=== PATIENT | female | born 1940 | race Caucasian/White ===

== ENCOUNTER 2020-02-16 08:57 | Inpatient (IN) | payer MEDICARE, SELFPAY ==
--- NOTE | ~2020-02-16 | US_ITS ---
EXAMINATION: US venous doppler LE RT EXAM DATE: 02/16/2020 10:27 INDICATION: Right leg pain and swelling. TECHNIQUE: Multiple grayscale, color flow and Doppler images of the right lower extremity deep venous system were obtained and reviewed. There is no prior study for comparison. FINDINGS: The right common femoral, femoral, profunda and popliteal veins demonstrate normal color fl ow, respiratory variation, augmentation and compressibility. Peroneal and posterior tibial veins we re poorly visualized but didn't demonstrate color flow. IMPRESSION: Limited calf evaluation. No evidence of right lower extremity deep venous thrombosis. Reviewed, dictated and finalized at location B.
--- NOTE | ~2020-02-16 | XR_ITS ---
EXAMINATION: XR chest 1V portable EXAM DATE: 02/16/2020 09:50 INDICATION: Shortness of breath. TECHNIQUE: Portable AP frontal chest x-ray was obtained. Comparison is made to prior examination from 11/12/2018. FINDINGS: Some patchy bilateral lower lobe atelectasis or ammonia. Please clinically correlate. Mild cardiomegaly. There is no pneumothorax suspected. There are no pleural effusions. There is aortic art eriosclerosis. There are bony degenerative changes. IMPRESSION: 1. Patchy basilar infiltrate, could be atelectasis or pneumonia. Reviewed, dictated and finalized at location B.
[2020-02-16 09:04] VITALS: BP 146/97; PULSE 64; RESP 20; TEMP 37; O2SAT 99
--- NOTE | 2020-02-16 11:07 | ED.LOWEXIN ---
HPI - Extremity Injury (Lower) General Chief Complaint: Extremity Injury, Lower <KASANDRA Rios Last Filed: 02/16/20 13:31> Stated Complaint: R LOWER LEG PAIN/SWELLING <KASANDRA Rios Last Filed: 02/16/20 13:31> Time Seen by Provider: 02/16/20 09:04 <KASANDRA Rios Last Filed: 02/16/20 13:31> Source: patient and family <KASANDRA Rios Last Filed: 02/16/20 13:31> Mode of arrival: EMS <KASANDRA Rios Last Filed: 02/16/20 13:31> Limitations: no limitations <KASANDRA Rios Last Filed: 02/16/20 13:31> History of Present Illness HPI Narrative: Patient is a 79-year-old female who presents per EMS from home where she lives with her for evaluation of worsening pain redness swelling of the right lower extremity patient notes concern for DVT patient denies injury trauma similar occurrence patient does no history of chronic swelling in this extremity secondary to a fracture. Patient denies any URI symptoms or urinary bowel issues or other sources for infection patient denies antibiotic use in the recent past or currently. Patient on arrival is chronically ill-appearing weak appearing. Patient is currently on Xarelto for chronic atrial fibrillation <KASANDRA Rios Last Filed: 02/16/20 13:31> Related Data Home Medications: Home Medications Medication Instructions Recorded Confirmed amiodarone 400 mg PO DAILY 02/16/20 atorvastatin 40 mg PO DAILY 02/16/20 biotin 10,000 mcg PO DAILY 02/16/20 bupropion HCl 150 mg PO BID 02/16/20 calcium carbonate-vitamin D3 cap PO 02/16/20 [Calcium 600 with Vitamin D3] cholecalciferol (vitamin D3) 50 mcg PO DAILY 02/16/20 [Vitamin D3] clonazepam 1 mg PO DAILY 02/16/20 doxycycline hyclate 100 mg PO BID 02/16/20 duloxetine 30 mg PO HS 02/16/20 esomeprazole magnesium 40 mg PO DAILY 02/16/20 ferrous gluconate 236 mg PO DAILY 02/16/20 furosemide 80 mg PO DAILY 02/16/20 gabapentin 100 mg PO BID 02/16/20 levothyroxine 175 mcg PO ONCE 02/16/20 metoprolol tartrate 25 mg PO BID 02/16/20 mirabegron [Myrbetriq] 50 mg PO DAILY 02/16/20 mirtazapine 15 mg PO HS 02/16/20 oxycodone-acetaminophen 1 tablet PO Q6H PRN 02/16/20 potassium chloride 40 meq PO DAILY 02/16/20 pramipexole 0.25 mg PO HS 02/16/20 rivaroxaban [Xarelto] 40 mg PO DAILY 02/16/20 ropinirole 0.25 mg PO HS 02/16/20 trazodone 200 mg PO HS 02/16/20 trospium 20 mg PO DAILY 02/16/20 valsartan 320 mg PO DAILY 02/16/20 vit C,H-Dd-dshgi-lutein-zeaxan 1 tablet PO BID 02/16/20 [PreserVision AREDS-2] <Cali Emanuel PA-C - Last Filed: 02/16/20 13:31> Allergies/Adverse Reactions: Allergies Allergy/AdvReac Type Severity Reaction Status Date / Time Sulfa (Sulfonamide Allergy Unknown Verified 01/04/17 15:09 Antibiotics) <Cali Emanuel PA-C - Last Filed: 02/16/20 13:31> Review of Systems Review of Systems: All systems reviewed & are unremarkable except as noted in HPI and below <Cali Emanuel PA-C - Last Filed: 02/16/20 13:31> [facility] Past Medical History Medical History: Medical History (Updated 02/16/20 @ 13:31 by Cali Emanuel PA-C) Atrial fibrillation Morbid obesity Warfarin anticoagulation <Cali Emanuel PA-C - Last Filed: 02/16/20 13:31> Surgical History Surgical History: Surgical History History of orthopedic surgery <Cali Emanuel PA-C - Last Filed: 02/16/20 13:31> Family History Family History: Family History (Updated 01/07/17 @ 15:48 by DOCTOR UNKNOWN) Other Family history of arthritis Family history of cardiovascular disease Hypertension <Cali Emanuel PA-C - Last Filed: 02/16/20 13:31> Social History Social History: Social History Smoking status: Never smoker Alcohol intake: current <Cali
[2020-02-16 11:17] LABS: Basophils Percent Auto 0.3 % (0.2-1.2); Eosinophils Percent Auto 0.2 % (0-4.4); Hemoglobin 12.6 g/dL (12.0-15.0); Immature Granulocyte Absolute 0.06 K/mm3 (0.00-0.031); Immature Granulocyte Percent A 0.5 % (0-0.5); Lymphocytes Absolute Auto 0.52 K/mm3 (0.9-3.2); Mean Corpuscular HGB Conc 32.3 g/dl (32-36); Mean Corpuscular Hemoglobin 34.3 pg (26-34); Mean Corpuscular Volume 106.3 fl (80-100); Mean Platelet Volume 10.3 fl (7.4-10.4); Monocytes Percent Auto 7.6 % (2.6-8.5); Neutrophils Absolute Auto 11.4 K/mm3 (1.3-6.7); Neutrophils Percent Auto 87.4 % (45.5-73.1); Platelet Count Result 173 k/mm3 (150-375); Red Blood Count 3.67 M/mm3 (4.2-5.4); Red Cell Distribution Width 14.4 % (11.5-14.5)
[2020-02-16 11:27] LABS: INR 1.4
[2020-02-16 11:28] LABS: Partial Thromboplastin Time 33.7 SECONDS (22.3-36.8)
[2020-02-16 11:33] LABS: Alanine Aminotransferase 21 U/L (4-35); Albumin Level 3.9 g/dL (3.5-5.1); Alkaline Phosphatase 120 U/L (38-126); Anion Gap 5 mmol/L (8-16); Aspartate Amino Transferase 28 U/L (14-36); Bilirubin,Total 0.7 mg/dL (0.2-1.3); Blood Urea Nitrogen 24 mg/dL (7-17); Calcium 8.9 mg/dL (8.4-10.2); Carbon Dioxide 38 mmol/L (22-30); Chloride 97 mmol/L (98-107); Estimated CRCL calculation 60 ml/min; Estimated Glomerular Filt Rate > 60; Glucose 124 mg/dL (65-105); Sodium 140 mmol/L (137-145)
[2020-02-16 11:40] LABS: CRP 3.4 mg/dL (<1.0)
[2020-02-16 11:43] LABS: Add Urine Microscopic? YES; Appearance Urine Cloudy (Clear); Bacteria Urine Trace /hpf; Bilirubin Urine Negative (Negative); Color Urine Yellow (Yellow); Glucose Urine UA Negative (Negative); Ketones Urine Negative (Negative); Leukocyte Esterase Ur Trace LEU/UL (Negative); Mucus Urine Rare /lpf; Nitrate Urine Positive (Negative); Protein Urine Negative (Negative); RBC Urine 0-2 /hpf (0-2); Specific Grav Ur 1.017 (1.001-1.035); Urobilinogen Urine Negative mg/dL (<2.0)
[2020-02-16 11:45] LABS: Blood Urine Negative (Negative)
[2020-02-16] MEDS: HYDROcodone/acetaminophen (*CRX) 5-325 MG TABLET 1 TAB PO (12:53)
[2020-02-16 13:29] VITALS: BP 128/94; PULSE 56; RESP 16; O2SAT 100
[2020-02-16 14:53] VITALS: BP 127/79; PULSE 60; RESP 18; O2SAT 99
[2020-02-16 15:00] VITALS: BP 136/61; PULSE 58; RESP 16; TEMP 36.4; O2SAT 93
--- NOTE | 2020-02-16 15:09 | ADMGEN ---
This patient, Michelle Rogel, was admitted to Medical Room 261-01. Patient/family oriented to hospital policies and general routines including ID bracelet, bed and alarms, visiting hours, pain management, procedures, bathroom and other care routines, personal items, smoking policy, room service/diet, and visiting hours. Valuables list has been completed. Information on how to activate the Rapid Response Team has been discussed. Patient/Family are encouraged to report perceived risks to care and to ask questions if they do not understand what they are told or what they should do.
[2020-02-16 15:52] VITALS: BMI 51.9
[2020-02-16] MEDS: LACTATED RINGERS 1,000 ML 75 ML IV CONT (15:52)
--- NOTE | 2020-02-16 20:00 | PM.IMHP ---
H&P: HPI History of Present Illness Date/Time: 02/16/20 20:00 Chief complaint: Cellulitis right leg/urinary tract infection Narrative: Michelle Rogel is a 79-year-old female with multiple medical problems including paroxysmal atrial fibrillation on long-term anticoagulation, hypertension, hyperlipidemia, obstructive sleep apnea, hypothyroidism, diastolic congestive heart failure, morbid obesity, and several other comorbidities who presented to the emergency department earlier today via EMS from home for evaluation of right leg pain and swelling. She has had faint erythema on her right leg for the past week or so, with worsening erythema and edema over the past 2 days. She also reports pretty significant pain in the right leg, worse with weight-bearing, that she describes as tight and burning in nature. She is also had a generalized sense of malaise. She denies fever, chills, sweats, chest pain, shortness of breath, nausea, and vomiting. She has a chronic cough which is unchanged. No cold or flu symptoms. No dysuria, urinary hesitancy, or frequency. She denies recent travel and sick contacts. No history of venous thromboembolism. Review of Systems Review of Systems: Narrative: Twelve systems were reviewed with pertinent positives and negatives as per HPI. No exposure to those positive for COVID-19. She denies sinus congestion, rhinorrhea, otalgia, and odynophagia. No anosmia or dysgeusia. She denies chest pain shortness of breath. She is compliant with her CPAP at nighttime. She has home oxygen p.r.n. as needed. She takes doxycycline twice a day for chronic open abdominal wound post hysterectomy. She denies symptoms of urinary tract infection. Except as documented, all other systems were reviewed and are negative. [facility] Past Medical History Medical History (Updated 02/16/20 @ 22:52 by Windy Levin PA-C) Anemia Anxiety Chronic diastolic congestive heart failure Echocardiogram in October 2018 demonstrated hyperdynamic left ventricular function with an ejection fraction of 71%, moderate left atrial enlargement, and grade 2 diastolic dysfunction. Chronic pain syndrome Chronic wound infection of abdomen On long-term doxycycline b.i.d. Current use of tubing oiler anticoagulation On Xarelto for stroke prophylaxis given paroxysmal atrial fibrillation. Depression Essential hypertension Gastroesophageal reflux disease Hyperlipidemia Macular degeneration Morbid obesity Obstructive sleep apnea on CPAP Overactive bladder Paroxysmal atrial fibrillation On Xarelto for stroke prophylaxis. Postsurgical hypothyroidism Restless leg syndrome Shingles Thyroid cancer Status post thyroidectomy. Surgical History Surgical History (Updated 02/16/20 @ 22:52 by Windy Levin PA-C) H/O bilateral cataract extraction History of appendectomy (~2003) Complicated postoperative course with chronic midline abdominal wound. History of hernia repair History of orthopedic surgery ORIF right lower extremity fracture. History of ovarian cystectomy History of spinal surgery History of thyroidectomy History of total abdominal hysterectomy History of total bilateral knee replacement Family History Family History Mother Alzheimer's dementia Hypertension Father Acute myocardial infarction Sibling Hypertension Other Family history of arthritis Family history of cardiovascular disease Social History Social History Social History: Surrogate decision maker: Prince Rogel, . Code status: Full code. Smoking status: Never smoker Alcohol intake: current Substance use: never Additional living arrangements comments: Lives in [place] with her . They have 3 children. Ambulates with a walker. Occupation/Education: retired Spiritual care concerns: No Meds Home Medications and Allergies H
[2020-02-16] MEDS: ACETAMINOPHEN 325 MG TABLET 650 MG PO (20:57)
[2020-02-16 21:27] VITALS: PULSE 60; RESP 17; O2SAT 91
[2020-02-16 22:00] VITALS: BP 144/53; PULSE 62; RESP 20; TEMP 36.8; O2SAT 92
[2020-02-16] MEDS: TOLNAFTATE 1% POWDER 45 GM BTL 1 APPLIC TOPICAL (23:15)
[2020-02-16] MEDS: oxyCODONE/ACETAMINOPHEN (*CRX) 5-325 MG TABLET 1 TABLET PO (23:39)
[2020-02-17] VITALS (10 sets, daily range): BP systolic 135–146; BP diastolic 50–65; PULSE 55–64; RESP 16–22; TEMP 36.4; O2SAT 90–100
[2020-02-17] MEDS: rOPINIRole HCL 0.25 MG TABLET PO ×2 (00:03→21:13)
[2020-02-17] MEDS: METOPROLOL TARTRATE 25 MG TABLET PO ×3 (00:04→21:14)
[2020-02-17] MEDS: DULoxetine HCL 30 MG CAPSULE.DR PO ×2 (00:05→21:13)
[2020-02-17] MEDS: PRAMIPEXOLE 0.25 MG TABLET PO ×2 (00:05→21:24)
[2020-02-17] MEDS: traZODone HCL 50 MG TABLET 200 MG PO ×2 (00:15→21:13)
[2020-02-17] MEDS: MIRTAZAPINE SOLTAB 15 MG TAB.DISPER PO ×2 (00:19→21:18)
[2020-02-17 06:32] LABS: Basophils Percent Auto 0.2 % (0.2-1.2); Eosinophils Absolute Auto 0.1 K/mm3 (0-0.3); Eosinophils Percent Auto 0.7 % (0-4.4); Hematocrit 34.3 % (37.0-47.0); Immature Granulocyte Absolute 0.06 K/mm3 (0.00-0.031); Immature Granulocyte Percent A 0.7 % (0-0.5); Lymphocytes Percent Auto 8.1 % (18.3-44.2); Mean Corpuscular HGB Conc 32.1 g/dl (32-36); Mean Corpuscular Hemoglobin 33.4 pg (26-34); Mean Corpuscular Volume 104.3 fl (80-100); Mean Platelet Volume 9.8 fl (7.4-10.4); Monocytes Absolute Auto 0.8 K/mm3 (0.1-0.6); Monocytes Percent Auto 9.3 % (2.6-8.5); Platelet Count Result 149 k/mm3 (150-375); Red Blood Count 3.29 M/mm3 (4.2-5.4); Red Cell Distribution Width 14.5 % (11.5-14.5); White Blood Count 8.6 K/mm3 (4.5-10.0)
[2020-02-17 06:44] LABS: Alanine Aminotransferase 15 U/L (4-35); Albumin Level 3.2 g/dL (3.5-5.1); Alkaline Phosphatase 93 U/L (38-126); Aspartate Amino Transferase 23 U/L (14-36); Bilirubin,Total 0.8 mg/dL (0.2-1.3)
[2020-02-17 07:16] LABS: Anion Gap 4 mmol/L (8-16); Blood Urea Nitrogen 20 mg/dL (7-17); Calcium 8.2 mg/dL (8.4-10.2); Carbon Dioxide 35 mmol/L (22-30); Chloride 98 mmol/L (98-107); Estimated CRCL calculation 59 ml/min; Estimated Glomerular Filt Rate > 60; Glucose 97 mg/dL (65-105); Hemoglobin A1C 4.8 % (<5.7); Potassium 3.8 mmol/L (3.4-5.0); Sodium 137 mmol/L (137-145)
[2020-02-17] MEDS: oxyCODONE/ACETAMINOPHEN (*CRX) 5-325 MG TABLET 1 TABLET PO ×3 (07:47→23:52)
[2020-02-17 08:09] LABS: Magnesium 2.2 mg/dL (1.6-2.3)
[2020-02-17] MEDS: LEVOTHYROXINE SODIUM 100 MCG TABLET PO (09:28)
[2020-02-17] MEDS: LEVOTHYROXINE SODIUM 75 MCG TABLET PO (09:28)
[2020-02-17] MEDS: AMIODARONE HCL 200 MG TABLET 400 MG PO (11:10)
[2020-02-17] MEDS: POTASSIUM CHLORIDE 20 MEQ TABLET.ER 40 MEQ PO (11:10)
[2020-02-17] MEDS: CHOLECALCIFEROL 1,000 UNITS TABLET 2000 UNITS PO (11:11)
[2020-02-17] MEDS: ATORVASTATIN 40 MG TABLET PO (11:11)
[2020-02-17] MEDS: GABAPENTIN 100 MG CAPSULE PO ×2 (11:12→16:45)
[2020-02-17] MEDS: MIRABEGRON 50 MG ER TABLET PO (11:12)
[2020-02-17] MEDS: DOXYCYCLINE HYCLATE 100 MG TABLET PO ×2 (11:12→16:45)
[2020-02-17] MEDS: PANTOPRAZOLE 40 MG TABLET PO (11:13)
[2020-02-17] MEDS: TOLNAFTATE 1% POWDER 45 GM BTL 1 APPLIC TOPICAL ×2 (11:13→21:23)
[2020-02-17] MEDS: VALSARTAN 160 MG TABLET 320 MG PO (11:13)
[2020-02-17 11:50] LABS: Free T4 Free Thyroxine Reflex 1.04 ng/dL (0.78-2.19)
[2020-02-17 12:32] LABS: Total Triiodothyronine (T3) 0.48 NG/ML (0.97-1.69)
[2020-02-17] MEDS: FERROUS GLUCONATE 324 MG TABLET PO (13:57)
--- NOTE | 2020-02-17 14:49 | PCOTNOTE ---
Attempted OT evaluation, patient declined stating that she has just been up with physical therapy and she does not want to do it again. Patient educated in importance of OT participation but patient continues to decline. Will continue to attempt.
--- NOTE | 2020-02-17 14:49 | PM.IMPN ---
Progress Note: A&P Assessment and Plan (1) Cellulitis of right leg: Code(s): L03.115 - Cellulitis of right lower limb Status: Acute Assessment and Plan: Continue IV ceftriaxone (day 2) and monitor for clinical improvement. Monitor blood cultures. (2) Abnormal urinalysis: Code(s): R82.90 - Unspecified abnormal findings in urine Status: Acute Assessment and Plan: Asymptomatic bacteriuria. Continue IV ceftriaxone while awaiting urine cultures. (3) Chronic wound infection of abdomen: Code(s): S31.109A - Unspecified open wound of abdominal wall, unspecified quadrant without penetration into peritoneal cavity, initial encounter; L08.9 - Local infection of the skin and subcutaneous tissue, unspecified Status: Acute Assessment and Plan: Patient has had this wound for several years after an abdominal surgery. Seen by wound RN. Continue wound care. No evidence of acute infection. (4) Essential hypertension: Code(s): I10 - Essential (primary) hypertension Status: Chronic Assessment and Plan: Blood pressures stable. Continue valsartan and metoprolol. Monitor BP and adjust treatment as needed. (5) Hyperlipidemia: Code(s): E78.5 - Hyperlipidemia, unspecified Status: Chronic Assessment and Plan: Continue home statin therapy. (6) Obstructive sleep apnea on CPAP: Code(s): G47.33 - Obstructive sleep apnea (adult) (pediatric); Z99.89 - Dependence on other enabling machines and devices Status: Chronic Assessment and Plan: CPAP. (7) Postsurgical hypothyroidism: Code(s): E89.0 - Postprocedural hypothyroidism Status: Chronic Assessment and Plan: Continue home levothyroxine. (8) Paroxysmal atrial fibrillation: Code(s): I48.0 - Paroxysmal atrial fibrillation Status: Chronic Assessment and Plan: Rate controlled on home amiodarone. On long-term anticoagulation with Xarelto. (9) Current use of continuous churn buttermaker anticoagulation: Code(s): Z79.01 - manager intermediate (current) use of anticoagulants Status: Chronic Assessment and Plan: Continue Xarelto. Subjective Date/time seen: 02/17/20 1330 Interval history: Ms. Rogel is a 79yo F admitted for right lower extremity cellulitis. She describes her right lower extremity pain is a bit improved today. She denies any chest pain, shortness of breath. She is tolerating oral intake without nausea, vomiting, or abdominal pain. No acute events overnight, offers no complaints. Discussed at length the importance of her taking her home Lasix which unfortunately she adamantly declines despite education. Review of Systems Review of Systems: Narrative: Twelve systems were reviewed with pertinent positives and negatives as per HPI. Exam Narrative: Exam Narrative: General: Morbidly obese female resting comfortably sitting up in bedside chair in no acute distress. HEENT: Normocephalic, EOMI, oral mucosa moist. Cardiovascular: Rate and rhythm are regular. Respiratory: Lungs clear to auscultation in all guzman. Non-labored breathing. Abdomen: Soft, non-tender, non-distended, bowel sounds present. Chronic abdominal wound is covered with a Mepilex. Extremities: [place] edema to ANTONY lower extremities below the knee with chronic skin venous stasis skin changes. Right lower extremity erythematous and indurated, edematous and warm to touch nearly circumferential at mid-adan. Neuro: No focal neurological deficits. Speech is clear. Objective Data Vital Signs Vital Signs:
[2020-02-17] MEDS: RIVAROXABAN 20 MG TABLET PO (16:45)
[2020-02-18] VITALS (8 sets, daily range): BP systolic 140–152; BP diastolic 65–86; PULSE 50–82; RESP 12–20; TEMP 36.1–37.1; O2SAT 91–98
[2020-02-18] MEDS: LEVOTHYROXINE SODIUM 100 MCG TABLET PO (05:48)
[2020-02-18] MEDS: LEVOTHYROXINE SODIUM 75 MCG TABLET PO (05:48)
[2020-02-18] MEDS: METOPROLOL TARTRATE 25 MG TABLET PO ×2 (09:11→20:23)
[2020-02-18] MEDS: MIRABEGRON 50 MG ER TABLET PO (09:11)
[2020-02-18] MEDS: GABAPENTIN 100 MG CAPSULE PO ×2 (09:11→17:31)
[2020-02-18] MEDS: AMIODARONE HCL 200 MG TABLET 400 MG PO (09:12)
[2020-02-18] MEDS: POTASSIUM CHLORIDE 20 MEQ TABLET.ER 40 MEQ PO (09:12)
[2020-02-18] MEDS: CHOLECALCIFEROL 1,000 UNITS TABLET 2000 UNITS PO (09:12)
[2020-02-18] MEDS: VALSARTAN 160 MG TABLET 320 MG PO (09:12)
[2020-02-18] MEDS: PANTOPRAZOLE 40 MG TABLET PO (09:12)
[2020-02-18] MEDS: ATORVASTATIN 40 MG TABLET PO (09:13)
[2020-02-18] MEDS: DOXYCYCLINE HYCLATE 100 MG TABLET PO ×2 (09:13→17:31)
[2020-02-18] MEDS: TOLNAFTATE 1% POWDER 45 GM BTL 1 APPLIC TOPICAL ×2 (09:13→20:27)
--- NOTE | 2020-02-18 09:36 | PM.IMPN ---
Progress Note: A&P Assessment and Plan (1) Cellulitis of right leg: Code(s): L03.115 - Cellulitis of right lower limb Status: Acute Assessment and Plan: Continue IV ceftriaxone (day 3) and monitor for clinical improvement. Monitor blood cultures. Blood cultures 1 of 2 positive with gram positive bacilli. It is possible this could be contaminant. Start Vancomycin until this pathogen is identified, repeat blood cultures. (2) Urinary tract infection: Qualifiers: Urinary tract infection type: acute cystitis Hematuria presence: without hematuria Qualified Code(s): N30.00 - Acute cystitis without hematuria Code(s): N39.0 - Urinary tract infection, site not specified Status: Acute Assessment and Plan: Urine culture grew > 100,000 Proteus mirabilis. Continue IV rocephin as noted above. (3) Chronic wound infection of abdomen: Qualifiers: Encounter type: subsequent encounter Qualified Code(s): S31.109D - Unspecified open wound of abdominal wall, unspecified quadrant without penetration into peritoneal cavity, subsequent encounter; L08.9 - Local infection of the skin and subcutaneous tissue, unspecified Code(s): S31.109A - Unspecified open wound of abdominal wall, unspecified quadrant without penetration into peritoneal cavity, initial encounter; L08.9 - Local infection of the skin and subcutaneous tissue, unspecified Status: Acute Assessment and Plan: Patient has had this wound for several years after an abdominal surgery. Seen by wound RN. Continue wound care. No evidence of acute infection. (4) Essential hypertension: Code(s): I10 - Essential (primary) hypertension Status: Chronic Assessment and Plan: Blood pressures stable. Continue valsartan and metoprolol. Monitor BP and adjust treatment as needed. (5) Hyperlipidemia: Qualifiers: Hyperlipidemia type: unspecified Qualified Code(s): E78.5 - Hyperlipidemia, unspecified Code(s): E78.5 - Hyperlipidemia, unspecified Status: Chronic Assessment and Plan: Continue home statin therapy. (6) Obstructive sleep apnea on CPAP: Code(s): G47.33 - Obstructive sleep apnea (adult) (pediatric); Z99.89 - Dependence on other enabling machines and devices Status: Chronic Assessment and Plan: CPAP. (7) Postsurgical hypothyroidism: Code(s): E89.0 - Postprocedural hypothyroidism Status: Chronic Assessment and Plan: Continue home levothyroxine. (8) Paroxysmal atrial fibrillation: Code(s): I48.0 - Paroxysmal atrial fibrillation Status: Chronic Assessment and Plan: Rate controlled on home amiodarone. On long-term anticoagulation with Xarelto. (9) Current use of group home anticoagulation: Code(s): Z79.01 - terminologist (current) use of anticoagulants Status: Chronic Assessment and Plan: Continue Xarelto. Subjective Date/time seen: 02/18/20 0845 Interval history: Ms. Rogel is a 79yo F admitted for right lower extremity cellulitis. Her right leg pain is improved today. She tolerated some breakfast without nausea, vomiting or abdominal pain. She denies chest pain, shortness of breath or cough. Discussed the importance of her taking her home Lasix which unfortunately she adamantly declines despite education. Review of Systems Review of Systems: Narrative: Twelve systems were reviewed with pertinent positives and negatives as per HPI. Exam Narrative: Exam Narrative: General: Morbidly obese female resting
[2020-02-18] MEDS: FERROUS GLUCONATE 324 MG TABLET PO (11:33)
[2020-02-18] MEDS: oxyCODONE/ACETAMINOPHEN (*CRX) 5-325 MG TABLET 1 TABLET PO ×2 (11:33→17:32)
--- NOTE | 2020-02-18 12:02 | PCOTNOTE ---
On 02/18/20, the student, Gela Ramirez, provided care and completed [facility] documentation on this patient. I have reviewed the student's documentation and agree with the findings.
[2020-02-18 12:13] LABS: Basophils Percent Auto 0.3 % (0.2-1.2); Eosinophils Absolute Auto 0.1 K/mm3 (0-0.3); Eosinophils Percent Auto 0.8 % (0-4.4); Hematocrit 38.2 % (37.0-47.0); Hemoglobin 12.3 g/dL (12.0-15.0); Immature Granulocyte Absolute 0.06 K/mm3 (0.00-0.031); Immature Granulocyte Percent A 0.7 % (0-0.5); Lymphocytes Absolute Auto 0.54 K/mm3 (0.9-3.2); Lymphocytes Percent Auto 5.9 % (18.3-44.2); Mean Corpuscular HGB Conc 32.2 g/dl (32-36); Mean Corpuscular Volume 105.5 fl (80-100); Mean Platelet Volume 10.3 fl (7.4-10.4); Monocytes Absolute Auto 0.7 K/mm3 (0.1-0.6); Monocytes Percent Auto 7.6 % (2.6-8.5); Neutrophils Absolute Auto 7.7 K/mm3 (1.3-6.7); Neutrophils Percent Auto 84.7 % (45.5-73.1); Platelet Count Result 174 k/mm3 (150-375); Red Blood Count 3.62 M/mm3 (4.2-5.4); Red Cell Distribution Width 14.2 % (11.5-14.5); White Blood Count 9.1 K/mm3 (4.5-10.0)
[2020-02-18 12:29] LABS: Anion Gap 3 mmol/L (8-16); Blood Urea Nitrogen 16 mg/dL (7-17); Calcium 8.8 mg/dL (8.4-10.2); Carbon Dioxide 37 mmol/L (22-30); Chloride 97 mmol/L (98-107); Estimated CRCL calculation 61 ml/min; Estimated Glomerular Filt Rate > 60; Glucose 112 mg/dL (65-105); Magnesium 2.3 mg/dL (1.6-2.3); Potassium 4.3 mmol/L (3.4-5.0); Sodium 137 mmol/L (137-145)
[2020-02-18] MEDS: RIVAROXABAN 20 MG TABLET PO (17:32)
[2020-02-18] MEDS: traZODone HCL 50 MG TABLET 200 MG PO (20:23)
[2020-02-18] MEDS: PRAMIPEXOLE 0.25 MG TABLET PO (20:24)
[2020-02-18] MEDS: MIRTAZAPINE SOLTAB 15 MG TAB.DISPER PO (20:24)
[2020-02-18] MEDS: DULoxetine HCL 30 MG CAPSULE.DR PO (20:24)
[2020-02-18] MEDS: rOPINIRole HCL 0.25 MG TABLET PO (20:24)
[2020-02-18] MEDS: ACETAMINOPHEN 325 MG TABLET 650 MG PO (20:30)
[2020-02-19] VITALS (7 sets, daily range): BP systolic 144–162; BP diastolic 59–92; PULSE 50–78; RESP 16–22; TEMP 36.1–36.9; O2SAT 94–99
[2020-02-19] MEDS: LEVOTHYROXINE SODIUM 75 MCG TABLET PO (06:16)
[2020-02-19] MEDS: LEVOTHYROXINE SODIUM 100 MCG TABLET PO (06:16)
[2020-02-19 07:40] LABS: Basophils Percent Auto 0.3 % (0.2-1.2); Eosinophils Absolute Auto 0.2 K/mm3 (0-0.3); Eosinophils Percent Auto 1.8 % (0-4.4); Hematocrit 37.5 % (37.0-47.0); Hemoglobin 12.1 g/dL (12.0-15.0); Immature Granulocyte Absolute 0.08 K/mm3 (0.00-0.031); Immature Granulocyte Percent A 0.9 % (0-0.5); Lymphocytes Absolute Auto 0.62 K/mm3 (0.9-3.2); Lymphocytes Percent Auto 7.1 % (18.3-44.2); Mean Corpuscular HGB Conc 32.3 g/dl (32-36); Mean Corpuscular Hemoglobin 33.4 pg (26-34); Mean Corpuscular Volume 103.6 fl (80-100); Mean Platelet Volume 9.7 fl (7.4-10.4); Monocytes Absolute Auto 0.7 K/mm3 (0.1-0.6); Monocytes Percent Auto 8.3 % (2.6-8.5); Neutrophils Absolute Auto 7.1 K/mm3 (1.3-6.7); Neutrophils Percent Auto 81.6 % (45.5-73.1); Platelet Count Result 195 k/mm3 (150-375); Red Blood Count 3.62 M/mm3 (4.2-5.4); Red Cell Distribution Width 13.9 % (11.5-14.5); White Blood Count 8.7 K/mm3 (4.5-10.0)
[2020-02-19 07:55] LABS: Anion Gap 5 mmol/L (8-16); Blood Urea Nitrogen 16 mg/dL (7-17); Calcium 8.8 mg/dL (8.4-10.2); Carbon Dioxide 35 mmol/L (22-30); Chloride 98 mmol/L (98-107); Estimated CRCL calculation 61 ml/min; Estimated Glomerular Filt Rate > 60; Glucose 103 mg/dL (65-105); Magnesium 2.2 mg/dL (1.6-2.3); Potassium 4.2 mmol/L (3.4-5.0); Sodium 138 mmol/L (137-145)
[2020-02-19] MEDS: ATORVASTATIN 40 MG TABLET PO (09:02)
[2020-02-19] MEDS: AMIODARONE HCL 200 MG TABLET 400 MG PO (09:02)
[2020-02-19] MEDS: DOXYCYCLINE HYCLATE 100 MG TABLET PO ×2 (09:02→17:28)
[2020-02-19] MEDS: GABAPENTIN 100 MG CAPSULE PO ×2 (09:02→17:28)
[2020-02-19] MEDS: CHOLECALCIFEROL 1,000 UNITS TABLET 2000 UNITS PO (09:02)
[2020-02-19] MEDS: POTASSIUM CHLORIDE 20 MEQ TABLET.ER 40 MEQ PO (09:03)
[2020-02-19] MEDS: METOPROLOL TARTRATE 25 MG TABLET PO ×2 (09:03→20:29)
[2020-02-19] MEDS: MIRABEGRON 50 MG ER TABLET PO (09:03)
[2020-02-19] MEDS: PANTOPRAZOLE 40 MG TABLET PO (09:03)
[2020-02-19] MEDS: VALSARTAN 160 MG TABLET 320 MG PO (09:03)
[2020-02-19] MEDS: TOLNAFTATE 1% POWDER 45 GM BTL 1 APPLIC TOPICAL ×2 (09:07→20:35)
[2020-02-19] MEDS: FERROUS GLUCONATE 324 MG TABLET PO (11:55)
[2020-02-19] MEDS: oxyCODONE/ACETAMINOPHEN (*CRX) 5-325 MG TABLET 1 TABLET PO ×2 (12:49→23:03)
--- NOTE | 2020-02-19 14:09 | P.PNIM_ITS ---
Progress Note: A&P Assessment and Plan (1) Cellulitis of right leg: Code(s): L03.115 - Cellulitis of right lower limb Status: Acute Assessment and Plan: * Continue IV ceftriaxone (day 4), clinically improving. Monitor blood cultures. * Vancomycin started 02/17 for empiric coverage of blood cultures 02/15; 1 of 2 bcx positive growing Bacillus species. It is possible this could be contaminant vs. true/transient bacteremia. Repeat blood cultures from 02/17 are no growth to date. * Appreciate Dr Cerda's recommendations regarding the blood cultures. (2) Urinary tract infection: Qualifiers: Hematuria presence: without hematuria Urinary tract infection type: acute cystitis Qualified Code(s): N30.00 - Acute cystitis without hematuria Code(s): N39.0 - Urinary tract infection, site not specified Status: Acute Assessment and Plan: * Urine culture grew > 100,000 Proteus mirabilis. Continue IV rocephin as noted above. (3) Chronic wound infection of abdomen: Qualifiers: Encounter type: subsequent encounter Qualified Code(s): S31.109D - Unspecified open wound of abdominal wall, unspecified quadrant without penetration into peritoneal cavity, subsequent encounter; L08.9 - Local infec tion of the skin and subcutaneous tissue, unspecified Code(s): S31.109A - Unspecified open wound of abdominal wall, unspecified quadrant without penetration into peritoneal cavity, initial encounter; L08.9 - Local infection of the skin and subcutaneous tissue, unspecified Status: Acute Assessment and Plan: * Patient has had this wound for several years after an abdominal surgery. Seen by wound RN. Continue wound care. No evidence of acute infection. Not p ainful. (4) Essential hypertension: Code(s): I10 - Essential (primary) hypertension Status: Chronic Assessment and Plan: * Blood pressures stable/high end of normal may be secondary to pain. Continue valsartan and metoprolol. Monitor BP and adjust treatment as needed. (5) Hyperlipidemia: Qualifiers: Hyperlipidemia type: unspecified Qualified Code(s): E78.5 - Hyperlipidemia, unspecified Code(s): E78.5 - Hyperlipidemia, unspecified Status: Chronic Assessment and Plan: * Continue home statin therapy. (6) Obstructive sleep apnea on CPAP: Code(s): G47.33 - Obstructive sleep apnea (adult) (pediatric); Z99.89 - Dependence on other enabling machines and devices Status: Chronic Assessment and Plan: * CPAP. (7) Postsurgical hypothyroidism: Code(s): E89.0 - Postprocedural hypothyroidism Status: Chronic Assessment and Plan: * Continue home levothyroxine. (8) Paroxysmal atrial fibrillation: Code(s): I48.0 - Paroxysmal atrial fibrillation Status: Chronic Assessment and Plan: * Rate controlled on home amiodarone. On long-term anticoagulation with Xarelt o. (9) Current use of termination clerk anticoagulation: Code(s): Z79.01 - shelter (current) use of anticoagulants Status: Chronic Assessment and Plan: * Continue Xarelto. Subjective Date/time seen: 02/19/20914 I
--- NOTE | 2020-02-19 14:09 | PM.IMPN ---
Progress Note: A&P Assessment and Plan (1) Cellulitis of right leg: Code(s): L03.115 - Cellulitis of right lower limb Status: Acute Assessment and Plan: Continue IV ceftriaxone (day 4), clinically improving. Monitor blood cultures. Vancomycin started 02/17 for empiric coverage of blood cultures 02/15; 1 of 2 bcx positive growing Bacillus species. It is possible this could be contaminant vs. true/transient bacteremia. Repeat blood cultures from 02/17 are no growth to date. Appreciate Dr Cerda's recommendations regarding the blood cultures. (2) Urinary tract infection: Qualifiers: Hematuria presence: without hematuria Urinary tract infection type: acute cystitis Qualified Code(s): N30.00 - Acute cystitis without hematuria Code(s): N39.0 - Urinary tract infection, site not specified Status: Acute Assessment and Plan: Urine culture grew > 100,000 Proteus mirabilis. Continue IV rocephin as noted above. (3) Chronic wound infection of abdomen: Qualifiers: Encounter type: subsequent encounter Qualified Code(s): S31.109D - Unspecified open wound of abdominal wall, unspecified quadrant without penetration into peritoneal cavity, subsequent encounter; L08.9 - Local infection of the skin and subcutaneous tissue, unspecified Code(s): S31.109A - Unspecified open wound of abdominal wall, unspecified quadrant without penetration into peritoneal cavity, initial encounter; L08.9 - Local infection of the skin and subcutaneous tissue, unspecified Status: Acute Assessment and Plan: Patient has had this wound for several years after an abdominal surgery. Seen by wound RN. Continue wound care. No evidence of acute infection. Not painful. (4) Essential hypertension: Code(s): I10 - Essential (primary) hypertension Status: Chronic Assessment and Plan: Blood pressures stable/high end of normal may be secondary to pain. Continue valsartan and metoprolol. Monitor BP and adjust treatment as needed. (5) Hyperlipidemia: Qualifiers: Hyperlipidemia type: unspecified Qualified Code(s): E78.5 - Hyperlipidemia, unspecified Code(s): E78.5 - Hyperlipidemia, unspecified Status: Chronic Assessment and Plan: Continue home statin therapy. (6) Obstructive sleep apnea on CPAP: Code(s): G47.33 - Obstructive sleep apnea (adult) (pediatric); Z99.89 - Dependence on other enabling machines and devices Status: Chronic Assessment and Plan: CPAP. (7) Postsurgical hypothyroidism: Code(s): E89.0 - Postprocedural hypothyroidism Status: Chronic Assessment and Plan: Continue home levothyroxine. (8) Paroxysmal atrial fibrillation: Code(s): I48.0 - Paroxysmal atrial fibrillation Status: Chronic Assessment and Plan: Rate controlled on home amiodarone. On long-term anticoagulation with Xarelto. (9) Current use of snf anticoagulation: Code(s): Z79.01 - oil heaterman (current) use of anticoagulants Status: Chronic Assessment and Plan: Continue Xarelto. Subjective Date/time seen: 02/19/20914 Interval history: Ms. Rogel is a 79yo F admitted for right lower extremity cellulitis. Her right leg pain is improved and she is feeling well. Difficulty with IV access last night but after that she slept well with her CPAP on. Tolerated some breakfast without nausea or vomiting. She denies chest pain, shortness of breath or cough. Again discussed the importance of her taking her home Lasix which
--- NOTE | 2020-02-19 16:10 | WPDINFPN2 ---
Progress Note: A&P Assessment and Plan (1) Bacteremia: Code(s): R78.81 - Bacteremia Status: Acute Assessment and Plan: 1. Bacillus bacteremia, skin contaminant 2. RLE cellulitis 3. Chronic mesh infection REC No further Rx/eval for the + BC. Can change to oral antibiotic such as cefdinir once cellulitis substantially improved. Once that is done, then resume chronic doxycycline. Subjective Date/time seen: 02/19/20 16:10 Objective Data Vital Signs Vital Signs: Vital Signs - 24 hr 02/18/20 20:23 02/18/20 22:00 02/18/20 22:50 Temperature 36.8 C Pulse Rate 82 58 L 60 Respiratory Rate 20 17 Blood Pressure 151/86 H Pulse Oximetry 94 94 02/19/20 04:55 02/19/20 09:02 02/19/20 09:03 Temperature 36.1 C L Pulse Rate 50 L 57 L 57 L Respiratory Rate 22 H Blood Pressure 144/65 H Pulse Oximetry 99 02/19/20 14:00 Temperature 36.9 C Pulse Rate 56 L Respiratory Rate 16 Blood Pressure 147/59 H Pulse Oximetry 94 Intake/Output Intake/Output: Intake & Output 02/16/20 02/17/20 02/18/20 02/19/20 23:59 23:59 23:59 23:59 Intake Total 270 3230 1640 1150 Output Total 500 200 Balance 270 2730 1640 950 Meds/Results Medications: Active Medications Generic Name Dose Route Start Last Admin Trade Name Freq PRN Reason Stop Dose Admin Acetaminophen 650 mg 02/16/20 20:49 02/18/20 20:30 Acetaminophen 325 Mg Tablet PO 650 mg Q6H PRN Administration Mild Pain (1-3) or Fever Amiodarone HCl 400 mg 02/17/20 09:00 02/19/20 09:02 Pacerone PO 03/18/20 09:01 400 mg DAILY DARWIN Administration Atorvastatin Calcium 40 mg 02/17/20 09:00 02/19/20 09:02 Lipitor PO 40 mg DAILY DARWIN Administration Bupropion HCl 150 mg 02/16/20 23:30 02/19/20 09:03 Wellbutrin-Sr (12 Hr) PO 150 mg Q12HR DARWIN Administration Calcium Carbonate 500 mg 02/17/20 09:00 02/19/20 09:03 Os-Messi 500 +D Tablet PO 03/18/20 09:01 500 mg DAILY DARWIN Administration Clonazepam 1 mg 02/16/20 22:55 Klonopin Tablet PO DAILY PRN Anxiety Doxycycline Hyclate 100 mg 02/17/20 09:00 02/19/20 09:02 Vibramycin Tab PO 100 mg BID DARWIN Administration Duloxetine HCl 30 mg 02/16/20 23:35 02/18/20 20:24 Cymbalta PO 30 mg HS DARWIN Administration Ferrous Gluconate 324 mg 02/17/20 12:00 02/19/20 11:55 Ferrous Gluconate PO 324 mg DAILY@1200 DARWIN Administration Gabapentin 100 mg 02/17/20 09:00 02/19/20 09:02 Neurontin PO 100 mg BID DARWIN Administration Ceftriaxone Sodium/Dextrose 1 gm in 50 mls @ 100 mls/hr 02/19/20 09:00 02/19/20 09:28 Rocephin 1 Gm/D5w 50 Ml IVPB Infused Q24H DARWIN Infusion Vancomycin HCl 1,750 mg in 500 mls @ 250 mls/hr 02/19/20 10:00 02/19/20 12:30 Vancomycin 1,750 Mg/D5w 500 Ml IVPB Infused Q18H DARWIN Infusion Levothyroxine Sodium 100 mcg 02/17/20 07:45 02/19/20 06:16 Synthroid PO 100 mcg DAILY@0630 DARWIN Administration Levothyroxine Sodium 75 mcg 02/17/20 07:50 02/19/20 06:16 Synthroid PO 75 mcg DAILY@0630 DARWIN Administration Metoprolol Tartrate 25 mg 02/16/20 23:35 02/19/20 09:03 Lopressor PO 25 mg Q12HR DARWIN Administration Mirabegron 50 mg 02/17/20 09:00 02/19/20 09:03 Myrbetriq PO 50 mg DAILY DARWIN Administration Mirtazapine 15 mg 02/16/20 23:40 02/18/20 20:24 Remeron Soltab PO 15 mg HS DARWIN Administration Trospium- 20 each 02/17/20 09:00 02/18/20 17:32 Nonformulary. XX 03/18/20 09:01 Not Given DAILY DARWIN Ondansetron HCl 4 mg 02/16/20 13:32 Zofran Inj IV PUSH Q4H PRN Nausea Oxycodone/Acetaminophen 1 tablet 02/16/20 22:55 02/19/20 12:49 Oxycodone/Acetaminophen (*Crx) 5-325 Mg Tablet PO 1 tablet Q6H PRN Administration Pain, Moderate Pantoprazole Sodium 40 mg 02/17/20 09:00 02/19/20 09:03 Protonix PO 03/18/20 09:01 40 mg DAILY DARWIN Administration Potassium Chloride 40 meq 02/17/20 08:00
[2020-02-19] MEDS: RIVAROXABAN 20 MG TABLET PO (17:28)
--- NOTE | 2020-02-19 20:27 | CONS_ITS ---
DATE OF CONSULTATION: 02/19/2020 REASON FOR CONSULTATION: Bacteremia. HISTORY OF PRESENT ILLNESS: A 79-year-old female, who has had previous abdominal surgery to repair the ventral hernias. 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 I did not follow her in the office, but other physicians have given her chronic doxycycline. She has been told that removal of the mesh is not feasible. She also had previous total knee arthroplasties bilaterally and previous fracture of the right distal leg requiring a plate. In addition, she has morbid obesity. As a result, she has chronic leg edema and presented to the hospital on February 17 with leg pain, circumferential in the mid to lower adan. She has been given ceftriaxone. Blood cultures collected and are now positive and consultation requested. She has been given a single dose of vancomycin. The doxycycline has not caused any side effects for her in particular, is presently on hold. The patient had no fever, chills, sweats, other than the orthopedic plate in the knee arthroplasties, no other prosthetic material in place. She has never had bloodstream infection to her knowledge. ALLERGIES: SULFA. HABITS: No tobacco. No alcohol. PRESENT MEDICATIONS: No immunosuppressants. PAST MEDICAL HISTORY: In addition to the above, IDANIA, thyroidectomy, spinal surgery, cyst removal from ovary, appendectomy in 2003, cataract with extraction, thyroid cancer, herpes zoster, PAF, OAB, CHARLES, macular degeneration, hyperlipidemia, GERD, hypertension, depression, diastolic heart failure, anemia, anxiety. REVIEW OF SYSTEMS: No open wounds over her right lower extremity. No previous DVT. A 14-point review otherwise negative. FAMILY HISTORY: Not pertinent to her present illness. SOCIAL HISTORY: She is . Three children. Lives locally. Retired. Customarily, needs a walker for ambulation. PHYSICAL EXAMINATION: GENERAL: This is an early female, appears her actual age, in no acute distress. VITAL SIGNS: Afebrile since arrival, 147/59, 56, 16, 94% on room air. SKIN: Warm and dry. No generalized rashes. EENT: The conjunctivae are normal. Pupils equal, round, and reactive to light. No icterus. The oropharynx, oral mucosa normal. NECK: No masses, adenopathy, meningismus. LUNGS: Clear to auscultation. CHEST: No indwelling vascular devices. CARDIAC: Soft S1, S2. Bradycardic, regular. No murmurs or gallops. Unable to palpate dorsalis pedis due to edema. Radial pulses 1+. She has no abdominal bruits. ABDOMEN: Massively obese. No tenderness or organomegaly. EXTREMITIES: She has hyperpigmentation in both lower legs along with stasis dermatitis. She has mild erythema with mild warmth over the distal right leg extending to the mid adan. No venous varicosities. No calf tenderness. NEUROLOGIC: Awake and appropriate. LABORATORY DATA: Blood cultures 1 of 2 sets, bacillus species, not anthrax. These were repeated yesterday. No growth so far. A superficial swab of the leg showed Peptostreptococcus. A urine culture with Proteus. White count consistently normal. Hemoglobin 12.1, platelets are 195. Differential shows minimal left shift. Chemistries with CO2 of 35, otherwise normal. Albumin 3.2. TSH high. Urinalysis, multiple abnormalities which are reviewed. RADIOLOGY: Venous Doppler was limited in diagnostic utility, but no DVT seen. Chest x-ray, atelectasis. ASSESSMENT: 1. Bacillus bacteremia, skin contaminant, not in need of further evaluation or treatment. 2. Peptostreptococcus on superficial swab, potential for contaminant, but this is also normal skin zuleima. In the absence of orthopedic infection, I do not think that the Peptostreptococcus is pathogenic here. 3. Asymptomatic b
[2020-02-19] MEDS: clonazePAM (*CRX) 0.5 MG TABLET 1 MG PO (20:28)
[2020-02-19] MEDS: MIRTAZAPINE SOLTAB 15 MG TAB.DISPER PO (20:28)
[2020-02-19] MEDS: traZODone HCL 50 MG TABLET 200 MG PO (20:29)
[2020-02-19] MEDS: rOPINIRole HCL 0.25 MG TABLET PO (20:29)
[2020-02-19] MEDS: DULoxetine HCL 30 MG CAPSULE.DR PO (20:29)
[2020-02-19] MEDS: PRAMIPEXOLE 0.25 MG TABLET PO (20:29)
[2020-02-20 01:40] VITALS: RESP 12
[2020-02-20] MEDS: LEVOTHYROXINE SODIUM 75 MCG TABLET PO (05:39)
[2020-02-20] MEDS: LEVOTHYROXINE SODIUM 100 MCG TABLET PO (05:39)
[2020-02-20 06:00] VITALS: BP 153/75; PULSE 61; RESP 20; TEMP 36.1; O2SAT 94
[2020-02-20] MEDS: POTASSIUM CHLORIDE 20 MEQ TABLET.ER 40 MEQ PO (09:25)
[2020-02-20] MEDS: PANTOPRAZOLE 40 MG TABLET PO (09:26)
[2020-02-20] MEDS: GABAPENTIN 100 MG CAPSULE PO (09:26)
[2020-02-20] MEDS: CHOLECALCIFEROL 1,000 UNITS TABLET 2000 UNITS PO (09:26)
[2020-02-20] MEDS: ATORVASTATIN 40 MG TABLET PO (09:26)
[2020-02-20] MEDS: DOXYCYCLINE HYCLATE 100 MG TABLET PO (09:26)
[2020-02-20] MEDS: VALSARTAN 160 MG TABLET 320 MG PO (09:26)
[2020-02-20] MEDS: MIRABEGRON 50 MG ER TABLET PO (09:26)
[2020-02-20 09:27] VITALS: PULSE 56
[2020-02-20] MEDS: METOPROLOL TARTRATE 25 MG TABLET PO (09:27)
[2020-02-20 09:29] VITALS: PULSE 56
[2020-02-20] MEDS: AMIODARONE HCL 200 MG TABLET 400 MG PO (09:29)
[2020-02-20] MEDS: TOLNAFTATE 1% POWDER 45 GM BTL 1 APPLIC TOPICAL (09:30)
--- NOTE | 2020-02-20 09:49 | PM.DS ---
DS: Admitting Diagnosis Admitting Diagnosis Admitting Diagnosis: Cellulitis right leg/urinary tract infection DS: Discharge Diagnosis Discharge Diagnosis (1) Cellulitis of right leg: Code(s): L03.115 - Cellulitis of right lower limb Status: Acute Assessment and Plan: Date of Admission: 02/16/20 Date of Discharge/DOS: 02/20/20 Ms. Rogel is a 79yo F With history of hypertension, hyperlipidemia, CHARLES on CPAP, hypothyroidism paroxysmal atrial fibrillation on long-term anticoagulation with Xarelto, and chronic abdominal wound following a surgery several years ago who presented to the ED for evaluation of right lower extremity redness, swelling, and pain. She was treated for right lower extremity cellulitis with 5 days of IV Rocephin and showed clinical improvement. One set of blood cultures was positive for bacillus species prompting Infectious Disease consultation. It was recommended this could have represented contamination and no further evaluation was recommended at this time. Repeat blood cultures show no growth to date. She was also noted to have asymptomatic bacteriuria with urine culture growing Proteus mirabilis. Patient declined taking her oral Lasix while in hospital despite multiple discussions and education. Overall, she is clinically improved and is hemodynamically stable for discharge on 02/20/2020 with instructions to follow-up with primary care provider in 1 week. Treated with 5 days IV Rocephin, discharged with oral cefdinir to complete the course per ID recommendations. Vancomycin started 02/17 for empiric coverage of blood cultures 02/15; 1 of 2 bcx positive growing Bacillus species. It is possible this could be contaminant. Repeat blood cultures from 02/17 are no growth to date. Evaluated by Infectious Disease, Dr. Cerda. (2) Urinary tract infection: Qualifiers: Hematuria presence: without hematuria Urinary tract infection type: acute cystitis Qualified Code(s): N30.00 - Acute cystitis without hematuria Code(s): N39.0 - Urinary tract infection, site not specified Status: Acute Assessment and Plan: Urine culture grew > 100,000 Proteus mirabilis. Patient was asymptomatic. Antibiotic coverage as above. (3) Chronic wound infection of abdomen: Qualifiers: Encounter type: subsequent encounter Qualified Code(s): S31.109D - Unspecified open wound of abdominal wall, unspecified quadrant without penetration into peritoneal cavity, subsequent encounter; L08.9 - Local infection of the skin and subcutaneous tissue, unspecified Code(s): S31.109A - Unspecified open wound of abdominal wall, unspecified quadrant without penetration into peritoneal cavity, initial encounter; L08.9 - Local infection of the skin and subcutaneous tissue, unspecified Status: Acute Assessment and Plan: Patient has had this wound for several years after an abdominal surgery. Seen by wound RN. Continue wound care. No evidence of acute infection. Not painful. (4) Essential hypertension: Code(s): I10 - Essential (primary) hypertension Status: Chronic Assessment and Plan: Blood pressures stable/high end of normal may be secondary to pain. Maintained on her home valsartan and metoprolol. (5) Hyperlipidemia: Qualifiers: Hyperlipidemia type: unspecified Qualified Code(s): E78.5 - Hyperlipidemia, unspecified Code(s): E78.5 - Hyperlipidemia, unspecified Status: Chronic Assessment and Plan: Continue home statin therapy. (6) Obstructive sleep apnea on CPAP: Code(s): G47.33 - Obstructive sleep apnea (adult) (pediatric); Z99.89 - Dependence on other enabling machines
[2020-02-20] MEDS: FERROUS GLUCONATE 324 MG TABLET PO (11:35)
[2020-02-20] MEDS: oxyCODONE/ACETAMINOPHEN (*CRX) 5-325 MG TABLET 1 TABLET PO (11:35)
== END 2020-02-20 12:41 | disposition home or self-care (01) | DRG 603 ==
LOC: ANHED 13:31 → ANH2MED 14:05
PROVIDERS: Emergency Medicine Emergency Medical Services; Physician Assistant; Admitting Provider Internal Medicine; Emergency Provider Emergency Medicine; Visit Provider Family Medicine
DX: L03.115 Cellulitis of right lower limb (principal); N39.0 Urinary tract infection, site not specified; I50.32 Chronic diastolic (congestive) heart failure; Z68.43 Body mass index [BMI] 50.0-59.9, adult; B96.4 Proteus (mirabilis) (morganii) as the cause of diseases classified elsewhere; I11.0 Hypertensive heart disease with heart failure; Z23 Encounter for immunization; E78.5 Hyperlipidemia, unspecified; G47.33 Obstructive sleep apnea (adult) (pediatric); I48.0 Paroxysmal atrial fibrillation; K21.9 Gastro-esophageal reflux disease without esophagitis; B96.89 Other specified bacterial agents as the cause of diseases classified elsewhere; H35.30 Unspecified macular degeneration; E66.01 Morbid (severe) obesity due to excess calories; G89.4 Chronic pain syndrome; D64.9 Anemia, unspecified; G25.81 Restless legs syndrome; N32.81 Overactive bladder; E89.0 Postprocedural hypothyroidism; F41.8 Other specified anxiety disorders; I87.8 Other specified disorders of veins; Z96.653 Presence of artificial knee joint, bilateral; S31.109D Unspecified open wound of abdominal wall, unspecified quadrant without penetration into peritoneal cavity, subsequent encounter; Z90.710 Acquired absence of both cervix and uterus; Z79.01 Long term (current) use of anticoagulants; Z85.850 Personal history of malignant neoplasm of thyroid
CPT/HCPCS: 36415; 71045; 80048; 80053; 80076; 81001; 83036; 83605; 83735; 84439; 84443; 84480; 85025; 85610; 85730; 86140; 87040; 87070; 87075; 87076; 87077; 87086; 87088; 87185; 87186; 87205; 90471; 90653; 93971; 96361; 96365; 96367; 97110; 97161; 97165; 97535; 99285; A9270; G0008; G0378; J0690; J0696; J3370; J7120

== ENCOUNTER 2020-04-10 19:59 | Inpatient (IN) | payer MEDICARE, SELFPAY ==
[2020-04-10] VITALS (10 sets, daily range): BP systolic 104–142; BP diastolic 56–69; PULSE 52–59; RESP 12–20; TEMP 36.7–37.2; O2SAT 94–96; BMI 48.5
--- NOTE | ~2020-04-10 | XR_ITS ---
EXAMINATION: XR chest 1V portable DATE: 04/10/2020 20:59 INDICATION: Shortness of breath. Chills. TECHNIQUE: A single frontal view of the chest was obtained. COMPARISON: Chest single view 02/16/2020, chest CT 12/05/2016 FINDINGS: There is chronic elevation of right hemidiaphragm. There are airspace opacities in the mid and lower lung zones. No pleural effusion or pneumothorax. Cardiomegaly is noted. There are surgical clips from thyroidectomy. IMPRESSION: 1. Airspace opacities in the mid and lower lung zones, consistent with pneumonia. 2. Cardiomegaly. Reviewed, dictated and finalized at location A. ISES TECHNICIAN IMPRESSION: 1. Airspace opacities in the mid and lower lung zones, consistent with pneumoni a. 2. Cardiomegaly.
--- NOTE | ~2020-04-10 | XR_ITS ---
EXAMINATION: XR abdomen obstructive series DATE: 04/13/2020 12:22 INDICATION: Diarrhea TECHNIQUE: Supine and upright views of the abdomen. FINDINGS: 01/01/2015 The visualized lung parenchyma is normal.. There is a nonobstructive bowel gas pattern. Gas and stool are seen throughout the colon to the level of the rectum. There is no free air. There is focal airs pace consolidation right midlung zone. There are surgical changes overlying the abdomen. There are pe dicle screws overlying the lumbosacral junction. IMPRESSION: 1. No acute abdominal abnormality. 2: Focal consolidation right midlung zone, atelectasis versus pneumonia. Reviewed, dictated and finalized at location B. WORKER APPRENTICE SHOP
--- NOTE | ~2020-04-10 | XR_ITS ---
EXAMINATION: XR chest 1V portable EXAM DATE: 04/12/2020 06:18 INDICATION: Bilateral pneumonia, COVID patient under investigation. TECHNIQUE: Portable AP frontal chest x-ray was obtained. Comparison is made to prior examination from 04/10/2020. FINDINGS: Moderate amount of scattered bilateral acute airspace disease most consistent with infectio n. Small amount of atelectasis. Edema also possible. No pneumothorax or pleural effusion. Mild cardio megaly. There is aortic arteriosclerosis. There are bony degenerative changes. IMPRESSION: 1. Moderate amount of bilateral acute airspace disease most consistent with infection. Reviewed, dictated and finalized at location A. ER BULLET SECTION SUPERVISOR IMPRESSION: 1. Moderate amount of bilateral acute airspace disease most consistent with in fection.
--- NOTE | 2020-04-10 20:27 | ECG_ITS ---
Measurements Intervals Embarrass Rate: 56 P: 87 DC: 179 QRS: 146 QRSD: 93 T: 150 QT: 451 QTc: 438 Interpretive Statements SINUS BRADYCARDIA LIMB LEAD REVERSAL EARLY PRECORDIAL R/S TRANSITION BASELINE ARTIFACT- III, V4-V6 BORDERLINE ECG Electronically Signed On 04-11-2020 7:18:01 GANG DRILL PRESS OPERATOR by Saji Lyons D.O.
--- NOTE | 2020-04-10 20:31 | ED.GENADULT ---
HPI - General Adult General Chief complaint: Shortness of Breath/Dyspnea Stated complaint: weakness/ cough Time Seen by Provider: 04/10/20 20:19 History of Present Illness HPI narrative: Patient is a 79-year-old female who presents the emergency department with chief complaint of weakness and shortness of breath. The patient reports that she has history of congestive heart failure reports that she has had some dyspnea on exertion and reports that she has had a cough. Patient reports that she has some rhonchi whenever she breathes she denies fever denies chills denies increased peripheral edema. Related Data Home Medications Medication Instructions Recorded Confirmed Myrbetriq 50 mg PO DAILY 02/16/20 02/16/20 PreserVision AREDS-2 1 tablet PO BID 02/16/20 02/16/20 Xarelto 20 mg PO DAILY 02/16/20 02/17/20 amiodarone 400 mg PO DAILY 02/16/20 02/16/20 atorvastatin 40 mg PO DAILY 02/16/20 02/16/20 biotin 10,000 mcg PO DAILY 02/16/20 02/16/20 bupropion HCl 150 mg PO BID 02/16/20 02/16/20 calcium carbonate-vitamin D3 1 cap PO DAILY 02/16/20 02/16/20 [Calcium 600 with Vitamin D3] cholecalciferol (vitamin D3) 50 mcg PO DAILY 02/16/20 02/16/20 [Vitamin D3] clonazepam 1 mg PO DAILY PRN 02/16/20 02/16/20 doxycycline hyclate 100 mg PO BID 02/16/20 02/16/20 duloxetine 30 mg PO HS 02/16/20 02/16/20 esomeprazole magnesium 40 mg PO DAILY 02/16/20 02/16/20 ferrous gluconate 236 mg PO DAILY 02/16/20 02/16/20 furosemide 80 mg PO DAILY 02/16/20 02/16/20 gabapentin 100 mg PO BID 02/16/20 02/16/20 metoprolol tartrate 25 mg PO BID 02/16/20 02/16/20 mirtazapine 15 mg PO HS 02/16/20 02/16/20 oxycodone-acetaminophen 1 tablet PO Q6H PRN 02/16/20 02/16/20 potassium chloride 40 meq PO DAILY 02/16/20 02/16/20 pramipexole 0.25 mg PO HS 02/16/20 02/16/20 ropinirole 0.25 mg PO HS 02/16/20 02/16/20 trazodone 200 mg PO HS 02/16/20 02/16/20 trospium 20 mg PO DAILY 02/16/20 02/16/20 valsartan 320 mg PO DAILY 02/16/20 02/16/20 levothyroxine 175 mcg PO DAILY 02/17/20 02/17/20 Allergies Allergy/AdvReac Type Severity Reaction Status Date / Time Sulfa (Sulfonamide Allergy Unknown Verified 01/04/17 15:09 Antibiotics) Review of Systems Review of Systems: Narrative: CONSTITUTIONAL: Denies fever, chills, or sweats. EYES: Denies visual changes, redness, or discharge. ENT: Denies rhinorrhea, congestion, sore throat, or otalgia. CARDIOVASCULAR: Denies chest pain, palpitations, or edema. RESPIRATORY: Denies cough or dyspnea. GASTROINTESTINAL: Denies abdominal pain, nausea, vomiting, or diarrhea. GENITOURINARY: Denies dysuria or hematuria. SKIN: Denies rash or itching. MUSCULOSKELETAL: Denies back pain, joint pain, or myalgia. NEUROLOGIC: Denies headache, numbness, or weakness. PSYCHIATRIC: Denies anxiety or depression. A 10 system review of systems was completed on the patient and is negative except for what is stated in the HPI. Nursing and ancillary documentation was reviewed. [facility] Past Medical History Medical History Anemia Anxiety Chronic diastolic congestive heart failure Echocardiogram in October 2018 demonstrated hyperdynamic left ventricular function with an ejection fraction of 71%, moderate left atrial enlargement, and grade 2 diastolic dysfunction. Chronic pain syndrome Chronic wound infection of abdomen On long-term doxycycline b.i.d. 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 Depression Essential hypertension Gastroesophageal reflux disease Hyperlipidemia Macular degeneration Morbid obesity Obstructive sleep apnea on CPAP Overactive bladder Paroxysmal atrial fibrillation On Xarelto for stroke prophylaxis. Postsurgical hypothyroidism Restless leg syndrome Shingles Thyroid cancer Status post thyroidectomy. Surgical History Surgical History H/
[2020-04-10 21:03] LABS: Basophils Percent Auto 0.5 % (0.2-1.2); Eosinophils Percent Auto 0.2 % (0-4.4); Hematocrit 34.2 % (37.0-47.0); Hemoglobin 11.4 g/dL (12.0-15.0); Immature Granulocyte Absolute 0.04 K/mm3 (0.00-0.031); Immature Granulocyte Percent A 0.9 % (0-0.5); Immature Platelet Fraction Pct 2.3 % (0.9-11.2); Lymphocytes Absolute Auto 0.43 K/mm3 (0.9-3.2); Lymphocytes Percent Auto 9.9 % (18.3-44.2); Mean Corpuscular HGB Conc 33.3 g/dl (32-36); Mean Corpuscular Hemoglobin 33.7 pg (26-34); Mean Corpuscular Volume 101.2 fl (80-100); Mean Platelet Volume 9.8 fl (7.4-10.4); Monocytes Absolute Auto 0.4 K/mm3 (0.1-0.6); Neutrophils Absolute Auto 3.5 K/mm3 (1.3-6.7); Neutrophils Percent Auto 79.5 % (45.5-73.1); Platelet Count Result 160 k/mm3 (150-375); Red Blood Count 3.38 M/mm3 (4.2-5.4); Red Cell Distribution Width 13.9 % (11.5-14.5); White Blood Count 4.3 K/mm3 (4.5-10.0)
[2020-04-10 21:06] LABS: Add Urine Microscopic? YES; Appearance Urine Clear (Clear); Bilirubin Urine Negative (Negative); Blood Urine Negative (Negative); Color Urine Yellow (Yellow); Glucose Urine UA Negative (Negative); Ketones Urine Negative (Negative); Leukocyte Esterase Ur Negative LEU/UL (Negative); Mucus Urine Rare /lpf; Nitrate Urine Negative (Negative); Protein Urine 1+ mg/dL (Negative); RBC Urine 0-2 /hpf (0-2); Specific Grav Ur 1.025 (1.001-1.035); Squamous Epithelial Cell Urine Rare /hpf (Few); Urobilinogen Urine Negative mg/dL (<2.0); WBC Urine 0-3 /hpf
[2020-04-10 21:12] LABS: INR 1.3
[2020-04-10 21:13] LABS: Partial Thromboplastin Time 46.6 SECONDS (22.3-36.8)
[2020-04-10 21:14] LABS: Alanine Aminotransferase 27 U/L (4-35); Albumin Level 3.2 g/dL (3.5-5.1); Alkaline Phosphatase 115 U/L (38-126); Anion Gap 4 mmol/L (8-16); Aspartate Amino Transferase 48 U/L (14-36); Bilirubin,Total 0.3 mg/dL (0.2-1.3); Blood Urea Nitrogen 20 mg/dL (7-17); Calcium 8.5 mg/dL (8.4-10.2); Carbon Dioxide 34 mmol/L (22-30); Chloride 95 mmol/L (98-107); Estimated CRCL calculation 47 ml/min; Estimated Glomerular Filt Rate 54; Glucose 114 mg/dL (65-105); Magnesium 1.9 mg/dL (1.6-2.3); Potassium 4.3 mmol/L (3.4-5.0); Sodium 133 mmol/L (137-145)
[2020-04-10 21:25] LABS: NT Pro B Type Natriuretic Pept 123 PG/ML (5-100); Troponin I < 0.012 ng/mL (0.000-0.034)
--- NOTE | 2020-04-10 22:10 | PM.IMHP ---
H&P: HPI History of Present Illness Date/Time: 04/10/20 22:10 Chief complaint: Pneumonia Narrative: Michelle Rogel is a 79 year old female with PMHx significant for CHF, A.fib on anticoagulation, Restless leg syndrome, Chronic non healing abdominal wound, presented to ED due to sob, productive cough of scanty sputum, , fevers, chills,for the last ten days or so but worse in the last two days, she has chronic B/L LE swelling, no n/v/abdominal pain, had similar symptoms but is doing better. Upon presentation to ED she was found to have low saturation into the 80's. Preliminary work up is significant for R lung base infiltrate. Review of Systems Review of Systems: Narrative: Worsening sob, productive cough. Constitutional: Comments: fevers, chills. Eyes: Comments: no vision changes. ENT: Comments: no ear ache, no throat pain, no nasal congestion. Cardiovascular: Comments: no pnd, no orthopnea. Respiratory: Comments: productive cough Gastrointestinal: Comments: no n/v/abdominal pain Musculoskeletal: Comments: B/L LE chronic skin changes and discoloration. Integumentary/Breasts: Comments: Abdominal wound. Neurologic: Comments: no sensory motor deficit. Hematologic/Lymphatic: Comments: no LAP PMFSH Past Medical History Medical History Anemia Anxiety Chronic diastolic congestive heart failure Echocardiogram in October 2018 demonstrated hyperdynamic left ventricular function with an ejection fraction of 71%, moderate left atrial enlargement, and grade 2 diastolic dysfunction. Chronic pain syndrome Chronic wound infection of abdomen On long-term doxycycline b.i.d. Current use of shelter anticoagulation On Xarelto for stroke prophylaxis given paroxysmal atrial fibrillation. Depression Essential hypertension Gastroesophageal reflux disease Hyperlipidemia Macular degeneration Morbid obesity Obstructive sleep apnea on CPAP Overactive bladder Paroxysmal atrial fibrillation On Xarelto for stroke prophylaxis. Postsurgical hypothyroidism Restless leg syndrome Shingles Thyroid cancer Status post thyroidectomy. Surgical History Surgical History H/O bilateral cataract extraction History of appendectomy (~2003) Complicated postoperative course with chronic midline abdominal wound. History of hernia repair History of orthopedic surgery ORIF right lower extremity fracture. History of ovarian cystectomy History of spinal surgery History of thyroidectomy History of total abdominal hysterectomy History of total bilateral knee replacement Family History Family History Mother Alzheimer's dementia Hypertension Father Acute myocardial infarction Sibling Hypertension Other Family history of arthritis Family history of cardiovascular disease Social History Social History Social History: Surrogate decision maker: Prince Rogel, . Code status: Full code. Smoking status: Never smoker Alcohol intake: current Substance use: never Additional living arrangements comments: Lives in [place] with her . They have 3 children. Ambulates with a walker. Spiritual care concerns: No Meds Home Medications and Allergies Home Medications Medication Instructions Recorded Confirmed Type Myrbetriq 50 mg PO DAILY 02/16/20 02/16/20 History PreserVision AREDS-2 1 tablet PO BID 02/16/20 02/16/20 History Xarelto 20 mg PO DAILY 02/16/20 02/17/20 History amiodarone 400 mg PO DAILY 02/16/20 02/16/20 History atorvastatin 40 mg PO DAILY 02/16/20 02/16/20 History biotin 10,000 mcg PO DAILY 02/16/20 02/16/20 History bupropion HCl 150 mg PO BID 02/16/20 02/16/20 History calcium carbonate-vitamin D3 1 cap PO DAILY 02/16/20 02/16/20 History [Calcium 60
--- NOTE | 2020-04-10 23:10 | ADMGEN ---
This patient, Michelle Rogel, was admitted to [facility] Surg Room 327-01. Patient/family oriented to hospital policies and general routines including ID bracelet, bed and alarms, visiting hours, pain management, procedures, bathroom and other care routines, personal items, smoking policy, room service/diet, and visiting hours. Information on how to activate the Rapid Response Team has been discussed. Patient/Family are encouraged to report perceived risks to care and to ask questions if they do not understand what they are told or what they should do.
[2020-04-11] VITALS (13 sets, daily range): BP systolic 138–187; BP diastolic 64–110; PULSE 54–74; RESP 16–22; TEMP 36.6–38.6; O2SAT 90–96
--- NOTE | 2020-04-11 00:35 | PC.NURSE ---
Relocated to room 311 per hospital bed. Belongings sent.
--- NOTE | 2020-04-11 01:15 | PC.NURSE ---
Attempted to reach Prince Rogel, spouse, to verify home CPAP settings by telephone without success.
--- NOTE | 2020-04-11 01:24 | PC.NURSE ---
Return call received from Prince Rogel, spouse. Home medications reviewed and CPAP settings received.
--- NOTE | 2020-04-11 06:55 | PC.NURSE ---
Call made to Prince Rogel, spouse, regarding home Bipap unit. Spouse stated he will bring Bipap today.
[2020-04-11] MEDS: ENOXAPARIN 40 MG/0.4 ML SYRINGE SUB-Q (09:53)
--- NOTE | 2020-04-11 15:46 | PM.IMPN ---
Progress Note: A&P Assessment and Plan (1) Community acquired pneumonia: Qualifiers: Laterality: unspecified laterality Qualified Code(s): J18.9 - Pneumonia, unspecified organism Code(s): J18.9 - Pneumonia, unspecified organism Status: Acute Assessment and Plan: Admit to med surg on baseline O2 NC home use level Vitals as per unit protocol Rocephin and Zithromax started on Duoneb/albuterol neb treatments ordered incentive spirometer PT/OT sputum culture rule out COVID, test results pending CXR continue home BiPap use (2) Chronic wound infection of abdomen: Qualifiers: Encounter type: subsequent encounter Qualified Code(s): S31.109D - Unspecified open wound of abdominal wall, unspecified quadrant without penetration into peritoneal cavity, subsequent encounter; L08.9 - Local infection of the skin and subcutaneous tissue, unspecified Code(s): S31.109A - Unspecified open wound of abdominal wall, unspecified quadrant without penetration into peritoneal cavity, initial encounter; L08.9 - Local infection of the skin and subcutaneous tissue, unspecified Status: Acute Assessment and Plan: Wound care ordered patient on IV Azithro at this time, holding her Home Doxycycline 100mg BID doses - 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 collect wound culture as needed for drainage Wound RN consultation placed. blood cultures pending WBC 4.3 , no fevers /chills noted. (3) Obstructive sleep apnea on CPAP: Code(s): G47.33 - Obstructive sleep apnea (adult) (pediatric); Z99.89 - Dependence on other enabling machines and devices Status: Chronic Assessment and Plan: Continue CPAP on home O2 as well with respiratory risk higher at this time, reduced Trazodone dose from 200mg to 100mg. (4) Essential hypertension: Code(s): I10 - Essential (primary) hypertension Status: Chronic Assessment and Plan: Stable Continue home meds: patient states that she only take 40 lasix and 40 KCL daily. Restarted. BP 141/64 continued Valsartan. Continue cardiac telemetry monitoring. ordered orthostatic BPs. (5) Paroxysmal atrial fibrillation: Code(s): I48.0 - Paroxysmal atrial fibrillation Status: Chronic Assessment and Plan: Stable Rate controlled at this time HR 50s. restart Amiodarone when appropriate, may need lower dosage now. started Metoprolol with HR parameters. Anticoagulated with oral Xarelto - continued home dose, stopped the Loxenox . Subjective Date/time seen: 04/11/20 15:47 SARS-CoV-2 test taken last night around 10:00 p.m. remains pending at this time. While the patient states that she is feeling better, she states that she is feeling anxious. She does not appear to be agitated or concerns at this time. But she has been without her home medications which include anti anxiety and anti depression medicines, so they are restarted at this time. She continues to have shortness of breath, despite being on 2 L of oxygen. She was on 2 L of oxygen at home per nasal cannula prior to her admission. Will titrate her oxygen is needed. Review of Systems Review of Systems: All systems reviewed & are unremarkable except as noted in HPI and below Constitutional: Constitutional: Reports as per HPI, Denies excessive sweating, Denies headache(s), Denies increased appetite, Denies snoring and Denies weight gain Eyes: Eyes: Reports as per HPI, Denies exophthalmos, Denies diplopia, Denies floaters and Denies loss of peripheral vision ENT: Reports as per HPI, Denies facial pain, Denies headache(s), Denies odynophagia and Denies tinnitus Cardiovascular: Cardiovascular: Reports as per HPI, Denies chest pain, Denies chest pain at rest, Denies chest pain with activity and Reports leg edema (venous insufficiency discoloration noted) Respiratory: Respiratory: Reports as per HPI, Reports chest congestion, Reports cough, Reports dyspnea, Reports dyspnea o
[2020-04-11] MEDS: clonazePAM (*CRX) 0.5 MG TABLET 1 MG PO (16:08)
[2020-04-11] MEDS: GABAPENTIN 100 MG CAPSULE PO (16:08)
[2020-04-11] MEDS: DOXYCYCLINE HYCLATE 100 MG TABLET PO (16:09)
[2020-04-11] MEDS: ALBUTEROL SULFATE NEB 2.5 MG/0.5 ML INH INHALATION (18:00)
[2020-04-11] MEDS: IPRATROPIUM BR 0.02% INH SOLN 0.5 MG/2.5 ML VIAL INHALATION (18:00)
[2020-04-11 20:45] LABS: SARS-CoV-2 RNA PCR Positive
[2020-04-11] MEDS: DULoxetine HCL 30 MG CAPSULE.DR PO (20:46)
[2020-04-11] MEDS: OPTI-GEN TAB 1 TABLET PO (20:46)
[2020-04-11] MEDS: MIRTAZAPINE SOLTAB 15 MG TAB.DISPER PO (20:46)
[2020-04-11] MEDS: rOPINIRole HCL 0.25 MG TABLET PO (20:46)
[2020-04-11] MEDS: guaiFENesin 12 HR 600 MG TABCR 1200 MG PO (20:47)
[2020-04-11] MEDS: METOPROLOL TARTRATE 25 MG TABLET PO (20:48)
[2020-04-11] MEDS: PRAMIPEXOLE 0.25 MG TABLET PO (20:48)
[2020-04-11] MEDS: TOLNAFTATE 1% POWDER 45 GM BTL 1 APPLIC TOPICAL (20:52)
[2020-04-11] MEDS: ACETAMINOPHEN 325 MG TABLET 650 MG PO (20:52)
[2020-04-12] VITALS (17 sets, daily range): BP systolic 126–157; BP diastolic 46–71; PULSE 54–66; RESP 16–24; TEMP 36.2–38.2; O2SAT 90–92
[2020-04-12] MEDS: ACETAMINOPHEN 325 MG TABLET 650 MG PO (01:21)
[2020-04-12] MEDS: ALBUTEROL SULFATE NEB 2.5 MG/0.5 ML INH INHALATION ×3 (03:05→20:56)
[2020-04-12] MEDS: IPRATROPIUM BR 0.02% INH SOLN 0.5 MG/2.5 ML VIAL INHALATION ×3 (03:05→20:56)
[2020-04-12] MEDS: LEVOTHYROXINE SODIUM 75 MCG TABLET PO (06:35)
[2020-04-12] MEDS: LEVOTHYROXINE SODIUM 100 MCG TABLET PO (06:35)
[2020-04-12 06:38] LABS: Hematocrit 33.7 % (37.0-47.0); Hemoglobin 11.1 g/dL (12.0-15.0); Immature Platelet Fraction Pct 2.7 % (0.9-11.2); Mean Corpuscular HGB Conc 32.9 g/dl (32-36); Mean Corpuscular Hemoglobin 33.4 pg (26-34); Mean Corpuscular Volume 101.5 fl (80-100); Mean Platelet Volume 9.9 fl (7.4-10.4); Platelet Count Result 152 k/mm3 (150-375); Red Blood Count 3.32 M/mm3 (4.2-5.4); Red Cell Distribution Width 13.8 % (11.5-14.5); White Blood Count 4.2 K/mm3 (4.5-10.0)
[2020-04-12 07:54] LABS: Alanine Aminotransferase 27 U/L (4-35); Albumin Level 3.1 g/dL (3.5-5.1); Alkaline Phosphatase 94 U/L (38-126); Anion Gap 3 mmol/L (8-16); Aspartate Amino Transferase 52 U/L (14-36); Bilirubin,Total 0.4 mg/dL (0.2-1.3); Blood Urea Nitrogen 14 mg/dL (7-17); CRP > 9.0 mg/dL (<1.0); Calcium 7.9 mg/dL (8.4-10.2); Carbon Dioxide 34 mmol/L (22-30); Chloride 95 mmol/L (98-107); Estimated CRCL calculation 66 ml/min; Estimated Glomerular Filt Rate > 60; Glucose 100 mg/dL (65-105); Lactate Dehydrogenase 593 U/L (313-618); Potassium 3.4 mmol/L (3.4-5.0); Sodium 132 mmol/L (137-145)
[2020-04-12] MEDS: ALBUTEROL SULFATE (*SP) AEROSOL 1 PUFF 2 PUFF INHALATION (08:49)
[2020-04-12] MEDS: PANTOPRAZOLE 40 MG TABLET PO (09:13)
[2020-04-12] MEDS: DOXYCYCLINE HYCLATE 100 MG TABLET PO ×2 (09:13→18:12)
[2020-04-12] MEDS: MIRABEGRON 50 MG ER TABLET PO (09:13)
[2020-04-12] MEDS: traZODone HCL 50 MG TABLET 100 MG PO ×2 (09:13→22:52)
[2020-04-12] MEDS: ATORVASTATIN 40 MG TABLET PO (09:14)
[2020-04-12] MEDS: GABAPENTIN 100 MG CAPSULE PO ×2 (09:14→18:12)
[2020-04-12] MEDS: METOPROLOL TARTRATE 25 MG TABLET PO ×2 (09:14→21:20)
[2020-04-12] MEDS: FUROSEMIDE 40 MG TABLET PO (09:14)
[2020-04-12] MEDS: POTASSIUM CHLORIDE 20 MEQ TABLET.ER 40 MEQ PO (09:14)
[2020-04-12] MEDS: guaiFENesin 12 HR 600 MG TABCR 1200 MG PO ×2 (09:14→21:23)
[2020-04-12] MEDS: CHOLECALCIFEROL 1,000 UNITS TABLET 2000 UNITS PO (09:15)
[2020-04-12] MEDS: VALSARTAN 160 MG TABLET 320 MG PO (09:15)
[2020-04-12] MEDS: DEXAMETHASONE 2 MG TABLET 6 MG PO (09:16)
[2020-04-12] MEDS: AMIODARONE HCL 200 MG TABLET 400 MG BY MOUTH (09:22)
[2020-04-12] MEDS: REMDESIVIR 200 MG/NS 250 ML 200 MG/250 ML BAG 250 MG IVPB (12:35)
[2020-04-12] MEDS: OPTI-GEN TAB 1 TABLET PO ×2 (12:36→21:19)
[2020-04-12] MEDS: TOLNAFTATE 1% POWDER 45 GM BTL 1 APPLIC TOPICAL (12:37)
--- NOTE | 2020-04-12 13:03 | PM.IMPN ---
Progress Note: A&P Assessment and Plan (1) Pneumonia due to COVID-19 virus: Code(s): U07.1 - COVID-19; J12.89 - Other viral pneumonia <Gautam Knight PA-C - Last Filed: 04/12/20 13:24> Status: Acute <KASANDRA Elmore Last Filed: 04/12/20 13:24> Assessment and Plan: COVID testing positive. Originally placed on IV rocephin and azithromycin upon admission. Continues on remdesivir and decadron therapy. Patient reports feeling better today. On 2L O2 NC Continue Remdesivir (2/5) Continue Decadron (day 2) Will discontinue Rocephin and azithromycin as bacterial coinfection less likely Continue supportive care with IS, Tylenol for fevers, Mucinex, albuterol PRN, sched neb treatments if available on med/surg floor Monitor Labs Wean O2 as tolerated; see below <Gautam Knight PA-C - Last Filed: 04/12/20 13:24> (2) Acute respiratory failure due to COVID-19: Code(s): U07.1 - COVID-19; J96.00 - Acute respiratory failure, unspecified whether with hypoxia or hypercapnia <Gautam Knight PA-C - Last Filed: 04/12/20 13:24> Status: Acute <KASANDRA Elmore Last Filed: 04/12/20 13:24> Assessment and Plan: Patient states she placed herself on oxygen about 6 months ago but cannot give me a definitive diagnosis as to why she uses this. She has history of diastolic CHF. Last hospital stay in February she was weaned to RA upon discharge. At this point, will assume patient does not have baseline O2 needs and this is likely due to COVID pneumonia. Supplemental O2; wean as tolerated Will likely do home O2 eval prior to discharge Will need f/u with PCP <KASANDRA Elmore Last Filed: 04/12/20 13:24> (3) Chronic wound infection of abdomen: Qualifiers: Encounter type: subsequent encounter Qualified Code(s): S31.109D - Unspecified open wound of abdominal wall, unspecified quadrant without penetration into peritoneal cavity, subsequent encounter; L08.9 - Local infection of the skin and subcutaneous tissue, unspecified <Gautam Knight PA-C - Last Filed: 04/12/20 13:24> Code(s): S31.109A - Unspecified open wound of abdominal wall, unspecified quadrant without penetration into peritoneal cavity, initial encounter; L08.9 - Local infection of the skin and subcutaneous tissue, unspecified <Gautam Knight PA-C - Last Filed: 04/12/20 13:24> Status: Acute <Gautam Knight PA-C - Last Filed: 04/12/20 13:24> Assessment and Plan: Appears to have no acute issues. Wound care ordered although does not appear to have open wound on abdomen or signs of surrounding skin infection Will resume home chronic doxycycline BCx NGTD x 2 <Gautam Knight PA-C - Last Filed: 04/12/20 13:24> (4) Obstructive sleep apnea on CPAP: Code(s): G47.33 - Obstructive sleep apnea (adult) (pediatric); Z99.89 - Dependence on other enabling machines and devices <Gautam Knight PA-C - Last Filed: 04/12/20 13:24> Status: Chronic <KASANDRA Elmore Last Filed: 04/12/20 13:24> Assessment and Plan: I am reluctant to do BiPAP given COVID pneumonia and aerosolizing properties. Will place on hold. Trazodone weaned to 100 mg as needed QHS <KASANDRA Elmore Last Filed: 04/12/20 13:24> (5) Essential hypertension: Code(s): I10 - Essential (primary) hypertension <Gautam Knight PA-C - Last Filed: 04/12/20 13:24> Status: Chronic <Gautam Knight PA-C - Last Filed: 04/12/20 13:24> Assessment and Plan: BP 150s sys Continue home antihypertensives - states she only takes 40 lasix which has been corrected Monitor <Gautam Knight PA-C - Last Filed: 04/12/20 13:24> (6) Paroxysmal atrial fibrillation:
[2020-04-12] MEDS: RIVAROXABAN 20 MG TABLET PO (14:30)
[2020-04-12] MEDS: SACCHAROMYCES BOULARDII 250 MG CAPSULE PO ×2 (14:30→18:12)
[2020-04-12] MEDS: rOPINIRole HCL 0.25 MG TABLET PO (21:19)
[2020-04-12] MEDS: DULoxetine HCL 30 MG CAPSULE.DR PO (21:19)
[2020-04-12] MEDS: MIRTAZAPINE SOLTAB 15 MG TAB.DISPER PO (21:20)
[2020-04-12] MEDS: PRAMIPEXOLE 0.25 MG TABLET PO (21:24)
[2020-04-13] VITALS (17 sets, daily range): BP systolic 133–158; BP diastolic 59–94; PULSE 54–70; RESP 18–20; TEMP 36.1–36.8; O2SAT 90–94
[2020-04-13] MEDS: MELATONIN 5 MG TABLET PO ×2 (00:49→22:03)
[2020-04-13] MEDS: ONDANSETRON INJ 4 MG/2 ML VIAL IV PUSH (01:07)
[2020-04-13] MEDS: ALBUTEROL SULFATE NEB 2.5 MG/0.5 ML INH INHALATION ×4 (01:56→20:15)
[2020-04-13] MEDS: IPRATROPIUM BR 0.02% INH SOLN 0.5 MG/2.5 ML VIAL INHALATION ×4 (01:56→20:15)
[2020-04-13] MEDS: LEVOTHYROXINE SODIUM 75 MCG TABLET PO (08:31)
[2020-04-13] MEDS: CHOLECALCIFEROL 1,000 UNITS TABLET 2000 UNITS PO (08:32)
[2020-04-13] MEDS: POTASSIUM CHLORIDE 20 MEQ TABLET.ER 40 MEQ PO (08:32)
[2020-04-13] MEDS: guaiFENesin 12 HR 600 MG TABCR 1200 MG PO ×2 (08:32→22:03)
[2020-04-13] MEDS: LEVOTHYROXINE SODIUM 100 MCG TABLET PO (08:32)
[2020-04-13] MEDS: METOPROLOL TARTRATE 25 MG TABLET PO ×2 (08:32→22:03)
[2020-04-13] MEDS: AMIODARONE HCL 200 MG TABLET 400 MG BY MOUTH (08:32)
[2020-04-13] MEDS: VALSARTAN 160 MG TABLET 320 MG PO (08:32)
[2020-04-13] MEDS: DOXYCYCLINE HYCLATE 100 MG TABLET PO ×2 (08:33→16:20)
[2020-04-13] MEDS: MIRABEGRON 50 MG ER TABLET PO (08:33)
[2020-04-13] MEDS: PANTOPRAZOLE 40 MG TABLET PO (08:33)
[2020-04-13] MEDS: GABAPENTIN 100 MG CAPSULE PO ×2 (08:33→16:20)
[2020-04-13] MEDS: FUROSEMIDE 40 MG TABLET PO (08:33)
[2020-04-13] MEDS: ATORVASTATIN 40 MG TABLET PO (08:33)
[2020-04-13] MEDS: DEXAMETHASONE 2 MG TABLET 6 MG PO (08:34)
[2020-04-13] MEDS: RIVAROXABAN 20 MG TABLET PO (08:34)
[2020-04-13 09:57] LABS: Hematocrit 38.7 % (37.0-47.0); Hemoglobin 12.7 g/dL (12.0-15.0); Immature Granulocyte Absolute 0.06 K/mm3 (0.00-0.031); Immature Granulocyte Percent A 0.9 % (0-0.5); Lymphocytes Absolute Auto 0.44 K/mm3 (0.9-3.2); Lymphocytes Percent Auto 6.6 % (18.3-44.2); Mean Corpuscular HGB Conc 32.8 g/dl (32-36); Mean Corpuscular Hemoglobin 32.8 pg (26-34); Mean Platelet Volume 9.6 fl (7.4-10.4); Monocytes Absolute Auto 0.6 K/mm3 (0.1-0.6); Monocytes Percent Auto 8.7 % (2.6-8.5); Neutrophils Absolute Auto 5.6 K/mm3 (1.3-6.7); Neutrophils Percent Auto 83.8 % (45.5-73.1); Platelet Count Result 175 k/mm3 (150-375); Red Blood Count 3.87 M/mm3 (4.2-5.4); Red Cell Distribution Width 13.5 % (11.5-14.5); White Blood Count 6.7 K/mm3 (4.5-10.0)
[2020-04-13 10:11] LABS: Alanine Aminotransferase 35 U/L (4-35); Albumin Level 3.6 g/dL (3.5-5.1); Alkaline Phosphatase 111 U/L (38-126); Anion Gap 4 mmol/L (8-16); Aspartate Amino Transferase 69 U/L (14-36); Bilirubin,Total 0.4 mg/dL (0.2-1.3); Blood Urea Nitrogen 16 mg/dL (7-17); Calcium 8.3 mg/dL (8.4-10.2); Carbon Dioxide 38 mmol/L (22-30); Chloride 91 mmol/L (98-107); Estimated CRCL calculation 59 ml/min; Estimated Glomerular Filt Rate > 60; Glucose 104 mg/dL (65-105); Magnesium 1.9 mg/dL (1.6-2.3); Potassium 3.3 mmol/L (3.4-5.0); Sodium 133 mmol/L (137-145)
[2020-04-13 10:12] LABS: Alanine Aminotransferase 34 U/L (4-35); Estimated CRCL calculation 66 ml/min; Estimated Glomerular Filt Rate > 60
[2020-04-13] MEDS: SACCHAROMYCES BOULARDII 250 MG CAPSULE PO ×3 (11:41→16:20)
[2020-04-13] MEDS: REMDESIVIR 100 MG/NS 250 ML 100 MG/250 ML BAG 250 MG IVPB (11:42)
[2020-04-13] MEDS: OPTI-GEN TAB 1 TABLET PO ×2 (13:45→22:04)
[2020-04-13] MEDS: LOPERAMIDE HCL 2 MG CAPSULE PO ×2 (16:20→22:04)
--- NOTE | 2020-04-13 17:09 | PM.IMPN ---
Progress Note: A&P Assessment and Plan (1) Pneumonia due to COVID-19 virus: Code(s): U07.1 - COVID-19; J12.89 - Other viral pneumonia Status: Acute Assessment and Plan: COVID testing positive. Originally placed on IV rocephin and azithromycin upon admission; this has been discontinued. Continues on remdesivir and decadron therapy. Patient reports feeling better today. On 2L O2 NC Continue Remdesivir (3/5) Continue Decadron (day 3) Continue supportive care with IS, Tylenol for fevers, Mucinex, albuterol PRN, sched neb treatments if available on med/surg floor Monitor Labs Wean O2 as tolerated; see below (2) Acute respiratory failure due to COVID-19: Code(s): U07.1 - COVID-19; J96.00 - Acute respiratory failure, unspecified whether with hypoxia or hypercapnia Status: Acute Assessment and Plan: Patient states she was placed on oxygen about 6 months ago by her Tower Attendant; unable to tell me why but notes because she was short of breath. Intermittently uses this the past 6 months. She has history of diastolic CHF. Last hospital stay in February she was weaned to RA upon discharge. At this point, will assume patient does not have baseline O2 needs and this is likely due to COVID pneumonia. Supplemental O2; wean as tolerated Will likely do home O2 eval prior to discharge Will need f/u with PCP (3) Chronic wound infection of abdomen: Qualifiers: Encounter type: subsequent encounter Qualified Code(s): S31.109D - Unspecified open wound of abdominal wall, unspecified quadrant without penetration into peritoneal cavity, subsequent encounter; L08.9 - Local infection of the skin and subcutaneous tissue, unspecified Code(s): S31.109A - Unspecified open wound of abdominal wall, unspecified quadrant without penetration into peritoneal cavity, initial encounter; L08.9 - Local infection of the skin and subcutaneous tissue, unspecified Status: Acute Assessment and Plan: Appears to have no acute issues. Wound care following Will continue home chronic doxycycline BCx NGTD x 2 (4) Obstructive sleep apnea on CPAP: Code(s): G47.33 - Obstructive sleep apnea (adult) (pediatric); Z99.89 - Dependence on other enabling machines and devices Status: Chronic Assessment and Plan: I am reluctant to do BiPAP given COVID pneumonia and aerosolizing properties. Will place on hold. Trazodone weaned to 100 mg as needed QHS (5) Essential hypertension: Code(s): I10 - Essential (primary) hypertension Status: Chronic Assessment and Plan: BP 140s sys Continue home antihypertensives - states she only takes 40 lasix which has been corrected Monitor (6) Paroxysmal atrial fibrillation: Code(s): I48.0 - Paroxysmal atrial fibrillation Status: Chronic Assessment and Plan: Stable Rate controlled at this time HR 50s-60s which was similar to previous hospital stay Continue on home amiodarone and metoprolol with parameters Continue home Xarelto Subjective Date/time seen: 04/13/20 17:09 Interval history: Patient is a 79 yo F with history of diastolic CHF, chronic wound infection of abdomen (mesh; on chronic doxycycline), paroxysmal a. fib (on amiodarone and metoprolol, on chronic xarelto), HTN, CHARLES, among several other comorbid conditions who is seen in follow up for COVID PNA and acute respiratory failure with hypoxia likely due to same. Patient states she overall feels better again today. SOB has improved. No reports of cough. Notes diarrhea that is non-bloody, non-melenic. No other complaints. Denies f/c/s, dizziness, lightheadedness, cp/palpitations, n/v, abd pain, dysuria, hematuria, cloudy urine, calf pain/swelling.
[2020-04-13] MEDS: POTASSIUM CHLORIDE 20 MEQ PACKET (FOR LIQUID) 40 MEQ PO (19:23)
[2020-04-13] MEDS: ACETAMINOPHEN 325 MG TABLET 650 MG PO (22:00)
[2020-04-13] MEDS: TOLNAFTATE 1% POWDER 45 GM BTL 1 APPLIC TOPICAL (22:00)
[2020-04-13] MEDS: clonazePAM (*CRX) 0.5 MG TABLET 1 MG PO (22:01)
[2020-04-13] MEDS: DULoxetine HCL 30 MG CAPSULE.DR PO (22:03)
[2020-04-13] MEDS: traZODone HCL 50 MG TABLET 100 MG PO (22:04)
[2020-04-13] MEDS: rOPINIRole HCL 0.25 MG TABLET PO (22:04)
[2020-04-14] VITALS (18 sets, daily range): BP systolic 126–145; BP diastolic 53–76; PULSE 50–66; RESP 16–20; TEMP 36.3–36.8; O2SAT 90–97
--- NOTE | 2020-04-14 04:04 | PCRCNOTE ---
Window of time for administration has passed. See next scheduled administration.
[2020-04-14] MEDS: IPRATROPIUM BR 0.02% INH SOLN 0.5 MG/2.5 ML VIAL INHALATION ×3 (07:59→20:27)
[2020-04-14] MEDS: ALBUTEROL SULFATE NEB 2.5 MG/0.5 ML INH INHALATION ×3 (07:59→20:27)
[2020-04-14] MEDS: VALSARTAN 160 MG TABLET 320 MG PO (09:06)
[2020-04-14] MEDS: POTASSIUM CHLORIDE 20 MEQ TABLET.ER 40 MEQ PO (09:06)
[2020-04-14] MEDS: RIVAROXABAN 20 MG TABLET PO (09:06)
[2020-04-14] MEDS: LEVOTHYROXINE SODIUM 100 MCG TABLET PO (09:07)
[2020-04-14] MEDS: MIRABEGRON 50 MG ER TABLET PO (09:07)
[2020-04-14] MEDS: LEVOTHYROXINE SODIUM 75 MCG TABLET PO (09:07)
[2020-04-14] MEDS: DEXAMETHASONE 2 MG TABLET 6 MG PO (09:07)
[2020-04-14] MEDS: GABAPENTIN 100 MG CAPSULE PO ×2 (09:07→16:06)
[2020-04-14] MEDS: PANTOPRAZOLE 40 MG TABLET PO (09:07)
[2020-04-14] MEDS: CHOLECALCIFEROL 1,000 UNITS TABLET 2000 UNITS PO (09:08)
[2020-04-14] MEDS: FUROSEMIDE 40 MG TABLET PO (09:08)
[2020-04-14] MEDS: SACCHAROMYCES BOULARDII 250 MG CAPSULE PO ×3 (09:08→16:07)
[2020-04-14] MEDS: AMIODARONE HCL 200 MG TABLET 400 MG BY MOUTH (09:09)
[2020-04-14] MEDS: DOXYCYCLINE HYCLATE 100 MG TABLET PO ×2 (09:09→16:06)
[2020-04-14] MEDS: ATORVASTATIN 40 MG TABLET PO (09:10)
[2020-04-14] MEDS: guaiFENesin 12 HR 600 MG TABCR 1200 MG PO ×2 (09:10→21:23)
[2020-04-14] MEDS: REMDESIVIR 100 MG/NS 250 ML 100 MG/250 ML BAG 250 MG IVPB (09:21)
[2020-04-14 10:56] LABS: Basophils Percent Auto 0.2 % (0.2-1.2); Hematocrit 37.6 % (37.0-47.0); Hemoglobin 12.2 g/dL (12.0-15.0); Immature Granulocyte Absolute 0.07 K/mm3 (0.00-0.031); Immature Granulocyte Percent A 1.1 % (0-0.5); Lymphocytes Absolute Auto 0.46 K/mm3 (0.9-3.2); Mean Corpuscular HGB Conc 32.4 g/dl (32-36); Mean Corpuscular Hemoglobin 32.9 pg (26-34); Mean Corpuscular Volume 101.3 fl (80-100); Mean Platelet Volume 9.1 fl (7.4-10.4); Monocytes Absolute Auto 0.4 K/mm3 (0.1-0.6); Monocytes Percent Auto 5.5 % (2.6-8.5); Neutrophils Absolute Auto 5.6 K/mm3 (1.3-6.7); Neutrophils Percent Auto 86.2 % (45.5-73.1); Platelet Count Result 189 k/mm3 (150-375); Red Blood Count 3.71 M/mm3 (4.2-5.4); Red Cell Distribution Width 13.5 % (11.5-14.5); White Blood Count 6.5 K/mm3 (4.5-10.0)
[2020-04-14 11:10] LABS: Alanine Aminotransferase 36 U/L (4-35); Albumin Level 3.5 g/dL (3.5-5.1); Alkaline Phosphatase 96 U/L (38-126); Anion Gap 9 mmol/L (8-16); Aspartate Amino Transferase 72 U/L (14-36); Bilirubin,Total 0.5 mg/dL (0.2-1.3); Blood Urea Nitrogen 21 mg/dL (7-17); CRP 8.7 mg/dL (<1.0); Calcium 8.2 mg/dL (8.4-10.2); Carbon Dioxide 34 mmol/L (22-30); Chloride 92 mmol/L (98-107); Estimated CRCL calculation 59 ml/min; Estimated Glomerular Filt Rate > 60; Glucose 142 mg/dL (65-105); Lactate Dehydrogenase 805 U/L (313-618); Magnesium 1.7 mg/dL (1.6-2.3); Potassium 3.2 mmol/L (3.4-5.0); Sodium 135 mmol/L (137-145)
--- NOTE | 2020-04-14 11:11 | PHAR ---
Home med verified: Trospium 20mg TAKE 1 TABLET PO TWICE DAILY
[2020-04-14] MEDS: LOPERAMIDE HCL 2 MG CAPSULE PO (12:25)
[2020-04-14] MEDS: FERROUS GLUCONATE 324 MG TABLET PO (12:25)
[2020-04-14] MEDS: OPTI-GEN TAB 1 TABLET PO ×2 (12:26→21:23)
--- NOTE | 2020-04-14 14:24 | PM.IMPN ---
Progress Note: A&P Assessment and Plan (1) Pneumonia due to COVID-19 virus: Code(s): U07.1 - COVID-19; J12.89 - Other viral pneumonia Status: Acute Assessment and Plan: COVID testing positive. Originally placed on IV rocephin and azithromycin upon admission; this has been discontinued. Continues on remdesivir and decadron therapy. Patient reports feeling better today. On 2L O2 NC Continue Remdesivir (3/5) Continue Decadron (day 3) Continue supportive care with IS, Tylenol for fevers, Mucinex, albuterol PRN, sched neb treatments if available on med/surg floor Monitor Labs Wean O2 as tolerated; see below (2) Acute respiratory failure due to COVID-19: Code(s): U07.1 - COVID-19; J96.00 - Acute respiratory failure, unspecified whether with hypoxia or hypercapnia Status: Acute Assessment and Plan: Patient states she was placed on oxygen about 6 months ago by her Maintenance And Engineering Manager; unable to tell me why but notes it was because she was short of breath. Intermittently uses this the past 6 months. She has history of diastolic CHF. Last hospital stay in February she was weaned to RA upon discharge. At this point, will assume patient does not have baseline O2 needs and this is likely due to COVID pneumonia. Supplemental O2; wean as tolerated Will likely do home O2 eval prior to discharge Will need f/u with PCP (3) Chronic wound infection of abdomen: Qualifiers: Encounter type: subsequent encounter Qualified Code(s): S31.109D - Unspecified open wound of abdominal wall, unspecified quadrant without penetration into peritoneal cavity, subsequent encounter; L08.9 - Local infection of the skin and subcutaneous tissue, unspecified Code(s): S31.109A - Unspecified open wound of abdominal wall, unspecified quadrant without penetration into peritoneal cavity, initial encounter; L08.9 - Local infection of the skin and subcutaneous tissue, unspecified Status: Acute Assessment and Plan: Appears to have no acute issues. Continue Wound Care instructions Will continue home chronic doxycycline BCx NGTD x 2 (4) Obstructive sleep apnea on CPAP: Code(s): G47.33 - Obstructive sleep apnea (adult) (pediatric); Z99.89 - Dependence on other enabling machines and devices Status: Chronic Assessment and Plan: I am reluctant to do BiPAP given COVID pneumonia and aerosolizing properties. Will place on hold. Trazodone weaned to 100 mg as needed QHS (5) Essential hypertension: Code(s): I10 - Essential (primary) hypertension Status: Chronic Assessment and Plan: BP 130s sys most recently Continue home antihypertensives - states she only takes 40 lasix which has been corrected Monitor (6) Paroxysmal atrial fibrillation: Code(s): I48.0 - Paroxysmal atrial fibrillation Status: Chronic Assessment and Plan: Stable Rate controlled at this time HR 50s-60s which was similar to previous hospital stay Continue on home amiodarone and metoprolol with parameters Continue home Xarelto (7) Diarrhea: Code(s): R19.7 - Diarrhea, unspecified Status: Acute Assessment and Plan: Patient has had diarrhea since arrival. Improvement overnight. [place] to be related to active COVID infection, although patient also on chronic antibiotics for wound; c. diff on differential, although felt to be less likely given description by nursing. WBC smear sent and is pending. abd xr yesterday unremarkable. Continue loperamide prn Continue banatrol and Florastor Monitor Consider further cultures pending WBC smear Subjective Date/time seen: 04/14/20 14:24 Interval history: Patient is a 9
[2020-04-14] MEDS: POTASSIUM CHLORIDE 20 MEQ PACKET (FOR LIQUID) 60 MEQ PO (16:02)
[2020-04-14] MEDS: TOLNAFTATE 1% POWDER 45 GM BTL 1 APPLIC TOPICAL ×2 (16:05→21:27)
[2020-04-14] MEDS: clonazePAM (*CRX) 0.5 MG TABLET 1 MG PO (21:22)
[2020-04-14] MEDS: DULoxetine HCL 30 MG CAPSULE.DR PO (21:22)
[2020-04-14] MEDS: traZODone HCL 50 MG TABLET 100 MG PO (21:22)
[2020-04-14] MEDS: MIRTAZAPINE SOLTAB 15 MG TAB.DISPER PO (21:22)
[2020-04-14] MEDS: rOPINIRole HCL 0.25 MG TABLET PO (21:22)
[2020-04-14] MEDS: MELATONIN 5 MG TABLET PO (21:23)
[2020-04-14] MEDS: ACETAMINOPHEN 325 MG TABLET 650 MG PO (21:24)
[2020-04-14] MEDS: PRAMIPEXOLE 0.25 MG TABLET PO (21:25)
[2020-04-14] MEDS: METOPROLOL TARTRATE 25 MG TABLET PO (21:25)
[2020-04-15] VITALS (25 sets, daily range): BP systolic 122–170; BP diastolic 57–81; PULSE 48–109; RESP 16–20; TEMP 36–36.9; O2SAT 86–96
[2020-04-15] MEDS: IPRATROPIUM BR 0.02% INH SOLN 0.5 MG/2.5 ML VIAL INHALATION ×4 (01:13→21:05)
[2020-04-15] MEDS: ALBUTEROL SULFATE NEB 2.5 MG/0.5 ML INH INHALATION ×4 (01:13→21:05)
[2020-04-15] MEDS: LEVOTHYROXINE SODIUM 75 MCG TABLET PO (05:24)
[2020-04-15] MEDS: LEVOTHYROXINE SODIUM 100 MCG TABLET PO (05:24)
[2020-04-15 06:32] LABS: Basophils Percent Auto 0.2 % (0.2-1.2); Hematocrit 37.3 % (37.0-47.0); Immature Granulocyte Absolute 0.06 K/mm3 (0.00-0.031); Immature Granulocyte Percent A 1.3 % (0-0.5); Lymphocytes Absolute Auto 0.63 K/mm3 (0.9-3.2); Lymphocytes Percent Auto 14.1 % (18.3-44.2); Mean Corpuscular HGB Conc 32.2 g/dl (32-36); Mean Corpuscular Hemoglobin 32.3 pg (26-34); Mean Corpuscular Volume 100.5 fl (80-100); Mean Platelet Volume 9.4 fl (7.4-10.4); Monocytes Absolute Auto 0.4 K/mm3 (0.1-0.6); Monocytes Percent Auto 9.2 % (2.6-8.5); Neutrophils Absolute Auto 3.4 K/mm3 (1.3-6.7); Neutrophils Percent Auto 75.2 % (45.5-73.1); Platelet Count Result 204 k/mm3 (150-375); Red Blood Count 3.71 M/mm3 (4.2-5.4); Red Cell Distribution Width 13.4 % (11.5-14.5); White Blood Count 4.5 K/mm3 (4.5-10.0)
[2020-04-15 06:53] LABS: Albumin Level 3.3 g/dL (3.5-5.1); Aspartate Amino Transferase 70 U/L (14-36); Bilirubin,Total 0.4 mg/dL (0.2-1.3); Blood Urea Nitrogen 23 mg/dL (7-17); Carbon Dioxide 38 mmol/L (22-30); Estimated CRCL calculation 59 ml/min; Estimated Glomerular Filt Rate > 60
[2020-04-15 07:22] LABS: Alanine Aminotransferase 41 U/L (4-35); Alkaline Phosphatase 100 U/L (38-126); Anion Gap 3 mmol/L (8-16); Calcium 8.3 mg/dL (8.4-10.2); Chloride 92 mmol/L (98-107); Glucose 81 mg/dL (65-105); Magnesium 1.9 mg/dL (1.6-2.3); Potassium 3.8 mmol/L (3.4-5.0); Sodium 133 mmol/L (137-145)
[2020-04-15] MEDS: guaiFENesin 12 HR 600 MG TABCR 1200 MG PO ×2 (10:11→21:44)
[2020-04-15] MEDS: SACCHAROMYCES BOULARDII 250 MG CAPSULE PO ×3 (10:11→17:34)
[2020-04-15] MEDS: DEXAMETHASONE 2 MG TABLET 6 MG PO (10:11)
[2020-04-15] MEDS: CHOLECALCIFEROL 1,000 UNITS TABLET 2000 UNITS PO (10:11)
[2020-04-15] MEDS: VALSARTAN 160 MG TABLET 320 MG PO (10:12)
[2020-04-15] MEDS: ATORVASTATIN 40 MG TABLET PO (10:12)
[2020-04-15] MEDS: RIVAROXABAN 20 MG TABLET PO (10:12)
[2020-04-15] MEDS: FUROSEMIDE 40 MG TABLET PO (10:13)
[2020-04-15] MEDS: POTASSIUM CHLORIDE 20 MEQ TABLET.ER 40 MEQ PO (10:13)
[2020-04-15] MEDS: PANTOPRAZOLE 40 MG TABLET PO (10:13)
[2020-04-15] MEDS: MIRABEGRON 50 MG ER TABLET PO (10:13)
[2020-04-15] MEDS: FERROUS GLUCONATE 324 MG TABLET PO (10:14)
[2020-04-15] MEDS: GABAPENTIN 100 MG CAPSULE PO ×2 (10:14→17:34)
[2020-04-15] MEDS: AMIODARONE HCL 200 MG TABLET 400 MG BY MOUTH (10:14)
[2020-04-15] MEDS: DOXYCYCLINE HYCLATE 100 MG TABLET PO ×2 (10:16→17:34)
[2020-04-15] MEDS: METOPROLOL TARTRATE 25 MG TABLET PO ×2 (10:17→21:43)
[2020-04-15] MEDS: TOLNAFTATE 1% POWDER 45 GM BTL 1 APPLIC TOPICAL ×2 (10:18→22:04)
[2020-04-15] MEDS: REMDESIVIR 100 MG/NS 250 ML 100 MG/250 ML BAG 250 MG IVPB (11:47)
--- NOTE | 2020-04-15 13:02 | PM.IMPN ---
Progress Note: A&P Assessment and Plan (1) Pneumonia due to COVID-19 virus: Code(s): U07.1 - COVID-19; J12.89 - Other viral pneumonia Status: Acute Assessment and Plan: COVID testing positive. Originally placed on IV rocephin and azithromycin upon admission; this has been discontinued. Continues on remdesivir and decadron therapy. Patient reports feeling better today. On 2L O2 NC Continue Remdesivir (/5) Continue Decadron (day 4) Continue supportive care with IS, Tylenol for fevers, Mucinex, albuterol PRN, sched neb treatments if available on med/surg floor Monitor Labs Wean O2 as tolerated; see below (2) Acute respiratory failure due to COVID-19: Code(s): U07.1 - COVID-19; J96.00 - Acute respiratory failure, unspecified whether with hypoxia or hypercapnia Status: Acute Assessment and Plan: Patient states she was placed on oxygen about 6 months ago by her Ship'S Electronic Warfare Officer; unable to tell me why but notes it was because she was short of breath. Intermittently uses this the past 6 months. She has history of diastolic CHF. Last hospital stay in February she was weaned to RA upon discharge. At this point, will assume patient does not have baseline O2 needs and this is likely due to COVID pneumonia. Supplemental O2; wean as tolerated Will do home O2 eval today Will need f/u with PCP (3) Chronic wound infection of abdomen: Qualifiers: Encounter type: subsequent encounter Qualified Code(s): S31.109D - Unspecified open wound of abdominal wall, unspecified quadrant without penetration into peritoneal cavity, subsequent encounter; L08.9 - Local infection of the skin and subcutaneous tissue, unspecified Code(s): S31.109A - Unspecified open wound of abdominal wall, unspecified quadrant without penetration into peritoneal cavity, initial encounter; L08.9 - Local infection of the skin and subcutaneous tissue, unspecified Status: Acute Assessment and Plan: Appears to have no acute issues. Continue Wound Care instructions Will continue home chronic doxycycline BCx NGTD x 2 (4) Obstructive sleep apnea on CPAP: Code(s): G47.33 - Obstructive sleep apnea (adult) (pediatric); Z99.89 - Dependence on other enabling machines and devices Status: Chronic Assessment and Plan: BIPAP/CPAP resumed overnight Will continue as she is in a negative pressure room Trazodone weaned to 100 mg as needed QHS (5) Essential hypertension: Code(s): I10 - Essential (primary) hypertension Status: Chronic Assessment and Plan: BP 120s sys most recently Continue home antihypertensives - states she only takes 40 lasix which has been corrected Monitor (6) Paroxysmal atrial fibrillation: Code(s): I48.0 - Paroxysmal atrial fibrillation Status: Chronic Assessment and Plan: Stable Rate controlled at this time HR 50s-60s which was similar to previous hospital stay Continue on home amiodarone and metoprolol with parameters Continue home Xarelto (7) Diarrhea: Code(s): R19.7 - Diarrhea, unspecified Status: Resolved Assessment and Plan: Diarrhea appears to have resolved. [place] to be related to active COVID infection, although patient also on chronic antibiotics for wound; c. diff on differential, although felt to be less likely given description by nursing and resolution. WBC smear from stool was sent, but was cancelled for unclear reasons. Patient has not had BM since. abd xr 04/13 unremarkable. Continue loperamide prn Continue banatrol and Florastor Monitor Subjective Date/time seen: 04/15/20 13:02 Interval history: Patient is a 79 yo F with history of diastolic
--- NOTE | 2020-04-15 13:21 | PCRCNOTE ---
HOME O2 EVAL COMPLETE, 2 LITERS AT REST AND WITH ACTIVITY. THESE ARE PT'S CURRENT HOME SETTINGS. PT'S FAMILY TO BRING IN TANK FOR DISCHARGE.
[2020-04-15] MEDS: OPTI-GEN TAB 1 TABLET PO ×2 (14:13→21:44)
[2020-04-15] MEDS: ACETAMINOPHEN 325 MG TABLET 650 MG PO (21:42)
[2020-04-15] MEDS: MELATONIN 5 MG TABLET PO (21:44)
[2020-04-15] MEDS: DULoxetine HCL 30 MG CAPSULE.DR PO (21:44)
[2020-04-15] MEDS: MIRTAZAPINE SOLTAB 15 MG TAB.DISPER PO (21:48)
[2020-04-15] MEDS: traZODone HCL 50 MG TABLET 100 MG PO (22:02)
[2020-04-15] MEDS: clonazePAM (*CRX) 0.5 MG TABLET 1 MG PO (22:03)
[2020-04-15] MEDS: rOPINIRole HCL 0.25 MG TABLET PO (22:06)
[2020-04-15] MEDS: PRAMIPEXOLE 0.25 MG TABLET PO (22:07)
[2020-04-16] VITALS (9 sets, daily range): BP systolic 140–152; BP diastolic 71–75; PULSE 50–88; RESP 18–20; TEMP 36.3–37.2; O2SAT 91–96
[2020-04-16] MEDS: IPRATROPIUM BR 0.02% INH SOLN 0.5 MG/2.5 ML VIAL INHALATION ×3 (03:11→14:36)
[2020-04-16 06:47] LABS: Basophils Percent Auto 0.4 % (0.2-1.2); Eosinophils Percent Auto 0.4 % (0-4.4); Hematocrit 34.6 % (37.0-47.0); Hemoglobin 11.4 g/dL (12.0-15.0); Immature Granulocyte Absolute 0.12 K/mm3 (0.00-0.031); Immature Granulocyte Percent A 2.6 % (0-0.5); Lymphocytes Absolute Auto 0.63 K/mm3 (0.9-3.2); Lymphocytes Percent Auto 13.5 % (18.3-44.2); Mean Corpuscular HGB Conc 32.9 g/dl (32-36); Mean Corpuscular Volume 100.3 fl (80-100); Mean Platelet Volume 9.7 fl (7.4-10.4); Monocytes Absolute Auto 0.5 K/mm3 (0.1-0.6); Monocytes Percent Auto 10.1 % (2.6-8.5); Neutrophils Absolute Auto 3.4 K/mm3 (1.3-6.7); Platelet Count Result 216 k/mm3 (150-375); Red Blood Count 3.45 M/mm3 (4.2-5.4); Red Cell Distribution Width 13.5 % (11.5-14.5); White Blood Count 4.7 K/mm3 (4.5-10.0)
[2020-04-16 07:13] LABS: Alanine Aminotransferase 41 U/L (4-35); Albumin Level 3.1 g/dL (3.5-5.1); Alkaline Phosphatase 94 U/L (38-126); Anion Gap 4 mmol/L (8-16); Aspartate Amino Transferase 61 U/L (14-36); Bilirubin,Total 0.6 mg/dL (0.2-1.3); Blood Urea Nitrogen 26 mg/dL (7-17); CRP 7.4 mg/dL (<1.0); Calcium 8.2 mg/dL (8.4-10.2); Carbon Dioxide 36 mmol/L (22-30); Chloride 91 mmol/L (98-107); Estimated CRCL calculation 66 ml/min; Estimated Glomerular Filt Rate > 60; Glucose 86 mg/dL (65-105); Lactate Dehydrogenase 822 U/L (313-618); Magnesium 1.9 mg/dL (1.6-2.3); Potassium 4.1 mmol/L (3.4-5.0); Sodium 131 mmol/L (137-145)
[2020-04-16] MEDS: LEVOTHYROXINE SODIUM 100 MCG TABLET PO (07:25)
[2020-04-16] MEDS: LEVOTHYROXINE SODIUM 75 MCG TABLET PO (07:25)
--- NOTE | 2020-04-16 07:31 | PCRCNOTE ---
Window of time for administration has passed. See next scheduled administration.
[2020-04-16] MEDS: ALBUTEROL SULFATE NEB 2.5 MG/0.5 ML INH INHALATION ×2 (09:23→14:36)
[2020-04-16] MEDS: DEXAMETHASONE 2 MG TABLET 6 MG PO (09:24)
[2020-04-16] MEDS: AMIODARONE HCL 200 MG TABLET 400 MG BY MOUTH (09:24)
[2020-04-16] MEDS: ATORVASTATIN 40 MG TABLET PO (09:25)
[2020-04-16] MEDS: CHOLECALCIFEROL 1,000 UNITS TABLET 2000 UNITS PO (09:25)
[2020-04-16] MEDS: FUROSEMIDE 40 MG TABLET PO (09:25)
[2020-04-16] MEDS: PANTOPRAZOLE 40 MG TABLET PO (09:26)
[2020-04-16] MEDS: GABAPENTIN 100 MG CAPSULE PO (09:26)
[2020-04-16] MEDS: guaiFENesin 12 HR 600 MG TABCR 1200 MG PO (09:26)
[2020-04-16] MEDS: MIRABEGRON 50 MG ER TABLET PO (09:26)
[2020-04-16] MEDS: METOPROLOL TARTRATE 25 MG TABLET PO (09:26)
[2020-04-16] MEDS: REMDESIVIR 100 MG/NS 250 ML 100 MG/250 ML BAG 250 MG IVPB (09:27)
[2020-04-16] MEDS: POTASSIUM CHLORIDE 20 MEQ TABLET.ER 40 MEQ PO (09:27)
[2020-04-16] MEDS: TOLNAFTATE 1% POWDER 45 GM BTL 1 APPLIC TOPICAL (09:28)
[2020-04-16] MEDS: VALSARTAN 160 MG TABLET 320 MG PO (09:28)
[2020-04-16] MEDS: RIVAROXABAN 20 MG TABLET PO (09:28)
[2020-04-16] MEDS: DOXYCYCLINE HYCLATE 100 MG TABLET PO (09:28)
[2020-04-16] MEDS: SACCHAROMYCES BOULARDII 250 MG CAPSULE PO ×2 (09:28→13:01)
[2020-04-16] MEDS: FERROUS GLUCONATE 324 MG TABLET PO (09:29)
[2020-04-16] MEDS: OPTI-GEN TAB 1 TABLET PO (13:01)
--- NOTE | 2020-04-16 14:40 | PM.DS ---
DS: Admitting Diagnosis Admitting Diagnosis Admitting Diagnosis: Pneumonia DS: Discharge Diagnosis Discharge Diagnosis (1) Pneumonia due to COVID-19 virus: Code(s): U07.1 - COVID-19; J12.89 - Other viral pneumonia Status: Acute Assessment and Plan: COVID testing positive. Originally placed on IV rocephin and azithromycin upon admission; this has been discontinued. Patient reports feeling better again today; eager to be discharged. On 2L O2 NC. Home O2 eval yesterday recommends 2L at rest and with activity Received Remdesivir x 5 days Received Decadron x 5 days Continue supportive care with IS, Tylenol for fevers, Mucinex, albuterol PRN F/u with PCP Home Oxygen as above (2) Acute respiratory failure due to COVID-19: Code(s): U07.1 - COVID-19; J96.00 - Acute respiratory failure, unspecified whether with hypoxia or hypercapnia Status: Acute Assessment and Plan: Patient states she was placed on oxygen about 6 months ago by her [employer]; unable to tell me why but notes it was because she was short of breath. Intermittently uses this the past 6 months. She has history of diastolic CHF. Last hospital stay in February she was weaned to RA upon discharge. Home O2 eval 04/15 rec 2L at rest and with activity 2L at rest and with activity Will need f/u with PCP (3) Chronic wound infection of abdomen: Qualifiers: Encounter type: subsequent encounter Qualified Code(s): S31.109D - Unspecified open wound of abdominal wall, unspecified quadrant without penetration into peritoneal cavity, subsequent encounter; L08.9 - Local infection of the skin and subcutaneous tissue, unspecified Code(s): S31.109A - Unspecified open wound of abdominal wall, unspecified quadrant without penetration into peritoneal cavity, initial encounter; L08.9 - Local infection of the skin and subcutaneous tissue, unspecified Status: Acute Assessment and Plan: Appears to have no acute issues. Follows with [facility] at [facility] Continue Wound Care instructions Will continue home chronic doxycycline BCx negative after 5 days (4) Obstructive sleep apnea on CPAP: Code(s): G47.33 - Obstructive sleep apnea (adult) (pediatric); Z99.89 - Dependence on other enabling machines and devices Status: Chronic Assessment and Plan: BIPAP at home Continue after discharge (5) Essential hypertension: Code(s): I10 - Essential (primary) hypertension Status: Chronic Assessment and Plan: BP 140s sys most recently Continue home antihypertensives - states she only takes 40 lasix which has been corrected Monitor (6) Paroxysmal atrial fibrillation: Code(s): I48.0 - Paroxysmal atrial fibrillation Status: Chronic Assessment and Plan: Stable Rate controlled at this time Continue on home amiodarone and metoprolol with parameters Continue home Xarelto (7) Diarrhea: Code(s): R19.7 - Diarrhea, unspecified Status: Resolved Assessment and Plan: Diarrhea appears to have resolved. [place] to be related to active COVID infection, although patient also on chronic antibiotics for wound; c. diff on differential, although felt to be less likely given description by nursing and resolution of symptoms. WBC smear from stool was sent, but was cancelled for unclear reasons. abd xr 04/13 unremarkable. Continue home meds F/u with PCP after discharge DS: Summary Hospital Course Reason for hospitalization: COVID PNA and acute respiratory failure with hypoxia likely due to same Hospital Course: Date of arrival: 04/10/20 Date of discharge: 04/16/20 Patient is a 79 yo F with history of diastolic CHF, chronic wou
== END 2020-04-16 16:08 | disposition home or self-care (01) | DRG 177 ==
LOC: ANHED 22:15 → ANH3MEDSUR 04-11 02:16
PROVIDERS: Nurse Practitioner; Admitting Provider Internal Medicine; Emergency Provider Emergency Medicine; Visit Provider Physician Assistant
DX: U07.1 COVID-19 (principal); J12.89 Other viral pneumonia; J96.01 Acute respiratory failure with hypoxia; I50.32 Chronic diastolic (congestive) heart failure; Z68.42 Body mass index [BMI] 45.0-49.9, adult; E66.01 Morbid (severe) obesity due to excess calories; R19.7 Diarrhea, unspecified; I11.0 Hypertensive heart disease with heart failure; Z99.81 Dependence on supplemental oxygen; I48.0 Paroxysmal atrial fibrillation; G47.33 Obstructive sleep apnea (adult) (pediatric); S31.109D Unspecified open wound of abdominal wall, unspecified quadrant without penetration into peritoneal cavity, subsequent encounter; L08.9 Local infection of the skin and subcutaneous tissue, unspecified; E89.0 Postprocedural hypothyroidism; G89.4 Chronic pain syndrome; G25.81 Restless legs syndrome; K21.9 Gastro-esophageal reflux disease without esophagitis; F32.9 Major depressive disorder, single episode, unspecified; F41.9 Anxiety disorder, unspecified; H35.30 Unspecified macular degeneration; Z79.01 Long term (current) use of anticoagulants; Z79.2 Long term (current) use of antibiotics; Z85.850 Personal history of malignant neoplasm of thyroid; Z88.2 Allergy status to sulfonamides; Z98.42 Cataract extraction status, left eye; Z98.41 Cataract extraction status, right eye; Z99.89 Dependence on other enabling machines and devices
CPT/HCPCS: 36415; 71045; 74019; 80053; 81001; 82565; 82728; 83615; 83735; 83880; 84460; 84484; 85025; 85027; 85055; 85610; 85730; 86140; 87040; 87086; 87635; 93005; 94640; 97110; 97116; 97161; 97165; 97530; 99285; A9270; C9803; J0456; J0696; J1650; J2405; J8540; U0003

== ENCOUNTER 2020-08-04 13:47 | Inpatient (IN) | payer MEDICARE, SELFPAY ==
[2020-08-04] VITALS (8 sets, daily range): BP systolic 113–165; BP diastolic 50–83; PULSE 56–79; RESP 17–24; TEMP 36.1–36.7; O2SAT 96–100; BMI 41.8; BMI 52.2
--- NOTE | ~2020-08-04 | US_ITS ---
EXAMINATION:US venous doppler LE LT INDICATION:Leg erythema TECHNIQUE: Multiple grayscale, color flow and Doppler images of the left lower extremity deep venous systems were obtained and reviewed. COMPARISON:No prior studies for comparison. FINDINGS: The common femoral, superficial femoral and popliteal veins demonstrate normal respiratory variation, augmentation and compressibility. Color flow is also seen within the posterior tibial, pe roneal, greater saphenous and profunda veins. IMPRESSION: 1: No lower extremity deep venous thrombosis. Reviewed, dictated and finalized at location B.
--- NOTE | ~2020-08-04 | XR_ITS ---
XR knee LT 3V DATE: 08/04/2020 15:33 INDICATION: Left knee pain and swelling, redness after fall TECHNIQUE: 3 views including crosstable lateral COMPARISON: None FINDINGS: Status post left knee joint arthroplasty. No fracture or dislocation is evident. No periost eal reaction or bone destruction. There is diffuse osteopenia. IMPRESSION: Status post left knee arthroplasty Osteopenia There is no fracture or dislocation is detected Reviewed, dictated and finalized at location B.
--- NOTE | ~2020-08-04 | XR_ITS ---
XR chest 1V portable DATE: 08/05/2020 00:48 INDICATION: Shortness of breath TECHNIQUE: Portable AP chest on 08/05/2020 at 0049 hours COMPARISON: 04/12/2020 portable AP chest FINDINGS: Cardiomegaly. Aortic arch calcification. There are extensive bilateral pulmonary infiltrates, involving the right lung diffusely and the left mid and lower lung. The infiltrates are more prominent in the right upper and lower lung zones. There is moderate elevation right leaf of the diaphragm. Small pleural effusions are suggested. Diffuse osteopenia. Dextroscoliosis of the thoracic spine. IMPRESSION: Cardiomegaly, extensive bilateral pulmonary infiltrates, right greater than left. Bilater al infiltrates are increased compared to 04/12/2020. Differential diagnosis includes pulmonary edema a nd pneumonia Reviewed, dictated and finalized at location A. IMPRESSION: Cardiomegaly, extensive bilateral pulmonary infiltrates, right grea ter than left. Bilateral infiltrates are increased compared to 04/12/2020. Diffe rential diagnosis includes pulmonary edema and pneumonia
--- NOTE | ~2020-08-04 | XR_ITS ---
XR ankle LT 2V DATE: 08/04/2020 15:32 INDICATION: Left ankle pain following fall TECHNIQUE: AP and crosstable lateral views COMPARISON: None FINDINGS: There is soft tissue swelling of the ankle and foot. There is diffuse osteopenia. No fracture or dislocation of the ankle or disruption of the ankle mortise is detected. IMPRESSION: Osteopenia Soft tissue swelling No fracture or dislocation Reviewed, dictated and finalized at location B.
--- NOTE | 2020-08-04 14:07 | PC.NURSE ---
Pt states she wears 3L of O2 at home some of the time. I informed pt that currently she was not on any O2. Put states I am ok and denies needing O2 at this time. Pt was stating at 96% on room air. Pt was told to tell this RN if she feels she need O2. Pt states stated she understood
[2020-08-04] MEDS: MORPHINE SULFATE (*CRX) 4 MG/ML INJ IM (15:29)
--- NOTE | 2020-08-04 15:50 | ED.GENADULT ---
HPI - General Adult General Chief complaint: Extremity Injury, Lower Stated complaint: fall 1 week ago left leg pain Time Seen by Provider: 08/04/20 14:21 History of Present Illness HPI narrative: Patient is a 79-year-old female who comes to the ED today complaining of pain and swelling from his left knee down after a fall last week. Patient reports that last week she was trying to get into her bed when she lost balance and she fell. She does not know if she hit her head or not, no loss of consciousness, her only known injury is in her left leg. She uses walker to help ambulate although she was not using this during the fall because she was transitioning. She is still able to ambulate but it is difficult. Denies any numbness or tingling. Does not member feeling a pop or snap during the fall. She takes Percocet for her chronic back pain. She is on Xarelto Related Data Home Medications Medication Instructions Recorded Confirmed PreserVision AREDS-2 1 tablet PO BID 02/16/20 04/11/20 Xarelto 20 mg PO DAILY 02/16/20 04/11/20 amiodarone 400 mg PO DAILY 02/16/20 04/11/20 atorvastatin 40 mg PO DAILY 02/16/20 04/11/20 biotin 10,000 mcg PO DAILY 02/16/20 04/11/20 bupropion HCl 150 mg PO BID 02/16/20 04/11/20 calcium carbonate-vitamin D3 1 cap PO DAILY 02/16/20 04/11/20 [Calcium 600 with Vitamin D3] cholecalciferol (vitamin D3) 50 mcg PO DAILY 02/16/20 04/11/20 [Vitamin D3] clonazepam 1 mg PO DAILY PRN 02/16/20 04/11/20 doxycycline hyclate 100 mg PO BID 02/16/20 04/11/20 duloxetine 30 mg PO HS 02/16/20 04/11/20 esomeprazole magnesium 40 mg PO DAILY 02/16/20 04/11/20 ferrous gluconate 236 mg PO DAILY 02/16/20 04/11/20 furosemide 80 mg PO DAILY 02/16/20 04/11/20 gabapentin 100 mg PO BID 02/16/20 04/11/20 metoprolol tartrate 25 mg PO BID 02/16/20 04/11/20 mirtazapine 15 mg PO HS 02/16/20 04/11/20 oxycodone-acetaminophen 1 tablet PO Q6H PRN 02/16/20 04/11/20 potassium chloride 40 meq PO DAILY 02/16/20 04/11/20 pramipexole 0.25 mg PO HS 02/16/20 04/11/20 ropinirole 0.25 mg PO HS 02/16/20 04/11/20 trazodone 200 mg PO HS 02/16/20 04/11/20 trospium 20 mg PO BID 02/16/20 04/14/20 valsartan 320 mg PO DAILY 02/16/20 04/11/20 levothyroxine 175 mcg PO DAILY 02/17/20 04/11/20 Allergies Allergy/AdvReac Type Severity Reaction Status Date / Time Sulfa (Sulfonamide Allergy Unknown unknown Verified 08/04/20 15:09 Antibiotics) Review of Systems Constitutional: Constitutional: Reports as per HPI, Denies fever(s), Denies night sweats and Denies weakness Cardiovascular: Cardiovascular: Denies chest pain, Denies edema, Denies leg edema, Denies dyspnea and Denies orthopnea Respiratory: Respiratory: Denies cough and Denies dyspnea Gastrointestinal: Gastrointestinal: Denies abdominal pain, Denies constipation, Denies diarrhea, Denies nausea and Denies vomiting Musculoskeletal: Musculoskeletal: Denies abnormal gait, Denies back pain, Denies numbness and Denies tingling Neurologic: Denies Abnormal speech present, Denies abnormal gait, Denies numbness, Denies tingling and Denies weakness Psychiatric: Psychiatric: Denies homicidal ideation and Denies suicidal ideation [facility] Past Medical History Medical History Anemia Anxiety Chronic diastolic congestive heart failure Echocardiogram in October 2018 demonstrated hyperdynamic left ventricular function with an ejection fraction of 71%, moderate left atrial enlargement, and grade 2 diastolic dysfunction. Chronic pain syndrome Chronic wound infection of abdomen On long-term doxycycline b.i.d. Current use of custodial anticoagulation On Xarelto for stroke prophylaxis given paroxysmal atrial fibrillation. Depression Essential hypertension Gastroesophageal reflux disease Hyperlipidemia Macular degeneration Morbid obesity Obstructive sleep apnea on CPAP Overactive bladder Paroxysmal atrial fibrillation On Xarelto for stroke prophylaxis. Pos
[2020-08-04 17:01] LABS: Basophils Percent Auto 0.3 % (0.2-1.2); Eosinophils Absolute Auto 0.1 K/mm3 (0-0.3); Eosinophils Percent Auto 1.3 % (0-4.4); Hematocrit 33.7 % (37.0-47.0); Hemoglobin 10.7 g/dL (12.0-15.0); Immature Granulocyte Absolute 0.07 K/mm3 (0.00-0.031); Immature Granulocyte Percent A 1.1 % (0-0.5); Lymphocytes Absolute Auto 0.73 K/mm3 (0.9-3.2); Lymphocytes Percent Auto 11.6 % (18.3-44.2); Mean Corpuscular HGB Conc 31.8 g/dl (32-36); Mean Corpuscular Hemoglobin 33.5 pg (26-34); Mean Corpuscular Volume 105.6 fl (80-100); Mean Platelet Volume 10.3 fl (7.4-10.4); Monocytes Absolute Auto 0.3 K/mm3 (0.1-0.6); Monocytes Percent Auto 4.3 % (2.6-8.5); Neutrophils Absolute Auto 5.1 K/mm3 (1.3-6.7); Neutrophils Percent Auto 81.4 % (45.5-73.1); Platelet Count Result 147 k/mm3 (150-375); Red Blood Count 3.19 M/mm3 (4.2-5.4); Red Cell Distribution Width 14.4 % (11.5-14.5); White Blood Count 6.3 K/mm3 (4.5-10.0)
--- NOTE | 2020-08-04 17:50 | PC.NURSE ---
Paper Latcher at bedside with ultra sound to place IV at this time. Paper Latcher getting redraw of Green [place] due to multiple unsuccessful attempts.
--- NOTE | 2020-08-04 18:40 | PC.NURSE ---
Patients blood hemolyzed for second time, attempted multiple times. Phlebotomy called for labs. EDP requests that antibiotics be held until blood cultures and other blood work is resulted.
--- NOTE | 2020-08-04 20:20 | PC.NURSE ---
Pt's current IV to Rt forearm has infiltrated. No pain or redness. Delay in admission to start another IV.
--- NOTE | 2020-08-04 21:05 | ADMGEN ---
This patient, Michelle Rogel, was admitted to Medical Room 243-01. Patient/family oriented to hospital policies and general routines including ID bracelet, bed and alarms, visiting hours, pain management, procedures, bathroom and other care routines, personal items, smoking policy, room service/diet, and visiting hours. Information on how to activate the Rapid Response Team has been discussed. Patient/Family are encouraged to report perceived risks to care and to ask questions if they do not understand what they are told or what they should do.
[2020-08-04] MEDS: ALBUTEROL SULFATE NEB 2.5 MG/3 ML INH 1.25 MG INHALATION (22:16)
[2020-08-04 22:32] LABS: Alveolar/Arterial O2 Gradient 420.1 mmHg; Base Excess ABG 3.8 mEq/l (+/-2.0); Fractional Inspired Oxygen 80 %; HCO3 ABG 29.8 mEq/l (22.0-26.0); Oxygen Content ABG 15.5 %vol (16.0-22.0); Oxygen Saturation ABG 97.1 % (95.0-100.0); Oxyhemoglobin 95.2 % THb (90.0-100.0); PCO2 ABG 51.3 mmHg (35.0-45.0); PO2 ABG 96.4 mmHg (80.0-100.0); PO2 FiO2 Ratio Arterial Blood 1.21 %; Total Hemoglobin 11.5 g/dL (12.0-18.0); pH ABG 7.382 (7.350-7.450)
[2020-08-04 22:33] LABS: Device NON-REBREATHER MASK; Site Drawn RIGHT BRACHIAL
--- NOTE | 2020-08-04 23:11 | PM.IMHP ---
H&P: HPI History of Present Illness Date/Time: 08/04/20 23:11 Chief Complaint: Left leg pain Narrative: 79-year-old female with past medical history of morbid obesity, diastolic congestive heart failure, paroxysmal atrial fibrillation, dermatitis and prior episodes of cellulitis who presented to the ER with worsening left leg pain for 1 week. Review of Systems Review of Systems: Narrative: 12 systems were reviewed with pertinent positives and negatives per HPI. Except as documented in the HPI, all other systems were reviewed and are negative. [facility] Past Medical History Medical History Anemia Anxiety Chronic diastolic congestive heart failure Echocardiogram in October 2018 demonstrated hyperdynamic left ventricular function with an ejection fraction of 71%, moderate left atrial enlargement, and grade 2 diastolic dysfunction. Chronic pain syndrome Chronic wound infection of abdomen On long-term doxycycline b.i.d. Current use of longterm anticoagulation On Xarelto for stroke prophylaxis given paroxysmal atrial fibrillation. Depression Essential hypertension Gastroesophageal reflux disease Hyperlipidemia Macular degeneration Morbid obesity Obstructive sleep apnea on CPAP Overactive bladder Paroxysmal atrial fibrillation On Xarelto for stroke prophylaxis. Postsurgical hypothyroidism Restless leg syndrome Shingles Thyroid cancer Status post thyroidectomy. Surgical History Surgical History H/O bilateral cataract extraction History of appendectomy (~2003) Complicated postoperative course with chronic midline abdominal wound. History of hernia repair History of orthopedic surgery ORIF right lower extremity fracture. History of ovarian cystectomy History of spinal surgery History of thyroidectomy History of total abdominal hysterectomy History of total bilateral knee replacement Family History Family History (Updated 08/04/20 @ 23:38 by Liza Natarajan DO) Mother Alzheimer's dementia Hypertension Father Acute myocardial infarction Sibling Hypertension Son Heart attack Social History Social History (Updated 08/04/20 @ 23:38 by Liza Natarajan DO) Social History: Surrogate decision maker: Prince Rogel, . Code status: Full code. Smoking status: Never smoker Alcohol intake: never Substance use: never Additional living arrangements comments: Lives in [place] with her . They have 3 children. Ambulates with a walker. Gender identity (if verbalized by the patient): Female Spiritual care concerns: No Meds Home Medications and Allergies Home Medications Medication Instructions Recorded Confirmed Type PreserVision AREDS-2 1 tablet PO BID 02/16/20 08/04/20 History Xarelto 20 mg PO DAILY 02/16/20 08/04/20 History amiodarone 400 mg PO DAILY 02/16/20 08/04/20 History atorvastatin 40 mg PO DAILY 02/16/20 08/04/20 History biotin 10,000 mcg PO DAILY 02/16/20 08/04/20 History bupropion HCl 150 mg PO BID 02/16/20 08/04/20 History calcium carbonate-vitamin D3 1 cap PO DAILY 02/16/20 08/04/20 History [Calcium 600 with Vitamin D3] cholecalciferol (vitamin D3) 50 mcg PO DAILY 02/16/20 08/04/20 History [Vitamin D3] clonazepam 1 mg PO DAILY PRN 02/16/20 08/04/20 History doxycycline hyclate 100 mg PO BID 02/16/20 08/04/20 History duloxetine 30 mg PO HS 02/16/20 08/04/20 History esomeprazole magnesium 40 mg PO DAILY 02/16/20 08/04/20 History ferrous gluconate 236 mg PO DAILY 02/16/20 08/04/20 History furosemide 80 mg PO DAILY 02/16/20 08/04/20 History gabapentin 100 mg PO BID 02/16/20 08/04/20 History metoprolol tartrate 25 mg PO BID 02/16/20 08/04/20 History mirtazapine 15 mg PO HS 02/16/20 08/04/20 History oxycodone-acetaminophen 1 tablet PO Q6H PRN 02/16/20 08/04/20 History potassium chloride 40 meq PO DAILY 02/16/20 08/04/20 History ropinirole 0
--- NOTE | 2020-08-04 23:20 | P.PCNBED_ITS ---
Procedures Central Line Placement Right Femoral: Central Line Date: 08/04/20 Central Line Time: 22:48 Discussed w/ the patient/family/POA,the placement of a central venous catheter, including its clinical necessity/indication & associated potential risks, benifits and alternatives.: Yes The patient/family/POA understand(s) and acknowledge(s) the need to proceed with central venous catheter insertion as an important element of the patient's clinical management.: Yes Time Out Performed: Yes Patient Position: trendelenburg Patient placed on monitor/pulse ox: Yes Provider Prep: mask, sterile gown, sterile gloves, Max. sterile barrier precautions, cap and hand hygiene with conventional soap/water or alcohol based hand rub Central line prep: 2% Chlorhexidine scrub and sterile full body sheet applied Local anesthesia used: lidocaine 1% Amount of anesthesia used (ml): 5 Sterile US Technique with sterile gel/sterile probe covers: Yes Central line lumen inserted: triple [place]: 7 Length (cm): 16 Depth of Insertion (cm): 14 Post Procedure: sutured in place, good blood return, all ports aspirated, flushed, capped, transparent dressing, hemostatic product, antimicrobial product, securement product and aseptic technique maintained throughout procedure Patient tolerated procedure: well and no complications
[2020-08-04 23:24] LABS: Alanine Aminotransferase 31 U/L (4-35); Albumin Level 3.5 g/dL (3.5-5.1); Alkaline Phosphatase 115 U/L (38-126); Anion Gap 2 mmol/L (8-16); Aspartate Amino Transferase 37 U/L (14-36); Bilirubin,Total 0.9 mg/dL (0.2-1.3); Blood Urea Nitrogen 19 mg/dL (7-17); Calcium 8.7 mg/dL (8.4-10.2); Carbon Dioxide 35 mmol/L (22-30); Chloride 99 mmol/L (98-107); Estimated CRCL calculation 69 ml/min; Estimated Glomerular Filt Rate > 60; Glucose 112 mg/dL (65-105); Magnesium 1.8 mg/dL (1.6-2.3); Sodium 136 mmol/L (137-145)
[2020-08-04 23:25] LABS: Lactic Acid Reflex 0.8 mmol/L (0.7-2.1)
[2020-08-05] VITALS (17 sets, daily range): BP systolic 121–133; BP diastolic 54–61; PULSE 49–78; RESP 14–22; TEMP 36.1–36.4; O2SAT 95–99
--- NOTE | 2020-08-05 | ECG_ITS ---
Measurements Intervals [place] Rate: 58 P: 99 AL: 170 QRS: 66 QRSD: 90 T: 51 QT: 458 QTc: 452 Interpretive Statements SINUS BRADYCARDIA BASELINE ARTIFACT- V3-V4 BORDERLINE ECG Electronically Signed On 08-05-2020 6:41:42 CDT by Saji Loyns D.O.
--- NOTE | 2020-08-05 00:05 | PC.NURSE ---
When getting patient off bedpan her oxygen dropped to 86%. I called Cesia Garcia and respiratory. Rosa Isela Berger, and respiratory at bedside. Bipap placed on patient oxygen saturation increased to 89%. No iv access at this time. Further orders given. Oxygen stable at 100%. Dr Natarajan placed central line in right groin.
[2020-08-05 00:07] LABS: NT Pro B Type Natriuretic Pept 1640 PG/ML (5-100)
[2020-08-05] MEDS: traZODone HCL 50 MG TABLET 200 MG PO ×2 (00:08→20:15)
[2020-08-05] MEDS: GABAPENTIN 100 MG CAPSULE PO ×3 (00:08→20:15)
[2020-08-05] MEDS: rOPINIRole HCL 0.25 MG TABLET PO ×2 (00:09→20:16)
[2020-08-05] MEDS: RIVAROXABAN 20 MG TABLET PO ×2 (00:09→17:26)
[2020-08-05] MEDS: DULoxetine HCL 30 MG CAPSULE.DR PO ×2 (00:10→20:15)
[2020-08-05] MEDS: METOPROLOL TARTRATE 25 MG TABLET PO ×3 (00:11→20:15)
[2020-08-05] MEDS: PRAMIPEXOLE 1 MG TABLET PO ×2 (00:11→20:15)
[2020-08-05] MEDS: MIRTAZAPINE SOLTAB 15 MG TAB.DISPER PO ×2 (00:30→20:15)
[2020-08-05] MEDS: DOXYCYCLINE HYCLATE 100 MG TABLET PO ×2 (00:31→05:52)
[2020-08-05 00:46] LABS: INR 1.3; Prothrombin Time 16.7 Seconds (11.1-14.7)
[2020-08-05 00:47] LABS: Partial Thromboplastin Time 44.2 SECONDS (22.3-36.8)
[2020-08-05] MEDS: OPTI-GEN TAB 1 TABLET PO ×3 (02:15→17:26)
[2020-08-05] MEDS: oxyCODONE/ACETAMINOPHEN (*CRX) 5-325 MG TABLET 1 TABLET PO ×3 (03:51→18:14)
[2020-08-05 04:00] LABS: Free T4 Free Thyroxine Reflex 0.93 ng/dL (0.78-2.19)
[2020-08-05 05:41] LABS: Total Triiodothyronine (T3) 0.48 NG/ML (0.97-1.69)
[2020-08-05] MEDS: LEVOTHYROXINE SODIUM 75 MCG TABLET PO (05:52)
[2020-08-05] MEDS: LEVOTHYROXINE SODIUM 100 MCG TABLET PO (05:53)
[2020-08-05 06:32] LABS: Hematocrit 27.2 % (37.0-47.0); Hemoglobin 8.8 g/dL (12.0-15.0); Mean Corpuscular HGB Conc 32.4 g/dl (32-36); Mean Corpuscular Hemoglobin 33.8 pg (26-34); Mean Corpuscular Volume 104.6 fl (80-100); Platelet Count Result 137 k/mm3 (150-375); Red Cell Distribution Width 14.4 % (11.5-14.5); White Blood Count 6.9 K/mm3 (4.5-10.0)
[2020-08-05 06:45] LABS: Anion Gap 1 mmol/L (8-16); Blood Urea Nitrogen 19 mg/dL (7-17); Calcium 8.2 mg/dL (8.4-10.2); Carbon Dioxide 35 mmol/L (22-30); Chloride 99 mmol/L (98-107); Estimated CRCL calculation 61 ml/min; Estimated Glomerular Filt Rate > 60; Glucose 128 mg/dL (65-105); Potassium 4.3 mmol/L (3.4-5.0); Sodium 135 mmol/L (137-145)
--- NOTE | 2020-08-05 08:40 | PM.IMPN ---
Progress Note: A&P Assessment and Plan (1) Acute respiratory failure with hypoxia: Code(s): J96.01 - Acute respiratory failure with hypoxia Status: Acute Assessment and Plan: BiPAP PRN cont to monitor closely (2) Acute exacerbation of CHF (congestive heart failure): Code(s): I50.9 - Heart failure, unspecified Status: Acute Assessment and Plan: Continue IV Lasix 80 b.i.d. Continue BiPAP p.r.n. Daily weights Strict eyes and nose Salt restriction Fluid restriction 1200 cc per day (3) Paroxysmal atrial fibrillation: Code(s): I48.0 - Paroxysmal atrial fibrillation Status: Chronic Assessment and Plan: Patient on Xarelto and metoprolol (4) Community acquired pneumonia: Qualifiers: Laterality: unspecified laterality Qualified Code(s): J18.9 - Pneumonia, unspecified organism Code(s): J18.9 - Pneumonia, unspecified organism Status: Acute Assessment and Plan: azithro/ ceftriaxone (5) Obstructive sleep apnea on CPAP: Code(s): G47.33 - Obstructive sleep apnea (adult) (pediatric); Z99.89 - Dependence on other enabling machines and devices Status: Chronic Assessment and Plan: sleep study outpt (6) Cellulitis: Qualifiers: Laterality: left Site of cellulitis: extremity Site of cellulitis of extremity: lower extremity Qualified Code(s): L03.116 - Cellulitis of left lower limb Code(s): L03.90 - Cellulitis, unspecified Status: Acute Assessment and Plan: vanco/ceftriaxone Time Spent With Patient Time: > 30 min Subjective Date/time seen: 08/05/20 10:40 Patient doing okay she is refusing to have any more Lasix unless she has a Beauch[place] catheter. Her breathing is somewhat improved although she is noted to be discharged today with speaking she remains at 92% oxygen. BiPAP is at bedside. Patient is advised to notified nurses she starts to feel short of breath again. Left lower extremity swelling in area of chronic venous stasis Doppler still pending on IV antibiotics. Review of Systems Review of Systems: All systems reviewed & are unremarkable except as noted in HPI and below Exam Narrative: Exam Narrative: GEN: NAD, AAOx3, somewhat cooperative, morbidly obese HEENT: NCAT, MMM, EOMI Heart: S1S2 RRR Lungs: Right-sided diffuse crackles, pursed lip breathing Abd: soft, NT, ND, bowel sounds normoactive Ext: moves all, no cyanosis, no clubbing, + edema Neuro: slumber room attendant intact, moves all extremities equally, denies sensory changes Psych: mood and affect congruent Objective Data Vital Signs Vital Signs: Vital Signs - 24 hr 08/04/20 13:49 08/04/20 14:26 08/04/20 17:19 Temperature 97.0 F L 98.0 F Pulse Rate 59 L 60 56 L Respiratory Rate 17 17 18 Blood Pressure 141/60 H 113/50 L 152/80 H Pulse Oximetry 96 97 100 08/04/20 20:26 08/04/20 21:27 08/04/20 21:39 Temperature 97.1 F L Pulse Rate 60 61 Respiratory Rate 18 22 H Blood Pressure 148/72 H 165/83 H Pulse Oximetry 96 100 100 08/04/20 22:15 08/04/20 22:28 08/05/20 00:11 Temperature Pulse Rate 79 74 62 Respiratory Rate 24 H 23 H Blood Pressure Pulse Oximetry 100 08/05/20 03:15 08/05/20 04:00 08/05/20 05:02 Temperature 97 F L Pulse Rate 53 L 57 L 54 L Respiratory Rate 16 20 Blood Pressure 123/55 L Pulse Oximetry 97 97 08/05/20 07:40 08/05/20 07:45 08/05/20 08:00 Temperature Pulse Rate 51 L 59 L 52 L Respiratory Rate 14 16 Blood Pressure Pulse Oximetry 97 95 08/05/20 09:00 08/05/20 09:25 Temperature 97.1 F L Pulse Rate 56 L 56 L Respiratory Rate 16 Blood Pressure 133/54 L Pulse Oximetry 97 Intake/Output Intake/Output: Intake & Output 08/02/20 08/03/20 08/04/20 08/05/20 23:59 23:59 23:59 23:59 Intake Total 500 920 Output Total 400 Balance 500 520 Meds/Results Medications: Active Medications Generic Name Dose Route Start Last Admin Trade N
[2020-08-05] MEDS: VALSARTAN 160 MG TABLET 320 MG PO (09:21)
[2020-08-05] MEDS: POTASSIUM CHLORIDE 20 MEQ TABLET.ER 40 MEQ PO (09:22)
[2020-08-05] MEDS: AMIODARONE HCL 200 MG TABLET 400 MG PO (09:25)
[2020-08-05] MEDS: FERROUS GLUCONATE 324 MG TABLET PO (09:26)
[2020-08-05] MEDS: ATORVASTATIN 40 MG TABLET PO (09:26)
[2020-08-05] MEDS: PANTOPRAZOLE 40 MG TABLET PO (09:26)
[2020-08-05] MEDS: CHOLECALCIFEROL 1,000 UNITS TABLET 2000 UNITS PO (09:27)
[2020-08-05] MEDS: FUROSEMIDE INJ 100 MG/10 ML VIAL 80 MG IV PUSH ×2 (11:33→17:26)
[2020-08-05] MEDS: CENTRAL LINE FLUSH 10 ML IV PUSH ×3 (14:20→20:17)
[2020-08-06] VITALS (19 sets, daily range): BP systolic 100–138; BP diastolic 44–70; PULSE 48–66; RESP 14–20; TEMP 36.1–37.4; O2SAT 93–97
[2020-08-06] MEDS: LEVOTHYROXINE SODIUM 75 MCG TABLET PO (06:18)
[2020-08-06] MEDS: LEVOTHYROXINE SODIUM 100 MCG TABLET PO (06:18)
[2020-08-06] MEDS: oxyCODONE/ACETAMINOPHEN (*CRX) 5-325 MG TABLET 1 TABLET PO ×3 (06:23→20:05)
[2020-08-06 08:30] LABS: Hematocrit 27.6 % (37.0-47.0); Hemoglobin 8.9 g/dL (12.0-15.0); Mean Corpuscular HGB Conc 32.2 g/dl (32-36); Mean Corpuscular Hemoglobin 33.6 pg (26-34); Mean Corpuscular Volume 104.2 fl (80-100); Mean Platelet Volume 9.6 fl (7.4-10.4); Platelet Count Result 135 k/mm3 (150-375); Red Blood Count 2.65 M/mm3 (4.2-5.4); Red Cell Distribution Width 14.4 % (11.5-14.5); White Blood Count 5.6 K/mm3 (4.5-10.0)
[2020-08-06 08:44] LABS: Anion Gap 1 mmol/L (8-16); Blood Urea Nitrogen 18 mg/dL (7-17); Calcium 8.1 mg/dL (8.4-10.2); Carbon Dioxide 39 mmol/L (22-30); Chloride 96 mmol/L (98-107); Estimated CRCL calculation 62 ml/min; Estimated Glomerular Filt Rate > 60; Glucose 99 mg/dL (65-105); Potassium 4.1 mmol/L (3.4-5.0); Sodium 136 mmol/L (137-145)
[2020-08-06] MEDS: VALSARTAN 160 MG TABLET 320 MG PO (09:52)
[2020-08-06] MEDS: OPTI-GEN TAB 1 TABLET PO ×2 (09:52→17:12)
[2020-08-06] MEDS: ATORVASTATIN 40 MG TABLET PO (09:52)
[2020-08-06] MEDS: CHOLECALCIFEROL 1,000 UNITS TABLET 2000 UNITS PO (09:52)
[2020-08-06] MEDS: GABAPENTIN 100 MG CAPSULE PO ×2 (09:52→20:07)
[2020-08-06] MEDS: FERROUS GLUCONATE 324 MG TABLET PO (09:52)
[2020-08-06] MEDS: POTASSIUM CHLORIDE 20 MEQ TABLET.ER 40 MEQ PO (09:53)
[2020-08-06] MEDS: PANTOPRAZOLE 40 MG TABLET PO (09:53)
[2020-08-06] MEDS: AMIODARONE HCL 200 MG TABLET 400 MG PO (09:53)
[2020-08-06] MEDS: METOPROLOL TARTRATE 25 MG TABLET PO ×2 (09:54→20:07)
[2020-08-06] MEDS: FUROSEMIDE INJ 100 MG/10 ML VIAL 80 MG IV PUSH ×2 (10:00→17:12)
--- NOTE | 2020-08-06 10:03 | PM.IMPN ---
Progress Note: A&P Assessment and Plan (1) Acute exacerbation of CHF (congestive heart failure): Qualifiers: Heart failure type: unspecified Qualified Code(s): I50.9 - Heart failure, unspecified Code(s): I50.9 - Heart failure, unspecified Status: Acute Assessment and Plan: Continue IV Lasix 80 b.i.d. Continue BiPAP p.r.n. Salt restriction Fluid restriction 1200 cc per day (2) Cellulitis: Qualifiers: Laterality: left Site of cellulitis: extremity Site of cellulitis of extremity: lower extremity Qualified Code(s): L03.116 - Cellulitis of left lower limb Code(s): L03.90 - Cellulitis, unspecified Status: Acute Assessment and Plan: LLE vanco/ceftriaxone imrpoving slowly (3) Acute respiratory failure with hypoxia: Code(s): J96.01 - Acute respiratory failure with hypoxia Status: Acute Assessment and Plan: BiPAP PRN cont to monitor closely (4) Community acquired pneumonia: Qualifiers: Laterality: unspecified laterality Qualified Code(s): J18.9 - Pneumonia, unspecified organism Code(s): J18.9 - Pneumonia, unspecified organism Status: Acute Assessment and Plan: possible, but more likely CHF azithro/ ceftriaxone (5) Paroxysmal atrial fibrillation: Code(s): I48.0 - Paroxysmal atrial fibrillation Status: Chronic Assessment and Plan: continue Xarelto and metoprolol (6) Obstructive sleep apnea on CPAP: Code(s): G47.33 - Obstructive sleep apnea (adult) (pediatric); Z99.89 - Dependence on other enabling machines and devices Status: Chronic Assessment and Plan: sleep study outpt (7) Hypothyroidism (acquired): Code(s): E03.9 - Hypothyroidism, unspecified Status: Acute Assessment and Plan: Continue levothyroxine 175mc po daily TSH and free T4 and TT3 suggest possible noncompliance vs sick euthyroid (8) Thrombocytopenia: Code(s): D69.6 - Thrombocytopenia, unspecified Status: Acute Assessment and Plan: Possibly related to acute infection Monitor (9) Anemia: Qualifiers: Anemia type: unspecified type Qualified Code(s): D64.9 - Anemia, unspecified Code(s): D64.9 - Anemia, unspecified Status: Acute Assessment and Plan: Relatively stable since admission but worse than prior labs Check stool occult blood, iron, b12, retic Subjective Date/time seen: 08/06/20 10:03 Interval history: 08/06. Less short of breath. Tolerated physical therapy but walked only short distance. Very sedentary at home. Left leg feels better. Review of Systems Review of Systems: All systems reviewed & are unremarkable except as noted in HPI and below Exam Narrative: Exam Narrative: HEENT: EOMI, PERRL, sclerae nonicteric, pharyngeal mucosa pink and intact NECK: No JVD, adenopathy, or thyromegaly CHEST: Mildly tachypneic with diminished breath sounds and few crackles at bases HEART: NL S1/S2, regular, no murmur ABDOMEN: BS+, soft, nontender, no mass, no bruits EXTREMITIES: Chronic venous stasis changes with some skin thickening. 1+ edema of feet and trace pretibial pitting edema. Mild erythema of right leg and moderate erythema of left leg and dorsal foot with with increased warmth and tenderness. NEUROLOGIC: CN intact and symmetric to inspection. MUSCULOSKELETAL: Tone and strength symmetric. PSYCH: Alert. Oriented to person, place, and time. Objective Data Vital Signs Vital Signs: Vital Signs - 24 hr 08/05/20 12:00 08/05/20 14:00 08/05/20 16:00 Temperature 97.6 F Pulse Rate 56 L 56 L 49 L Respiratory Rate 16 Blood Pressure 122/61 Pulse Oximetry 96 08/05/20 20:00 08/05/20 20:15 08/05/20 20:37 Temperature 96.9 F L Pulse Rate 61 78 59 L Respiratory Rate 22 H 22 H Blood Pressure 121/60 Pulse Oximetry 99 99 08/05/20 21:07 08/05/20 22:45 08/06/20 00:00 Temperature Pulse Rate 61 56 L 48
[2020-08-06 10:07] LABS: IFOB Positive Control Positive; Immunochemical Fecal Occult Bl Negative (N)
[2020-08-06 16:47] LABS: Immature Reticulocyte Fraction 16.5 % (3.0-15.9); Reticulocyte Hemoglobin Conten 37.8 pg (28.2-35.7); Reticulocyte Percent 1.31 % (0.7-4.3); Reticulocytes Absolute 0.04 B/L (32.2-175.7)
[2020-08-06 17:11] LABS: Iron 44 ug/dL (37-170)
[2020-08-06] MEDS: RIVAROXABAN 20 MG TABLET PO (17:12)
[2020-08-06 17:18] LABS: Percent Iron Saturation 20 % (20-50)
[2020-08-06 19:55] LABS: Folic Acid 7.1 ng/mL (2.76->20)
[2020-08-06] MEDS: DULoxetine HCL 30 MG CAPSULE.DR PO (20:07)
[2020-08-06] MEDS: rOPINIRole HCL 0.25 MG TABLET PO (20:08)
[2020-08-06] MEDS: traZODone HCL 50 MG TABLET 200 MG PO (20:08)
[2020-08-06] MEDS: PRAMIPEXOLE 1 MG TABLET PO (20:08)
[2020-08-06] MEDS: MIRTAZAPINE SOLTAB 15 MG TAB.DISPER PO (20:12)
[2020-08-07] VITALS (16 sets, daily range): BP systolic 102–130; BP diastolic 48–60; PULSE 51–74; RESP 17–20; TEMP 36.1–36.7; O2SAT 92–99
[2020-08-07 02:34] LABS: Vancomycin Trough 14.8 ug/mL (10.0-20.0)
[2020-08-07 05:19] LABS: Basophils Percent Auto 0.2 % (0.2-1.2); Eosinophils Absolute Auto 0.1 K/mm3 (0-0.3); Eosinophils Percent Auto 2.1 % (0-4.4); Hematocrit 26.5 % (37.0-47.0); Hemoglobin 8.6 g/dL (12.0-15.0); Immature Granulocyte Absolute 0.09 K/mm3 (0.00-0.031); Immature Granulocyte Percent A 1.4 % (0-0.5); Lymphocytes Absolute Auto 0.61 K/mm3 (0.9-3.2); Lymphocytes Percent Auto 9.8 % (18.3-44.2); Mean Corpuscular HGB Conc 32.5 g/dl (32-36); Mean Corpuscular Volume 101.5 fl (80-100); Mean Platelet Volume 9.8 fl (7.4-10.4); Monocytes Absolute Auto 0.6 K/mm3 (0.1-0.6); Neutrophils Absolute Auto 4.8 K/mm3 (1.3-6.7); Neutrophils Percent Auto 76.5 % (45.5-73.1); Platelet Count Result 142 k/mm3 (150-375); Red Blood Count 2.61 M/mm3 (4.2-5.4); Red Cell Distribution Width 14.5 % (11.5-14.5); White Blood Count 6.2 K/mm3 (4.5-10.0)
[2020-08-07] MEDS: LEVOTHYROXINE SODIUM 75 MCG TABLET PO (05:37)
[2020-08-07] MEDS: LEVOTHYROXINE SODIUM 100 MCG TABLET PO (05:37)
[2020-08-07 05:56] LABS: Blood Urea Nitrogen 19 mg/dL (7-17); CRP 13.9 mg/dL (<1.0); Carbon Dioxide > 40 mmol/L (22-30); Chloride 93 mmol/L (98-107); Estimated CRCL calculation 61 ml/min; Estimated Glomerular Filt Rate > 60; Glucose 118 mg/dL (65-105); Magnesium 1.7 mg/dL (1.6-2.3); Potassium 3.6 mmol/L (3.4-5.0); Sodium 134 mmol/L (137-145)
[2020-08-07] MEDS: CHOLECALCIFEROL 1,000 UNITS TABLET 2000 UNITS PO (08:11)
[2020-08-07] MEDS: GABAPENTIN 100 MG CAPSULE PO ×2 (08:11→21:12)
[2020-08-07] MEDS: VALSARTAN 160 MG TABLET 320 MG PO (08:11)
[2020-08-07] MEDS: FERROUS GLUCONATE 324 MG TABLET PO (08:11)
[2020-08-07] MEDS: OPTI-GEN TAB 1 TABLET PO ×2 (08:11→17:01)
[2020-08-07] MEDS: POTASSIUM CHLORIDE 20 MEQ TABLET.ER 40 MEQ PO ×2 (08:11→17:01)
[2020-08-07] MEDS: ATORVASTATIN 40 MG TABLET PO (08:11)
[2020-08-07] MEDS: PANTOPRAZOLE 40 MG TABLET PO (08:11)
[2020-08-07] MEDS: AMIODARONE HCL 200 MG TABLET 400 MG PO (08:12)
[2020-08-07] MEDS: METOPROLOL TARTRATE 25 MG TABLET PO ×2 (08:13→21:12)
[2020-08-07] MEDS: FUROSEMIDE INJ 100 MG/10 ML VIAL 80 MG IV PUSH (08:13)
--- NOTE | 2020-08-07 10:16 | PM.IMPN ---
Progress Note: A&P Assessment and Plan (1) Acute exacerbation of CHF (congestive heart failure): Qualifiers: Heart failure type: unspecified Qualified Code(s): I50.9 - Heart failure, unspecified Code(s): I50.9 - Heart failure, unspecified Status: Acute Assessment and Plan: 08/07 Seems close to baseline 08/07 Reduce furosemide from 80mg bid to 20mg bid IV (home dose is 40mg PO BID) Salt restriction Fluid restriction 1200 cc per day (2) Cellulitis: Qualifiers: Laterality: left Site of cellulitis: extremity Site of cellulitis of extremity: lower extremity Qualified Code(s): L03.116 - Cellulitis of left lower limb Code(s): L03.90 - Cellulitis, unspecified Status: Acute Assessment and Plan: LLE vanco/ceftriaxone 08/07 CRP 13.9 imrpoving slowly (3) Acute respiratory failure with hypoxia: Code(s): J96.01 - Acute respiratory failure with hypoxia Status: Acute Assessment and Plan: Current 2 LPM NC is her baseline oxygen use at home cont to monitor closely (4) Community acquired pneumonia: Qualifiers: Laterality: unspecified laterality Qualified Code(s): J18.9 - Pneumonia, unspecified organism Code(s): J18.9 - Pneumonia, unspecified organism Status: Acute Assessment and Plan: possible, but more likely CHF ceftriaxone (5) Paroxysmal atrial fibrillation: Code(s): I48.0 - Paroxysmal atrial fibrillation Status: Chronic Assessment and Plan: continue Xarelto and metoprolol (6) Obstructive sleep apnea on CPAP: Code(s): G47.33 - Obstructive sleep apnea (adult) (pediatric); Z99.89 - Dependence on other enabling machines and devices Status: Chronic Assessment and Plan: F/u as outpatient (7) Hypothyroidism (acquired): Code(s): E03.9 - Hypothyroidism, unspecified Status: Acute Assessment and Plan: Continue levothyroxine 175mc po daily TSH and free T4 and TT3 suggest possible noncompliance (8) Thrombocytopenia: Code(s): D69.6 - Thrombocytopenia, unspecified Status: Acute Assessment and Plan: Possibly related to acute infection B12 low NL range, check MMA Monitor (9) Anemia: Qualifiers: Anemia type: unspecified type Qualified Code(s): D64.9 - Anemia, unspecified Code(s): D64.9 - Anemia, unspecified Status: Acute Assessment and Plan: B12 low NL range, check MMA Occult blood negative Iron studies unremarkable Retic [place] Subjective Date/time seen: 08/07/20 10:16 Interval history: 08/07. Left leg improved with less redness and pain. Less sob. Less leg swelling. Mild nausea. No emesis. Review of Systems Review of Systems: All systems reviewed & are unremarkable except as noted in HPI and below Exam Narrative: Exam Narrative: HEENT: EOMI, PERRL, sclerae nonicteric, pharyngeal mucosa pink and intact NECK: No JVD, adenopathy, or thyromegaly CHEST: Mildly tachypneic with diminished breath sounds and few crackles at bases HEART: NL S1/S2, regular, no murmur ABDOMEN: BS+, soft, nontender, no mass, no bruits EXTREMITIES: Chronic venous stasis changes with some skin thickening. trace edema of feet and trace pretibial pitting edema. No erythema of right leg and mild erythema of left leg and dorsal foot with with increased warmth and tenderness. NEUROLOGIC: CN intact and symmetric to inspection. MUSCULOSKELETAL: Tone and strength symmetric. PSYCH: Alert. Oriented to person, place, and time. Objective Data Vital Signs Vital Signs: Vital Signs - 24 hr 08/06/20 12:13 08/06/20 14:00 08/06/20 16:00 Temperature 99.3 F Pulse Rate 57 L 60 57 L Respiratory Rate 16 Blood Pressure 138/55 L Pulse Oximetry 93 08/06/20 16:48 08/06/20 19:58 08/06/20 20:00 Temperature 98.8 F Pulse Rate 56 L Respiratory Rate Blood Pressure Pulse Oximetry 95 08/06/20 20:07 08/06/20 21:31 08/06
[2020-08-07] MEDS: PROMETHAZINE HCL 25 MG/ML AMPUL 12.5 MG IV PUSH (10:28)
[2020-08-07] MEDS: oxyCODONE/ACETAMINOPHEN (*CRX) 5-325 MG TABLET 1 TABLET PO ×2 (11:54→19:45)
[2020-08-07] MEDS: RIVAROXABAN 20 MG TABLET PO (17:02)
[2020-08-07] MEDS: FUROSEMIDE INJ 40 MG/4 ML VIAL 20 MG IV PUSH (17:02)
[2020-08-07] MEDS: LOPERAMIDE HCL 2 MG CAPSULE PO (17:46)
[2020-08-07] MEDS: PRAMIPEXOLE 1 MG TABLET PO (21:11)
[2020-08-07] MEDS: traZODone HCL 50 MG TABLET 200 MG PO (21:11)
[2020-08-07] MEDS: DULoxetine HCL 30 MG CAPSULE.DR PO (21:11)
[2020-08-07] MEDS: rOPINIRole HCL 0.25 MG TABLET PO (21:12)
[2020-08-07] MEDS: MIRTAZAPINE SOLTAB 15 MG TAB.DISPER PO (21:28)
[2020-08-07] MEDS: clonazePAM (*CRX) 0.5 MG TABLET 1 MG PO (22:00)
[2020-08-08] VITALS (15 sets, daily range): BP systolic 104–116; BP diastolic 44–72; PULSE 47–60; RESP 13–23; TEMP 36–36.4; O2SAT 91–98
[2020-08-08] MEDS: LEVOTHYROXINE SODIUM 100 MCG TABLET PO (05:32)
[2020-08-08] MEDS: LEVOTHYROXINE SODIUM 75 MCG TABLET PO (05:32)
[2020-08-08 05:39] LABS: Basophils Percent Auto 0.3 % (0.2-1.2); Eosinophils Absolute Auto 0.2 K/mm3 (0-0.3); Eosinophils Percent Auto 3.1 % (0-4.4); Hemoglobin 9.3 g/dL (12.0-15.0); Immature Granulocyte Absolute 0.14 K/mm3 (0.00-0.031); Immature Granulocyte Percent A 2.1 % (0-0.5); Lymphocytes Absolute Auto 0.76 K/mm3 (0.9-3.2); Lymphocytes Percent Auto 11.3 % (18.3-44.2); Mean Corpuscular HGB Conc 32.1 g/dl (32-36); Mean Corpuscular Hemoglobin 32.9 pg (26-34); Mean Corpuscular Volume 102.5 fl (80-100); Mean Platelet Volume 9.4 fl (7.4-10.4); Monocytes Absolute Auto 0.6 K/mm3 (0.1-0.6); Monocytes Percent Auto 9.2 % (2.6-8.5); Platelet Count Result 130 k/mm3 (150-375); Red Blood Count 2.83 M/mm3 (4.2-5.4); Red Cell Distribution Width 14.6 % (11.5-14.5); White Blood Count 6.7 K/mm3 (4.5-10.0)
[2020-08-08 05:58] LABS: Blood Urea Nitrogen 19 mg/dL (7-17); CRP 7.7 mg/dL (<1.0); Carbon Dioxide > 40 mmol/L (22-30); Chloride 93 mmol/L (98-107); Estimated CRCL calculation 49 ml/min; Estimated Glomerular Filt Rate 54; Glucose 88 mg/dL (65-105); Potassium 3.9 mmol/L (3.4-5.0); Sodium 134 mmol/L (137-145)
[2020-08-08] MEDS: VALSARTAN 160 MG TABLET 320 MG PO (08:44)
[2020-08-08] MEDS: CHOLECALCIFEROL 1,000 UNITS TABLET 2000 UNITS PO (08:45)
[2020-08-08] MEDS: ATORVASTATIN 40 MG TABLET PO (08:45)
[2020-08-08] MEDS: OPTI-GEN TAB 1 TABLET PO ×2 (08:46→17:08)
[2020-08-08] MEDS: POTASSIUM CHLORIDE 20 MEQ TABLET.ER 40 MEQ PO ×2 (08:46→17:06)
[2020-08-08] MEDS: GABAPENTIN 100 MG CAPSULE PO ×2 (08:46→21:10)
[2020-08-08] MEDS: FERROUS GLUCONATE 324 MG TABLET PO (08:46)
[2020-08-08] MEDS: METOPROLOL TARTRATE 25 MG TABLET PO (08:46)
[2020-08-08] MEDS: AMIODARONE HCL 200 MG TABLET 400 MG PO (08:46)
[2020-08-08] MEDS: PANTOPRAZOLE 40 MG TABLET PO (08:46)
[2020-08-08] MEDS: FUROSEMIDE INJ 40 MG/4 ML VIAL 20 MG IV PUSH ×2 (08:47→17:07)
[2020-08-08] MEDS: acetaZOLAMIDE TAB 250 MG TABLET PO (10:17)
[2020-08-08] MEDS: oxyCODONE/ACETAMINOPHEN (*CRX) 5-325 MG TABLET 1 TABLET PO ×2 (10:17→17:07)
[2020-08-08] MEDS: PROMETHAZINE HCL 25 MG/ML AMPUL 12.5 MG IV PUSH (12:54)
--- NOTE | 2020-08-08 13:28 | PM.IMPN ---
Progress Note: A&P Assessment and Plan (1) Acute exacerbation of CHF (congestive heart failure): Qualifiers: Heart failure type: unspecified Qualified Code(s): I50.9 - Heart failure, unspecified Code(s): I50.9 - Heart failure, unspecified Status: Acute Assessment and Plan: 08/07 Seems close to baseline 08/07 Reduce furosemide from 80mg bid to 20mg bid IV (home dose is 40mg PO BID) Salt restriction Fluid restriction 1200 cc per day Patient with bilateral lower extremity cellulitis being treated ceftriaxone and vancomycin patient states the pain and swelling and redness has improving, patient admitted with lower extremity edema most diuresed with IV Lasix 80 mg b.i.d., on 08/07 it was reduced to 20 mg IV b.i.d. states the swelling has improved, CRP decreased from 13.9 on 08/07 to 7.7 today, her kidney function stable, today patient working with physical therapy still requiring assistance with ADLs will continue present managed reassess tomorrow and further recommendation to follow (2) Cellulitis: Qualifiers: Laterality: left Site of cellulitis: extremity Site of cellulitis of extremity: lower extremity Qualified Code(s): L03.116 - Cellulitis of left lower limb Code(s): L03.90 - Cellulitis, unspecified Status: Acute Assessment and Plan: LLE vanco/ceftriaxone 08/07 CRP 13.9 imrpoving slowly (3) Acute respiratory failure with hypoxia: Code(s): J96.01 - Acute respiratory failure with hypoxia Status: Acute Assessment and Plan: Current 2 LPM NC is her baseline oxygen use at home cont to monitor closely (4) Community acquired pneumonia: Qualifiers: Laterality: unspecified laterality Qualified Code(s): J18.9 - Pneumonia, unspecified organism Code(s): J18.9 - Pneumonia, unspecified organism Status: Acute Assessment and Plan: possible, but more likely CHF ceftriaxone (5) Paroxysmal atrial fibrillation: Code(s): I48.0 - Paroxysmal atrial fibrillation Status: Chronic Assessment and Plan: continue Xarelto and metoprolol (6) Obstructive sleep apnea on CPAP: Code(s): G47.33 - Obstructive sleep apnea (adult) (pediatric); Z99.89 - Dependence on other enabling machines and devices Status: Chronic Assessment and Plan: F/u as outpatient (7) Hypothyroidism (acquired): Code(s): E03.9 - Hypothyroidism, unspecified Status: Acute Assessment and Plan: Continue levothyroxine 175mc po daily TSH and free T4 and TT3 suggest possible noncompliance (8) Thrombocytopenia: Code(s): D69.6 - Thrombocytopenia, unspecified Status: Acute Assessment and Plan: Possibly related to acute infection B12 low NL range, check MMA Monitor (9) Anemia: Qualifiers: Anemia type: unspecified type Qualified Code(s): D64.9 - Anemia, unspecified Code(s): D64.9 - Anemia, unspecified Status: Acute Assessment and Plan: B12 low NL range, check MMA Occult blood negative Iron studies unremarkable Retic OK Additional Plan Patient was initially admitted for left lower extremity cellulitis. Her leg is markedly erythematous but have any leukocytosis or fever. She is on empiric antibiotic therapy with vancomycin. Blood cultures are pending. The patient has chronic hypoxic respiratory failure and is on 2 L nasal cannula at home and wears a CPAP at night. She now has acute on chronic hypoxic hypercapnic respiratory failure. Nursing staff was getting the patient off of the bedpan when she suddenly developed shortness of breath and marked hypoxia. Her oxygen saturations were 85% under 2 L nasal cannula. The patient's oxygen saturations did not improve despite being placed on 5 L nasal cannula. A stat neb treatment was ordered and the patient was placed on BiPAP with improvement in her symptoms. Her ABG demonstrated normal PO2 on mild hypercapnia. Patient's
[2020-08-08] MEDS: RIVAROXABAN 20 MG TABLET PO (17:06)
[2020-08-08] MEDS: traZODone HCL 50 MG TABLET 200 MG PO (21:10)
[2020-08-08] MEDS: PRAMIPEXOLE 1 MG TABLET PO (21:10)
[2020-08-08] MEDS: DULoxetine HCL 30 MG CAPSULE.DR PO (21:10)
[2020-08-08] MEDS: rOPINIRole HCL 0.25 MG TABLET PO (21:10)
[2020-08-08] MEDS: MIRTAZAPINE SOLTAB 15 MG TAB.DISPER PO (21:10)
[2020-08-08] MEDS: METOPROLOL TARTRATE 12.5 MG TABLET PO (21:11)
[2020-08-08] MEDS: clonazePAM (*CRX) 0.5 MG TABLET 1 MG PO (21:57)
[2020-08-09] VITALS (17 sets, daily range): BP systolic 131–143; BP diastolic 44–76; PULSE 47–54; RESP 13–20; TEMP 36–36.4; O2SAT 92–99
[2020-08-09] MEDS: LEVOTHYROXINE SODIUM 100 MCG TABLET PO (05:52)
[2020-08-09] MEDS: LEVOTHYROXINE SODIUM 75 MCG TABLET PO (05:52)
[2020-08-09 06:15] LABS: Potassium 4.1 mmol/L (3.4-5.0)
[2020-08-09] MEDS: FUROSEMIDE INJ 40 MG/4 ML VIAL 20 MG IV PUSH ×2 (09:18→17:48)
[2020-08-09] MEDS: oxyCODONE/ACETAMINOPHEN (*CRX) 5-325 MG TABLET 1 TABLET PO ×2 (09:18→16:00)
[2020-08-09] MEDS: PANTOPRAZOLE 40 MG TABLET PO (09:19)
[2020-08-09] MEDS: GABAPENTIN 100 MG CAPSULE PO ×2 (09:19→20:59)
[2020-08-09] MEDS: POTASSIUM CHLORIDE 20 MEQ TABLET.ER 40 MEQ PO ×2 (09:19→17:48)
[2020-08-09] MEDS: FERROUS GLUCONATE 324 MG TABLET PO (09:19)
[2020-08-09] MEDS: VALSARTAN 160 MG TABLET 320 MG PO (09:19)
[2020-08-09] MEDS: OPTI-GEN TAB 1 TABLET PO ×2 (09:19→17:48)
[2020-08-09] MEDS: ATORVASTATIN 40 MG TABLET PO (09:20)
[2020-08-09] MEDS: AMIODARONE HCL 200 MG TABLET 400 MG PO (09:21)
[2020-08-09] MEDS: LOPERAMIDE HCL 2 MG CAPSULE PO (09:27)
[2020-08-09] MEDS: PROMETHAZINE HCL 25 MG/ML AMPUL 12.5 MG IV PUSH (09:27)
[2020-08-09 10:04] LABS: Hematocrit 31.4 % (37.0-47.0); Mean Corpuscular HGB Conc 31.8 g/dl (32-36); Mean Corpuscular Hemoglobin 32.8 pg (26-34); Mean Platelet Volume 9.8 fl (7.4-10.4); Platelet Count Result 174 k/mm3 (150-375); Red Blood Count 3.05 M/mm3 (4.2-5.4); Red Cell Distribution Width 14.7 % (11.5-14.5); White Blood Count 9.6 K/mm3 (4.5-10.0)
[2020-08-09 10:16] LABS: Anion Gap 3 mmol/L (8-16); Blood Urea Nitrogen 20 mg/dL (7-17); Calcium 9.1 mg/dL (8.4-10.2); Carbon Dioxide 37 mmol/L (22-30); Chloride 96 mmol/L (98-107); Estimated CRCL calculation 45 ml/min; Estimated Glomerular Filt Rate 48; Glucose 113 mg/dL (65-105); Potassium 4.1 mmol/L (3.4-5.0); Sodium 136 mmol/L (137-145)
--- NOTE | 2020-08-09 11:12 | PM.CNCAR ---
Assessment and Plan Assessment and plan (1) Paroxysmal atrial fibrillation: Code(s): I48.0 - Paroxysmal atrial fibrillation Status: Chronic Assessment and Plan: 79-year-old female with paroxysmal atrial fibrillation on chronic anticoagulation with rivaroxaban, CHF with preserved ejection fraction, hypertension, chronic respiratory failure, CHARLES on CPAP/BiPAP, depression. Patient currently in sinus bradycardia with heart rates in 40s. Patient has underlying chronic respiratory failure. She has been on amiodarone. Due to underlying respiratory failure, would recommend discontinuation of amiodarone. Continue low-dose metoprolol with close monitoring of heart rate. Continue anticoagulation with rivaroxaban. Patient advised to follow-up with her primary animal damage control agent after hospital discharge. (2) Sinus bradycardia: Code(s): R00.1 - Bradycardia, unspecified Status: Acute Assessment and Plan: Due to bradycardia and chronic respiratory failure, discontinue amiodarone. Continue low-dose metoprolol. (3) Acute exacerbation of CHF (congestive heart failure): Qualifiers: Heart failure type: unspecified Qualified Code(s): I50.9 - Heart failure, unspecified Code(s): I50.9 - Heart failure, unspecified Status: Acute Assessment and Plan: Patient has acute on chronic CHF with preserved ejection fraction. Continue IV diuresis, may switch to p.o. in 1-2 days. Patient will need maintenance diuresis at discharge. (4) Cellulitis: Qualifiers: Laterality: left Site of cellulitis: extremity Site of cellulitis of extremity: lower extremity Qualified Code(s): L03.116 - Cellulitis of left lower limb Code(s): L03.90 - Cellulitis, unspecified Status: Acute Assessment and Plan: Management as per primary team with appropriate antibiotics. History of Present Illness History of Present Illness Consult date/time: 08/09/20 11:12 Date of consult 08/09/2020 Reason for consult: History of AFib, now bradycardia Requesting physician:Dr Higuera Chief complaint: Left knee pain HPI: 79-year-old female with paroxysmal atrial fibrillation on chronic anticoagulation with rivaroxaban, CHF with preserved ejection fraction, hypertension, chronic respiratory failure, CHARLES on CPAP/BiPAP, depression.. Patient presented to [facility] on 08/04/2020 with left leg swelling and redness. Patient states that her symptoms started about 2 months ago. She has been receiving treatment for cellulitis with antibiotics. Patient reports improvement in left leg swelling and redness. He denies any fever or chills. EKG from 08/05/2020 on presentation on my personal evaluation shows sinus bradycardia, heart rate 58 beats per minute, no significant ST-T abnormality. NT proBNP is elevated at 1640. Chest x-ray showed Cardiomegaly, extensive bilateral pulmonary infiltrates, right greater than left. Bilateral infiltrates increased compared to 04/12/2020 with differential diagnosis of pulmonary edema and pneumonia. Left lower extremity venous duplex negative for DVT. Patient was found to have bradycardia during hospitalization with heart rates in 40s, and Cardiology was consulted. During her previous hospitalization in October 2018, patient also had episodes of sinus bradycardia with heart rates in 40s and 50s. On telemetry at present, patient is in sinus bradycardia with heart rate 49. She denies any cardiovascular symptoms. At baseline, she uses walker for ambulation. She denies chest pain. Patient follows up with a animal damage control agent at [facility]. Echocardiogram from 11/06/2018 showed preserved ejection fraction, grade 2 diastolic dysfunction,Moderate LAE, mild MR grade Reason For Visit: Cellulitis Review of Systems Review of Systems: Narrative: General: Generalized fatigue Psychological: Negative for anxiety, depression Ophthalmic: negative for loss of vision ENT: Negative for epistaxis,
--- NOTE | 2020-08-09 12:29 | PM.IMPN ---
Progress Note: A&P Assessment and Plan (1) Acute exacerbation of CHF (congestive heart failure): Qualifiers: Heart failure type: unspecified Qualified Code(s): I50.9 - Heart failure, unspecified Code(s): I50.9 - Heart failure, unspecified Status: Acute Assessment and Plan: 08/07 Seems close to baseline 08/07 Reduce furosemide from 80mg bid to 20mg bid IV (home dose is 40mg PO BID) Salt restriction Fluid restriction 1200 cc per day 08/09/20 12:29 Patient with bilateral lower extremity cellulitis being treated ceftriaxone and vancomycin patient states the pain and swelling and redness has improving, patient admitted with lower extremity edema most diuresed with IV Lasix 80 mg b.i.d., on 08/07 it was reduced to 20 mg IV b.i.d. states the swelling has improved, CRP decreased from 13.9 on 08/07 to 7.7 today, her kidney function stable, today patient working with physical therapy still requiring assistance with ADLs will continue present managed reassess tomorrow and further recommendation to follow. Today patient states feeling better denies any complaint chest pain shortness of palpitation and states lower extremity swelling and erythema is better, however patient continued to have bradycardia we are holding metoprolol will continue amiodarone and lisinopril, patient is clinically stable will consult storage garage manager further recommendation, patient had been diuresed with Lasix 80 mg b.i.d. and was reduced to 20 mg b.i.d., for cellulitis patient is being treated vancomycin and ceftriaxone clinical symptoms are improving and CRP is trending down. will continue and monitor patient. Patient is participating in PT OT. (2) Cellulitis: Qualifiers: Laterality: left Site of cellulitis: extremity Site of cellulitis of extremity: lower extremity Qualified Code(s): L03.116 - Cellulitis of left lower limb Code(s): L03.90 - Cellulitis, unspecified Status: Acute Assessment and Plan: LLE vanco/ceftriaxone 08/07 CRP 13.9 imrpoving slowly (3) Acute respiratory failure with hypoxia: Code(s): J96.01 - Acute respiratory failure with hypoxia Status: Acute Assessment and Plan: Current 2 LPM NC is her baseline oxygen use at home cont to monitor closely (4) Community acquired pneumonia: Qualifiers: Laterality: unspecified laterality Qualified Code(s): J18.9 - Pneumonia, unspecified organism Code(s): J18.9 - Pneumonia, unspecified organism Status: Acute Assessment and Plan: possible, but more likely CHF ceftriaxone (5) Paroxysmal atrial fibrillation: Code(s): I48.0 - Paroxysmal atrial fibrillation Status: Chronic Assessment and Plan: continue Xarelto and metoprolol (6) Obstructive sleep apnea on CPAP: Code(s): G47.33 - Obstructive sleep apnea (adult) (pediatric); Z99.89 - Dependence on other enabling machines and devices Status: Chronic Assessment and Plan: F/u as outpatient (7) Hypothyroidism (acquired): Code(s): E03.9 - Hypothyroidism, unspecified Status: Acute Assessment and Plan: Continue levothyroxine 175mc po daily TSH and free T4 and TT3 suggest possible noncompliance (8) Thrombocytopenia: Code(s): D69.6 - Thrombocytopenia, unspecified Status: Acute Assessment and Plan: Possibly related to acute infection B12 low NL range, check MMA Monitor (9) Anemia: Qualifiers: Anemia type: unspecified type Qualified Code(s): D64.9 - Anemia, unspecified Code(s): D64.9 - Anemia, unspecified Status: Acute Assessment and Plan: B12 low NL range, check MMA Occult blood negative Iron studies unremarkable Retic [place] Subjective Date/time seen: 08/09/20 12:29 Patient with bilateral lower extremity cellulitis being treated ceftriaxone and vancomycin patient states the pain and swelling and redness has improving, patient admitted with
[2020-08-09] MEDS: CHOLECALCIFEROL 1,000 UNITS TABLET 2000 UNITS PO (12:38)
[2020-08-09] MEDS: RIVAROXABAN 20 MG TABLET PO (17:48)
[2020-08-09] MEDS: traZODone HCL 50 MG TABLET 200 MG PO (20:58)
[2020-08-09] MEDS: rOPINIRole HCL 0.25 MG TABLET PO (20:59)
[2020-08-09] MEDS: PRAMIPEXOLE 1 MG TABLET PO (20:59)
[2020-08-09] MEDS: METOPROLOL TARTRATE 12.5 MG TABLET PO (20:59)
[2020-08-09] MEDS: DULoxetine HCL 30 MG CAPSULE.DR PO (21:01)
[2020-08-09] MEDS: MIRTAZAPINE SOLTAB 15 MG TAB.DISPER PO (21:01)
[2020-08-09] MEDS: clonazePAM (*CRX) 0.5 MG TABLET 1 MG PO (21:04)
[2020-08-10] VITALS (16 sets, daily range): BP systolic 103–133; BP diastolic 43–67; PULSE 46–60; RESP 15–18; TEMP 36.2–36.8; O2SAT 94–100
--- NOTE | 2020-08-10 | ECHO_ITS ---
Patient Info Name: Michelle Rogel Age: 79 years : 1940 Gender: Female Ht: 60 in Wt: 263 lbs BSA: 2.33 m2 HR: 54 bpm BP: 124 / 67 mmHg Heart Rhythm: Sinus Rhythm Technical Quality: Good Exam Date: 08/10/2020 1:29 PM Exam Location: [facility] Patient Status: Inpatient Admit Date: 08/04/2020 Staff Ordering Physician: Randall Daly MD Lead Customer Service Representative: Mike Chin, NGUYEN, RT Attending Provider: Alexander Gill MD Referring Physician: Malika BELTRÁN; Exam Type: CA echo doppler color flow Study Info Indications I50.9 - Heart failure, unspecified I48.1 - Persistent atrial fibrillation Complete two-dimensional, color flow and Doppler transthoracic echocardiogram is performed. Strain analysis performed. Summary 1. Complete two-dimensional, color flow and Doppler transthoracic echocardiogram is performed. 2. Strain analysis performed. 3. Left ventricular chamber dimension is normal. 4. Left ventricular systolic function is normal, estimated at 65-70%. 5. There is mildly increased left ventricular wall thickness. 6. The left ventricular diastolic function is normal. 7. Global longitudinal strain is normal at -18 %. 8. Left atrial chamber dimension is severely enlarged. 9. There is mild to moderate mitral valve regurgitation. 10. There is mild tricuspid valve regurgitation. 11. Mild pulmonary hypertension, estimated pulmonary arterial systolic pressure is 45 mmHg. Left Ventricle Left ventricular chamber dimension is normal. Left ventricular systolic function is normal, estimated at 65-70%. There is mildly increased left ventricular wall thickness. The left ventricular diastolic function is normal. Global longitudinal strain is normal at -18 %. Right Ventricle Right ventricular chamber dimension is normal. Right ventricular systolic function is normal. Left Atria Left atrial chamber dimension is severely enlarged. Right Atria Right atrial chamber dimension is normal. Atrial Septum Intact interatrial septum visualized by color flow imaging. Aortic Valve The aortic valve is trileaflet. There is mild aortic valve sclerosis. There is no aortic valve stenosis. There is trace aortic valve regurgitation. Pulmonic Valve The pulmonic valve is normal. There is no pulmonic valve stenosis. There is trace pulmonic regurgitation. Mitral Valve The mitral valve has normal leaflets. There is no mitral valve stenosis. There is mild to moderate mitral valve regurgitation. Tricuspid Valve The tricuspid valve leaflets are normal. There is no significant tricuspid valve stenosis. There is mild tricuspid valve regurgitation. Mild pulmonary hypertension, estimated pulmonary arterial systolic pressure is 45 mmHg. Pericardium/Pleural The pericardium appears normal. There is no pericardial effusion. Inferior Vena Cava Dilated inferior vena cava with >50% collapse upon inspiration consistent with elevated right atrial pressure, 10 mmHg. Aorta The aortic root size at the sinus of Valsalva is normal. The prox ascending aorta size is normal. Left Ventricular Outflow Tract Name Value Normal LVOT 2D LVOT Diameter 2.0 cm LVOT Doppler
[2020-08-10] MEDS: LEVOTHYROXINE SODIUM 75 MCG TABLET PO (05:48)
[2020-08-10] MEDS: LEVOTHYROXINE SODIUM 100 MCG TABLET PO (05:48)
[2020-08-10 05:54] LABS: Hematocrit 30.2 % (37.0-47.0); Hemoglobin 9.5 g/dL (12.0-15.0); Mean Corpuscular HGB Conc 31.5 g/dl (32-36); Mean Corpuscular Hemoglobin 32.3 pg (26-34); Mean Corpuscular Volume 102.7 fl (80-100); Mean Platelet Volume 9.4 fl (7.4-10.4); Platelet Count Result 193 k/mm3 (150-375); Red Blood Count 2.94 M/mm3 (4.2-5.4); Red Cell Distribution Width 14.8 % (11.5-14.5); White Blood Count 8.1 K/mm3 (4.5-10.0)
[2020-08-10 06:12] LABS: Anion Gap 1 mmol/L (8-16); Blood Urea Nitrogen 19 mg/dL (7-17); Calcium 8.7 mg/dL (8.4-10.2); Carbon Dioxide 37 mmol/L (22-30); Chloride 99 mmol/L (98-107); Estimated CRCL calculation 45 ml/min; Estimated Glomerular Filt Rate 48; Glucose 96 mg/dL (65-105); Potassium 4.5 mmol/L (3.4-5.0); Sodium 137 mmol/L (137-145)
[2020-08-10] MEDS: oxyCODONE/ACETAMINOPHEN (*CRX) 5-325 MG TABLET 1 TABLET PO ×2 (08:16→16:23)
[2020-08-10] MEDS: POTASSIUM CHLORIDE 20 MEQ TABLET.ER 40 MEQ PO ×2 (08:16→16:23)
[2020-08-10] MEDS: GABAPENTIN 100 MG CAPSULE PO ×2 (08:17→21:06)
[2020-08-10] MEDS: VALSARTAN 160 MG TABLET 320 MG PO (08:17)
[2020-08-10] MEDS: PANTOPRAZOLE 40 MG TABLET PO (08:18)
[2020-08-10] MEDS: OPTI-GEN TAB 1 TABLET PO ×2 (08:19→16:23)
[2020-08-10] MEDS: METOPROLOL TARTRATE 12.5 MG TABLET PO ×2 (08:19→21:06)
[2020-08-10] MEDS: ATORVASTATIN 40 MG TABLET PO (08:20)
[2020-08-10] MEDS: FERROUS GLUCONATE 324 MG TABLET PO (08:20)
[2020-08-10] MEDS: FUROSEMIDE INJ 40 MG/4 ML VIAL 20 MG IV PUSH ×2 (08:20→16:23)
--- NOTE | 2020-08-10 10:07 | PM.PNCARD ---
Progress Note: A&P Assessment and Plan (1) Paroxysmal atrial fibrillation: Code(s): I48.0 - Paroxysmal atrial fibrillation Status: Chronic Assessment and Plan: 79-year-old female with paroxysmal atrial fibrillation on chronic anticoagulation with rivaroxaban, CHF with preserved ejection fraction, hypertension, chronic respiratory failure, CHARLES on CPAP/BiPAP, depression. Patient currently in sinus bradycardia with heart rates in 40s. Patient has underlying chronic respiratory failure. She has been on amiodarone. Due to underlying respiratory failure, would recommend discontinuation of amiodarone. Continue low-dose metoprolol with close monitoring of heart rate. Continue anticoagulation with rivaroxaban. Patient advised to follow-up with her primary gas main fitter helper after hospital discharge. (2) Sinus bradycardia: Code(s): R00.1 - Bradycardia, unspecified Status: Acute Assessment and Plan: Due to bradycardia and chronic respiratory failure, discontinue amiodarone. Continue low-dose metoprolol. (3) Acute exacerbation of CHF (congestive heart failure): Qualifiers: Heart failure type: unspecified Qualified Code(s): I50.9 - Heart failure, unspecified Code(s): I50.9 - Heart failure, unspecified Status: Acute Assessment and Plan: Patient has acute on chronic CHF with preserved ejection fraction. Will give an extra dose of furosemide 40 mg IV x1. Continue IV diuresis, may switch to p.o. in 1-2 days. Patient will need maintenance diuresis at discharge. I will order a 2D echocardiogram Doppler also (4) Cellulitis: Qualifiers: Laterality: left Site of cellulitis: extremity Site of cellulitis of extremity: lower extremity Qualified Code(s): L03.116 - Cellulitis of left lower limb Code(s): L03.90 - Cellulitis, unspecified Status: Acute Assessment and Plan: Management as per primary team with appropriate antibiotics. Subjective Date/time seen: 08/10/20 10:07 Interval history: Patient with bilateral lower extremity cellulitis being treated ceftriaxone and vancomycin patient states the pain and swelling and redness has improving, patient admitted with lower extremity edema most diuresed with IV Lasix 80 mg b.i.d., on 08/07 it was reduced to 20 mg IV b.i.d. states the swelling has improved, CRP decreased from 13.9 on 08/07 to 7.7 today, her kidney function stable, today patient working with physical therapy still requiring assistance with ADLs will continue present managed reassess tomorrow and further recommendation to follow Date of service 08/10/2020: She feels more short of breath. Still has some swelling. No syncope. No chest pain Review of Systems Review of Systems: All systems reviewed & are unremarkable except as noted in HPI and below Constitutional: Constitutional: Denies weakness Eyes: Eyes: Denies blurry vision ENT: Reports Normal hearing present Cardiovascular: Cardiovascular: Denies chest pain and Reports leg edema Respiratory: Respiratory: Reports dyspnea Gastrointestinal: Gastrointestinal: Denies abdominal pain Genitourinary: Genitourinary: Denies hematuria Musculoskeletal: Musculoskeletal: Denies arthralgias Integumentary/Breasts: Skin/Breast: Denies dry skin and Reports erythema Neurologic: Denies headache(s) Psychiatric: Psychiatric: Denies anxiety Endocrine: Endocrine: Denies change in body appearance Hematologic/Lymphatic: Hematologic/Lymphatic: Denies easy bruising Allergic/Immunologic: Allergic/Immunologic: Denies GI upset with certain foods Exam Narrative: Exam Narrative: PHYSICAL EXAMINATION: GENERAL: Obese, sitting up in the chair, Alert, oriented, no acute distress MENTAL STATUS: affect appropriate to mood EYES: Extraocular movements intact, no pallor EARS: External ears appear normal, hearing grossly normal NOSE: Normal and patent, no discharge MOUTH: Mucous membranes moist, tongue norm
[2020-08-10] MEDS: CHOLECALCIFEROL 1,000 UNITS TABLET 2000 UNITS PO (10:20)
[2020-08-10] MEDS: FUROSEMIDE INJ 40 MG/4 ML VIAL IV PUSH (10:20)
[2020-08-10] MEDS: PROMETHAZINE HCL 25 MG/ML AMPUL 12.5 MG IV PUSH (10:20)
--- NOTE | 2020-08-10 12:12 | PM.IMPN ---
Progress Note: A&P Assessment and Plan (1) Acute exacerbation of CHF (congestive heart failure): Qualifiers: Heart failure type: unspecified Qualified Code(s): I50.9 - Heart failure, unspecified Code(s): I50.9 - Heart failure, unspecified Status: Acute Assessment and Plan: 08/07 Seems close to baseline 08/07 Reduce furosemide from 80mg bid to 20mg bid IV (home dose is 40mg PO BID) Salt restriction Fluid restriction 1200 cc per day 08/10/20 12:12 Patient with bilateral lower extremity cellulitis being treated ceftriaxone and vancomycin patient states the pain and swelling and redness has improving, patient admitted with lower extremity edema most diuresed with IV Lasix 80 mg b.i.d., on 08/07 it was reduced to 20 mg IV b.i.d. states the swelling has improved, CRP decreased from 13.9 on 08/07 to 7.7 today, her kidney function stable, today patient working with physical therapy still requiring assistance with ADLs will continue present managed reassess tomorrow and further recommendation to follow. 08/09 patient states feeling better denies any complaint chest pain shortness of palpitation and states lower extremity swelling and erythema is better, however patient continued to have bradycardia we are holding metoprolol will continue amiodarone and lisinopril, patient is clinically stable will consult feed inspection supervisor further recommendation, patient had been diuresed with Lasix 80 mg b.i.d. and was reduced to 20 mg b.i.d., for cellulitis patient is being treated vancomycin and ceftriaxone clinical symptoms are improving and CRP is trending down. will continue and monitor patient. Patient is participating in PT OT. Today patient was seen by feed inspection supervisor as patient has A. Fib with bradycardia, recommended to stop amiodarone and continue low dose metoprolol, ordered extra dose of IV lasix 40mg 1x, with IV lasix 20mg BID, also ordered cardiac echo to further evaluate cardiac functions, patient stats she is feeling better has no c/o of CP, SOB,or palpitation, her lower extremities cellulitis is improving. will continue to monitor and continue PT/OT and further recommendations to follow. (2) Cellulitis: Qualifiers: Laterality: left Site of cellulitis: extremity Site of cellulitis of extremity: lower extremity Qualified Code(s): L03.116 - Cellulitis of left lower limb Code(s): L03.90 - Cellulitis, unspecified Status: Acute Assessment and Plan: LLE vanco/ceftriaxone 08/07 CRP 13.9 imrpoving slowly (3) Acute respiratory failure with hypoxia: Code(s): J96.01 - Acute respiratory failure with hypoxia Status: Acute Assessment and Plan: Current 2 LPM [place] is her baseline oxygen use at home cont to monitor closely (4) Community acquired pneumonia: Qualifiers: Laterality: unspecified laterality Qualified Code(s): J18.9 - Pneumonia, unspecified organism Code(s): J18.9 - Pneumonia, unspecified organism Status: Acute Assessment and Plan: possible, but more likely CHF ceftriaxone (5) Paroxysmal atrial fibrillation: Code(s): I48.0 - Paroxysmal atrial fibrillation Status: Chronic Assessment and Plan: continue Xarelto and metoprolol (6) Obstructive sleep apnea on CPAP: Code(s): G47.33 - Obstructive sleep apnea (adult) (pediatric); Z99.89 - Dependence on other enabling machines and devices Status: Chronic Assessment and Plan: F/u as outpatient (7) Hypothyroidism (acquired): Code(s): E03.9 - Hypothyroidism, unspecified Status: Acute Assessment and Plan: Continue levothyroxine 175mc po daily TSH and free T4 and TT3 suggest possible noncompliance (8) Thrombocytopenia: Code(s): D69.6 - Thrombocytopenia, unspecified Status: Acute Assessment and Plan: Possibly related to acute infection B12 low NL range, check MMA Monitor (9) Anemia: Qualifiers: Anemia
--- NOTE | 2020-08-10 15:03 | PC.NURSE ---
On 08/10/20, the student, [Marcia Christianson ], provided care and completed [facility] documentation on this patient. I have reviewed the student's documentation and agree with the findings.
[2020-08-10] MEDS: RIVAROXABAN 20 MG TABLET PO (18:18)
[2020-08-10 19:46] LABS: Vancomycin Trough 16.1 ug/mL (10.0-20.0)
[2020-08-10] MEDS: rOPINIRole HCL 0.25 MG TABLET PO (21:06)
[2020-08-10] MEDS: PRAMIPEXOLE 1 MG TABLET PO (21:06)
[2020-08-10] MEDS: traZODone HCL 50 MG TABLET 200 MG PO (21:06)
[2020-08-10] MEDS: MIRTAZAPINE SOLTAB 15 MG TAB.DISPER PO (21:06)
[2020-08-10] MEDS: DULoxetine HCL 30 MG CAPSULE.DR PO (21:06)
[2020-08-10] MEDS: clonazePAM (*CRX) 0.5 MG TABLET 1 MG PO (21:55)
[2020-08-11] VITALS (13 sets, daily range): BP systolic 116–118; BP diastolic 42–48; PULSE 48–90; RESP 15–20; TEMP 36.2–36.8; O2SAT 95–98
[2020-08-11 06:05] LABS: Hematocrit 29.2 % (37.0-47.0); Hemoglobin 9.4 g/dL (12.0-15.0); Mean Corpuscular HGB Conc 32.2 g/dl (32-36); Mean Corpuscular Hemoglobin 33.1 pg (26-34); Mean Corpuscular Volume 102.8 fl (80-100); Mean Platelet Volume 9.4 fl (7.4-10.4); Platelet Count Result 250 k/mm3 (150-375); Red Blood Count 2.84 M/mm3 (4.2-5.4); Red Cell Distribution Width 14.9 % (11.5-14.5)
[2020-08-11] MEDS: LEVOTHYROXINE SODIUM 75 MCG TABLET PO (06:19)
[2020-08-11] MEDS: LEVOTHYROXINE SODIUM 100 MCG TABLET PO (06:19)
[2020-08-11 06:22] LABS: Anion Gap 1 mmol/L (8-16); Blood Urea Nitrogen 23 mg/dL (7-17); Calcium 8.9 mg/dL (8.4-10.2); Carbon Dioxide 39 mmol/L (22-30); Chloride 97 mmol/L (98-107); Estimated CRCL calculation 45 ml/min; Estimated Glomerular Filt Rate 48; Glucose 91 mg/dL (65-105); Potassium 4.3 mmol/L (3.4-5.0); Sodium 137 mmol/L (137-145)
[2020-08-11] MEDS: CHOLECALCIFEROL 1,000 UNITS TABLET 2000 UNITS PO (08:50)
[2020-08-11] MEDS: VALSARTAN 160 MG TABLET 320 MG PO (08:50)
[2020-08-11] MEDS: METOPROLOL TARTRATE 12.5 MG TABLET PO ×2 (08:51→21:11)
[2020-08-11] MEDS: PANTOPRAZOLE 40 MG TABLET PO (08:51)
[2020-08-11] MEDS: POTASSIUM CHLORIDE 20 MEQ TABLET.ER 40 MEQ PO ×2 (08:51→17:11)
[2020-08-11] MEDS: ATORVASTATIN 40 MG TABLET PO (08:52)
[2020-08-11] MEDS: GABAPENTIN 100 MG CAPSULE PO ×2 (08:52→21:11)
[2020-08-11] MEDS: FUROSEMIDE INJ 40 MG/4 ML VIAL 20 MG IV PUSH ×3 (08:52→17:10)
[2020-08-11] MEDS: FERROUS GLUCONATE 324 MG TABLET PO (08:52)
[2020-08-11] MEDS: OPTI-GEN TAB 1 TABLET PO ×2 (08:52→17:11)
--- NOTE | 2020-08-11 09:07 | PM.PNCARD ---
Progress Note: A&P Assessment and Plan (1) Paroxysmal atrial fibrillation: Code(s): I48.0 - Paroxysmal atrial fibrillation Status: Chronic Assessment and Plan: 79-year-old female with paroxysmal atrial fibrillation on chronic anticoagulation with rivaroxaban, CHF with preserved ejection fraction, hypertension, chronic respiratory failure, CHARLES on CPAP/BiPAP, depression. Patient currently in sinus bradycardia with heart rates in 40s. Patient has underlying chronic respiratory failure. She has been on amiodarone. Due to underlying respiratory failure, would recommend discontinuation of amiodarone. Continue low-dose metoprolol with close monitoring of heart rate. Continue anticoagulation with rivaroxaban. Patient advised to follow-up with her primary confidential secretary after hospital discharge. (2) Sinus bradycardia: Code(s): R00.1 - Bradycardia, unspecified Status: Acute Assessment and Plan: Due to bradycardia and chronic respiratory failure, discontinue amiodarone. Continue low-dose metoprolol. (3) Acute exacerbation of CHF (congestive heart failure): Qualifiers: Heart failure type: unspecified Qualified Code(s): I50.9 - Heart failure, unspecified Code(s): I50.9 - Heart failure, unspecified Status: Acute Assessment and Plan: She diuresed well with the extra dose of furosemide yesterday. Will give her an extra 20 mg IV Lasix today. Recommend transition to her home dose of furosemide tomorrow and then she is okay for discharge from my perspective (4) Cellulitis: Qualifiers: Laterality: left Site of cellulitis: extremity Site of cellulitis of extremity: lower extremity Qualified Code(s): L03.116 - Cellulitis of left lower limb Code(s): L03.90 - Cellulitis, unspecified Status: Acute Assessment and Plan: Management as per primary team with appropriate antibiotics. Subjective Date/time seen: 08/11/20 09:07 Interval history: Patient with bilateral lower extremity cellulitis being treated ceftriaxone and vancomycin patient states the pain and swelling and redness has improving, patient admitted with lower extremity edema most diuresed with IV Lasix 80 mg b.i.d., on 08/07 it was reduced to 20 mg IV b.i.d. states the swelling has improved, CRP decreased from 13.9 on 08/07 to 7.7 today, her kidney function stable, today patient working with physical therapy still requiring assistance with ADLs will continue present managed reassess tomorrow and further recommendation to follow Date of service 08/11/2020: She feels better today. Less short of breath. Legs are less swollen. No syncope. No chest pain Review of Systems Review of Systems: All systems reviewed & are unremarkable except as noted in HPI and below Constitutional: Constitutional: Denies headache(s) and Denies weakness Eyes: Eyes: Denies blurry vision ENT: Reports Normal hearing present and Denies headache(s) Cardiovascular: Cardiovascular: Denies chest pain, Reports leg edema and Reports dyspnea Respiratory: Respiratory: Reports dyspnea Gastrointestinal: Gastrointestinal: Denies abdominal pain Genitourinary: Genitourinary: Denies hematuria Musculoskeletal: Musculoskeletal: Denies arthralgias Integumentary/Breasts: Skin/Breast: Denies dry skin and Reports erythema Neurologic: Reports Normal hearing present, Denies headache(s) and Denies weakness Psychiatric: Psychiatric: Denies anxiety Endocrine: Endocrine: Denies change in body appearance Hematologic/Lymphatic: Hematologic/Lymphatic: Denies easy bruising Allergic/Immunologic: Allergic/Immunologic: Denies GI upset with certain foods Exam Narrative: Exam Narrative: PHYSICAL EXAMINATION: GENERAL: Obese, sitting up in the chair, Alert, oriented, no acute distress MENTAL STATUS: affect appropriate to mood EYES: Extraocular movements intact, no pallor EARS: External ears appear normal, hearing grossly normal NOSE: N
[2020-08-11] MEDS: LOPERAMIDE HCL 2 MG CAPSULE PO (09:09)
[2020-08-11 09:39] LABS: Methylmalonic Acid 249 nmol/L (87-318)
[2020-08-11] MEDS: oxyCODONE/ACETAMINOPHEN (*CRX) 5-325 MG TABLET 1 TABLET PO ×2 (10:36→19:36)
--- NOTE | 2020-08-11 10:54 | PM.IMPN ---
Progress Note: A&P Assessment and Plan (1) Acute exacerbation of CHF (congestive heart failure): Qualifiers: Heart failure type: unspecified Qualified Code(s): I50.9 - Heart failure, unspecified Code(s): I50.9 - Heart failure, unspecified Status: Acute Assessment and Plan: 08/07 Seems close to baseline 08/07 Reduce furosemide from 80mg bid to 20mg bid IV (home dose is 40mg PO BID) Salt restriction Fluid restriction 1200 cc per day 08/11/20 10:54 Patient with bilateral lower extremity cellulitis being treated ceftriaxone and vancomycin patient states the pain and swelling and redness has improving, patient admitted with lower extremity edema most diuresed with IV Lasix 80 mg b.i.d., on 08/07 it was reduced to 20 mg IV b.i.d. states the swelling has improved, CRP decreased from 13.9 on 08/07 to 7.7 today, her kidney function stable, today patient working with physical therapy still requiring assistance with ADLs will continue present managed reassess tomorrow and further recommendation to follow. 08/09 patient states feeling better denies any complaint chest pain shortness of palpitation and states lower extremity swelling and erythema is better, however patient continued to have bradycardia we are holding metoprolol will continue amiodarone and lisinopril, patient is clinically stable will consult gas engine mechanic further recommendation, patient had been diuresed with Lasix 80 mg b.i.d. and was reduced to 20 mg b.i.d., for cellulitis patient is being treated vancomycin and ceftriaxone clinical symptoms are improving and CRP is trending down. will continue and monitor patient. Patient is participating in PT OT. 08/10 patient was seen by gas engine mechanic as patient has A. Fib with bradycardia, recommended to stop amiodarone and continue low dose metoprolol, ordered extra dose of IV lasix 40mg 1x, with IV lasix 20mg BID, also ordered cardiac echo to further evaluate cardiac functions, patient stats she is feeling better has no c/o of CP, SOB,or palpitation, her lower extremities cellulitis is improving. will continue to monitor and continue PT/OT and further recommendations to follow. 08/11 patient was seen by her gas engine mechanic recommended to stop amiodorane, and continue low dose metoprolol, had cardiac echo, patient has preserved LV function with EF of 65% and normal diastolic function, gas engine mechanic added IV lasix 20mg on current regiment of 20mg BID, patient diuresing well, continue to monitor and possibly discharge her tomorrow. (2) Cellulitis: Qualifiers: Laterality: left Site of cellulitis: extremity Site of cellulitis of extremity: lower extremity Qualified Code(s): L03.116 - Cellulitis of left lower limb Code(s): L03.90 - Cellulitis, unspecified Status: Acute Assessment and Plan: LLE vanco/ceftriaxone 08/07 CRP 13.9 imrpoving slowly (3) Acute respiratory failure with hypoxia: Code(s): J96.01 - Acute respiratory failure with hypoxia Status: Acute Assessment and Plan: Current 2 LPM [place] is her baseline oxygen use at home cont to monitor closely (4) Community acquired pneumonia: Qualifiers: Laterality: unspecified laterality Qualified Code(s): J18.9 - Pneumonia, unspecified organism Code(s): J18.9 - Pneumonia, unspecified organism Status: Acute Assessment and Plan: possible, but more likely CHF ceftriaxone (5) Paroxysmal atrial fibrillation: Code(s): I48.0 - Paroxysmal atrial fibrillation Status: Chronic Assessment and Plan: continue Xarelto and metoprolol (6) Obstructive sleep apnea on CPAP: Code(s): G47.33 - Obstructive sleep apnea (adult) (pediatric); Z99.89 - Dependence on other enabling machines and devices Status: Chronic Assessment and Plan: F/u as outpatient (7) Hypothyroidism (acquired): Code(s): E03.9 - Hypothyroidism, unspecified Status: Acute Assessment
--- NOTE | 2020-08-11 11:15 | PCNWS ---
Weekly nutritional screen. Patient is tolerating current diet with adequate intake. No weight loss reported. No nutritional needs at this time.
[2020-08-11] MEDS: PROMETHAZINE HCL 25 MG/ML AMPUL 12.5 MG IV PUSH (15:32)
[2020-08-11] MEDS: RIVAROXABAN 20 MG TABLET PO (17:12)
[2020-08-11] MEDS: clonazePAM (*CRX) 0.5 MG TABLET 1 MG PO (21:10)
[2020-08-11] MEDS: MIRTAZAPINE SOLTAB 15 MG TAB.DISPER PO (21:10)
[2020-08-11] MEDS: traZODone HCL 50 MG TABLET 200 MG PO (21:10)
[2020-08-11] MEDS: PRAMIPEXOLE 1 MG TABLET PO (21:11)
[2020-08-11] MEDS: rOPINIRole HCL 0.25 MG TABLET PO (21:11)
[2020-08-11] MEDS: DULoxetine HCL 30 MG CAPSULE.DR PO (21:11)
[2020-08-12] VITALS (17 sets, daily range): BP systolic 107–130; BP diastolic 46–67; PULSE 47–74; RESP 15–18; TEMP 36.6–36.9; O2SAT 92–96
[2020-08-12 05:08] LABS: Hematocrit 29.6 % (37.0-47.0); Hemoglobin 9.5 g/dL (12.0-15.0); Mean Corpuscular HGB Conc 32.1 g/dl (32-36); Mean Corpuscular Hemoglobin 32.6 pg (26-34); Mean Corpuscular Volume 101.7 fl (80-100); Mean Platelet Volume 9.1 fl (7.4-10.4); Platelet Count Result 297 k/mm3 (150-375); Red Blood Count 2.91 M/mm3 (4.2-5.4); Red Cell Distribution Width 15.3 % (11.5-14.5); White Blood Count 7.9 K/mm3 (4.5-10.0)
[2020-08-12 05:26] LABS: Anion Gap 2 mmol/L (8-16); Blood Urea Nitrogen 27 mg/dL (7-17); Calcium 8.9 mg/dL (8.4-10.2); Carbon Dioxide 36 mmol/L (22-30); Chloride 98 mmol/L (98-107); Estimated CRCL calculation 48 ml/min; Estimated Glomerular Filt Rate 54; Glucose 99 mg/dL (65-105); Potassium 4.8 mmol/L (3.4-5.0); Sodium 136 mmol/L (137-145)
[2020-08-12] MEDS: LEVOTHYROXINE SODIUM 100 MCG TABLET PO (06:30)
[2020-08-12] MEDS: LEVOTHYROXINE SODIUM 75 MCG TABLET PO (06:30)
[2020-08-12] MEDS: FUROSEMIDE INJ 40 MG/4 ML VIAL 20 MG IV PUSH (08:18)
[2020-08-12] MEDS: oxyCODONE/ACETAMINOPHEN (*CRX) 5-325 MG TABLET 1 TABLET PO ×2 (08:19→17:23)
[2020-08-12] MEDS: METOPROLOL TARTRATE 12.5 MG TABLET PO ×2 (08:19→20:11)
[2020-08-12] MEDS: OPTI-GEN TAB 1 TABLET PO ×2 (08:20→17:04)
[2020-08-12] MEDS: PANTOPRAZOLE 40 MG TABLET PO (08:20)
[2020-08-12] MEDS: FERROUS GLUCONATE 324 MG TABLET PO (08:20)
[2020-08-12] MEDS: GABAPENTIN 100 MG CAPSULE PO ×2 (08:20→20:12)
[2020-08-12] MEDS: ATORVASTATIN 40 MG TABLET PO (08:20)
[2020-08-12] MEDS: POTASSIUM CHLORIDE 20 MEQ TABLET.ER 40 MEQ PO ×2 (08:21→17:03)
[2020-08-12] MEDS: CHOLECALCIFEROL 1,000 UNITS TABLET 2000 UNITS PO (08:21)
[2020-08-12] MEDS: VALSARTAN 160 MG TABLET 320 MG PO (08:21)
[2020-08-12] MEDS: clonazePAM (*CRX) 0.5 MG TABLET 1 MG PO (10:50)
--- NOTE | 2020-08-12 11:33 | PM.IMPN ---
Progress Note: A&P Assessment and Plan (1) Acute exacerbation of CHF (congestive heart failure): Qualifiers: Heart failure type: unspecified Qualified Code(s): I50.9 - Heart failure, unspecified Code(s): I50.9 - Heart failure, unspecified Status: Acute Assessment and Plan: 08/07 Seems close to baseline 08/07 Reduce furosemide from 80mg bid to 20mg bid IV (home dose is 40mg PO BID) Salt restriction Fluid restriction 1200 cc per day 08/12/20 11:33 Patient with bilateral lower extremity cellulitis being treated ceftriaxone and vancomycin patient states the pain and swelling and redness has improving, patient admitted with lower extremity edema most diuresed with IV Lasix 80 mg b.i.d., on 08/07 it was reduced to 20 mg IV b.i.d. states the swelling has improved, CRP decreased from 13.9 on 08/07 to 7.7 today, her kidney function stable, today patient working with physical therapy still requiring assistance with ADLs will continue present managed reassess tomorrow and further recommendation to follow. 08/09 patient states feeling better denies any complaint chest pain shortness of palpitation and states lower extremity swelling and erythema is better, however patient continued to have bradycardia we are holding metoprolol will continue amiodarone and lisinopril, patient is clinically stable will consult electric solderer further recommendation, patient had been diuresed with Lasix 80 mg b.i.d. and was reduced to 20 mg b.i.d., for cellulitis patient is being treated vancomycin and ceftriaxone clinical symptoms are improving and CRP is trending down. will continue and monitor patient. Patient is participating in PT OT. 08/10 patient was seen by electric solderer as patient has A. Fib with bradycardia, recommended to stop amiodarone and continue low dose metoprolol, ordered extra dose of IV lasix 40mg 1x, with IV lasix 20mg BID, also ordered cardiac echo to further evaluate cardiac functions, patient stats she is feeling better has no c/o of CP, SOB,or palpitation, her lower extremities cellulitis is improving. will continue to monitor and continue PT/OT and further recommendations to follow. 08/11 patient was seen by her electric solderer recommended to stop amiodorane, and continue low dose metoprolol, had cardiac echo, patient has preserved LV function with EF of 65% and normal diastolic function, electric solderer added IV lasix 20mg on current regiment of 20mg BID, patient diuresing well, continue to monitor and possibly discharge her tomorrow. 08/12 Patient is off patient is off amiodarone for 4 days now and on low-dose metoprolol 12.5 mg b.i.d. patient still bradycardia, today patient complains or shortness of breath and feeling tired, seen by Cardiology recommending monitor patient 1 more and further recommendation to follow, patient be seen PT OT. hopefully will discharge the patient tomorrow. (2) Cellulitis: Qualifiers: Laterality: left Site of cellulitis: extremity Site of cellulitis of extremity: lower extremity Qualified Code(s): L03.116 - Cellulitis of left lower limb Code(s): L03.90 - Cellulitis, unspecified Status: Acute Assessment and Plan: LLE vanco/ceftriaxone 08/07 CRP 13.9 imrpoving slowly (3) Acute respiratory failure with hypoxia: Code(s): J96.01 - Acute respiratory failure with hypoxia Status: Acute Assessment and Plan: Current 2 LPM [place] is her baseline oxygen use at home cont to monitor closely (4) Community acquired pneumonia: Qualifiers: Laterality: unspecified laterality Qualified Code(s): J18.9 - Pneumonia, unspecified organism Code(s): J18.9 - Pneumonia, unspecified organism Status: Acute Assessment and Plan: possible, but more likely CHF ceftriaxone (5) Paroxysmal atrial fibrillation: Code(s): I48.0 - Paroxysmal atrial fibrillation Status: Chronic Assessment and Plan: continue Xarelto and metoprolo
--- NOTE | 2020-08-12 13:44 | PM.PNCARD ---
Progress Note: A&P Assessment and Plan (1) Paroxysmal atrial fibrillation: Code(s): I48.0 - Paroxysmal atrial fibrillation Status: Chronic Assessment and Plan: 79-year-old female with paroxysmal atrial fibrillation on chronic anticoagulation with rivaroxaban, CHF with preserved ejection fraction, hypertension, chronic respiratory failure, CHARLES on CPAP/BiPAP, depression. Patient currently in sinus bradycardia with heart rates in 40s. Patient has underlying chronic respiratory failure. She has been on amiodarone. Due to underlying respiratory failure, would recommend discontinuation of amiodarone. Continue low-dose metoprolol with close monitoring of heart rate. Continue anticoagulation with rivaroxaban. Patient advised to follow-up with her primary fish roe technician after hospital discharge. (2) Sinus bradycardia: Code(s): R00.1 - Bradycardia, unspecified Status: Acute Assessment and Plan: Due to bradycardia and chronic respiratory failure, discontinue amiodarone. Continue low-dose metoprolol. (3) Acute exacerbation of CHF (congestive heart failure): Qualifiers: Heart failure type: unspecified Qualified Code(s): I50.9 - Heart failure, unspecified Code(s): I50.9 - Heart failure, unspecified Status: Acute Assessment and Plan: She diuresed well with the extra dose of furosemide yesterday. DC IV Lasix. Resume her home dose of furosemide 80 mg daily (4) Cellulitis: Qualifiers: Laterality: left Site of cellulitis: extremity Site of cellulitis of extremity: lower extremity Qualified Code(s): L03.116 - Cellulitis of left lower limb Code(s): L03.90 - Cellulitis, unspecified Status: Acute Assessment and Plan: Management as per primary team with appropriate antibiotics. Subjective Date/time seen: 08/12/20 13:44 Interval history: Patient with bilateral lower extremity cellulitis being treated ceftriaxone and vancomycin patient states the pain and swelling and redness has improving, patient admitted with lower extremity edema most diuresed with IV Lasix 80 mg b.i.d., on 08/07 it was reduced to 20 mg IV b.i.d. states the swelling has improved, CRP decreased from 13.9 on 08/07 to 7.7 today, her kidney function stable, today patient working with physical therapy still requiring assistance with ADLs will continue present managed reassess tomorrow and further recommendation to follow Date of service 08/11/2020: She feels better today. Less short of breath. Legs are less swollen. No syncope. No chest pain Date of service 08/12/2020: She is less swollen but she does not want to go home today. She feels a little short of breath. No chest pain Review of Systems Review of Systems: All systems reviewed & are unremarkable except as noted in HPI and below Constitutional: Constitutional: Denies headache(s) and Denies weakness Eyes: Eyes: Denies blurry vision ENT: Reports Normal hearing present and Denies headache(s) Cardiovascular: Cardiovascular: Denies chest pain, Reports leg edema and Reports dyspnea Respiratory: Respiratory: Reports dyspnea Gastrointestinal: Gastrointestinal: Denies abdominal pain Genitourinary: Genitourinary: Denies hematuria Musculoskeletal: Musculoskeletal: Denies arthralgias Integumentary/Breasts: Skin/Breast: Denies dry skin and Reports erythema Neurologic: Reports Normal hearing present, Denies headache(s) and Denies weakness Psychiatric: Psychiatric: Denies anxiety Endocrine: Endocrine: Denies change in body appearance Hematologic/Lymphatic: Hematologic/Lymphatic: Denies easy bruising Allergic/Immunologic: Allergic/Immunologic: Denies GI upset with certain foods Exam Narrative: Exam Narrative: PHYSICAL EXAMINATION: GENERAL: Obese, sitting up in the chair, Alert, oriented, no acute distress MENTAL STATUS: affect appropriate to mood EYES: Extraocular movements intact, no pallor EARS: External ears andi
[2020-08-12] MEDS: RIVAROXABAN 20 MG TABLET PO (17:04)
[2020-08-12] MEDS: traZODone HCL 50 MG TABLET 200 MG PO (20:11)
[2020-08-12] MEDS: MIRTAZAPINE SOLTAB 15 MG TAB.DISPER PO (20:11)
[2020-08-12] MEDS: rOPINIRole HCL 0.25 MG TABLET PO (20:12)
[2020-08-12] MEDS: DULoxetine HCL 30 MG CAPSULE.DR PO (20:12)
[2020-08-12] MEDS: PRAMIPEXOLE 1 MG TABLET PO (20:12)
[2020-08-12 20:35] LABS: Vancomycin Trough 10.1 ug/mL (10.0-20.0)
[2020-08-13] VITALS (7 sets, daily range): BP systolic 103; BP diastolic 50; PULSE 51–57; RESP 15–18; TEMP 36.2; O2SAT 92–96
--- NOTE | 2020-08-13 02:59 | PC.NURSE ---
unable to obtain periperal IV access on pt. 2100 dose of IV vancomycin not given. Dr. Allison and housekeeper/custodian/laundry worker aware
[2020-08-13] MEDS: LEVOTHYROXINE SODIUM 75 MCG TABLET PO (06:01)
[2020-08-13] MEDS: LEVOTHYROXINE SODIUM 100 MCG TABLET PO (06:01)
[2020-08-13 06:07] LABS: Hematocrit 31.8 % (37.0-47.0); Mean Corpuscular HGB Conc 31.4 g/dl (32-36); Mean Corpuscular Hemoglobin 33.1 pg (26-34); Mean Corpuscular Volume 105.3 fl (80-100); Mean Platelet Volume 10.6 fl (7.4-10.4); Platelet Count Result 277 k/mm3 (150-375); Red Blood Count 3.02 M/mm3 (4.2-5.4); Red Cell Distribution Width 15.8 % (11.5-14.5); White Blood Count 7.2 K/mm3 (4.5-10.0)
[2020-08-13 07:10] LABS: Anion Gap 2 mmol/L (8-16); Blood Urea Nitrogen 30 mg/dL (7-17); Carbon Dioxide 37 mmol/L (22-30); Chloride 98 mmol/L (98-107); Estimated CRCL calculation 53 ml/min; Estimated Glomerular Filt Rate > 60; Glucose 91 mg/dL (65-105); Potassium 4.6 mmol/L (3.4-5.0); Sodium 137 mmol/L (137-145)
[2020-08-13] MEDS: oxyCODONE/ACETAMINOPHEN (*CRX) 5-325 MG TABLET 1 TABLET PO (07:48)
[2020-08-13] MEDS: METOPROLOL TARTRATE 12.5 MG TABLET PO (07:51)
[2020-08-13] MEDS: PANTOPRAZOLE 40 MG TABLET PO (07:51)
[2020-08-13] MEDS: POTASSIUM CHLORIDE 20 MEQ TABLET.ER 40 MEQ PO (07:54)
[2020-08-13] MEDS: CHOLECALCIFEROL 1,000 UNITS TABLET 2000 UNITS PO (07:54)
[2020-08-13] MEDS: OPTI-GEN TAB 1 TABLET PO (07:54)
[2020-08-13] MEDS: GABAPENTIN 100 MG CAPSULE PO (07:54)
[2020-08-13] MEDS: ATORVASTATIN 40 MG TABLET PO (07:54)
[2020-08-13] MEDS: VALSARTAN 160 MG TABLET 320 MG PO (07:55)
[2020-08-13] MEDS: FERROUS GLUCONATE 324 MG TABLET PO (07:55)
[2020-08-13] MEDS: ONDANSETRON HCL ODT 4 MG TABLET PO (10:14)
--- NOTE | 2020-08-13 10:18 | PM.DS ---
DS: Admitting Diagnosis Admitting Diagnosis Admitting Diagnosis: Chief Complaint: Left leg pain DS: Discharge Diagnosis Discharge Diagnosis (1) Acute exacerbation of CHF (congestive heart failure): Qualifiers: Heart failure type: unspecified Qualified Code(s): I50.9 - Heart failure, unspecified Code(s): I50.9 - Heart failure, unspecified Status: Acute Assessment and Plan: 08/07 Seems close to baseline 08/07 Reduce furosemide from 80mg bid to 20mg bid IV (home dose is 40mg PO BID) Salt restriction Fluid restriction 1200 cc per day 08/12/20 11:33 Patient with bilateral lower extremity cellulitis being treated ceftriaxone and vancomycin patient states the pain and swelling and redness has improving, patient admitted with lower extremity edema most diuresed with IV Lasix 80 mg b.i.d., on 08/07 it was reduced to 20 mg IV b.i.d. states the swelling has improved, CRP decreased from 13.9 on 08/07 to 7.7 today, her kidney function stable, today patient working with physical therapy still requiring assistance with ADLs will continue present managed reassess tomorrow and further recommendation to follow. 08/09 patient states feeling better denies any complaint chest pain shortness of palpitation and states lower extremity swelling and erythema is better, however patient continued to have bradycardia we are holding metoprolol will continue amiodarone and lisinopril, patient is clinically stable will consult splitting machine operator further recommendation, patient had been diuresed with Lasix 80 mg b.i.d. and was reduced to 20 mg b.i.d., for cellulitis patient is being treated vancomycin and ceftriaxone clinical symptoms are improving and CRP is trending down. will continue and monitor patient. Patient is participating in PT OT. 08/10 patient was seen by splitting machine operator as patient has A. Fib with bradycardia, recommended to stop amiodarone and continue low dose metoprolol, ordered extra dose of IV lasix 40mg 1x, with IV lasix 20mg BID, also ordered cardiac echo to further evaluate cardiac functions, patient stats she is feeling better has no c/o of CP, SOB,or palpitation, her lower extremities cellulitis is improving. will continue to monitor and continue PT/OT and further recommendations to follow. 08/11 patient was seen by her splitting machine operator recommended to stop amiodorane, and continue low dose metoprolol, had cardiac echo, patient has preserved LV function with EF of 65% and normal diastolic function, splitting machine operator added IV lasix 20mg on current regiment of 20mg BID, patient diuresing well, continue to monitor and possibly discharge her tomorrow. 08/12 Patient is off patient is off amiodarone for 4 days now and on low-dose metoprolol 12.5 mg b.i.d. patient still bradycardia, today patient complains or shortness of breath and feeling tired, seen by Cardiology recommending monitor patient 1 more and further recommendation to follow, patient be seen PT OT. hopefully will discharge the patient tomorrow. (2) Cellulitis: Qualifiers: Laterality: left Site of cellulitis: extremity Site of cellulitis of extremity: lower extremity Qualified Code(s): L03.116 - Cellulitis of left lower limb Code(s): L03.90 - Cellulitis, unspecified Status: Acute Assessment and Plan: LLE vanco/ceftriaxone 08/07 CRP 13.9 imrpoving slowly (3) Acute respiratory failure with hypoxia: Code(s): J96.01 - Acute respiratory failure with hypoxia Status: Acute Assessment and Plan: Current 2 LPM [place] is her baseline oxygen use at home cont to monitor closely (4) Community acquired pneumonia: Qualifiers: Laterality: unspecified laterality Qualified Code(s): J18.9 - Pneumonia, unspecified organism Code(s): J18.9 - Pneumonia, unspecified organism Status: Acute Assessment and Plan: possible, but more likely CHF ceftriaxone (5) Paroxysmal atrial fibrillation: Code(s): I48.0 - Paroxysm
== END 2020-08-13 13:15 | disposition home or self-care (01) | DRG 602 ==
LOC: ANHED 18:31 → ANH2MED 08-05 01:31
PROVIDERS: Internal Medicine; Nurse Practitioner; Physician Assistant Medical; Admitting Provider Internal Medicine; Emergency Provider Emergency Medicine; PCP Internal Medicine; Visit Provider Family Medicine
DX: L03.116 Cellulitis of left lower limb (principal); J18.9 Pneumonia, unspecified organism; J96.21 Acute and chronic respiratory failure with hypoxia; I50.33 Acute on chronic diastolic (congestive) heart failure; I11.0 Hypertensive heart disease with heart failure; Z86.16 Personal history of COVID-19; G47.33 Obstructive sleep apnea (adult) (pediatric); D69.6 Thrombocytopenia, unspecified; D64.9 Anemia, unspecified; E03.9 Hypothyroidism, unspecified; I48.0 Paroxysmal atrial fibrillation; Z79.01 Long term (current) use of anticoagulants; R00.1 Bradycardia, unspecified; L03.115 Cellulitis of right lower limb
CPT/HCPCS: 36415; 36600; 71045; 73562; 73600; 80048; 80053; 80202; 82274; 82607; 82746; 82805; 83540; 83550; 83605; 83735; 83880; 83921; 84132; 84439; 84443; 84480; 85025; 85027; 85046; 85610; 85730; 86140; 87040; 93005; 93306; 93971; 94002; 94003; 94640; 94660; 96372; 97110; 97116; 97161; 97165; 97530; 97535; 99285; A9270; C1751; J0456; J0696; J1940; J2270; J2550; J3370

== ENCOUNTER 2020-10-14 21:00 | Observation (INO) | payer MEDICARE, SELFPAY ==
[2020-10-14] VITALS (8 sets, daily range): BP systolic 118–141; BP diastolic 59–76; PULSE 61–67; RESP 10–18; TEMP 36.7; O2SAT 98–100
--- NOTE | ~2020-10-14 | XR_ITS ---
XR chest 1V portable DATE: 10/14/2020 21:19 INDICATION: Shortness of breath for 2 days. Sternal tightness. Cough. TECHNIQUE: Portable upright AP chest on 10/2020 at 2120 hours COMPARISON: 08/05/2020 portable AP chest 04/12/2020 portable AP chest FINDINGS: Cardiomegaly. Aortic arch calcification. There is pulmonary vascular congestion and redistribution, prominence of the minor fissure, consisten t with congestive heart failure. There is prominent atelectasis and/or infiltrate in both lower lung zones. Diffuse osteopenia. IMPRESSION: Cardiomegaly, mild congestive heart failure Prominent infiltrate and/atelectasis in the lower lung zones Reviewed, dictated and finalized at location A.
--- NOTE | 2020-10-14 21:06 | ECG_ITS ---
Measurements Intervals [place] Rate: 68 P: 112 MS: 168 QRS: 45 QRSD: 84 T: 43 QT: 402 QTc: 430 Interpretive Statements SINUS RHYTHM EARLY PRECORDIAL R/S TRANSITION BASELINE ARTIFACT- I, II, III, AVR, AVL, V1 BORDERLINE ECG Electronically Signed On 10-15-2020 6:36:16 CDT by Saji Lyons D.O.
--- NOTE | 2020-10-14 21:12 | ED.SOB ---
HPI - SOB/Dyspnea General Chief Complaint: Shortness of Breath/Dyspnea Stated Complaint: sob Time Seen by Provider: 10/14/20 21:04 Source: RN notes reviewed History of Present Illness HPI Narrative: Patient presents to emergency department from home via EMS for shortness of breath. Patient states she is chronically is on 2 L nasal cannula and states that for the past 4 days she has been feeling more short of breath. She states has been associate with a cough this been nonproductive as well as heaviness across her chest she denies any fevers or chills abdominal pain vomiting diarrhea or any other symptoms denies having any wheezing. States she has been taking her medications as prescribed patient is on blood thinner secondary to history of atrial fibrillation Related Data Home Medications Medication Instructions Recorded Confirmed PreserVision AREDS-2 1 tablet PO BID 02/16/20 08/04/20 Xarelto 20 mg PO DAILY 02/16/20 08/04/20 amiodarone 400 mg PO DAILY 02/16/20 08/04/20 atorvastatin 40 mg PO DAILY 02/16/20 08/04/20 biotin 10,000 mcg PO DAILY 02/16/20 08/04/20 bupropion HCl 150 mg PO BID 02/16/20 08/04/20 calcium carbonate-vitamin D3 1 cap PO DAILY 02/16/20 08/04/20 [Calcium 600 with Vitamin D3] cholecalciferol (vitamin D3) 50 mcg PO DAILY 02/16/20 08/04/20 [Vitamin D3] clonazepam 1 mg PO DAILY PRN 02/16/20 08/04/20 duloxetine 30 mg PO HS 02/16/20 08/04/20 esomeprazole magnesium 40 mg PO DAILY 02/16/20 08/04/20 ferrous gluconate 236 mg PO DAILY 02/16/20 08/04/20 furosemide 80 mg PO DAILY 02/16/20 08/04/20 gabapentin 100 mg PO BID 02/16/20 08/04/20 mirtazapine 15 mg PO HS 02/16/20 08/04/20 oxycodone-acetaminophen 1 tablet PO Q6H PRN 02/16/20 08/04/20 potassium chloride 40 meq PO DAILY 02/16/20 08/04/20 ropinirole 0.25 mg PO HS 02/16/20 08/04/20 trazodone 200 mg PO HS 02/16/20 08/04/20 trospium 20 mg PO BID 02/16/20 08/04/20 valsartan 320 mg PO DAILY 02/16/20 08/04/20 levothyroxine 150 mcg PO DAILY 02/17/20 08/05/20 pramipexole 1 mg PO HS 08/04/20 08/04/20 Allergies Allergy/AdvReac Type Severity Reaction Status Date / Time Sulfa (Sulfonamide Allergy Unknown unknown Verified 10/14/20 21:09 Antibiotics) Review of Systems Review of Systems: Narrative: Gen.: Denies fevers or chills ENT: Denies congestion Respiratory: Reports shortness of breath and cough CV: Reports chest heaviness denies palpitations GI: Denies abdominal pain nausea, emesis or diarrhea Musculoskeletal: Denies back pain or muscle pain Neuro: Denies numbness, tingling, weakness or focal weakness Skin: Denies rash Except as documented, all other systems reviewed and negative PMFSH Past Medical History Medical History Anemia Anxiety Chronic diastolic congestive heart failure Echocardiogram in October 2018 demonstrated hyperdynamic left ventricular function with an ejection fraction of 71%, moderate left atrial enlargement, and grade 2 diastolic dysfunction. Chronic pain syndrome Chronic wound infection of abdomen On long-term doxycycline b.i.d. 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 Depression Essential hypertension Gastroesophageal reflux disease Hyperlipidemia Hypothyroidism (acquired) Macular degeneration Morbid obesity Obstructive sleep apnea on CPAP Overactive bladder Paroxysmal atrial fibrillation On Xarelto for stroke prophylaxis. Pneumonia due to COVID-19 virus (~03/2020) Postsurgical hypothyroidism Restless leg syndrome Shingles Thyroid cancer Status post thyroidectomy. Surgical History Surgical History H/O bilateral cataract extraction History of appendectomy (~2003) Complicated postoperative course with chronic midline abdominal wound. History of hernia repair History of orthopedic surgery ORIF right lower extremity fracture. History of ovarian cystec
--- NOTE | 2020-10-14 22:08 | PC.NURSE ---
jeferson & alonzo rn attempted IV, no success. modesto rn in room at this time attempting IV w/ US.
[2020-10-14 22:28] LABS: Basophils Percent Auto 0.2 % (0.2-1.2); Eosinophils Absolute Auto 0.2 K/mm3 (0-0.3); Eosinophils Percent Auto 2.8 % (0-4.4); Hematocrit 29.1 % (37.0-47.0); Hemoglobin 9.3 g/dL (12.0-15.0); Immature Granulocyte Absolute 0.05 K/mm3 (0.00-0.031); Immature Granulocyte Percent A 0.8 % (0-0.5); Lymphocytes Absolute Auto 0.77 K/mm3 (0.9-3.2); Lymphocytes Percent Auto 12.7 % (18.3-44.2); Mean Corpuscular Hemoglobin 38.4 pg (26-34); Mean Corpuscular Volume 120.2 fl (80-100); Monocytes Absolute Auto 0.2 K/mm3 (0.1-0.6); Monocytes Percent Auto 2.8 % (2.6-8.5); Neutrophils Absolute Auto 4.9 K/mm3 (1.3-6.7); Neutrophils Percent Auto 80.7 % (45.5-73.1); Platelet Count Result 167 k/mm3 (150-375); Red Blood Count 2.42 M/mm3 (4.2-5.4); Red Cell Distribution Width 27.3 % (11.5-14.5); White Blood Count 6.1 K/mm3 (4.5-10.0)
[2020-10-14 22:37] LABS: INR 2.5; Prothrombin Time 27.9 Seconds (11.1-14.7)
[2020-10-14 22:38] LABS: Partial Thromboplastin Time 47.1 SECONDS (22.3-36.8)
[2020-10-14 22:48] LABS: Anion Gap 6 mmol/L (8-16); Blood Urea Nitrogen 19 mg/dL (7-17); Calcium 9.3 mg/dL (8.4-10.2); Carbon Dioxide 34 mmol/L (22-30); Chloride 99 mmol/L (98-107); Estimated CRCL calculation 47 ml/min; Estimated Glomerular Filt Rate 54; Glucose 101 mg/dL (65-105); Potassium 3.8 mmol/L (3.4-5.0); Sodium 139 mmol/L (137-145)
[2020-10-14 23:00] LABS: NT Pro B Type Natriuretic Pept 139 pg/mL (5-100); Troponin I < 0.012 ng/mL (0.000-0.034)
[2020-10-14] MEDS: ALBUTEROL SULFATE NEB 2.5 MG/0.5 ML INH 5 MG INHALATION (23:07)
[2020-10-14] MEDS: IPRATROPIUM BR 0.02% INH SOLN 0.5 MG/2.5 ML VIAL INHALATION (23:08)
--- NOTE | 2020-10-14 23:48 | PM.IMHP ---
H&P: HPI History of Present Illness Date/Time: 10/14/20 23:48 Chief Complaint: shortness of breath Narrative: Patient presents to emergency department from home via EMS for shortness of breath. Patient states she is chronically is on 2 L nasal cannula and states that for the past 4 days she has been feeling more short of breath. She states has been associate with a cough which has been non produtive, she also reports some heaviness across her chest. no fever, chills. no abdominal pain, nausea, vomiting, diarrhea. no wheezing aswell. she has hx of atrial fibrillation and is on xarelto for this. Review of Systems Review of Systems: Narrative: - CONSTITUTIONAL: Denies weight loss, fever and chills. - HEENT: Denies changes in vision and hearing - RESPIRATORY: reports SOB and mild cough. - CV: Denies palpitations and CP. - GI: Denies abdominal pain, nausea, vomiting and diarrhea. - : Denies dysuria and urinary frequency. - MSK: Denies myalgia and joint pain. - SKIN: Denies rash and pruritus. - NEUROLOGICAL: Denies headache and syncope. - PSYCHIATRIC: Denies recent changes in mood. Denies anxiety and depression. All systems reviewed & are unremarkable except as noted in HPI and below Constitutional: Constitutional: Reports fatigue and Reports weakness Neurologic: Reports weakness Endocrine: Endocrine: Reports fatigue PMFSH Past Medical History Medical History Anemia Anxiety Chronic diastolic congestive heart failure Echocardiogram in October 2018 demonstrated hyperdynamic left ventricular function with an ejection fraction of 71%, moderate left atrial enlargement, and grade 2 diastolic dysfunction. Chronic pain syndrome Chronic wound infection of abdomen On long-term doxycycline b.i.d. 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 Depression Essential hypertension Gastroesophageal reflux disease Hyperlipidemia Hypothyroidism (acquired) Macular degeneration Morbid obesity Obstructive sleep apnea on CPAP Overactive bladder Paroxysmal atrial fibrillation On Xarelto for stroke prophylaxis. Pneumonia due to COVID-19 virus (~03/2020) Postsurgical hypothyroidism Restless leg syndrome Shingles Thyroid cancer Status post thyroidectomy. Surgical History Surgical History H/O bilateral cataract extraction History of appendectomy (~2003) Complicated postoperative course with chronic midline abdominal wound. History of hernia repair History of orthopedic surgery ORIF right lower extremity fracture. History of ovarian cystectomy History of spinal surgery History of thyroidectomy History of total abdominal hysterectomy History of total bilateral knee replacement Family History Family History Mother Alzheimer's dementia Hypertension Father Acute myocardial infarction Sibling Hypertension Son Heart attack Social History Social History Social History: Surrogate decision maker: Prince Rogel, . Code status: Full code. Smoking status: Never smoker Second hand tobacco smoke exposure: No Alcohol intake: never Substance use: never Additional living arrangements comments: Lives in [place] with her . They have 3 children. Ambulates with a walker. Gender identity (if verbalized by the patient): Female Sexual Orientation (if Verbalized by the Patient): Straight or Heterosexual Spiritual care concerns: No Meds Home Medications and Allergies Home Medications Medication Instructions Recorded Confirmed Type PreserVision AREDS-2 1 tablet PO BID 02/16/20 08/04/20 History Xarelto 20 mg PO DAILY 02/16/20 08/04/20 History atorvastatin 40 mg PO DAILY 02/16/20 08/04/20 History bioti
[2020-10-15] VITALS (23 sets, daily range): BP systolic 120–139; BP diastolic 56–75; PULSE 57–69; RESP 12–18; TEMP 36.3–36.8; O2SAT 95–100; BMI 47.7
--- NOTE | 2020-10-15 00:08 | PC.NURSE ---
called to give report at this time, was told to call back in five minutes.
--- NOTE | 2020-10-15 00:30 | ADMGEN ---
This patient, Michelle Rogel, was admitted to Medical Room 349-01. Patient/family oriented to hospital policies and general routines including ID bracelet, bed and alarms, visiting hours, pain management, procedures, bathroom and other care routines, personal items, smoking policy, room service/diet, and visiting hours. Information on how to activate the Rapid Response Team has been discussed. Patient/Family are encouraged to report perceived risks to care and to ask questions if they do not understand what they are told or what they should do.
[2020-10-15] MEDS: IPRATROPIUM BR 0.02% INH SOLN 0.5 MG/2.5 ML VIAL INHALATION ×4 (01:03→19:53)
[2020-10-15] MEDS: ALBUTEROL SULFATE NEB 2.5 MG/0.5 ML INH 5 MG INHALATION ×4 (01:03→19:53)
[2020-10-15] MEDS: PRAMIPEXOLE 1 MG TABLET PO ×2 (01:40→20:55)
[2020-10-15] MEDS: DULoxetine HCL 30 MG CAPSULE.DR PO ×2 (01:40→20:56)
[2020-10-15] MEDS: traZODone HCL 50 MG TABLET 200 MG PO ×2 (01:40→20:54)
[2020-10-15] MEDS: MIRTAZAPINE SOLTAB 15 MG TAB.DISPER PO ×2 (01:56→20:56)
[2020-10-15 03:04] LABS: Troponin I < 0.012 ng/mL (0.000-0.034)
[2020-10-15 06:17] LABS: Basophils Percent Auto 0.2 % (0.2-1.2); Eosinophils Absolute Auto 0.1 K/mm3 (0-0.3); Eosinophils Percent Auto 2.4 % (0-4.4); Hematocrit 24.6 % (37.0-47.0); Hemoglobin 8.1 g/dL (12.0-15.0); Immature Granulocyte Absolute 0.05 K/mm3 (0.00-0.031); Immature Granulocyte Percent A 0.9 % (0-0.5); Lymphocytes Absolute Auto 0.77 K/mm3 (0.9-3.2); Lymphocytes Percent Auto 14.1 % (18.3-44.2); Mean Corpuscular HGB Conc 32.9 g/dl (32-36); Mean Corpuscular Hemoglobin 38.6 pg (26-34); Mean Corpuscular Volume 117.1 fl (80-100); Mean Platelet Volume 9.9 fl (7.4-10.4); Monocytes Absolute Auto 0.2 K/mm3 (0.1-0.6); Monocytes Percent Auto 2.7 % (2.6-8.5); Neutrophils Absolute Auto 4.4 K/mm3 (1.3-6.7); Neutrophils Percent Auto 79.7 % (45.5-73.1); Platelet Count Result 145 k/mm3 (150-375); Red Cell Distribution Width 26.9 % (11.5-14.5); White Blood Count 5.5 K/mm3 (4.5-10.0)
[2020-10-15 06:28] LABS: Anion Gap 6 mmol/L (8-16); Blood Urea Nitrogen 17 mg/dL (7-17); Calcium 8.7 mg/dL (8.4-10.2); Carbon Dioxide 32 mmol/L (22-30); Chloride 100 mmol/L (98-107); Estimated CRCL calculation 58 ml/min; Estimated Glomerular Filt Rate > 60; Glucose 97 mg/dL (65-105); Potassium 3.5 mmol/L (3.4-5.0); Sodium 138 mmol/L (137-145)
[2020-10-15] MEDS: LEVOTHYROXINE SODIUM 150 MCG TABLET PO (06:29)
[2020-10-15 06:38] LABS: Troponin I < 0.012 ng/mL (0.000-0.034)
[2020-10-15] MEDS: FERROUS GLUCONATE 324 MG TABLET PO (08:12)
[2020-10-15] MEDS: ATORVASTATIN 40 MG TABLET PO (08:13)
[2020-10-15] MEDS: PANTOPRAZOLE 40 MG TABLET PO (08:13)
[2020-10-15] MEDS: POTASSIUM CHLORIDE 20 MEQ TABLET.ER 40 MEQ PO (08:13)
[2020-10-15] MEDS: GABAPENTIN 100 MG CAPSULE PO ×2 (08:13→16:47)
[2020-10-15] MEDS: METHOTREXATE 2.5 MG TAB (*CHEMO) PO (08:13)
[2020-10-15] MEDS: OPTI-GEN TAB 1 TABLET PO (08:13)
[2020-10-15] MEDS: VALSARTAN 160 MG TABLET 320 MG PO (08:14)
[2020-10-15] MEDS: MIRABEGRON 25 MG ER TABLET PO (08:14)
[2020-10-15] MEDS: CHOLECALCIFEROL 1,000 UNITS TABLET 2000 UNITS PO ×2 (08:14→10:03)
[2020-10-15] MEDS: FAMOTIDINE 20 MG TABLET 40 MG PO (08:17)
--- NOTE | 2020-10-15 08:43 | PM.IMPN ---
Progress Note: A&P Assessment and Plan (1) Community acquired pneumonia: Code(s): J18.9 - Pneumonia, unspecified organism Status: Acute (2) COPD (chronic obstructive pulmonary disease): Code(s): J44.9 - Chronic obstructive pulmonary disease, unspecified Status: Acute (3) Thrombocytopenia: Code(s): D69.6 - Thrombocytopenia, unspecified Status: Acute (4) Hypothyroidism (acquired): Code(s): E03.9 - Hypothyroidism, unspecified Status: Acute (5) Anemia: Qualifiers: Anemia type: unspecified type Qualified Code(s): D64.9 - Anemia, unspecified Code(s): D64.9 - Anemia, unspecified Status: Acute (6) Acute exacerbation of CHF (congestive heart failure): Qualifiers: Heart failure type: unspecified Qualified Code(s): I50.9 - Heart failure, unspecified Code(s): I50.9 - Heart failure, unspecified Status: Acute (7) Acute respiratory failure with hypoxia: Code(s): J96.01 - Acute respiratory failure with hypoxia Status: Acute (8) Essential hypertension: Code(s): I10 - Essential (primary) hypertension Status: Chronic (9) Hyperlipidemia: Qualifiers: Hyperlipidemia type: unspecified Qualified Code(s): E78.5 - Hyperlipidemia, unspecified Code(s): E78.5 - Hyperlipidemia, unspecified Status: Chronic Additional Plan # shortness of breath: CXR with Cardiomegaly, mild congestive heart failure, Prominent infiltrate and/atelectasis in the lower lung zones, likely combination of pneumonia/chf. continue iv diuresis, iv antibiotics. CT chest from 2013 with severe emphysema with lower lung predominance. 6 mm nodule in RUL, 18 x 7 mm noduel mara RML. calcified nodule in lingula and calcified left hilar lymph nodes c/w old granulomatous disease. mild scarring in lingula. No pleural effusion. hernandez size is normal. calcifications and mitral annulus and aortic valve. coronary artery calcifications. no pericardial effusion there is calcified atherosclerosis of the aorta and many of the other arteries. The central pulmonary arteries are enlarged, consistent with pulmonary arterial hypertension. calcifications in the spleen are consistent with old granulomatous disease. there are old healed right rib fractures. there are bridging osteophytes at multiple levels in the spine, consistent with diffuse idiopathic skeletal hyperostosis (DISH). there is mild chronic anterior wedging of T11 and T12, likely physiologic. there is severe cerevical spondylosis. ther eis mild scarring at the lung apices. hx of COVID pneumonia 2019. # Acute on chornic congestive heart failure: diuresis. monitor renal function with diuresis. she refused her lasix. will do external cathter per request and continue iv diureis.s cardiology consultation. # chest pressure troponin normal. recheck and serial has been normal. # bilateral stasis dermatitis chrnoic # Generalised weakness: PT/OT # paroxysmal atrial fibrillation: rate controlled. contine amiodarone, metoprolol. on xarelto for anticoagulation. will continue same. amiodarone per report stopped last admission. # Chronic hypoxic respiratory failrue: on 2 lpm nc baseline home oxygen. # CAP: ceftriaxone, azithromycin. # SOA on CpAP. ordered CPAP here. # Hypothyroidsim: levothyroxine # anemia: chronic. no signs of blood loss. monitor. slightly down today. will monitor. # Morbid obesity # DVT proph: on xarelto chronically. # Full code. Subjective Date/time seen: 10/15/20 08:43 Interval history: feels a little better. she refused her lasix as she adamant as getting cathter.s he misses her lasix because of this as well at home. no fever, chills. cough present. Review of Systems Review of Systems: Narrative: CONSTITUTIONAL: Denies weight loss, fever and chills. - HEENT: Denies changes in vision and hearing - RESPIRATORY: reports SOB and mild cough. - CV: Denies palpitations and CP. - GI: Denies
[2020-10-15] MEDS: METOPROLOL TARTRATE 12.5 MG TABLET PO (10:03)
[2020-10-15] MEDS: TOLNAFTATE 1% POWDER 45 GM BTL 1 APPLIC TOPICAL ×2 (11:05→21:02)
[2020-10-15] MEDS: oxyCODONE/ACETAMINOPHEN (*CRX) 5-325 MG TABLET 1 TABLET PO ×2 (12:42→20:56)
--- NOTE | 2020-10-15 13:55 | PM.CNCAR ---
Assessment and Plan Assessment and plan (1) Acute on chronic diastolic CHF (congestive heart failure): Code(s): I50.33 - Acute on chronic diastolic (congestive) heart failure Status: Acute Assessment and Plan: Perhaps some mild volume overload with both right and left-sided failure blood proBNP is only 139, better than it was last time. Chronic CHF aggravated by noncompliance with furosemide which she has discontinued some time ago. Agree w/ diuresis. Dietitian to review sodium restriction, < 3 gm/day. BMP in a.m. (2) Right heart failure: Code(s): I50.810 - Right heart failure, unspecified Status: Acute Assessment and Plan: Chronic right heart failure due to pulmonary hypertension, morbid obesity and sleep apnea. (3) Paroxysmal atrial fibrillation: Code(s): I48.0 - Paroxysmal atrial fibrillation Status: Chronic Assessment and Plan: Paroxysmal atrial fibrillation maintaining sinus rhythm. Anticoagulated with Xarelto. (4) Macrocytic anemia: Code(s): D53.9 - Nutritional anemia, unspecified Status: Acute Assessment and Plan: Patient has significant macrocytosis and a progressive anemia. Check B12 and folate, TSH. However, since she also has developed some thrombocytopenia there may be a problem with her bone marrow. (5) Medication nonadherence due to intolerance: Code(s): Z91.14 - Patient's other noncompliance with medication regimen Status: Acute Assessment and Plan: Patient's stopped her furosemide due to difficulties ambulating to the bathroom frequently. States that she might try to be compliant if it were, for example, 3 times a week instead of daily. History of Present Illness History of Present Illness Consult date/time: 10/15/20 13:55 Consult reason: congestive heart failure Reason For Visit: community-acquired pneumonia, copd Narrative: Michelle Rogel Is a 79-year-old female whom we were asked to see at the request hospitalist for advice and opinion regarding her CHF in consultation. She has paroxysmal atrial fibrillation on chronic anticoagulation with rivaroxaban, CHF with preserved ejection fraction, hypertension, chronic respiratory failure on 2 L home O2, CHARLES on CPAP/BiPAP, depression. She was discharged August 2020 after a hospitalization for cellulitis, diastolic CHF and bradycardia. she was diuresed. Amiodarone was discontinued due to bradycardia and respiratory failure. Metoprolol was continued. She was readmitted last evening with shortness of breath and a cough, and CHF. Previously was followed by Dr. Anton Field at [place] for her paroxysmal atrial fibrillation , last visit 10/2018, and has a follow-up appointment with him on November 09 2020. Date of service 10/15/2020: patient has noted increasing shortness of breath such that walking from room to room would cause severe dyspnea. She has had increasing lower extremity edema. She does not know why she has had a relapse; she has been compliant with her CPAP and O2, has not used any nonsteroidals , has not felt any AFib for chest pain, and has nearly cut out salt from her diet (though she does use a lot of microwave meals ). However, she stopped taking her furosemide. She states she hates it because she has great difficulty getting up and going to the bathroom frequently. ProBNP was 149. Chest x-ray personally reviewed as below. Review of Systems Constitutional: Constitutional: Reports fatigue and Reports lethargy Eyes: Eyes: Denies blurry vision ENT: Denies epistaxis Cardiovascular: Cardiovascular: Denies chest pain, Denies diaphoresis, Repo
[2020-10-15] MEDS: FUROSEMIDE INJ 40 MG/4 ML VIAL IV PUSH (16:47)
[2020-10-15] MEDS: RIVAROXABAN 20 MG TABLET PO (16:47)
[2020-10-15] MEDS: clonazePAM (*CRX) 0.5 MG TABLET 1 MG PO (16:52)
--- NOTE | 2020-10-15 17:59 | PHAR ---
PT'S HOME MED TROSPIUM 20 MG TAB VERIFIED BY PHARMACY
[2020-10-15] MEDS: PRAMIPEXOLE 0.25 MG TABLET PO (20:55)
[2020-10-16] VITALS (18 sets, daily range): BP systolic 116–136; BP diastolic 57–78; PULSE 56–74; RESP 16–18; TEMP 36.1–37.1; O2SAT 91–99
[2020-10-16] MEDS: IPRATROPIUM BR 0.02% INH SOLN 0.5 MG/2.5 ML VIAL INHALATION ×4 (02:09→21:00)
[2020-10-16] MEDS: ALBUTEROL SULFATE NEB 2.5 MG/0.5 ML INH 5 MG INHALATION ×4 (02:10→21:01)
[2020-10-16] MEDS: LEVOTHYROXINE SODIUM 150 MCG TABLET PO (05:57)
[2020-10-16] MEDS: oxyCODONE/ACETAMINOPHEN (*CRX) 5-325 MG TABLET 1 TABLET PO ×3 (05:57→20:51)
[2020-10-16 06:26] LABS: Basophils Percent Auto 0.3 % (0.2-1.2); Eosinophils Absolute Auto 0.2 K/mm3 (0-0.3); Eosinophils Percent Auto 3.1 % (0-4.4); Hematocrit 27.2 % (37.0-47.0); Hemoglobin 9.1 g/dL (12.0-15.0); Immature Granulocyte Absolute 0.06 K/mm3 (0.00-0.031); Lymphocytes Absolute Auto 0.71 K/mm3 (0.9-3.2); Lymphocytes Percent Auto 11.5 % (18.3-44.2); Mean Corpuscular HGB Conc 33.5 g/dl (32-36); Mean Corpuscular Hemoglobin 39.2 pg (26-34); Mean Corpuscular Volume 117.2 fl (80-100); Mean Platelet Volume 10.1 fl (7.4-10.4); Monocytes Absolute Auto 0.2 K/mm3 (0.1-0.6); Monocytes Percent Auto 3.2 % (2.6-8.5); Neutrophils Percent Auto 80.9 % (45.5-73.1); Nucleated Red Blood Cells Perc 0.3 % (0.0-0.2); Platelet Count Result 181 k/mm3 (150-375); Red Blood Count 2.32 M/mm3 (4.2-5.4); Red Cell Distribution Width 26.6 % (11.5-14.5); White Blood Count 6.2 K/mm3 (4.5-10.0)
[2020-10-16 06:40] LABS: Anion Gap 4 mmol/L (8-16); Blood Urea Nitrogen 16 mg/dL (7-17); Calcium 8.8 mg/dL (8.4-10.2); Carbon Dioxide 36 mmol/L (22-30); Chloride 97 mmol/L (98-107); Estimated CRCL calculation 58 ml/min; Estimated Glomerular Filt Rate > 60; Glucose 91 mg/dL (65-105); Potassium 3.8 mmol/L (3.4-5.0); Sodium 137 mmol/L (137-145)
[2020-10-16 07:40] LABS: Folic Acid 5.2 ng/mL (2.76->20)
[2020-10-16] MEDS: PANTOPRAZOLE 40 MG TABLET PO (08:44)
[2020-10-16] MEDS: FUROSEMIDE INJ 40 MG/4 ML VIAL IV PUSH ×2 (08:44→17:37)
[2020-10-16] MEDS: ATORVASTATIN 40 MG TABLET PO (08:44)
[2020-10-16] MEDS: MIRABEGRON 25 MG ER TABLET PO (08:44)
[2020-10-16] MEDS: FERROUS GLUCONATE 324 MG TABLET PO (08:44)
[2020-10-16] MEDS: GABAPENTIN 100 MG CAPSULE PO ×2 (08:44→17:38)
[2020-10-16] MEDS: POTASSIUM CHLORIDE 20 MEQ TABLET.ER 40 MEQ PO (08:44)
[2020-10-16] MEDS: OPTI-GEN TAB 1 TABLET PO (08:44)
[2020-10-16] MEDS: VALSARTAN 160 MG TABLET 320 MG PO (08:45)
[2020-10-16] MEDS: CHOLECALCIFEROL 1,000 UNITS TABLET 2000 UNITS PO (08:45)
[2020-10-16] MEDS: TOLNAFTATE 1% POWDER 45 GM BTL 1 APPLIC TOPICAL ×2 (08:46→20:45)
[2020-10-16] MEDS: METHOTREXATE 2.5 MG TAB (*CHEMO) PO (08:46)
[2020-10-16] MEDS: FAMOTIDINE 20 MG TABLET 40 MG PO (08:48)
[2020-10-16] MEDS: ONDANSETRON INJ 4 MG/2 ML VIAL IV PUSH (10:41)
--- NOTE | 2020-10-16 12:55 | PM.PNCARD ---
Progress Note: A&P Assessment and Plan (1) Acute on chronic diastolic CHF (congestive heart failure): Code(s): I50.33 - Acute on chronic diastolic (congestive) heart failure Status: Acute Assessment and Plan: Mild volume overload with both right and left-sided failure blood proBNP is only 139, better than it was last admission. Chronic CHF aggravated by noncompliance with furosemide which she has discontinued some time ago. Diuresing well. Renal function stable. Dietitian to review sodium restriction, < 3 gm/day. Continue same. BMP Daily. Will add some potassium since she is diuresing so briskly. (2) Right heart failure: Code(s): I50.810 - Right heart failure, unspecified Status: Acute Assessment and Plan: Chronic right heart failure due to pulmonary hypertension, morbid obesity and sleep apnea. Compliant with CPAP. (3) Paroxysmal atrial fibrillation: Code(s): I48.0 - Paroxysmal atrial fibrillation Status: Chronic Assessment and Plan: Paroxysmal atrial fibrillation maintaining sinus rhythm. Anticoagulated with Xarelto. (4) Macrocytic anemia: Code(s): D53.9 - Nutritional anemia, unspecified Status: Acute Assessment and Plan: Patient has significant macrocytosis and a progressive anemia. B12 and folate Were normal, TSH only mildly elevated. However, since she also has developed some mildthrombocytopenia there may be a problem with her bone marrow. (5) Medication nonadherence due to intolerance: Code(s): Z91.14 - Patient's other noncompliance with medication regimen Status: Acute Assessment and Plan: Patient's stopped her furosemide due to difficulties ambulating to the bathroom frequently. States that she might try to be compliant if it were, for example, 3 times a week instead of daily. Subjective Date/time seen: 10/16/20 12:55 Interval history: Follow-up for increasing SIMS secondary to acute on chronic diastolic CHF ( patient had stopped her furosemide) and history of PAF, on Xarelto. Date of service 10/16/2020: Very good diuresis yesterday, 3 L Diuresed. Has not been out of bed yet, awaiting physical therapy evaluation. A little queasy this morning. No shortness of breath at rest. Review of Systems Constitutional: Constitutional: Reports fatigue and Reports lethargy Eyes: Eyes: Denies blurry vision ENT: Denies epistaxis Cardiovascular: Cardiovascular: Denies chest pain, Denies diaphoresis, Reports pedal edema, Reports leg edema, Denies lightheadedness, Denies palpitations, Reports dyspnea and Reports dyspnea on exertion Respiratory: Respiratory: Reports cough, Denies dyspnea and Reports dyspnea on exertion Gastrointestinal: Gastrointestinal: Denies abdominal pain, Denies hematochezia and Reports nausea Comments: Occasionally gets a little nauseated Genitourinary: Genitourinary: Denies hematuria Musculoskeletal: Musculoskeletal: Reports no additional musculoskeletal complaints Integumentary/Breasts: Skin/Breast: Reports dry skin and Reports rash Comments: chronic venous stasis rash Neurologic: Denies behavioral changes and Denies confusion Psychiatric: Psychiatric: Denies no additional psychiatric complaints, Denies behavioral changes and Denies confusion Endocrine: Endocrine: Reports fatigue and Denies palpitations Exam Const: General: comfortable and no acute distress HENMT: General nose exam: no epistaxis Mouth: Yes moist mucous membranes Eyes: EOM: EOMs intact bilaterally Neck: Neck: supple Resp: Effort & Inspection: normal respiratory effort Auscultation: rales ( f
[2020-10-16 13:37] LABS: Free T4 Free Thyroxine Reflex 1.11 ng/dL (0.78-2.19)
[2020-10-16] MEDS: POTASSIUM CHLORIDE 20 MEQ TABLET.ER PO (14:15)
[2020-10-16 14:26] LABS: Total Triiodothyronine (T3) 0.67 NG/ML (0.97-1.69)
--- NOTE | 2020-10-16 15:09 | PM.IMPN ---
Progress Note: A&P Assessment and Plan (1) Community acquired pneumonia: Code(s): J18.9 - Pneumonia, unspecified organism Status: Acute (2) COPD (chronic obstructive pulmonary disease): Code(s): J44.9 - Chronic obstructive pulmonary disease, unspecified Status: Acute (3) Thrombocytopenia: Code(s): D69.6 - Thrombocytopenia, unspecified Status: Acute (4) Hypothyroidism (acquired): Code(s): E03.9 - Hypothyroidism, unspecified Status: Acute (5) Anemia: Qualifiers: Anemia type: unspecified type Qualified Code(s): D64.9 - Anemia, unspecified Code(s): D64.9 - Anemia, unspecified Status: Acute (6) Acute exacerbation of CHF (congestive heart failure): Qualifiers: Heart failure type: unspecified Qualified Code(s): I50.9 - Heart failure, unspecified Code(s): I50.9 - Heart failure, unspecified Status: Acute (7) Acute respiratory failure with hypoxia: Code(s): J96.01 - Acute respiratory failure with hypoxia Status: Acute (8) Essential hypertension: Code(s): I10 - Essential (primary) hypertension Status: Chronic (9) Hyperlipidemia: Qualifiers: Hyperlipidemia type: unspecified Qualified Code(s): E78.5 - Hyperlipidemia, unspecified Code(s): E78.5 - Hyperlipidemia, unspecified Status: Chronic Additional Plan # shortness of breath: CXR with Cardiomegaly, mild congestive heart failure, Prominent infiltrate and/atelectasis in the lower lung zones likely combination of pneumonia/chf continue iv diuresis, iv antibiotics. CT chest from 2014 with severe emphysema with lower lung predominance. 6 mm nodule in RUL, 18 x 7 mm nodule in RML. calcified nodule in lingula and calcified left hilar lymph nodes c/w old granulomatous disease. mild scarring in lingula. No pleural effusion. hernandez size is normal. calcifications and mitral annulus and aortic valve. coronary artery calcifications. no pericardial effusion there is calcified atherosclerosis of the aorta and many of the other arteries. The central pulmonary arteries are enlarged, consistent with pulmonary arterial hypertension. calcifications in the spleen are consistent with old granulomatous disease. there are old healed right rib fractures. there are bridging osteophytes at multiple levels in the spine, consistent with diffuse idiopathic skeletal hyperostosis (DISH). there is mild chronic anterior wedging of T11 and T12, likely physiologic. there is severe cervical spondylosis. there is mild scarring at the lung apices. hx of COVID pneumonia 2019. # Acute on chronic congestive heart failure: continue diuresis, tolerating well monitor renal function with diuresis continue lasix strict i/o cardiology consulted, recommendations appreciated na+ restricted KCL ordered i/o daily weights # chest pressure troponin normal # bilateral stasis dermatitis chronic # Generalized weakness: PT/OT # paroxysmal atrial fibrillation: rate controlled continue amiodarone, metoprolol and xarelto amiodarone per report stopped last admission # Chronic hypoxic respiratory failure: on 2 lpm nc baseline home oxygen # CAP: ceftriaxone, azithromycin # CHARLES on CpAP, continue # Hypothyroidism: levothyroxine # anemia: chronic, no signs of blood loss monitor # Morbid obesity # DVT ppx: on xarelto chronically # Full code. Subjective Date/time seen: 10/16/20 15:09 pt seen and evaluated; no acute events overnight Review of Systems Review of Systems: All systems reviewed & are unremarkable except as noted in HPI and below Exam Const: General: no acute distress, alert and awake Orientation/consciousness: patient oriented x3 HENMT: Head: normocephalic and atraumatic Ears: hearing grossly normal bilaterally and external ears normal Face and sinus: face symmetric Mouth: Yes Normal oral and palatal mucosa present Eyes: Pupi
[2020-10-16] MEDS: RIVAROXABAN 20 MG TABLET PO (17:39)
[2020-10-16] MEDS: PRAMIPEXOLE 1 MG TABLET PO (20:43)
[2020-10-16] MEDS: traZODone HCL 50 MG TABLET 200 MG PO (20:43)
[2020-10-16] MEDS: DULoxetine HCL 30 MG CAPSULE.DR PO (20:43)
[2020-10-16] MEDS: MIRTAZAPINE SOLTAB 15 MG TAB.DISPER PO (20:44)
[2020-10-16] MEDS: clonazePAM (*CRX) 0.5 MG TABLET 1 MG PO (20:44)
[2020-10-16] MEDS: PRAMIPEXOLE 0.25 MG TABLET PO (20:44)
[2020-10-17] VITALS (16 sets, daily range): BP systolic 123–149; BP diastolic 53–85; PULSE 54–79; RESP 16–18; TEMP 36.3–36.4; O2SAT 92–100
[2020-10-17] MEDS: ALBUTEROL SULFATE NEB 2.5 MG/0.5 ML INH 5 MG INHALATION ×4 (02:19→20:14)
[2020-10-17] MEDS: IPRATROPIUM BR 0.02% INH SOLN 0.5 MG/2.5 ML VIAL INHALATION ×4 (02:20→20:14)
[2020-10-17] MEDS: LEVOTHYROXINE SODIUM 150 MCG TABLET PO (05:41)
[2020-10-17 06:26] LABS: Anion Gap 5 mmol/L (8-16); Blood Urea Nitrogen 18 mg/dL (7-17); Calcium 8.7 mg/dL (8.4-10.2); Carbon Dioxide 35 mmol/L (22-30); Chloride 94 mmol/L (98-107); Estimated CRCL calculation 53 ml/min; Estimated Glomerular Filt Rate > 60; Glucose 86 mg/dL (65-105); Potassium 4.1 mmol/L (3.4-5.0); Sodium 134 mmol/L (137-145)
[2020-10-17] MEDS: MIRABEGRON 25 MG ER TABLET PO (09:35)
[2020-10-17] MEDS: FERROUS GLUCONATE 324 MG TABLET PO (09:35)
[2020-10-17] MEDS: VALSARTAN 160 MG TABLET 320 MG PO (09:36)
[2020-10-17] MEDS: CHOLECALCIFEROL 1,000 UNITS TABLET 2000 UNITS PO ×2 (09:36→09:37)
[2020-10-17] MEDS: ATORVASTATIN 40 MG TABLET PO (09:36)
[2020-10-17] MEDS: OPTI-GEN TAB 1 TABLET PO (09:36)
[2020-10-17] MEDS: POTASSIUM CHLORIDE 20 MEQ TABLET.ER PO (09:36)
[2020-10-17] MEDS: GABAPENTIN 100 MG CAPSULE PO ×2 (09:36→16:48)
[2020-10-17] MEDS: POTASSIUM CHLORIDE 20 MEQ TABLET.ER 40 MEQ PO (09:37)
[2020-10-17] MEDS: METHOTREXATE 2.5 MG TAB (*CHEMO) PO (09:37)
[2020-10-17] MEDS: PANTOPRAZOLE 40 MG TABLET PO (09:37)
[2020-10-17] MEDS: TOLNAFTATE 1% POWDER 45 GM BTL 1 APPLIC TOPICAL ×2 (09:40→20:37)
[2020-10-17] MEDS: FUROSEMIDE INJ 40 MG/4 ML VIAL IV PUSH ×2 (09:40→16:47)
--- NOTE | 2020-10-17 09:43 | PM.IMPN ---
Progress Note: A&P Assessment and Plan (1) Acute and chronic respiratory failure with hypoxia: Code(s): J96.21 - Acute and chronic respiratory failure with hypoxia Status: Acute Assessment and Plan: Chronic respiratory failure secondary to COPD, pulmonary hypertension. She is on chronic oxygen 2 L per nasal cannula at all times. Acute respiratory failure secondary to CHF and pneumonia. Improved. She is at baseline 2 L. Continue supplemental O2 with goal saturation 90% or above (2) Acute exacerbation of CHF (congestive heart failure): Qualifiers: Heart failure type: unspecified Qualified Code(s): I50.9 - Heart failure, unspecified Code(s): I50.9 - Heart failure, unspecified Status: Acute Assessment and Plan: Evidence of volume overload based on CXR and mildly elevated BNP. Secondary to noncompliance with medication regimen. She has had symptomatic improvement with diuresis. Appreciate cardiology consultation Continue IV Lasix. PO potassium added. Monitor intake and output, daily weights Heart healthy diet (3) Community acquired pneumonia: Code(s): J18.9 - Pneumonia, unspecified organism Status: Acute Assessment and Plan: Prominent infiltrate of bilateral lower lung zones noted on CXR. She is afebrile. Continue azithromycin and ceftriaxone Supportive care to include bronchodilators, expectorants, incentive spirometry (4) COPD (chronic obstructive pulmonary disease): Code(s): J44.9 - Chronic obstructive pulmonary disease, unspecified Status: Acute Assessment and Plan: Not in acute exacerbation. No wheezing. Continue bronchodilators Supplemental O2 as above. (5) Hypothyroidism (acquired): Code(s): E03.9 - Hypothyroidism, unspecified Status: Acute Assessment and Plan: TSH is slightly elevated, free T4 is within normal limits, and T3 is slightly decreased. Continue levothyroxine at current dose Recommend repeat TSH in 4-6 weeks as outpatient upon resolution of acute illness (6) Anemia: Qualifiers: Anemia type: unspecified type Qualified Code(s): D64.9 - Anemia, unspecified Code(s): D64.9 - Anemia, unspecified Status: Acute Assessment and Plan: Chronic and stable upon review of prior labs. Vital signs stable. No evidence of blood loss. Monitor H&H daily (7) Essential hypertension: Code(s): I10 - Essential (primary) hypertension Status: Chronic Assessment and Plan: Blood pressure reviewed and is stable. Last BP 125/54 Continue valsartan and lasix Monitor BP trends (8) Paroxysmal atrial fibrillation: Code(s): I48.0 - Paroxysmal atrial fibrillation Status: Chronic Assessment and Plan: Rate is controlled. 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 Evaluated by wound care here approximately 6 months ago. Wound appears unchanged based on report. Keep area clean and dry. Subjective Date/time seen: 10/17/20 09:43 Interval history: Date of service: 10/17/2020 Michelle Rogel is a 79-year-old female with history of chronic CHF, anemia, CHARLES, hypertension, paroxysmal atrial fibrillation on chronic anticoagulation, hypothyroidism, and several other comorbidities who is seen in follow-up for CHF exacerbation. She reports she is feeling better today. She had just woken up and had not been out of bed yet today, therefore unable to state whether not she was experiencing dyspnea on exertion. Her shortness of breath at rest has improved. Denies wheezing. Denies orthopnea or PND. Reports improvement in lower extremity edema. No issues with her Beauchamp catheter. Denies abdominal pain, nausea, vomiting, diarrhea. No chest pain or palpitations. Review of Systems Review of Systems: All systems reviewed & are unremarkable except as note
--- NOTE | 2020-10-17 10:27 | PM.PNCARD ---
Progress Note: A&P Assessment and Plan (1) Acute on chronic diastolic CHF (congestive heart failure): Code(s): I50.33 - Acute on chronic diastolic (congestive) heart failure <CHELI French - Last Filed: 10/17/20 17:04> Status: Acute <CHELI French - Last Filed: 10/17/20 17:04> Assessment and Plan: Mild volume overload with both right and left-sided failure blood proBNP is only 139, better than it was last admission. Chronic CHF aggravated by noncompliance with furosemide which she has discontinued some time ago. Diuresing well. Renal function stable. Appears euvolemic. Will transition to oral furosemide. Dietitian to review sodium restriction, < 3 gm/day. BMP Daily. <CHELI French - Last Filed: 10/17/20 17:04> (2) Right heart failure: Code(s): I50.810 - Right heart failure, unspecified <CHELI French - Last Filed: 10/17/20 17:04> Status: Acute <CHELI French - Last Filed: 10/17/20 17:04> Assessment and Plan: Chronic right heart failure due to pulmonary hypertension, morbid obesity and sleep apnea. Compliant with CPAP. <CHELI Frnech - Last Filed: 10/17/20 17:04> (3) Paroxysmal atrial fibrillation: Code(s): I48.0 - Paroxysmal atrial fibrillation <CHELI French - Last Filed: 10/17/20 17:04> Status: Chronic <CHELI Frnech - Last Filed: 10/17/20 17:04> Assessment and Plan: Paroxysmal atrial fibrillation maintaining sinus rhythm. Anticoagulated with Xarelto. <Salina Alvarado [facility] - Last Filed: 10/17/20 17:04> (4) Macrocytic anemia: Code(s): D53.9 - Nutritional anemia, unspecified <CHELI French - Last Filed: 10/17/20 17:04> Status: Acute <CHELI French - Last Filed: 10/17/20 17:04> Assessment and Plan: Patient has significant macrocytosis and a progressive anemia. B12 and folate Were normal, TSH only mildly elevated. However, since she also has developed some mildthrombocytopenia there may be a problem with her bone marrow. <CHELI French - Last Filed: 10/17/20 17:04> (5) Medication nonadherence due to intolerance: Code(s): Z91.14 - Patient's other noncompliance with medication regimen <CHELI French - Last Filed: 10/17/20 17:04> Status: Acute <CHELI French - Last Filed: 10/17/20 17:04> Assessment and Plan: Patient's stopped her furosemide due to difficulties ambulating to the bathroom frequently. States that she might try to be compliant if it were, for example, 3 times a week instead of daily. <Salina Alvarado, ROUTING CLERK-C - Last Filed: 10/17/20 17:04> Additional Plan Attending Addendum: Pt personally seen and examined at bedside. I agree with the above plan of care as outlined. Patient feels very weak she states. Denies dizziness, chest pain or significant shortness of breath at this time. Patient indicates she will not take Lasix daily due to frequent urination, difficulty ambulating due to weakness. She understands full well that if she does not take Lasix she will decompensated in the but the hospital. she understands she cannot be on a chronic Beauchamp catheter as a matter of convenience. We discussed the importance of physical therapy, strengthening and improving her ability to ambulate and compromise with regards to Lasix 80 mg every other day as an outpatient as a starting point. Patient in full agreement. She is at her baseline O2. Edema has improved significantly. She has no other new complaints at this time. Examinat
--- NOTE | 2020-10-17 11:14 | PCNSR ---
On 10/17/20, the student,Hailee Lozano, provided care and completed [facility] documentation on this patient. I have reviewed the student's documentation and agree with the findings.
[2020-10-17] MEDS: oxyCODONE/ACETAMINOPHEN (*CRX) 5-325 MG TABLET 1 TABLET PO ×2 (12:47→20:51)
[2020-10-17] MEDS: FAMOTIDINE 20 MG TABLET 40 MG PO (12:47)
[2020-10-17] MEDS: RIVAROXABAN 20 MG TABLET PO (16:47)
[2020-10-17] MEDS: traZODone HCL 50 MG TABLET 200 MG PO (20:36)
[2020-10-17] MEDS: PRAMIPEXOLE 0.25 MG TABLET PO (20:37)
[2020-10-17] MEDS: PRAMIPEXOLE 1 MG TABLET PO (20:37)
[2020-10-17] MEDS: MIRTAZAPINE SOLTAB 15 MG TAB.DISPER PO (20:37)
[2020-10-17] MEDS: DULoxetine HCL 30 MG CAPSULE.DR PO (20:37)
[2020-10-17] MEDS: guaiFENesin 12 HR 600 MG TABCR PO (20:37)
[2020-10-17] MEDS: clonazePAM (*CRX) 0.5 MG TABLET 1 MG PO (20:52)
[2020-10-18] VITALS (16 sets, daily range): BP systolic 108–143; BP diastolic 58–76; PULSE 55–64; RESP 14–16; TEMP 36–37; O2SAT 93–98
[2020-10-18] MEDS: IPRATROPIUM BR 0.02% INH SOLN 0.5 MG/2.5 ML VIAL INHALATION ×4 (02:12→19:40)
[2020-10-18] MEDS: ALBUTEROL SULFATE NEB 2.5 MG/0.5 ML INH 5 MG INHALATION ×4 (02:12→19:40)
[2020-10-18] MEDS: LEVOTHYROXINE SODIUM 150 MCG TABLET PO (05:45)
[2020-10-18 05:54] LABS: Hematocrit 28.8 % (37.0-47.0); Hemoglobin 9.5 g/dL (12.0-15.0)
[2020-10-18 06:07] LABS: Anion Gap 3 mmol/L (8-16); Blood Urea Nitrogen 24 mg/dL (7-17); Calcium 8.7 mg/dL (8.4-10.2); Carbon Dioxide 39 mmol/L (22-30); Chloride 92 mmol/L (98-107); Estimated CRCL calculation 53 ml/min; Estimated Glomerular Filt Rate > 60; Glucose 86 mg/dL (65-105); Potassium 4.1 mmol/L (3.4-5.0); Sodium 134 mmol/L (137-145)
[2020-10-18] MEDS: FUROSEMIDE 80 MG TABLET PO (08:44)
[2020-10-18] MEDS: GABAPENTIN 100 MG CAPSULE PO ×2 (08:45→16:52)
[2020-10-18] MEDS: VALSARTAN 160 MG TABLET 320 MG PO (08:45)
[2020-10-18] MEDS: CHOLECALCIFEROL 1,000 UNITS TABLET 2000 UNITS PO (08:45)
[2020-10-18] MEDS: MIRABEGRON 25 MG ER TABLET PO (08:45)
[2020-10-18] MEDS: ATORVASTATIN 40 MG TABLET PO (08:45)
[2020-10-18] MEDS: guaiFENesin 12 HR 600 MG TABCR PO ×2 (08:45→20:07)
[2020-10-18] MEDS: PANTOPRAZOLE 40 MG TABLET PO (08:45)
[2020-10-18] MEDS: FERROUS GLUCONATE 324 MG TABLET PO (08:46)
[2020-10-18] MEDS: OPTI-GEN TAB 1 TABLET PO (08:46)
[2020-10-18] MEDS: POTASSIUM CHLORIDE 20 MEQ TABLET.ER 40 MEQ PO (08:46)
[2020-10-18] MEDS: METHOTREXATE 2.5 MG TAB (*CHEMO) PO (08:47)
[2020-10-18] MEDS: TOLNAFTATE 1% POWDER 45 GM BTL 1 APPLIC TOPICAL ×2 (08:47→20:04)
--- NOTE | 2020-10-18 09:48 | PM.PNCARD ---
Progress Note: A&P Assessment and Plan (1) Acute on chronic diastolic CHF (congestive heart failure): Code(s): I50.33 - Acute on chronic diastolic (congestive) heart failure Status: Acute Assessment and Plan: Mild volume overload with both right and left-sided failure blood proBNP is only 139, better than it was last admission. Chronic CHF aggravated by noncompliance with furosemide which she has discontinued some time ago. Diuresing well. Renal function stable. Appears euvolemic. Continue p.o. furosemide 80 mg daily. Dietitian to review sodium restriction, < 3 gm/day. BMP Daily. (2) Right heart failure: Code(s): I50.810 - Right heart failure, unspecified Status: Acute Assessment and Plan: Chronic right heart failure due to pulmonary hypertension, morbid obesity and sleep apnea. Compliant with CPAP. (3) Paroxysmal atrial fibrillation: Code(s): I48.0 - Paroxysmal atrial fibrillation Status: Chronic Assessment and Plan: Paroxysmal atrial fibrillation maintaining sinus rhythm. Anticoagulated with Xarelto. (4) Macrocytic anemia: Code(s): D53.9 - Nutritional anemia, unspecified Status: Acute Assessment and Plan: Patient has significant macrocytosis and a progressive anemia. B12 and folate Were normal, TSH only mildly elevated. However, since she also has developed some mildthrombocytopenia there may be a problem with her bone marrow. (5) Medication nonadherence due to intolerance: Code(s): Z91.14 - Patient's other noncompliance with medication regimen Status: Acute Assessment and Plan: Patient's stopped her furosemide due to difficulties ambulating to the bathroom frequently. States that she might try to be compliant if it were, for example, 3 times a week instead of daily. Discussed additional strategies for medication adherence. Subjective Date/time seen: 10/18/20 09:48 Interval history: Follow-up for increasing SIMS secondary to acute on chronic diastolic CHF ( patient had stopped her furosemide) and history of PAF, on Xarelto. Date of service 10/16/2020: Very good diuresis yesterday, 3 L Diuresed. Has not been out of bed yet, awaiting physical therapy evaluation. A little queasy this morning. No shortness of breath at rest. Date of service 10/17/2020: She feels good today and does not have any cardiovascular complaints. She states that she has not been seen by physical therapy and has not yet been out of bed during this hospitalization. She remains on 1 L of oxygen (on 2 L home O2 ). CPAP at night. Continues to diurese well with IV furosemide. Date of service 10/18/2020: Patient is out of bed today sitting in a chair. She states that she did well with transfer from bed to the chair and did not experience significant dyspnea with exertion. She is not experiencing any shortness of breath at rest. She remains on 1L of oxygen. She is expressing concern about having her Beauchamp catheter removed today. Reinforced that having an indwelling Beauchamp catheter long-term is not an option due to risk of infection. Patient understands this and states that if that is the case that she will not take her diuretic. Discussed with patient prior plan of taking her furosemide every other day at home to provide her some degree of freedom from frequent urination as this causes her a significant physical burden. She is agreeable with this plan. Review of Systems Constitutional: Constitutional: Reports fatigue and Reports lethargy Eyes: Eyes: Denies blurry vision ENT: Denies epistaxis Cardiovascular: Cardiovasc
[2020-10-18] MEDS: oxyCODONE/ACETAMINOPHEN (*CRX) 5-325 MG TABLET 1 TABLET PO ×2 (11:56→20:08)
[2020-10-18] MEDS: FAMOTIDINE 20 MG TABLET 40 MG PO (13:11)
--- NOTE | 2020-10-18 15:50 | PM.IMPN ---
Progress Note: A&P Assessment and Plan (1) Acute and chronic respiratory failure with hypoxia: Code(s): J96.21 - Acute and chronic respiratory failure with hypoxia Status: Acute Assessment and Plan: Chronic respiratory failure secondary to COPD, pulmonary hypertension. She is on chronic oxygen 2 L per nasal cannula at all times. Acute respiratory failure secondary to CHF and pneumonia. Improved. She is back at baseline 2 L. Continue supplemental O2 with goal saturation 90% or above (2) Acute exacerbation of CHF (congestive heart failure): Qualifiers: Heart failure type: unspecified Qualified Code(s): I50.9 - Heart failure, unspecified Code(s): I50.9 - Heart failure, unspecified Status: Acute Assessment and Plan: Evidence of volume overload based on CXR and mildly elevated BNP. Secondary to noncompliance with medication regimen. She has had symptomatic improvement with diuresis. Appreciate cardiology consultation Transition to PO Lasix 80 mg daily. She is agreeable only to 80 mg every other day at home to help alleviate unwanted frequent urination. Monitor intake and output, daily weights Heart healthy diet (3) Community acquired pneumonia: Code(s): J18.9 - Pneumonia, unspecified organism Status: Acute Assessment and Plan: Prominent infiltrate of bilateral lower lung zones noted on CXR. She is afebrile. Continue azithromycin and ceftriaxone Supportive care to include bronchodilators, expectorants, incentive spirometry (4) COPD (chronic obstructive pulmonary disease): Code(s): J44.9 - Chronic obstructive pulmonary disease, unspecified Status: Acute Assessment and Plan: Not in acute exacerbation. No wheezing. Continue bronchodilators Supplemental O2 as above. (5) Hypothyroidism (acquired): Code(s): E03.9 - Hypothyroidism, unspecified Status: Acute Assessment and Plan: TSH is slightly elevated, free T4 is within normal limits, and T3 is slightly decreased. Continue levothyroxine at current dose Recommend repeat TSH in 4-6 weeks as outpatient upon resolution of acute illness (6) Anemia: Qualifiers: Anemia type: unspecified type Qualified Code(s): D64.9 - Anemia, unspecified Code(s): D64.9 - Anemia, unspecified Status: Acute Assessment and Plan: Chronic and stable upon review of prior labs. Vital signs stable. No evidence of blood loss. Monitor H&H daily (7) Essential hypertension: Code(s): I10 - Essential (primary) hypertension Status: Chronic Assessment and Plan: Blood pressure reviewed and is stable. Last BP 143/58 Continue valsartan and lasix Monitor BP trends (8) Paroxysmal atrial fibrillation: Code(s): I48.0 - Paroxysmal atrial fibrillation Status: Chronic Assessment and Plan: Rate is controlled. Continue Xarelto (9) Generalized weakness: Code(s): R53.1 - Weakness Status: Acute Assessment and Plan: She reports feeling very weak. She also notes lightheadedness. Suspect related to overall physical deconditioning. B12 folate within normal limits, TSH slightly abnormal as above. Check orthostatics Appreciate PT/OT eval Fall precautions Subjective Date/time seen: 10/18/20 15:50 Interval history: Date of service: 10/18/2020 Michelle Rogel is a 79-year-old female with history of chronic CHF, anemia, CHARLES, hypertension, paroxysmal atrial fibrillation on chronic anticoagulation, hypothyroidism, and several other comorbidities who is seen in follow-up for CHF exacerbation. Her shortness of breath has improved. Her lower extremity edema has also improved. She feels too weak to go home. She feels lightheaded with positional changes. Her Beauhcamp catheter was removed this afternoon and she still has not urinated. Denies chest pain, palpitations, cough, orthop
[2020-10-18] MEDS: ACETAMINOPHEN 325 MG TABLET 650 MG PO (16:50)
[2020-10-18] MEDS: RIVAROXABAN 20 MG TABLET PO (16:52)
[2020-10-18] MEDS: clonazePAM (*CRX) 0.5 MG TABLET 1 MG PO (20:05)
[2020-10-18] MEDS: traZODone HCL 50 MG TABLET 200 MG PO (20:05)
[2020-10-18] MEDS: DULoxetine HCL 30 MG CAPSULE.DR PO (20:07)
[2020-10-18] MEDS: PRAMIPEXOLE 0.25 MG TABLET PO (20:07)
[2020-10-18] MEDS: PRAMIPEXOLE 1 MG TABLET PO (20:07)
[2020-10-18] MEDS: MIRTAZAPINE SOLTAB 15 MG TAB.DISPER PO (20:08)
[2020-10-19] VITALS (8 sets, daily range): BP systolic 122–141; BP diastolic 47–69; PULSE 62–117; RESP 14–20; TEMP 36.1; O2SAT 93–96
[2020-10-19] MEDS: ALBUTEROL SULFATE NEB 2.5 MG/0.5 ML INH 5 MG INHALATION ×2 (03:16→08:46)
[2020-10-19] MEDS: IPRATROPIUM BR 0.02% INH SOLN 0.5 MG/2.5 ML VIAL INHALATION ×2 (03:16→08:46)
[2020-10-19] MEDS: oxyCODONE/ACETAMINOPHEN (*CRX) 5-325 MG TABLET 1 TABLET PO ×2 (05:37→12:09)
[2020-10-19] MEDS: LEVOTHYROXINE SODIUM 150 MCG TABLET PO (05:37)
[2020-10-19 05:58] LABS: Hematocrit 29.1 % (37.0-47.0); Hemoglobin 9.5 g/dL (12.0-15.0); Mean Corpuscular HGB Conc 32.6 g/dl (32-36); Mean Corpuscular Hemoglobin 39.4 pg (26-34); Mean Corpuscular Volume 120.7 fl (80-100); Mean Platelet Volume 9.9 fl (7.4-10.4); Platelet Count Result 213 k/mm3 (150-375); Red Blood Count 2.41 M/mm3 (4.2-5.4); Red Cell Distribution Width 27.1 % (11.5-14.5); White Blood Count 6.8 K/mm3 (4.5-10.0)
[2020-10-19 06:00] LABS: Blood Urea Nitrogen 24 mg/dL (7-17); Calcium 9.2 mg/dL (8.4-10.2); Carbon Dioxide > 40 mmol/L (22-30); Chloride 91 mmol/L (98-107); Estimated CRCL calculation 48 ml/min; Estimated Glomerular Filt Rate 54; Glucose 90 mg/dL (65-105); Potassium 4.2 mmol/L (3.4-5.0); Sodium 136 mmol/L (137-145)
[2020-10-19] MEDS: ATORVASTATIN 40 MG TABLET PO (08:25)
[2020-10-19] MEDS: FERROUS GLUCONATE 324 MG TABLET PO (08:25)
[2020-10-19] MEDS: POTASSIUM CHLORIDE 20 MEQ TABLET.ER 40 MEQ PO (08:25)
[2020-10-19] MEDS: VALSARTAN 160 MG TABLET 320 MG PO (08:26)
[2020-10-19] MEDS: OPTI-GEN TAB 1 TABLET PO (08:26)
[2020-10-19] MEDS: METHOTREXATE 2.5 MG TAB (*CHEMO) PO (08:26)
[2020-10-19] MEDS: guaiFENesin 12 HR 600 MG TABCR PO (08:26)
[2020-10-19] MEDS: GABAPENTIN 100 MG CAPSULE PO (08:26)
[2020-10-19] MEDS: CHOLECALCIFEROL 1,000 UNITS TABLET 2000 UNITS PO (08:26)
[2020-10-19] MEDS: PANTOPRAZOLE 40 MG TABLET PO (08:26)
[2020-10-19] MEDS: MIRABEGRON 25 MG ER TABLET PO (08:27)
[2020-10-19] MEDS: TOLNAFTATE 1% POWDER 45 GM BTL 1 APPLIC TOPICAL (09:28)
[2020-10-19] MEDS: FAMOTIDINE 20 MG TABLET 40 MG PO (09:28)
--- NOTE | 2020-10-19 10:57 | PM.DS ---
DS: Admitting Diagnosis Admitting Diagnosis Admitting Diagnosis: Acute on chronic respiratory failure DS: Discharge Diagnosis Discharge Diagnosis (1) Acute and chronic respiratory failure with hypoxia: Code(s): J96.21 - Acute and chronic respiratory failure with hypoxia Status: Acute Assessment and Plan: Chronic respiratory failure secondary to COPD, pulmonary hypertension. She is on chronic oxygen 2 L per nasal cannula at all times. Acute respiratory failure secondary to CHF and pneumonia. This improved and she was weaned back to her baseline 2 L (2) Acute exacerbation of CHF (congestive heart failure): Qualifiers: Heart failure type: unspecified Qualified Code(s): I50.9 - Heart failure, unspecified Code(s): I50.9 - Heart failure, unspecified Status: Acute Assessment and Plan: Evidence of volume overload based on CXR and mildly elevated BNP. Secondary to noncompliance with medication regimen. She was seen in consultation by cardiology and was diuresed with IV Lasix. She had symptomatic improvement with diuresis. She was not agreeable to taking Lasix every day due to unwanted frequent urination, therefore it was decided that she would take 80 mg Lasix every other day. She will need to follow-up with cardiology as an outpatient. CHF education provided. (3) Community acquired pneumonia: Code(s): J18.9 - Pneumonia, unspecified organism Status: Acute Assessment and Plan: Prominent infiltrate of bilateral lower lung zones noted on CXR. She remained afebrile. She was treated with IV azithromycin and ceftriaxone, and supportive care was provided including bronchodilators, expectorants, and incentive spirometry. She completed a course of azithromycin and will continue p.o. cefdinir for 2 days as an outpatient to complete a 7 day course. (4) COPD (chronic obstructive pulmonary disease): Code(s): J44.9 - Chronic obstructive pulmonary disease, unspecified Status: Acute Assessment and Plan: Not in acute exacerbation. No wheezing on exam. Continue bronchodilators and supplemental oxygen as above (5) Hypothyroidism (acquired): Code(s): E03.9 - Hypothyroidism, unspecified Status: Acute Assessment and Plan: TSH was slightly elevated, free T4 within normal limits, and T3 slightly decreased. Continue levothyroxine at current dose. Recommend repeat TSH in 4-6 weeks as outpatient upon resolution of acute illness (6) Anemia: Qualifiers: Anemia type: unspecified type Qualified Code(s): D64.9 - Anemia, unspecified Code(s): D64.9 - Anemia, unspecified Status: Acute Assessment and Plan: Chronic and stable upon review of prior labs. Vital signs stable. No evidence of blood loss. (7) Essential hypertension: Code(s): I10 - Essential (primary) hypertension Status: Chronic Assessment and Plan: Blood pressure reviewed and remained stable. Continue valsartan and Lasix. (8) Paroxysmal atrial fibrillation: Code(s): I48.0 - Paroxysmal atrial fibrillation Status: Chronic Assessment and Plan: Rate remained controlled. Continue Xarelto. She is not on any rate controlling medications. (9) Generalized weakness: Code(s): R53.1 - Weakness Status: Acute Assessment and Plan: She reported feeling very weak, suspect related to overall physical deconditioning. B12 folate within normal limits, TSH slightly abnormal as above. Orthostatics negative. She was evaluated by PT/OT and home health care was arranged. Fall precautions discussed at length. DS: Summary Hospital Course Reason for hospitalization: Dyspnea Hospital Course: Date of admission: 10/14/2020 Date of discharge: 10/19/2020 Michelle Rogel is a 79-year-old female with history of chronic CHF, anemia, CHARLES, hypertension, paroxysmal atrial fibrillation on chronic anticoagulation,
== END 2020-10-19 13:17 | disposition home health service (06) ==
LOC: ANHED 23:26 → ANH3MED 23:44
PROVIDERS: Internal Medicine Cardiovascular Disease; Admitting Provider Internal Medicine; Emergency Provider Emergency Medicine; PCP Internal Medicine; Visit Provider Physician Assistant
DX: J96.21 Acute and chronic respiratory failure with hypoxia (principal); J18.9 Pneumonia, unspecified organism; J44.9 Chronic obstructive pulmonary disease, unspecified; I11.0 Hypertensive heart disease with heart failure; D64.9 Anemia, unspecified; E78.5 Hyperlipidemia, unspecified; E03.9 Hypothyroidism, unspecified; E66.01 Morbid (severe) obesity due to excess calories; G47.33 Obstructive sleep apnea (adult) (pediatric); I48.91 Unspecified atrial fibrillation; R53.1 Weakness; I50.9 Heart failure, unspecified; Z96.653 Presence of artificial knee joint, bilateral; Z68.42 Body mass index [BMI] 45.0-49.9, adult; Z99.81 Dependence on supplemental oxygen; Z79.01 Long term (current) use of anticoagulants
CPT/HCPCS: 36415; 71045; 80048; 82607; 82746; 83880; 84439; 84443; 84480; 84484; 85014; 85018; 85025; 85027; 85610; 85730; 93005; 94640; 96365; 96366; 96367; 96375; 96376; 97110; 97161; 97165; 99285; A9270; G0378; J0456; J0696; J1940; J2405

== ENCOUNTER 2021-02-27 19:33 | Inpatient (IN) | payer MEDICARE, SELFPAY ==
[2021-02-27] VITALS (10 sets, daily range): BP systolic 120–140; BP diastolic 93–116; PULSE 84–117; RESP 17–30; TEMP 36.7; O2SAT 95–100
--- NOTE | ~2021-02-27 | XR_ITS ---
XR tibia fibula RT 2V 03/08/2021 17:15 Indication: Right leg pain. Wound and swelling. Bleeding. Procedure: 2 views right tibia/fibula Comparison: No prior studies for comparison. Findings: There is a single screw transfixing the distal fibula. There are healed distal fibular and tibial fractures. There is a distal tibial side plate and screw screws in anatomic alignment. There i s a right total knee arthroplasty. Osteopenia. No acute fracture or traumatic malalignment. There is moderate diffuse soft tissue swelling. No foreign bodies. Impression: 1: No acute bone or joint abnormality. Reviewed, dictated and finalized at location A. Impression: 1: No acute bone or joint abnormality.
--- NOTE | ~2021-02-27 | XR_ITS ---
EXAMINATION: XR thoracic spine 2V DATE: 02/27/2021 22:39 INDICATION: Thoracic back pain TECHNIQUE: AP and lateral views of the thoracic spine were obtained. COMPARISON: None. FINDINGS: There is cervicothoracic levocurvature. The bones are osteopenic which limits the sensitivi ty for fracture however none is seen. The vertebral body heights are normal. There is mild loss of in tervertebral disc space height in the mid and lower thoracic spine. Small degenerative osteophytes pr oject from the anterior endplates of multiple vertebral bodies. IMPRESSION: 1. Mild to moderate thoracic spondylosis without acute findings. Reviewed, dictated and finalized at location A.
--- NOTE | ~2021-02-27 | XR_ITS ---
EXAMINATION: XR lumbar spine 2-3V DATE: 02/27/2021 22:38 INDICATION: Generalized low back pain TECHNIQUE: Anteroposterior and lateral views of the lumbar spine, and cone-down lateral view of the l umbosacral junction were obtained. COMPARISON: CT, 01/01/2015 FINDINGS: There are changes of posterior fusion from L3 through L5. There is stable grade 2 anterolis thesis of L4 on L5. There is severe loss of intervertebral disc space height at L5-S1, unchanged. The re is severe loss of intervertebral disc space height at L1-2. No fracture is identified. IMPRESSION: 1. Severe lumbar spondylosis without acute findings or significant interval change. Reviewed, dictated and finalized at location A. IMPRESSION: 1. Severe lumbar spondylosis without acute findings or significant interval lucille meaghane.
--- NOTE | ~2021-02-27 | XR_ITS ---
EXAMINATION: XR chest 1V portable INDICATION: Shortness of breath TECHNIQUE: Portable AP chest at 1738 hours COMPARISON: 03/01/2021 FINDINGS: Cardiomegaly is noted. A mild diffuse interstitial pattern persists without significant lucille nge. Bibasilar airspace opacities persist but have improved. No pneumothorax is identified. There are small pleural effusions. 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 There are surgical clips in the right neck. IMPRESSION: 1. Cardiomegaly with mild pulmonary edema, unchanged. 2. Improved bibasilar airspace opacities, likely atelectasis. Reviewed, dictated and finalized at location A.
--- NOTE | ~2021-02-27 | CT_ITS ---
EXAMINATION: CT cervical spine wo con DATE: 03/05/2021 15:07 INDICATION: Fall TECHNIQUE: Computed tomography (CT) of the cervical spine was performed without intravenous contrast. Automated exposure control and iterative reconstruction technique were employed. Exam dose: 481.67 mGy-cm total exam DLP. COMPARISON: 02/27/2021 CT cervical spine FINDINGS: Examination is limited by motion. There is prominent reversal of cervical curvature and cervical scoliosis. There is a chronic short segment defect in the posterior left C1 lamina, with cortication, stable sin ce 02/27/2021. C1 and C2 are normally aligned and the odontoid process is intact. Again noted is 2 mm anterolisthesis and severe degenerative disc disease at C3-4. There is severe deg enerative disc disease at C4-5, C5-6-7 as well. No fracture or dislocation or locked facet or prevertebral soft tissue swelling is evident. IMPRESSION: No interval fracture or dislocation is detected Reversal of cervical curvature, scoliosis Severe multilevel degenerative disc disease 2 mm anterolisthesis at C3-4 Reviewed, dictated and finalized at Location A. Reviewed, dictated and finalized at location A.
--- NOTE | ~2021-02-27 | CT_ITS ---
EXAMINATION: CT brain wo con INDICATION: Head injury COMPARISON: 01/05/2019 TECHNIQUE: Standard unenhanced head CT. The dose-length product (DLP) was 605.33 mGy-cm. The mA was a djusted according to patient size. Iterative reconstruction technique was employed. FINDINGS: There is no acute intraparenchymal hemorrhage. No evidence of mass lesion. No evidence of a cute infarction. There is mild periventricular and subcortical hypodensity probably related to small vessel ischemic disease. There is mild prominence of the sulci and ventricles related to cerebral atr ophy. Intracranial calcified cerebral atherosclerosis is noted. There are no extra-axial collections. There is no mass effect or midline shift. The orbits and soft tissues are unremarkable. There is mil d mucosal thickening of the paranasal sinuses. IMPRESSION: 1. No acute intracranial abnormality. 2. Age related findings. Reviewed, dictated and finalized at location A.
--- NOTE | ~2021-02-27 | CT_ITS ---
EXAMINATION: CT brain wo con DATE: 03/05/2021 15:07 INDICATION: Fall. Head injury. TECHNIQUE: Computed tomography (CT) of the head was performed without intravenous contrast. The mA wa s adjusted according to patient size. Iterative reconstruction technique was employed. Exam dose: 60 5.33 mGy-cm total exam DLP. COMPARISON: 02/27/2021 CT brain FINDINGS: Exam is mildly limited by motion. There is moderate cerebral and cerebellar atrophy. There is nonspecific diminished attenuation of the cerebral white matter, likely due to chronic small vessel ischemic changes. Prominent bilateral clark tid siphon internal carotid artery calcifications are noted. No fracture or bone destruction of the cranial vault. No subdural or epidural hematoma. The mastoid air cells and included paranasal sinuses are unremarkable. IMPRESSION: Cerebral atherosclerosis and chronic small vessel ischemic changes of the cerebral white matter Moderate cerebral and cerebellar atrophy No acute finding or significant change since 02/27/2021 Reviewed, dictated and finalized at Location A. Reviewed, dictated and finalized at location A.
--- NOTE | ~2021-02-27 | XR_ITS ---
EXAMINATION: XR chest 1V portable INDICATION: Congestive heart failure TECHNIQUE: Portable AP chest at 1748 hours COMPARISON: 02/27/2021 FINDINGS: Cardiomegaly is noted. There is a mild diffuse interstitial pattern. Bibasilar airspace opa cities persist but have improved. There appear to be persistent small pleural effusions. No pneumotho rax is identified. There is advanced osteoarthritis of the right shoulder. IMPRESSION: 1. Cardiomegaly with likely mild pulmonary edema. 2. Persistent but improved bibasilar airspace opacities, atelectasis versus pneumonia. Reviewed, dictated and finalized at location A. IMPRESSION: 1. Cardiomegaly with likely mild pulmonary edema. 2. Persistent but improved bibasilar airspace opacities, atelectasis versus pne umonia.
--- NOTE | ~2021-02-27 | CT_ITS ---
EXAMINATION: CT cervical spine wo con DATE: 02/27/2021 22:47 INDICATION: Head injury TECHNIQUE: Computed tomography (CT) of the cervical spine was performed without intravenous contrast. The dose-length product (DLP) was 592.01 mGy-cm. Automated exposure control and iterative reconstruc tion technique were employed. COMPARISON: None FINDINGS: The examination is limited by the patient's body habitus. There are 2 mm of anterolisthesis of C3 on C4. No fracture is identified. There is severe loss of intervertebral disc space height fro m C3-4 through C6-7. The odontoid is intact. There is severe multilevel facet and uncovertebral joint osteoarthritis. There is fibrous stranding of the posterior C1 arch. IMPRESSION: 1. Severe cervical spondylosis without acute findings, sensitivity limited by the patient's body habi tus. Reviewed, dictated and finalized at location A. IMPRESSION: 1. Severe cervical spondylosis without acute findings, sensitivity limited by t he patient's body habitus.
--- NOTE | ~2021-02-27 | XR_ITS ---
EXAMINATION: XR chest 2V DATE: 02/27/2021 20:08 INDICATION: Weakness, history of hypertension TECHNIQUE: AP and lateral views of the chest are obtained. COMPARISON: 10/14/2020 FINDINGS: Cardiomegaly is noted. There are airspace opacities of the lung bases. Small pleural effusi ons are present. There is no pneumothorax. There is moderate thoracic spondylosis. IMPRESSION: 1. Bibasilar airspace opacities, consistent with atelectasis versus pneumonia. 2. Cardiomegaly. 3. Small pleural effusions. Reviewed, dictated and finalized at location A.
--- NOTE | 2021-02-27 19:52 | ECG_ITS ---
Measurements Intervals [place] Rate: 104 P: [place]: 0 QRS: 21 QRSD: 79 T: 6 QT: 341 QTc: 450 Interpretive Statements ATRIAL FIBRILLATION WITH RAPID VENTRICULAR RESPONSE BASELINE WANDER- V3 ABNORMAL ECG Electronically Signed On 02-28-2021 6:02:31 CDT by Saji Lyons D.O.
[2021-02-27 21:33] LABS: Alveolar/Arterial O2 Gradient 61.1 mmHg; Base Excess ABG 2.3 mEq/l (+/-2.0); Fractional Inspired Oxygen 32 %; HCO3 ABG 28.2 mEq/l (22.0-26.0); Oxygen Content ABG 18.4 %vol (16.0-22.0); Oxygen Saturation ABG 97.9 % (95.0-100.0); Oxyhemoglobin 96.3 % THb (90.0-100.0); PCO2 ABG 48.9 mmHg (35.0-45.0); PO2 ABG 109.8 mmHg (80.0-100.0); PO2 FiO2 Ratio Arterial Blood 3.43 %; Total Hemoglobin 13.5 g/dL (12.0-18.0); pH ABG 7.379 (7.350-7.450)
[2021-02-27 21:34] LABS: Device NASAL CANNULA; Modified Allen's Test Pass; Site Drawn RIGHT RADIAL
[2021-02-27 21:40] LABS: Add Urine Microscopic? YES; Appearance Urine Cloudy (Clear); Bacteria Urine Trace /hpf; Bilirubin Urine Negative (Negative); Blood Urine Negative (Negative); Budding Yeast Urine Present /hpf; Color Urine Amber (Yellow); Glucose Urine UA Negative (Negative); Ketones Urine Trace mg/dL (Negative); Leukocyte Esterase Ur 2+ LEU/UL (Negative); Nitrate Urine Negative (Negative); Protein Urine 3+ mg/dL (Negative); RBC Urine >75 /hpf (0-2); Specific Grav Ur 1.032 (1.001-1.035); Squamous Epithelial Cell Urine Many /hpf (Few); WBC Clumps Urine Present /HPF; WBC Urine >75 /hpf
[2021-02-27 21:41] LABS: Basophils Percent Auto 0.3 % (0.2-1.2); Eosinophils Absolute Auto 0.1 K/mm3 (0-0.3); Eosinophils Percent Auto 1.4 % (0-4.4); Hematocrit 42.6 % (37.0-47.0); Hemoglobin 13.7 g/dL (12.0-15.0); Immature Granulocyte Absolute 0.03 K/mm3 (0.00-0.031); Immature Granulocyte Percent A 0.5 % (0-0.5); Lymphocytes Absolute Auto 0.75 K/mm3 (0.9-3.2); Lymphocytes Percent Auto 11.7 % (18.3-44.2); Mean Corpuscular HGB Conc 32.2 g/dl (32-36); Mean Corpuscular Hemoglobin 33.9 pg (26-34); Mean Corpuscular Volume 105.4 fl (80-100); Mean Platelet Volume 9.2 fl (7.4-10.4); Monocytes Absolute Auto 0.6 K/mm3 (0.1-0.6); Monocytes Percent Auto 8.9 % (2.6-8.5); Neutrophils Absolute Auto 4.9 K/mm3 (1.3-6.7); Neutrophils Percent Auto 77.2 % (45.5-73.1); Platelet Count Result 143 k/mm3 (150-375); Red Blood Count 4.04 M/mm3 (4.2-5.4); Red Cell Distribution Width 15.8 % (11.5-14.5); White Blood Count 6.4 K/mm3 (4.5-10.0)
[2021-02-27 21:53] LABS: Alanine Aminotransferase 24 U/L (4-35); Alkaline Phosphatase 133 U/L (38-126); Anion Gap 5 mmol/L (8-16); Aspartate Amino Transferase 40 U/L (14-36); Bilirubin,Total 0.7 mg/dL (0.2-1.3); Blood Urea Nitrogen 22 mg/dL (7-17); Calcium 9.1 mg/dL (8.4-10.2); Carbon Dioxide 31 mmol/L (22-30); Chloride 102 mmol/L (98-107); Estimated CRCL calculation 49 ml/min; Estimated Glomerular Filt Rate > 60; Glucose 95 mg/dL (65-110); Potassium 4.2 mmol/L (3.4-5.0); Sodium 138 mmol/L (137-145)
--- NOTE | 2021-02-27 21:57 | ED.GENADULT ---
HPI - General Adult General Chief complaint: Weakness Stated complaint: INCREASE WEAKNESS WITH GLF X 2 TODAY Time Seen by Provider: 02/27/21 20:58 Source: patient History of Present Illness HPI narrative: Patient is a 80 y/o female complaining of severe weakness for 1 week. There is no known alleviating or exacerbating factor. She states that she usually ambulates with walker. She states that her knees gave out and she fell today. She feels soreness allover. She has chronic back pain. Related Data Home Medications Medication Instructions Recorded Confirmed PreserVision AREDS-2 1 tablet PO BID 02/16/20 10/15/20 Xarelto 20 mg PO DAILY 02/16/20 10/15/20 atorvastatin 40 mg PO DAILY 02/16/20 10/15/20 biotin 10,000 mcg PO DAILY 02/16/20 10/15/20 bupropion HCl 150 mg PO BID 02/16/20 10/15/20 clonazepam 1 mg PO DAILY PRN 02/16/20 10/15/20 duloxetine 30 mg PO HS 02/16/20 10/15/20 esomeprazole magnesium 40 mg PO DAILY 02/16/20 10/15/20 ferrous gluconate 236 mg PO DAILY 02/16/20 10/15/20 gabapentin 100 mg PO BID 02/16/20 10/15/20 mirtazapine 15 mg PO HS 02/16/20 10/15/20 oxycodone-acetaminophen 1 tablet PO Q6H PRN 02/16/20 10/15/20 potassium chloride 40 meq PO DAILY 02/16/20 10/15/20 trazodone 200 mg PO HS 02/16/20 10/15/20 valsartan 320 mg PO DAILY 02/16/20 10/15/20 levothyroxine 150 mcg PO DAILY 02/17/20 10/15/20 pramipexole 1 mg PO HS 08/04/20 10/15/20 Myrbetriq 25 mg PO DAILY 10/15/20 10/15/20 calcium carbonate-vitamin D3 1 cap PO DAILY 10/15/20 10/15/20 cholecalciferol (vitamin D3) 50 mcg PO DAILY 10/15/20 10/15/20 clotrimazole 10 mg PO QID PRN 10/15/20 10/15/20 doxycycline hyclate 100 mg PO BID 10/15/20 10/15/20 famotidine 40 mg PO DAILY 10/15/20 10/15/20 methotrexate sodium 2.5 mg PO DAILY 10/15/20 10/15/20 pramipexole 0.25 mg PO HS 10/15/20 10/15/20 trospium 20 mg PO BID 10/15/20 10/15/20 Allergies Allergy/AdvReac Type Severity Reaction Status Date / Time Sulfa (Sulfonamide Allergy Unknown unknown Verified 10/15/20 00:45 Antibiotics) Review of Systems Constitutional: Constitutional: Denies chills, Denies fever(s), Reports frequent falls, Denies headache(s) and Reports weakness Eyes: Eyes: Denies blurry vision ENT: Denies headache(s) and Denies neck pain Cardiovascular: Cardiovascular: Denies chest pain and Denies dyspnea Respiratory: Respiratory: Denies cough and Denies dyspnea Gastrointestinal: Gastrointestinal: Denies abdominal pain, Denies diarrhea, Denies nausea and Denies vomiting Genitourinary: Genitourinary: Denies hematuria and Denies dysuria Musculoskeletal: Musculoskeletal: Reports back pain and Denies neck pain Neurologic: Denies headache(s) and Reports weakness PMFSH Past Medical History Medical History Anemia Anxiety Chronic diastolic congestive heart failure Echocardiogram in October 2018 demonstrated hyperdynamic left ventricular function with an ejection fraction of 71%, moderate left atrial enlargement, and grade 2 diastolic dysfunction. Chronic pain syndrome Chronic wound infection of abdomen On long-term doxycycline b.i.d. Current use of fdc anticoagulation On Xarelto for stroke prophylaxis given paroxysmal atrial fibrillation. Depression Essential hypertension Gastroesophageal reflux disease Hyperlipidemia Hypothyroidism (acquired) Macular degeneration Morbid obesity Obstructive sleep apnea on CPAP Overactive bladder Paroxysmal atrial fibrillation On Xarelto for stroke prophylaxis. Pneumonia due to COVID-19 virus (~03/2020) Postsurgical hypothyroidism Restless leg syndrome Shingles Thyroid cancer Status post thyroidectomy. Surgical History Surgical History H/O bilateral cataract extraction History of appendectomy (~2003) Complicated postoperative course with chronic midline abdominal wound. History of hernia repair History of orthopedic surgery ORIF right lower extr
[2021-02-27 22:08] LABS: Troponin I < 0.012 ng/mL (0.000-0.034)
[2021-02-27 22:32] LABS: NT Pro B Type Natriuretic Pept 334 pg/mL (5-100)
[2021-02-28] VITALS (12 sets, daily range): BP systolic 144–172; BP diastolic 84–101; PULSE 65–97; RESP 14–22; TEMP 36.2–36.6; O2SAT 95–98; BMI 51.4; BMI 51.1
[2021-02-28] MEDS: oxyCODONE/ACETAMINOPHEN (*CRX) 5-325 MG TABLET 1 TABLET PO ×3 (02:26→19:54)
--- NOTE | 2021-02-28 02:50 | PC.NURSE ---
This patient, Michelle Rogel, was admitted to 3 [facility] Surg Room 301-01 @0245. Patient/family oriented to hospital policies and general routines including ID bracelet, bed and alarms, visiting hours, pain management, procedures, bathroom and other care routines, personal items, smoking policy, room service/diet, and visiting hours. Information on how to activate the Rapid Response Team has been discussed. Patient/Family are encouraged to report perceived risks to care and to ask questions if they do not understand what they are told or what they should do.
--- NOTE | 2021-02-28 04:38 | ECG_ITS ---
Measurements Intervals [place] Rate: 83 P: DC: 0 QRS: 61 QRSD: 92 T: 165 QT: 390 QTc: 460 Interpretive Statements ATRIAL FIBRILLATION NONSPECIFIC ST & T-WAVE ABNORMALITY- DIFFUSE LEADS BASELINE ARTIFACT- I, II, AVR, V1-V6 ABNORMAL ECG Electronically Signed On 02-28-2021 8:31:28 CDT by Saji Lyons D.O.
--- NOTE | 2021-02-28 04:54 | PM.IMHP ---
H&P: HPI History of Present Illness Date/Time: 02/28/21 04:54 Chief Complaint: WEAKNESS Narrative: THIS IS A 80-YEAR-OLD FEMALE WITH PAST MEDICAL HISTORY SIGNIFICANT FOR MORBID OBESITY, HYPERTENSION, TYPE 2 DIABETES MELLITUS, CHRONIC ABDOMINAL WOUND, NONHEALING, PAROXYSMAL ATRIAL FIBRILLATION, OBSTRUCTIVE SLEEP APNEA, ON CPAP AT NIGHTTIME RESTLESS LEG SYNDROME, GASTROESOPHAGEAL REFLUX DISEASE, MACULAR DEGENERATION, CHRONIC PAIN SYNDROME: CHRONIC DIASTOLIC HEART FAILURE. PATIENT PRESENTED TO THE EMERGENCY ROOM DUE TO GENERALIZED WEAKNESS ,GENERALIZED MALAISE, CHILLS, DENIES ANY PAIN OR BURNING WITH URINATION, DENIES ANY NAUSEA OR VOMITING ABDOMINAL PAIN, NO COUGH NO SPUTUM PRODUCTION, NO SHORTNESS OF BREATH, NO PND, NO ORTHOPNEA. PATIENT HAS BEEN IN HER USUAL STATE OF HEALTH UP UNTIL 2-3 DAYS AGO. PRELIMINARY WORKUP WAS SIGNIFICANT URINALYSIS WITH NUMEROUS WBC'S A CHEST X-RAY WITH BIBASILAR INFILTRATES ABG SHOWED A PH OF 7.37 PCO2 OF 48 PO2 OF 109. DECISION WAS MADE TO ADMIT THE PATIENT FOR FURTHER TREATMENT MANAGEMENT AND EVALUATE. Review of Systems Review of Systems: GENERALIZED WEAKNESS Constitutional: Constitutional: Reports chills, Reports fatigue, Reports fever(s), Reports lethargy, Reports malaise, Denies night sweats and Reports weakness Eyes: Eyes: Denies change in vision ENT: Denies dysphagia, Denies nasal congestion, Denies nasal discharge, Denies nasal obstruction and Denies odynophagia Cardiovascular: Cardiovascular: Denies irregular heart rhythm, Denies lightheadedness, Denies radiating jaw, neck or arm pain, Denies palpitations, Denies dyspnea on exertion and Denies orthopnea Respiratory: Respiratory: Denies cough Gastrointestinal: Gastrointestinal: Denies dyspepsia, Denies diarrhea, Denies nausea and Denies vomiting Genitourinary: Genitourinary: Reports no additional female genitourinary complaints Musculoskeletal: Musculoskeletal: Reports no additional musculoskeletal complaints Integumentary/Breasts: Skin/Breast: Reports system reviewed and no additional complaints, except as docu Neurologic: Reports system reviewed and no additional complaints, except as documented Psychiatric: Psychiatric: Reports no additional psychiatric complaints Endocrine: Endocrine: Reports no additional endocrine complaints Hematologic/Lymphatic: Hematologic/Lymphatic: Reports no additional hematologic/lymphatic complaints Allergic/Immunologic: Allergic/Immunologic: Reports no additional allergic/immunologic complaints FOR[facility]LY [facility], [facility] Past Medical History Medical History (Updated 02/28/21 @ 05:06 by Patrick Evans MD) Anemia Anxiety Chronic diastolic congestive heart failure Echocardiogram in October 2018 demonstrated hyperdynamic left ventricular function with an ejection fraction of 71%, moderate left atrial enlargement, and grade 2 diastolic dysfunction. Chronic pain syndrome Chronic wound infection of abdomen On long-term doxycycline b.i.d. 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 Depression Essential hypertension Gastroesophageal reflux disease Hyperlipidemia Hypothyroidism (acquired) Macular degeneration Morbid obesity Obstructive sleep apnea on CPAP Overactive bladder Paroxysmal atrial fibrillation On Xarelto for stroke prophylaxis. Pneumonia due to COVID-19 virus (~03/2020) Postsurgical hypothyroidism Restless leg syndrome Shingles Thyroid cancer Status post thyroidectomy. Surgical History Surgical History H/O bilateral cataract extraction History of appendectomy (~2003) Complicated postoperative course with chronic midline abdominal wound. History of hernia repair History of orthopedic surgery ORIF right lower extremity fracture. History of ovarian cystectomy History of spinal surgery History of thyroidectomy History of total abdominal hysterectomy History of total bilateral knee replacement
[2021-02-28] MEDS: ALBUTEROL SULFATE NEB 2.5 MG/0.5 ML INH INHALATION (05:16)
[2021-02-28] MEDS: IPRATROPIUM BR 0.02% INH SOLN 0.5 MG/2.5 ML VIAL INHALATION (05:16)
[2021-02-28] MEDS: FUROSEMIDE INJ 40 MG/4 ML VIAL IV PUSH (06:16)
[2021-02-28] MEDS: PANTOPRAZOLE 40 MG TABLET PO (08:20)
[2021-02-28] MEDS: buPROPion HCL SR (12 HR) 150 MG TAB PO ×2 (08:20→20:01)
[2021-02-28] MEDS: MIRABEGRON 25 MG ER TABLET PO (08:20)
[2021-02-28] MEDS: VALSARTAN 160 MG TABLET 320 MG PO (08:20)
[2021-02-28] MEDS: GABAPENTIN 100 MG CAPSULE PO ×2 (08:20→17:45)
[2021-02-28] MEDS: ATORVASTATIN 40 MG TABLET PO (08:20)
[2021-02-28] MEDS: FAMOTIDINE 20 MG TABLET 40 MG PO (08:21)
[2021-02-28] MEDS: LEVOTHYROXINE SODIUM 150 MCG TABLET PO (08:21)
[2021-02-28] MEDS: OPTI-GEN TAB 1 TABLET PO ×2 (08:21→17:45)
[2021-02-28] MEDS: CHOLECALCIFEROL 1,000 UNITS TABLET 2000 UNITS PO (08:21)
[2021-02-28] MEDS: METHOTREXATE 2.5 MG TAB (*CHEMO) PO (08:21)
[2021-02-28] MEDS: TOLNAFTATE 1% POWDER 45 GM BTL 1 APPLIC TOPICAL ×2 (13:24→20:03)
[2021-02-28] MEDS: MUPIROCIN 2% OINT 22 GM TUBE 1 APPLIC TOPICAL (13:24)
[2021-02-28] MEDS: RIVAROXABAN 20 MG TABLET PO (17:45)
[2021-02-28] MEDS: MIRTAZAPINE SOLTAB 15 MG TAB.DISPER PO (20:02)
[2021-02-28] MEDS: PRAMIPEXOLE 0.25 MG TABLET PO (20:02)
[2021-02-28] MEDS: traZODone HCL 50 MG TABLET 200 MG PO (20:02)
[2021-02-28] MEDS: DULoxetine HCL 30 MG CAPSULE.DR PO (20:04)
[2021-02-28] MEDS: PRAMIPEXOLE 1 MG TABLET PO (20:05)
[2021-03-01] VITALS (18 sets, daily range): BP systolic 130–151; BP diastolic 67–121; PULSE 73–126; RESP 15–24; TEMP 36.4–36.7; O2SAT 90–98
[2021-03-01] MEDS: clonazePAM (*CRX) 0.5 MG TABLET 1 MG PO ×3 (00:30→20:17)
[2021-03-01] MEDS: oxyCODONE/ACETAMINOPHEN (*CRX) 5-325 MG TABLET 1 TABLET PO (05:45)
[2021-03-01] MEDS: LEVOTHYROXINE SODIUM 150 MCG TABLET PO (05:46)
[2021-03-01] MEDS: buPROPion HCL SR (12 HR) 150 MG TAB PO ×2 (09:13→20:14)
[2021-03-01] MEDS: VALSARTAN 160 MG TABLET 320 MG PO (09:13)
[2021-03-01] MEDS: FAMOTIDINE 20 MG TABLET 40 MG PO (09:14)
[2021-03-01] MEDS: GABAPENTIN 100 MG CAPSULE PO ×2 (09:14→18:06)
[2021-03-01] MEDS: METHOTREXATE 2.5 MG TAB (*CHEMO) PO (09:14)
[2021-03-01] MEDS: CHOLECALCIFEROL 1,000 UNITS TABLET 2000 UNITS PO (09:14)
[2021-03-01] MEDS: MIRABEGRON 25 MG ER TABLET PO (09:14)
[2021-03-01] MEDS: PANTOPRAZOLE 40 MG TABLET PO (09:14)
[2021-03-01] MEDS: ATORVASTATIN 40 MG TABLET PO (09:14)
[2021-03-01] MEDS: FERROUS GLUCONATE 324 MG TABLET PO (09:14)
[2021-03-01] MEDS: TOLNAFTATE 1% POWDER 45 GM BTL 1 APPLIC TOPICAL ×2 (09:15→20:18)
[2021-03-01] MEDS: MUPIROCIN 2% OINT 22 GM TUBE 1 APPLIC TOPICAL (09:23)
[2021-03-01] MEDS: OPTI-GEN TAB 1 TABLET PO ×2 (09:23→18:06)
[2021-03-01] MEDS: EUCERIN CREAM 120 GM JAR 1 APPLIC TOPICAL ×2 (14:11→20:19)
[2021-03-01] MEDS: METOPROLOL TARTRATE INJ 5 MG/5 ML VIAL 2.5 MG IV PUSH ×2 (14:11→17:34)
--- NOTE | 2021-03-01 15:24 | PHAR ---
Home medication Trospium 20mg tablets seen in pharmacy and returned to [address] [place] [address] unit
--- NOTE | 2021-03-01 17:08 | PM.IMPN ---
Progress Note: A&P Assessment and Plan (1) UTI (urinary tract infection): Qualifiers: Hematuria presence: without hematuria Urinary tract infection type: site unspecified Qualified Code(s): N39.0 - Urinary tract infection, site not specified Code(s): N39.0 - Urinary tract infection, site not specified Status: Acute (2) Weakness: Code(s): R53.1 - Weakness Status: Acute (3) Chronic diastolic congestive heart failure: Code(s): I50.32 - Chronic diastolic (congestive) heart failure Status: Acute (4) Community acquired pneumonia: Code(s): J18.9 - Pneumonia, unspecified organism Status: Acute (5) COPD (chronic obstructive pulmonary disease): Code(s): J44.9 - Chronic obstructive pulmonary disease, unspecified Status: Acute (6) Obstructive sleep apnea on CPAP: Code(s): G47.33 - Obstructive sleep apnea (adult) (pediatric); Z99.89 - Dependence on other enabling machines and devices Status: Chronic (7) Paroxysmal atrial fibrillation: Code(s): I48.0 - Paroxysmal atrial fibrillation Status: Chronic (8) Generalized weakness: Code(s): R53.1 - Weakness Status: Acute (9) Current use of intermediate anticoagulation: Code(s): Z79.01 - care home (current) use of anticoagulants Status: Chronic Assessment and Plan: 03/01/21 pt w uncontrolled HR late dose of diltiazem received responds to low dose BB Pulmonary edema secondary to uncontrolled atrial fibrillation Lasix 40 IV x1 [place] in place strict Is/Os Consult cardiology Gram-negative bacteria in urine patient on azithromycin add Rocephin VTEP w OAC Subjective Date/time seen: 03/01/21 17:08 pt w uncontrolled HR late dose of diltiazem received responds to low dose BB At the time my interview patient is in AFib RVR and is symptomatic reporting dizziness chest pain. Symptoms resolved with administration of metoprolol and Lasix Exam Narrative: GEN: NAD, AAOx3, cooperative, obese HEENT: NCAT, MMM, EOMI Neck: no JVD Heart: IRR Lungs: Audible wheezing, crackles, decreased breath sounds at bases Abd: soft, NT, ND, bowel sounds normoactive Ext: moves all, no cyanosis, no clubbing, no edema Neuro: slow cognition, moves all extremities equally, unsteady gait Psych: mood reduced, affect congruent flattened, poor eye contact Objective Data Vital Signs Vital Signs: Vital Signs - 24 hr 02/28/21 20:00 02/28/21 20:49 02/28/21 21:00 Temperature 97.9 F Pulse Rate 94 93 Respiratory Rate 20 Blood Pressure 172/100 H 146/84 H Pulse Oximetry 96 03/01/21 00:00 03/01/21 04:00 03/01/21 06:00 Temperature 97.5 F L Pulse Rate 96 109 H 73 Respiratory Rate 20 Blood Pressure 138/89 Pulse Oximetry 97 03/01/21 09:14 03/01/21 09:40 03/01/21 14:00 Temperature 98.1 F Pulse Rate 96 Respiratory Rate 24 H Blood Pressure 151/121 H Pulse Oximetry 98 95 97 03/01/21 14:11 Temperature Pulse Rate 126 H Respiratory Rate Blood Pressure Pulse Oximetry Intake/Output Intake/Output: Intake & Output 02/26/21 02/27/21 02/28/21 03/01/21 23:59 23:59 23:59 23:59 Intake Total 960 710 Output Total 1745 800 Balance -785 -90 Meds/Results Medications: Active Medications Generic Name Dose Route Start Last Admin Trade Name Freq PRN Reason Stop Dose Admin Atorvastatin Calcium 40 mg 02/28/21 09:00 03/01/21 09:14 Atorvastatin 40 Mg Tablet PO 40 mg DAILY DARWIN Administration Bupropion HCl 150 mg 02/28/21 09:00 03/01/21 09:13 Bupropion Hcl Sr (12 Hr) 150 Mg Tab PO 150 mg Q12HR DARWIN Administration Calcium Carbonate 500 mg 02/28/21 09:00 03/01/21 09:13 Calcium/Vitamin D 500 Mg Tablet PO 500 mg DAILY DARWIN Administration Clonazepam 1 mg 02/28/21 04:52 03/01/21 09:13 Clonazepam (*Crx) 0.5 Mg Tablet PO 1 mg DAILY PRN Administration Anxiety Diltiazem HCl 240 mg 03/01/21 13:50 02/11
[2021-03-01] MEDS: FUROSEMIDE INJ 40 MG/4 ML VIAL IV PUSH (17:43)
--- NOTE | 2021-03-01 17:43 | ECG_ITS ---
Measurements Intervals [place] Rate: 104 P: NH: 0 QRS: 42 QRSD: 84 T: 180 QT: 355 QTc: 468 Interpretive Statements ATRIAL FIBRILLATION WITH RAPID VENTRICULAR RESPONSE BASELINE WANDER- I, II, AVR, AVL, AVF, V1-V6 ABNORMAL ECG Electronically Signed On 03-02-2021 20:01:33 CDT by Saji Lyons D.O.
--- NOTE | 2021-03-01 17:45 | PC.NURSE ---
Dr Garcia notified of increased heart rate at [phone] Garcia at bedside 1743.
[2021-03-01] MEDS: RIVAROXABAN 20 MG TABLET PO (18:07)
[2021-03-01] MEDS: PRAMIPEXOLE 1 MG TABLET PO (20:13)
[2021-03-01] MEDS: PRAMIPEXOLE 0.25 MG TABLET PO (20:13)
[2021-03-01] MEDS: MIRTAZAPINE SOLTAB 15 MG TAB.DISPER PO (20:13)
[2021-03-01] MEDS: traZODone HCL 50 MG TABLET 200 MG PO (20:14)
[2021-03-01] MEDS: DULoxetine HCL 30 MG CAPSULE.DR PO (20:14)
[2021-03-01 22:34] LABS: NT Pro B Type Natriuretic Pept 2630 pg/mL (5-100)
[2021-03-01 23:32] LABS: Troponin I < 0.012 ng/mL (0.000-0.034)
[2021-03-02] VITALS (13 sets, daily range): BP systolic 119–146; BP diastolic 75–86; PULSE 61–99; RESP 18–20; TEMP 36.4–36.9; O2SAT 96–98
[2021-03-02 02:14] LABS: Troponin I < 0.012 ng/mL (0.000-0.034)
[2021-03-02] MEDS: LEVOTHYROXINE SODIUM 150 MCG TABLET PO (05:48)
[2021-03-02 06:33] LABS: Basophils Percent Auto 0.2 % (0.2-1.2); Eosinophils Absolute Auto 0.1 K/mm3 (0-0.3); Hematocrit 41.4 % (37.0-47.0); Hemoglobin 13.6 g/dL (12.0-15.0); Immature Granulocyte Absolute 0.02 K/mm3 (0.00-0.031); Immature Granulocyte Percent A 0.3 % (0-0.5); Lymphocytes Percent Auto 9.3 % (18.3-44.2); Mean Corpuscular HGB Conc 32.9 g/dl (32-36); Mean Corpuscular Hemoglobin 33.4 pg (26-34); Mean Corpuscular Volume 101.7 fl (80-100); Mean Platelet Volume 9.5 fl (7.4-10.4); Monocytes Absolute Auto 0.5 K/mm3 (0.1-0.6); Monocytes Percent Auto 7.3 % (2.6-8.5); Neutrophils Absolute Auto 5.2 K/mm3 (1.3-6.7); Neutrophils Percent Auto 80.9 % (45.5-73.1); Platelet Count Result 159 k/mm3 (150-375); Red Blood Count 4.07 M/mm3 (4.2-5.4); Red Cell Distribution Width 15.4 % (11.5-14.5); White Blood Count 6.4 K/mm3 (4.5-10.0)
[2021-03-02 06:49] LABS: Alanine Aminotransferase 23 U/L (4-35); Albumin Level 3.4 g/dL (3.5-5.1); Alkaline Phosphatase 116 U/L (38-126); Aspartate Amino Transferase 32 U/L (14-36); Bilirubin,Total 0.7 mg/dL (0.2-1.3); Blood Urea Nitrogen 13 mg/dL (7-17); Calcium 8.9 mg/dL (8.4-10.2); Carbon Dioxide > 40 mmol/L (22-30); Chloride 96 mmol/L (98-107); Estimated CRCL calculation 60 ml/min; Estimated Glomerular Filt Rate > 60; Glucose 97 mg/dL (65-110); Magnesium 1.9 mg/dL (1.6-2.3); Potassium 3.3 mmol/L (3.4-5.0); Sodium 141 mmol/L (137-145)
[2021-03-02 07:03] LABS: Troponin I < 0.012 ng/mL (0.000-0.034)
[2021-03-02] MEDS: CHOLECALCIFEROL 1,000 UNITS TABLET 2000 UNITS PO (09:00)
[2021-03-02] MEDS: FAMOTIDINE 20 MG TABLET 40 MG PO (09:00)
[2021-03-02] MEDS: buPROPion HCL SR (12 HR) 150 MG TAB PO ×2 (09:00→20:40)
[2021-03-02] MEDS: FERROUS GLUCONATE 324 MG TABLET PO (09:00)
[2021-03-02] MEDS: ATORVASTATIN 40 MG TABLET PO (09:01)
[2021-03-02] MEDS: VALSARTAN 160 MG TABLET 320 MG PO (09:01)
[2021-03-02] MEDS: GABAPENTIN 100 MG CAPSULE PO ×2 (09:01→16:45)
[2021-03-02] MEDS: MIRABEGRON 25 MG ER TABLET PO (09:01)
[2021-03-02] MEDS: PANTOPRAZOLE 40 MG TABLET PO (09:01)
[2021-03-02] MEDS: OPTI-GEN TAB 1 TABLET PO ×2 (09:01→16:45)
[2021-03-02] MEDS: METHOTREXATE 2.5 MG TAB (*CHEMO) PO (09:03)
[2021-03-02] MEDS: FUROSEMIDE INJ 40 MG/4 ML VIAL 20 MG IV PUSH (09:03)
[2021-03-02] MEDS: TOLNAFTATE 1% POWDER 45 GM BTL 1 APPLIC TOPICAL ×2 (09:04→20:41)
[2021-03-02] MEDS: EUCERIN CREAM 120 GM JAR 1 APPLIC TOPICAL ×2 (09:04→20:42)
[2021-03-02] MEDS: MUPIROCIN 2% OINT 22 GM TUBE 1 APPLIC TOPICAL (09:04)
[2021-03-02] MEDS: oxyCODONE/ACETAMINOPHEN (*CRX) 5-325 MG TABLET 1 TABLET PO ×2 (09:14→16:45)
--- NOTE | 2021-03-02 10:32 | PM.CNCAR ---
Assessment and Plan Additional Plan - acute on chronic diastolic heart failure exacerbation - paroxysmal atrial fibrillation currently in atrial fibrillation with controlled heart rate on anticoagulation - urinary tract infection IV antibiotics - morbid obesity - sleep apnea on CPAP this is a 80-year-old female was admitted to the hospital because of weakness for a couple days along with increasing shortness of breath. Her x-ray suggestion of pulmonary vascular congestion urinary cultures grew Proteus and currently receiving IV antibiotics. At this time she is receiving Lasix 40 mg IV daily. Recommend to increase the Lasix to 40 mg IV b.i.d. with monitoring renal function. - In regards to atrial fibrillation heart rate is controlled. Continue diltiazem to 40 mg daily. Add metoprolol 25 mg b.i.d.. Continue Xarelto 20 mg daily. History of Present Illness History of Present Illness Consult date/time: Date of xvbwdav82/21/21 10:32 Requesting physician: Cristina Garcia MD Consult reason: atrial fibrillation Reason For Visit: Weakness, UTI Narrative: this 80-year-old female with past medical history of paroxysmal atrial fibrillation on Xarelto, Diastolic heart failure,hyperlipidemia, hypertension, anxiety, COVID March 2020, chronic nonhealing abdominal wound, morbid obesity, sleep apnea on CPAP, restless leg syndrome, was admitted to the hospital with generalized weakness and fatigue for 2 days. currently being treated for urinary tract infection, possible pneumonia. Also getting 40 mg IV Lasix to treat acute heart failure exacerbation. she stated that she does have increasing shortness of breath for the last few days. Denies lower limb edema. She gets dizzy when she sits up. Denies chest pain,. She has chronic dry cough. She is compliant using CPAP. Urine culture positive for Proteus. serum creatinine 0.8, brain atretic peptide 2600, potassium today 3.3. EKG reviewed and was myself shows atrial fibrillation at heart rate 83 beats per minute. Chest x-ray review analyzed myself shows cardiomegaly, mild vascular congestion. Review of Systems Constitutional: Constitutional: Denies chills, Denies fever(s), Reports lethargy, Reports malaise and Denies poor appetite Eyes: Eyes: Denies eye discharge, Denies loss of vision, Denies eye pain and Denies photophobia ENT: Denies dizziness, Denies epistaxis, Denies nasal congestion and Denies sore throat Cardiovascular: Cardiovascular: Denies chest pain, Denies syncope, Denies pedal edema, Denies leg edema, Denies palpitations, Denies dyspnea, Reports dyspnea on exertion and Denies orthopnea Respiratory: Respiratory: Reports cough, Reports dyspnea, Denies dyspnea on exertion, Reports snoring and Denies wheezing Gastrointestinal: Gastrointestinal: Denies abdominal pain, Denies diarrhea, Denies nausea and Denies vomiting Comments: Chronic open wound on the abdomen wall Genitourinary: Genitourinary: Denies hematuria, Denies genital lesions and Denies dysuria Musculoskeletal: Musculoskeletal: Denies arthralgias, Denies joint swelling and Denies numbness Integumentary/Breasts: Skin/Breast: Denies pruritus and Denies rash Neurologic: Denies dizziness, Denies syncope, Denies loss of vision and Denies numbness Psychiatric: Psychiatric: Denies anxiety and Denies depression Endocrine: Endocrine: Denies cold intolerance, Denies heat intolerance and Denies palpitations Hematologic/Lymphatic: Hematologic/Lymphatic: Denies easy bleeding and Denies easy bruising Allergic/Immunologic: Allergic/Immunologic: Denies urticaria and Denies wheezing PMFSH Past Medical History Medical History Anemia Anxiety Chronic diastolic congestive heart failure Echocardiogram in October 2018 demonstrated hyperdynamic left ventricular function with an ejection fraction of 71%, moderate left atrial enlargement, and grade 2 diastolic dysfunction.
[2021-03-02] MEDS: ACETAMINOPHEN 325 MG TABLET 650 MG PO (10:58)
--- NOTE | 2021-03-02 15:31 | PM.IMPN ---
Progress Note: A&P Assessment and Plan (1) UTI (urinary tract infection): Qualifiers: Hematuria presence: without hematuria Urinary tract infection type: site unspecified Qualified Code(s): N39.0 - Urinary tract infection, site not specified Code(s): N39.0 - Urinary tract infection, site not specified Status: Acute (2) Weakness: Code(s): R53.1 - Weakness Status: Acute (3) Chronic diastolic congestive heart failure: Code(s): I50.32 - Chronic diastolic (congestive) heart failure Status: Acute (4) Community acquired pneumonia: Code(s): J18.9 - Pneumonia, unspecified organism Status: Acute (5) COPD (chronic obstructive pulmonary disease): Code(s): J44.9 - Chronic obstructive pulmonary disease, unspecified Status: Acute (6) Obstructive sleep apnea on CPAP: Code(s): G47.33 - Obstructive sleep apnea (adult) (pediatric); Z99.89 - Dependence on other enabling machines and devices Status: Chronic (7) Paroxysmal atrial fibrillation: Code(s): I48.0 - Paroxysmal atrial fibrillation Status: Chronic (8) Current use of manager terminal anticoagulation: Code(s): Z79.01 - 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 She will be continued on diltiazem with a dose of to 40 mg once a day. Metoprolol has been aided with 25 mg twice a day dosing. Continue Xarelto. Lasix dose has been increased to 40 mg IV twice a day. Continue to monitor renal parameters and electrolytes. Strict intake output record and daily weight. Her bicarb is elevated. I will add acetazolamide 500 mg IV twice a day for 4 doses. Continue to monitor her BMP. She does not have any significant respiratory symptoms other than shortness of breath which can be explained based on her acute on chronic diastolic congestive heart failure exacerbation. She does not seem to have acute infective process involving lungs. I will stop azithromycin. Continue ceftriaxone for urinary tract infection with Proteus mirabilis. It is sensitive to ceftriaxone. PT OT had been consulted for discharge recommendation. Continue oxygen with 2 L which is her baseline. She was encouraged to continue using CPAP at nighttime. Continue Lipitor. Continue Diovan. Subjective Date/time seen: 03/02/21 15:31 She is complaining of cough that is her baseline and her cough is not worse more than her baseline. She had a net negative fluid balance of about 2 L in the last 24 hour. She continued to be on 2 L of oxygen which is her baseline as well. She is compliant with the use of CPAP. She was evaluated by Cardiology for her CHF and atrial fibrillation with rapid ventricular rate. Review of Systems Review of Systems: All systems reviewed & are unremarkable except as noted in HPI and below Exam Narrative: GEN: NAD, AAOx3, cooperative, obese Heart: S1-S2. No murmur irregular irregular heart rate Lungs: Crackles bilaterally. Abd: soft, NT, ND Ext: Peripheral edema positive. Neuro: slow cognition, moves all extremities equally, unsteady gait Objective Data Vital Signs Vital Signs: Vital Signs - 24 hr 03/01/21 16:00 03/01/21 17:34 03/01/21 18:25 Temperature Pulse Rate 116 H 126 H 98 Respiratory Rate 16 Blood Pressure Pulse Oximetry 03/01/21 18:34 03/01/21 19:09 03/01/21 20:00 Temperature Pulse Rate 97 96 93 Respiratory Rate 16 Blood Pressure Pulse Oximetry 03/01/21 20:33 03/01/21 21:29 03/01/21 22:50 Temperature 36.6 C Pulse Rate 82 85 84 Respiratory Ra
[2021-03-02] MEDS: FUROSEMIDE INJ 40 MG/4 ML VIAL IV PUSH (16:45)
[2021-03-02] MEDS: RIVAROXABAN 20 MG TABLET PO (16:46)
[2021-03-02] MEDS: traZODone HCL 50 MG TABLET 200 MG PO (20:40)
[2021-03-02] MEDS: MIRTAZAPINE SOLTAB 15 MG TAB.DISPER PO (20:40)
[2021-03-02] MEDS: PRAMIPEXOLE 0.25 MG TABLET PO (20:40)
[2021-03-02] MEDS: PRAMIPEXOLE 1 MG TABLET PO (20:40)
[2021-03-02] MEDS: METOPROLOL TARTRATE 25 MG TABLET PO (20:40)
[2021-03-02] MEDS: DULoxetine HCL 30 MG CAPSULE.DR PO (20:41)
[2021-03-02] MEDS: acetaZOLAMIDE SODIUM FOR INJ 500 MG VIAL IV PUSH (20:41)
[2021-03-02] MEDS: clonazePAM (*CRX) 0.5 MG TABLET 1 MG PO (20:55)
[2021-03-03] VITALS (16 sets, daily range): BP systolic 108–142; BP diastolic 72–87; PULSE 79–112; RESP 14–22; TEMP 35.8–37.1; O2SAT 94–97
[2021-03-03 06:02] LABS: Basophils Percent Auto 0.3 % (0.2-1.2); Eosinophils Absolute Auto 0.2 K/mm3 (0-0.3); Eosinophils Percent Auto 2.2 % (0-4.4); Hematocrit 42.9 % (37.0-47.0); Hemoglobin 13.9 g/dL (12.0-15.0); Immature Granulocyte Absolute 0.04 K/mm3 (0.00-0.031); Immature Granulocyte Percent A 0.5 % (0-0.5); Lymphocytes Absolute Auto 0.66 K/mm3 (0.9-3.2); Lymphocytes Percent Auto 8.7 % (18.3-44.2); Mean Corpuscular HGB Conc 32.4 g/dl (32-36); Mean Corpuscular Hemoglobin 34.1 pg (26-34); Mean Corpuscular Volume 105.1 fl (80-100); Mean Platelet Volume 9.6 fl (7.4-10.4); Monocytes Absolute Auto 0.6 K/mm3 (0.1-0.6); Monocytes Percent Auto 8.3 % (2.6-8.5); Neutrophils Absolute Auto 6.1 K/mm3 (1.3-6.7); Platelet Count Result 161 k/mm3 (150-375); Red Blood Count 4.08 M/mm3 (4.2-5.4); Red Cell Distribution Width 15.5 % (11.5-14.5); White Blood Count 7.6 K/mm3 (4.5-10.0)
[2021-03-03 06:13] LABS: Anion Gap 5 mmol/L (8-16); Blood Urea Nitrogen 12 mg/dL (7-17); Calcium 8.9 mg/dL (8.4-10.2); Carbon Dioxide 39 mmol/L (22-30); Chloride 94 mmol/L (98-107); Estimated CRCL calculation 53 ml/min; Estimated Glomerular Filt Rate > 60; Glucose 104 mg/dL (65-110); Magnesium 1.8 mg/dL (1.6-2.3); Potassium 3.5 mmol/L (3.4-5.0); Sodium 138 mmol/L (137-145)
[2021-03-03] MEDS: LEVOTHYROXINE SODIUM 150 MCG TABLET PO (06:23)
--- NOTE | 2021-03-03 08:17 | PM.PNCARD ---
Progress Note: A&P Additional Plan 80-year-old lady with: Chronic atrial fibrillation heart rate is well controlled with the combination of diltiazem and low-dose metoprolol. I do not believe her atrial fib had anything to do with her falling on Saturday. On examination today she is not at all volume overloaded she has no peripheral edema and clear sounding lungs. Going to stop her IV furosemide and put her back on oral furosemide. I will order 40 mg daily. She was on 80 mg every other day at home which seems like a strange regimen. We will follow with you while she is in the hospital she has follow-up of her atrial fibrillation established at [facility] with 1 of the physicians down there. Mega Sharp MD [facility] Subjective Date/time seen: Date of service: 03/03/21 08:17 Interval history: Follow-up visit in this 80-year-old lady with: Chronic atrial fibrillation being managed with rate control and anticoagulation. She entered the hospital after falling at home this morning with generalized weakness. She is also morbidly obese with a BMI of 51. Consulted to see her a couple of days ago because of concerns regarding heart rate control and volume overload. Apparently she has the diagnosis of diastolic dysfunction as well. This morning the patient appears to be stable clinically she is lying flat in bed in no distress she is asking if she can sit in a chair today. No shortness of breath. Cannot recall any cardiac symptoms prior to falling on Saturday at home Exam Const: General: comfortable and no acute distress Other: Elderly obese lady supine in bed no distress HENMT: Mouth: Yes moist mucous membranes Eyes: Sclera: sclerae normal Pupils: Equal, round and reactive pupils present Neck: Neck: supple and no JVD Other: Difficult to assess for JVD given her body habitus Resp: Effort & Inspection: normal respiratory effort Other: Breath sounds are essentially clear to the best of my ability to examine anteriorly. Cardio: Rhythm: abnormal rhythm irregularly irregular GI: GI Palp: Yes Soft to palpation Auscultation: normal bowel sounds Skin: General skin exam: normal color Neuro: Cognition (Neuro): normal cognition Extrem: Other: No significant peripheral edema at all Objective Data Vital Signs Vital Signs: Vital Signs - 24 hr 03/02/21 09:01 03/02/21 12:00 03/02/21 14:00 Temperature 36.4 C L Pulse Rate 94 79 Respiratory Rate 20 Blood Pressure 146/83 H Pulse Oximetry 96 98 03/02/21 16:00 03/02/21 20:00 03/02/21 20:40 Temperature Pulse Rate 94 99 94 Respiratory Rate Blood Pressure Pulse Oximetry 03/02/21 21:56 03/02/21 22:20 03/03/21 00:00 Temperature 36.6 C Pulse Rate 61 83 80 Respiratory Rate 20 Blood Pressure 119/75 Pulse Oximetry 97 97 03/03/21 04:00 03/03/21 04:13 03/03/21 05:11 Temperature 37.1 C Pulse Rate 86 112 H 83 Respiratory Rate 20 Blood Pressure 131/85 Pulse Oximetry 95 94 Intake/Output Intake/Output: Intake & Output 02/28/21 03/01/21 03/02/21 03/03/21 23:59 23:59 23:59 23:59 Intake Total 960 1950 1964 550 Output Total 1745 2100 4600 1300 [facility] -785 -150 -2636 -750 Meds/Results Medications: Active Medications Generic Name Dose Route Start Last Admin Trade Name Freq PRN Reason Stop Dose Admin Acetaminophen 650 mg 03/02/21 10:47 03/02/21 10:58 Acetaminophen 325 Mg Tablet PO 650 mg Q6H PRN Administration Mild Pain (1-3) or Fever Acetazolamide Sodium 500 mg 03/02/21 21:00 03/02/21 20:41 Acetazolamide Sodium For Inj 500 Mg Vial IV PUSH 03/04/21 09:01 500 mg Q12HR DARWIN Administration Atorvastatin Calcium 40 mg 02/28/21 09:00 03/02/21 09:01 Atorvastatin 40 Mg Tablet PO 40 mg DAILY DARWIN Administration Bupropion HCl 150 mg 02/28/21 09:00 03/02/21 20:40 Bupropion Hcl Sr (12 Hr) 150 Mg Tab PO 150 mg Q12HR DARWIN Administration Calcium Carbonate 500 mg 02/28/21 09:00
[2021-03-03] MEDS: ATORVASTATIN 40 MG TABLET PO (08:32)
[2021-03-03] MEDS: OPTI-GEN TAB 1 TABLET PO ×2 (08:32→16:46)
[2021-03-03] MEDS: buPROPion HCL SR (12 HR) 150 MG TAB PO ×2 (08:33→20:28)
[2021-03-03] MEDS: CHOLECALCIFEROL 1,000 UNITS TABLET 2000 UNITS PO (08:33)
[2021-03-03] MEDS: FERROUS GLUCONATE 324 MG TABLET PO (08:34)
[2021-03-03] MEDS: FAMOTIDINE 20 MG TABLET 40 MG PO (08:35)
[2021-03-03] MEDS: acetaZOLAMIDE SODIUM FOR INJ 500 MG VIAL IV PUSH ×2 (08:35→20:46)
[2021-03-03] MEDS: GABAPENTIN 100 MG CAPSULE PO ×2 (08:36→16:46)
[2021-03-03] MEDS: METOPROLOL TARTRATE 25 MG TABLET PO ×2 (08:37→20:27)
[2021-03-03] MEDS: METHOTREXATE 2.5 MG TAB (*CHEMO) PO (08:37)
[2021-03-03] MEDS: MIRABEGRON 25 MG ER TABLET PO (08:37)
[2021-03-03] MEDS: VALSARTAN 160 MG TABLET 320 MG PO (08:39)
[2021-03-03] MEDS: oxyCODONE/ACETAMINOPHEN (*CRX) 5-325 MG TABLET 1 TABLET PO ×2 (08:44→20:43)
[2021-03-03] MEDS: FUROSEMIDE 40 MG TABLET PO (09:30)
--- NOTE | 2021-03-03 10:05 | WPDCDIQUERY2 ---
CDI Query Clarification Request -Community acquired pneumonia is on the problem list -03/02 progress note She does not seem to have acute infective process involving lungs. I will stop azithromycin documented Please clarify if pneumonia has been ruled in or ruled out. <Adeline Wallace RN - Last Filed: 03/03/21 10:07> Pneumonia ruled out. Her clinical presentation and laboratory/imaging data is not suggestive of any infective process involving the lungs. <Parish Mcguire MD - Last Filed: 03/03/21 13:23>
--- NOTE | 2021-03-03 11:33 | PCSTNOTE ---
Please refer to the Bedside Swallow Evaluation in the EMR. Please note, silent aspiration cannot be ruled out at bedside.
[2021-03-03] MEDS: TOLNAFTATE 1% POWDER 45 GM BTL 1 APPLIC TOPICAL ×2 (13:00→20:58)
[2021-03-03] MEDS: EUCERIN CREAM 120 GM JAR 1 APPLIC TOPICAL ×2 (13:00→20:57)
[2021-03-03] MEDS: MUPIROCIN 2% OINT 22 GM TUBE 1 APPLIC TOPICAL (13:00)
--- NOTE | 2021-03-03 13:24 | PM.IMPN ---
Progress Note: A&P Assessment and Plan (1) UTI (urinary tract infection): Qualifiers: Hematuria presence: without hematuria Urinary tract infection type: site unspecified Qualified Code(s): N39.0 - Urinary tract infection, site not specified Code(s): N39.0 - Urinary tract infection, site not specified Status: Acute (2) Weakness: Code(s): R53.1 - Weakness Status: Acute (3) Chronic diastolic congestive heart failure: Code(s): I50.32 - Chronic diastolic (congestive) heart failure Status: Acute (4) Community acquired pneumonia: Code(s): J18.9 - Pneumonia, unspecified organism Status: Acute (5) COPD (chronic obstructive pulmonary disease): Code(s): J44.9 - Chronic obstructive pulmonary disease, unspecified Status: Acute (6) Obstructive sleep apnea on CPAP: Code(s): G47.33 - Obstructive sleep apnea (adult) (pediatric); Z99.89 - Dependence on other enabling machines and devices Status: Chronic (7) Paroxysmal atrial fibrillation: Code(s): I48.0 - Paroxysmal atrial fibrillation Status: Chronic (8) Current use of emt intermediate anticoagulation: Code(s): Z79.01 - emt intermediate (current) use of anticoagulants Status: Chronic Assessment and Plan: 03/01/21 pt w uncontrolled HR late dose of diltiazem received responds to low dose BB Pulmonary edema secondary to uncontrolled atrial fibrillation Lasix 40 IV x1 [address] in place strict Is/Os Consult cardiology Gram-negative bacteria in urine patient on azithromycin add Rocephin VTEP w OAC 03/02/21: Cardiology consult recommendations appreciated. She will be continued on diltiazem with a dose of to 40 mg once a day. Metoprolol has been aided with 25 mg twice a day dosing. Continue Xarelto. Lasix dose has been increased to 40 mg IV twice a day. Continue to monitor renal parameters and electrolytes. Strict intake output record and daily weight. Her bicarb is elevated. I will add acetazolamide 500 mg IV twice a day for 4 doses. Continue to monitor her BMP. She does not have any significant respiratory symptoms other than shortness of breath which can be explained based on her acute on chronic diastolic congestive heart failure exacerbation. She does not seem to have acute infective process involving lungs. I will stop azithromycin. Continue ceftriaxone for urinary tract infection with Proteus mirabilis. It is sensitive to ceftriaxone. PT OT had been consulted for discharge recommendation. Continue oxygen with 2 L which is her baseline. She was encouraged to continue using CPAP at nighttime. Continue Lipitor. Continue Diovan. 03/03/21: Her Lasix has been switched to p.o. but I will give additional 2 doses of IV Lasix is I still feel that she is not euvolemic. She will resume her p.o. Lasix in the a.m. Strict intake output record and daily weight. Continue to monitor renal parameters and electrolytes. Continue acetazolamide for 2 more doses today. Repeat BMP in the a.m.. PT OT follow-up. DuoNebs will be continued. She is not having any active wheezing. Steroids not indicated from pulmonary perspective. Antibiotics have been stopped yesterday as she does not seem to have any pulmonary infection on clinical and laboratory/imaging data. I will repeat chest x-ray in the a.m.. She has mentioned about episodes of cough whenever she eats or drink. Speech service evaluated the patient and she did well and does not seem to have any evidence of aspiration. She can potentially be discharged in the a.m. based on PT OT evaluation. Seems that PT is recommending discharging home with services. Continue Xarelto. No evidence of any bleeding. Continue Diovan. Continue Lipitor Subjective Date/time seen: 03/03/21 13:24 She told me that she is not feeling good today. She could not verbalize exactly what she is feeling. She did say that she is nauseous but denied have any episode of vomiting. She wa
[2021-03-03] MEDS: IPRATROPIUM BR 0.02% INH SOLN 0.5 MG/2.5 ML VIAL INHALATION ×2 (13:54→18:30)
[2021-03-03] MEDS: ALBUTEROL SULFATE NEB 2.5 MG/0.5 ML INH INHALATION ×2 (13:54→18:30)
[2021-03-03] MEDS: FUROSEMIDE INJ 40 MG/4 ML VIAL IV PUSH (16:46)
[2021-03-03] MEDS: RIVAROXABAN 20 MG TABLET PO (16:47)
[2021-03-03] MEDS: traZODone HCL 50 MG TABLET 200 MG PO (20:26)
[2021-03-03] MEDS: DULoxetine HCL 30 MG CAPSULE.DR PO (20:27)
[2021-03-03] MEDS: PRAMIPEXOLE 0.25 MG TABLET PO (20:27)
[2021-03-03] MEDS: PRAMIPEXOLE 1 MG TABLET PO (20:28)
[2021-03-03] MEDS: MIRTAZAPINE SOLTAB 15 MG TAB.DISPER PO (20:28)
[2021-03-03] MEDS: WATER, STERILE FOR INJECTION 10 ML VIAL XX (20:57)
[2021-03-04] VITALS (16 sets, daily range): BP systolic 124–127; BP diastolic 73–99; PULSE 70–94; RESP 13–24; TEMP 36.3–36.8; O2SAT 85–95
[2021-03-04] MEDS: ALBUTEROL SULFATE NEB 2.5 MG/0.5 ML INH INHALATION ×4 (02:26→19:58)
[2021-03-04] MEDS: IPRATROPIUM BR 0.02% INH SOLN 0.5 MG/2.5 ML VIAL INHALATION ×4 (02:26→19:58)
[2021-03-04] MEDS: LEVOTHYROXINE SODIUM 150 MCG TABLET PO (05:44)
[2021-03-04 06:34] LABS: Basophils Percent Auto 0.1 % (0.2-1.2); Eosinophils Absolute Auto 0.1 K/mm3 (0-0.3); Eosinophils Percent Auto 1.5 % (0-4.4); Hematocrit 41.4 % (37.0-47.0); Hemoglobin 13.5 g/dL (12.0-15.0); Immature Granulocyte Absolute 0.05 K/mm3 (0.00-0.031); Immature Granulocyte Percent A 0.6 % (0-0.5); Lymphocytes Absolute Auto 0.66 K/mm3 (0.9-3.2); Lymphocytes Percent Auto 7.8 % (18.3-44.2); Mean Corpuscular HGB Conc 32.6 g/dl (32-36); Mean Corpuscular Hemoglobin 33.5 pg (26-34); Mean Corpuscular Volume 102.7 fl (80-100); Mean Platelet Volume 10.4 fl (7.4-10.4); Monocytes Absolute Auto 0.8 K/mm3 (0.1-0.6); Monocytes Percent Auto 8.9 % (2.6-8.5); Neutrophils Absolute Auto 6.8 K/mm3 (1.3-6.7); Neutrophils Percent Auto 81.1 % (45.5-73.1); Platelet Count Result 147 k/mm3 (150-375); Red Blood Count 4.03 M/mm3 (4.2-5.4); Red Cell Distribution Width 15.1 % (11.5-14.5); White Blood Count 8.4 K/mm3 (4.5-10.0)
--- NOTE | 2021-03-04 09:07 | PM.PNCARD ---
Progress Note: A&P Assessment and Plan (1) Chronic diastolic congestive heart failure: Code(s): I50.32 - Chronic diastolic (congestive) heart failure Status: Acute Assessment and Plan: On oral diuretic at this point. KCL 20 mEq p.o. x1. Continue metoprolol, diltiazem effusion and other regimen. Will DC telemetry monitoring (2) Paroxysmal atrial fibrillation: Code(s): I48.0 - Paroxysmal atrial fibrillation Status: Chronic Assessment and Plan: Essentially chronic at this point. Heart rate is controlled (3) Current use of [facility] anticoagulation: Code(s): Z79.01 - group home (current) use of anticoagulants Status: Chronic Assessment and Plan: Continue Xarelto (4) Essential hypertension: Code(s): I10 - Essential (primary) hypertension Status: Chronic Assessment and Plan: Reasonably controlled Subjective Date/time seen: 03/04/21 09:07 Interval history: Follow-up visit in this 80-year-old lady with: Chronic atrial fibrillation being managed with rate control and anticoagulation. She entered the hospital after falling at home this morning with generalized weakness. She is also morbidly obese with a BMI of 51. Consulted to see her a couple of days ago because of concerns regarding heart rate control and volume overload. Apparently she has the diagnosis of diastolic dysfunction as well. Date of service 03/04/2021: She complains of shortness of breath. No chest pain. And chronic lower extremity edema Review of Systems Constitutional: Constitutional: Denies chills, Denies fever(s), Reports lethargy, Reports malaise, Denies poor appetite and Reports snoring Eyes: Eyes: Denies eye discharge, Denies loss of vision, Denies eye pain and Denies photophobia ENT: Denies dizziness, Denies epistaxis, Denies nasal congestion and Denies sore throat Cardiovascular: Cardiovascular: Denies chest pain, Denies syncope, Denies pedal edema, Denies leg edema, Denies palpitations, Reports dyspnea, Reports dyspnea on exertion and Denies orthopnea Respiratory: Respiratory: Reports cough, Reports dyspnea, Reports dyspnea on exertion, Reports snoring and Denies wheezing Gastrointestinal: Gastrointestinal: Denies abdominal pain, Denies diarrhea, Denies nausea and Denies vomiting Genitourinary: Genitourinary: Denies hematuria, Denies genital lesions and Denies dysuria Musculoskeletal: Musculoskeletal: Denies arthralgias, Denies joint swelling and Denies numbness Integumentary/Breasts: Skin/Breast: Denies pruritus and Denies rash Neurologic: Denies dizziness, Denies syncope, Denies loss of vision and Denies numbness Psychiatric: Psychiatric: Denies anxiety and Denies depression Endocrine: Endocrine: Denies cold intolerance, Denies heat intolerance and Denies palpitations Hematologic/Lymphatic: Hematologic/Lymphatic: Denies easy bleeding and Denies easy bruising Allergic/Immunologic: Allergic/Immunologic: Denies urticaria and Denies wheezing Exam Const: General: cooperative, comfortable, no acute distress, alert and awake Nutritional Appearance: obese Orientation/consciousness: patient oriented x3 Other: Elderly obese lady supine in bed no distress HENMT: Head: normal to inspection, normocephalic and atraumatic Ears: hearing grossly normal bilaterally General nose exam: Normal external nose present, Normal nares present and no nasal discharge noted Face and sinus: normal facial exam and no erythema Mouth: Yes moist mucous membranes, No drooling and No restricted motion Throat: uvula midline Eyes: General: appearance normal, both eyes and all related structures Alignment and Position: position normal Conjunctivae: conjunctivae normal Sclera: sclerae normal Neck: Neck: normal visual inspection, supple and no JVD Thyroid: thyroid normal Carotids: no bruits Lymphatic: lymphedema not noted Other: Difficult to assess for JVD given her body habitus Chest: Chest
--- NOTE | 2021-03-04 09:32 | P.PNIM_ITS ---
Progress Note: A&P Assessment and Plan (1) Acute and chronic respiratory failure with hypoxia: Code(s): J96.21 - Acute and chronic respiratory failure with hypoxia Status: Acute Assessment and Plan: Currently back to her baseline On supplemental 2 L by nasal cannula (2) Acute on chronic diastolic CHF (congestive heart failure): Code(s): I50.33 - Acute on chronic diastolic (congestive) heart failure Status: Acute Assessment and Plan: Improved Has been significantly diuresed (3) Paroxysmal atrial fibrillation: Code(s): I48.0 - Paroxysmal atrial fibrillation Status: Chronic Assessment and Plan: Rate controlled Anticoagulated (4) COPD (chronic obstructive pulmonary disease): Code(s): J44.9 - Chronic obstructive pulmonary disease, unspecified Status: Acute Assessment and Plan: Continue home meds (5) Obstructive sleep apnea on CPAP: Code(s): G47.33 - Obstructive sleep apnea (adult) (pediatric); Z99.89 - Dependence on other enabling machines and devices Status: Chronic Assessment and Plan: CPAP at nighttime (6) Wound, open, abdominal wall, anterior: Code(s): S31.109A - Unspecified open wound of abdominal wall, unspecified quadrant witho ut penetration into peritoneal cavity, initial encounter Status: Acute Assessment and Plan: Local care (7) UTI (urinary tract infection): Qualifiers: Hematuria presence: without hematuria Urinary tract infection type: site unspecified Qualified Code(s): N39.0 - Urinary tract infection, site not specified Code(s): N39.0 - Urinary tract infection, site not specified Status: Acute Assessment and Plan: On Rocephin (8) Weakness: Code(s): R53.1 - Weakness Status: Acute Assessment and Plan: Likely secondary to chronic disease and deconditioning. 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 She will be continued on diltia zem with a dose of to 40 mg once a day. Metoprolol has been aided with 25 mg twice a day dosing. Continue Xarelto. Lasix dose has been increased to 40 mg IV twice a day. Continue to monitor renal parameters and electrolytes. Strict intake output record and daily weight. Her bicarb is elevated. I will add acetazolamide 500 mg IV twice a day for 4 doses. Continue to monitor her BMP. She does not have any significant respiratory symptoms other than shortness of breath which can be explained based on her acute on chronic diastolic congestive heart failure exacerbation. She does not seem to have acute infective process involving lungs. I will stop azithromycin. Continue ceftriaxone for urinary tract infection with Proteus mirabilis. It is sensitive to ceftriaxone. PT OT had been consulted for discharge recommendation. Continue oxygen with 2 L which is her baseline. She was encouraged to continue using CPAP at nighttime. Continue Lipitor. Continue Diovan. 03/03/21: Her Lasix has been switched to p.o. but I will give additional 2 doses of IV Lasix is I still feel that she is not euvolemic. She will resum
[2021-03-04] MEDS: acetaZOLAMIDE SODIUM FOR INJ 500 MG VIAL IV PUSH (09:34)
[2021-03-04] MEDS: CHOLECALCIFEROL 1,000 UNITS TABLET 2000 UNITS PO (09:34)
[2021-03-04] MEDS: METOPROLOL TARTRATE 25 MG TABLET PO ×2 (09:34→20:42)
[2021-03-04] MEDS: buPROPion HCL SR (12 HR) 150 MG TAB PO ×2 (09:34→20:43)
[2021-03-04] MEDS: FAMOTIDINE 20 MG TABLET 40 MG PO (09:35)
[2021-03-04] MEDS: FUROSEMIDE INJ 40 MG/4 ML VIAL IV PUSH (09:35)
[2021-03-04] MEDS: TOLNAFTATE 1% POWDER 45 GM BTL 1 APPLIC TOPICAL ×2 (09:35→20:44)
[2021-03-04] MEDS: VALSARTAN 160 MG TABLET 320 MG PO (09:35)
[2021-03-04] MEDS: MIRABEGRON 25 MG ER TABLET PO (09:35)
[2021-03-04] MEDS: PANTOPRAZOLE 40 MG TABLET PO (09:36)
[2021-03-04] MEDS: OPTI-GEN TAB 1 TABLET PO ×2 (09:36→18:07)
[2021-03-04] MEDS: METHOTREXATE 2.5 MG TAB (*CHEMO) PO (09:36)
[2021-03-04] MEDS: GABAPENTIN 100 MG CAPSULE PO ×2 (09:38→20:42)
[2021-03-04] MEDS: EUCERIN CREAM 120 GM JAR 1 APPLIC TOPICAL ×2 (09:38→20:44)
[2021-03-04] MEDS: ATORVASTATIN 40 MG TABLET PO (09:38)
[2021-03-04] MEDS: FERROUS GLUCONATE 324 MG TABLET PO (09:38)
[2021-03-04] MEDS: MUPIROCIN 2% OINT 22 GM TUBE 1 APPLIC TOPICAL (09:39)
[2021-03-04 10:01] LABS: Anion Gap 7 mmol/L (8-16); Blood Urea Nitrogen 13 mg/dL (7-17); Calcium 9.1 mg/dL (8.4-10.2); Carbon Dioxide 31 mmol/L (22-30); Chloride 97 mmol/L (98-107); Estimated CRCL calculation 48 ml/min; Estimated Glomerular Filt Rate 54; Glucose 101 mg/dL (65-110); Potassium 3.4 mmol/L (3.4-5.0); Sodium 135 mmol/L (137-145)
[2021-03-04] MEDS: POTASSIUM CHLORIDE 20 MEQ TABLET PO (12:15)
[2021-03-04] MEDS: RIVAROXABAN 20 MG TABLET PO (18:07)
[2021-03-04] MEDS: PRAMIPEXOLE 0.25 MG TABLET PO (20:42)
[2021-03-04] MEDS: traZODone HCL 50 MG TABLET 200 MG PO (20:42)
[2021-03-04] MEDS: PRAMIPEXOLE 1 MG TABLET PO (20:42)
[2021-03-04] MEDS: DULoxetine HCL 30 MG CAPSULE.DR PO (20:42)
[2021-03-04] MEDS: MIRTAZAPINE SOLTAB 15 MG TAB.DISPER PO (20:42)
[2021-03-05] VITALS (16 sets, daily range): BP systolic 102–132; BP diastolic 66–96; PULSE 71–95; RESP 16–20; TEMP 36.1–36.7; O2SAT 87–97
[2021-03-05] MEDS: IPRATROPIUM BR 0.02% INH SOLN 0.5 MG/2.5 ML VIAL INHALATION ×3 (02:50→20:17)
[2021-03-05] MEDS: ALBUTEROL SULFATE NEB 2.5 MG/0.5 ML INH INHALATION ×3 (02:50→20:17)
--- NOTE | 2021-03-05 04:52 | PC.NURSE ---
At 04:30 patient was found with right leg wedged into the bed railing. a small skin tear and a mepilex dressing was applied. The bed alarm was on.
[2021-03-05] MEDS: LEVOTHYROXINE SODIUM 150 MCG TABLET PO (06:42)
--- NOTE | 2021-03-05 07:48 | PM.DS ---
DS: Summary Time Spent with Patient Time attestation: Total time spent providing and/or coordinating discharge services: DS: Data Data Completed and Pending Labs on day of discharge: Labs from last 24 hours 03/04/21 03/04/21 08:55 08:55 Sodium 135 L Potassium 3.4 Chloride 97 L Carbon Dioxide 31 H Anion Gap 7 L BUN 13 Creatinine 1.00 Estim Creat Clear Calc 48 Estimated GFR 54 L Glucose 101 Calcium 9.1 Magnesium 2.0 Preliminary micro results at discharge 02/28/21 06:02 Blood Culture - Preliminary Blood 02/28/21 06:02 Blood Culture - Preliminary Blood Discharge Plan Discharge Consulting providers: ; Salina Alvarado Discharge Instructions: Care Coordination: Patient to have [facility] for PT/OT eval and treat, and residential. They can be reached at [phone] and will contact you to schedule their first visit. Patient Instructions: Heart Failure (GEN), A-fib (Atrial Fibrillation) (GEN), Urinary Tract Infection in Women (GEN), Safe Use of Anticoagulants (GEN) Discharge Medications: No Action pramipexole 1 mg tablet 1 mg PO HS RF: 0 famotidine 40 mg tablet 40 mg PO DAILY RF: 0 methotrexate sodium 2.5 mg tablet 2.5 mg PO DAILY RF: 0 pramipexole 0.25 mg tablet 0.25 mg PO HS RF: 0 doxycycline hyclate 100 mg tablet 100 mg PO BID RF: 0 Myrbetriq 25 mg tablet extended release 24 hr 25 mg PO DAILY RF: 0 trospium 20 mg Tablet 20 mg PO DAILY RF: 0 cholecalciferol (vitamin D3) 50 mcg (2,000 unit) Capsule 50 mcg PO DAILY RF: 0 calcium carbonate-vitamin D3 600 mg(1,500mg) -500 unit Capsule 1 cap PO DAILY RF: 0 furosemide 80 mg Tablet 80 mg PO EVERY OTHER DAY Qty: 30 RF: 0 diltiazem HCl 240 mg capsule,extended release 24 hr 240 mg PO DAILY RF: 0 atorvastatin 40 mg Tablet 40 mg PO DAILY RF: 0 biotin 10,000 mcg Tablet,Disintegrating 10,000 mcg PO DAILY RF: 0 bupropion HCl 150 mg Tablet Sustained-Release 12 Hr 150 mg PO BID RF: 0 clonazepam 1 mg Tablet 1 mg PO DAILY PRN (Reason: Anxiety) RF: 0 duloxetine 30 mg Capsule, Delayed Rel Sprinkle 30 mg PO HS RF: 0 esomeprazole magnesium 40 mg Capsule,Delayed Release(Dr/Ec) 40 mg PO DAILY RF: 0 gabapentin 100 mg Capsule 100 mg PO BID RF: 0 ferrous gluconate 236 mg (27 mg iron) Tablet 236 mg PO DAILY RF: 0 oxycodone-acetaminophen 5-325 mg Tablet 1 tablet PO Q6H PRN (Reason: Pain, Moderate) RF: 0 mirtazapine 15 mg Tablet,Disintegrating 15 mg PO HS RF: 0 potassium chloride 20 mEq Tablet Extended Release 40 meq PO DAILY RF: 0 trazodone 100 mg Tablet 200 mg PO HS RF: 0 valsartan 320 mg Tablet 320 mg PO DAILY RF: 0 Xarelto 20 mg Tablet 20 mg PO DAILY RF: 0 PreserVision AREDS-2 [id number] Capsule 1 tablet PO BID RF: 0 levothyroxine 175 mcg Tablet 150 mcg PO DAILY RF: 0 Date of admission: 03/02/21 11:24 Primary Care Provider: Desmond Tolbert Admitting Provider: Patrick Evans V. Attending physician on admission: Patrick Evans V. Condition: Stable
--- NOTE | 2021-03-05 08:49 | PM.PNCARD ---
Progress Note: A&P Assessment and Plan (1) Chronic diastolic congestive heart failure: Code(s): I50.32 - Chronic diastolic (congestive) heart failure Status: Acute Assessment and Plan: On oral diuretic at this point. Continue metoprolol, diltiazem and other regimen. Okay for discharge from my perspective (2) Paroxysmal atrial fibrillation: Code(s): I48.0 - Paroxysmal atrial fibrillation Status: Chronic Assessment and Plan: Essentially chronic at this point. Heart rate is controlled (3) Current use of penitentiary anticoagulation: Code(s): Z79.01 - half-way (current) use of anticoagulants Status: Chronic Assessment and Plan: Continue Xarelto (4) Essential hypertension: Code(s): I10 - Essential (primary) hypertension Status: Chronic Assessment and Plan: Reasonably controlled Subjective Date/time seen: 03/05/21 08:49 Interval history: Follow-up visit in this 80-year-old lady with: Chronic atrial fibrillation being managed with rate control and anticoagulation. She entered the hospital after falling at home this morning with generalized weakness. She is also morbidly obese with a BMI of 51. Consulted to see her a couple of days ago because of concerns regarding heart rate control and volume overload. Apparently she has the diagnosis of diastolic dysfunction as well. Date of service 03/04/2021: She complains of shortness of breath. No chest pain. And chronic lower extremity edema Date of service 03/05/2021: No shortness of breath or chest pain today. Resting comfortably Review of Systems Constitutional: Constitutional: Denies chills, Denies fever(s), Reports lethargy, Reports malaise, Denies poor appetite and Reports snoring Eyes: Eyes: Denies eye discharge, Denies loss of vision, Denies eye pain and Denies photophobia ENT: Denies dizziness, Denies epistaxis, Denies nasal congestion and Denies sore throat Cardiovascular: Cardiovascular: Denies chest pain, Denies syncope, Denies pedal edema, Denies leg edema, Denies palpitations, Reports dyspnea, Reports dyspnea on exertion and Denies orthopnea Respiratory: Respiratory: Reports cough, Reports dyspnea, Reports dyspnea on exertion, Reports snoring and Denies wheezing Gastrointestinal: Gastrointestinal: Denies abdominal pain, Denies diarrhea, Denies nausea and Denies vomiting Genitourinary: Genitourinary: Denies hematuria, Denies genital lesions and Denies dysuria Musculoskeletal: Musculoskeletal: Denies arthralgias, Denies joint swelling and Denies numbness Integumentary/Breasts: Skin/Breast: Denies pruritus and Denies rash Neurologic: Denies dizziness, Denies syncope, Denies loss of vision and Denies numbness Psychiatric: Psychiatric: Denies anxiety and Denies depression Endocrine: Endocrine: Denies cold intolerance, Denies heat intolerance and Denies palpitations Hematologic/Lymphatic: Hematologic/Lymphatic: Denies easy bleeding and Denies easy bruising Allergic/Immunologic: Allergic/Immunologic: Denies urticaria and Denies wheezing Exam Const: General: cooperative, comfortable, no acute distress, alert and awake Nutritional Appearance: obese Orientation/consciousness: patient oriented x3 Other: Elderly obese lady supine in bed no distress HENMT: Head: normal to inspection, normocephalic and atraumatic Ears: hearing grossly normal bilaterally General nose exam: Normal external nose present, Normal nares present and no nasal discharge noted Face and sinus: normal facial exam and no erythema Mouth: Yes moist mucous membranes, No drooling and No restricted motion Eyes: General: appearance normal, both eyes and all related structures Alignment and Position: position normal Conjunctivae: conjunctivae normal Sclera: sclerae normal Direct Ophthalmoscopy: No photophobia Neck: Neck: normal visual inspection, supple and no JVD Thyroid: thyroid normal Carotids: no bruits Lymphatic:
[2021-03-05] MEDS: CHOLECALCIFEROL 1,000 UNITS TABLET 2000 UNITS PO (09:10)
[2021-03-05] MEDS: VALSARTAN 160 MG TABLET 320 MG PO (09:10)
[2021-03-05] MEDS: ATORVASTATIN 40 MG TABLET PO (09:10)
[2021-03-05] MEDS: OPTI-GEN TAB 1 TABLET PO ×2 (09:10→17:23)
[2021-03-05] MEDS: GABAPENTIN 100 MG CAPSULE PO ×2 (09:10→17:23)
[2021-03-05] MEDS: FERROUS GLUCONATE 324 MG TABLET PO (09:10)
[2021-03-05] MEDS: buPROPion HCL SR (12 HR) 150 MG TAB PO ×2 (09:10→20:07)
[2021-03-05] MEDS: FAMOTIDINE 20 MG TABLET 40 MG PO (09:11)
[2021-03-05] MEDS: METOPROLOL TARTRATE 25 MG TABLET PO ×2 (09:11→20:07)
[2021-03-05] MEDS: PANTOPRAZOLE 40 MG TABLET PO (09:12)
[2021-03-05] MEDS: EUCERIN CREAM 120 GM JAR 1 APPLIC TOPICAL ×2 (09:12→20:06)
[2021-03-05] MEDS: MIRABEGRON 25 MG ER TABLET PO (09:12)
[2021-03-05] MEDS: METHOTREXATE 2.5 MG TAB (*CHEMO) PO (09:12)
[2021-03-05] MEDS: TOLNAFTATE 1% POWDER 45 GM BTL 1 APPLIC TOPICAL ×2 (09:13→20:06)
[2021-03-05] MEDS: MUPIROCIN 2% OINT 22 GM TUBE 1 APPLIC TOPICAL (09:13)
--- NOTE | 2021-03-05 11:25 | PM.IMPN ---
Progress Note: A&P Assessment and Plan (1) Acute and chronic respiratory failure with hypoxia: Code(s): J96.21 - Acute and chronic respiratory failure with hypoxia Status: Acute Assessment and Plan: Currently back to her baseline On supplemental 2 L by nasal cannula (2) Acute on chronic diastolic CHF (congestive heart failure): Code(s): I50.33 - Acute on chronic diastolic (congestive) heart failure Status: Acute Assessment and Plan: Improved Has been significantly diuresed (3) Paroxysmal atrial fibrillation: Code(s): I48.0 - Paroxysmal atrial fibrillation Status: Chronic Assessment and Plan: Rate controlled Anticoagulated (4) COPD (chronic obstructive pulmonary disease): Code(s): J44.9 - Chronic obstructive pulmonary disease, unspecified Status: Acute Assessment and Plan: Continue home meds (5) Obstructive sleep apnea on CPAP: Code(s): G47.33 - Obstructive sleep apnea (adult) (pediatric); Z99.89 - Dependence on other enabling machines and devices Status: Chronic Assessment and Plan: CPAP at nighttime (6) Wound, open, abdominal wall, anterior: Code(s): S31.109A - Unspecified open wound of abdominal wall, unspecified quadrant without penetration into peritoneal cavity, initial encounter Status: Acute Assessment and Plan: Local care (7) UTI (urinary tract infection): Qualifiers: Hematuria presence: without hematuria Urinary tract infection type: site unspecified Qualified Code(s): N39.0 - Urinary tract infection, site not specified Code(s): N39.0 - Urinary tract infection, site not specified Status: Acute Assessment and Plan: On Rocephin (8) Weakness: Code(s): R53.1 - Weakness Status: Acute Assessment and Plan: Likely secondary to chronic disease and deconditioning. 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 She will be continued on diltiazem with a dose of to 40 mg once a day. Metoprolol has been aided with 25 mg twice a day dosing. Continue Xarelto. Lasix dose has been increased to 40 mg IV twice a day. Continue to monitor renal parameters and electrolytes. Strict intake output record and daily weight. Her bicarb is elevated. I will add acetazolamide 500 mg IV twice a day for 4 doses. Continue to monitor her BMP. She does not have any significant respiratory symptoms other than shortness of breath which can be explained based on her acute on chronic diastolic congestive heart failure exacerbation. She does not seem to have acute infective process involving lungs. I will stop azithromycin. Continue ceftriaxone for urinary tract infection with Proteus mirabilis. It is sensitive to ceftriaxone. PT OT had been consulted for discharge recommendation. Continue oxygen with 2 L which is her baseline. She was encouraged to continue using CPAP at nighttime. Continue Lipitor. Continue Diovan. 03/03/21: Her Lasix has been switched to p.o. but I will give additional 2 doses of IV Lasix is I still feel that she is not euvolemic. She will resume her p.o. Lasix in the a.m. Strict intake output record and daily weight. Continue to monitor renal parameters and electrolytes. Continue acetazolamide for 2 more doses today. Repeat BMP in the a.m.. PT OT follow-up. DuoNebs will be continued. She is not having any active wheezing. Steroids not indicated from pulmonary perspective. Antibiotics have been stopped
--- NOTE | 2021-03-05 15:38 | PCPTNOTE ---
Attempted to see patient for PT session at 1445. Patient out of room for CT secondary to fall. Will check back tomorrow.
[2021-03-05] MEDS: RIVAROXABAN 20 MG TABLET PO (17:23)
[2021-03-05] MEDS: traZODone HCL 50 MG TABLET 200 MG PO (20:07)
[2021-03-05] MEDS: DULoxetine HCL 30 MG CAPSULE.DR PO (20:07)
[2021-03-05] MEDS: PRAMIPEXOLE 0.25 MG TABLET PO (20:07)
[2021-03-05] MEDS: MIRTAZAPINE SOLTAB 15 MG TAB.DISPER PO (20:07)
[2021-03-05] MEDS: PRAMIPEXOLE 1 MG TABLET PO (20:07)
[2021-03-06] VITALS (15 sets, daily range): BP systolic 121–148; BP diastolic 48–88; PULSE 68–81; RESP 14–21; TEMP 35.8–36.4; O2SAT 92–97
[2021-03-06] MEDS: ALBUTEROL SULFATE NEB 2.5 MG/0.5 ML INH INHALATION ×4 (01:53→20:23)
[2021-03-06] MEDS: IPRATROPIUM BR 0.02% INH SOLN 0.5 MG/2.5 ML VIAL INHALATION ×4 (01:53→20:23)
[2021-03-06] MEDS: LEVOTHYROXINE SODIUM 150 MCG TABLET PO (06:25)
[2021-03-06] MEDS: CHOLECALCIFEROL 1,000 UNITS TABLET 2000 UNITS PO (10:36)
[2021-03-06] MEDS: GABAPENTIN 100 MG CAPSULE PO ×2 (10:36→16:55)
[2021-03-06] MEDS: VALSARTAN 160 MG TABLET 320 MG PO (10:36)
[2021-03-06] MEDS: METOPROLOL TARTRATE 25 MG TABLET PO ×2 (10:36→20:06)
[2021-03-06] MEDS: ATORVASTATIN 40 MG TABLET PO (10:37)
[2021-03-06] MEDS: PANTOPRAZOLE 40 MG TABLET PO (10:37)
[2021-03-06] MEDS: OPTI-GEN TAB 1 TABLET PO ×2 (10:37→16:55)
[2021-03-06] MEDS: MIRABEGRON 25 MG ER TABLET PO (10:37)
[2021-03-06] MEDS: METHOTREXATE 2.5 MG TAB (*CHEMO) PO (10:37)
[2021-03-06] MEDS: buPROPion HCL SR (12 HR) 150 MG TAB PO ×2 (10:37→20:06)
[2021-03-06] MEDS: FERROUS GLUCONATE 324 MG TABLET PO (10:37)
[2021-03-06] MEDS: FAMOTIDINE 20 MG TABLET 40 MG PO (10:38)
[2021-03-06] MEDS: MUPIROCIN 2% OINT 22 GM TUBE 1 APPLIC TOPICAL (10:39)
[2021-03-06] MEDS: TOLNAFTATE 1% POWDER 45 GM BTL 1 APPLIC TOPICAL ×2 (10:39→20:08)
[2021-03-06] MEDS: EUCERIN CREAM 120 GM JAR 1 APPLIC TOPICAL ×2 (10:39→20:07)
--- NOTE | 2021-03-06 12:26 | PM.PNCARD ---
Progress Note: A&P Additional Plan 80-year-old woman with: Chronic atrial fibrillation being managed with rate control and anticoagulation. With respect to this she is stable. No need to adjust her cardiac regimen. 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 No argument with plans for discharge at any time per the primary team. As such I am going to sign off of her inpatient follow-up at this time. Please contact me if cardiac issues or questions arise. Mega Sharp MD [facility] Subjective Date/time seen: 03/06/21 12:26 Interval history: Follow-up visit in this 80-year-old lady with: Chronic atrial fibrillation being managed with rate control and anticoagulation. She entered the hospital after falling at home this morning with generalized weakness. She is also morbidly obese with a BMI of 51. Consulted to see her a couple of days ago because of concerns regarding heart rate control and volume overload. Apparently she has the diagnosis of diastolic dysfunction as well. Date of service 03/04/2021: She complains of shortness of breath. No chest pain. And chronic lower extremity edema Date of service 03/05/2021: No shortness of breath or chest pain today. Resting comfortably Date of service 03/06/2021: Patient has no cardiovascular symptoms or concerns. Telemetry monitoring of her chronic AFib has been stopped. She believes plans are to discharge tomorrow Exam Const: General: cooperative, comfortable, no acute distress, alert and awake Nutritional Appearance: obese Orientation/consciousness: patient oriented x3 Other: Elderly obese lady supine in bed no distress HENMT: Head: normal to inspection, normocephalic and atraumatic Ears: hearing grossly normal bilaterally General nose exam: Normal external nose present, Normal nares present and no nasal discharge noted Face and sinus: normal facial exam and no erythema Mouth: Yes moist mucous membranes, No drooling and No restricted motion Throat: uvula midline Eyes: General: appearance normal, both eyes and all related structures Alignment and Position: position normal Conjunctivae: conjunctivae normal Sclera: sclerae normal Pupils: Equal, round and reactive pupils present Direct Ophthalmoscopy: No photophobia Neck: Neck: normal visual inspection, supple and no JVD Thyroid: thyroid normal Carotids: no bruits Lymphatic: lymphedema not noted Other: Difficult to assess for JVD given her body habitus Chest: Chest palpation & inspection: normal inspection of the chest and no tenderness Resp: Effort & Inspection: normal respiratory effort and no nasal flaring Auscultation: no crackles, no rales and no wheezes Other: Breath sounds are essentially clear to the best of my ability to examine anteriorly. Cardio: Jugular venous distension: no JVD Rate: abnormal rate Rhythm: abnormal rhythm and abnormal rhythm irregularly irregular Heart sounds: S1 normal heart sound present, S2 normal heart sound present, no gallops, no murmurs and no rubs GI: Inspection: non-distended Auscultation: normal bowel sounds Rectal Exam: deferred : General: No no CVA tenderness Back/Spine/Pelvis: Back: No no CVA tenderness Cervical Spine: cervical ROM normal Skin: General skin exam: normal color, rashes and/or lesions noted and other ( chronic skin changes lower extremities consistent with venous insufficienc) Neuro: General: patient oriented x3 Cranial nerves: No CN's II-XII intact bilaterally and Yes Equal, round and reactive pupils present Cognition (Neuro): normal cognition Speech: normal speech Motor exam (neuro): no tremors Extrem: General: normal to inspection and pedal edema present Other: No significant peripheral edema at all Psych: Appearance: grossly normal and well kempt Speech and movement: Normal speech and movement present Affe
--- NOTE | 2021-03-06 12:57 | P.PNIM_ITS ---
Progress Note: A&P Assessment and Plan (1) Acute and chronic respiratory failure with hypoxia: Code(s): J96.21 - Acute and chronic respiratory failure with hypoxia Status: Acute Assessment and Plan: Currently back to her baseline On supplemental 2 L by nasal cannula (2) Acute on chronic diastolic CHF (congestive heart failure): Code(s): I50.33 - Acute on chronic diastolic (congestive) heart failure Status: Acute Assessment and Plan: Improved Has been significantly diuresed (3) Paroxysmal atrial fibrillation: Code(s): I48.0 - Paroxysmal atrial fibrillation Status: Chronic Assessment and Plan: Rate controlled Anticoagulated (4) COPD (chronic obstructive pulmonary disease): Code(s): J44.9 - Chronic obstructive pulmonary disease, unspecified Status: Acute Assessment and Plan: Continue home meds (5) Obstructive sleep apnea on CPAP: Code(s): G47.33 - Obstructive sleep apnea (adult) (pediatric); Z99.89 - Dependence on other enabling machines and devices Status: Chronic Assessment and Plan: CPAP at nighttime (6) Wound, open, abdominal wall, anterior: Code(s): S31.109A - Unspecified open wound of abdominal wall, unspecified quadrant witho ut penetration into peritoneal cavity, initial encounter Status: Acute Assessment and Plan: Local care (7) UTI (urinary tract infection): Qualifiers: Hematuria presence: without hematuria Urinary tract infection type: site unspecified Qualified Code(s): N39.0 - Urinary tract infection, site not specified Code(s): N39.0 - Urinary tract infection, site not specified Status: Acute Assessment and Plan: On Rocephin (8) Weakness: Code(s): R53.1 - Weakness Status: Acute Assessment and Plan: Likely secondary to chronic disease and deconditioning. 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 She will be continued on diltiazem with a dose of to 40 mg once a day. Metoprolol has been aided with 25 mg twice a day dosing. Continue Xarelto. Lasix dose has been increased to 40 mg IV twice a day. Continue to monitor renal parameters and electrolytes. Strict intake output record and daily weight. Her bicarb is elevated. I will add acetazolamide 500 mg IV twice a day for 4 doses. Continue to monitor her BMP. She does not have any significant respiratory symptoms other than shortness of breath which can be explained based on her acute on chronic diastolic congestive heart failure exacerbation. She does not seem to have acute infective process involving lungs. I will stop azithromycin. Continue ceftriaxone for urinary tract infection with Proteus mirabilis. It is sensitive to ceftriaxone. PT OT had been consulted for discharge recommendation. Continue oxygen with 2 L which is her baseline. She was encouraged to continue using CPAP at nighttime. Continue Lipitor. Continue Diovan. 03/03/21: Her Lasix has been switched to p.o. but I will give additional 2 doses of IV Lasix is I still feel that she is not euv
[2021-03-06] MEDS: oxyCODONE/ACETAMINOPHEN (*CRX) 5-325 MG TABLET 1 TABLET PO (16:55)
[2021-03-06] MEDS: RIVAROXABAN 20 MG TABLET PO (16:55)
[2021-03-06] MEDS: PRAMIPEXOLE 1 MG TABLET PO (20:06)
[2021-03-06] MEDS: MIRTAZAPINE SOLTAB 15 MG TAB.DISPER PO (20:06)
[2021-03-06] MEDS: DULoxetine HCL 30 MG CAPSULE.DR PO (20:06)
[2021-03-06] MEDS: PRAMIPEXOLE 0.25 MG TABLET PO (20:06)
[2021-03-06] MEDS: traZODone HCL 50 MG TABLET 200 MG PO (20:06)
[2021-03-07] VITALS (17 sets, daily range): BP systolic 135–147; BP diastolic 70–76; PULSE 60–89; RESP 12–20; TEMP 36.4; O2SAT 94–99
[2021-03-07] MEDS: IPRATROPIUM BR 0.02% INH SOLN 0.5 MG/2.5 ML VIAL INHALATION ×4 (02:28→19:55)
[2021-03-07] MEDS: ALBUTEROL SULFATE NEB 2.5 MG/0.5 ML INH INHALATION ×4 (02:28→19:55)
[2021-03-07] MEDS: LEVOTHYROXINE SODIUM 150 MCG TABLET PO (06:36)
[2021-03-07] MEDS: buPROPion HCL SR (12 HR) 150 MG TAB PO ×2 (09:31→20:59)
[2021-03-07] MEDS: GABAPENTIN 100 MG CAPSULE PO ×2 (09:31→17:56)
[2021-03-07] MEDS: PANTOPRAZOLE 40 MG TABLET PO (09:31)
[2021-03-07] MEDS: VALSARTAN 160 MG TABLET 320 MG PO (09:32)
[2021-03-07] MEDS: OPTI-GEN TAB 1 TABLET PO ×2 (09:32→17:56)
[2021-03-07] MEDS: MIRABEGRON 25 MG ER TABLET PO (09:32)
[2021-03-07] MEDS: FERROUS GLUCONATE 324 MG TABLET PO (09:32)
[2021-03-07] MEDS: FAMOTIDINE 20 MG TABLET 40 MG PO (09:33)
[2021-03-07] MEDS: METOPROLOL TARTRATE 25 MG TABLET PO ×2 (09:33→21:01)
[2021-03-07] MEDS: ATORVASTATIN 40 MG TABLET PO (09:34)
[2021-03-07] MEDS: CHOLECALCIFEROL 1,000 UNITS TABLET 2000 UNITS PO (09:34)
[2021-03-07] MEDS: METHOTREXATE 2.5 MG TAB (*CHEMO) PO (09:34)
[2021-03-07] MEDS: TOLNAFTATE 1% POWDER 45 GM BTL 1 APPLIC TOPICAL ×2 (09:35→21:09)
[2021-03-07] MEDS: EUCERIN CREAM 120 GM JAR 1 APPLIC TOPICAL ×2 (09:35→21:02)
[2021-03-07] MEDS: MUPIROCIN 2% OINT 22 GM TUBE 1 APPLIC TOPICAL (09:35)
--- NOTE | 2021-03-07 09:43 | PM.IMPN ---
Progress Note: A&P Assessment and Plan (1) Acute and chronic respiratory failure with hypoxia: Code(s): J96.21 - Acute and chronic respiratory failure with hypoxia Status: Acute Assessment and Plan: Currently back to her baseline On supplemental 2 L by nasal cannula (2) Acute on chronic diastolic CHF (congestive heart failure): Code(s): I50.33 - Acute on chronic diastolic (congestive) heart failure Status: Acute Assessment and Plan: Improved Has been significantly diuresed (3) Paroxysmal atrial fibrillation: Code(s): I48.0 - Paroxysmal atrial fibrillation Status: Chronic Assessment and Plan: Rate controlled Anticoagulated (4) COPD (chronic obstructive pulmonary disease): Code(s): J44.9 - Chronic obstructive pulmonary disease, unspecified Status: Acute Assessment and Plan: Continue home meds (5) Obstructive sleep apnea on CPAP: Code(s): G47.33 - Obstructive sleep apnea (adult) (pediatric); Z99.89 - Dependence on other enabling machines and devices Status: Chronic Assessment and Plan: CPAP at nighttime (6) Wound, open, abdominal wall, anterior: Code(s): S31.109A - Unspecified open wound of abdominal wall, unspecified quadrant without penetration into peritoneal cavity, initial encounter Status: Acute Assessment and Plan: Local care (7) UTI (urinary tract infection): Qualifiers: Hematuria presence: without hematuria Urinary tract infection type: site unspecified Qualified Code(s): N39.0 - Urinary tract infection, site not specified Code(s): N39.0 - Urinary tract infection, site not specified Status: Acute Assessment and Plan: On Rocephin (8) Weakness: Code(s): R53.1 - Weakness Status: Acute Assessment and Plan: Likely secondary to chronic disease and deconditioning. 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 Additional Plan CHF decompensation has resolved, as pt is euvolemic and now back to baseline 2L O2 req and no longer feels sob. RLE wound however would ideally be cultured prior to discharge, ordered and pendin.. Blood culture from 02/28 negative so far. Ordered wound care consult to have wound packaged up and sterile prior to discharge. Has completed 7 days Rocephin for sensitive proteus UTI. Mentation at baseline, and no urinary symptoms. Time Spent With Patient Time with patient: less than 15 minutes Subjective Date/time seen: 03/07/21 09:43 no acute complaints resting comfortably in bed Review of Systems Review of Systems: All systems reviewed & are unremarkable except as noted in HPI and below Exam Const: General: no acute distress Neck: Neck: no JVD Resp: Effort & Inspection: normal respiratory effort Auscultation: clear to auscultation bilaterally Cardio: Rate: regular rate Rhythm: regular rhythm GI: GI Palp: Yes Soft to palpation and No Tenderness to palpation present (GI) Extrem: Other: RLE wound, bloody, possibly mild purulence Objective Data Vital Signs Vital Signs: Vital Signs - 24 hr 03/06/21 10:36 03/06/21 14:00 03/06/21 14:03 Temperature 96.4 F L Pulse Rate 80 74 76 Respiratory Rate 21 H 18 Blood Pressure 148/88 H Pulse Oximetry 97 97 03/06/21 14:13 03/06/21 20:06 03/06/21 20:45 Temperature Pulse Rate 76 76 81 Respiratory Rate 18 18 Blood Pressure Pulse Oximetry 03/06/21 20:46 03/06/21 20:55 03/06/21 22:00 Temperature 97.5 F L Pulse Rate 78 68 Respiratory Rate 18 20 Blood Pressure 121/48 L Pulse Oximetry 93 93 03/06/21 22:40 03/07/21 02:23 03/07/21 02:26 Temperature Pulse Rate 72 75 80 Re
--- NOTE | 2021-03-07 14:22 | PCOTNOTE ---
Attempted to see patient this pm, however patient back to bed and sleeping soundly at this time. Did not disturb patient for this reason.
[2021-03-07] MEDS: RIVAROXABAN 20 MG TABLET PO (17:56)
[2021-03-07] MEDS: traZODone HCL 50 MG TABLET 200 MG PO (20:59)
[2021-03-07] MEDS: DULoxetine HCL 30 MG CAPSULE.DR PO (21:00)
[2021-03-07] MEDS: PRAMIPEXOLE 0.25 MG TABLET PO (21:07)
[2021-03-07] MEDS: MIRTAZAPINE SOLTAB 15 MG TAB.DISPER PO (21:07)
[2021-03-07] MEDS: PRAMIPEXOLE 1 MG TABLET PO (21:09)
[2021-03-08] VITALS (13 sets, daily range): BP systolic 140–141; BP diastolic 81–83; PULSE 64–88; RESP 14–20; TEMP 36.2–36.4; O2SAT 94–98
[2021-03-08] MEDS: IPRATROPIUM BR 0.02% INH SOLN 0.5 MG/2.5 ML VIAL INHALATION ×3 (02:17→19:48)
[2021-03-08] MEDS: ALBUTEROL SULFATE NEB 2.5 MG/0.5 ML INH INHALATION ×3 (02:17→19:48)
[2021-03-08] MEDS: LEVOTHYROXINE SODIUM 150 MCG TABLET PO (06:14)
[2021-03-08 06:18] LABS: Basophils Percent Auto 0.3 % (0.2-1.2); Eosinophils Absolute Auto 0.1 K/mm3 (0-0.3); Eosinophils Percent Auto 2.2 % (0-4.4); Hematocrit 39.2 % (37.0-47.0); Immature Granulocyte Absolute 0.04 K/mm3 (0.00-0.031); Immature Granulocyte Percent A 0.6 % (0-0.5); Lymphocytes Absolute Auto 0.63 K/mm3 (0.9-3.2); Lymphocytes Percent Auto 9.8 % (18.3-44.2); Mean Corpuscular HGB Conc 33.2 g/dl (32-36); Mean Corpuscular Hemoglobin 33.6 pg (26-34); Mean Corpuscular Volume 101.3 fl (80-100); Mean Platelet Volume 9.1 fl (7.4-10.4); Monocytes Absolute Auto 0.4 K/mm3 (0.1-0.6); Monocytes Percent Auto 6.4 % (2.6-8.5); Neutrophils Absolute Auto 5.2 K/mm3 (1.3-6.7); Neutrophils Percent Auto 80.7 % (45.5-73.1); Platelet Count Result 186 k/mm3 (150-375); Red Blood Count 3.87 M/mm3 (4.2-5.4); Red Cell Distribution Width 14.8 % (11.5-14.5); White Blood Count 6.4 K/mm3 (4.5-10.0)
[2021-03-08 06:41] LABS: Alanine Aminotransferase 53 U/L (4-35); Albumin Level 3.2 g/dL (3.5-5.1); Alkaline Phosphatase 130 U/L (38-126); Anion Gap 10 mmol/L (8-16); Aspartate Amino Transferase 64 U/L (14-36); Bilirubin,Total 0.6 mg/dL (0.2-1.3); Blood Urea Nitrogen 18 mg/dL (7-17); Carbon Dioxide 27 mmol/L (22-30); Chloride 101 mmol/L (98-107); Estimated CRCL calculation 60 ml/min; Estimated Glomerular Filt Rate > 60; Glucose 105 mg/dL (65-110); Magnesium 1.8 mg/dL (1.6-2.3); Potassium 3.3 mmol/L (3.4-5.0); Sodium 138 mmol/L (137-145)
[2021-03-08] MEDS: FAMOTIDINE 20 MG TABLET 40 MG PO (09:32)
[2021-03-08] MEDS: ATORVASTATIN 40 MG TABLET PO (09:32)
[2021-03-08] MEDS: buPROPion HCL SR (12 HR) 150 MG TAB PO ×2 (09:32→20:32)
[2021-03-08] MEDS: MIRABEGRON 25 MG ER TABLET PO (09:32)
[2021-03-08] MEDS: VALSARTAN 160 MG TABLET 320 MG PO (09:32)
[2021-03-08] MEDS: CHOLECALCIFEROL 1,000 UNITS TABLET 2000 UNITS PO (09:32)
[2021-03-08] MEDS: FERROUS GLUCONATE 324 MG TABLET PO (09:32)
[2021-03-08] MEDS: METHOTREXATE 2.5 MG TAB (*CHEMO) PO (09:33)
[2021-03-08] MEDS: GABAPENTIN 100 MG CAPSULE PO ×2 (09:34→16:08)
[2021-03-08] MEDS: METOPROLOL TARTRATE 25 MG TABLET PO ×2 (09:34→20:32)
[2021-03-08] MEDS: OPTI-GEN TAB 1 TABLET PO ×2 (09:34→16:08)
[2021-03-08] MEDS: PANTOPRAZOLE 40 MG TABLET PO (09:34)
[2021-03-08] MEDS: TOLNAFTATE 1% POWDER 45 GM BTL 1 APPLIC TOPICAL ×2 (09:37→20:33)
[2021-03-08] MEDS: EUCERIN CREAM 120 GM JAR 1 APPLIC TOPICAL ×2 (09:38→20:33)
[2021-03-08] MEDS: MUPIROCIN 2% OINT 22 GM TUBE 1 APPLIC TOPICAL (09:38)
[2021-03-08] MEDS: oxyCODONE/ACETAMINOPHEN (*CRX) 5-325 MG TABLET 1 TABLET PO ×2 (09:53→16:40)
[2021-03-08] MEDS: POTASSIUM CHLORIDE 20 MEQ TABLET 40 MEQ PO (11:50)
--- NOTE | 2021-03-08 13:18 | PM.IMPN ---
Progress Note: A&P Assessment and Plan (1) Acute and chronic respiratory failure with hypoxia: Code(s): J96.21 - Acute and chronic respiratory failure with hypoxia Status: Acute Assessment and Plan: Currently back to her baseline On supplemental 2 L by nasal cannula (2) Acute on chronic diastolic CHF (congestive heart failure): Code(s): I50.33 - Acute on chronic diastolic (congestive) heart failure Status: Acute Assessment and Plan: Improved Has been significantly diuresed (3) Paroxysmal atrial fibrillation: Code(s): I48.0 - Paroxysmal atrial fibrillation Status: Chronic Assessment and Plan: Rate controlled Anticoagulated (4) COPD (chronic obstructive pulmonary disease): Code(s): J44.9 - Chronic obstructive pulmonary disease, unspecified Status: Acute Assessment and Plan: Continue home meds (5) Obstructive sleep apnea on CPAP: Code(s): G47.33 - Obstructive sleep apnea (adult) (pediatric); Z99.89 - Dependence on other enabling machines and devices Status: Chronic Assessment and Plan: CPAP at nighttime (6) Wound, open, abdominal wall, anterior: Code(s): S31.109A - Unspecified open wound of abdominal wall, unspecified quadrant without penetration into peritoneal cavity, initial encounter Status: Acute Assessment and Plan: Local care (7) UTI (urinary tract infection): Qualifiers: Hematuria presence: without hematuria Urinary tract infection type: site unspecified Qualified Code(s): N39.0 - Urinary tract infection, site not specified Code(s): N39.0 - Urinary tract infection, site not specified Status: Acute Assessment and Plan: On Rocephin (8) Weakness: Code(s): R53.1 - Weakness Status: Acute Assessment and Plan: Likely secondary to chronic disease and deconditioning. 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 Additional Plan CHF decompensation has resolved, as pt is euvolemic and now back to baseline 2L O2 req and no longer feels sob. RLE wound preliminary no growth yet.. Blood culture from 02/28 negative, final. Ordered wound care consult to have wound packaged up and sterile prior to discharge, noted recommendations on wound packing. Has completed 7 days Rocephin for sensitive proteus UTI. Mentation at baseline, and no urinary symptoms. Discharge later today or tomorrow morning. Time Spent With Patient Time with patient: less than 15 minutes Subjective Date/time seen: 03/08/21 13:18 no acute complaints leg pain improving able to work with physical therapy Review of Systems Review of Systems: All systems reviewed & are unremarkable except as noted in HPI and below Exam Const: General: no acute distress Neck: Neck: no JVD Resp: Effort & Inspection: normal respiratory effort Auscultation: clear to auscultation bilaterally Cardio: Rate: regular rate Rhythm: regular rhythm GI: Inspection: non-distended Objective Data Vital Signs Vital Signs: Vital Signs - 24 hr 03/07/21 14:00 03/07/21 14:08 03/07/21 14:18 Temperature 97.5 F L Pulse Rate 74 84 70 Respiratory Rate 16 20 20 Blood Pressure 147/70 H Pulse Oximetry 99 03/07/21 19:56 03/07/21 20:00 03/07/21 20:03 Temperature Pulse Rate 66 89 69 Respiratory Rate 16 20 16 Blood Pressure Pulse Oximetry 96 95 03/07/21 21:01 03/07/21 21:15 03/07/21 22:00 Temperature 97.6 F Pulse Rate 69 86 89 Respiratory Rate 16 20 Blood Pressure 135/73 Pulse Oximetry 95 95 03/08/21 02:17 03/08/21 02:31 03/08/21 06:00 Temperature 97.2 F L Pulse Rate 65 68 79 Respiratory Rate 15 15 20 Blood Pr
[2021-03-08] MEDS: RIVAROXABAN 20 MG TABLET PO (16:08)
[2021-03-08] MEDS: traZODone HCL 50 MG TABLET 200 MG PO (20:32)
[2021-03-08] MEDS: MIRTAZAPINE SOLTAB 15 MG TAB.DISPER PO (20:32)
[2021-03-08] MEDS: DULoxetine HCL 30 MG CAPSULE.DR PO (20:33)
[2021-03-08] MEDS: PRAMIPEXOLE 1 MG TABLET PO (20:33)
[2021-03-08] MEDS: PRAMIPEXOLE 0.25 MG TABLET PO (20:34)
[2021-03-08] MEDS: diphenhydrAMINE HCl CAP 25 MG CAPSULE PO (20:37)
[2021-03-09] MEDS: IPRATROPIUM BR 0.02% INH SOLN 0.5 MG/2.5 ML VIAL INHALATION ×2 (02:07→08:50)
[2021-03-09] MEDS: ALBUTEROL SULFATE NEB 2.5 MG/0.5 ML INH INHALATION ×2 (02:07→08:50)
[2021-03-09 02:08] VITALS: PULSE 82; RESP 20
[2021-03-09 02:16] VITALS: PULSE 75; RESP 18
[2021-03-09 02:27] VITALS: PULSE 74; RESP 18; O2SAT 93
[2021-03-09] MEDS: LEVOTHYROXINE SODIUM 150 MCG TABLET PO (05:42)
[2021-03-09 06:00] VITALS: BP 149/87; PULSE 98; RESP 18; TEMP 36.5; O2SAT 95
[2021-03-09 08:50] VITALS: PULSE 94; RESP 18
[2021-03-09] MEDS: CHOLECALCIFEROL 1,000 UNITS TABLET 2000 UNITS PO (09:22)
[2021-03-09] MEDS: OPTI-GEN TAB 1 TABLET PO (09:22)
[2021-03-09] MEDS: buPROPion HCL SR (12 HR) 150 MG TAB PO (09:22)
[2021-03-09] MEDS: METOPROLOL TARTRATE 25 MG TABLET PO (09:23)
[2021-03-09] MEDS: FAMOTIDINE 20 MG TABLET 40 MG PO (09:23)
[2021-03-09] MEDS: FERROUS GLUCONATE 324 MG TABLET PO (09:23)
[2021-03-09] MEDS: GABAPENTIN 100 MG CAPSULE PO (09:23)
[2021-03-09] MEDS: MIRABEGRON 25 MG ER TABLET PO (09:23)
[2021-03-09] MEDS: VALSARTAN 160 MG TABLET 320 MG PO (09:23)
[2021-03-09] MEDS: ATORVASTATIN 40 MG TABLET PO (09:24)
[2021-03-09] MEDS: METHOTREXATE 2.5 MG TAB (*CHEMO) PO (09:24)
[2021-03-09] MEDS: PANTOPRAZOLE 40 MG TABLET PO (09:24)
--- NOTE | 2021-03-09 09:29 | PM.DS ---
DS: Admitting Diagnosis Discharge Date 03/09 Admitting Diagnosis Generalized weakness generalized malaise chills DS: Discharge Diagnosis Discharge Diagnosis (1) COPD (chronic obstructive pulmonary disease): Code(s): J44.9 - Chronic obstructive pulmonary disease, unspecified Status: Acute (2) Acute on chronic diastolic CHF (congestive heart failure): Code(s): I50.33 - Acute on chronic diastolic (congestive) heart failure Status: Acute (3) Cellulitis: Qualifiers: Laterality: left Site of cellulitis: extremity Site of cellulitis of extremity: lower extremity Qualified Code(s): L03.116 - Cellulitis of left lower limb Code(s): L03.90 - Cellulitis, unspecified Status: Acute DS: Summary Hospital Course Reason for hospitalization: CHF decompensation Hospital Course: 80-year-old lady with past medical history of COPD and CHF, sleep apnea presenting to [facility] on March 02 with few days of shortness of breath and lethargy. X-ray showing pulmonary vascular congestion, urinary cultures drawn Proteus, wound on right lower extremity, although not appearing infected. She was treated for CHF decompensation with IV diuresis, and antibiotics for UTI secondary to Proteus, and also to cover cellulitis. Cardiology was consulted as she has atrial fibrillation, recommended continuing AFib regimen of diltiazem 40 daily and metoprolol added 25 b.i.d.. Xarelto continued for 20 mg for paroxysmal atrial fibrillation. Cardiology last saw her on March 06, and okay with discharge. Was planning on discharging this time, however patient had continued concerns regarding wound on right lower extremity. We cultured this, did not grow anything, and a pain x-ray which showed no acute bone or joint changes. The time of discharge, her respiratory symptoms are back to baseline, and we will discharge on treatment for chronic CHF and COPD and AFib, continue CPAP at night for CHARLES. Status at Discharge Functional status at discharge: uses cane/walker Overall status at discharge: patient is progressing back to baseline Time Spent with Patient Time attestation: Total time spent providing and/or coordinating discharge services: Time spent: Less than 30 minutes Exam Const: General: no acute distress Neck: Neck: no JVD Resp: Effort & Inspection: normal respiratory effort Auscultation: clear to auscultation bilaterally Cardio: Rate: regular rate Rhythm: regular rhythm GI: GI Palp: Yes Soft to palpation and No Tenderness to palpation present (GI) DS: Data Data Completed and Pending Labs on day of discharge: Preliminary micro results at discharge 03/07/21 18:02 Wound Culture - Preliminary Leg Right Discharge Plan Discharge Attending physician on discharge: Hoa Castrejon Consulting providers: ; Salina Alvarado Discharging Clinician: Hoa Castrejon Patient Disposition: Home, Self-Care Activity: no shower, no driving and as tolerated Diet: heart healthy, low sodium, low cholesterol, low fat and high fiber Discharge Instructions: Care Coordination: Patient to have [facility] for PT/OT eval and treat, and longterm. They can be reached at [phone] and will contact you to schedule their first visit. Patient Instructions: Antibiotic Form, Heart Failure (GEN), A-fib (Atrial Fibrillation) (GEN), Urinary Tract Infection in Women (GEN), Safe Use of Anticoagulants (GEN) Stand Alone Forms: General Discharge Information Follow-up/Referrals: Desmond Tolbert MD [Primary Care Provider] - 2 Weeks Discharge Medications: New furosemide 40 mg Tablet 40 mg PO DAILY Qty: 30 RF: 0 Aloe [place] Antifungal (micon) 2 % Ointment 1 applic topical Q12HR 30 Days RF: 0 tolnaftate 1 % Powder 1 applic topical Q12HR Qty: 30 RF: 0 mupirocin 2 % Ointment 1 applic topical DAILY 10 Days RF: 0 ipratropium bromide 0.02 % Solution 0.5 mg inhalation Q6HRT 30 Da
[2021-03-09] MEDS: MUPIROCIN 2% OINT 22 GM TUBE 1 APPLIC TOPICAL (09:31)
[2021-03-09] MEDS: TOLNAFTATE 1% POWDER 45 GM BTL 1 APPLIC TOPICAL (09:31)
[2021-03-09] MEDS: EUCERIN CREAM 120 GM JAR 1 APPLIC TOPICAL (09:31)
--- NOTE | 2021-03-09 10:06 | PCNWS ---
Weekly nutritional screen. Patient is tolerating current diet with adequate intake. No weight loss reported. No nutritional needs at this time.
== END 2021-03-09 14:26 | disposition home health service (06) | DRG 291 ==
LOC: ANHED 20:58 → ANH3MEDSUR 02-28 00:43
PROVIDERS: Hospitalist; Internal Medicine Critical Care Medicine; Admitting Provider Internal Medicine; Emergency Provider Emergency Medicine; PCP Internal Medicine; Visit Provider Internal Medicine
DX: I50.33 Acute on chronic diastolic (congestive) heart failure (principal); J96.21 Acute and chronic respiratory failure with hypoxia; N39.0 Urinary tract infection, site not specified; Z68.43 Body mass index [BMI] 50.0-59.9, adult; L03.115 Cellulitis of right lower limb; B96.4 Proteus (mirabilis) (morganii) as the cause of diseases classified elsewhere; J44.9 Chronic obstructive pulmonary disease, unspecified; E11.9 Type 2 diabetes mellitus without complications; G47.33 Obstructive sleep apnea (adult) (pediatric); D64.9 Anemia, unspecified; G25.81 Restless legs syndrome; E66.01 Morbid (severe) obesity due to excess calories; I48.0 Paroxysmal atrial fibrillation; S31.109A Unspecified open wound of abdominal wall, unspecified quadrant without penetration into peritoneal cavity, initial encounter; X58.XXXA Exposure to other specified factors, initial encounter; K21.9 Gastro-esophageal reflux disease without esophagitis; H35.30 Unspecified macular degeneration; G89.4 Chronic pain syndrome; F41.9 Anxiety disorder, unspecified; F32.A Depression, unspecified; E78.5 Hyperlipidemia, unspecified; W18.39XA Other fall on same level, initial encounter; Z96.653 Presence of artificial knee joint, bilateral; Z79.01 Long term (current) use of anticoagulants; Z85.850 Personal history of malignant neoplasm of thyroid; Z86.16 Personal history of COVID-19; Z90.49 Acquired absence of other specified parts of digestive tract; Z90.710 Acquired absence of both cervix and uterus
CPT/HCPCS: 36415; 36600; 70450; 71045; 71046; 72070; 72100; 72125; 73590; 80048; 80053; 81001; 82805; 83735; 83880; 84100; 84484; 85025; 87040; 87070; 87077; 87086; 87088; 87186; 87205; 93005; 94640; 96365; 96366; 96367; 96375; 96376; 97110; 97116; 97161; 97166; 97530; 97535; 99285; A9270; G0378; J0456; J0696; J1120; J1940

== ENCOUNTER 2022-12-01 06:48 | Emergency (ER) | payer MEDICARE, SELFPAY ==
[2022-12-01] VITALS (50 sets, daily range): BP systolic 94–123; BP diastolic 63–94; PULSE 81–125; RESP 12–25; TEMP 36.6; O2SAT 92–99
--- NOTE | ~2022-12-01 | CT_ITS ---
EXAMINATION: CT brain wo con DATE: 12/01/2022 07:53 INDICATION: Head injury. TECHNIQUE: Computed tomography (CT) of the head was performed without intravenous contrast. The dose- length product was 1210.67 mGy-cm. COMPARISON: CT dated 03/05/2021 FINDINGS: Generalized atrophy. There are scattered mild periventricular and subcortical white matter changes, most likely related to small vessel ischemic disease (microangiopathy). No acute intracrania l hemorrhage, infarction, mass or mass effect. Study limited by motion artifact. Basilar cisterns are patent. Evaluation of the posterior fossa limited by motion. Paranasal sinuses and mastoids are pneu matized. No depressed skull fractures. IMPRESSION: 1. No acute intracranial abnormality. 2: Chronic age-related findings. Reviewed, dictated and finalized at location A.
--- NOTE | ~2022-12-01 | XR_ITS ---
XR shoulder LT min 2V 12/01/2022 08:17 Indication: Left shoulder pain Procedure: 3 views left shoulder Comparison: No prior studies for comparison. Findings: There is severe left glenohumeral joint osteoarthritis. There are loose bodies adjacent to the joint space. No acute fracture is identified. Osteopenia. No focal soft tissue abnormality. Impression: 1: Severe left glenohumeral joint osteoarthritis with adjacent loose bodies. Reviewed, dictated and finalized at location A. Impression: 1: Severe left glenohumeral joint osteoarthritis with adjacent loose bodies.
--- NOTE | ~2022-12-01 | XR_ITS ---
XR femur LT min 2V, XR knee LT 3V, XR hip LT 2V w AP pelvis 12/01/2022 08:17 Indication: Status post fall. Left leg pain. Procedure: 2 views left femur, 3 views left knee and 3 views left hip Comparison: 08/04/2020 Findings: Osteopenia. Mild osteoarthritis of the hip. There is a displaced spiral fracture of the dis bobo femoral diaphysis which does not appear to involve the left knee arthroplasty. There is lateral d isplacement. There is lateral angulation. Left knee arthroplasty appears to be well seated. Impression: 1: Displaced, angulated extra-articular spiral fracture distal left femoral diaphysis. Reviewed, dictated and finalized at location A. Impression: 1: Displaced, angulated extra-articular spiral fracture distal left femoral brooke physis. Impression: 1: Displaced, angulated extra-articular spiral fracture distal left femoral brooke physis. Impression: 1: Displaced, angulated extra-articular spiral fracture distal left femoral brooke physis.
--- NOTE | 2022-12-01 07:07 | ED.GENADULT ---
HPI - General Adult General Chief complaint: Fall Stated complaint: GLF, L shoulder/leg pain Time Seen by Provider: 12/01/22 06:55 History of Present Illness HPI narrative: 82-year-old female presented the emergency department for evaluation of left shoulder and left hip pain. Patient reports she was walking to the bathroom when she had mechanical fall causing her to land on her left side. Patient initially injured her left hip. While EMS was attempting to extricate her from the floor she injured her left arm/shoulder. Patient is not on blood thinners, Xarelto. Patient denies any loss of consciousness. Patient reports that left shoulder left hip left knee pain. Patient has decreased range of motion of the left arm and left leg due to pain. Related Data Home Medications Medication Instructions Recorded Confirmed atorvastatin 40 mg tablet 40 mg PO DAILY 02/16/20 02/28/21 biotin 10,000 mcg disintegrating 10,000 mcg PO DAILY 02/16/20 02/28/21 tablet bupropion HCl 150 mg tablet,12 hr 150 mg PO BID 02/16/20 02/28/21 sustained-release clonazepam 1 mg tablet 1 mg PO DAILY PRN Anxiety 02/16/20 02/28/21 duloxetine 30 mg capsule,delayed 30 mg PO HS 02/16/20 02/28/21 release sprinkle esomeprazole magnesium 40 mg 40 mg PO DAILY 02/16/20 02/28/21 capsule,delayed release ferrous gluconate 236 mg (27 mg 236 mg PO DAILY 02/16/20 02/28/21 iron) tablet gabapentin 100 mg capsule 100 mg PO BID 02/16/20 02/28/21 mirtazapine 15 mg disintegrating 15 mg PO HS 02/16/20 02/28/21 tablet oxycodone-acetaminophen 5 mg-325 1 tablet PO Q6H PRN Pain, Moderate 02/16/20 02/28/21 mg tablet potassium chloride 20 mEq 40 meq PO DAILY 02/16/20 02/28/21 tablet,extended release rivaroxaban 20 mg tablet (Xarelto) 20 mg PO DAILY 02/16/20 02/28/21 trazodone 100 mg tablet 200 mg PO HS 02/16/20 02/28/21 valsartan 320 mg tablet 320 mg PO DAILY 02/16/20 02/28/21 vit C 250 mg-vit E 90 mg-zinc 40 1 tablet PO BID 02/16/20 02/28/21 mg-copper 1 [id number] capsule (PreserVision AREDS-2) levothyroxine 175 mcg tablet 150 mcg PO DAILY 02/17/20 02/28/21 pramipexole 1 mg tablet 1 mg PO HS 08/04/20 02/28/21 calcium carbonate 600 mg-vitamin 1 cap PO DAILY 10/15/20 02/28/21 D3 12.5 mcg (500 unit) capsule cholecalciferol (vitamin D3) 50 50 mcg PO DAILY 10/15/20 02/28/21 mcg (2,000 unit) capsule famotidine 40 mg tablet 40 mg PO DAILY 10/15/20 02/28/21 methotrexate sodium 2.5 mg tablet 2.5 mg PO DAILY 10/15/20 02/28/21 mirabegron 25 mg tablet,extended 25 mg PO DAILY 10/15/20 02/28/21 release 24 hr (Myrbetriq) pramipexole 0.25 mg tablet 0.25 mg PO HS 10/15/20 02/28/21 trospium 20 mg tablet 20 mg PO DAILY 10/15/20 02/28/21 diltiazem HCl 240 mg capsule,24 240 mg PO DAILY 03/01/21 03/01/21 hr,extended release Allergies Allergy/AdvReac Type Severity Reaction Status Date / Time Methotrexate Analogues Allergy Unknown mouth sores Verified 12/01/22 07:00 Sulfa (Sulfonamide Allergy Unknown unknown Verified 12/01/22 07:00 Antibiotics) Review of Systems Review of Systems: All systems reviewed & are unremarkable except as noted in HPI and below PMFSH Past Medical History Medical History Anemia Anxiety Chronic diastolic congestive heart failure Echocardiogram in October 2018 demonstrated hyperdynamic left ventricular function with an ejection fraction of 71%, moderate left atrial enlargement, and grade 2 diastolic dysfunction. Chronic pain syndrome Chronic wound infection of abdomen On long-term doxycycline b.i.d. Current use of shelter anticoagulation On Xarelto for stroke prophylaxis given paroxysmal atrial fibrillation. Depression Essential hypertension Gastroesophageal reflux disease Hyperlipidemia Hypothyroidism (acquired) Macular degeneration Morbid obesity Obstructive sleep apnea on CPAP Overactive bladder Paroxysmal atrial fibrillation On Xarelto for stroke prophylaxis. Pneumoni
[2022-12-01] MEDS: MORPHINE SULFATE (*CRX) 2 MG/ML INJ IV PUSH ×4 (07:26→13:03)
[2022-12-01 08:51] LABS: Basophils Percent Auto 0.2 % (0.2-1.2); Eosinophils Absolute Auto 0.1 K/mm3 (0-0.3); Eosinophils Percent Auto 0.7 % (0-4.4); Hematocrit 39.1 % (37.0-47.0); Hemoglobin 12.5 g/dL (12.0-15.0); Immature Granulocyte Absolute 0.08 K/mm3 (0.00-0.031); Immature Granulocyte Percent A 0.7 % (0-0.5); Lymphocytes Absolute Auto 0.51 K/mm3 (0.9-3.2); Lymphocytes Percent Auto 4.4 % (18.3-44.2); Mean Corpuscular Hemoglobin 33.8 pg (26-34); Mean Corpuscular Volume 105.7 fl (80-100); Mean Platelet Volume 9.6 fl (7.4-10.4); Monocytes Absolute Auto 0.9 K/mm3 (0.1-0.6); Monocytes Percent Auto 7.4 % (2.6-8.5); Neutrophils Absolute Auto 9.9 K/mm3 (1.3-6.7); Neutrophils Percent Auto 86.6 % (45.5-73.1); Platelet Count Result 151 k/mm3 (150-375); Red Cell Distribution Width 14.2 % (11.5-14.5); White Blood Count 11.5 K/mm3 (4.5-10.0)
[2022-12-01 09:04] LABS: Alanine Aminotransferase 25 U/L (6-35); Albumin Level 3.5 g/dL (3.5-5.1); Alkaline Phosphatase 100 U/L (38-126); Aspartate Amino Transferase 32 U/L (14-36); Bilirubin,Total 0.6 mg/dL (0.2-1.3); Blood Urea Nitrogen 27 mg/dL (7-17); Calcium 8.3 mg/dL (8.4-10.2); Carbon Dioxide > 40 mmol/L (22-30); Chloride 98 mmol/L (98-107); Estimated CRCL calculation 47 ml/min; Estimated Glomerular Filt Rate 53; Glucose 111 mg/dL (65-110); Potassium 4.2 mmol/L (3.4-5.0); Sodium 140 mmol/L (137-145)
[2022-12-01 09:07] LABS: INR 1.2; Prothrombin Time 15.5 Seconds (11.1-14.7)
[2022-12-01 09:08] LABS: Partial Thromboplastin Time 30.8 SECONDS (22.3-36.8)
[2022-12-01 09:13] LABS: Anisocytosis 1+ (NORMAL); Platelet Estimate Adequate (Adequate); Schistocytes None Seen (NORMAL)
== END 2022-12-01 13:12 | disposition short-term general hospital (02) ==
PROVIDERS: Emergency Provider Emergency Medicine; PCP Internal Medicine
DX: S79.192A Other physeal fracture of lower end of left femur, initial encounter for closed fracture (principal); S49.92XA Unspecified injury of left shoulder and upper arm, initial encounter; I48.0 Paroxysmal atrial fibrillation; I11.0 Hypertensive heart disease with heart failure; I50.32 Chronic diastolic (congestive) heart failure; E78.5 Hyperlipidemia, unspecified; K21.9 Gastro-esophageal reflux disease without esophagitis; E66.01 Morbid (severe) obesity due to excess calories; Z68.43 Body mass index [BMI] 50.0-59.9, adult; G47.33 Obstructive sleep apnea (adult) (pediatric); G25.81 Restless legs syndrome; E89.0 Postprocedural hypothyroidism; F32.A Depression, unspecified; F41.9 Anxiety disorder, unspecified; Z96.653 Presence of artificial knee joint, bilateral; Z85.850 Personal history of malignant neoplasm of thyroid; Z86.16 Personal history of COVID-19; Z87.01 Personal history of pneumonia (recurrent); Z98.42 Cataract extraction status, left eye; Z98.41 Cataract extraction status, right eye; Z90.710 Acquired absence of both cervix and uterus; Z79.01 Long term (current) use of anticoagulants; M19.012 Primary osteoarthritis, left shoulder; W18.30XA Fall on same level, unspecified, initial encounter
CPT/HCPCS: 29505; 36415; 70450; 73030; 73502; 73552; 73562; 80053; 85025; 85610; 85730; 96374; 96376; 99285; J2270

== ENCOUNTER 2023-01-06 10:10 | Inpatient (IN) | payer MEDICARE, SELFPAY ==
[2023-01-06] VITALS (27 sets, daily range): BP systolic 108–184; BP diastolic 71–155; PULSE 73–134; RESP 16–24; TEMP 36.3–36.8; O2SAT 81–100; BMI 53.6
--- NOTE | ~2023-01-06 | XR_ITS ---
Portable chest x-ray Comparison: 01/06/2023 Clinical History: CHF Findings: There is probable minimal right pleural effusion and right basilar atelectatic change. Lef t lung essentially clear. Cardiomediastinal silhouette is stable. Bones and soft tissues are unremar kable. Impression: Minimal right pleural effusion and right basilar atelectatic change. Reviewed, dictated and finalized at location . Impression: Minimal right pleural effusion and right basilar atelectatic change.
--- NOTE | ~2023-01-06 | XR_ITS ---
XR chest 1V portable DATE: 01/06/2023 10:52 INDICATION: Shortness of breath for 3 days TECHNIQUE: Portable AP chest on 01/06/2023 at 1047 hours COMPARISON: 03/04/2021 portable AP chest FINDINGS: There is cardiomegaly, pulmonary vascular congestion and redistribution, prominence of the minor fissure consistent with subpleural edema and Amy B-lines consistent with pulmonary interstit ial edema. Small right pleural effusion is suspected. There is mild infiltrate or atelectasis involvi ng primarily the lung bases, right greater than left Aortic calcification. Surgical clips overlie the thyroid area. Diffuse osteopenia. IMPRESSION: Congestive heart failure and pulmonary edema Bilateral lower lung infiltrate and/atelectasis Reviewed, dictated and finalized at location A.
--- NOTE | 2023-01-06 10:17 | ECG_ITS ---
Measurements Intervals Economy Rate: 112 P: [place]: 0 QRS: 48 QRSD: 72 T: 48 QT: 380 QTc: 520 Interpretive Statements ATRIAL FIBRILLATION WITH RAPID VENTRICULAR RESPONSE NONSPECIFIC ST & T-WAVE ABNORMALITY ABNORMAL RHYTHM ECG COMPARED TO ECG 03/01/2021 18:15:00 T-WAVE ABNORMALITY NOW PRESENT Electronically Signed On 01-06-2023 11:15:22 CDT by Brinda Sullivan MD
[2023-01-06] MEDS: ALBUTEROL SULFATE NEB 2.5 MG/3 ML INH INHALATION (10:29)
[2023-01-06] MEDS: IPRATROPIUM BR 0.02% INH SOLN 0.5 MG/2.5 ML VIAL INHALATION (10:30)
[2023-01-06 10:49] LABS: Basophils Absolute Auto 0.1 K/mm3 (0.0-0.1); Basophils Percent Auto 0.3 % (0.2-1.2); Eosinophils Absolute Auto 0.1 K/mm3 (0-0.3); Eosinophils Percent Auto 0.8 % (0-4.4); Hematocrit 41.7 % (37.0-47.0); Immature Granulocyte Percent A 1.3 % (0-0.5); Lymphocytes Absolute Auto 0.45 K/mm3 (0.9-3.2); Lymphocytes Percent Auto 2.8 % (18.3-44.2); Mean Corpuscular HGB Conc 31.2 g/dl (32-36); Mean Corpuscular Hemoglobin 33.9 pg (26-34); Mean Corpuscular Volume 108.9 fl (80-100); Mean Platelet Volume 9.2 fl (7.4-10.4); Monocytes Absolute Auto 0.7 K/mm3 (0.1-0.6); Monocytes Percent Auto 4.3 % (2.6-8.5); Neutrophils Absolute Auto 14.4 K/mm3 (1.3-6.7); Neutrophils Percent Auto 90.5 % (45.5-73.1); Platelet Count Result 297 k/mm3 (150-375); Red Blood Count 3.83 M/mm3 (4.2-5.4); Red Cell Distribution Width 19.2 % (11.5-14.5); White Blood Count 15.9 K/mm3 (4.5-10.0)
[2023-01-06 11:02] LABS: Alanine Aminotransferase 21 U/L (6-35); Albumin Level 3.8 g/dL (3.5-5.1); Alkaline Phosphatase 198 U/L (38-126); Aspartate Amino Transferase 42 U/L (14-36); Bilirubin,Total 1.1 mg/dL (0.2-1.3); Blood Urea Nitrogen 11 mg/dL (7-17); Calcium 8.4 mg/dL (8.4-10.2); Carbon Dioxide > 40 mmol/L (22-30); Chloride 93 mmol/L (98-107); Estimated CRCL calculation 91 ml/min; Estimated Glomerular Filt Rate > 60; Glucose 116 mg/dL (65-110); INR 1.2; Potassium 3.6 mmol/L (3.4-5.0); Prothrombin Time 16.4 Seconds (11.1-14.7); Sodium 134 mmol/L (137-145)
[2023-01-06 11:11] LABS: NT Pro B Type Natriuretic Pept 3790 pg/mL (19.9-100)
[2023-01-06] MEDS: dilTIAZem HCl INJ 25 MG/5 ML VIAL 10 MG IV PUSH (11:19)
[2023-01-06] MEDS: FUROSEMIDE INJ 40 MG/4 ML VIAL IV PUSH ×2 (11:19→17:22)
[2023-01-06 11:29] LABS: Influenza A QL RT-PCR Negative (Negative); Influenza B QL RT-PCR Negative (Negative); SARS-CoV-2 RNA PCR Positive (Negative)
[2023-01-06 11:45] LABS: Alveolar/Arterial O2 Gradient 110.9 mmHg; Base Excess ABG 13.6 mEq/l (+/-2.0); Device NASAL CANNULA; Fractional Inspired Oxygen 36 %; Methemoglobin ABG 0.3 %THb (0-1.5); Modified Allen's Test Pass; Oxygen Content ABG 17.4 %vol (16.0-22.0); Oxygen Saturation ABG 95.8 % (95.0-100.0); Oxyhemoglobin 92.8 % THb (90.0-100.0); PCO2 ABG 58.4 mmHg (35.0-45.0); PO2 FiO2 Ratio Arterial Blood 2.17 %; Reduced Hemoglobin 4.9 %THb (0-5.0); Site Drawn RIGHT RADIAL; Total Hemoglobin 13.3 g/dL (12.0-18.0); pH ABG 7.454 (7.350-7.450)
--- NOTE | 2023-01-06 12:31 | PM.IMHP ---
H&P: HPI History of Present Illness Date/Time: 01/06/23 12:31 Chief Complaint: This is an 82-year-old female patient is admitted to the hospital after 4-5 days of increasing difficulty breathing at home. Narrative: Patient states that she is recovering from left hip surgery and lives at home with her . She states that she has been having difficulty getting around the last few days and has been progressively more short of breath. She has a history of congestive heart failure acute and chronic respiratory failure with hypoxia hypothyroidism obstructive sleep apnea, hyperlipidemia, hypertension and atrial fibrillation. Patient was found to be COVID positive in the emergency department, currently requiring supplemental oxygenation and is at risk for worsening condition. she also has a leukocytosis with a white count 15.9, ABG shows an over compensated mixed respiratory acidosis and metabolic alkalosis. She has a proBNP 3790. Patient denies any chest pain abdominal pain, diarrhea, fever or chills. Patient reports nausea and constipation which she states was just relieved by having a large bowel movement in the ER. No appearance of bloody stools. She will be admitted under observation status. Review of Systems Review of Systems: All systems reviewed & are unremarkable except as noted in HPI and below PMFSH Past Medical History Medical History Anemia Anxiety Chronic diastolic congestive heart failure Echocardiogram in October 2018 demonstrated hyperdynamic left ventricular function with an ejection fraction of 71%, moderate left atrial enlargement, and grade 2 diastolic dysfunction. Chronic pain syndrome Chronic wound infection of abdomen On long-term doxycycline b.i.d. 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 Depression Essential hypertension Gastroesophageal reflux disease Hyperlipidemia Hypothyroidism (acquired) Macular degeneration Morbid obesity Obstructive sleep apnea on CPAP Overactive bladder Paroxysmal atrial fibrillation On Xarelto for stroke prophylaxis. Pneumonia due to COVID-19 virus (~03/2020) Postsurgical hypothyroidism Restless leg syndrome Shingles Thyroid cancer Status post thyroidectomy. Surgical History Surgical History H/O bilateral cataract extraction History of appendectomy (~2003) Complicated postoperative course with chronic midline abdominal wound. History of hernia repair History of orthopedic surgery ORIF right lower extremity fracture. History of ovarian cystectomy History of spinal surgery History of thyroidectomy History of total abdominal hysterectomy History of total bilateral knee replacement Family History Family History Mother Alzheimer's dementia Hypertension Father Acute myocardial infarction Sibling Hypertension Son Heart attack Social History Social History Social History: Lives at home with her . Children are grown, closest 1 lives in [place]. Surrogate decision maker: Prince Rogel, . Code status: Full code. Smoking status: Never smoker Second hand tobacco smoke exposure: No Alcohol intake: never Substance use: never Additional living arrangements comments: Lives in [place] with her . They have 3 children. Ambulates with a walker. Occupation/Education: retired Gender identity (if verbalized by the patient): Female Sexual Orientation (if Verbalized by the Patient): Straight or Heterosexual Spiritual care concerns: No Meds Home Medications and Allergies Home Medications Medication Instructions Recorded Confirmed Type atorvastatin 40 mg tablet 40 mg PO HS 02/16/20 01/06/23 History biotin 10,000
--- NOTE | 2023-01-06 12:33 | ED.SOB ---
HPI - SOB/Dyspnea General Chief Complaint: Shortness of Breath/Dyspnea Stated Complaint: dyspnea/ covid+ History of Present Illness HPI Narrative: Patient is an 82-year-old female who presents ER with shortness of breath. Patient recently became COVID-positive. She has history of CHF. She denies any new productive cough and she is unsure of whether she is COVID-positive however nursing report was called to confirm this. She denies any chest pain or chest pressure. No orthopnea. No productive cough. Denies dizziness. Reports compliance with home medications. Related Data Home Medications Medication Instructions Recorded Confirmed atorvastatin 40 mg tablet 40 mg PO HS 02/16/20 01/06/23 biotin 10,000 mcg disintegrating 10,000 mcg PO DAILY 02/16/20 02/28/21 tablet bupropion HCl 150 mg tablet,12 hr 150 mg PO BID 02/16/20 01/06/23 sustained-release clonazepam 1 mg tablet 1 mg PO DAILY PRN Anxiety 02/16/20 01/06/23 duloxetine 30 mg capsule,delayed 30 mg PO HS 02/16/20 02/28/21 release sprinkle esomeprazole magnesium 40 mg 40 mg PO DAILY 02/16/20 02/28/21 capsule,delayed release gabapentin 100 mg capsule 100 mg PO QAM 02/16/20 01/06/23 mirtazapine 15 mg disintegrating 15 mg PO HS 02/16/20 01/06/23 tablet oxycodone-acetaminophen 5 mg-325 1 tablet PO Q6H PRN Pain, Moderate 02/16/20 02/28/21 mg tablet potassium chloride 20 mEq 40 meq PO DAILY 02/16/20 02/28/21 tablet,extended release rivaroxaban 20 mg tablet (Xarelto) 20 mg PO DAILY 02/16/20 02/28/21 trazodone 100 mg tablet 200 mg PO HS 02/16/20 02/28/21 valsartan 320 mg tablet 320 mg PO DAILY 02/16/20 02/28/21 vit C 250 mg-vit E 90 mg-zinc 40 1 tablet PO BID 02/16/20 02/28/21 mg-copper 1 [id number] capsule (PreserVision AREDS-2) pramipexole 1 mg tablet 1 mg PO HS 08/04/20 02/28/21 calcium carbonate 600 mg-vitamin 1 cap PO DAILY 10/15/20 01/06/23 D3 12.5 mcg (500 unit) capsule cholecalciferol (vitamin D3) 50 50 mcg PO DAILY 10/15/20 02/28/21 mcg (2,000 unit) capsule famotidine 40 mg tablet 40 mg PO HS 10/15/20 02/28/21 methotrexate sodium 2.5 mg tablet 2.5 mg PO DAILY 10/15/20 02/28/21 mirabegron 25 mg tablet,extended 25 mg PO DAILY 10/15/20 02/28/21 release 24 hr (Myrbetriq) pramipexole 0.25 mg tablet 0.25 mg PO HS 10/15/20 02/28/21 trospium 20 mg tablet 20 mg PO DAILY 10/15/20 02/28/21 Fleet Enema 1 ea RECTAL DAILY PRN Constipation 01/06/23 01/06/23 acetaminophen 500 mg tablet 1,000 mg PO Q6H PRN Pain 01/06/23 01/06/23 (Tylenol Extra Strength) ascorbic acid (vitamin C) 500 mg 500 mg PO BID 01/06/23 01/06/23 tablet cetirizine 10 mg tablet 10 mg PO DAILY 01/06/23 01/06/23 diltiazem HCl 60 mg tablet 60 mg PO TID 01/06/23 01/06/23 (Cardizem) ferrous gluconate 324 mg (38 mg See Rx Instructions .Route .COMPLEX 01/06/23 01/06/23 iron) tablet gabapentin 100 mg capsule 400 mg PO HS 01/06/23 01/06/23 hydrocortisone 2.5 % rectal cream 1 ea RECTAL Q12H PRN Hemorrhoids 01/06/23 01/06/23 with applicator levothyroxine 150 mcg capsule 150 mcg PO QAM 01/06/23 01/06/23 magnesium citrate (Citroma oral 1 PO PRN Constipation 01/06/23 solution) methocarbamol 750 mg PO TID 01/06/23 01/06/23 metoprolol succinate 25 mg PO DAILY 01/06/23 01/06/23 Allergies Allergy/AdvReac Type Severity Reaction Status Date / Time Methotrexate Analogues Allergy Unknown mouth sores Verified 12/01/22 07:00 Sulfa (Sulfonamide Allergy Unknown unknown Verified 07/22/23 07:00 Antibiotics) Review of Systems Review of Systems: All systems reviewed & are unremarkable except as noted in HPI and below Constitutional: Constitutional: Denies chills, Reports fatigue and Reports fever(s) ENT: Denies nasal congestion and Denies sore throat Cardiovascular: Cardiovascular: Denies chest pain, Denies rapid heart rate and Denies radiating jaw, neck or arm pain Respiratory: Respiratory: Reports cough and Reports dyspnea Gastrointestinal: Gastrointestinal: Denies abdominal
[2023-01-06] MEDS: POTASSIUM CHLORIDE 20 MEQ ER TABLET PO (17:22)
[2023-01-06] MEDS: REMDESIVIR 200 MG/NS 250 ML 200 MG/250 ML BAG 250 MG IVPB (17:22)
[2023-01-06] MEDS: RIVAROXABAN 20 MG TABLET PO (17:23)
--- NOTE | 2023-01-06 17:43 | ADMGEN ---
This patient, Michelle Rogel, was admitted to IMU Room 207-01. Patient/family oriented to hospital policies and general routines including ID bracelet, bed and alarms, visiting hours, pain management, procedures, bathroom and other care routines, personal items, smoking policy, room service/diet, and visiting hours. Information on how to activate the Rapid Response Team has been discussed. Patient/Family are encouraged to report perceived risks to care and to ask questions if they do not understand what they are told or what they should do.
[2023-01-06 19:10] LABS: Appearance Urine Clear (Clear); Bilirubin Urine Negative (Negative); Blood Urine Negative (Negative); Color Urine Yellow (Yellow); Glucose Urine UA Negative (Negative); Ketones Urine Negative (Negative); Leukocyte Esterase Ur Negative LEU/UL (Negative); Nitrate Urine Negative (Negative); Protein Urine Negative (Negative); Specific Grav Ur 1.008 (1.001-1.035); pH Urine 7.5 (5.0-9.0)
[2023-01-06 19:15] LABS: Add Urine Microscopic? NO
[2023-01-06] MEDS: ASCORBIC ACID 500 MG TABLET PO (21:00)
[2023-01-06] MEDS: buPROPion HCL SR (12 HR) 150 MG TAB PO (21:00)
[2023-01-06] MEDS: MIRTAZAPINE SOLTAB 15 MG TAB.DISPER PO (21:00)
[2023-01-06] MEDS: methocarbamoL 750 MG TABLET PO (21:01)
[2023-01-06] MEDS: dilTIAZem HCL 60 MG TABLET PO (21:01)
[2023-01-06] MEDS: FAMOTIDINE 20 MG TABLET 40 MG PO (21:01)
[2023-01-06] MEDS: GABAPENTIN 400 MG CAPSULE PO (21:02)
[2023-01-06] MEDS: PANTOPRAZOLE 40 MG TABLET PO (21:02)
[2023-01-06] MEDS: ATORVASTATIN 40 MG TABLET PO (21:02)
[2023-01-06 21:24] LABS: INR 2.7; Prothrombin Time 31.1 Seconds (11.1-14.7)
[2023-01-06 21:34] LABS: Alanine Aminotransferase 18 U/L (6-35); Estimated CRCL calculation 67 ml/min; Estimated Glomerular Filt Rate > 60
[2023-01-07] VITALS (16 sets, daily range): BP systolic 116–174; BP diastolic 69–125; PULSE 71–95; RESP 18–22; TEMP 36.2–36.8; O2SAT 94–100
--- NOTE | 2023-01-07 | ECHO_ITS ---
Patient Info Name: Michelle Rogel Age: 82 years : 1940 Gender: Female Ht: 60 in Wt: 274 lbs BSA: 2.38 m2 HR: 95 bpm BP: 116 / 73 mmHg Heart Rhythm: Atrial Flutter Technical Quality: Fair Exam Date: 01/07/2023 2:25 PM Exam Location: [facility] Card Pulmonary Patient Status: Outpatient Admit Date: 01/06/2023 Staff Ordering Physician: Blake Mathews APRN [employer] Picking Supervisor: Radha Dixon RDCS Attending Provider: Duong Angelo MD Referring Physician: Reid WILKS; Exam Type: CA echo dop color flow w con Study Info Indications - chf exacerbation, covid positive Complete two-dimensional, color flow and Doppler transthoracic echocardiogram is performed with contrast to opacify the left ventricle and to improve the deliniation of the left ventricle endocardial borders. Contrast/Agitated Saline Contrast/Ag. Saline: Definity Amount: 2.00 ml Administered By: Radha Dixon RDCS Existing IV Access: Yes IV Access Condition: patent with no signs of infiltration Summary 1. Obesity results in difficult imaging, definity contrast used to improve exam. 2. Normal left ventricular size with good systolic function. 3. Severe biatrial dilation. 4. Sclerotic but not stenotic aortic valve. 5. Atrial flutter/atrial fibrillation. Left Ventricle Left ventricular chamber dimension is normal. Left ventricular systolic function is normal, estimated at 60-65%. The left ventricular diastolic function is abnormal. Right Ventricle Right ventricular chamber dimension is not well visualized. Left Atria Left atrial chamber dimension is severely enlarged. Right Atria Right atrial chamber dimension is severely enlarged. Aortic Valve The aortic valve is trileaflet. There is mild aortic valve sclerosis. Pulmonic Valve The pulmonic valve is not well visualized. Mitral Valve The mitral valve has normal leaflets. There is trace mitral valve regurgitation. Tricuspid Valve The tricuspid valve leaflets are not well visualized. Pericardium/Pleural The pericardium appears normal. Aorta The aortic root size at the sinus of Valsalva is normal. Left Ventricular Outflow Tract Name Value Normal LVOT 2D LVOT Diameter 1.98 cm LVOT Doppler LVOT Peak Gradient 3 mmHg LVOT Mean Gradient 1 mmHg LVOT VTI 15.39 cm LVOT VTI/AV VTI Ratio 0.59 LVOT Stroke Volume 47.26 ml LVOT CO 10.21 l/min LVOT CI 4.29 L/min/m2 Mitral Valve Name Value Normal MV Doppler MV Peak Gradient 13 mmHg MV Mean Gradient 4 mmHg MV Decel Hubbard 1,194.98 cm/s2 MV PHT 0 s MV Area (PHT) 6.60 cm2
[2023-01-07 04:58] LABS: Basophils Percent Auto 0.1 % (0.2-1.2); Eosinophils Percent Auto 0.1 % (0-4.4); Hematocrit 38.4 % (37.0-47.0); Hemoglobin 12.1 g/dL (12.0-15.0); Immature Granulocyte Absolute 0.08 K/mm3 (0.00-0.031); Immature Granulocyte Percent A 1.1 % (0-0.5); Lymphocytes Absolute Auto 0.29 K/mm3 (0.9-3.2); Mean Corpuscular HGB Conc 31.5 g/dl (32-36); Mean Corpuscular Hemoglobin 34.1 pg (26-34); Mean Corpuscular Volume 108.2 fl (80-100); Mean Platelet Volume 9.2 fl (7.4-10.4); Monocytes Absolute Auto 0.2 K/mm3 (0.1-0.6); Neutrophils Absolute Auto 6.8 K/mm3 (1.3-6.7); Neutrophils Percent Auto 92.7 % (45.5-73.1); Platelet Count Result 259 k/mm3 (150-375); Red Blood Count 3.55 M/mm3 (4.2-5.4); Red Cell Distribution Width 18.6 % (11.5-14.5); White Blood Count 7.3 K/mm3 (4.5-10.0)
[2023-01-07 05:11] LABS: INR 2.1; Prothrombin Time 25.1 Seconds (11.1-14.7)
[2023-01-07 05:13] LABS: Alanine Aminotransferase 17 U/L (6-35); Blood Urea Nitrogen 11 mg/dL (7-17); Calcium 8.2 mg/dL (8.4-10.2); Carbon Dioxide > 40 mmol/L (22-30); Chloride 93 mmol/L (98-107); Estimated CRCL calculation 67 ml/min; Estimated Glomerular Filt Rate > 60; Glucose 144 mg/dL (65-110); Potassium 3.4 mmol/L (3.4-5.0); Sodium 135 mmol/L (137-145)
[2023-01-07] MEDS: LEVOTHYROXINE SODIUM 150 MCG TABLET PO (05:30)
[2023-01-07] MEDS: FERROUS GLUCONATE 324 MG TABLET 648 MG BY MOUTH (08:38)
[2023-01-07] MEDS: ASCORBIC ACID 500 MG TABLET PO ×2 (08:38→16:57)
[2023-01-07] MEDS: METOPROLOL SUCCINATE EXT REL 25 MG TABCR PO (08:38)
[2023-01-07] MEDS: GABAPENTIN 100 MG CAPSULE PO (08:38)
[2023-01-07] MEDS: FUROSEMIDE INJ 40 MG/4 ML VIAL IV PUSH ×2 (08:39→16:56)
[2023-01-07] MEDS: POTASSIUM CHLORIDE 20 MEQ ER TABLET PO ×2 (08:39→16:57)
[2023-01-07] MEDS: methocarbamoL 750 MG TABLET PO ×3 (08:39→16:57)
[2023-01-07] MEDS: buPROPion HCL SR (12 HR) 150 MG TAB PO ×2 (08:39→16:56)
[2023-01-07] MEDS: PANTOPRAZOLE 40 MG TABLET PO ×2 (08:39→20:02)
[2023-01-07] MEDS: dilTIAZem HCL 60 MG TABLET PO ×3 (08:39→16:57)
[2023-01-07] MEDS: LORATADINE 10 MG TABLET PO (08:39)
[2023-01-07] MEDS: hydrALAZINE HCL 20 MG/ML VIAL 10 MG IV PUSH (08:40)
[2023-01-07] MEDS: HYDROcodone/acetaminophen (*CRX) 5-325 MG TABLET 1 TAB PO ×2 (09:56→18:29)
--- NOTE | 2023-01-07 11:30 | PM.IMPN ---
Progress Note: A&P Assessment and Plan (1) Acute exacerbation of CHF (congestive heart failure): Code(s): I50.9 - Heart failure, unspecified Status: Acute Assessment and Plan: Pro BNP is elevated patient has crackles and history of chronic diastolic heart failure. IV Lasix 40 mg b.i.d. with potassium oral 20 mEq b.i.d. is ordered. Echo pending (2) COVID-19: Code(s): U07.1 - COVID-19 Status: Acute Assessment and Plan: Patient has hypoxia with COVID 19 diagnosis. Ordered IV dexamethasone and remdesivir. Patient is at high risk for worsening with COVID. (3) Atrial fibrillation with RVR: Code(s): I48.91 - Unspecified atrial fibrillation Status: Acute Assessment and Plan: Patient was in rapid atrial fibrillation in the emergency department with concomitant hypoxia. She received IV diltiazem one time push (4) Acute respiratory failure due to COVID-19: Code(s): U07.1 - COVID-19; J96.00 - Acute respiratory failure, unspecified whether with hypoxia or hypercapnia Status: Acute Assessment and Plan: Acute hypercapnic and hypoxic respiratory failure with concomitant CHF and COVID-19. (5) Current use of correction anticoagulation: Code(s): Z79.01 - shelter (current) use of anticoagulants Status: Chronic Assessment and Plan: On Xarelto for VTE prophylaxis due to atrial fibrillation (6) Essential hypertension: Code(s): I10 - Essential (primary) hypertension Status: Chronic Assessment and Plan: Blood pressure elevated p.r.n. hydralazine ordered. Continue home medication (7) Obstructive sleep apnea on CPAP: Code(s): G47.33 - Obstructive sleep apnea (adult) (pediatric); Z99.89 - Dependence on other enabling machines and devices Status: Chronic Assessment and Plan: Continue home CPAP, follow isolation restrictions related to aerosolized room. Plan DVT prophylaxis on Xarelto Subjective Date/time seen: 01/07/23 11:30 Interval history: Anxious and weak. Working with therapy this. Having some loose 2. Review of Systems Review of Systems: All systems reviewed & are unremarkable except as noted in HPI and below Exam Narrative: GENERAL: ill appearing, alert and oriented, not in acute distress HEENT: Pupils are equally round and briskly reactive to light. Extraocular muscles are intact. Oral mucous membranes are moist without lesions. NECK: The patient has no noted JVD. No adenopathy is appreciated. CHEST/LUNGS: Lungs are diminished bilaterally no wheezes HEART: The patient has a variable, irregular rate and irregularly irregular rhythm. No murmurs, rubs, or gallops are appreciated. Distal pulses are 2+. ABDOMEN: The patient's abdomen is soft, nontender, and nondistended. Bowel sounds are positive. No peritoneal signs. EXTREMITIES: The patient has no peripheral edema. There is no focal long bone tenderness or deformity. SKIN: The patient's skin is warm and dry, without rashes or lesions. 4 lobo noted in left groin from prior laceration. PSYCHIATRIC: The patient has normal mental status and has an appropriate affect. NEUROLOGIC: There are no gross deficits to the cranial nerves. Objective Data Vital Signs Vital Signs: Vital Signs - 24 hr 01/06/23 11:32 01/06/23 12:18 01/06/23 12:35 Temperature Pulse Rate 103 H 93 93 Respiratory Rate 18 16 16 Blood Pressure 127/96 H Pulse Oximetry 100 95 Oxygen Delivery Oxygen Flow Rate 01/06/23 12:45 01/06/23 12:53 01/06/23 13:00 Temperature Pulse Rate 98 106 H 93 Respiratory Rate 18 21 H 19 Blood Pressure 148/115 H Pulse Oximetry 91 98 Oxygen Delivery Oxygen Flow Rate 01/06/23 13:01 01/06/23 13:15 01/06/23 13:30 Temperature Pulse Rate 113 H 84 95 Respiratory Rate 19 18 19 Blood Pressure 145/71 H Pulse Oximetry 98 100 100 Oxygen Delivery Oxygen Flow Rate 01/06/23 14:31 01/06/23 16:00
[2023-01-07] MEDS: LOPERAMIDE HCL 2 MG CAPSULE 4 MG PO ×2 (11:33→17:10)
[2023-01-07] MEDS: clonazePAM (*CRX) 0.5 MG TABLET 1 MG PO (11:33)
[2023-01-07] MEDS: POTASSIUM CHLORIDE 20 MEQ ER TABLET 40 MEQ PO (13:48)
[2023-01-07] MEDS: PERFLUTREN LIPID MICROSPHERES 1.5 ML VIAL DILUTED TO 10 ML TOTAL VOLUME IV PUSH (15:00)
--- NOTE | 2023-01-07 16:37 | IVDEFINITY ---
Prior to administration of IV Definity the patient was educated on the risks and benefits of the imaging enhancing agent including potential adverse side effects. The patient verbalized understanding. Allergies were verified. No exclusion criteria were identified and at least one of the following inclusion criteria were met: 1) physician request, 2) patient technically difficult to image (per the [place] [employer] guidelines of two or more segments not discernable within the apical view), or 3) questionable left ventricular function. ?
[2023-01-07] MEDS: RIVAROXABAN 20 MG TABLET PO (16:57)
--- NOTE | 2023-01-07 18:05 | PM.IMPN ---
Progress Note: A&P Assessment and Plan (1) Acute exacerbation of CHF (congestive heart failure): Code(s): I50.9 - Heart failure, unspecified Status: Acute Assessment and Plan: Pro BNP is elevated patient has crackles and history of chronic diastolic heart failure. IV Lasix 40 mg b.i.d. with potassium oral 20 mEq b.i.d. is ordered. Echo 01/07/2023: Normal ejection fraction severe biatrial dilation atrial fibrillation/flutter sclerotic aortic valve (2) COVID-19: Code(s): U07.1 - COVID-19 Status: Acute Assessment and Plan: Patient has hypoxia with COVID 19 diagnosis. Remains on IV dexamethasone and remdesivir. Patient is at high risk for worsening with COVID. (3) Atrial fibrillation with RVR: Code(s): I48.91 - Unspecified atrial fibrillation Status: Acute Assessment and Plan: Patient was in rapid atrial fibrillation in the emergency department with concomitant hypoxia. She received IV diltiazem one time push Controlled with and Cardizem On (4) Acute respiratory failure due to COVID-19: Code(s): U07.1 - COVID-19; J96.00 - Acute respiratory failure, unspecified whether with hypoxia or hypercapnia Status: Acute Assessment and Plan: Acute hypercapnic and hypoxic respiratory failure with concomitant CHF and COVID-19. (5) Current use of technician terminal and repeater anticoagulation: Code(s): Z79.01 - [facility] (current) use of anticoagulants Status: Chronic Assessment and Plan: On Xarelto for VTE prophylaxis due to atrial fibrillation (6) Essential hypertension: Code(s): I10 - Essential (primary) hypertension Status: Chronic Assessment and Plan: Blood pressure elevated p.r.n. hydralazine ordered. Continue home medication (7) Obstructive sleep apnea on CPAP: Code(s): G47.33 - Obstructive sleep apnea (adult) (pediatric); Z99.89 - Dependence on other enabling machines and devices Status: Chronic Assessment and Plan: Continue home CPAP, follow isolation restrictions related to aerosolized room. Plan DVT prophylaxis on Xarelto Subjective Date/time seen: 01/07/23 18:05 Interval history: no overnight events breathing is getting better. Shortness of breath with exertion. Remains on 3 L oxygen Review of Systems Review of Systems: All systems reviewed & are unremarkable except as noted in HPI and below Exam Narrative: GENERAL: ill appearing, alert and oriented, not in acute distress HEENT: Pupils are equally round and briskly reactive to light. Extraocular muscles are intact. Oral mucous membranes are moist without lesions. NECK: The patient has no noted JVD. No adenopathy is appreciated. CHEST/LUNGS: Lungs are diminished bilaterally no wheezes HEART: The patient has a variable, irregular rate and irregularly irregular rhythm. No murmurs, rubs, or gallops are appreciated. Distal pulses are 2+. ABDOMEN: The patient's abdomen is soft, nontender, and nondistended. Bowel sounds are positive. No peritoneal signs. EXTREMITIES: The patient has no peripheral edema. There is no focal long bone tenderness or deformity. SKIN: The patient's skin is warm and dry, without rashes or lesions. 4 lobo noted in left groin from prior laceration. PSYCHIATRIC: The patient has normal mental status and has an appropriate affect. NEUROLOGIC: There are no gross deficits to the cranial nerves. Objective Data Vital Signs Vital Signs: Vital Signs - 24 hr 01/06/23 20:00 01/06/23 20:00 01/06/23 22:12 Temperature 97.6 F Pulse Rate 82 Respiratory Rate 22 H 17 Blood Pressure 144/85 H Pulse Oximetry 94 98 95 Oxygen Delivery Nasal Cannula Autopap Oxygen Flow Rate 4 Fraction of Inspired Oxygen 01/06/23 22:15 01/06/23 23:14 01/06/23 20:00 Temperature 97.9 F Pulse Rate 89 83 Respiratory Rate 18 20 Blood Pressure 136/79 Pulse Oximetry 95 95 Oxygen Delivery Nasal Cannula Oxygen Flow Rate 4 F
[2023-01-07] MEDS: guaiFENesin 12 HR 600 MG TABCR 1200 MG PO (20:01)
[2023-01-07] MEDS: ATORVASTATIN 40 MG TABLET PO (20:01)
[2023-01-07] MEDS: FAMOTIDINE 20 MG TABLET 40 MG PO (20:02)
[2023-01-07] MEDS: GABAPENTIN 400 MG CAPSULE PO (20:02)
[2023-01-07] MEDS: PRAMIPEXOLE 0.25 MG TABLET PO (20:02)
[2023-01-07] MEDS: MIRTAZAPINE SOLTAB 15 MG TAB.DISPER PO (20:02)
[2023-01-07] MEDS: REMDESIVIR 100 MG/NS 250 ML 100 MG/250 ML BAG 250 MG IVPB (21:10)
[2023-01-08] VITALS (16 sets, daily range): BP systolic 131–157; BP diastolic 83–117; PULSE 69–100; RESP 18–22; TEMP 36.2–36.9; O2SAT 95–99
[2023-01-08 05:07] LABS: Basophils Percent Auto 0.1 % (0.2-1.2); Eosinophils Percent Auto 0.2 % (0-4.4); Hematocrit 39.5 % (37.0-47.0); Immature Granulocyte Absolute 0.09 K/mm3 (0.00-0.031); Immature Granulocyte Percent A 1.1 % (0-0.5); Lymphocytes Absolute Auto 0.47 K/mm3 (0.9-3.2); Lymphocytes Percent Auto 5.5 % (18.3-44.2); Mean Corpuscular HGB Conc 30.4 g/dl (32-36); Mean Corpuscular Hemoglobin 33.2 pg (26-34); Mean Corpuscular Volume 109.4 fl (80-100); Mean Platelet Volume 9.4 fl (7.4-10.4); Monocytes Absolute Auto 0.6 K/mm3 (0.1-0.6); Monocytes Percent Auto 6.7 % (2.6-8.5); Neutrophils Absolute Auto 7.4 K/mm3 (1.3-6.7); Neutrophils Percent Auto 86.4 % (45.5-73.1); Platelet Count Result 269 k/mm3 (150-375); Red Blood Count 3.61 M/mm3 (4.2-5.4); Red Cell Distribution Width 19.1 % (11.5-14.5); White Blood Count 8.6 K/mm3 (4.5-10.0)
[2023-01-08 05:18] LABS: INR 2.4; Prothrombin Time 27.6 Seconds (11.1-14.7)
[2023-01-08 05:20] LABS: Alanine Aminotransferase 17 U/L (6-35); Blood Urea Nitrogen 21 mg/dL (7-17); Calcium 8.3 mg/dL (8.4-10.2); Carbon Dioxide > 40 mmol/L (22-30); Chloride 95 mmol/L (98-107); Estimated CRCL calculation 66 ml/min; Estimated Glomerular Filt Rate > 60; Glucose 130 mg/dL (65-110); Potassium 3.9 mmol/L (3.4-5.0); Sodium 139 mmol/L (137-145)
[2023-01-08 05:44] LABS: Anisocytosis 2+ (NORMAL); Platelet Estimate Adequate (Adequate)
[2023-01-08 05:45] LABS: Macrocytosis 2+ (NORMAL); Schistocytes None Seen (NORMAL)
[2023-01-08] MEDS: LEVOTHYROXINE SODIUM 150 MCG TABLET PO (05:47)
[2023-01-08] MEDS: METOPROLOL SUCCINATE EXT REL 25 MG TABCR PO (09:22)
[2023-01-08] MEDS: guaiFENesin 12 HR 600 MG TABCR 1200 MG PO ×2 (09:23→21:01)
[2023-01-08] MEDS: ASCORBIC ACID 500 MG TABLET PO ×2 (09:23→17:25)
[2023-01-08] MEDS: LORATADINE 10 MG TABLET PO (09:23)
[2023-01-08] MEDS: OPTI-GEN TAB 2 TABLET PO (09:23)
[2023-01-08] MEDS: buPROPion HCL SR (12 HR) 150 MG TAB PO ×2 (09:23→17:25)
[2023-01-08] MEDS: GABAPENTIN 100 MG CAPSULE PO (09:23)
[2023-01-08] MEDS: POTASSIUM CHLORIDE 20 MEQ ER TABLET PO ×2 (09:24→17:25)
[2023-01-08] MEDS: FUROSEMIDE INJ 40 MG/4 ML VIAL IV PUSH ×2 (09:24→17:25)
[2023-01-08] MEDS: FERROUS GLUCONATE 324 MG TABLET 648 MG BY MOUTH (09:24)
[2023-01-08] MEDS: methocarbamoL 750 MG TABLET PO ×3 (09:24→17:25)
[2023-01-08] MEDS: PANTOPRAZOLE 40 MG TABLET PO ×2 (09:24→21:02)
[2023-01-08] MEDS: dilTIAZem HCL 60 MG TABLET PO ×3 (09:24→17:25)
[2023-01-08] MEDS: MIRABEGRON 25 MG ER TABLET PO (09:24)
[2023-01-08] MEDS: oxyCODONE HCL (*CRX) 5 MG TAB IR PO ×3 (09:34→21:04)
[2023-01-08] MEDS: clonazePAM (*CRX) 0.5 MG TABLET 1 MG PO (09:34)
[2023-01-08] MEDS: oxyCODONE HCL (*CRX) 2.5 MG TAB IR PO ×2 (15:07→21:03)
[2023-01-08] MEDS: RIVAROXABAN 20 MG TABLET PO (17:25)
[2023-01-08] MEDS: ATORVASTATIN 40 MG TABLET PO (21:01)
[2023-01-08] MEDS: GABAPENTIN 400 MG CAPSULE PO (21:01)
[2023-01-08] MEDS: FAMOTIDINE 20 MG TABLET 40 MG PO (21:01)
[2023-01-08] MEDS: PRAMIPEXOLE 0.25 MG TABLET PO (21:02)
[2023-01-08] MEDS: MIRTAZAPINE SOLTAB 15 MG TAB.DISPER PO (21:02)
[2023-01-08] MEDS: REMDESIVIR 100 MG/NS 250 ML 100 MG/250 ML BAG 250 MG IVPB (21:02)
[2023-01-08] MEDS: traZODone HCL 50 MG TABLET 100 MG PO (21:03)
--- NOTE | 2023-01-08 22:13 | PC.NURSE ---
This patient, Michelle Rogel, was transferred to [facility] on 01/08/23 at 2210. Personal belongings sent with patient. Report given to EDWARD Ham. Appropriate documentation sent with patient.
[2023-01-09] VITALS (13 sets, daily range): BP systolic 120–160; BP diastolic 56–90; PULSE 70–86; RESP 18–20; TEMP 36.6–37; O2SAT 97–98
[2023-01-09 05:42] LABS: Basophils Percent Auto 0.1 % (0.2-1.2); Eosinophils Percent Auto 0.1 % (0-4.4); Hematocrit 38.5 % (37.0-47.0); Hemoglobin 11.4 g/dL (12.0-15.0); Immature Granulocyte Absolute 0.07 K/mm3 (0.00-0.031); Immature Granulocyte Percent A 0.8 % (0-0.5); Lymphocytes Absolute Auto 0.61 K/mm3 (0.9-3.2); Lymphocytes Percent Auto 7.1 % (18.3-44.2); Mean Corpuscular HGB Conc 29.6 g/dl (32-36); Mean Corpuscular Hemoglobin 32.9 pg (26-34); Mean Corpuscular Volume 111.3 fl (80-100); Mean Platelet Volume 9.4 fl (7.4-10.4); Monocytes Absolute Auto 0.6 K/mm3 (0.1-0.6); Monocytes Percent Auto 7.4 % (2.6-8.5); Neutrophils Absolute Auto 7.2 K/mm3 (1.3-6.7); Neutrophils Percent Auto 84.5 % (45.5-73.1); Platelet Count Result 259 k/mm3 (150-375); Red Blood Count 3.46 M/mm3 (4.2-5.4); Red Cell Distribution Width 18.6 % (11.5-14.5); White Blood Count 8.6 K/mm3 (4.5-10.0)
[2023-01-09 05:50] LABS: INR 2.1; Prothrombin Time 25.4 Seconds (11.1-14.7)
[2023-01-09] MEDS: LEVOTHYROXINE SODIUM 150 MCG TABLET PO (05:52)
[2023-01-09] MEDS: HYDROcodone/acetaminophen (*CRX) 5-325 MG TABLET 1 TAB PO ×3 (05:52→21:21)
[2023-01-09] MEDS: dilTIAZem HCL 60 MG TABLET PO ×3 (09:41→17:54)
[2023-01-09] MEDS: buPROPion HCL SR (12 HR) 150 MG TAB PO ×2 (09:41→17:54)
[2023-01-09] MEDS: ASCORBIC ACID 500 MG TABLET PO ×2 (09:41→17:54)
[2023-01-09] MEDS: METOPROLOL SUCCINATE EXT REL 25 MG TABCR PO (09:42)
[2023-01-09] MEDS: LORATADINE 10 MG TABLET PO (09:42)
[2023-01-09] MEDS: MIRABEGRON 25 MG ER TABLET PO (09:42)
[2023-01-09] MEDS: FERROUS GLUCONATE 324 MG TABLET 648 MG BY MOUTH (09:42)
[2023-01-09] MEDS: PANTOPRAZOLE 40 MG TABLET PO ×2 (09:42→20:24)
[2023-01-09] MEDS: GABAPENTIN 100 MG CAPSULE PO (09:42)
[2023-01-09] MEDS: OPTI-GEN TAB 2 TABLET PO (09:42)
[2023-01-09] MEDS: methocarbamoL 750 MG TABLET PO ×3 (09:42→17:54)
[2023-01-09] MEDS: POTASSIUM CHLORIDE 20 MEQ ER TABLET PO ×2 (09:42→17:54)
[2023-01-09] MEDS: guaiFENesin 12 HR 600 MG TABCR 1200 MG PO ×2 (09:42→20:24)
[2023-01-09] MEDS: FUROSEMIDE INJ 40 MG/4 ML VIAL IV PUSH ×2 (09:42→17:54)
[2023-01-09] MEDS: clonazePAM (*CRX) 0.5 MG TABLET 1 MG PO (09:52)
--- NOTE | 2023-01-09 12:08 | PC.NURSE ---
Spoke with spouse Prince via telephone and gave him an update on patient.
--- NOTE | 2023-01-09 13:00 | PM.IMPN ---
Progress Note: A&P Assessment and Plan (1) Acute exacerbation of CHF (congestive heart failure): Code(s): I50.9 - Heart failure, unspecified Status: Acute Assessment and Plan: Pro BNP is elevated patient has crackles and history of chronic diastolic heart failure. IV Lasix 40 mg b.i.d. with potassium oral 20 mEq b.i.d. is ordered. Echo 01/07/2023: Normal ejection fraction severe biatrial dilation atrial fibrillation/flutter sclerotic aortic valve Stable on current medication. Continue current treatment. (2) COVID-19: Code(s): U07.1 - COVID-19 Status: Acute Assessment and Plan: Patient has hypoxia with COVID 19 diagnosis. Remains on IV dexamethasone and remdesivir. Stable on current medication. Continue current treatment. (3) Atrial fibrillation with RVR: Code(s): I48.91 - Unspecified atrial fibrillation Status: Acute Assessment and Plan: Patient was in rapid atrial fibrillation in the emergency department with concomitant hypoxia. She received IV diltiazem one time push Controlled with and Cardizem On Xarelto (4) Acute respiratory failure due to COVID-19: Code(s): U07.1 - COVID-19; J96.00 - Acute respiratory failure, unspecified whether with hypoxia or hypercapnia Status: Acute Assessment and Plan: Acute hypercapnic and hypoxic respiratory failure with concomitant CHF and COVID-19. Stable on current medication. Continue current treatment. (5) Current use of longterm anticoagulation: Code(s): Z79.01 - buttermaker helper (current) use of anticoagulants Status: Chronic Assessment and Plan: On Xarelto for VTE prophylaxis due to atrial fibrillation (6) Essential hypertension: Code(s): I10 - Essential (primary) hypertension Status: Chronic Assessment and Plan: Stable on current medication. Continue current treatment. (7) Obstructive sleep apnea on CPAP: Code(s): G47.33 - Obstructive sleep apnea (adult) (pediatric); Z99.89 - Dependence on other enabling machines and devices Status: Chronic Assessment and Plan: Continue home CPAP, follow isolation restrictions related to aerosolized room. Plan DVT prophylaxis on Xarelto Subjective Date/time seen: 01/09/23 13:00 Interval history: Patient was seen during the morning rounds today. No shortness of breath, no chest pain. No abdominal pain, no nausea, no vomiting, mood stable. Review of Systems Review of Systems: All systems reviewed & are unremarkable except as noted in HPI and below Exam Narrative: GENERAL: ill appearing, alert and oriented, not in acute distress HEENT: Pupils are equally round and briskly reactive to light. Extraocular muscles are intact. Oral mucous membranes are moist without lesions. NECK: The patient has no noted JVD. No adenopathy is appreciated. CHEST/LUNGS: Lungs are diminished bilaterally no wheezes HEART: The patient has a variable, irregular rate and irregularly irregular rhythm. No murmurs, rubs, or gallops are appreciated. Distal pulses are 2+. ABDOMEN: The patient's abdomen is soft, nontender, and nondistended. Bowel sounds are positive. No peritoneal signs. EXTREMITIES: The patient has no peripheral edema. There is no focal long bone tenderness or deformity. SKIN: The patient's skin is warm and dry, without rashes or lesions. 4 lobo noted in left groin from prior laceration. PSYCHIATRIC: The patient has normal mental status and has an appropriate affect. NEUROLOGIC: There are no gross deficits to the cranial nerves. Objective Data Vital Signs Vital Signs: Vital Signs - 24 hr 01/08/23 16:00 01/08/23 16:00 01/08/23 20:00 Temperature 36.4 C L Pulse Rate 82 69 Respiratory Rate 18 Blood Pressure 149/94 H Pulse Oximetry 95 95 Oxygen Delivery Nasal Cannula Oxygen Flow Rate 3 01/08/23 20:00 01/08/23 22:45 01/08/23 22:47 Temperature 36.4 C L Pulse Rate 81 75 78 Respir
[2023-01-09] MEDS: LOPERAMIDE HCL 2 MG CAPSULE 4 MG PO ×2 (13:05→20:24)
[2023-01-09 13:32] LABS: Alanine Aminotransferase 18 U/L (6-35); Anion Gap 5 mmol/L (8-16); Blood Urea Nitrogen 25 mg/dL (7-17); Calcium 7.9 mg/dL (8.4-10.2); Carbon Dioxide 38 mmol/L (22-30); Chloride 93 mmol/L (98-107); Estimated CRCL calculation 66 ml/min; Estimated Glomerular Filt Rate > 60; Glucose 108 mg/dL (65-110); Magnesium 1.9 mg/dL (1.6-2.3); Sodium 136 mmol/L (137-145)
[2023-01-09] MEDS: RIVAROXABAN 20 MG TABLET PO (17:55)
[2023-01-09] MEDS: MIRTAZAPINE SOLTAB 15 MG TAB.DISPER PO (20:24)
[2023-01-09] MEDS: GABAPENTIN 400 MG CAPSULE PO (20:24)
[2023-01-09] MEDS: PRAMIPEXOLE 0.25 MG TABLET PO (20:24)
[2023-01-09] MEDS: ATORVASTATIN 40 MG TABLET PO (20:24)
[2023-01-09] MEDS: FAMOTIDINE 20 MG TABLET 40 MG PO (20:24)
[2023-01-09] MEDS: traZODone HCL 50 MG TABLET 100 MG PO (20:24)
[2023-01-09] MEDS: REMDESIVIR 100 MG/NS 250 ML 100 MG/250 ML BAG 250 MG IVPB (21:22)
[2023-01-10] VITALS (10 sets, daily range): BP systolic 118–188; BP diastolic 68–109; PULSE 62–89; RESP 14–20; TEMP 36.1; O2SAT 94–99
[2023-01-10] MEDS: LEVOTHYROXINE SODIUM 150 MCG TABLET PO (05:46)
[2023-01-10 07:04] LABS: Basophils Percent Auto 0.2 % (0.2-1.2); Eosinophils Percent Auto 0.4 % (0-4.4); Hematocrit 44.9 % (37.0-47.0); Hemoglobin 13.6 g/dL (12.0-15.0); Immature Granulocyte Percent A 1.2 % (0-0.5); Lymphocytes Absolute Auto 0.63 K/mm3 (0.9-3.2); Lymphocytes Percent Auto 7.6 % (18.3-44.2); Mean Corpuscular HGB Conc 30.3 g/dl (32-36); Mean Corpuscular Hemoglobin 33.7 pg (26-34); Mean Corpuscular Volume 111.4 fl (80-100); Mean Platelet Volume 9.1 fl (7.4-10.4); Monocytes Absolute Auto 0.6 K/mm3 (0.1-0.6); Monocytes Percent Auto 7.7 % (2.6-8.5); Neutrophils Absolute Auto 6.9 K/mm3 (1.3-6.7); Neutrophils Percent Auto 82.9 % (45.5-73.1); Platelet Count Result 239 k/mm3 (150-375); Red Blood Count 4.03 M/mm3 (4.2-5.4); Red Cell Distribution Width 17.7 % (11.5-14.5); White Blood Count 8.3 K/mm3 (4.5-10.0)
[2023-01-10 07:33] LABS: Anisocytosis 1+ (NORMAL); Macrocytosis 2+ (NORMAL); Platelet Estimate Adequate (Adequate); Schistocytes None Seen (NORMAL)
[2023-01-10 07:34] LABS: Burr Cells 1+ (NORMAL)
[2023-01-10 07:35] LABS: Alanine Aminotransferase 20 U/L (6-35); Blood Urea Nitrogen 27 mg/dL (7-17); Calcium 8.2 mg/dL (8.4-10.2); Carbon Dioxide > 40 mmol/L (22-30); Chloride 93 mmol/L (98-107); Estimated CRCL calculation 75 ml/min; Estimated Glomerular Filt Rate > 60; Glucose 95 mg/dL (65-110); Potassium 4.4 mmol/L (3.4-5.0); Sodium 135 mmol/L (137-145)
[2023-01-10 07:57] LABS: INR 1.7; Prothrombin Time 21.1 Seconds (11.1-14.7)
[2023-01-10] MEDS: FERROUS GLUCONATE 324 MG TABLET 648 MG BY MOUTH (09:06)
[2023-01-10] MEDS: OPTI-GEN TAB 2 TABLET PO (09:06)
[2023-01-10] MEDS: ASCORBIC ACID 500 MG TABLET PO ×2 (09:06→18:49)
[2023-01-10] MEDS: dilTIAZem HCL 60 MG TABLET PO ×3 (09:06→18:50)
[2023-01-10] MEDS: buPROPion HCL SR (12 HR) 150 MG TAB PO ×2 (09:06→18:49)
[2023-01-10] MEDS: LOPERAMIDE HCL 2 MG CAPSULE 4 MG PO ×2 (09:07→21:52)
[2023-01-10] MEDS: methocarbamoL 750 MG TABLET PO ×3 (09:07→18:50)
[2023-01-10] MEDS: METOPROLOL SUCCINATE EXT REL 25 MG TABCR PO (09:07)
[2023-01-10] MEDS: MIRABEGRON 25 MG ER TABLET PO (09:07)
[2023-01-10] MEDS: GABAPENTIN 100 MG CAPSULE PO (09:07)
[2023-01-10] MEDS: POTASSIUM CHLORIDE 20 MEQ ER TABLET PO ×2 (09:07→18:50)
[2023-01-10] MEDS: LORATADINE 10 MG TABLET PO (09:07)
[2023-01-10] MEDS: clonazePAM (*CRX) 0.5 MG TABLET 1 MG PO (09:07)
[2023-01-10] MEDS: PANTOPRAZOLE 40 MG TABLET PO ×2 (09:07→20:52)
[2023-01-10] MEDS: FUROSEMIDE INJ 40 MG/4 ML VIAL IV PUSH (09:11)
[2023-01-10] MEDS: guaiFENesin 12 HR 600 MG TABCR 1200 MG PO ×2 (09:14→20:51)
--- NOTE | 2023-01-10 09:27 | PM.IMPN ---
Progress Note: A&P Assessment and Plan (1) Acute exacerbation of CHF (congestive heart failure): Code(s): I50.9 - Heart failure, unspecified Status: Acute Assessment and Plan: Pro BNP is elevated patient has crackles and history of chronic diastolic heart failure. IV Lasix 40 mg b.i.d. with potassium oral 20 mEq b.i.d. is ordered. Echo 01/07/2023: Normal ejection fraction severe biatrial dilation atrial fibrillation/flutter sclerotic aortic valve The left ventricular diastolic function is abnormal. Most likely patient has acute on chronic diastolic heart failure decrease lasix 20 mg bid iv from 40mg bid iv. add diamox 250 mg iv dialy, bicarbonte is high Consult bran mixer (2) COVID-19: Code(s): U07.1 - COVID-19 Status: Acute Assessment and Plan: Patient has hypoxia with COVID 19 diagnosis. Remains on IV dexamethasone and remdesivir. Stable on current medication. Continue current treatment. (3) Atrial fibrillation with RVR: Code(s): I48.91 - Unspecified atrial fibrillation Status: Acute Assessment and Plan: Patient was in rapid atrial fibrillation in the emergency department with concomitant hypoxia. She received IV diltiazem one time push Controlled with and Cardizem On Xarelto (4) Acute respiratory failure due to COVID-19: Code(s): U07.1 - COVID-19; J96.00 - Acute respiratory failure, unspecified whether with hypoxia or hypercapnia Status: Acute Assessment and Plan: Acute hypercapnic and hypoxic respiratory failure with concomitant CHF and COVID-19. Stable on current medication. Continue current treatment. 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 Continue current treatment. (7) Obstructive sleep apnea on CPAP: Code(s): G47.33 - Obstructive sleep apnea (adult) (pediatric); Z99.89 - Dependence on other enabling machines and devices Status: Chronic Assessment and Plan: Continue home CPAP, follow isolation restrictions related to aerosolized room. Plan DVT prophylaxis on Xarelto Subjective Date/time seen: 01/10/23 09:27 Interval history: I saw exam patient today, patient still has shortness breath, improves a little. Patient still has a cough with scant phlegm. Patient denies chest pain, abdomen pain, nausea vomiting diarrhea Exam Narrative: GENERAL: ill appearing, alert and oriented, not in acute distress HEENT: Pupils are equally round and briskly reactive to light. Extraocular muscles are intact. Oral mucous membranes are moist without lesions. NECK: The patient has no noted JVD. No adenopathy is appreciated. CHEST/LUNGS: Lungs are diminished bilaterally no wheezes, crackles bilateral base, HEART: The patient has a variable, irregular rate and irregularly irregular rhythm. No murmurs, rubs, or gallops are appreciated. Distal pulses are 2+. ABDOMEN: The patient's abdomen is soft, nontender, and nondistended. Bowel sounds are positive. No peritoneal signs. EXTREMITIES: 1 + edema. There is no focal long bone tenderness or deformity. SKIN: The patient's skin is warm and dry, without rashes or lesions. 4 lobo noted in left groin from prior laceration. PSYCHIATRIC: The patient has normal mental status and has an appropriate affect. NEUROLOGIC: There are no gross deficits to the cranial nerves. Objective Data Vital Signs Vital Signs: Vital Signs - 24 hr 01/09/23 09:42 01/09/23 09:41 01/09/23 12:00 Temperature Pulse Rate 80 86 Respiratory Rate Blood Pressure Pulse Oximetry 97 Oxygen Delivery Nasal Cannula Oxygen Flow Rate 2.5 Fraction of In
[2023-01-10] MEDS: HYDROcodone/acetaminophen (*CRX) 5-325 MG TABLET 1 TAB PO (13:56)
[2023-01-10] MEDS: RIVAROXABAN 20 MG TABLET PO (18:50)
[2023-01-10] MEDS: FUROSEMIDE INJ 40 MG/4 ML VIAL 20 MG IV PUSH (18:50)
[2023-01-10] MEDS: GABAPENTIN 400 MG CAPSULE PO (20:50)
[2023-01-10] MEDS: REMDESIVIR 100 MG/NS 250 ML 100 MG/250 ML BAG 250 MG IVPB (20:50)
[2023-01-10] MEDS: ATORVASTATIN 40 MG TABLET PO (20:51)
[2023-01-10] MEDS: MIRTAZAPINE SOLTAB 15 MG TAB.DISPER PO (20:51)
[2023-01-10] MEDS: FAMOTIDINE 20 MG TABLET 40 MG PO (20:52)
[2023-01-10] MEDS: PRAMIPEXOLE 0.25 MG TABLET PO (20:52)
[2023-01-10] MEDS: traZODone HCL 50 MG TABLET 100 MG PO (23:54)
[2023-01-11] VITALS (14 sets, daily range): BP systolic 122–134; BP diastolic 81–115; PULSE 66–106; RESP 14–20; TEMP 36.1–36.3; O2SAT 94–100
[2023-01-11 05:59] LABS: Basophils Percent Auto 0.1 % (0.2-1.2); Eosinophils Percent Auto 0.4 % (0-4.4); Hematocrit 43.1 % (37.0-47.0); Hemoglobin 13.2 g/dL (12.0-15.0); Immature Granulocyte Absolute 0.11 K/mm3 (0.00-0.031); Immature Granulocyte Percent A 1.3 % (0-0.5); Lymphocytes Absolute Auto 0.69 K/mm3 (0.9-3.2); Lymphocytes Percent Auto 8.3 % (18.3-44.2); Mean Corpuscular HGB Conc 30.6 g/dl (32-36); Mean Corpuscular Hemoglobin 33.3 pg (26-34); Mean Corpuscular Volume 108.8 fl (80-100); Mean Platelet Volume 9.3 fl (7.4-10.4); Monocytes Absolute Auto 0.6 K/mm3 (0.1-0.6); Monocytes Percent Auto 7.1 % (2.6-8.5); Neutrophils Absolute Auto 6.9 K/mm3 (1.3-6.7); Neutrophils Percent Auto 82.8 % (45.5-73.1); Platelet Count Result 239 k/mm3 (150-375); Red Blood Count 3.96 M/mm3 (4.2-5.4); Red Cell Distribution Width 17.4 % (11.5-14.5); White Blood Count 8.3 K/mm3 (4.5-10.0)
[2023-01-11] MEDS: LEVOTHYROXINE SODIUM 150 MCG TABLET PO (06:06)
[2023-01-11 06:08] LABS: Anion Gap 4 mmol/L (8-16); Blood Urea Nitrogen 32 mg/dL (7-17); Carbon Dioxide 39 mmol/L (22-30); Chloride 92 mmol/L (98-107); Estimated CRCL calculation 57 ml/min; Estimated Glomerular Filt Rate > 60; Glucose 97 mg/dL (65-110); Potassium 4.1 mmol/L (3.4-5.0); Sodium 135 mmol/L (137-145)
[2023-01-11] MEDS: hydrALAZINE HCL 20 MG/ML VIAL 10 MG IV PUSH (06:15)
[2023-01-11 07:14] LABS: Anisocytosis 1+ (NORMAL); Platelet Estimate Adequate (Adequate); Poikilocytosis 1+ (NORMAL); Schistocytes Rare (NORMAL)
[2023-01-11 07:15] LABS: Burr Cells 1+ (NORMAL)
--- NOTE | 2023-01-11 08:55 | PM.IMPN ---
Progress Note: A&P Assessment and Plan (1) Acute exacerbation of CHF (congestive heart failure): Code(s): I50.9 - Heart failure, unspecified Status: Acute Assessment and Plan: Pro BNP is elevated patient has crackles and history of chronic diastolic heart failure. IV Lasix 40 mg b.i.d. with potassium oral 20 mEq b.i.d. is ordered. Echo 01/07/2023: Normal ejection fraction severe biatrial dilation atrial fibrillation/flutter sclerotic aortic valve The left ventricular diastolic function is abnormal. Most likely patient has acute on chronic diastolic heart failure decrease lasix 20 mg bid iv from 40mg bid iv. add diamox 250 mg iv dialy, bicarbonte is high Consult cost coordinator (2) COVID-19: Code(s): U07.1 - COVID-19 Status: Acute Assessment and Plan: Patient has hypoxia with COVID 19 diagnosis. Remains on IV dexamethasone and remdesivir. Stable on current medication. Continue current treatment. BMI 50 .8 Possible obesity hypoventilation syndrome Consult curriculum development manager for evaluation treatment (3) Atrial fibrillation with RVR: Code(s): I48.91 - Unspecified atrial fibrillation Status: Acute Assessment and Plan: Patient was in rapid atrial fibrillation in the emergency department with concomitant hypoxia. She received IV diltiazem one time push Controlled with and Cardizem On Xarelto (4) Acute respiratory failure due to COVID-19: Code(s): U07.1 - COVID-19; J96.00 - Acute respiratory failure, unspecified whether with hypoxia or hypercapnia Status: Acute Assessment and Plan: Acute hypercapnic and hypoxic respiratory failure with concomitant CHF and COVID-19. Stable on current medication. Continue current treatment. (5) Current use of prison anticoagulation: Code(s): Z79.01 - skilled nursing (current) use of anticoagulants Status: Chronic Assessment and Plan: On Xarelto for VTE prophylaxis due to atrial fibrillation (6) Essential hypertension: Code(s): I10 - Essential (primary) hypertension Status: Chronic Assessment and Plan: Stable on current medication. Continue current treatment. (7) Obstructive sleep apnea on CPAP: Code(s): G47.33 - Obstructive sleep apnea (adult) (pediatric); Z99.89 - Dependence on other enabling machines and devices Status: Chronic Assessment and Plan: Continue home CPAP, follow isolation restrictions related to aerosolized room. Plan DVT prophylaxis on Xarelto Subjective Date/time seen: 01/11/23 08:55 Interval history: I saw exam patient today, patient still has shortness breath,and a cough. Patient denies chest pain, abdomen pain, nausea vomiting diarrhea Exam Narrative: GENERAL: ill appearing, alert and oriented, not in acute distress HEENT: Pupils are equally round and briskly reactive to light. Extraocular muscles are intact. Oral mucous membranes are moist without lesions. NECK: The patient has no noted JVD. No adenopathy is appreciated. CHEST/LUNGS: Lungs are diminished bilaterally no wheezes, crackles bilateral base, HEART: The patient has a variable, irregular rate and irregularly irregular rhythm. No murmurs, rubs, or gallops are appreciated. Distal pulses are 2+. ABDOMEN: The patient's abdomen is soft, nontender, and nondistended. Bowel sounds are positive. No peritoneal signs. EXTREMITIES: 1 + edema. There is no focal long bone tenderness or deformity. SKIN: The patient's skin is warm and dry, without rashes or lesions. 4 lobo noted in left groin from prior laceration. PSYCHIATRIC: The patient has normal mental status and has an appropriate affect. NEUROLOGIC: There are no gross deficits to the cranial nerves. Objective Data Vital Signs Vital Signs: Vital Signs - 24 hr 01/10/23 09:07 01/10/23 09:00 01/10/23 13:30 Temperature Pulse Rate 79 79 81 Respiratory Rate Blood Pressure 188/109 H 169/89 H Pulse Oximetry Oxy
[2023-01-11] MEDS: dilTIAZem HCL 60 MG TABLET PO ×3 (09:28→16:19)
[2023-01-11] MEDS: POTASSIUM CHLORIDE 20 MEQ ER TABLET PO ×2 (09:28→16:19)
[2023-01-11] MEDS: FERROUS GLUCONATE 324 MG TABLET 648 MG BY MOUTH (09:28)
[2023-01-11] MEDS: PANTOPRAZOLE 40 MG TABLET PO ×2 (09:28→20:51)
[2023-01-11] MEDS: MIRABEGRON 25 MG ER TABLET PO (09:28)
[2023-01-11] MEDS: GABAPENTIN 100 MG CAPSULE PO (09:28)
[2023-01-11] MEDS: ASCORBIC ACID 500 MG TABLET PO ×2 (09:28→16:19)
[2023-01-11] MEDS: METOPROLOL SUCCINATE EXT REL 25 MG TABCR PO (09:29)
[2023-01-11] MEDS: OPTI-GEN TAB 2 TABLET PO (09:29)
[2023-01-11] MEDS: methocarbamoL 750 MG TABLET PO ×3 (09:29→16:19)
[2023-01-11] MEDS: guaiFENesin 12 HR 600 MG TABCR 1200 MG PO ×2 (09:29→20:49)
[2023-01-11] MEDS: buPROPion HCL SR (12 HR) 150 MG TAB PO ×2 (09:30→16:19)
[2023-01-11] MEDS: FUROSEMIDE INJ 40 MG/4 ML VIAL 20 MG IV PUSH ×2 (09:31→16:19)
[2023-01-11] MEDS: LORATADINE 10 MG TABLET PO (09:31)
[2023-01-11] MEDS: acetaZOLAMIDE SODIUM FOR INJ 500 MG VIAL 250 MG IV PUSH (09:32)
[2023-01-11] MEDS: clonazePAM (*CRX) 0.5 MG TABLET 1 MG PO (09:43)
[2023-01-11] MEDS: LOPERAMIDE HCL 2 MG CAPSULE 4 MG PO ×2 (09:43→15:20)
--- NOTE | 2023-01-11 12:02 | PM.CNCAR ---
Assessment and Plan Assessment and plan (1) Acute exacerbation of CHF (congestive heart failure): Code(s): I50.9 - Heart failure, unspecified Status: Acute Assessment and Plan: Acute on chronic diastolic heart failure. Responding well to diuretics, fluid balance for this admission is 11.5 L negative currently. Continue IV furosemide 20 mg b.i.d. She is also on Diamox. Perhaps shift to p.o. furosemide tomorrow with anticipation of d/c in the next 24-48 hours daily weights strict intake and output wean oxygen as tolerated low-sodium diet CHF counseling daily BMP while diuresing (2) Persistent atrial fibrillation: Code(s): I48.19 - Other persistent atrial fibrillation Status: Acute Assessment and Plan: Persistent atrial fibrillation being managed with diltiazem and metoprolol. She is generally rate controlled and has mild RVR intermittently in the setting of COVID. Continue diltiazem 60 mg p.o. t.i.d. - this should be switched to long-acting diltiazem at discharge for dosing convenience continue metoprolol succinate 25 mg p.o. daily continue anticoagulation with Xarelto Plan No changes to current medical therapy. Cardiology will sign off. Please call with any questions. History of Present Illness History of Present Illness Consult date/time: 01/11/23 12:02 Requesting physician: Dameon Cheng MD Consult reason: congestive heart failure Reason For Visit: chf exacerbation,afib rvr,covid Narrative: Michelle Rogel is an 82 year old female with persistent atrial fibrillation, pulmonary hypertension, hypertension, dyslipidemia, and HFpEF. She follows with Dr. Field at [facility]. This is a patient who presents to the hospital with a chief complaint of shortness of breath. She had been experiencing progressive severe dyspnea for about 10 days prior to presentation to the hospital. She denies any other symptoms including chest pain, palpitations edema, orthopnea. She has been compliant with her medications and denies any significant dietary changes. She has been found to be COVID positive. The time of my visit with her she is sitting comfortably in the chair eating her lunch. She states that she is slightly more short of breath presently because she just exerted herself in order to transfer from the bed to the chair. Otherwise, she does not have any complaints at this time. Review of Systems Review of Systems: All systems reviewed & are unremarkable except as noted in HPI and below PMFSH Past Medical History Medical History Anemia Anxiety Chronic diastolic congestive heart failure Echocardiogram in October 2018 demonstrated hyperdynamic left ventricular function with an ejection fraction of 71%, moderate left atrial enlargement, and grade 2 diastolic dysfunction. Chronic pain syndrome Chronic wound infection of abdomen On long-term doxycycline b.i.d. Current use of intermediate anticoagulation On Xarelto for stroke prophylaxis given paroxysmal atrial fibrillation. Depression Essential hypertension Gastroesophageal reflux disease Hyperlipidemia Hypothyroidism (acquired) Macular degeneration Morbid obesity Obstructive sleep apnea on CPAP Overactive bladder Paroxysmal atrial fibrillation On Xarelto for stroke prophylaxis. Pneumonia due to COVID-19 virus (~03/2020) Postsurgical hypothyroidism Restless leg syndrome Shingles Thyroid cancer Status post thyroidectomy. Surgical History Surgical History H/O bilateral cataract extraction History of appendectomy (~2003) Complicated postoperative course with chronic midline abdominal wound. History of hernia repair History of orthopedic surgery ORIF right lower extremity fracture. History of ovarian cystectomy History of spinal surgery History of thyroidectomy History of total abdominal hysterectomy History of t
--- NOTE | 2023-01-11 13:09 | PM.CNPUL ---
Assessment and Plan Assessment and plan (1) COVID-19: Code(s): U07.1 - COVID-19 Status: Acute (2) Acute exacerbation of CHF (congestive heart failure): Code(s): I50.9 - Heart failure, unspecified Status: Acute (3) Atrial fibrillation with RVR: Code(s): I48.91 - Unspecified atrial fibrillation Status: Acute (4) Chronic diastolic congestive heart failure: Code(s): I50.32 - Chronic diastolic (congestive) heart failure Status: Acute (5) Acute and chronic respiratory failure with hypoxia: Code(s): J96.21 - Acute and chronic respiratory failure with hypoxia Status: Acute Assessment and Plan: This 82-year-old female with morbid obesity obstructive sleep apnea on CPAP, paroxysmal atrial fibrillation and congestive heart failure due to left ventricular diastolic dysfunction presented with shortness of breath. Diagnostic studies showed some pulmonary congestion right pleural effusion elevated BNP consistent with acute on chronic diastolic heart failure. In addition the patient tested positive for COVID and has received treatment with remdesivir and dexamethasone. She finished 4 day treatment with remdesivir and currently receiving IV dexamethasone. On physical exam she has no evidence of wheezing or lung congestion; probably residual small pleural effusion on right. Repeat chest x-ray showed clearing of lung congestion and also smaller infusion on right. Plan: I have discontinued IV dexamethasone as there is no evidence of pneumonia related to COVID 19 infection. Also discontinued Diamox. Patient has had sleep apnea and has been very compliant with auto CPAP. No previous sleep studies available. Current auto CPAP device using pressure range of 5-14. Patient also on supplemental oxygen at 4 liters/minute. Will consider [facility] prior to DC home. (6) Paroxysmal atrial fibrillation: Code(s): I48.0 - Paroxysmal atrial fibrillation Status: Chronic (7) Obstructive sleep apnea on CPAP: Code(s): G47.33 - Obstructive sleep apnea (adult) (pediatric); Z99.89 - Dependence on other enabling machines and devices Status: Chronic History of Present Illness History of Present Illness Consult date: 01/11/23 Chief complaint: chf exacerbation,afib rvr,covid Narrative: This 82-year-old female presented with several day history of progressively increasing shortness of breath. The patient has multiple problems including history of congestive heart failure, obstructive sleep apnea on CPAP, hyperlipidemia, hypertension atrial fibrillation chronically on anticoagulation, anxiety, morbid obesity. Patient reportedly was recovering from hip surgery. She started to have more shortness of breath especially with activities. She had no other respiratory symptoms such as cough, sputum production, wheezing, fever, chills, hemoptysis or lower extremity edema. Upon evaluation in the emergency room she was found to be COVID positive. Chest x-ray showed questionable lung congestion also small right pleural effusion. ABGs showed probably combined metabolic alkalosis and respiratory acidosis. PH was 7.45 and pCO2 approximately 58 mmHg. Patient has been treated with diuretics and also CPAP support using CPAP device. Also she has received treatment for COVID pneumonia with remdesivir for 4 days and dexamethasone IV foe 6 days. Also on Diamox IV. Her respiratory status has significantly improved. She spends time out of bed in chair. She uses own CPAP device every night. She has been on treatment for sleep disordered breathing for many years. She has no signs suggestive of uncontrolled sleep disordered breathing. Review of Systems Review of Systems: All systems reviewed & are unremarkable except as noted in HPI and below (HPI and below) [facility] Past Medical History Medical History Anemia Anxiety Chronic diastolic congestive hea
[2023-01-11] MEDS: HYDROcodone/acetaminophen (*CRX) 5-325 MG TABLET 1 TAB PO (15:22)
[2023-01-11] MEDS: RIVAROXABAN 20 MG TABLET PO (16:19)
[2023-01-11] MEDS: FAMOTIDINE 20 MG TABLET 40 MG PO (20:50)
[2023-01-11] MEDS: GABAPENTIN 400 MG CAPSULE PO (20:50)
[2023-01-11] MEDS: PRAMIPEXOLE 0.25 MG TABLET PO (20:50)
[2023-01-11] MEDS: MIRTAZAPINE SOLTAB 15 MG TAB.DISPER PO (20:51)
[2023-01-11] MEDS: traZODone HCL 50 MG TABLET 100 MG PO (20:51)
[2023-01-11] MEDS: ATORVASTATIN 40 MG TABLET PO (20:51)
[2023-01-12] VITALS (13 sets, daily range): BP systolic 107–112; BP diastolic 65–80; PULSE 63–96; RESP 14–21; TEMP 36.1–36.9; O2SAT 94–100
[2023-01-12] MEDS: LEVOTHYROXINE SODIUM 150 MCG TABLET PO (07:20)
--- NOTE | 2023-01-12 09:07 | PM.IMPN ---
Progress Note: A&P Assessment and Plan (1) Acute exacerbation of CHF (congestive heart failure): Code(s): I50.9 - Heart failure, unspecified Status: Acute Assessment and Plan: Pro BNP is elevated patient has crackles and history of chronic diastolic heart failure. IV Lasix 40 mg b.i.d. with potassium oral 20 mEq b.i.d. is ordered. Echo 01/07/2023: Normal ejection fraction severe biatrial dilation atrial fibrillation/flutter sclerotic aortic valve The left ventricular diastolic function is abnormal. Most likely patient has acute on chronic diastolic heart failure decrease lasix 20 mg bid iv from 40mg bid iv. added diamox 250 mg iv dialy, bicarbonte was high, now improves dc diamox per making department preparer Consult urology nurse (2) COVID-19: Code(s): U07.1 - COVID-19 Status: Acute Assessment and Plan: Patient has hypoxia with COVID 19 diagnosis. received IV dexamethasone and remdesivir. BMI 50 .8 Possible obesity hypoventilation syndrome Consult making department preparer for evaluation treatment (3) Atrial fibrillation with RVR: Code(s): I48.91 - Unspecified atrial fibrillation Status: Acute Assessment and Plan: Patient was in rapid atrial fibrillation in the emergency department with concomitant hypoxia. She received IV diltiazem one time push Controlled with and Cardizem On Xarelto (4) Acute respiratory failure due to COVID-19: Code(s): U07.1 - COVID-19; J96.00 - Acute respiratory failure, unspecified whether with hypoxia or hypercapnia Status: Acute Assessment and Plan: Acute hypercapnic and hypoxic respiratory failure with concomitant CHF and COVID-19. Stable on current medication. dc dexamethasone per making department preparer request (5) Current use of senior care anticoagulation: Code(s): Z79.01 - USP (current) use of anticoagulants Status: Chronic Assessment and Plan: On Xarelto for VTE prophylaxis due to atrial fibrillation (6) Essential hypertension: Code(s): I10 - Essential (primary) hypertension Status: Chronic Assessment and Plan: Stable on current medication. Continue current treatment. (7) Obstructive sleep apnea on CPAP: Code(s): G47.33 - Obstructive sleep apnea (adult) (pediatric); Z99.89 - Dependence on other enabling machines and devices Status: Chronic Assessment and Plan: Continue home CPAP, follow isolation restrictions related to aerosolized room. Plan DVT prophylaxis on Xarelto Subjective Date/time seen: 01/12/23 09:07 Interval history: I saw exam patient today, patient still has shortness breath,and cough. Patient denies chest pain, abdomen pain, nausea vomiting diarrhea Exam Narrative: GENERAL: ill appearing, alert and oriented, not in acute distress HEENT: Pupils are equally round and briskly reactive to light. Extraocular muscles are intact. Oral mucous membranes are moist without lesions. NECK: The patient has no noted JVD. No adenopathy is appreciated. CHEST/LUNGS: Lungs are diminished bilaterally no wheezes, stilll has some crackles bilateral base,improving HEART: The patient has a variable, irregular rate and irregularly irregular rhythm. No murmurs, rubs, or gallops are appreciated. Distal pulses are 2+. ABDOMEN: The patient's abdomen is soft, nontender, and nondistended. Bowel sounds are positive. No peritoneal signs. EXTREMITIES: 1 + edema. There is no focal long bone tenderness or deformity. SKIN: The patient's skin is warm and dry, without rashes or lesions. 4 lobo noted in left groin from prior laceration. PSYCHIATRIC: The patient has normal mental status and has an appropriate affect. NEUROLOGIC: There are no gross deficits to the cranial nerves. Objective Data Vital Signs Vital Signs: Vital Signs - 24 hr 01/11/23 09:29 01/11/23 09:31 01/11/23 12:05 Temperature Pulse Rate 80 106 H Respiratory Rate 16 Blood Pressure Pulse Oxim
[2023-01-12 09:31] LABS: Basophils Percent Auto 0.1 % (0.2-1.2); Eosinophils Absolute Auto 0.1 K/mm3 (0-0.3); Eosinophils Percent Auto 0.6 % (0-4.4); Hematocrit 43.5 % (37.0-47.0); Hemoglobin 13.8 g/dL (12.0-15.0); Immature Granulocyte Absolute 0.14 K/mm3 (0.00-0.031); Immature Granulocyte Percent A 1.4 % (0-0.5); Lymphocytes Absolute Auto 0.66 K/mm3 (0.9-3.2); Lymphocytes Percent Auto 6.7 % (18.3-44.2); Mean Corpuscular HGB Conc 31.7 g/dl (32-36); Mean Corpuscular Hemoglobin 33.6 pg (26-34); Mean Corpuscular Volume 105.8 fl (80-100); Mean Platelet Volume 9.5 fl (7.4-10.4); Monocytes Absolute Auto 0.7 K/mm3 (0.1-0.6); Monocytes Percent Auto 6.8 % (2.6-8.5); Neutrophils Absolute Auto 8.3 K/mm3 (1.3-6.7); Neutrophils Percent Auto 84.4 % (45.5-73.1); Platelet Count Result 256 k/mm3 (150-375); Red Blood Count 4.11 M/mm3 (4.2-5.4); Red Cell Distribution Width 17.4 % (11.5-14.5); White Blood Count 9.9 K/mm3 (4.5-10.0)
[2023-01-12] MEDS: PANTOPRAZOLE 40 MG TABLET PO ×2 (09:36→19:57)
[2023-01-12] MEDS: dilTIAZem HCL 60 MG TABLET PO ×3 (09:36→16:58)
[2023-01-12] MEDS: GABAPENTIN 100 MG CAPSULE PO (09:36)
[2023-01-12] MEDS: POTASSIUM CHLORIDE 20 MEQ ER TABLET PO ×2 (09:36→16:58)
[2023-01-12] MEDS: LORATADINE 10 MG TABLET PO (09:36)
[2023-01-12] MEDS: guaiFENesin 12 HR 600 MG TABCR 1200 MG PO ×2 (09:36→19:58)
[2023-01-12] MEDS: MIRABEGRON 25 MG ER TABLET PO (09:36)
[2023-01-12] MEDS: ASCORBIC ACID 500 MG TABLET PO ×2 (09:36→16:58)
[2023-01-12] MEDS: FUROSEMIDE INJ 40 MG/4 ML VIAL 20 MG IV PUSH ×2 (09:36→16:58)
[2023-01-12] MEDS: buPROPion HCL SR (12 HR) 150 MG TAB PO ×2 (09:37→16:58)
[2023-01-12] MEDS: methocarbamoL 750 MG TABLET PO ×3 (09:37→16:58)
[2023-01-12] MEDS: LOPERAMIDE HCL 2 MG CAPSULE 4 MG PO (09:37)
[2023-01-12] MEDS: METOPROLOL SUCCINATE EXT REL 25 MG TABCR PO (09:37)
[2023-01-12] MEDS: OPTI-GEN TAB 2 TABLET PO (09:38)
[2023-01-12 09:47] LABS: Anion Gap 4 mmol/L (8-16); Blood Urea Nitrogen 31 mg/dL (7-17); Calcium 8.5 mg/dL (8.4-10.2); Carbon Dioxide 33 mmol/L (22-30); Chloride 96 mmol/L (98-107); Estimated CRCL calculation 51 ml/min; Estimated Glomerular Filt Rate 60; Glucose 83 mg/dL (65-110); Potassium 4.5 mmol/L (3.4-5.0); Sodium 133 mmol/L (137-145)
[2023-01-12 11:52] LABS: Anisocytosis 1+ (NORMAL); Platelet Estimate Adequate (Adequate); Schistocytes None Seen (NORMAL)
[2023-01-12] MEDS: FERROUS GLUCONATE 324 MG TABLET 648 MG BY MOUTH (12:42)
[2023-01-12] MEDS: HYDROcodone/acetaminophen (*CRX) 5-325 MG TABLET 1 TAB PO (12:50)
[2023-01-12] MEDS: RIVAROXABAN 20 MG TABLET PO (16:58)
[2023-01-12] MEDS: ATORVASTATIN 40 MG TABLET PO (19:57)
[2023-01-12] MEDS: MIRTAZAPINE SOLTAB 15 MG TAB.DISPER PO (19:57)
[2023-01-12] MEDS: GABAPENTIN 400 MG CAPSULE PO (19:57)
[2023-01-12] MEDS: FAMOTIDINE 20 MG TABLET 40 MG PO (19:58)
[2023-01-12] MEDS: traZODone HCL 50 MG TABLET 100 MG PO (20:00)
[2023-01-12] MEDS: PRAMIPEXOLE 0.25 MG TABLET PO (20:01)
--- NOTE | 2023-01-12 20:51 | PM.PNPUL ---
Progress Note: A&P Assessment and Plan (1) COVID-19: Code(s): U07.1 - COVID-19 Status: Acute (2) Acute and chronic respiratory failure with hypoxia: Code(s): J96.21 - Acute and chronic respiratory failure with hypoxia Status: Acute Assessment and Plan: 82-year-old female with morbid obesity obstructive sleep apnea on CPAP, paroxysmal atrial fibrillation and congestive heart failure due to left ventricular diastolic dysfunction presented with shortness of breath.? Diagnostic studies showed some pulmonary congestion right pleural effusion elevated BNP consistent with acute on chronic diastolic heart failure.? In addition the patient tested positive for COVID and has received treatment with remdesivir and dexamethasone.? She finished 4 day treatment with remdesivir and currently receiving IV dexamethasone.? On physical exam she has no evidence of wheezing or lung congestion;? probably residual small pleural effusion on right.? Repeat chest x-ray showed clearing of lung congestion and also smaller infusion on right. She is off IV dexamethasone as there is no evidence of pneumonia related to COVID 19 infection.? Also off Diamox.? (3) CHARLES (obstructive sleep apnea): Code(s): G47.33 - Obstructive sleep apnea (adult) (pediatric) Status: Acute Assessment and Plan: Patient has had sleep apnea and has been very compliant with auto CPAP.? No previous sleep studies available.? Current APAP using pressure range of 5-14.? Patient also on supplemental oxygen at 4 liters/minute.? Most CHF/afib patients are not best managed by APAP. She does not have old studies in out system. She may not need an [facility] while she is here. She is sick, [facility] is good for initial screening however she already has a diagnosis, a nd she is sick so the O2 requirement will be higher now with COVID-19 and CHF. Will discuss with her about follow up after discharge. Subjective Date/time seen: 01/12/23 20:51 Interval history: Hospital follow up : 82-year-old female with morbid obesity obstructive sleep apnea on CPAP, paroxysmal atrial fibrillation and congestive heart failure due to left ventricular diastolic dysfunction presented with shortness of breath.? Diagnostic studies showed some pulmonary congestion right pleural effusion elevated BNP consistent with acute on chronic diastolic heart failure.? In addition the patient tested positive for COVID and has received treatment with remdesivir and dexamethasone.? She finished 4 day treatment with remdesivir and currently receiving IV dexamethasone.? On physical exam she has no evidence of wheezing or lung congestion;? probably residual small pleural effusion on right.? Repeat chest x-ray showed clearing of lung congestion and also smaller infusion on right. ?Plan:? I have discontinued IV dexamethasone as there is no evidence of pneumonia related to COVID 19 infection.? Also discontinued Diamox.? Patient has had sleep apnea and has been very compliant with auto CPAP.? No previous sleep studies available.? Current auto CPAP device using pressure range of 5-14.? Patient also on supplemental oxygen at 4 liters/minute.? Will consider [facility] prior to DC home. Objective Data Vital Signs Vital Signs: Vital Signs - 24 hr 01/11/23 21:59 01/11/23 22:55 01/12/23 00:00 Temperature 36.3 C L Pulse Rate 66 66 73 Respiratory Rate 20 14 Blood Pressure 122/82 Pulse Oximetry 98 95 Oxygen Delivery Autopap 01/12/23 04:06 01/12/23 03:00 01/12/23 06:00 Temperature 36.1 C L Pulse Rate 78 75 78 Respiratory Rate 14 21 H Blood Pressure 107/65 Pulse Oximetry 94 100 Oxygen Delivery Autopap 01/12/23 09:37 01/12/23 08:00 01/12/23 12:00 Temperature Pulse Rate 87 95 80 Respiratory Rate Blood Pressure Pulse Oximetry Oxygen Delivery 01/12/23 14:00 01/12/23 16:00 01/12/23 19:52 Temperature 36.9 C 36.7 C Pulse Rate 76 63 96 Respiratory Rate 18 18 Blood Pre
[2023-01-13] VITALS (12 sets, daily range): BP systolic 113–127; BP diastolic 61–86; PULSE 67–85; RESP 16–18; TEMP 36.4–37.1; O2SAT 95–99
[2023-01-13] MEDS: LEVOTHYROXINE SODIUM 150 MCG TABLET PO (05:25)
[2023-01-13] MEDS: POTASSIUM CHLORIDE 20 MEQ ER TABLET PO ×2 (09:34→16:48)
[2023-01-13] MEDS: FERROUS GLUCONATE 324 MG TABLET 648 MG BY MOUTH (09:34)
[2023-01-13] MEDS: dilTIAZem HCL 60 MG TABLET PO ×3 (09:34→16:48)
[2023-01-13] MEDS: LORATADINE 10 MG TABLET PO (09:34)
[2023-01-13] MEDS: guaiFENesin 12 HR 600 MG TABCR 1200 MG PO ×2 (09:34→20:47)
[2023-01-13] MEDS: clonazePAM (*CRX) 0.5 MG TABLET 1 MG PO (09:34)
[2023-01-13] MEDS: GABAPENTIN 100 MG CAPSULE PO (09:34)
[2023-01-13] MEDS: MIRABEGRON 25 MG ER TABLET PO (09:34)
[2023-01-13] MEDS: METOPROLOL SUCCINATE EXT REL 25 MG TABCR PO (09:34)
[2023-01-13] MEDS: OPTI-GEN TAB 2 TABLET PO (09:34)
[2023-01-13] MEDS: buPROPion HCL SR (12 HR) 150 MG TAB PO ×2 (09:35→16:48)
[2023-01-13] MEDS: FUROSEMIDE INJ 40 MG/4 ML VIAL 20 MG IV PUSH ×2 (09:35→16:48)
[2023-01-13] MEDS: PANTOPRAZOLE 40 MG TABLET PO ×2 (09:35→20:47)
[2023-01-13] MEDS: ASCORBIC ACID 500 MG TABLET PO ×2 (09:35→16:48)
[2023-01-13] MEDS: methocarbamoL 750 MG TABLET PO ×3 (09:35→16:48)
[2023-01-13 10:56] LABS: Basophils Percent Auto 0.2 % (0.2-1.2); Eosinophils Absolute Auto 0.2 K/mm3 (0-0.3); Eosinophils Percent Auto 2.2 % (0-4.4); Hematocrit 43.8 % (37.0-47.0); Hemoglobin 13.8 g/dL (12.0-15.0); Immature Granulocyte Percent A 1.8 % (0-0.5); Lymphocytes Absolute Auto 1.01 K/mm3 (0.9-3.2); Lymphocytes Percent Auto 9.3 % (18.3-44.2); Mean Corpuscular HGB Conc 31.5 g/dl (32-36); Mean Corpuscular Hemoglobin 33.6 pg (26-34); Mean Corpuscular Volume 106.6 fl (80-100); Mean Platelet Volume 9.2 fl (7.4-10.4); Monocytes Absolute Auto 0.8 K/mm3 (0.1-0.6); Monocytes Percent Auto 7.3 % (2.6-8.5); Neutrophils Absolute Auto 8.6 K/mm3 (1.3-6.7); Neutrophils Percent Auto 79.2 % (45.5-73.1); Platelet Count Result 228 k/mm3 (150-375); Red Blood Count 4.11 M/mm3 (4.2-5.4); Red Cell Distribution Width 17.5 % (11.5-14.5); White Blood Count 10.9 K/mm3 (4.5-10.0)
[2023-01-13 11:20] LABS: Anion Gap 7 mmol/L (8-16); Blood Urea Nitrogen 36 mg/dL (7-17); Calcium 8.3 mg/dL (8.4-10.2); Carbon Dioxide 28 mmol/L (22-30); Chloride 100 mmol/L (98-107); Estimated CRCL calculation 51 ml/min; Estimated Glomerular Filt Rate 60; Glucose 87 mg/dL (65-110); Sodium 135 mmol/L (137-145)
[2023-01-13 11:23] LABS: Anisocytosis 1+ (NORMAL); Platelet Estimate Adequate (Adequate); Schistocytes None Seen (NORMAL)
[2023-01-13] MEDS: HYDROcodone/acetaminophen (*CRX) 5-325 MG TABLET 1 TAB PO ×3 (12:29→22:53)
--- NOTE | 2023-01-13 16:19 | PM.IMPN ---
Progress Note: A&P Assessment and Plan (1) Acute exacerbation of CHF (congestive heart failure): Code(s): I50.9 - Heart failure, unspecified Status: Acute Assessment and Plan: Pro BNP is elevated patient has crackles and history of chronic diastolic heart failure. IV Lasix 40 mg b.i.d. with potassium oral 20 mEq b.i.d. is ordered. Echo 01/07/2023: Normal ejection fraction severe biatrial dilation atrial fibrillation/flutter sclerotic aortic valve The left ventricular diastolic function is abnormal. Most likely patient has acute on chronic diastolic heart failure decrease lasix 20 mg bid iv from 40mg bid iv. added diamox 250 mg iv dialy, bicarbonte was high, now improves dc diamox per commercial lines account manager Consult news operations manager (2) COVID-19: Code(s): U07.1 - COVID-19 Status: Acute Assessment and Plan: Patient has hypoxia with COVID 19 diagnosis. received IV dexamethasone and remdesivir. BMI 50 .8 Possible obesity hypoventilation syndrome Consult commercial lines account manager for evaluation treatment (3) Atrial fibrillation with RVR: Code(s): I48.91 - Unspecified atrial fibrillation Status: Acute Assessment and Plan: Patient was in rapid atrial fibrillation in the emergency department with concomitant hypoxia. She received IV diltiazem one time push Controlled with and Cardizem On Xarelto (4) Acute respiratory failure due to COVID-19: Code(s): U07.1 - COVID-19; J96.00 - Acute respiratory failure, unspecified whether with hypoxia or hypercapnia Status: Acute Assessment and Plan: Acute hypercapnic and hypoxic respiratory failure with concomitant CHF and COVID-19. Stable on current medication. dc dexamethasone per commercial lines account manager request (5) Current use of detention anticoagulation: Code(s): Z79.01 - skilled nursing (current) use of anticoagulants Status: Chronic Assessment and Plan: On Xarelto for VTE prophylaxis due to atrial fibrillation (6) Essential hypertension: Code(s): I10 - Essential (primary) hypertension Status: Chronic Assessment and Plan: Stable on current medication. Continue current treatment. (7) Obstructive sleep apnea on CPAP: Code(s): G47.33 - Obstructive sleep apnea (adult) (pediatric); Z99.89 - Dependence on other enabling machines and devices Status: Chronic Assessment and Plan: Continue home CPAP, follow isolation restrictions related to aerosolized room. Plan DVT prophylaxis on Xarelto Subjective Date/time seen: 01/13/23 16:19 Interval history: I saw exam patient today, patient feels better, shortness breast is improving, still has some cough. Patient denies chest pain abdominal pain, nausea vomiting diarrhea Exam Narrative: GENERAL: ill appearing, alert and oriented, not in acute distress HEENT: Pupils are equally round and briskly reactive to light. Extraocular muscles are intact. Oral mucous membranes are moist without lesions. NECK: The patient has no noted JVD. No adenopathy is appreciated. CHEST/LUNGS: Lungs are diminished bilaterally no wheezes, stilll has some crackles bilateral base,improving HEART: The patient has a variable, irregular rate and irregularly irregular rhythm. No murmurs, rubs, or gallops are appreciated. Distal pulses are 2+. ABDOMEN: The patient's abdomen is soft, nontender, and nondistended. Bowel sounds are positive. No peritoneal signs. EXTREMITIES: 1 + edema. There is no focal long bone tenderness or deformity. SKIN: The patient's skin is warm and dry, without rashes or lesions. 4 lobo noted in left groin from prior laceration. PSYCHIATRIC: The patient has normal mental status and has an appropriate affect. NEUROLOGIC: There are no gross deficits to the cranial nerves. Objective Data Vital Signs Vital Signs: Vital Signs - 24 hr 01/12/23 19:52 01/12/23 21:35 01/12/23 21:30 Temperature 98.1 F Pulse Rate 96 73 Respiratory Rate 18
[2023-01-13] MEDS: RIVAROXABAN 20 MG TABLET PO (16:51)
[2023-01-13] MEDS: ATORVASTATIN 40 MG TABLET PO (20:47)
[2023-01-13] MEDS: FAMOTIDINE 20 MG TABLET 40 MG PO (20:47)
[2023-01-13] MEDS: MIRTAZAPINE SOLTAB 15 MG TAB.DISPER PO (20:47)
[2023-01-13] MEDS: GABAPENTIN 400 MG CAPSULE PO (20:47)
[2023-01-13] MEDS: PRAMIPEXOLE 0.25 MG TABLET PO (20:47)
[2023-01-13] MEDS: traZODone HCL 50 MG TABLET 100 MG PO (20:59)
[2023-01-13] MEDS: oxyCODONE HCL (*CRX) 5 MG TAB IR PO (20:59)
[2023-01-14] VITALS (14 sets, daily range): BP systolic 109–134; BP diastolic 56–77; PULSE 62–95; RESP 13–18; TEMP 36.2–37; O2SAT 96–100
[2023-01-14] MEDS: LEVOTHYROXINE SODIUM 150 MCG TABLET PO (05:42)
[2023-01-14 06:14] LABS: Basophils Percent Auto 0.4 % (0.2-1.2); Eosinophils Absolute Auto 0.3 K/mm3 (0-0.3); Hematocrit 43.8 % (37.0-47.0); Hemoglobin 13.4 g/dL (12.0-15.0); Immature Granulocyte Absolute 0.19 K/mm3 (0.00-0.031); Immature Granulocyte Percent A 2.3 % (0-0.5); Lymphocytes Absolute Auto 0.94 K/mm3 (0.9-3.2); Lymphocytes Percent Auto 11.1 % (18.3-44.2); Mean Corpuscular HGB Conc 30.6 g/dl (32-36); Mean Corpuscular Hemoglobin 33.4 pg (26-34); Mean Corpuscular Volume 109.2 fl (80-100); Mean Platelet Volume 9.3 fl (7.4-10.4); Monocytes Absolute Auto 0.7 K/mm3 (0.1-0.6); Monocytes Percent Auto 8.8 % (2.6-8.5); Neutrophils Absolute Auto 6.2 K/mm3 (1.3-6.7); Neutrophils Percent Auto 73.4 % (45.5-73.1); Platelet Count Result 207 k/mm3 (150-375); Red Blood Count 4.01 M/mm3 (4.2-5.4); Red Cell Distribution Width 17.4 % (11.5-14.5); White Blood Count 8.4 K/mm3 (4.5-10.0)
[2023-01-14 06:23] LABS: Anion Gap 4 mmol/L (8-16); Blood Urea Nitrogen 38 mg/dL (7-17); Calcium 8.2 mg/dL (8.4-10.2); Carbon Dioxide 31 mmol/L (22-30); Chloride 97 mmol/L (98-107); Estimated CRCL calculation 47 ml/min; Estimated Glomerular Filt Rate 53; Glucose 87 mg/dL (65-110); Potassium 5.3 mmol/L (3.4-5.0); Sodium 132 mmol/L (137-145)
[2023-01-14 06:50] LABS: Anisocytosis 1+ (NORMAL); Platelet Estimate Adequate (Adequate); Schistocytes None Seen (NORMAL)
[2023-01-14] MEDS: HYDROcodone/acetaminophen (*CRX) 5-325 MG TABLET 1 TAB PO ×3 (09:16→20:51)
[2023-01-14] MEDS: methocarbamoL 750 MG TABLET PO ×3 (09:17→17:24)
[2023-01-14] MEDS: PANTOPRAZOLE 40 MG TABLET PO ×2 (09:18→20:50)
[2023-01-14] MEDS: MIRABEGRON 25 MG ER TABLET PO (09:18)
[2023-01-14] MEDS: METOPROLOL SUCCINATE EXT REL 25 MG TABCR PO (09:18)
[2023-01-14] MEDS: LORATADINE 10 MG TABLET PO (09:18)
[2023-01-14] MEDS: GABAPENTIN 100 MG CAPSULE PO (09:19)
[2023-01-14] MEDS: dilTIAZem HCL 60 MG TABLET PO ×3 (09:19→17:24)
[2023-01-14] MEDS: buPROPion HCL SR (12 HR) 150 MG TAB PO ×2 (09:19→17:24)
[2023-01-14] MEDS: OPTI-GEN TAB 2 TABLET PO (09:19)
[2023-01-14] MEDS: FERROUS GLUCONATE 324 MG TABLET 648 MG BY MOUTH (09:19)
--- NOTE | 2023-01-14 09:19 | PM.IMPN ---
Progress Note: A&P Assessment and Plan (1) Acute exacerbation of CHF (congestive heart failure): Code(s): I50.9 - Heart failure, unspecified Status: Acute Assessment and Plan: Pro BNP is elevated patient has crackles and history of chronic diastolic heart failure. IV Lasix 40 mg b.i.d. with potassium oral 20 mEq b.i.d. is ordered. Echo 01/07/2023: Normal ejection fraction severe biatrial dilation atrial fibrillation/flutter sclerotic aortic valve The left ventricular diastolic function is abnormal. Most likely patient has acute on chronic diastolic heart failure decrease lasix 20 mg bid iv from 40mg bid iv. added diamox 250 mg iv dialy, bicarbonte was high, now improves dc diamox per plastic extruding machine operator Consult deputy controller (2) COVID-19: Code(s): U07.1 - COVID-19 Status: Acute Assessment and Plan: Patient has hypoxia with COVID 19 diagnosis. received IV dexamethasone and remdesivir. BMI 50 .8 Possible obesity hypoventilation syndrome Consult plastic extruding machine operator for evaluation treatment (3) Atrial fibrillation with RVR: Code(s): I48.91 - Unspecified atrial fibrillation Status: Acute Assessment and Plan: Patient was in rapid atrial fibrillation in the emergency department with concomitant hypoxia. She received IV diltiazem one time push Controlled with and Cardizem On Xarelto (4) Acute respiratory failure due to COVID-19: Code(s): U07.1 - COVID-19; J96.00 - Acute respiratory failure, unspecified whether with hypoxia or hypercapnia Status: Acute Assessment and Plan: Acute hypercapnic and hypoxic respiratory failure with concomitant CHF and COVID-19. Stable on current medication. dc dexamethasone per plastic extruding machine operator request (5) Current use of custodial anticoagulation: Code(s): Z79.01 - USP (current) use of anticoagulants Status: Chronic Assessment and Plan: On Xarelto for VTE prophylaxis due to atrial fibrillation (6) Essential hypertension: Code(s): I10 - Essential (primary) hypertension Status: Chronic Assessment and Plan: Stable on current medication. Continue current treatment. (7) Obstructive sleep apnea on CPAP: Code(s): G47.33 - Obstructive sleep apnea (adult) (pediatric); Z99.89 - Dependence on other enabling machines and devices Status: Chronic Assessment and Plan: Continue home CPAP, follow isolation restrictions related to aerosolized room. Plan DVT prophylaxis on Xarelto Subjective Date/time seen: 01/14/23 09:19 Interval history: I saw exam patient today, patient feels better, shortness breast is improving, still has some cough. Patient denies chest pain abdominal pain, nausea vomiting diarrhea Exam Narrative: GENERAL: ill appearing, alert and oriented, not in acute distress HEENT: Pupils are equally round and briskly reactive to light. Extraocular muscles are intact. Oral mucous membranes are moist without lesions. NECK: The patient has no noted JVD. No adenopathy is appreciated. CHEST/LUNGS: Lungs are diminished bilaterally no wheezes, stilll has some crackles bilateral base,improving HEART: The patient has a variable, irregular rate and irregularly irregular rhythm. No murmurs, rubs, or gallops are appreciated. Distal pulses are 2+. ABDOMEN: The patient's abdomen is soft, nontender, and nondistended. Bowel sounds are positive. No peritoneal signs. EXTREMITIES: 1 + edema. There is no focal long bone tenderness or deformity. SKIN: The patient's skin is warm and dry, without rashes or lesions. 4 lobo noted in left groin from prior laceration. PSYCHIATRIC: The patient has normal mental status and has an appropriate affect. NEUROLOGIC: There are no gross deficits to the cranial nerves. Objective Data Vital Signs Vital Signs: Vital Signs - 24 hr 01/13/23 09:34 01/13/23 12:00 01/13/23 16:00 Temperature Pulse Rate 85 81 67 Respiratory Rate Blo
[2023-01-14] MEDS: guaiFENesin 12 HR 600 MG TABCR 1200 MG PO (09:20)
[2023-01-14] MEDS: FUROSEMIDE INJ 40 MG/4 ML VIAL 20 MG IV PUSH ×2 (09:20→17:24)
[2023-01-14] MEDS: POTASSIUM CHLORIDE 20 MEQ ER TABLET PO ×2 (09:20→17:24)
[2023-01-14] MEDS: ASCORBIC ACID 500 MG TABLET PO ×2 (09:20→17:24)
--- NOTE | 2023-01-14 10:20 | PM.PNPUL ---
Progress Note: A&P Assessment and Plan (1) CHARLES (obstructive sleep apnea): Code(s): G47.33 - Obstructive sleep apnea (adult) (pediatric) Status: Acute Assessment and Plan: 01/12 Patient has had sleep apnea and has been very compliant with auto CPAP.? No previous sleep studies available.? Current APAP using pressure range of 5-14.? Patient also on supplemental oxygen at 4 liters/minute.? Most CHF/afib patients are not best managed by APAP. She does not have old studies in out system. She may not need an [facility] while she is here. She is sick, [facility] is good for initial screening however she already has a diagnosis, a nd she is sick so the O2 requirement will be higher now with COVID-19 and CHF. Will discuss with her about follow up after discharge. 01/14 tonight I will continue hospital auto PAP 5-14 with 4 L bleed in and and get an ABG prior to removal of the machine and an overnight oximetry on 4 L to assess oxygenation. I will send a TSH and free T4. I will attempt to obtain recent download from [facility] on 01/15/2023. Discussed with Dr. Salomon, will follow with you. (2) Acute and chronic respiratory failure with hypoxia: Code(s): J96.21 - Acute and chronic respiratory failure with hypoxia Status: Acute Assessment and Plan: 82-year-old female with morbid obesity obstructive sleep apnea on CPAP, paroxysmal atrial fibrillation and congestive heart failure due to left ventricular diastolic dysfunction presented with shortness of breath.? Diagnostic studies showed some pulmonary congestion right pleural effusion elevated BNP consistent with acute on chronic diastolic heart failure.? In addition the patient tested positive for COVID and has received treatment with remdesivir and dexamethasone.? She finished 4 day treatment with remdesivir and currently receiving IV dexamethasone.? On physical exam she has no evidence of wheezing or lung congestion;? probably residual small pleural effusion on right.? Repeat chest x-ray showed clearing of lung congestion and also smaller infusion on right. Patient tells me she normally wears 3 L at home and 4 at night with her home CPAP machine through [facility]. 01/06/2023 blood gas 7.45/58/78 on 4 L nasal cannula. 01/14 patient has improved with treatment for COVID pneumonia and fluid overload. Patient tells me she normally wears 3 L at home and 4 at night with her home CPAP machine through [facility]. Currently she is on 3 L nasal cannula saturations 100%. Goal saturations 90-94%. Wean FiO2 as tolerated. Patient will ultimately return to [facility] for continued rehabilitation. (3) COVID-19: Code(s): U07.1 - COVID-19 Status: Acute Assessment and Plan: Patient has hypoxia with COVID 19 diagnosis. 01/07/23 received IV dexamethasone and remdesivir. Now discontinued on 01/11/23 (4) Acute exacerbation of CHF (congestive heart failure): Code(s): I50.9 - Heart failure, unspecified Status: Acute Assessment and Plan: 01/14 diuresis per hospitalist and Cardiology teams. She is on Lasix 20 IV b.i.d.. Creatinine is 1.0. Cumulative diuresis since admission is 13.4 L. Her weight has decreased from 124.6 on admission to 117.8 today. Subjective Date/time seen: 01/14/23 10:20 Interval history: 01/11/23: new consult This 82-year-old female presented with several day history of progressively increasing shortness of breath.? The patient has multiple problems including history of congestive heart failure, obstructive sleep apnea on CPAP, hyperlipidemia, hypertension atrial fibrillation chronically on anticoagulation, anxiety, morbid obesity.? Patient reportedly was recovering from hip surgery.? She started to have more shortness of breath especially with activities.? She had no other respiratory symptoms such as cough, sputum production, wheezing, fever, chills, hemoptysis or lower extremity edema.? Upon evaluati
[2023-01-14 11:16] LABS: Free T4 Free Thyroxine 1.06 ng/mL (0.78-2.19)
[2023-01-14] MEDS: RIVAROXABAN 20 MG TABLET PO (17:24)
[2023-01-14] MEDS: ATORVASTATIN 40 MG TABLET PO (20:50)
[2023-01-14] MEDS: MIRTAZAPINE SOLTAB 15 MG TAB.DISPER PO (20:50)
[2023-01-14] MEDS: GABAPENTIN 400 MG CAPSULE PO (20:50)
[2023-01-14] MEDS: FAMOTIDINE 20 MG TABLET 40 MG PO (20:50)
[2023-01-14] MEDS: PRAMIPEXOLE 0.25 MG TABLET PO (20:50)
[2023-01-14] MEDS: traZODone HCL 50 MG TABLET 100 MG PO (20:51)
[2023-01-15] VITALS (12 sets, daily range): BP systolic 111–134; BP diastolic 65–91; PULSE 65–96; RESP 10–18; TEMP 36.7–37.4; O2SAT 94–99
[2023-01-15] MEDS: LEVOTHYROXINE SODIUM 150 MCG TABLET PO (06:00)
[2023-01-15 06:05] LABS: Alveolar/Arterial O2 Gradient 125.3 mmHg; Base Excess ABG 5.6 mEq/l (+/-2.0); Fractional Inspired Oxygen 36 %; HCO3 ABG 31.7 mEq/l (22.0-26.0); Oxygen Content ABG 18.1 %vol (16.0-22.0); Oxygen Saturation ABG 94.2 % (95.0-100.0); Oxyhemoglobin 92.6 % THb (90.0-100.0); PCO2 ABG 51.7 mmHg (35.0-45.0); PO2 ABG 71.4 mmHg (80.0-100.0); PO2 FiO2 Ratio Arterial Blood 1.98 %; Total Hemoglobin 13.9 g/dL (12.0-18.0); pH ABG 7.405 (7.350-7.450)
[2023-01-15 06:06] LABS: Device CPAP; Site Drawn RIGHT BRACHIAL
[2023-01-15] MEDS: ASCORBIC ACID 500 MG TABLET PO ×2 (08:34→17:26)
[2023-01-15] MEDS: LORATADINE 10 MG TABLET PO (08:34)
[2023-01-15] MEDS: PANTOPRAZOLE 40 MG TABLET PO ×2 (08:34→20:50)
[2023-01-15] MEDS: dilTIAZem HCL 60 MG TABLET PO ×3 (08:34→17:25)
[2023-01-15] MEDS: MIRABEGRON 25 MG ER TABLET PO (08:34)
[2023-01-15] MEDS: methocarbamoL 750 MG TABLET PO ×3 (08:34→17:26)
[2023-01-15] MEDS: POTASSIUM CHLORIDE 20 MEQ ER TABLET PO ×2 (08:34→17:26)
[2023-01-15] MEDS: OPTI-GEN TAB 2 TABLET PO (08:34)
[2023-01-15] MEDS: GABAPENTIN 100 MG CAPSULE PO (08:34)
[2023-01-15] MEDS: FUROSEMIDE INJ 40 MG/4 ML VIAL 20 MG IV PUSH (08:34)
[2023-01-15] MEDS: METOPROLOL SUCCINATE EXT REL 25 MG TABCR PO (08:35)
[2023-01-15] MEDS: buPROPion HCL SR (12 HR) 150 MG TAB PO ×2 (08:35→17:26)
[2023-01-15] MEDS: FERROUS GLUCONATE 324 MG TABLET 648 MG BY MOUTH (08:35)
--- NOTE | 2023-01-15 09:03 | PM.IMPN ---
Progress Note: A&P Assessment and Plan (1) Acute exacerbation of CHF (congestive heart failure): Code(s): I50.9 - Heart failure, unspecified Status: Acute Assessment and Plan: Pro BNP is elevated patient has crackles and history of chronic diastolic heart failure. IV Lasix 40 mg b.i.d. with potassium oral 20 mEq b.i.d. is ordered. Echo 01/07/2023: Normal ejection fraction severe biatrial dilation atrial fibrillation/flutter sclerotic aortic valve The left ventricular diastolic function is abnormal. Most likely patient has acute on chronic diastolic heart failure decrease lasix 20 mg bid iv from 40mg bid iv. added diamox 250 mg iv dialy, bicarbonte was high, now improves dc diamox per siding coreboard inspector Consult overlock collar setter compensated now. change to lasix 40 mg bid po and dc lasix 20 mg bid po (2) COVID-19: Code(s): U07.1 - COVID-19 Status: Acute Assessment and Plan: Patient has hypoxia with COVID 19 diagnosis. received IV dexamethasone and remdesivir. BMI 50 .8 Possible obesity hypoventilation syndrome Consult siding coreboard inspector for evaluation treatment (3) Atrial fibrillation with RVR: Code(s): I48.91 - Unspecified atrial fibrillation Status: Acute Assessment and Plan: Patient was in rapid atrial fibrillation in the emergency department with concomitant hypoxia. She received IV diltiazem one time push Controlled with and Cardizem On Xarelto (4) Acute respiratory failure due to COVID-19: Code(s): U07.1 - COVID-19; J96.00 - Acute respiratory failure, unspecified whether with hypoxia or hypercapnia Status: Acute Assessment and Plan: Acute hypercapnic and hypoxic respiratory failure with concomitant CHF and COVID-19. Stable on current medication. dc dexamethasone per siding coreboard inspector request (5) Current use of care home anticoagulation: Code(s): Z79.01 - intermediate frame tender (current) use of anticoagulants Status: Chronic Assessment and Plan: On Xarelto for VTE prophylaxis due to atrial fibrillation (6) Essential hypertension: Code(s): I10 - Essential (primary) hypertension Status: Chronic Assessment and Plan: Stable on current medication. Continue current treatment. (7) Obstructive sleep apnea on CPAP: Code(s): G47.33 - Obstructive sleep apnea (adult) (pediatric); Z99.89 - Dependence on other enabling machines and devices Status: Chronic Assessment and Plan: management per siding coreboard inspector. Plan DVT prophylaxis on Xarelto Patient is morbidly obese, has multiple comorbidities, patient has general weakness, unable to ambulate without assistance since admission. Patient will benefit from rehab placement at discharge. But medical insurance declined requests of rehab placement. P2P DISCUSSION IS SCHEDULED 9 A.M. TOMORROW MORNING Subjective Date/time seen: 01/15/23 09:03 Interval history: I saw on exam patient today. Patient feels comfortable in chair, on 3 L nasal cannula Patient still have weakness, has difficulty with walking, has needed assistance with ambulation during hospitalization Exam Narrative: GENERAL: ill appearing, alert and oriented, not in acute distress HEENT: Pupils are equally round and briskly reactive to light. Extraocular muscles are intact. Oral mucous membranes are moist without lesions. NECK: The patient has no noted JVD. No adenopathy is appreciated. CHEST/LUNGS: Lungs are diminished bilaterally no wheezes, stilll has some crackles bilateral base,improving HEART: The patient has a variable, irregular rate and irregularly irregular rhythm. No murmurs, rubs, or gallops are appreciated. Distal pulses are 2+. ABDOMEN: The patient's abdomen is soft, nontender, and nondistended. Bowel sounds are positive. No peritoneal signs. EXTREMITIES: 1 + edema. There is no focal long bone tenderness or deformity. SKIN: The patient's skin is warm and dry, without rashes or lesions. [address] st
--- NOTE | 2023-01-15 09:10 | PM.PNPUL ---
Progress Note: A&P Assessment and Plan (1) CHARLES (obstructive sleep apnea): Code(s): G47.33 - Obstructive sleep apnea (adult) (pediatric) Status: Acute Assessment and Plan: 01/12 Patient has had sleep apnea and has been very compliant with auto CPAP.? No previous sleep studies available.? Current APAP using pressure range of 5-14.? Patient also on supplemental oxygen at 4 liters/minute.? Most CHF/afib patients are not best managed by APAP. She does not have old studies in out system. She may not need an [facility] while she is here. She is sick, [facility] is good for initial screening however she already has a diagnosis, a nd she is sick so the O2 requirement will be higher now with COVID-19 and CHF. Will discuss with her about follow up after discharge. 01/14 noman I will continue hospital auto PAP 5-14 with 4 L bleed in and and get an ABG prior to removal of the machine and an overnight oximetry on 4 L to assess oxygenation. I will send a TSH and free T4. I will attempt to obtain recent download from respiratory care on 01/15/2023. 01/15 patient wore the hospital auto Pap 5-14 and 4 L bleed in and did well overnight. She said she slept well with no problems. Currently she is on 3 L nasal cannula saturations 100% and has no respiratory complaints. Patient had an overnight oximetry on auto PAP 5-14 with 4 L bleed in and her average saturation was 97%. Low saturation 88%. Time with saturation less than or equal to 88% was 0 minutes. Oxygen desaturation index was 3.1. Patient had a blood gas prior to removal of the machine with a pH of 7.41/51.7/71. Patient is on 20 Lasix IV b.i.d.. Her weight is decreased from admission of 124.6 to 118.6 today. Free T4 1.06, TSH 19.8 on levothyroxine 150 mcg q.day. Plan: Patient is tolerating the auto PAP 5-14 and this feels like her home machine settings and her oxygenation is adequate on 4 L bleed in. Her PaCO2 is 51.7 on the auto Pap and the patient should have an outpatient ABG when she is euvolemic to assess if she has daytime hypercarbia (PaCO2 > 52) and if so consideration for noninvasive ventilation. Patient tells me that she was diagnosed with obstructive sleep apnea through the [facility] and that she plans to follow-up with them in the future. She will call them and make an appointment. Of note patient also sees Cardiology and PCP through [facility]. Discussed with Dr. Salomon, will sign off, call with questions. (2) Acute and chronic respiratory failure with hypoxia: Code(s): J96.21 - Acute and chronic respiratory failure with hypoxia Status: Acute Assessment and Plan: 82-year-old female with morbid obesity obstructive sleep apnea on CPAP, paroxysmal atrial fibrillation and congestive heart failure due to left ventricular diastolic dysfunction presented with shortness of breath.? Diagnostic studies showed some pulmonary congestion right pleural effusion elevated BNP consistent with acute on chronic diastolic heart failure.? In addition the patient tested positive for COVID and has received treatment with remdesivir and dexamethasone.? She finished 4 day treatment with remdesivir and currently receiving IV dexamethasone.? On physical exam she has no evidence of wheezing or lung congestion;? probably residual small pleural effusion on right.? Repeat chest x-ray showed clearing of lung congestion and also smaller infusion on right. Patient tells me she normally wears 3 L at home and 4 at night with her home CPAP machine through [facility]. 01/06/2023 blood gas 7.45/58/78 on 4 L nasal cannula. 01/14 patient has improved with treatment for COVID pneumonia and fluid overload. Patient tells me she normally wears 3 L at home and 4 at night with her home CPAP machine through [facility]. Currently she is on 3 L nasal cannula saturations 100%. Goal saturations 90-94%. Wean FiO2 as tolerated. Patient will ultimately
--- NOTE | 2023-01-15 09:53 | PCNWS ---
Weekly nutritional screen. Patient is tolerating current diet with adequate intake. No weight loss reported. No nutritional needs at this time.
[2023-01-15] MEDS: HYDROcodone/acetaminophen (*CRX) 5-325 MG TABLET 1 TAB PO ×3 (10:59→21:38)
[2023-01-15] MEDS: RIVAROXABAN 20 MG TABLET PO (17:25)
[2023-01-15] MEDS: FUROSEMIDE 40 MG TABLET PO (17:26)
[2023-01-15] MEDS: PRAMIPEXOLE 0.25 MG TABLET PO (20:50)
[2023-01-15] MEDS: MIRTAZAPINE SOLTAB 15 MG TAB.DISPER PO (20:50)
[2023-01-15] MEDS: FAMOTIDINE 20 MG TABLET 40 MG PO (20:50)
[2023-01-15] MEDS: GABAPENTIN 400 MG CAPSULE PO (20:50)
[2023-01-15] MEDS: traZODone HCL 50 MG TABLET 100 MG PO (20:50)
[2023-01-15] MEDS: ATORVASTATIN 40 MG TABLET PO (20:50)
[2023-01-16] VITALS: PULSE 78
[2023-01-16 04:00] VITALS: PULSE 79
[2023-01-16 05:48] VITALS: BP 130/64; PULSE 70; RESP 14; TEMP 36.4; O2SAT 98
[2023-01-16] MEDS: LEVOTHYROXINE SODIUM 150 MCG TABLET PO (05:48)
[2023-01-16 08:00] VITALS: PULSE 78; O2SAT 98
[2023-01-16] MEDS: MIRABEGRON 25 MG ER TABLET PO (09:16)
[2023-01-16] MEDS: buPROPion HCL SR (12 HR) 150 MG TAB PO (09:17)
[2023-01-16] MEDS: FERROUS GLUCONATE 324 MG TABLET 648 MG BY MOUTH (09:17)
[2023-01-16] MEDS: GABAPENTIN 100 MG CAPSULE PO (09:17)
[2023-01-16] MEDS: clonazePAM (*CRX) 0.5 MG TABLET 1 MG PO (09:17)
[2023-01-16] MEDS: LORATADINE 10 MG TABLET PO (09:17)
[2023-01-16] MEDS: dilTIAZem HCL 60 MG TABLET PO ×2 (09:17→12:02)
[2023-01-16] MEDS: ASCORBIC ACID 500 MG TABLET PO (09:17)
[2023-01-16] MEDS: OPTI-GEN TAB 2 TABLET PO (09:17)
[2023-01-16] MEDS: PANTOPRAZOLE 40 MG TABLET PO (09:17)
[2023-01-16 09:18] VITALS: PULSE 97
[2023-01-16] MEDS: METOPROLOL SUCCINATE EXT REL 25 MG TABCR PO (09:18)
[2023-01-16] MEDS: methocarbamoL 750 MG TABLET PO ×2 (09:18→12:02)
[2023-01-16] MEDS: HYDROcodone/acetaminophen (*CRX) 5-325 MG TABLET 1 TAB PO ×2 (09:18→15:07)
[2023-01-16] MEDS: POTASSIUM CHLORIDE 20 MEQ ER TABLET PO (09:18)
[2023-01-16] MEDS: FUROSEMIDE 40 MG TABLET PO (09:18)
--- NOTE | 2023-01-16 11:48 | PM.DS ---
DS: Admitting Diagnosis Discharge Date January 16, 2023 Admitting Diagnosis COVID, deconditioning, weakness DS: Discharge Diagnosis Discharge Diagnosis (1) Acute exacerbation of CHF (congestive heart failure): Code(s): I50.9 - Heart failure, unspecified Status: Acute Assessment and Plan: Pro BNP is elevated patient has crackles and history of chronic diastolic heart failure. IV Lasix 40 mg b.i.d. with potassium oral 20 mEq b.i.d. is ordered. Echo 01/07/2023: Normal ejection fraction severe biatrial dilation atrial fibrillation/flutter sclerotic aortic valve The left ventricular diastolic function is abnormal. Most likely patient has acute on chronic diastolic heart failure decrease lasix 20 mg bid iv from 40mg bid iv. added diamox 250 mg iv dialy, bicarbonte was high, now improves dc diamox per mold carrier Consult executive marketing assistant compensated now. change to lasix 40 mg bid po and dc lasix 20 mg bid po (2) COVID-19: Code(s): U07.1 - COVID-19 Status: Acute Assessment and Plan: Patient has hypoxia with COVID 19 diagnosis. received IV dexamethasone and remdesivir. BMI 50 .8 Possible obesity hypoventilation syndrome Consult mold carrier for evaluation treatment (3) Atrial fibrillation with RVR: Code(s): I48.91 - Unspecified atrial fibrillation Status: Acute Assessment and Plan: Patient was in rapid atrial fibrillation in the emergency department with concomitant hypoxia. She received IV diltiazem one time push Controlled with and Cardizem On Xarelto (4) Acute respiratory failure due to COVID-19: Code(s): U07.1 - COVID-19; J96.00 - Acute respiratory failure, unspecified whether with hypoxia or hypercapnia Status: Acute Assessment and Plan: Acute hypercapnic and hypoxic respiratory failure with concomitant CHF and COVID-19. Stable on current medication. dc dexamethasone per mold carrier request (5) Current use of shelter anticoagulation: Code(s): Z79.01 - jail (current) use of anticoagulants Status: Chronic Assessment and Plan: On Xarelto for VTE prophylaxis due to atrial fibrillation (6) Essential hypertension: Code(s): I10 - Essential (primary) hypertension Status: Chronic Assessment and Plan: Stable on current medication. Continue current treatment. (7) Obstructive sleep apnea on CPAP: Code(s): G47.33 - Obstructive sleep apnea (adult) (pediatric); Z99.89 - Dependence on other enabling machines and devices Status: Chronic Assessment and Plan: management per mold carrier. Plan DVT prophylaxis on Xarelto Patient is morbidly obese, has multiple comorbidities, patient has general weakness, unable to ambulate without assistance since admission. Patient will benefit from rehab placement at discharge. But medical insurance declined requests of rehab placement. P2P DISCUSSION IS SCHEDULED 9 A.M. TOMORROW MORNING DS: Summary Hospital Course Hospital Course: Patient is an 82-year-old female was admitted for COVID and CHF exacerbation from the senior living facility. This has been corrected and she is currently on her normal oxygen levels. Otherwise she is continuing to be exceptionally weak and frail. PT has evaluated the patient today and she is unable do any activity at all. I spoken to position for peer to peer and she has been approved to go back to senior living facility. Adjustments to cardiac medications have been made. Patient otherwise is stable and can be discharged. Overall poor prognosis. Time Spent with Patient Time attestation: Total time spent providing and/or coordinating discharge services: Exam Narrative: GENERAL: ill appearing, alert and oriented, not in acute distress HEENT: Pupils are equally round and briskly reactive to light. Extraocular muscles are intact. Oral mucous membranes are moist without lesions. NECK: The patient has no not
[2023-01-16 12:00] VITALS: PULSE 97
== END 2023-01-16 15:40 | DRG 177 ==
LOC: ANHED 12:34 → ANHIMU 13:37 → ANH3MED 01-08 22:19
PROVIDERS: Internal Medicine Pulmonary Disease; Nurse Practitioner; Admitting Provider Family Medicine; Emergency Provider Emergency Medicine; Visit Provider Chiropractor
DX: U07.1 COVID-19 (principal); I50.33 Acute on chronic diastolic (congestive) heart failure; J96.02 Acute respiratory failure with hypercapnia; J96.01 Acute respiratory failure with hypoxia; Z68.43 Body mass index [BMI] 50.0-59.9, adult; I48.19 Other persistent atrial fibrillation; E66.2 Morbid (severe) obesity with alveolar hypoventilation; I11.0 Hypertensive heart disease with heart failure; G25.81 Restless legs syndrome; E78.5 Hyperlipidemia, unspecified; G89.4 Chronic pain syndrome; F41.9 Anxiety disorder, unspecified; D64.9 Anemia, unspecified; K21.9 Gastro-esophageal reflux disease without esophagitis; E03.9 Hypothyroidism, unspecified; H35.30 Unspecified macular degeneration; Z96.653 Presence of artificial knee joint, bilateral; Z79.01 Long term (current) use of anticoagulants; Z85.850 Personal history of malignant neoplasm of thyroid; Z98.42 Cataract extraction status, left eye; Z98.41 Cataract extraction status, right eye; Z90.49 Acquired absence of other specified parts of digestive tract; Z90.710 Acquired absence of both cervix and uterus
CPT/HCPCS: 36415; 36600; 71045; 80048; 80053; 81003; 82375; 82565; 82805; 83050; 83735; 83880; 84439; 84443; 84460; 85025; 85610; 85730; 87636; 93005; 94640; 94762; 96374; 96375; 96376; 97110; 97161; 97165; 97530; 97535; 99285; A9270; C8929; G0378; J0248; J0360; J1100; J1120; J1940; Q9957

== ENCOUNTER 2023-02-17 12:44 | Inpatient (IN) | payer MEDICARE, SELFPAY ==
[2023-02-17] VITALS (13 sets, daily range): BP systolic 113–161; BP diastolic 45–106; PULSE 55–127; RESP 16–22; TEMP 36.6–36.8; O2SAT 93–99; BMI 51.6
--- NOTE | ~2023-02-17 | XR_ITS ---
Portable chest x-ray Comparison: 02/17/2023 Clinical History: CHF Findings: There is probable discoid atelectasis at the right midlung. There are minimal central inte rstitial changes. Probable minimal left pleural effusion. Cardiomediastinal silhouette is stable. Jose sebastian and soft tissues are unremarkable. Impression: Minimal central congestive changes, with minimal left pleural effusion and probable discoid right mid lung atelectasis. Stable cardiomegaly. Reviewed, dictated and finalized at location M. Impression: Minimal central congestive changes, with minimal left pleural effusion and prob able discoid right mid lung atelectasis. Stable cardiomegaly.
--- NOTE | ~2023-02-17 | CT_ITS ---
EXAMINATION:CT diagnostic chest wo con DATE: 02/18/2023 10:08 INDICATION: Abnormal chest radiograph. TECHNIQUE: Computed tomography (CT) of the chest was performed without intravenous contrast. Automate d exposure control and iterative reconstruction technique were employed. The dose-length product (DLP ) was 1022.41 mGy-cm. COMPARISON: Chest CT 12/05/16, chest radiograph 02/17/2023 FINDINGS: There are small pleural effusions. There is mild dependent atelectasis bilaterally. There i s a 6 mm nodule in right middle lobe, stable from 12/05/2016, likely benign. There is smooth septal th ickening in the lungs, consistent mild pulmonary edema. Cardiomegaly is noted. There are coronary art carter calcifications. There is a trace pericardial effusion. There are cysts in the liver measuring up to 3.3 cm. There is a 2.6 cm cyst in left kidney. There is severe cervical, thoracic, and lumbar spon dylosis. There are changes of posterior fusion procedure in lumbar spine. IMPRESSION: 1. Mild pulmonary edema. 2. Small pleural effusions. Reviewed, dictated and finalized at location A.
--- NOTE | ~2023-02-17 | XR_ITS ---
EXAMINATION: XR chest 1V portable Exam Date/Time: 02/17/2023 13:40 CDT HISTORY: SHORT OF BREATH, RESP DISTRESS Comparison: 01/10/2023 RESULT: Lines, tubes, and devices: Surgical clips in the lower neck. Incompletely visualized spinal fusion h ardware. Lungs and pleura: Moderate diffuse reticular opacities. Bilateral costophrenic angle blunting. Segme ntal left basilar opacities with left basilar lucency. Cardiomediastinal silhouette: Stable. Other: No acute osseous or upper abdominal finding. IMPRESSION: Left basilar lucency may represent visualization of the stomach bubble, aerated lung, or necrotic/cav itary lesion. Segmental left basilar atelectasis/consolidation. Small bilateral pleural effusions. Mild pulmonary edema. Reviewed, dictated and finalized at location K. IMPRESSION: Left basilar lucency may represent visualization of the stomach bubble, aerated lung, or necrotic/cavitary lesion. Segmental left basilar atelectasis/consolidation. Small bilateral pleural effusions. Mild pulmonary edema.
--- NOTE | 2023-02-17 12:55 | ECG_ITS ---
Measurements Intervals [place] Rate: 109 P: [place]: 0 QRS: 62 QRSD: 80 T: -48 QT: 327 QTc: 442 Interpretive Statements ATRIAL FIBRILLATION WITH RAPID VENTRICULAR RESPONSE LOW QRS VOLTAGE IN PRECORDIAL LEADS [QRS DEFLECTION < 1.0 mV IN CHEST LEADS] NONSPECIFIC T-WAVE ABNORMALITY ABNORMAL ECG COMPARED TO ECG 01/06/2023 10:24:03 NO SIGNIFICANT CHANGES Electronically Signed On 02-18-2023 9:24:03 CDT by Randall Daly M.D.
--- NOTE | 2023-02-17 13:06 | ED.SOB ---
HPI - SOB/Dyspnea General Chief Complaint: Shortness of Breath/Dyspnea Stated Complaint: resp distress Time Seen by Provider: 02/17/23 13:02 History of Present Illness HPI Narrative: Patient is an 82-year-old female with a history of A-fib on Xarelto, CHF, hyperlipidemia, hypertension, COPD, hypothyroidism presenting with shortness of breath. Patient is coming from a nursing facility. States that she has been feeling short of breath since last night. States that she takes her meds as long as the [facility] gives them to her. States they are not very good about it. EMS placed her on CPAP and she states that she is feeling a bit better. She denies any pain whatsoever. No infectious symptoms. Denies further complaints. Related Data Home Medications Medication Instructions Recorded Confirmed atorvastatin 40 mg tablet 40 mg PO HS 02/16/20 02/17/23 bupropion HCl 150 mg tablet,12 hr 150 mg PO BID 02/16/20 02/17/23 sustained-release clonazepam 1 mg tablet 1 mg PO DAILY PRN Anxiety 02/16/20 02/18/23 gabapentin 100 mg capsule 100 mg PO QAM 02/16/20 02/17/23 mirtazapine 15 mg disintegrating 15 mg PO HS 02/16/20 02/17/23 tablet rivaroxaban 20 mg tablet (Xarelto) 20 mg PO DAILY 02/16/20 02/17/23 vit C 250 mg-vit E 90 mg-zinc 40 2 tablet PO DAILY 02/16/20 02/17/23 mg-copper 1 [id number] capsule (PreserVision AREDS-2) calcium carbonate 600 mg-vitamin 1 cap PO DAILY 10/15/20 02/17/23 D3 12.5 mcg (500 unit) capsule famotidine 40 mg tablet 40 mg PO HS 10/15/20 02/17/23 mirabegron 25 mg tablet,extended 25 mg PO DAILY 10/15/20 02/17/23 release 24 hr (Myrbetriq) pramipexole 0.25 mg tablet 0.25 mg PO HS 10/15/20 02/17/23 Fleet Enema 1 ea RECTAL DAILY PRN Constipation 01/06/23 02/17/23 acetaminophen 500 mg tablet 1,000 mg PO Q6H PRN Pain 01/06/23 02/17/23 (Tylenol Extra Strength) ascorbic acid (vitamin C) 500 mg 500 mg PO BID 01/06/23 02/17/23 tablet cetirizine 10 mg tablet 10 mg PO DAILY 01/06/23 02/17/23 ferrous gluconate 324 mg (38 mg See Rx Instructions .Route .COMPLEX 01/06/23 02/17/23 iron) tablet gabapentin 100 mg capsule 400 mg PO HS 01/06/23 02/17/23 hydrocortisone 2.5 % rectal cream 1 ea RECTAL Q12H PRN Hemorrhoids 01/06/23 02/17/23 with applicator levothyroxine 150 mcg capsule 175 mcg PO QAM 01/06/23 02/17/23 methocarbamol 750 mg PO TID 01/06/23 02/17/23 metoprolol succinate 25 mg PO DAILY 01/06/23 02/17/23 diltiazem HCl 180 mg capsule,24 180 mg PO DAILY 02/17/23 02/17/23 hr,extended release oxycodone 5 mg tablet 5 mg PO Q6H PRN Pain, Moderate 02/17/23 02/17/23 trazodone 100 mg tablet 200 mg PO HS PRN Insomnia 02/21/23 02/21/23 Allergies Allergy/AdvReac Type Severity Reaction Status Date / Time Methotrexate Analogues Allergy Unknown mouth sores Verified 02/17/23 13:43 Sulfa (Sulfonamide Allergy Unknown unknown Verified 02/17/23 13:43 Antibiotics) Review of Systems Review of Systems: All systems reviewed & are unremarkable except as noted in HPI and below PMFSH Past Medical History Medical History Anemia Anxiety Chronic anticoagulation Chronic diastolic congestive heart failure Echocardiogram in October 2018 demonstrated hyperdynamic left ventricular function with an ejection fraction of 71%, moderate left atrial enlargement, and grade 2 diastolic dysfunction. Chronic pain syndrome Chronic wound infection of abdomen On long-term doxycycline b.i.d. Current use of assisted anticoagulation On Xarelto for stroke prophylaxis given paroxysmal atrial fibrillation. Depression Essential hypertension Gastroesophageal reflux disease Hyperlipidemia Macular degeneration Morbid obesity Obstructive sleep apnea on CPAP Overactive bladder Persistent atrial fibrillation Pneumonia due to COVID-19 virus (03/2020) Postsurgical hypothyroidism Restless leg syndrome Shingles Thyroid cancer Status post thyroidectomy. Surgical History Surgical
[2023-02-17 13:17] LABS: Alveolar/Arterial O2 Gradient 145.1 mmHg; Base Excess ABG 7.8 mEq/l (+/-2.0); Fractional Inspired Oxygen 40 %; HCO3 ABG 33.9 mEq/l (22.0-26.0); Oxygen Saturation ABG 95.9 % (95.0-100.0); PCO2 ABG 52.5 mmHg (35.0-45.0); PO2 ABG 79.7 mmHg (80.0-100.0); PO2 FiO2 Ratio Arterial Blood 1.99 %; pH ABG 7.428 (7.350-7.450)
[2023-02-17 13:19] LABS: Device BIPAP; Modified Allen's Test Pass; Site Drawn RIGHT RADIAL
[2023-02-17 13:20] LABS: Expiratory Pressure 8 cmH2O; Inspiratory Pressure 12 cmH2O
[2023-02-17 13:26] LABS: Basophils Percent Auto 0.3 % (0.2-1.2); Eosinophils Absolute Auto 0.1 K/mm3 (0-0.3); Eosinophils Percent Auto 0.5 % (0-4.4); Hematocrit 41.3 % (37.0-47.0); Hemoglobin 12.9 g/dL (12.0-15.0); Immature Granulocyte Absolute 0.04 K/mm3 (0.00-0.031); Immature Granulocyte Percent A 0.4 % (0-0.5); Lymphocytes Absolute Auto 0.77 K/mm3 (0.9-3.2); Lymphocytes Percent Auto 8.1 % (18.3-44.2); Mean Corpuscular HGB Conc 31.2 g/dl (32-36); Mean Corpuscular Hemoglobin 32.8 pg (26-34); Mean Corpuscular Volume 105.1 fl (80-100); Monocytes Absolute Auto 0.7 K/mm3 (0.1-0.6); Monocytes Percent Auto 7.1 % (2.6-8.5); Neutrophils Percent Auto 83.6 % (45.5-73.1); Platelet Count Result 195 k/mm3 (150-375); Red Blood Count 3.93 M/mm3 (4.2-5.4); Red Cell Distribution Width 15.2 % (11.5-14.5); White Blood Count 9.5 K/mm3 (4.5-10.0)
[2023-02-17 13:36] LABS: Magnesium 5.5 mg/dL (1.6-2.3)
[2023-02-17 13:37] LABS: Alanine Aminotransferase 17 U/L (6-35); Alkaline Phosphatase 160 U/L (38-126); Anion Gap 7 mmol/L (8-16); Aspartate Amino Transferase 28 U/L (14-36); Bilirubin,Total 1.1 mg/dL (0.2-1.3); Blood Urea Nitrogen 15 mg/dL (7-17); Calcium 8.9 mg/dL (8.4-10.2); Carbon Dioxide 33 mmol/L (22-30); Chloride 98 mmol/L (98-107); Estimated Glomerular Filt Rate > 60; Glucose 114 mg/dL (65-110); Potassium 3.7 mmol/L (3.4-5.0); Sodium 138 mmol/L (137-145)
[2023-02-17 13:40] LABS: INR 1.9; Prothrombin Time 23.4 Seconds (11.1-14.7)
[2023-02-17 13:41] LABS: Partial Thromboplastin Time 33.4 SECONDS (22.3-36.8)
[2023-02-17 13:46] LABS: NT Pro B Type Natriuretic Pept 4520 pg/mL (19.9-100)
[2023-02-17 14:14] LABS: Influenza A QL RT-PCR Negative (Negative); Influenza B QL RT-PCR Negative (Negative); SARS-CoV-2 RNA PCR Negative (Negative)
[2023-02-17] MEDS: FUROSEMIDE INJ 40 MG/4 ML VIAL IV PUSH (15:52)
[2023-02-17 16:26] LABS: Troponin I < 0.012 ng/mL (0.000-0.034)
--- NOTE | 2023-02-17 16:31 | PM.IMHP ---
H&P: HPI History of Present Illness Date/Time: 02/17/23 18:30 Chief Complaint: Shortness of breath. Narrative: This is an 82-year-old female?with multiple medical problems including paroxysmal atrial fibrillation on long-term anticoagulation, hypertension, hyperlipidemia, obstructive sleep apnea, hypothyroidism, diastolic congestive heart failure, morbid obesity, chronic respiratory failure with hypoxia and hypercarbia, and several other comorbidities who presented to the emergency department earlier today via EMS for evaluation of shortness of breath. The patient provides the following history. She has chronic shortness of breath however staff at the facility noticed that she seemed to be more short of breath than usual starting yesterday. She seemed more short of breath this afternoon and apparently had increasing oxygen requirements so she was started on CPAP and was brought in for evaluation. Aside from the shortness of breath she otherwise feels okay and she denies fever, chills, sweats, cold and flu symptoms, chest pain, pleuritic pain, palpitations, nausea, and vomiting. In the ED: She was afebrile on arrival with stable blood pressures. ABG showed a compensated, chronic respiratory acidosis. Initial troponin was well within normal limits. ProBNP was 4520 which is higher than what she typically runs. Chest x-ray showed small bilateral pleural effusions, mild pulmonary edema, segmental left basilar atelectasis/consolidation, and a left basilar lucency which may represent visualization of stomach bubble, aerated lung or necrotic/cavitary lesion. She was given a dose of IV furosemide 40 mg x 1 and she is being admitted in this setting for further diuresis as she appears to be in mild heart failure exacerbation. She is currently at [facility] and she is concerned that they do not give her medications appropriately. Does not sound as though she is kept on a heart healthy diet either. Review of Systems Review of Systems: Twelve systems were reviewed and are negative except for as per HPI. [facility] Past Medical History Medical History (Updated 02/18/23 @ 00:28 by Windy Levin PA-C) Anemia Anxiety Chronic anticoagulation Chronic diastolic congestive heart failure Echocardiogram in October 2018 demonstrated hyperdynamic left ventricular function with an ejection fraction of 71%, moderate left atrial enlargement, and grade 2 diastolic dysfunction. Chronic pain syndrome Chronic wound infection of abdomen On long-term doxycycline b.i.d. Current use of ferry terminal agent anticoagulation On Xarelto for stroke prophylaxis given paroxysmal atrial fibrillation. Depression Essential hypertension Gastroesophageal reflux disease Hyperlipidemia Macular degeneration Morbid obesity Obstructive sleep apnea on CPAP Overactive bladder Persistent atrial fibrillation Pneumonia due to COVID-19 virus (03/2020) Postsurgical hypothyroidism Restless leg syndrome Shingles Thyroid cancer Status post thyroidectomy. Surgical History Surgical History (Updated 02/17/23 @ 16:33 by Windy Levin PA-C) History of appendectomy (2003) Complicated postoperative course with chronic midline abdominal wound. History of bilateral cataract extraction History of hernia repair History of orthopedic surgery ORIF right lower extremity fracture. History of ovarian cystectomy History of spinal surgery History of thyroidectomy History of total abdominal hysterectomy History of total bilateral knee replacement Family History Family History Mother Alzheimer's dementia Hypertension Father Acute myocardial infarction Sibling Hypertension Son Heart attack Social History Social History (Updated 02/17/23 @ 16:33 by Windy Levin PA-C) Social History: Surrogate decision maker: Prince Juan F, . Code status: Full code. Smoking status: Never smoker Second hand tobacco smoke exposu
--- NOTE | 2023-02-17 17:42 | ADMGEN ---
This patient, Michelle Rogel, was admitted to IMU Room 231-01. Patient/family oriented to hospital policies and general routines including ID bracelet, bed and alarms, visiting hours, pain management, procedures, bathroom and other care routines, personal items, smoking policy, room service/diet, and visiting hours. Information on how to activate the Rapid Response Team has been discussed. Patient/Family are encouraged to report perceived risks to care and to ask questions if they do not understand what they are told or what they should do.
[2023-02-17 20:32] LABS: Troponin I < 0.012 ng/mL (0.000-0.034)
[2023-02-17] MEDS: buPROPion HCL SR (12 HR) 150 MG TAB PO (22:16)
[2023-02-17] MEDS: GABAPENTIN 400 MG CAPSULE PO (22:21)
[2023-02-17] MEDS: methocarbamoL 750 MG TABLET PO (22:21)
[2023-02-17] MEDS: RIVAROXABAN 20 MG TABLET PO (22:22)
[2023-02-17] MEDS: PRAMIPEXOLE 0.25 MG TABLET PO (22:22)
[2023-02-17] MEDS: dilTIAZem HCL 30 MG TABLET PO (22:22)
[2023-02-17] MEDS: FAMOTIDINE 20 MG TABLET 40 MG PO (22:23)
[2023-02-17] MEDS: ATORVASTATIN 40 MG TABLET PO (22:24)
[2023-02-17] MEDS: MIRTAZAPINE SOLTAB 15 MG TAB.DISPER PO (22:28)
[2023-02-18] VITALS (23 sets, daily range): BP systolic 118–158; BP diastolic 83–101; PULSE 74–104; RESP 16–22; TEMP 35.4–37.1; O2SAT 89–100
[2023-02-18 05:47] LABS: Hematocrit 38.9 % (37.0-47.0); Hemoglobin 11.9 g/dL (12.0-15.0); Mean Corpuscular HGB Conc 30.6 g/dl (32-36); Mean Corpuscular Hemoglobin 32.8 pg (26-34); Mean Corpuscular Volume 107.2 fl (80-100); Mean Platelet Volume 9.7 fl (7.4-10.4); Platelet Count Result 185 k/mm3 (150-375); Red Blood Count 3.63 M/mm3 (4.2-5.4); Red Cell Distribution Width 14.6 % (11.5-14.5); White Blood Count 3.4 K/mm3 (4.5-10.0)
[2023-02-18 05:57] LABS: Alanine Aminotransferase 15 U/L (6-35); Albumin Level 3.7 g/dL (3.5-5.1); Alkaline Phosphatase 132 U/L (38-126); Anion Gap 3 mmol/L (8-16); Aspartate Amino Transferase 21 U/L (14-36); Bilirubin,Total 0.8 mg/dL (0.2-1.3); Blood Urea Nitrogen 15 mg/dL (7-17); Calcium 8.3 mg/dL (8.4-10.2); Carbon Dioxide 36 mmol/L (22-30); Chloride 98 mmol/L (98-107); Estimated CRCL calculation 88 ml/min; Estimated Glomerular Filt Rate > 60; Glucose 153 mg/dL (65-110); Magnesium 2.2 mg/dL (1.6-2.3); Potassium 3.4 mmol/L (3.4-5.0); Sodium 137 mmol/L (137-145)
[2023-02-18] MEDS: clonazePAM (*CRX) 0.5 MG TABLET 1 MG PO (06:56)
[2023-02-18] MEDS: LEVOTHYROXINE SODIUM 100 MCG TABLET PO (07:01)
[2023-02-18] MEDS: LEVOTHYROXINE SODIUM 75 MCG TABLET PO (07:02)
[2023-02-18] MEDS: MIRABEGRON 25 MG ER TABLET PO (08:58)
[2023-02-18] MEDS: ASCORBIC ACID 500 MG TABLET PO ×2 (08:58→16:48)
[2023-02-18] MEDS: buPROPion HCL SR (12 HR) 150 MG TAB PO ×2 (08:58→20:39)
[2023-02-18] MEDS: OPTI-GEN TAB 2 TABLET PO (08:58)
[2023-02-18] MEDS: methocarbamoL 750 MG TABLET PO ×3 (08:58→16:48)
[2023-02-18] MEDS: LORATADINE 10 MG TABLET PO (08:58)
[2023-02-18] MEDS: FUROSEMIDE INJ 40 MG/4 ML VIAL IV PUSH ×2 (08:59→16:48)
[2023-02-18] MEDS: FERROUS GLUCONATE 324 MG TABLET 648 MG BY MOUTH (08:59)
[2023-02-18] MEDS: METOPROLOL SUCCINATE EXT REL 25 MG TABCR PO (08:59)
[2023-02-18] MEDS: GABAPENTIN 100 MG CAPSULE PO (08:59)
[2023-02-18] MEDS: dilTIAZem HCL CD 180 MG CAP.24HR PO (08:59)
[2023-02-18] MEDS: oxyCODONE HCL (*CRX) 5 MG TAB IR PO ×2 (09:04→16:48)
--- NOTE | 2023-02-18 11:21 | PM.IMPN ---
Progress Note: A&P Assessment and Plan (1) Acute and chronic respiratory failure with hypoxia: Code(s): J96.21 - Acute and chronic respiratory failure with hypoxia Status: Acute Assessment and Plan: Likely secondary to volume overload. Continue Lasix. BiPAP as needed. (2) Acute on chronic diastolic congestive heart failure: Code(s): I50.33 - Acute on chronic diastolic (congestive) heart failure Status: Acute Assessment and Plan: See plan above (3) Abnormal finding on chest xray: Code(s): R93.89 - Abnormal findings on diagnostic imaging of other specified body structures Status: Acute Assessment and Plan: See plan above (4) Persistent atrial fibrillation: Code(s): I48.19 - Other persistent atrial fibrillation Status: Acute Assessment and Plan: Heart rates in the 80s and 90s (5) Obstructive sleep apnea on CPAP: Code(s): G47.33 - Obstructive sleep apnea (adult) (pediatric); Z99.89 - Dependence on other enabling machines and devices Status: Chronic Assessment and Plan: Chronic (6) Chronic anticoagulation: Code(s): Z79.01 - [facility] (current) use of anticoagulants Status: Acute Subjective Date/time seen: 02/18/23 11:21 Interval history: Still short of breath. Currently on BiPAP. Exam Narrative: General:??Morbidly obese female in the semi-Mandujano position in bed on BiPAP in no distress. She is nontoxic in appearance.? Weight:? 120 kg.? BMI:? 51.7. HEENT:??Normocephalic, atraumatic.? PERRL, EOMI.? Sclerae anicteric.? Oral mucosa appears moist through the mask mask. Neck:??Supple.? Exam difficult due to neck circumference and positioning.? No obvious JVD. Respiratory:?Lung sounds are diminished due to body habitus. Cardiovascular:??Regular rate and rhythm with S1-S2. Gastrointestinal:??Abdomen is soft, obese, nontender, and nondistended with positive bowel sounds. Skin:??Warm and dry. She has a chronic wound on the abdomen without evidence of infection. Lower leg show evidence of chronic skin changes.? Extremities:??No cyanosis or clubbing.? She has chronic edema of both legs. Peripheral pulses intact. Neurological:??Alert.? Cranial nerves 2-12 are grossly intact. No gross focal deficits to casual conversation. Psychiatric:??Pleasant and cooperative with normal mood and affect. Objective Data Vital Signs Vital Signs: Vital Signs - 24 hr 02/17/23 12:42 02/17/23 13:23 02/17/23 12:45 Temperature 98.3 F Pulse Rate 120 H 127 H Respiratory Rate 20 22 H Blood Pressure 145/106 H Pulse Oximetry 97 96 Oxygen Delivery EMS-CPAP BiPAP EMS-CPAP Oxygen Flow Rate Fraction of Inspired Oxygen 02/17/23 13:48 02/17/23 14:30 02/17/23 13:00 Temperature Pulse Rate 100 98 Respiratory Rate 22 H 20 Blood Pressure 130/87 115/84 Pulse Oximetry 96 98 97 Oxygen Delivery BiPAP Oxygen Flow Rate Fraction of Inspired Oxygen 02/17/23 15:30 02/17/23 16:30 02/17/23 16:30 Temperature Pulse Rate 55 L 106 H 99 Respiratory Rate 16 18 17 Blood Pressure 113/45 L 137/75 Pulse Oximetry 99 97 96 Oxygen Delivery BiPAP Oxygen Flow Rate Fraction of Inspired Oxygen 02/17/23 17:20 02/17/23 19:18 02/17/23 19:23 Temperature 97.8 F Pulse Rate 100 110 H 119 H Respiratory Rate 18 22 H Blood Pressure 138/78 161/104 H Pulse Oximetry 98 93 Oxygen Delivery Oxygen Flow Rate Fraction of Inspired Oxygen 02/17/23 23:32 02/18/23 00:00 02/17/23 20:00 Temperature 97.4 F L Pulse Rate 117 H 88 Respiratory Rate 21 H 16 Blood Pressure 154/96 H Pulse Oximetry 98 98 93 Oxygen Delivery BiPAP Nasal Cannula Oxygen Flow Rate 4 Fraction of Inspired Oxygen 02/18/23 00:00 02/17/23 20:00 02/17/23 22:00 Temperature Pulse Rate 86 102 H Respiratory Rate Blood Pressure Pulse Oximetry 98 Oxygen Delivery BiPAP Oxygen Flow Rate Fraction of Inspired Oxygen 40
[2023-02-18] MEDS: MUPIROCIN 2% OINT 22 GM TUBE 1 APPLIC TOPICAL ×2 (12:19→20:39)
[2023-02-18] MEDS: RIVAROXABAN 20 MG TABLET PO (16:48)
[2023-02-18] MEDS: GABAPENTIN 400 MG CAPSULE PO (20:39)
[2023-02-18] MEDS: ATORVASTATIN 40 MG TABLET PO (20:39)
[2023-02-18] MEDS: PRAMIPEXOLE 0.25 MG TABLET PO (20:39)
[2023-02-18] MEDS: FAMOTIDINE 20 MG TABLET 40 MG PO (20:39)
[2023-02-18] MEDS: MIRTAZAPINE SOLTAB 15 MG TAB.DISPER PO (20:39)
[2023-02-19] VITALS (22 sets, daily range): BP systolic 123–156; BP diastolic 76–101; PULSE 73–97; RESP 16–23; TEMP 36.1–36.9; O2SAT 95–100
[2023-02-19] MEDS: clonazePAM (*CRX) 0.5 MG TABLET 1 MG PO (05:27)
[2023-02-19] MEDS: oxyCODONE HCL (*CRX) 5 MG TAB IR PO ×2 (05:28→12:38)
[2023-02-19] MEDS: LEVOTHYROXINE SODIUM 75 MCG TABLET PO (05:28)
[2023-02-19] MEDS: LEVOTHYROXINE SODIUM 100 MCG TABLET PO (05:28)
[2023-02-19] MEDS: dilTIAZem HCL CD 180 MG CAP.24HR PO (10:04)
[2023-02-19] MEDS: OPTI-GEN TAB 2 TABLET PO (10:04)
[2023-02-19] MEDS: FERROUS GLUCONATE 324 MG TABLET 648 MG BY MOUTH (10:04)
[2023-02-19] MEDS: LORATADINE 10 MG TABLET PO (10:04)
[2023-02-19] MEDS: MIRABEGRON 25 MG ER TABLET PO (10:04)
[2023-02-19] MEDS: GABAPENTIN 100 MG CAPSULE PO (10:04)
[2023-02-19] MEDS: ASCORBIC ACID 500 MG TABLET PO ×2 (10:04→17:01)
[2023-02-19] MEDS: METOPROLOL SUCCINATE EXT REL 25 MG TABCR PO (10:04)
[2023-02-19] MEDS: FUROSEMIDE INJ 40 MG/4 ML VIAL IV PUSH ×2 (10:05→17:04)
[2023-02-19] MEDS: methocarbamoL 750 MG TABLET PO ×3 (10:05→17:01)
[2023-02-19] MEDS: buPROPion HCL SR (12 HR) 150 MG TAB PO ×2 (10:05→20:27)
[2023-02-19] MEDS: MUPIROCIN 2% OINT 22 GM TUBE 1 APPLIC TOPICAL ×2 (10:05→20:28)
--- NOTE | 2023-02-19 11:30 | PM.IMPN ---
Progress Note: A&P Assessment and Plan (1) Acute and chronic respiratory failure with hypoxia: Code(s): J96.21 - Acute and chronic respiratory failure with hypoxia Status: Acute Assessment and Plan: Oxygen and BiPAP as needed. Respiratory status is improved today. She is on 4L nasal cannula. (2) Acute on chronic diastolic congestive heart failure: Code(s): I50.33 - Acute on chronic diastolic (congestive) heart failure Status: Acute Assessment and Plan: Continue diuretic therapy. Diuresing well. Respiratory status is improving. (3) Abnormal finding on chest xray: Code(s): R93.89 - Abnormal findings on diagnostic imaging of other specified body structures Status: Acute Assessment and Plan: Monitor, respiratory status is improving. (4) Persistent atrial fibrillation: Code(s): I48.19 - Other persistent atrial fibrillation Status: Acute Assessment and Plan: Chronic and stable. (5) Obstructive sleep apnea on CPAP: Code(s): G47.33 - Obstructive sleep apnea (adult) (pediatric); Z99.89 - Dependence on other enabling machines and devices Status: Chronic (6) Chronic anticoagulation: Code(s): Z79.01 - [facility] (current) use of anticoagulants Status: Acute Subjective Date/time seen: 02/19/23 11:30 Interval history: Patient is breathing much better. Has responded to Lasix. Currently on nasal cannula. Using BiPAP as needed Exam Narrative: General:??Morbidly obese female in the semi-Mandujano position in bed on BiPAP in no distress. She is nontoxic in appearance.? Weight:? 120 kg.? BMI:? 51.7. HEENT:??Normocephalic, atraumatic.? PERRL, EOMI.? Sclerae anicteric.? Oral mucosa appears moist through the mask mask. Neck:??Supple.? Exam difficult due to neck circumference and positioning.? No obvious JVD. Respiratory:?Lung sounds are diminished due to body habitus. Cardiovascular:??Regular rate and rhythm with S1-S2. Gastrointestinal:??Abdomen is soft, obese, nontender, and nondistended with positive bowel sounds. Skin:??Warm and dry. She has a chronic wound on the abdomen without evidence of infection. Lower leg show evidence of chronic skin changes.? Extremities:??No cyanosis or clubbing.? She has chronic edema of both legs. Peripheral pulses intact. Neurological:??Alert.? Cranial nerves 2-12 are grossly intact. No gross focal deficits to casual conversation. Psychiatric:??Pleasant and cooperative with normal mood and affect. Objective Data Vital Signs Vital Signs: Vital Signs - 24 hr 02/18/23 11:40 02/18/23 12:00 02/18/23 12:00 Temperature 97.3 F L Pulse Rate 90 89 Respiratory Rate 21 H Blood Pressure 142/83 H Pulse Oximetry 96 100 Oxygen Delivery Nasal Cannula Oxygen Flow Rate 4 Fraction of Inspired Oxygen 02/18/23 14:00 02/18/23 15:56 02/18/23 16:00 Temperature 97.7 F Pulse Rate 87 80 Respiratory Rate 18 Blood Pressure 118/85 Pulse Oximetry 100 100 Oxygen Delivery Nasal Cannula Oxygen Flow Rate 4 Fraction of Inspired Oxygen 02/18/23 16:00 02/18/23 14:25 02/18/23 18:00 Temperature Pulse Rate 79 82 Respiratory Rate Blood Pressure Pulse Oximetry 100 Oxygen Delivery BiPAP Oxygen Flow Rate Fraction of Inspired Oxygen 40 02/18/23 20:00 02/18/23 20:00 02/18/23 20:00 Temperature 97.2 F L Pulse Rate 89 90 91 Respiratory Rate 22 H Blood Pressure 140/88 Pulse Oximetry 96 89 L Oxygen Delivery Nasal Cannula Oxygen Flow Rate 4 Fraction of Inspired Oxygen 02/18/23 21:36 02/18/23 22:00 02/18/23 23:06 Temperature Pulse Rate 78 80 86 Respiratory Rate 19 Blood Pressure Pulse Oximetry 100 100 Oxygen Delivery BiPAP BiPAP Oxygen Flow Rate Fraction of Inspired Oxygen 40 02/19/23 00:00 02/19/23 00:00 02/19/23 00:49 Temperature 97.6 F Pulse Rate 73 75 83 Respiratory Rate 16 18 Blood Pressure 139/76 Pulse Oximetry 99
[2023-02-19] MEDS: RIVAROXABAN 20 MG TABLET PO (17:01)
[2023-02-19] MEDS: FAMOTIDINE 20 MG TABLET 40 MG PO (20:27)
[2023-02-19] MEDS: MIRTAZAPINE SOLTAB 15 MG TAB.DISPER PO (20:27)
[2023-02-19] MEDS: PRAMIPEXOLE 0.25 MG TABLET PO (20:27)
[2023-02-19] MEDS: GABAPENTIN 400 MG CAPSULE PO (20:28)
[2023-02-19] MEDS: ATORVASTATIN 40 MG TABLET PO (20:28)
[2023-02-20] VITALS (20 sets, daily range): BP systolic 134–152; BP diastolic 78–95; PULSE 68–114; RESP 17–23; TEMP 36.2–36.6; O2SAT 94–99
[2023-02-20 05:28] LABS: Blood Urea Nitrogen 27 mg/dL (7-17); Calcium 8.1 mg/dL (8.4-10.2); Carbon Dioxide > 40 mmol/L (22-30); Chloride 97 mmol/L (98-107); Estimated CRCL calculation 66 ml/min; Estimated Glomerular Filt Rate > 60; Glucose 89 mg/dL (65-110); Sodium 139 mmol/L (137-145)
[2023-02-20] MEDS: clonazePAM (*CRX) 0.5 MG TABLET 1 MG PO (06:20)
[2023-02-20] MEDS: LEVOTHYROXINE SODIUM 100 MCG TABLET PO (06:20)
[2023-02-20] MEDS: oxyCODONE HCL (*CRX) 5 MG TAB IR PO ×2 (06:20→12:16)
[2023-02-20] MEDS: LEVOTHYROXINE SODIUM 75 MCG TABLET PO (06:20)
[2023-02-20] MEDS: OPTI-GEN TAB 2 TABLET PO (08:38)
[2023-02-20] MEDS: buPROPion HCL SR (12 HR) 150 MG TAB PO ×2 (08:39→20:13)
[2023-02-20] MEDS: dilTIAZem HCL CD 180 MG CAP.24HR PO (08:39)
[2023-02-20] MEDS: GABAPENTIN 100 MG CAPSULE PO (08:39)
[2023-02-20] MEDS: FUROSEMIDE INJ 40 MG/4 ML VIAL IV PUSH ×2 (08:39→16:54)
[2023-02-20] MEDS: FERROUS GLUCONATE 324 MG TABLET 648 MG BY MOUTH (08:39)
[2023-02-20] MEDS: ASCORBIC ACID 500 MG TABLET PO ×2 (08:39→16:54)
[2023-02-20] MEDS: LORATADINE 10 MG TABLET PO (08:39)
[2023-02-20] MEDS: METOPROLOL SUCCINATE EXT REL 25 MG TABCR PO (08:39)
[2023-02-20] MEDS: MUPIROCIN 2% OINT 22 GM TUBE 1 APPLIC TOPICAL (08:39)
[2023-02-20] MEDS: methocarbamoL 750 MG TABLET PO ×3 (08:39→16:54)
[2023-02-20] MEDS: MIRABEGRON 25 MG ER TABLET PO (08:39)
[2023-02-20] MEDS: RIVAROXABAN 20 MG TABLET PO (16:54)
--- NOTE | 2023-02-20 18:18 | PM.IMPN ---
Progress Note: A&P Assessment and Plan (1) Acute on chronic diastolic congestive heart failure: Code(s): I50.33 - Acute on chronic diastolic (congestive) heart failure Status: Acute (2) Non-healing wound: Status: Acute Plan acute on chronic heart failure resolving. planning [place] [facility] to peer tomorrow consulting general surgery for open and non healing abdominal wall wound w/ purulent drainage. culture pending. blood cultures so far no growth. has extensive 15 year history after a hernia repair with mesh, was supposed to be on chronic abx. needs wound care as well. will consult Full code stable Subjective Date/time seen: 02/20/23 18:18 Interval history: NAOE. pt denies complaints, except that she is very winded still when getting up Review of Systems Review of Systems: weak Cardiovascular: Cardiovascular: Denies chest pain Respiratory: Respiratory: Denies no additional respiratory complaints Gastrointestinal: Gastrointestinal: Denies abdominal pain Comments: abdominal wound, draining pus Exam Const: General: comfortable and no acute distress Eyes: Pupils: Equal, round and reactive pupils present Resp: Effort & Inspection: normal respiratory effort Auscultation: no crackles Cardio: Rate: regular rate Rhythm: regular rhythm GI: GI Palp: Yes Soft to palpation and No Tenderness to palpation present (GI) Other: open wound, unable to observe if tunneling. purulent drainage, foul odor Extrem: General: edema Other: 1+ b/l LE's w/ chronic stasis changes Objective Data Vital Signs Vital Signs: Vital Signs - 24 hr 02/19/23 19:27 02/19/23 21:21 02/19/23 20:00 Temperature 97.0 F L Pulse Rate 94 78 81 Respiratory Rate 22 H 23 H Blood Pressure 140/84 Pulse Oximetry 97 95 Oxygen Delivery BiPAP Oxygen Flow Rate Fraction of Inspired Oxygen 02/19/23 20:00 02/19/23 22:00 02/19/23 23:31 Temperature Pulse Rate 81 84 76 Respiratory Rate 23 H Blood Pressure Pulse Oximetry 95 Oxygen Delivery BiPAP Oxygen Flow Rate Fraction of Inspired Oxygen 36 02/19/23 23:31 02/19/23 23:23 02/20/23 02:00 Temperature 97.7 F Pulse Rate 76 83 68 Respiratory Rate 23 H 16 Blood Pressure 123/76 Pulse Oximetry 95 98 Oxygen Delivery BiPAP Oxygen Flow Rate Fraction of Inspired Oxygen 36 02/20/23 03:24 02/20/23 03:24 02/20/23 03:13 Temperature 97.6 F Pulse Rate 78 78 76 Respiratory Rate 23 H 18 Blood Pressure 135/78 Pulse Oximetry 95 98 Oxygen Delivery BiPAP Oxygen Flow Rate Fraction of Inspired Oxygen 36 02/20/23 02:30 02/20/23 05:47 02/20/23 08:34 Temperature 97.2 F L Pulse Rate 70 76 85 Respiratory Rate 17 18 Blood Pressure 134/79 Pulse Oximetry 96 95 Oxygen Delivery BiPAP Oxygen Flow Rate Fraction of Inspired Oxygen 02/20/23 08:39 02/20/23 08:00 02/20/23 09:51 Temperature Pulse Rate 97 Respiratory Rate Blood Pressure Pulse Oximetry 95 94 Oxygen Delivery Nasal Cannula Nasal Cannula Oxygen Flow Rate 4 4 Fraction of Inspired Oxygen 36 02/20/23 08:00 02/20/23 10:00 02/20/23 11:58 Temperature 98 F Pulse Rate 87 89 114 H Respiratory Rate 20 Blood Pressure 149/95 H Pulse Oximetry 99 Oxygen Delivery Oxygen Flow Rate Fraction of Inspired Oxygen 02/20/23 15:59 02/20/23 12:00 Temperature 97.8 F Pulse Rate 84 Respiratory Rate 22 H Blood Pressure 152/91 H Pulse Oximetry 99 99 Oxygen Delivery Nasal Cannula Oxygen Flow Rate 4 Fraction of Inspired Oxygen Intake/Output Intake/Output: Intake & Output 02/17/23 02/18/23 02/19/23 02/20/23 23:59 23:59 23:59 23:59 Intake Total 820 1820 1700 Output Total 1550 1900 1500 2200 Balance -[facility]6 -[id number] Meds/Results Medications: Active Medications Generic Name Dose Route Start Last Admin Trade Name Freq PRN Reason Stop Dose Admin Acetaminoph
[2023-02-20] MEDS: ATORVASTATIN 40 MG TABLET PO (20:13)
[2023-02-20] MEDS: GABAPENTIN 400 MG CAPSULE PO (20:13)
[2023-02-20] MEDS: FAMOTIDINE 20 MG TABLET 40 MG PO (20:13)
[2023-02-20] MEDS: PIPERACILLIN/TAZ 4.5G/NS 100ML 4.5 GM/100 ML BAG IVPB (20:13)
[2023-02-20] MEDS: PRAMIPEXOLE 0.25 MG TABLET PO (20:14)
[2023-02-20] MEDS: MIRTAZAPINE SOLTAB 15 MG TAB.DISPER PO (20:14)
[2023-02-21] VITALS (19 sets, daily range): BP systolic 110–152; BP diastolic 73–106; PULSE 69–86; RESP 17–20; TEMP 36.2–36.6; O2SAT 97–100
[2023-02-21] MEDS: PIPERACILLIN/TAZ 4.5G/NS 100ML 4.5 GM/100 ML BAG IVPB ×2 (00:50→06:25)
[2023-02-21 05:24] LABS: Basophils Percent Auto 0.4 % (0.2-1.2); Eosinophils Absolute Auto 0.3 K/mm3 (0-0.3); Eosinophils Percent Auto 4.6 % (0-4.4); Hematocrit 37.7 % (37.0-47.0); Hemoglobin 11.7 g/dL (12.0-15.0); Immature Granulocyte Absolute 0.04 K/mm3 (0.00-0.031); Immature Granulocyte Percent A 0.7 % (0-0.5); Lymphocytes Absolute Auto 0.91 K/mm3 (0.9-3.2); Lymphocytes Percent Auto 16.2 % (18.3-44.2); Mean Corpuscular Hemoglobin 33.1 pg (26-34); Mean Corpuscular Volume 106.5 fl (80-100); Mean Platelet Volume 9.6 fl (7.4-10.4); Monocytes Absolute Auto 0.5 K/mm3 (0.1-0.6); Monocytes Percent Auto 8.7 % (2.6-8.5); Neutrophils Absolute Auto 3.9 K/mm3 (1.3-6.7); Neutrophils Percent Auto 69.4 % (45.5-73.1); Platelet Count Result 191 k/mm3 (150-375); Red Blood Count 3.54 M/mm3 (4.2-5.4); Red Cell Distribution Width 14.8 % (11.5-14.5); White Blood Count 5.6 K/mm3 (4.5-10.0)
[2023-02-21 05:33] LABS: Blood Urea Nitrogen 24 mg/dL (7-17); Calcium 8.2 mg/dL (8.4-10.2); Carbon Dioxide > 40 mmol/L (22-30); Chloride 95 mmol/L (98-107); Estimated CRCL calculation 51 ml/min; Estimated Glomerular Filt Rate 60; Glucose 85 mg/dL (65-110); Potassium 3.2 mmol/L (3.4-5.0); Sodium 140 mmol/L (137-145)
[2023-02-21] MEDS: LEVOTHYROXINE SODIUM 75 MCG TABLET PO (06:24)
[2023-02-21] MEDS: clonazePAM (*CRX) 0.5 MG TABLET 1 MG PO (06:24)
[2023-02-21] MEDS: LEVOTHYROXINE SODIUM 100 MCG TABLET PO (06:24)
[2023-02-21] MEDS: oxyCODONE HCL (*CRX) 5 MG TAB IR PO ×2 (06:24→16:48)
[2023-02-21] MEDS: buPROPion HCL SR (12 HR) 150 MG TAB PO ×2 (08:28→20:59)
[2023-02-21] MEDS: METOPROLOL SUCCINATE EXT REL 25 MG TABCR PO (08:28)
[2023-02-21] MEDS: FERROUS GLUCONATE 324 MG TABLET 648 MG BY MOUTH (08:28)
[2023-02-21] MEDS: OPTI-GEN TAB 2 TABLET PO (08:28)
[2023-02-21] MEDS: MIRABEGRON 25 MG ER TABLET PO (08:29)
[2023-02-21] MEDS: FUROSEMIDE INJ 40 MG/4 ML VIAL IV PUSH (08:29)
[2023-02-21] MEDS: LORATADINE 10 MG TABLET PO (08:29)
[2023-02-21] MEDS: GABAPENTIN 100 MG CAPSULE PO (08:29)
[2023-02-21] MEDS: dilTIAZem HCL CD 180 MG CAP.24HR PO (08:29)
[2023-02-21] MEDS: methocarbamoL 750 MG TABLET PO ×3 (08:29→16:48)
[2023-02-21] MEDS: ASCORBIC ACID 500 MG TABLET PO ×2 (08:29→16:48)
[2023-02-21] MEDS: ACETAMINOPHEN 500 MG TABLET 1000 MG PO (08:32)
--- NOTE | 2023-02-21 09:47 | PCPTNOTE ---
Attempted to see for PT however patient having wound dressing change. PT will follow up at later time.
--- NOTE | 2023-02-21 10:16 | PM.CNGS ---
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 On exam today, there is no evidence of any acute issues with this wound, such as abscess or surrounding cellulitis. She has dealt with this wound infection for over 20 years and is on chronic oral antibiotics. No indication for any urgent surgical intervention at this time. Would recommend to continue local wound care and could consider restarting her oral antibiotics for the wound infection. She is stable to discharge from a surgical standpoint. She is morbidly obese with multiple comorbidities that make her a poor surgical candidate, and it is unlikely she would survive an extensive surgery to remove her old mesh. She can continue to follow with wound care in the care home facility. We will sign off and please call with any further surgical concerns. (2) Acute on chronic diastolic congestive heart failure: Code(s): I50.33 - Acute on chronic diastolic (congestive) heart failure Status: Acute (3) Persistent atrial fibrillation: Code(s): I48.19 - Other persistent atrial fibrillation Status: Acute (4) Chronic anticoagulation: Code(s): Z79.01 - assisted (current) use of anticoagulants Status: Acute (5) CHARLES (obstructive sleep apnea): Code(s): G47.33 - Obstructive sleep apnea (adult) (pediatric) Status: Acute (6) Morbid obesity with BMI of 50.0-59.9, adult: Code(s): E66.01 - Morbid (severe) obesity due to excess calories; Z68.43 - Body mass index [BMI] 50.0-59.9, adult Status: Acute Plan I have discussed the patient's case and plan of care with Dr. Méndez. History of Present Illness Consult details Consult date: 02/21/23 Reason for consult: other (Nonhealing abdominal wound) Requesting physician: Anita Rust MD Narrative: This is an 82-year-old woman who we have been asked to see in surgical consultation for a nonhealing chronic abdominal wound. She was admitted to the hospital 3 days ago for an acute CHF exacerbation and acute on chronic respiratory failure. She has been diuresed and managed in the IMU. She was found to have a chronic draining abdominal wound, and subsequently wound care was consulted. They evaluated the wound on 02/18/2023, which appeared stable at that time and started mupirocin ointment with gauze dressing changes. Today, the hospitalist consulted our service for evaluation of the chronic abdominal wound. She is now seen in the IMU. She has been dealing with this wound off and on for over 20 years. She reportedly had a ventral hernia repair with mesh 25 years ago, and after that surgery she had a ruptured ovarian cyst with subsequent total abdominal hysterectomy. She had a wound infection and dealt with that chronic wound for a long time that eventually healed about 15 years ago. She used to follow wound care at [facility] but has not seen a provider for her wound in many years. She lived at home with her and he would help care for the wound at home until she was moved to the care home facility for rehab about a month ago. After the wound healed, she did not have issues again until about 5 years ago. She noticed again an open wound and has been dealing with it ever since. She states wound care at the SNF had been putting an ointment on the wound and covering it with gauze daily. She was previously taking doxycycline daily for this chronic wound, which has not been given to her since being at the care home facility. She denies any abdominal pain, redness, or swelling. Denies any fevers. Review of Systems Review of Systems: All systems reviewed & are unremarkable except as noted in HPI and below PMFSH Past Medical History Medical History (Reviewed 02/21/23 @ 10:40 by Naomy Manzo
--- NOTE | 2023-02-21 10:30 | PM.IMPN ---
Progress Note: A&P Assessment and Plan (1) Non-healing wound: Status: Acute (2) Acute on chronic diastolic congestive heart failure: Code(s): I50.33 - Acute on chronic diastolic (congestive) heart failure Status: Acute (3) Hypothyroidism: Code(s): E03.9 - Hypothyroidism, unspecified Status: Acute (4) CHARLES (obstructive sleep apnea): Code(s): G47.33 - Obstructive sleep apnea (adult) (pediatric) Status: Acute (5) Persistent atrial fibrillation: Code(s): I48.19 - Other persistent atrial fibrillation Status: Acute Plan 82F w/ PMH morbid obesity, CHARLES, a fib on AC, HTN, HLD, hypothyroidism, HFpEF, chronic respiratory failure with hypoxia and hypercarbia, and more presenting with SOB and acute on chronic CHF exacerbation. 1) acute on chronic hypoxic respiratory failure - back to baseline. CTM. 2) acute on chronic decompensation of HFpEF - back to baseline. 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 was on doxycycline for 15+ years. Reviewed ID notes from Dr. Cinthya Pang at [facility]. Mesh remains in, has been incidence of abscess and infection over time, now in a stable chronic state. 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 Seeing that she has been off of it and it was draining pus, I would agree with restarting doxy. Gen surgery consulted, they reported there is no way they would perform surgery on that, and have no further recommendations. Pt is otherwise nontoxic/not septic. 6) deconditioning - 2/2 to multiple comorbidities and exacerbation of heart failure. pt reports previously able to walk 10 steps, now she is unable to even transfer from chair to standing due to her SOB. acute rehab is certainly going to help her improve to a better functional status. she is also at risk for falls and injury and further clinical deterioration without rehab. spoke with [facility] peer to peer and was denied. relayed this to case mgmt, expedited appeal will be processed. FEN: saline lock IV GI prophylaxis: none DVT prophylaxis: xarelto Lines:pIV Code Status: Full Code Dispo: Stable, awaiting insurance auth to be d/c to SNF for rehab. More than 35 minutes spent on chart review, patient interaction and assessment and plan. Subjective Date/time seen: 02/21/23 10:30 Interval history: NAOE. spent 15 minutes talking to peer to peer with [employer], 15 minutes reviewing infectious disease notes, 15 minutes speaking to general surgery and case mgmt. pt w/o complaints. Review of Systems Cardiovascular: Cardiovascular: Denies chest pain and Denies dyspnea Respiratory: Respiratory: Denies cough and Denies dyspnea Gastrointestinal: Gastrointestinal: Denies abdominal pain and Denies vomiting Exam Const: General: no acute distress, alert and Physically active Resp: Effort & Inspection: normal respiratory effort Auscultation: clear to auscultation bilaterally Cardio: Rate: regular rate Rhythm: regular rhythm Heart sounds: S1 normal heart sound present and S2 normal heart sound present GI: Inspection: non-distended GI Palp: No abdominal tenderness Auscultation: normal bowel sounds Extrem: Right upper extremity: no edema Objective Data Vital Signs Vital Signs: Vital Signs - 24 hr 02/20/23 11:58 02/20/23 15:59 02/20/23 12:00 Temperature 98 F 97.8 F Pulse Rate 114 H 84 Respiratory Rate 20 22 H Blood Pressure 149/95 H 152/91 H Pulse Oximetry 99 99 99 Oxygen Delivery Nasal Cannula Oxygen Flow Rate 4 Fraction of Inspired Oxygen 02/20/23 16:00 02/20/23 12:00 02/20/23 14:00 Temperature Pulse Rate 98 85 Respiratory Rate Blood Pressure
[2023-02-21] MEDS: DOXYCYCLINE HYCLATE 100 MG TABLET PO ×2 (12:39→21:00)
[2023-02-21] MEDS: RIVAROXABAN 20 MG TABLET PO (16:48)
--- NOTE | 2023-02-21 18:08 | PC.NURSE ---
This patient, Michelle Rogel, was transferred to [[facility] ] on 02/21/23 at 1808. Personal belongings sent with patient. Report given to [ Marshal]. Appropriate documentation sent with patient.
--- NOTE | 2023-02-21 18:15 | PC.NURSE ---
This patient, Michelle Rogel, was received from IMU [facility] on 02/21/23 at 1815. Patient/family oriented to unit policies and routines
[2023-02-21] MEDS: GABAPENTIN 400 MG CAPSULE PO (21:00)
[2023-02-21] MEDS: FAMOTIDINE 20 MG TABLET 40 MG PO (21:00)
[2023-02-21] MEDS: MIRTAZAPINE SOLTAB 15 MG TAB.DISPER PO (21:00)
[2023-02-21] MEDS: PRAMIPEXOLE 0.25 MG TABLET PO (21:00)
[2023-02-21] MEDS: ATORVASTATIN 40 MG TABLET PO (21:00)
[2023-02-21] MEDS: MUPIROCIN 2% OINT 22 GM TUBE 1 APPLIC TOPICAL (21:02)
[2023-02-22] VITALS (7 sets, daily range): BP systolic 120–128; BP diastolic 81–85; PULSE 70–85; RESP 17–18; TEMP 36.3–36.4; O2SAT 95–100
[2023-02-22] MEDS: traZODone HCL 50 MG TABLET 200 MG PO (00:35)
[2023-02-22] MEDS: oxyCODONE HCL (*CRX) 5 MG TAB IR PO ×2 (01:38→10:17)
[2023-02-22 05:41] LABS: Basophils Percent Auto 0.5 % (0.2-1.2); Eosinophils Absolute Auto 0.3 K/mm3 (0-0.3); Eosinophils Percent Auto 5.1 % (0-4.4); Hematocrit 38.7 % (37.0-47.0); Immature Granulocyte Absolute 0.05 K/mm3 (0.00-0.031); Immature Granulocyte Percent A 0.9 % (0-0.5); Lymphocytes Absolute Auto 1.04 K/mm3 (0.9-3.2); Lymphocytes Percent Auto 18.3 % (18.3-44.2); Mean Corpuscular Hemoglobin 32.7 pg (26-34); Mean Corpuscular Volume 105.4 fl (80-100); Mean Platelet Volume 9.6 fl (7.4-10.4); Monocytes Absolute Auto 0.4 K/mm3 (0.1-0.6); Neutrophils Absolute Auto 3.9 K/mm3 (1.3-6.7); Neutrophils Percent Auto 68.2 % (45.5-73.1); Platelet Count Result 203 k/mm3 (150-375); Red Blood Count 3.67 M/mm3 (4.2-5.4); Red Cell Distribution Width 14.7 % (11.5-14.5); White Blood Count 5.7 K/mm3 (4.5-10.0)
[2023-02-22 06:06] LABS: Blood Urea Nitrogen 22 mg/dL (7-17); Calcium 8.5 mg/dL (8.4-10.2); Carbon Dioxide > 40 mmol/L (22-30); Chloride 95 mmol/L (98-107); Estimated CRCL calculation 65 ml/min; Estimated Glomerular Filt Rate > 60; Glucose 85 mg/dL (65-110); Potassium 3.9 mmol/L (3.4-5.0); Sodium 138 mmol/L (137-145)
[2023-02-22] MEDS: clonazePAM (*CRX) 0.5 MG TABLET 1 MG PO (06:25)
[2023-02-22] MEDS: LEVOTHYROXINE SODIUM 75 MCG TABLET PO (06:26)
[2023-02-22] MEDS: LEVOTHYROXINE SODIUM 100 MCG TABLET PO (06:26)
[2023-02-22] MEDS: DOXYCYCLINE HYCLATE 100 MG TABLET PO (08:09)
[2023-02-22] MEDS: LORATADINE 10 MG TABLET PO (08:09)
[2023-02-22] MEDS: dilTIAZem HCL CD 180 MG CAP.24HR PO (08:09)
[2023-02-22] MEDS: methocarbamoL 750 MG TABLET PO ×2 (08:09→12:05)
[2023-02-22] MEDS: METOPROLOL SUCCINATE EXT REL 25 MG TABCR PO (08:09)
[2023-02-22] MEDS: GABAPENTIN 100 MG CAPSULE PO (08:11)
[2023-02-22] MEDS: OPTI-GEN TAB 2 TABLET PO (08:11)
[2023-02-22] MEDS: ASCORBIC ACID 500 MG TABLET PO (08:11)
[2023-02-22] MEDS: buPROPion HCL SR (12 HR) 150 MG TAB PO (08:11)
[2023-02-22] MEDS: FUROSEMIDE INJ 40 MG/4 ML VIAL IV PUSH (08:11)
[2023-02-22] MEDS: MIRABEGRON 25 MG ER TABLET PO (08:12)
--- NOTE | 2023-02-22 09:26 | PM.IMPN ---
Progress Note: A&P Assessment and Plan (1) Morbid obesity with BMI of 50.0-59.9, adult: Code(s): E66.01 - Morbid (severe) obesity due to excess calories; Z68.43 - Body mass index [BMI] 50.0-59.9, adult Status: Acute (2) Non-healing wound: Status: Acute (3) Acute on chronic diastolic congestive heart failure: Code(s): I50.33 - Acute on chronic diastolic (congestive) heart failure Status: Acute (4) Chronic anticoagulation: Code(s): Z79.01 - [facility] (current) use of anticoagulants Status: Acute (5) Persistent atrial fibrillation: Code(s): I48.19 - Other persistent atrial fibrillation Status: Acute (6) Hypothyroidism: Code(s): E03.9 - Hypothyroidism, unspecified Status: Acute (7) CHARLES (obstructive sleep apnea): Code(s): G47.33 - Obstructive sleep apnea (adult) (pediatric) Status: Acute Plan 82F w/ PMH morbid obesity, CHARLES, a fib on AC, HTN, HLD, hypothyroidism, HFpEF, chronic respiratory failure with hypoxia and hypercarbia, and more presenting with SOB and acute on chronic CHF exacerbation. 1) acute on chronic hypoxic respiratory failure - back to baseline. CTM. 2) acute on chronic decompensation of HFpEF - back to baseline. 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 was on doxycycline for 15+ years. Reviewed ID notes from Dr. Cinthya Pang at [facility]. Mesh remains in, has been incidence of abscess and infection over time, now in a stable chronic state. 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 Seeing that she has been off of it and it was draining pus, I would agree with restarting doxy. Gen surgery consulted, they reported there is no way they would perform surgery on that, and have no further recommendations. Pt is otherwise nontoxic/not septic. 6) deconditioning - 2/2 to multiple comorbidities and exacerbation of heart failure. pt reports previously able to walk 10 steps, now she is unable to even transfer from chair to standing due to her SOB. acute rehab is certainly going to help her improve to a better functional status. she is also at risk for falls and injury and further clinical deterioration without rehab. spoke with [facility] peer to peer and was denied. relayed this to case mgmt, expedited appeal will be processed. FEN: saline lock IV GI prophylaxis: none DVT prophylaxis: xarelto Lines:pIV Code Status: Full Code Dispo: Stable, awaiting insurance auth to be d/c to SNF for rehab. Subjective Date/time seen: 02/22/23 09:26 Interval history: NAOE. pt is without shortness of breath except on exertion Review of Systems Cardiovascular: Cardiovascular: Denies chest pain and Denies dyspnea Respiratory: Respiratory: Denies cough and Denies dyspnea Gastrointestinal: Gastrointestinal: Denies abdominal pain and Denies vomiting Exam Const: General: no acute distress, alert and Physically active Resp: Effort & Inspection: normal respiratory effort Auscultation: clear to auscultation bilaterally Cardio: Rate: regular rate Rhythm: regular rhythm Heart sounds: S1 normal heart sound present and S2 normal heart sound present GI: Inspection: non-distended GI Palp: No abdominal tenderness Auscultation: normal bowel sounds Extrem: Right upper extremity: no edema Objective Data Vital Signs Vital Signs: Vital Signs - 24 hr 02/21/23 10:00 02/21/23 11:27 02/21/23 12:00 Temperature 97.4 F L Pulse Rate 82 78 Respiratory Rate 20 Blood Pressure 110/78 Pulse Oximetry 98 99 Oxygen Delivery Nasal Cannula Oxygen Flow Rate 4 Fraction of Inspired Oxygen 02/21/23 12:00 02/21/23 14:00 02/21/23 16:00 Temp
[2023-02-22] MEDS: FERROUS GLUCONATE 324 MG TABLET 648 MG BY MOUTH (10:18)
[2023-02-22] MEDS: MUPIROCIN 2% OINT 22 GM TUBE 1 APPLIC TOPICAL (10:18)
--- NOTE | 2023-02-22 14:15 | PM.DS ---
DS: Admitting Diagnosis Discharge Date 02/22 Admitting Diagnosis SOB DS: Discharge Diagnosis Discharge Diagnosis (1) Morbid obesity with BMI of 50.0-59.9, adult: Code(s): E66.01 - Morbid (severe) obesity due to excess calories; Z68.43 - Body mass index [BMI] 50.0-59.9, adult Status: Acute (2) Non-healing wound: Status: Acute (3) Acute on chronic diastolic congestive heart failure: Code(s): I50.33 - Acute on chronic diastolic (congestive) heart failure Status: Acute (4) Hypothyroidism: Code(s): E03.9 - Hypothyroidism, unspecified Status: Acute (5) CHARLES (obstructive sleep apnea): Code(s): G47.33 - Obstructive sleep apnea (adult) (pediatric) Status: Acute DS: Summary Hospital Course Hospital Course: 82F w/ PMH morbid obesity, CHARLES, a fib on AC, HTN, HLD, hypothyroidism, HFpEF, chronic respiratory failure with hypoxia and hypercarbia, and more presenting with SOB and acute on chronic CHF exacerbation. She was treated with IV lasix and returned to her baseline of 4 L NC. her PO lasix regimen was increased from 20mg bid to 40mg qam and 20mg qhs. her chronic open abdominal wound was evaluated and her doxycycline was restarted. refer to ID notes from Dr. Cinthya Pang at [facility]. she is in stable condition. discharged back to SNF for rehab. Time Spent with Patient Time attestation: Total time spent providing and/or coordinating discharge services: Exam Const: General: cooperative and no acute distress Resp: Effort & Inspection: normal respiratory effort Auscultation: clear to auscultation bilaterally Cardio: Rate: regular rate Rhythm: regular rhythm Heart sounds: S1 normal heart sound present and S2 normal heart sound present GI: GI Palp: No abdominal tenderness Auscultation: normal bowel sounds DS: Data Data Completed and Pending Labs on day of discharge: Labs from last 24 hours 02/22/23 05:14 WBC 5.7 RBC 3.67 L Hgb 12.0 Hct 38.7 MCV 105.4 H MCH 32.7 MCHC 31.0 L RDW 14.7 H Plt Count 203 MPV 9.6 Immature Gran % (Auto) 0.9 H Neut % (Auto) 68.2 Lymph % (Auto) 18.3 Cross % (Auto) 7.0 Eos % (Auto) 5.1 H Baso % (Auto) 0.5 Lymph # (Auto) 1.04 Cross # (Auto) 0.4 Eos # (Auto) 0.3 Baso # (Auto) 0.0 Abs Immat Gran (auto) 0.05 H Absolute Neuts (auto) 3.9 Absolute Nucleated RBC 0.0 Nucleated RBC % 0.0 Sodium 138 Potassium 3.9 Chloride 95 L Carbon Dioxide > 40 H Anion Gap BUN 22 H Creatinine 0.70 Estim Creat Clear Calc 65 Estimated GFR > 60 Glucose 85 Calcium 8.5 Preliminary micro results at discharge 02/17/23 13:18 Blood Culture - Preliminary Blood 02/17/23 15:10 Blood Culture - Preliminary Blood Discharge Plan Discharge Attending physician on discharge: Anita Rust Consulting providers: Jose Méndez Discharging Clinician: Anita Rust Patient Disposition: SNF Activity: no preference Diet: as tolerated and heart healthy Patient Instructions: Rivaroxaban (By mouth), Heart Failure (ED), Acute Respiratory Failure (GEN) Stand Alone Forms: General Discharge Information Discharge Medications: New doxycycline hyclate 100 mg Tablet 100 mg PO Q12HR Qty: 90 0RF furosemide [Lasix] 40 mg tablet 40 mg PO DAILY Qty: 90 0RF furosemide [Lasix] 20 mg tablet 20 mg PO QHS Qty: 90 0RF Continued famotidine 40 mg tablet 40 mg PO HS pramipexole 0.25 mg tablet 0.25 mg PO HS Myrbetriq 25 mg tablet extended release 24 hr 25 mg PO DAILY calcium carbonate-vitamin D3 600 mg(1,500mg) -500 unit Capsule 1 cap PO DAILY Aloe [place] Antifungal (micon) 2 % Ointment 1 applic topical Q12HR 30 Days 0RF cetirizine 10 mg Tablet 10 mg PO DAILY acetaminophen [Tylenol Extra Strength] 500 mg Tablet 1,000 mg PO Q6H PRN (Reason: Pain) ascorbic acid (vitamin C) 500 mg Tablet 500 mg PO BID hydrocortiso
--- NOTE | 2023-02-22 14:45 | PCPTNOTE ---
Patient declined PT session this date due to anticipated discharge.
== END 2023-02-22 16:45 | DRG 189 ==
LOC: ANHED 13:17 → ANHIMU 19:19 → ANH3MED 02-22 14:15 → ANHIMU 02-25 09:46
PROVIDERS: Chiropractor; Emergency Medicine; Physician Assistant; Admitting Provider Internal Medicine; Emergency Provider Emergency Medicine; Visit Provider General Practice
DX: J96.21 Acute and chronic respiratory failure with hypoxia (principal); I50.33 Acute on chronic diastolic (congestive) heart failure; Z68.43 Body mass index [BMI] 50.0-59.9, adult; I48.19 Other persistent atrial fibrillation; E78.5 Hyperlipidemia, unspecified; E66.01 Morbid (severe) obesity due to excess calories; E03.9 Hypothyroidism, unspecified; F41.9 Anxiety disorder, unspecified; F32.A Depression, unspecified; G25.81 Restless legs syndrome; G47.33 Obstructive sleep apnea (adult) (pediatric); G89.4 Chronic pain syndrome; H35.30 Unspecified macular degeneration; I11.0 Hypertensive heart disease with heart failure; J44.9 Chronic obstructive pulmonary disease, unspecified; K21.9 Gastro-esophageal reflux disease without esophagitis; S31.109A Unspecified open wound of abdominal wall, unspecified quadrant without penetration into peritoneal cavity, initial encounter; X58.XXXA Exposure to other specified factors, initial encounter; Z20.822 Contact with and (suspected) exposure to COVID-19; Z23 Encounter for immunization; Z79.01 Long term (current) use of anticoagulants; Z85.850 Personal history of malignant neoplasm of thyroid; Z90.49 Acquired absence of other specified parts of digestive tract; Z98.41 Cataract extraction status, right eye; Z98.42 Cataract extraction status, left eye; Z90.89 Acquired absence of other organs; Z90.710 Acquired absence of both cervix and uterus; Z99.89 Dependence on other enabling machines and devices; Z86.16 Personal history of COVID-19; Z96.653 Presence of artificial knee joint, bilateral
CPT/HCPCS: 36415; 36600; 71045; 71250; 80048; 80053; 82375; 82805; 83050; 83735; 83880; 84443; 84484; 85025; 85027; 85610; 85730; 87040; 87070; 87147; 87181; 87186; 87205; 87636; 90471; 90694; 93005; 94002; 94003; 97110; 97161; 97165; 97530; 97535; 99285; A9270; G0008; J1940; J2543

== ENCOUNTER 2023-05-17 18:22 | Inpatient (IN) | payer MEDICARE, SELFPAY ==
--- NOTE | ~2023-05-17 | XR_ITS ---
EXAMINATION: XR chest 1V portable DATE: 05/23/2023 15:46 INDICATION: Shortness of breath. TECHNIQUE: A single frontal view of the chest was obtained. COMPARISON: Chest single view 05/21/2023 FINDINGS: There is mild atelectasis in the lower lung zones. No pleural effusion or pneumothorax. Car diomegaly is noted. There are changes of posterior fusion procedure in lumbar spine. IMPRESSION: 1. Mild atelectasis in the lower lung zones. 2. Cardiomegaly. Reviewed, dictated and finalized at location A. [employer]
--- NOTE | ~2023-05-17 | XR_ITS ---
EXAMINATION: XR chest 1V portable DATE: 05/17/2023 19:57 INDICATION: Shortness of breath. TECHNIQUE: A single frontal view of the chest was obtained. COMPARISON: Chest single view 02/20/2023 FINDINGS: There is a diffuse interstitial pattern in the lungs. There are mild airspace opacities in the mid and lower lung zones. There are small pleural effusions. No pneumothorax. Cardiomegaly is not ed. IMPRESSION: 1. Diffuse lung disease, likely moderate pulmonary edema. 2. Small pleural effusions. 3. Cardiomegaly. Reviewed, dictated and finalized at location E. WORKER
--- NOTE | ~2023-05-17 | XR_ITS ---
EXAMINATION: XR chest 1V portable DATE: 05/21/2023 13:00 INDICATION: Cough. TECHNIQUE: A single frontal view of the chest was obtained. COMPARISON: Chest single view 05/17/2023, chest CT 02/18/2023 FINDINGS: There are airspace opacities in the lower lung zones. No pleural effusion or pneumothorax. Cardiomegaly is noted. There are changes of posterior fusion procedure in lumbar spine. There are chris gical clips from thyroidectomy. IMPRESSION: 1. Airspace opacities in the lower lung zones, consistent with atelectasis versus pneumonia. 2. Cardiomegaly. Reviewed, dictated and finalized at location A. [employer] IMPRESSION: 1. Airspace opacities in the lower lung zones, consistent with atelectasis vers us pneumonia. 2. Cardiomegaly.
[2023-05-17 18:30] VITALS: BP 154/101; PULSE 96; RESP 16; TEMP 36.6; O2SAT 96
[2023-05-17 18:40] VITALS: O2SAT 96
[2023-05-17 18:59] VITALS: BP 137/84; PULSE 83; RESP 14; O2SAT 96
--- NOTE | 2023-05-17 19:14 | PC.NURSE ---
Report given to Alissa LEON, all questions answered
--- NOTE | 2023-05-17 19:39 | ECG_ITS ---
Measurements Intervals [place] Rate: 87 P: PA: 0 QRS: 68 QRSD: 75 T: 49 QT: 357 QTc: 431 Interpretive Statements ATRIAL FIBRILLATION BASELINE ARTIFACT- III, V2-V3 ABNORMAL ECG COMPARED TO ECG 02/17/2023 12:53:32 HEART RATE HAS DECREASED Electronically Signed On 05-18-2023 8:38:50 PROGRAM MANAGEMENT SPECIALIST by Saji Lyons D.O.
--- NOTE | 2023-05-17 19:52 | ED.GENADULT ---
HPI - General Adult General Chief complaint: Shortness of Breath/Dyspnea Stated complaint: sob Time Seen by Provider: 05/17/23 19:13 History of Present Illness HPI narrative: patient is a 82-year-old female who presents emergency department with chief complaint of shortness of breath. Patient has prior history of congestive heart failure and is on chronic 4 L of nasal cannula oxygen. The patient reports that she has had difficulty with getting up and moving around and has not been taking her Lasix over the last week because she has been unable to get up and go to the bathroom and was afraid she would urinate on herself Related Data Home Medications Medication Instructions Recorded Confirmed atorvastatin 40 mg tablet 40 mg PO HS 02/16/20 02/17/23 bupropion HCl 150 mg tablet,12 hr 150 mg PO BID 02/16/20 02/17/23 sustained-release clonazepam 1 mg tablet 1 mg PO DAILY PRN Anxiety 02/16/20 02/18/23 gabapentin 100 mg capsule 100 mg PO QAM 02/16/20 02/17/23 mirtazapine 15 mg disintegrating 15 mg PO HS 02/16/20 02/17/23 tablet rivaroxaban 20 mg tablet (Xarelto) 20 mg PO DAILY 02/16/20 02/17/23 vit C 250 mg-vit E 90 mg-zinc 40 2 tablet PO DAILY 02/16/20 02/17/23 mg-copper 1 [id number] capsule (PreserVision AREDS-2) calcium carbonate 600 mg-vitamin 1 cap PO DAILY 10/15/20 02/17/23 D3 12.5 mcg (500 unit) capsule famotidine 40 mg tablet 40 mg PO HS 10/15/20 02/17/23 mirabegron 25 mg tablet,extended 25 mg PO DAILY 10/15/20 02/17/23 release 24 hr (Myrbetriq) pramipexole 0.25 mg tablet 0.25 mg PO HS 10/15/20 02/17/23 Fleet Enema 1 ea RECTAL DAILY PRN Constipation 01/06/23 02/17/23 acetaminophen 500 mg tablet 1,000 mg PO Q6H PRN Pain 01/06/23 02/17/23 (Tylenol Extra Strength) ascorbic acid (vitamin C) 500 mg 500 mg PO BID 01/06/23 02/17/23 tablet cetirizine 10 mg tablet 10 mg PO DAILY 01/06/23 02/17/23 ferrous gluconate 324 mg (38 mg See Rx Instructions .Route .COMPLEX 01/06/23 02/17/23 iron) tablet gabapentin 100 mg capsule 400 mg PO HS 01/06/23 02/17/23 hydrocortisone 2.5 % rectal cream 1 ea RECTAL Q12H PRN Hemorrhoids 01/06/23 02/17/23 with applicator levothyroxine 150 mcg capsule 175 mcg PO QAM 01/06/23 02/17/23 methocarbamol 750 mg PO TID 01/06/23 02/17/23 metoprolol succinate 25 mg PO DAILY 01/06/23 02/17/23 diltiazem HCl 180 mg capsule,24 180 mg PO DAILY 02/17/23 02/17/23 hr,extended release oxycodone 5 mg tablet 5 mg PO Q6H PRN Pain, Moderate 02/17/23 02/17/23 trazodone 100 mg tablet 200 mg PO HS PRN Insomnia 02/21/23 02/21/23 Allergies Allergy/AdvReac Type Severity Reaction Status Date / Time Methotrexate Analogues Allergy Unknown mouth sores Verified 02/17/23 13:43 Sulfa (Sulfonamide Allergy Unknown unknown Verified 02/17/23 13:43 Antibiotics) Review of Systems Review of Systems: A 10 system review of systems was completed on the patient and is negative except for what is stated in the HPI. Nursing and ancillary documentation was reviewed. [facility] Past Medical History Medical History Anemia Anxiety Chronic anticoagulation Chronic diastolic congestive heart failure Echocardiogram in October 2018 demonstrated hyperdynamic left ventricular function with an ejection fraction of 71%, moderate left atrial enlargement, and grade 2 diastolic dysfunction. Chronic pain syndrome Chronic wound infection of abdomen On long-term doxycycline b.i.d. Current use of fci anticoagulation On Xarelto for stroke prophylaxis given paroxysmal atrial fibrillation. Depression Essential hypertension Gastroesophageal reflux disease Hyperlipidemia Macular degeneration Morbid obesity Obstructive sleep apnea on CPAP Overactive bladder Persistent atrial fibrillation Pneumonia due to COVID-19 virus (03/2020) Postsurgical hypothyroidism Restless leg syndrome Shingles Thyroid cancer Status post thyroidectomy. Surgical History Surgical
[2023-05-17] MEDS: FUROSEMIDE INJ 40 MG/4 ML VIAL IV PUSH (21:38)
[2023-05-17 21:39] LABS: Basophils Percent Auto 0.3 % (0.2-1.2); Eosinophils Absolute Auto 0.1 K/mm3 (0-0.3); Eosinophils Percent Auto 0.8 % (0-4.4); Hematocrit 42.5 % (37.0-47.0); Hemoglobin 13.1 g/dL (12.0-15.0); Immature Granulocyte Absolute 0.04 K/mm3 (0.00-0.031); Immature Granulocyte Percent A 0.4 % (0-0.5); Lymphocytes Percent Auto 6.6 % (18.3-44.2); Mean Corpuscular HGB Conc 30.8 g/dl (32-36); Mean Corpuscular Volume 103.7 fl (80-100); Mean Platelet Volume 10.2 fl (7.4-10.4); Monocytes Absolute Auto 0.6 K/mm3 (0.1-0.6); Neutrophils Absolute Auto 7.7 K/mm3 (1.3-6.7); Neutrophils Percent Auto 84.9 % (45.5-73.1); Platelet Count Result 204 k/mm3 (150-375); Red Cell Distribution Width 14.8 % (11.5-14.5); White Blood Count 9.1 K/mm3 (4.5-10.0)
[2023-05-17 21:48] LABS: INR 1.4; Prothrombin Time 18.1 Seconds (11.1-14.7)
[2023-05-17 21:49] LABS: Partial Thromboplastin Time 33.3 SECONDS (22.3-36.8)
[2023-05-17 21:51] LABS: Alanine Aminotransferase 19 U/L (6-35); Albumin Level 4.2 g/dL (3.5-5.1); Alkaline Phosphatase 178 U/L (38-126); Anion Gap 5 mmol/L (8-16); Aspartate Amino Transferase 31 U/L (14-36); Bilirubin,Total 0.8 mg/dL (0.2-1.3); Blood Urea Nitrogen 17 mg/dL (7-17); Calcium 9.1 mg/dL (8.4-10.2); Carbon Dioxide 35 mmol/L (22-30); Chloride 97 mmol/L (98-107); Estimated CRCL calculation 61 ml/min; Estimated Glomerular Filt Rate > 60; Glucose 98 mg/dL (65-110); Lipase 39 U/L (23-300); Magnesium 2.2 mg/dL (1.6-2.3); Potassium 5.2 mmol/L (3.4-5.0); Sodium 137 mmol/L (137-145)
[2023-05-17 21:52] LABS: Lactic Acid Reflex 0.9 mmol/L (0.7-2.0)
[2023-05-17 22:02] LABS: NT Pro B Type Natriuretic Pept 2560 pg/mL (19.9-100); Troponin I < 0.012 ng/mL (0.000-0.034)
[2023-05-17 22:07] LABS: Procalcitonin 0.1 ng/mL
[2023-05-18] VITALS (14 sets, daily range): BP systolic 114–141; BP diastolic 53–93; PULSE 68–101; RESP 15–18; TEMP 36.4–36.9; O2SAT 93–100; BMI 47.7
--- NOTE | 2023-05-18 00:22 | PC.NURSE ---
this RN went to pt room and pt IV was no longer in place. Pt reported her arm got sweaty causing the iv to slip out
[2023-05-18 00:37] LABS: Influenza A QL RT-PCR Negative (Negative); Influenza B QL RT-PCR Negative (Negative); RSV RNA, RT-PCR Negative (Negative); SARS-CoV-2 RNA PCR Negative (Negative)
[2023-05-18 00:44] LABS: Bacteria Urine Rare /hpf; Non Pathogenic Casts 0-2; RBC Urine 0-2 /hpf (0-2); Squamous Epithelial Cell Urine None seen /hpf (Few); WBC Urine >100 /hpf
[2023-05-18 00:57] LABS: Appearance Urine Cloudy (Clear); Bilirubin Urine Negative (Negative); Color Urine Yellow (Yellow); Glucose Urine UA Negative (Negative); Ketones Urine Negative (Negative); Leukocyte Esterase Ur 3+ LEU/UL (Negative); Nitrate Urine Negative (Negative); Protein Urine Negative (Negative); Specific Grav Ur 1.006 (1.001-1.035); Urobilinogen Urine 0.2 mg/dL (<2.0)
[2023-05-18 01:04] LABS: Add Urine Microscopic? YES
--- NOTE | 2023-05-18 02:01 | ADMGEN ---
This patient, Michelle Rogel, was admitted to Medical Room 348-01. Patient/family oriented to hospital policies and general routines including ID bracelet, bed and alarms, visiting hours, pain management, procedures, bathroom and other care routines, personal items, smoking policy, room service/diet, and visiting hours. Information on how to activate the Rapid Response Team has been discussed. Patient/Family are encouraged to report perceived risks to care and to ask questions if they do not understand what they are told or what they should do.
--- NOTE | 2023-05-18 02:59 | PC.NURSE ---
CALL OUT TO DR JOVEL REGARDING CHANGES IN TELEMETRY WHEN ARRIVAL TO FLOOR. MAINTENANCE HERE TO VERIFY CPAP HOME MACHINE.
--- NOTE | 2023-05-18 04:53 | PC.NURSE ---
PERSONAL CPAP BEDSIDE. MAINTENANCE VERIFIED. RESPIRATORY CALLED TO BLEED IN OXYGEN.
--- NOTE | 2023-05-18 06:00 | ECHO_ITS ---
Patient Info Name: Michelle Rogel Age: 82 years : 1940 Gender: Female Ht: 65 in Wt: 233 lbs BSA: 2.25 m2 HR: 84 bpm BP: 141 / 93 mmHg Heart Rhythm: Atrial Fibrillation Technical Quality: Good Exam Date: 05/18/2023 9:24 AM Exam Location: Echo Lab Patient Status: Outpatient Admit Date: 05/17/2023 Staff Ordering Physician: Payam Benavides MD Administration Dean: Pam Tellez RDCS Attending Provider: Liza Natarajan DO Referring Physician: Makayla ANGELES; Exam Type: CA echo doppler color flow Study Info Indications - dyspnea , hx of chf Complete two-dimensional, color flow and Doppler transthoracic echocardiogram is performed. Summary 1. Complete two-dimensional, color flow and Doppler transthoracic echocardiogram is performed. Recommendations * Normal LV size, mild LVH, normal LV systolic function, ejection fraction about 70%. Indeterminate diastolic function. Normal RV size and systolic function. Moderate biatrial enlargement. Normal mitral valve leaflets, mild mitral regurgitation. Mild aortic valve sclerosis, mild aortic stenosis, ROGELIO 1.9 cm2; maximum velocity 1.7 m/sec, mean gradient 7 mmHg. Moderate pulmonary hypertension, RVSP 50 mmHg, mild tricuspid regurgitation. Atrial flutter/fibrillation. Left Ventricle Left ventricular chamber dimension is normal. Left ventricular systolic function is hyperdynamic, estimated at >70%. There is mildly increased left ventricular wall thickness. Left Atria Left atrial chamber dimension is moderately enlarged. Right Atria Right atrial chamber dimension is moderately enlarged. Aortic Valve There is mild aortic valve sclerosis. There is mild aortic valve stenosis with a peak velocity of 169 cm/s, mean gradient of 8 mmHg, and aortic valve area of 1.9 cm2. Pulmonic Valve The pulmonic valve is not well visualized. Mitral Valve The mitral valve has normal leaflets. There is mild mitral valve regurgitation. Tricuspid Valve The tricuspid valve leaflets are normal. Moderate pulmonary hypertension, estimated pulmonary arterial systolic pressure is 50 mmHg. Pericardium/Pleural The pericardium appears epicardial fat pad. Aorta The aortic root size at the sinus of Valsalva is normal. Left Ventricular Outflow Tract Name Value Normal LVOT 2D LVOT Diameter 1.9 cm LVOT Doppler LVOT Peak Gradient 5 mmHg LVOT Mean Gradient 3 mmHg LVOT VTI 23 cm LVOT VTI/AV VTI Ratio 0.6 LVOT Stroke Volume 68 ml LVOT CO 4.5 l/min LVOT CI 2.0 l/min/m2 Pulmonic Valve Name Value Normal RVOT Doppler RVOT Peak Gradient 0 mmHg PV Doppler PV Peak Gradient 1 mmHg Mitral Valve
--- NOTE | 2023-05-18 06:17 | PC.NURSE ---
TROPONINS DELAYED DUE TO MULTIPLE FAILED ATTEMPTS TO OBTAIN. RESHEDULED ORDER. WILL REACH OUT TO HAVE 3 HR TROPONIN DRAWN VIA VASCULAR ACCESS NURSE.
[2023-05-18 07:24] LABS: Troponin I < 0.012 ng/mL (0.000-0.034)
[2023-05-18] MEDS: FUROSEMIDE INJ 40 MG/4 ML VIAL IV PUSH ×2 (11:58→21:30)
--- NOTE | 2023-05-18 12:02 | PM.IMHP ---
H&P: HPI History of Present Illness Date/Time: 05/18/23 12:02 Chief Complaint: Shortness of breath Narrative: 82yo female with atrial fib on retirement anticoagulation, HTN, chronic respiratory failure on 4 L, CHARLES and chronic dCHF here for shortness of breath. Patient presented to the ED in November for fall and found to have a spiral fracture of the distal left femur. Patient was transfer to a tertiary care center and underwent surgical repair. She also had left wrist fracture as well. This was more complex and was not surgically repaired. Patient was transferred to a half-way facility. She was admitted here in January for CHF exacerbation and discharged back to SNF on her Lasix 40 mg daily. Was hospitalized again in February for CHF exacerbation and her Lasix was advanced 40 mg in the morning and 20 mg in the evening. She did well and was returned to her skilled facility. Patient has been doing well. She was discharged from the skilled facility about a week ago and returned home with her . Since that time she has been having trouble ?getting around . She is having trouble even sitting up without help. She has not had any falls. She has had increasing shortness of breath since being at home. She has not noted pedal edema. She has had PND but no orthopnea. She is unsure if she is having nocturia. She has urine incontinence and wears depends at bedtime. She does not check daily weights. She denies feeling forgetful but admits that she has been not taking her home medications as she should. She not provide a clear answer on why she decided not to take her home medications as prescribed. She has been compliant with the BiPAP at night with 4 L of oxygen bleed in as well as her 4 L of oxygen during the day while awake. She has some mild nausea but this has improved and eating seems to make it better. No diarrhea. No vomiting. No abdominal pain. No back pain. No dysuria or hematuria. No cough, URI symptoms, fever, chills, vision changes, hearing changes, odynophagia or dysphagia. Because of the increasing shortness of breath, she present to the emergency room for evaluation In the ED, blood pressure was 154/101. She is 96% on 4 L. EKG showed atrial fibrillation with controlled rate. CBC was unremarkable. She did have a macrocytosis noted. Potassium is 5.2. She does take supplemental potassium at home. Renal function was normal. Serum bicarb was 35. LFTs essentially normal. Her BNP was 2560. Troponin was negative x2. UA showed 3+ leuks esterase and greater than 100 white cells. Chest x-ray showed diffuse lung disease likely moderate pulmonary edema with small pleural effusions and cardiomegaly. Echocardiogram completed since admission showing the LV chamber size with hyperdynamic systolic function with EF greater than 70%. Mildly increased LV wall thickness. Indeterminate diastolic function. Normal RV size and systolic function. Moderate biatrial enlargement. Mild valvular disease. Moderate pulmonary hypertension. Patient was given a dose of Lasix and admitted for further care. Review of Systems Review of Systems: All systems reviewed & are unremarkable except as noted in HPI and below PMFSH Past Medical History Medical History Anemia Anxiety Chronic anticoagulation Chronic diastolic congestive heart failure Echocardiogram in October 2018 demonstrated hyperdynamic left ventricular function with an ejection fraction of 71%, moderate left atrial enlargement, and grade 2 diastolic dysfunction. Chronic pain syndrome Chronic wound infection of abdomen On long-term doxycycline b.i.d. Current use of retirement anticoagulation On Xarelto for stroke prophylaxis given paroxysmal atrial fibrillation. Depression Essential hypertension Gastroesophageal reflux disease Hyperlipidemia Macular degeneration Morbid obesity Obstructive sleep apnea on CPAP Overactive b
[2023-05-18] MEDS: TOLNAFTATE 1% POWDER 45 GM BTL 1 APPLIC TOPICAL ×2 (14:29→21:39)
[2023-05-18] MEDS: VALSARTAN 160 MG TABLET 320 MG PO (14:42)
[2023-05-18] MEDS: DULoxetine HCL 30 MG CAPSULE.DR PO (14:43)
[2023-05-18] MEDS: PANTOPRAZOLE 40 MG TABLET PO (14:43)
[2023-05-18] MEDS: dilTIAZem HCL CD 180 MG CAP.24HR PO (14:43)
[2023-05-18 15:18] LABS: Anion Gap 9 mmol/L (8-16); Blood Urea Nitrogen 16 mg/dL (7-17); Calcium 9.4 mg/dL (8.4-10.2); Carbon Dioxide 32 mmol/L (22-30); Chloride 96 mmol/L (98-107); Estimated CRCL calculation 65 ml/min; Estimated Glomerular Filt Rate > 60; Glucose 93 mg/dL (65-110); Sodium 137 mmol/L (137-145)
[2023-05-18 17:28] LABS: Folic Acid 7.5 ng/mL (2.76->20)
[2023-05-18] MEDS: EUCERIN CREAM 120 GM JAR 1 APPLIC TOPICAL (17:31)
[2023-05-18] MEDS: RIVAROXABAN 20 MG TABLET PO (17:36)
[2023-05-18] MEDS: buPROPion HCL SR (12 HR) 150 MG TAB PO (17:36)
[2023-05-18] MEDS: FERROUS GLUCONATE 324 MG TABLET PO (17:37)
[2023-05-18] MEDS: ASCORBIC ACID 500 MG TABLET PO (17:54)
[2023-05-18] MEDS: ATORVASTATIN 40 MG TABLET PO (21:31)
[2023-05-18] MEDS: traZODone HCL 50 MG TABLET 100 MG PO (21:31)
[2023-05-18] MEDS: FAMOTIDINE 20 MG TABLET 40 MG PO (21:31)
[2023-05-18] MEDS: GABAPENTIN 400 MG CAPSULE PO (21:31)
[2023-05-18] MEDS: DOXYCYCLINE HYCLATE 100 MG TABLET PO (21:32)
[2023-05-18] MEDS: PRAMIPEXOLE 0.25 MG TABLET 1.25 MG PO (21:32)
[2023-05-18] MEDS: MIRTAZAPINE SOLTAB 15 MG TAB.DISPER PO (21:32)
[2023-05-18] MEDS: oxyCODONE HCL (*CRX) 5 MG TAB IR PO (21:35)
[2023-05-18 22:11] LABS: Free T4 Free Thyroxine Reflex 0.99 ng/dL (0.78-2.19)
[2023-05-18 23:46] LABS: Total Triiodothyronine (T3) 0.84 NG/ML (0.97-1.69)
[2023-05-19] VITALS (14 sets, daily range): BP systolic 87–126; BP diastolic 36–69; PULSE 70–101; RESP 18–22; TEMP 36.4–36.8; O2SAT 94–100
[2023-05-19] MEDS: LEVOTHYROXINE SODIUM 150 MCG TABLET PO (06:56)
[2023-05-19] MEDS: FERROUS GLUCONATE 324 MG TABLET PO ×2 (10:33→18:13)
[2023-05-19] MEDS: GABAPENTIN 100 MG CAPSULE PO (10:33)
[2023-05-19] MEDS: DULoxetine HCL 30 MG CAPSULE.DR PO (10:33)
[2023-05-19] MEDS: buPROPion HCL SR (12 HR) 150 MG TAB PO ×2 (10:33→18:13)
[2023-05-19] MEDS: DOXYCYCLINE HYCLATE 100 MG TABLET PO ×2 (10:33→20:26)
[2023-05-19] MEDS: dilTIAZem HCL CD 180 MG CAP.24HR PO (10:33)
[2023-05-19] MEDS: PANTOPRAZOLE 40 MG TABLET PO (10:33)
[2023-05-19] MEDS: MIRABEGRON 25 MG ER TABLET PO (10:33)
[2023-05-19] MEDS: VALSARTAN 160 MG TABLET 320 MG PO (10:33)
[2023-05-19] MEDS: ASCORBIC ACID 500 MG TABLET PO ×2 (10:34→18:13)
[2023-05-19] MEDS: FUROSEMIDE INJ 40 MG/4 ML VIAL IV PUSH (10:34)
[2023-05-19] MEDS: OPTI-GEN TAB 2 TABLET PO (10:34)
[2023-05-19] MEDS: EUCERIN CREAM 120 GM JAR 1 APPLIC TOPICAL (10:36)
[2023-05-19] MEDS: TOLNAFTATE 1% POWDER 45 GM BTL 1 APPLIC TOPICAL ×2 (10:37→20:28)
--- NOTE | 2023-05-19 15:51 | PM.IMPN ---
Progress Note: A&P Assessment and Plan (1) Acute on chronic diastolic congestive heart failure: Code(s): I50.33 - Acute on chronic diastolic (congestive) heart failure Status: Acute Assessment and Plan: Patient presents with shortness of breath. CXR showing diffuse lung disease. BNP 2560 (lower than usual). She was started on IV Lasix. Echo showing EF 70%, mild LVH, indeterminate diastolic fxn, mild valvular disease and moderate pHTN. Good UOP. BP soft so will hold Lasix Repeat labs (2) Hyperkalemia: Code(s): E87.5 - Hyperkalemia Status: Acute Assessment and Plan: Potassium was elevated on admission despite normal renal function. Probably iatrogenic from oral potassium. Repeat potassium level better. Repeat (3) Tinea corporis: Code(s): B35.4 - Tinea corporis Status: Acute Assessment and Plan: Extensive intertriginous tinea. Antifungal treatment started for her significant and diffuse tinea.? Antibiotics should help case there is any mild cellulitic component to the tinea.? Continue anti-fungal treatment (4) Persistent atrial fibrillation: Code(s): I48.19 - Other persistent atrial fibrillation Status: Acute Assessment and Plan: Patietn with known AFib. Xarelto resume.? We continued her diltiazem at decreased dose given her normal blood pressure but now held given the soft BP.? Heart rate controlled. Monitor on tele (5) CHARLES (obstructive sleep apnea): Code(s): G47.33 - Obstructive sleep apnea (adult) (pediatric) Status: Acute Assessment and Plan: Stable. Continue BiPAP here.? (6) Chronic respiratory failure: Code(s): J96.10 - Chronic respiratory failure, unspecified whether with hypoxia or hypercapnia Status: Acute Assessment and Plan: She is doing well and appears back to baseline. She is stable on her 4 L which we will continue.? (7) Generalized weakness: Code(s): R53.1 - Weakness Status: Acute Assessment and Plan: Suspect weakness related to above. TSH mildly elevated but normal FT4. Folate normal. B12 level low end of normal Check MMA PT/OT (8) Wound, open, abdominal wall, anterior: Code(s): S31.109A - Unspecified open wound of abdominal wall, unspecified quadrant without penetration into peritoneal cavity, initial encounter Status: Acute Assessment and Plan: Patient with open and draining abdominal wound. This is long standing over many, many years. Will obtain a culture. Try to pack wound after it has completely drained. Continue current abx (9) Essential hypertension: Code(s): I10 - Essential (primary) hypertension Status: Chronic Assessment and Plan: Patient's blood pressure was reviewed on 05/19 Blood pressure soft felt related to diuresis Will stop Lasix. Hold losartan and Diltiazem Fluids if BP does not improve (10) UTI (urinary tract infection): Qualifiers: Hematuria presence: without hematuria Urinary tract infection type: site unspecified Qualified Code(s): N39.0 - Urinary tract infection, site not specified Code(s): N39.0 - Urinary tract infection, site not specified Status: Acute Assessment and Plan: UA is consistent with UTI. UCx collected. Rocephin started. 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 Patient slept well. No chest pain. She has minimal dyspnea on exertion when she was getting up to the chair today. She is having increased number of formed stools. Her lower abdominal wound has opened overnight and now draining. in the room states that abdominal wound has been present f
[2023-05-19 16:48] LABS: Basophils Percent Auto 0.4 % (0.2-1.2); Eosinophils Absolute Auto 0.1 K/mm3 (0-0.3); Eosinophils Percent Auto 1.2 % (0-4.4); Hematocrit 43.8 % (37.0-47.0); Hemoglobin 13.8 g/dL (12.0-15.0); Immature Granulocyte Absolute 0.06 K/mm3 (0.00-0.031); Immature Granulocyte Percent A 0.8 % (0-0.5); Lymphocytes Absolute Auto 0.72 K/mm3 (0.9-3.2); Lymphocytes Percent Auto 9.6 % (18.3-44.2); Mean Corpuscular HGB Conc 31.5 g/dl (32-36); Mean Corpuscular Hemoglobin 32.5 pg (26-34); Mean Corpuscular Volume 103.3 fl (80-100); Monocytes Absolute Auto 0.7 K/mm3 (0.1-0.6); Monocytes Percent Auto 9.8 % (2.6-8.5); Neutrophils Absolute Auto 5.8 K/mm3 (1.3-6.7); Neutrophils Percent Auto 78.2 % (45.5-73.1); Platelet Count Result 216 k/mm3 (150-375); Red Blood Count 4.24 M/mm3 (4.2-5.4); Red Cell Distribution Width 14.9 % (11.5-14.5); White Blood Count 7.5 K/mm3 (4.5-10.0)
[2023-05-19 16:54] LABS: Anion Gap 7 mmol/L (8-16); Blood Urea Nitrogen 27 mg/dL (7-17); Calcium 8.7 mg/dL (8.4-10.2); Carbon Dioxide 35 mmol/L (22-30); Chloride 92 mmol/L (98-107); Estimated CRCL calculation 39 ml/min; Estimated Glomerular Filt Rate 43; Glucose 96 mg/dL (65-110); Sodium 134 mmol/L (137-145)
[2023-05-19] MEDS: RIVAROXABAN 20 MG TABLET PO (18:13)
[2023-05-19] MEDS: SODIUM CHLORIDE 0.9% IV 500 ML IV CONT (18:45)
[2023-05-19] MEDS: PRAMIPEXOLE 0.25 MG TABLET 1.25 MG PO (20:25)
[2023-05-19] MEDS: ATORVASTATIN 40 MG TABLET PO (20:26)
[2023-05-19] MEDS: traZODone HCL 50 MG TABLET 100 MG PO (20:26)
[2023-05-19] MEDS: GABAPENTIN 400 MG CAPSULE PO (20:26)
[2023-05-19] MEDS: MIRTAZAPINE SOLTAB 15 MG TAB.DISPER PO (20:26)
[2023-05-19] MEDS: FAMOTIDINE 20 MG TABLET 40 MG PO (20:26)
[2023-05-20] VITALS (58 sets, daily range): BP systolic 99–145; BP diastolic 60–75; PULSE 67–110; RESP 16–20; TEMP 36.1–36.8; O2SAT 94–100
[2023-05-20] MEDS: LEVOTHYROXINE SODIUM 150 MCG TABLET PO (05:36)
[2023-05-20 06:07] LABS: Basophils Percent Auto 0.8 % (0.2-1.2); Eosinophils Absolute Auto 0.1 K/mm3 (0-0.3); Eosinophils Percent Auto 2.6 % (0-4.4); Hematocrit 38.8 % (37.0-47.0); Hemoglobin 12.7 g/dL (12.0-15.0); Immature Granulocyte Absolute 0.07 K/mm3 (0.00-0.031); Immature Granulocyte Percent A 1.3 % (0-0.5); Lymphocytes Absolute Auto 0.95 K/mm3 (0.9-3.2); Lymphocytes Percent Auto 17.8 % (18.3-44.2); Mean Corpuscular HGB Conc 32.7 g/dl (32-36); Mean Corpuscular Volume 100.8 fl (80-100); Mean Platelet Volume 9.9 fl (7.4-10.4); Monocytes Absolute Auto 0.6 K/mm3 (0.1-0.6); Monocytes Percent Auto 10.9 % (2.6-8.5); Neutrophils Absolute Auto 3.6 K/mm3 (1.3-6.7); Neutrophils Percent Auto 66.6 % (45.5-73.1); Platelet Count Result 176 k/mm3 (150-375); Red Blood Count 3.85 M/mm3 (4.2-5.4); White Blood Count 5.3 K/mm3 (4.5-10.0)
[2023-05-20 06:15] LABS: Alanine Aminotransferase 17 U/L (6-35); Albumin Level 3.4 g/dL (3.5-5.1); Alkaline Phosphatase 127 U/L (38-126); Anion Gap 11 mmol/L (8-16); Aspartate Amino Transferase 32 U/L (14-36); Bilirubin,Total 0.7 mg/dL (0.2-1.3); Blood Urea Nitrogen 28 mg/dL (7-17); Calcium 8.5 mg/dL (8.4-10.2); Carbon Dioxide 28 mmol/L (22-30); Chloride 93 mmol/L (98-107); Estimated CRCL calculation 43 ml/min; Estimated Glomerular Filt Rate 48; Glucose 87 mg/dL (65-110); Phosphorus 4.8 mg/dL (2.5-4.5); Potassium 4.2 mmol/L (3.4-5.0); Sodium 132 mmol/L (137-145)
[2023-05-20] MEDS: PANTOPRAZOLE 40 MG TABLET PO (09:45)
[2023-05-20] MEDS: FERROUS GLUCONATE 324 MG TABLET PO ×2 (09:45→17:55)
[2023-05-20] MEDS: DULoxetine HCL 30 MG CAPSULE.DR PO (09:45)
[2023-05-20] MEDS: GABAPENTIN 100 MG CAPSULE PO (09:45)
[2023-05-20] MEDS: buPROPion HCL SR (12 HR) 150 MG TAB PO ×2 (09:45→17:41)
[2023-05-20] MEDS: MIRABEGRON 25 MG ER TABLET PO (09:45)
[2023-05-20] MEDS: ASCORBIC ACID 500 MG TABLET PO ×2 (09:45→17:41)
[2023-05-20] MEDS: OPTI-GEN TAB 2 TABLET PO (09:45)
[2023-05-20] MEDS: DOXYCYCLINE HYCLATE 100 MG TABLET PO ×2 (09:45→20:59)
[2023-05-20] MEDS: EUCERIN CREAM 120 GM JAR 1 APPLIC TOPICAL (09:46)
[2023-05-20] MEDS: TOLNAFTATE 1% POWDER 45 GM BTL 1 APPLIC TOPICAL ×2 (09:46→21:02)
--- NOTE | 2023-05-20 13:48 | PM.IMPN ---
Progress Note: A&P Assessment and Plan (1) Acute on chronic diastolic congestive heart failure: Code(s): I50.33 - Acute on chronic diastolic (congestive) heart failure Status: Acute Assessment and Plan: Patient presents with shortness of breath. CXR showing diffuse lung disease. BNP 2560 (lower than usual). She was started on IV Lasix. Echo showing EF 70%, mild LVH, indeterminate diastolic fxn, mild valvular disease and moderate pHTN. Good UOP. BP soft so Lasix stopped. Better today and renal function improved. Resume oral Lasiix monitor (2) Hyperkalemia: Code(s): E87.5 - Hyperkalemia Status: Acute Assessment and Plan: Potassium was elevated on admission despite normal renal function. Probably iatrogenic from oral potassium. Repeat potassium level better. Resolved (3) Tinea corporis: Code(s): B35.4 - Tinea corporis Status: Acute Assessment and Plan: Extensive intertriginous tinea. Antifungal treatment started for her significant and diffuse tinea.? Antibiotics should help case there is any mild cellulitic component to the tinea.? Exam improved today. Continue anti-fungal treatment (4) Persistent atrial fibrillation: Code(s): I48.19 - Other persistent atrial fibrillation Status: Acute Assessment and Plan: Patietn with known AFib. Xarelto resumed We continued her diltiazem at decreased dose given her normal blood pressure but now held given the soft BP.? Heart rate controlled. Okay to stop tele (5) CHARLES (obstructive sleep apnea): Code(s): G47.33 - Obstructive sleep apnea (adult) (pediatric) Status: Acute Assessment and Plan: Stable. Continue BiPAP here.? (6) Chronic respiratory failure: Code(s): J96.10 - Chronic respiratory failure, unspecified whether with hypoxia or hypercapnia Status: Acute Assessment and Plan: She is doing well and appears back to baseline. She is stable on her 4 L which we will continue.? (7) Generalized weakness: Code(s): R53.1 - Weakness Status: Acute Assessment and Plan: Suspect weakness related to above. TSH mildly elevated but normal FT4. Folate normal. B12 level low end of normal Check MMA PT/OT (8) Wound, open, abdominal wall, anterior: Code(s): S31.109A - Unspecified open wound of abdominal wall, unspecified quadrant without penetration into peritoneal cavity, initial encounter Status: Acute Assessment and Plan: Patient with open and draining abdominal wound. This is long standing over many, many years. Will obtain a culture. Try to pack wound after it has completely drained. Continue current abx (9) Essential hypertension: Code(s): I10 - Essential (primary) hypertension Status: Chronic Assessment and Plan: Patient's blood pressure was reviewed on 05/20 Blood pressure better controlled Will resume oral lasix. Hold losartan Diltiazem interacts with Xarelto so will stop diltiazem and add metoprolol. (10) UTI (urinary tract infection): Qualifiers: Hematuria presence: without hematuria Urinary tract infection type: site unspecified Qualified Code(s): N39.0 - Urinary tract infection, site not specified Code(s): N39.0 - Urinary tract infection, site not specified Status: Acute Assessment and Plan: UA is consistent with UTI. UCx collected. Rocephin started. UCx negative, UTI ruled out Plan Code status -full DVT prophylaxis -Xarelto Subjective Date/time seen: 05/20/23 13:48 Interval history: 82yo female with atrial fib on live in caregiver anticoagulation, HTN, chronic respiratory failure on 4 L, CHARLES and chronic dCHF here for shortness of breath.?? Patient feels well today. She slept well overnight. She has a nonproductive cough today. No chest pain or shortness of breath Exam Narrative: AF 97.0 145/75 99 16 97% 4L Gen -
[2023-05-20] MEDS: FUROSEMIDE 20 MG TABLET PO (17:41)
[2023-05-20] MEDS: RIVAROXABAN 20 MG TABLET PO (17:41)
[2023-05-20] MEDS: oxyCODONE HCL (*CRX) 5 MG TAB IR PO (17:46)
[2023-05-20] MEDS: PRAMIPEXOLE 0.25 MG TABLET 1.25 MG PO (20:58)
[2023-05-20] MEDS: GABAPENTIN 400 MG CAPSULE PO (20:58)
[2023-05-20] MEDS: FAMOTIDINE 20 MG TABLET 40 MG PO (20:58)
[2023-05-20] MEDS: METOPROLOL TARTRATE 25 MG TABLET PO (20:59)
[2023-05-20] MEDS: MIRTAZAPINE SOLTAB 15 MG TAB.DISPER PO (20:59)
[2023-05-20] MEDS: ATORVASTATIN 40 MG TABLET PO (20:59)
[2023-05-21] VITALS (8 sets, daily range): BP systolic 102–133; BP diastolic 53–83; PULSE 79–94; RESP 20–21; TEMP 36.3–36.7; O2SAT 96–100
[2023-05-21 06:28] LABS: Albumin Level 3.4 g/dL (3.5-5.1); Anion Gap 8 mmol/L (8-16); Blood Urea Nitrogen 28 mg/dL (7-17); Calcium 8.4 mg/dL (8.4-10.2); Carbon Dioxide 30 mmol/L (22-30); Chloride 95 mmol/L (98-107); Estimated CRCL calculation 57 ml/min; Estimated Glomerular Filt Rate > 60; Glucose 84 mg/dL (65-110); Phosphorus 3.6 mg/dL (2.5-4.5); Potassium 4.4 mmol/L (3.4-5.0); Sodium 133 mmol/L (137-145)
[2023-05-21 06:31] LABS: Basophils Percent Auto 0.7 % (0.2-1.2); Eosinophils Absolute Auto 0.2 K/mm3 (0-0.3); Eosinophils Percent Auto 3.4 % (0-4.4); Hematocrit 41.4 % (37.0-47.0); Hemoglobin 12.6 g/dL (12.0-15.0); Immature Granulocyte Absolute 0.08 K/mm3 (0.00-0.031); Immature Granulocyte Percent A 1.4 % (0-0.5); Lymphocytes Absolute Auto 0.92 K/mm3 (0.9-3.2); Lymphocytes Percent Auto 16.6 % (18.3-44.2); Mean Corpuscular HGB Conc 30.4 g/dl (32-36); Mean Corpuscular Hemoglobin 32.6 pg (26-34); Mean Corpuscular Volume 107.3 fl (80-100); Mean Platelet Volume 9.6 fl (7.4-10.4); Monocytes Absolute Auto 0.6 K/mm3 (0.1-0.6); Monocytes Percent Auto 11.2 % (2.6-8.5); Neutrophils Absolute Auto 3.7 K/mm3 (1.3-6.7); Neutrophils Percent Auto 66.7 % (45.5-73.1); Platelet Count Result 184 k/mm3 (150-375); Red Blood Count 3.86 M/mm3 (4.2-5.4); Red Cell Distribution Width 14.6 % (11.5-14.5); White Blood Count 5.5 K/mm3 (4.5-10.0)
[2023-05-21] MEDS: LEVOTHYROXINE SODIUM 150 MCG TABLET PO (06:44)
[2023-05-21] MEDS: DULoxetine HCL 30 MG CAPSULE.DR PO (09:05)
[2023-05-21] MEDS: GABAPENTIN 100 MG CAPSULE PO (09:05)
[2023-05-21] MEDS: OPTI-GEN TAB 2 TABLET PO (09:05)
[2023-05-21] MEDS: PANTOPRAZOLE 40 MG TABLET PO (09:05)
[2023-05-21] MEDS: DOXYCYCLINE HYCLATE 100 MG TABLET PO ×2 (09:05→20:12)
[2023-05-21] MEDS: FUROSEMIDE 40 MG TABLET PO (09:05)
[2023-05-21] MEDS: buPROPion HCL SR (12 HR) 150 MG TAB PO ×2 (09:05→16:35)
[2023-05-21] MEDS: ASCORBIC ACID 500 MG TABLET PO ×2 (09:06→16:35)
[2023-05-21] MEDS: FERROUS GLUCONATE 324 MG TABLET PO ×2 (09:06→16:35)
[2023-05-21] MEDS: MIRABEGRON 25 MG ER TABLET PO (09:06)
[2023-05-21] MEDS: METOPROLOL TARTRATE 25 MG TABLET PO ×2 (09:06→20:12)
[2023-05-21] MEDS: TOLNAFTATE 1% POWDER 45 GM BTL 1 APPLIC TOPICAL (09:08)
[2023-05-21] MEDS: EUCERIN CREAM 120 GM JAR 1 APPLIC TOPICAL (09:09)
--- NOTE | 2023-05-21 11:58 | PM.IMPN ---
Progress Note: A&P Assessment and Plan (1) Acute on chronic diastolic congestive heart failure: Code(s): I50.33 - Acute on chronic diastolic (congestive) heart failure Status: Acute Assessment and Plan: Patient presents with shortness of breath. CXR showing diffuse lung disease. BNP 2560 (lower than usual). She was started on IV Lasix. Echo showing EF 70%, mild LVH, indeterminate diastolic fxn, mild valvular disease and moderate pHTN. Good UOP. BP soft and Cr higher so IV Lasix stopped. Renal function and BP improved and able to resume oral Lasix No change in dose since she was noncompliant with her medications at home Dry cough worse today. Check CXR. monitor (2) Hyperkalemia: Code(s): E87.5 - Hyperkalemia Status: Acute Assessment and Plan: Potassium was elevated on admission despite normal renal function. Probably iatrogenic from oral potassium. Repeat potassium level better. Continue to hold home potassium Resolved (3) Tinea corporis: Code(s): B35.4 - Tinea corporis Status: Acute Assessment and Plan: Extensive intertriginous tinea. Antifungal treatment started for her significant and diffuse tinea.? Antibiotics should help case there is any mild cellulitic component to the tinea.? Exam improved today. Continue anti-fungal treatment (4) Persistent atrial fibrillation: Code(s): I48.19 - Other persistent atrial fibrillation Status: Acute Assessment and Plan: Patient with known AFib. Xarelto resumed Lower home dose of diltiazem resumed but was given the soft BP.? Diltiazem does interact with Xarelto so Metoprolol started instead. (5) CHARLES (obstructive sleep apnea): Code(s): G47.33 - Obstructive sleep apnea (adult) (pediatric) Status: Acute Assessment and Plan: Stable. Continue BiPAP here.? (6) Chronic respiratory failure: Code(s): J96.10 - Chronic respiratory failure, unspecified whether with hypoxia or hypercapnia Status: Acute Assessment and Plan: She is doing well and appears back to baseline. She is stable on her 4 L which we will continue.? (7) Generalized weakness: Code(s): R53.1 - Weakness Status: Acute Assessment and Plan: Suspect weakness related to above. TSH mildly elevated but normal FT4. Folate normal. B12 level low end of normal Check MMA PT/OT (8) Wound, open, abdominal wall, anterior: Code(s): S31.109A - Unspecified open wound of abdominal wall, unspecified quadrant without penetration into peritoneal cavity, initial encounter Status: Acute Assessment and Plan: Patient with open and draining abdominal wound. This is long standing over many, many years. Culture NGTD. Continue packing wound Continue current abx (9) Essential hypertension: Code(s): I10 - Essential (primary) hypertension Status: Chronic Assessment and Plan: Patient's blood pressure was reviewed on 05/21 Blood pressure better controlled Will continue home oral lasix Contineu to hold losartan Diltiazem interacts with Xarelto so Diltiazem was stopped and metoprolol added (10) UTI (urinary tract infection): Qualifiers: Hematuria presence: without hematuria Urinary tract infection type: site unspecified Qualified Code(s): N39.0 - Urinary tract infection, site not specified Code(s): N39.0 - Urinary tract infection, site not specified Status: Acute Assessment and Plan: UA is consistent with UTI. UCx collected. Rocephin started. UCx negative, UTI ruled out Plan Code status -full DVT prophylaxis -Xarelto Subjective Date/time seen: 05/21/23 11:58 Interval history: 82yo female with atrial fib on shelter anticoagulation, HTN, chronic respiratory failure on 4 L, CHARLES and chronic dCHF here for shortness of breath.?? Patient does not feel as well as yesterday. She slept off and
[2023-05-21] MEDS: FUROSEMIDE 20 MG TABLET PO (16:35)
[2023-05-21] MEDS: RIVAROXABAN 20 MG TABLET PO (16:35)
[2023-05-21] MEDS: oxyCODONE HCL (*CRX) 5 MG TAB IR PO (18:21)
[2023-05-21] MEDS: MIRTAZAPINE SOLTAB 15 MG TAB.DISPER PO (20:12)
[2023-05-21] MEDS: FAMOTIDINE 20 MG TABLET 40 MG PO (20:12)
[2023-05-21] MEDS: PRAMIPEXOLE 0.25 MG TABLET 1.25 MG PO (20:12)
[2023-05-21] MEDS: GABAPENTIN 400 MG CAPSULE PO (20:12)
[2023-05-21] MEDS: ATORVASTATIN 40 MG TABLET PO (20:12)
[2023-05-21] MEDS: traZODone HCL 50 MG TABLET 100 MG PO (20:12)
[2023-05-22] VITALS (9 sets, daily range): BP systolic 100–121; BP diastolic 51–65; PULSE 63–89; RESP 20; TEMP 36.1–37.1; O2SAT 95–100
[2023-05-22] MEDS: TOLNAFTATE 1% POWDER 45 GM BTL 1 APPLIC TOPICAL ×3 (04:12→21:40)
[2023-05-22] MEDS: LEVOTHYROXINE SODIUM 150 MCG TABLET PO (06:35)
[2023-05-22] MEDS: OPTI-GEN TAB 2 TABLET PO (09:35)
[2023-05-22] MEDS: PANTOPRAZOLE 40 MG TABLET PO (09:35)
[2023-05-22] MEDS: FUROSEMIDE 40 MG TABLET PO (09:36)
[2023-05-22] MEDS: GABAPENTIN 100 MG CAPSULE PO (09:36)
[2023-05-22] MEDS: buPROPion HCL SR (12 HR) 150 MG TAB PO ×2 (09:36→17:08)
[2023-05-22] MEDS: MIRABEGRON 25 MG ER TABLET PO (09:36)
[2023-05-22] MEDS: FERROUS GLUCONATE 324 MG TABLET PO ×2 (09:36→17:08)
[2023-05-22] MEDS: DOXYCYCLINE HYCLATE 100 MG TABLET PO ×2 (09:36→21:39)
[2023-05-22] MEDS: DULoxetine HCL 30 MG CAPSULE.DR PO (09:36)
[2023-05-22] MEDS: ASCORBIC ACID 500 MG TABLET PO ×2 (09:36→17:08)
[2023-05-22] MEDS: METOPROLOL TARTRATE 25 MG TABLET PO ×2 (09:37→21:38)
[2023-05-22] MEDS: EUCERIN CREAM 120 GM JAR 1 APPLIC TOPICAL (09:39)
[2023-05-22] MEDS: FUROSEMIDE 20 MG TABLET PO (15:55)
--- NOTE | 2023-05-22 16:20 | PM.DS ---
DS: Admitting Diagnosis Discharge Date 05/22/23 Admitting Diagnosis Shortness of breath DS: Discharge Diagnosis Discharge Diagnosis (1) Acute on chronic diastolic congestive heart failure: Code(s): I50.33 - Acute on chronic diastolic (congestive) heart failure Status: Acute Assessment and Plan: Patient presents with shortness of breath. CXR showing diffuse lung disease. BNP 2560 (lower than usual). She was started on IV Lasix. Echo showing EF 70%, mild LVH, indeterminate diastolic fxn, mild valvular disease and moderate pHTN. Good UOP. BP soft and Cr higher so IV Lasix stopped. Renal function and BP improved and able to resume oral Lasix No change in dose since she was noncompliant with her medications at home Dry cough worse today. Check CXR. monitor 05/22: Unchanged, stable for discharge, awaiting insurance authorization 05/23: Slightly worse, check chest x-ray (2) Hyperkalemia: Code(s): E87.5 - Hyperkalemia Status: Acute Assessment and Plan: Potassium was elevated on admission despite normal renal function. Probably iatrogenic from oral potassium. Repeat potassium level better. Continue to hold home potassium Resolved (3) Tinea corporis: Code(s): B35.4 - Tinea corporis Status: Acute Assessment and Plan: Extensive intertriginous tinea. Antifungal treatment started for her significant and diffuse tinea.? Antibiotics should help case there is any mild cellulitic component to the tinea.? Exam improved today. Continue anti-fungal treatment (4) Persistent atrial fibrillation: Code(s): I48.19 - Other persistent atrial fibrillation Status: Acute Assessment and Plan: Patient with known AFib. Xarelto resumed Lower home dose of diltiazem resumed but was given the soft BP.? Diltiazem does interact with Xarelto so Metoprolol started instead. (5) CHARLES (obstructive sleep apnea): Code(s): G47.33 - Obstructive sleep apnea (adult) (pediatric) Status: Acute Assessment and Plan: Stable. Continue BiPAP here.? (6) Chronic respiratory failure: Code(s): J96.10 - Chronic respiratory failure, unspecified whether with hypoxia or hypercapnia Status: Acute Assessment and Plan: She is doing well and appears back to baseline. She is stable on her 4 L which we will continue.? (7) Generalized weakness: Code(s): R53.1 - Weakness Status: Acute Assessment and Plan: Suspect weakness related to above. TSH mildly elevated but normal FT4. Folate normal. B12 level low end of normal Check MMA PT/OT (8) Wound, open, abdominal wall, anterior: Code(s): S31.109A - Unspecified open wound of abdominal wall, unspecified quadrant without penetration into peritoneal cavity, initial encounter Status: Acute Assessment and Plan: Patient with open and draining abdominal wound. This is long standing over many, many years. Culture NGTD. Continue packing wound Continue current abx (9) Essential hypertension: Code(s): I10 - Essential (primary) hypertension Status: Chronic Assessment and Plan: Patient's blood pressure was reviewed on 05/23 Blood pressure better controlled Will continue home oral lasix Contineu to hold losartan Diltiazem interacts with Xarelto so Diltiazem was stopped and metoprolol added (10) UTI (urinary tract infection): Qualifiers: Hematuria presence: without hematuria Urinary tract infection type: site unspecified Qualified Code(s): N39.0 - Urinary tract infection, site not specified Code(s): N39.0 - Urinary tract infection, site not specified Status: Acute Assessment and Plan: UA is consistent with UTI. UCx collected. Rocephin started. UCx negative, UTI ruled out Plan Code status -full DVT prophylaxis -Xarelto DS: Summary Hospital Course Hospital Course: 82yo female with atr
[2023-05-22] MEDS: metroNIDAZOLE 500 MG TABLET PO ×2 (17:08→21:39)
[2023-05-22] MEDS: RIVAROXABAN 20 MG TABLET PO (17:08)
[2023-05-22] MEDS: oxyCODONE HCL (*CRX) 5 MG TAB IR PO (17:12)
[2023-05-22] MEDS: GABAPENTIN 400 MG CAPSULE PO (21:37)
[2023-05-22] MEDS: MIRTAZAPINE SOLTAB 15 MG TAB.DISPER PO (21:37)
[2023-05-22] MEDS: PRAMIPEXOLE 0.25 MG TABLET 1.25 MG PO (21:37)
[2023-05-22] MEDS: traZODone HCL 50 MG TABLET 100 MG PO (21:38)
[2023-05-22] MEDS: FAMOTIDINE 20 MG TABLET 40 MG PO (21:39)
[2023-05-22] MEDS: ATORVASTATIN 40 MG TABLET PO (21:39)
[2023-05-23] VITALS (9 sets, daily range): BP systolic 121–138; BP diastolic 60–87; PULSE 71–84; RESP 18–22; TEMP 36.1–36.6; O2SAT 97–100
[2023-05-23] MEDS: metroNIDAZOLE 500 MG TABLET PO ×3 (06:32→22:10)
[2023-05-23] MEDS: LEVOTHYROXINE SODIUM 150 MCG TABLET PO (06:32)
[2023-05-23] MEDS: FUROSEMIDE 40 MG TABLET PO (09:06)
[2023-05-23] MEDS: ASCORBIC ACID 500 MG TABLET PO ×2 (09:06→16:38)
[2023-05-23] MEDS: PANTOPRAZOLE 40 MG TABLET PO (09:06)
[2023-05-23] MEDS: GABAPENTIN 100 MG CAPSULE PO (09:06)
[2023-05-23] MEDS: OPTI-GEN TAB 2 TABLET PO (09:07)
[2023-05-23] MEDS: METOPROLOL TARTRATE 25 MG TABLET PO ×2 (09:07→22:11)
[2023-05-23] MEDS: DOXYCYCLINE HYCLATE 100 MG TABLET PO ×2 (09:08→22:11)
[2023-05-23] MEDS: buPROPion HCL SR (12 HR) 150 MG TAB PO ×2 (09:08→16:38)
[2023-05-23] MEDS: DULoxetine HCL 30 MG CAPSULE.DR PO (09:08)
[2023-05-23] MEDS: MIRABEGRON 25 MG ER TABLET PO (09:09)
[2023-05-23] MEDS: FERROUS GLUCONATE 324 MG TABLET PO ×2 (09:09→16:38)
[2023-05-23] MEDS: TOLNAFTATE 1% POWDER 45 GM BTL 1 APPLIC TOPICAL ×2 (09:10→22:14)
[2023-05-23] MEDS: EUCERIN CREAM 120 GM JAR 1 APPLIC TOPICAL (09:10)
[2023-05-23] MEDS: oxyCODONE HCL (*CRX) 5 MG TAB IR PO ×2 (09:15→16:37)
[2023-05-23] MEDS: FUROSEMIDE 20 MG TABLET PO (14:32)
--- NOTE | 2023-05-23 15:22 | PM.IMPN ---
Progress Note: A&P Assessment and Plan (1) Acute on chronic diastolic congestive heart failure: Code(s): I50.33 - Acute on chronic diastolic (congestive) heart failure Status: Acute Assessment and Plan: Patient presents with shortness of breath. CXR showing diffuse lung disease. BNP 2560 (lower than usual). She was started on IV Lasix. Echo showing EF 70%, mild LVH, indeterminate diastolic fxn, mild valvular disease and moderate pHTN. Good UOP. BP soft and Cr higher so IV Lasix stopped. Renal function and BP improved and able to resume oral Lasix No change in dose since she was noncompliant with her medications at home Dry cough worse today. Check CXR. monitor 05/22: Unchanged, stable for discharge, awaiting insurance authorization (2) Hyperkalemia: Code(s): E87.5 - Hyperkalemia Status: Acute Assessment and Plan: Potassium was elevated on admission despite normal renal function. Probably iatrogenic from oral potassium. Repeat potassium level better. Continue to hold home potassium Resolved (3) Tinea corporis: Code(s): B35.4 - Tinea corporis Status: Acute Assessment and Plan: Extensive intertriginous tinea. Antifungal treatment started for her significant and diffuse tinea.? Antibiotics should help case there is any mild cellulitic component to the tinea.? Exam improved today. Continue anti-fungal treatment (4) Persistent atrial fibrillation: Code(s): I48.19 - Other persistent atrial fibrillation Status: Acute Assessment and Plan: Patient with known AFib. Xarelto resumed Lower home dose of diltiazem resumed but was given the soft BP.? Diltiazem does interact with Xarelto so Metoprolol started instead. (5) CHARLES (obstructive sleep apnea): Code(s): G47.33 - Obstructive sleep apnea (adult) (pediatric) Status: Acute Assessment and Plan: Stable. Continue BiPAP here.? (6) Chronic respiratory failure: Code(s): J96.10 - Chronic respiratory failure, unspecified whether with hypoxia or hypercapnia Status: Acute Assessment and Plan: She is doing well and appears back to baseline. She is stable on her 4 L which we will continue.? (7) Generalized weakness: Code(s): R53.1 - Weakness Status: Acute Assessment and Plan: Suspect weakness related to above. TSH mildly elevated but normal FT4. Folate normal. B12 level low end of normal Check MMA PT/OT (8) Wound, open, abdominal wall, anterior: Code(s): S31.109A - Unspecified open wound of abdominal wall, unspecified quadrant without penetration into peritoneal cavity, initial encounter Status: Acute Assessment and Plan: Patient with open and draining abdominal wound. This is long standing over many, many years. Culture NGTD. Continue packing wound Continue current abx (9) Essential hypertension: Code(s): I10 - Essential (primary) hypertension Status: Chronic Assessment and Plan: Patient's blood pressure was reviewed on 05/22 Blood pressure better controlled Will continue home oral lasix Contineu to hold losartan Diltiazem interacts with Xarelto so Diltiazem was stopped and metoprolol added (10) UTI (urinary tract infection): Qualifiers: Hematuria presence: without hematuria Urinary tract infection type: site unspecified Qualified Code(s): N39.0 - Urinary tract infection, site not specified Code(s): N39.0 - Urinary tract infection, site not specified Status: Acute Assessment and Plan: UA is consistent with UTI. UCx collected. Rocephin started. 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
--- NOTE | 2023-05-23 15:31 | PM.IMPN ---
Progress Note: A&P Assessment and Plan (1) Acute on chronic diastolic congestive heart failure: Code(s): I50.33 - Acute on chronic diastolic (congestive) heart failure Status: Acute Assessment and Plan: Patient presents with shortness of breath. CXR showing diffuse lung disease. BNP 2560 (lower than usual). She was started on IV Lasix. Echo showing EF 70%, mild LVH, indeterminate diastolic fxn, mild valvular disease and moderate pHTN. Good UOP. BP soft and Cr higher so IV Lasix stopped. Renal function and BP improved and able to resume oral Lasix No change in dose since she was noncompliant with her medications at home Dry cough worse today. Check CXR. monitor 05/22: Unchanged, stable for discharge, awaiting insurance authorization 05/23: Slightly worse, check chest x-ray (2) Hyperkalemia: Code(s): E87.5 - Hyperkalemia Status: Acute Assessment and Plan: Potassium was elevated on admission despite normal renal function. Probably iatrogenic from oral potassium. Repeat potassium level better. Continue to hold home potassium Resolved (3) Tinea corporis: Code(s): B35.4 - Tinea corporis Status: Acute Assessment and Plan: Extensive intertriginous tinea. Antifungal treatment started for her significant and diffuse tinea.? Antibiotics should help case there is any mild cellulitic component to the tinea.? Exam improved today. Continue anti-fungal treatment (4) Persistent atrial fibrillation: Code(s): I48.19 - Other persistent atrial fibrillation Status: Acute Assessment and Plan: Patient with known AFib. Xarelto resumed Lower home dose of diltiazem resumed but was given the soft BP.? Diltiazem does interact with Xarelto so Metoprolol started instead. (5) CHARLES (obstructive sleep apnea): Code(s): G47.33 - Obstructive sleep apnea (adult) (pediatric) Status: Acute Assessment and Plan: Stable. Continue BiPAP here.? (6) Chronic respiratory failure: Code(s): J96.10 - Chronic respiratory failure, unspecified whether with hypoxia or hypercapnia Status: Acute Assessment and Plan: She is doing well and appears back to baseline. She is stable on her 4 L which we will continue.? (7) Generalized weakness: Code(s): R53.1 - Weakness Status: Acute Assessment and Plan: Suspect weakness related to above. TSH mildly elevated but normal FT4. Folate normal. B12 level low end of normal Check MMA PT/OT (8) Wound, open, abdominal wall, anterior: Code(s): S31.109A - Unspecified open wound of abdominal wall, unspecified quadrant without penetration into peritoneal cavity, initial encounter Status: Acute Assessment and Plan: Patient with open and draining abdominal wound. This is long standing over many, many years. Culture NGTD. Continue packing wound Continue current abx (9) Essential hypertension: Code(s): I10 - Essential (primary) hypertension Status: Chronic Assessment and Plan: Patient's blood pressure was reviewed on 05/23 Blood pressure better controlled Will continue home oral lasix Contineu to hold losartan Diltiazem interacts with Xarelto so Diltiazem was stopped and metoprolol added (10) UTI (urinary tract infection): Qualifiers: Hematuria presence: without hematuria Urinary tract infection type: site unspecified Qualified Code(s): N39.0 - Urinary tract infection, site not specified Code(s): N39.0 - Urinary tract infection, site not specified Status: Acute Assessment and Plan: UA is consistent with UTI. UCx collected. Rocephin started. 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
[2023-05-23 16:44] LABS: Alanine Aminotransferase 17 U/L (6-35); Albumin Level 4.1 g/dL (3.5-5.1); Alkaline Phosphatase 145 U/L (38-126); Anion Gap 9 mmol/L (8-16); Aspartate Amino Transferase 29 U/L (14-36); Bilirubin,Total 0.5 mg/dL (0.2-1.3); Blood Urea Nitrogen 22 mg/dL (7-17); Carbon Dioxide 33 mmol/L (22-30); Chloride 92 mmol/L (98-107); Estimated CRCL calculation 57 ml/min; Estimated Glomerular Filt Rate > 60; Glucose 79 mg/dL (65-110); Potassium 4.1 mmol/L (3.4-5.0); Sodium 134 mmol/L (137-145)
[2023-05-23] MEDS: RIVAROXABAN 20 MG TABLET PO (17:17)
[2023-05-23 18:45] LABS: Methylmalonic Acid 394 nmol/L (87-318)
[2023-05-23] MEDS: FAMOTIDINE 20 MG TABLET 40 MG PO (22:09)
[2023-05-23] MEDS: MIRTAZAPINE SOLTAB 15 MG TAB.DISPER PO (22:10)
[2023-05-23] MEDS: GABAPENTIN 400 MG CAPSULE PO (22:10)
[2023-05-23] MEDS: traZODone HCL 50 MG TABLET 100 MG PO (22:10)
[2023-05-23] MEDS: PRAMIPEXOLE 0.25 MG TABLET 1.25 MG PO (22:11)
[2023-05-23] MEDS: ATORVASTATIN 40 MG TABLET PO (22:12)
[2023-05-23 23:20] LABS: Basophils Percent Auto 0.4 % (0.2-1.2); Eosinophils Absolute Auto 0.2 K/mm3 (0-0.3); Eosinophils Percent Auto 2.7 % (0-4.4); Hematocrit 39.1 % (37.0-47.0); Hemoglobin 12.3 g/dL (12.0-15.0); Immature Granulocyte Absolute 0.05 K/mm3 (0.00-0.031); Immature Granulocyte Percent A 0.7 % (0-0.5); Lymphocytes Absolute Auto 0.89 K/mm3 (0.9-3.2); Lymphocytes Percent Auto 12.8 % (18.3-44.2); Mean Corpuscular HGB Conc 31.5 g/dl (32-36); Mean Corpuscular Hemoglobin 31.9 pg (26-34); Mean Corpuscular Volume 101.6 fl (80-100); Mean Platelet Volume 9.5 fl (7.4-10.4); Monocytes Absolute Auto 0.6 K/mm3 (0.1-0.6); Monocytes Percent Auto 8.8 % (2.6-8.5); Neutrophils Absolute Auto 5.2 K/mm3 (1.3-6.7); Neutrophils Percent Auto 74.6 % (45.5-73.1); Platelet Count Result 207 k/mm3 (150-375); Red Blood Count 3.85 M/mm3 (4.2-5.4); Red Cell Distribution Width 14.3 % (11.5-14.5); White Blood Count 6.9 K/mm3 (4.5-10.0)
[2023-05-24] MEDS: LEVOTHYROXINE SODIUM 150 MCG TABLET PO (06:14)
[2023-05-24] MEDS: metroNIDAZOLE 500 MG TABLET PO ×2 (06:14→13:41)
[2023-05-24 06:24] VITALS: BP 132/60; PULSE 63; RESP 18; TEMP 36.6; O2SAT 100
[2023-05-24] MEDS: OPTI-GEN TAB 2 TABLET PO (08:21)
[2023-05-24] MEDS: ASCORBIC ACID 500 MG TABLET PO ×2 (08:21→17:23)
[2023-05-24] MEDS: MIRABEGRON 25 MG ER TABLET PO (08:21)
[2023-05-24] MEDS: GABAPENTIN 100 MG CAPSULE PO (08:21)
[2023-05-24] MEDS: FUROSEMIDE 40 MG TABLET PO (08:21)
[2023-05-24] MEDS: DULoxetine HCL 30 MG CAPSULE.DR PO (08:21)
[2023-05-24] MEDS: PANTOPRAZOLE 40 MG TABLET PO (08:21)
[2023-05-24] MEDS: DOXYCYCLINE HYCLATE 100 MG TABLET PO (08:21)
[2023-05-24 08:22] VITALS: PULSE 79
[2023-05-24] MEDS: METOPROLOL TARTRATE 25 MG TABLET PO (08:22)
[2023-05-24] MEDS: FERROUS GLUCONATE 324 MG TABLET PO ×2 (08:22→17:22)
[2023-05-24] MEDS: buPROPion HCL SR (12 HR) 150 MG TAB PO ×2 (08:22→17:23)
[2023-05-24] MEDS: TOLNAFTATE 1% POWDER 45 GM BTL 1 APPLIC TOPICAL (08:23)
[2023-05-24] MEDS: EUCERIN CREAM 120 GM JAR 1 APPLIC TOPICAL (08:23)
[2023-05-24] MEDS: oxyCODONE HCL (*CRX) 5 MG TAB IR PO ×2 (10:44→17:27)
[2023-05-24] MEDS: FUROSEMIDE 20 MG TABLET PO (13:41)
[2023-05-24 14:02] VITALS: BP 100/54; PULSE 77; RESP 18; TEMP 36.1; O2SAT 100
[2023-05-24 14:10] VITALS: O2SAT 98
[2023-05-24] MEDS: RIVAROXABAN 20 MG TABLET PO (17:23)
--- NOTE | 2023-05-24 18:56 | PC.NURSE ---
[employer] called report to Trisha and discharge instructions/ med list faxed to facility prior to patient transport.
== END 2023-05-24 19:17 | DRG 291 ==
LOC: ANHED 23:11 → ANH3MED 05-18 00:27
PROVIDERS: Internal Medicine; Admitting Provider Internal Medicine; Emergency Provider Emergency Medicine; Visit Provider Student in an Organized Health Care Education/Training Program
DX: I11.0 Hypertensive heart disease with heart failure (principal); I50.33 Acute on chronic diastolic (congestive) heart failure; I48.19 Other persistent atrial fibrillation; J96.10 Chronic respiratory failure, unspecified whether with hypoxia or hypercapnia; Z68.42 Body mass index [BMI] 45.0-49.9, adult; B35.4 Tinea corporis; S31.109A Unspecified open wound of abdominal wall, unspecified quadrant without penetration into peritoneal cavity, initial encounter; D64.9 Anemia, unspecified; E87.5 Hyperkalemia; E66.01 Morbid (severe) obesity due to excess calories; E78.5 Hyperlipidemia, unspecified; G25.81 Restless legs syndrome; G47.33 Obstructive sleep apnea (adult) (pediatric); H35.30 Unspecified macular degeneration; I27.20 Pulmonary hypertension, unspecified; K21.9 Gastro-esophageal reflux disease without esophagitis; R32 Unspecified urinary incontinence; Z85.850 Personal history of malignant neoplasm of thyroid; Z90.89 Acquired absence of other organs; Z91.148 Patient's other noncompliance with medication regimen for other reason; Z90.710 Acquired absence of both cervix and uterus; Z90.49 Acquired absence of other specified parts of digestive tract; Z98.41 Cataract extraction status, right eye; Z98.42 Cataract extraction status, left eye; Z96.653 Presence of artificial knee joint, bilateral; Z20.822 Contact with and (suspected) exposure to COVID-19; Z86.16 Personal history of COVID-19; Z79.01 Long term (current) use of anticoagulants; Z99.81 Dependence on supplemental oxygen
CPT/HCPCS: 36415; 71045; 80048; 80053; 80069; 81001; 82607; 82746; 83605; 83690; 83735; 83880; 83921; 84100; 84145; 84439; 84443; 84480; 84484; 85025; 85610; 85730; 87070; 87075; 87076; 87086; 87088; 87205; 87637; 93005; 93306; 96365; 96374; 96376; 97110; 97161; 97165; 97530; 97535; 99285; A9270; G0378; J0696; J1940; J7040

== ENCOUNTER 2023-10-09 20:21 | Inpatient (IN) | payer MEDICARE, SELFPAY ==
[2023-10-09] VITALS (9 sets, daily range): BP systolic 123–187; BP diastolic 89–140; PULSE 100–145; RESP 17–22; TEMP 36.8; O2SAT 94–99
--- NOTE | ~2023-10-09 | XR_ITS ---
EXAMINATION: XR chest 1V portable Exam Date/Time: 10/09/2023 20:55 CDT HISTORY: SOB Comparison: 05/23/2023. RESULT: Lines, tubes, and devices: Surgical clips over the lower neck. Lungs and pleura: Diffuse reticular and groundglass opacities. Subsegmental left and segmental right basilar airspace disease. Mild right costophrenic angle blunting. Cardiomediastinal silhouette: Stable. Other: No acute osseous or upper abdominal finding. IMPRESSION: Segmental right and subsegmental left basilar atelectasis/consolidation. Diffuse pulmonary opacities may represent mild-moderate interstitial edema. Possible small right pleural effusion. Reviewed, dictated and finalized at location [facility]. IMPRESSION: Segmental right and subsegmental left basilar atelectasis/consolidation. Diffus e pulmonary opacities may represent mild-moderate interstitial edema. Possible small right pleural effusion.
--- NOTE | 2023-10-09 20:25 | ECG_ITS ---
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 Measurements Intervals [place] Rate: 111 P: 0 [place]: 0 QRS: 66 QRSD: 81 T: -12 QT: 326 QTc: 444 Interpretive Statements ATRIAL FIBRILLATION WITH RAPID VENTRICULAR RESPONSE NONSPECIFIC ST-T WAVE ABNORMALITY- ANTEROLAT/INF LEADS BASELINE ARTIFACT- I, II, III, AVR, AVL, AVF, V1-V6 ABNORMAL ECG No previous ECG available for comparison Electronically Signed On 10-10-2023 09:24:37 CDT by Saji Lyons D.O.
[2023-10-09 21:00] LABS: Basophils Percent Auto 0.3 % (0.2-1.2); Eosinophils Absolute Auto 0.1 K/mm3 (0-0.3); Hematocrit 40.7 % (37.0-47.0); Hemoglobin 13.1 g/dL (12.0-15.0); Immature Granulocyte Absolute 0.06 K/mm3 (0.00-0.031); Immature Granulocyte Percent A 0.5 % (0-0.5); Lymphocytes Absolute Auto 0.68 K/mm3 (0.9-3.2); Lymphocytes Percent Auto 5.5 % (18.3-44.2); Mean Corpuscular HGB Conc 32.2 g/dl (32-36); Mean Corpuscular Volume 99.5 fl (80-100); Mean Platelet Volume 9.5 fl (7.4-10.4); Monocytes Absolute Auto 0.6 K/mm3 (0.1-0.6); Monocytes Percent Auto 4.6 % (2.6-8.5); Neutrophils Absolute Auto 10.8 K/mm3 (1.3-6.7); Neutrophils Percent Auto 88.1 % (45.5-73.1); Platelet Count Result 143 k/mm3 (150-375); Red Blood Count 4.09 M/mm3 (4.2-5.4); Red Cell Distribution Width 13.9 % (11.5-14.5); White Blood Count 12.3 K/mm3 (4.5-10.0)
[2023-10-09 21:10] LABS: Lipase 91 U/L (23-300); Magnesium 1.9 mg/dL (1.6-2.3)
[2023-10-09 21:11] LABS: Alanine Aminotransferase 14 U/L (6-35); Albumin Level 3.7 g/dL (3.5-5.1); Alkaline Phosphatase 114 U/L (38-126); Anion Gap 4 mmol/L (4-12); Aspartate Amino Transferase 21 U/L (14-36); Bilirubin,Total 0.9 mg/dL (0.2-1.3); Blood Urea Nitrogen 24 mg/dL (7-17); Calcium 8.7 mg/dL (8.4-10.2); Carbon Dioxide 37 mmol/L (22-30); Chloride 96 mmol/L (98-107); Estimated CRCL calculation 55 ml/min; Estimated Glomerular Filt Rate > 60; Glucose 112 mg/dL (65-110); INR 2.1; Potassium 3.9 mmol/L (3.4-5.0); Sodium 137 mmol/L (137-145)
[2023-10-09 21:12] LABS: Partial Thromboplastin Time 51.2 Seconds (22.3-36.8)
[2023-10-09 21:16] LABS: Influenza A QL RT-PCR Negative (Negative); Influenza B QL RT-PCR Negative (Negative); RSV RNA, RT-PCR Negative (Negative); SARS-CoV-2 RNA PCR Negative (Negative)
[2023-10-09 21:23] LABS: NT Pro B Type Natriuretic Pept 3560 pg/mL (19.9-100); Troponin I < 0.012 ng/mL (0.000-0.034)
[2023-10-09 21:40] LABS: Procalcitonin 0.1 ng/mL
[2023-10-09 21:41] LABS: Lactic Acid Reflex 1.4 mmol/L (0.7-2.0)
[2023-10-09 22:13] LABS: Alveolar/Arterial O2 Gradient 203.5 mmHg; Base Excess ABG 6.6 mEq/l (+/-2.0); Fractional Inspired Oxygen 50 %; HCO3 ABG 31.4 mEq/l (22.0-26.0); Oxygen Content ABG 18.6 %vol (16.0-22.0); Oxygen Saturation ABG 97.9 % (95.0-100.0); Oxyhemoglobin 96.2 % THb (90.0-100.0); PCO2 ABG 45.4 mmHg (35.0-45.0); PO2 ABG 101.9 mmHg (80.0-100.0); PO2 FiO2 Ratio Arterial Blood 2.04 %; Total Hemoglobin 13.7 g/dL (12.0-18.0); pH ABG 7.458 (7.350-7.450)
[2023-10-09 22:15] LABS: Appearance Urine Clear (Clear); Bacteria Urine None Seen /hpf; Bilirubin Urine Negative (Negative); Blood Urine Negative (Negative); Color Urine Yellow (Yellow); Glucose Urine UA Negative (Negative); Ketones Urine Trace mg/dL (Negative); Leukocyte Esterase Ur Trace LEU/UL (Negative); Need Manual Microscopic Reviewed; Nitrate Urine Negative (Negative); Non Pathogenic Casts 0-2; Protein Urine 1+ mg/dL (Negative); Specific Grav Ur 1.024 (1.001-1.035); Squamous Epithelial Cell Urine None Seen /hpf (Few); WBC Urine 0-5 /hpf (0-3); pH Urine 5.5 (5.0-9.0)
[2023-10-09 22:15] LABS: Device BIPAP; Modified Allen's Test Pass; Site Drawn RIGHT RADIAL
[2023-10-09 22:17] LABS: Expiratory Pressure 5 cmH2O; Inspiratory Pressure 10 cmH2O
[2023-10-09 22:25] LABS: Add Urine Microscopic? YES
--- NOTE | 2023-10-09 22:26 | PM.IMHP ---
H&P: HPI History of Present Illness Date/Time: 10/09/23 22:26 Chief Complaint: shortness of breath Narrative: This is an 82-year-old female with past medical history significant for morbid obesity, chronic abdominal wound, congestive heart failure, atrial fibrillation rate controlled anticoagulated, chronic pain syndrome, obstructive sleep apnea on CPAP. patient presents to the emergency room due to shortness of breath and chest pain. History taking is limited patient is on BiPAP most of the history has been obtained from who is at bedside. In emergency room patient was saturating low and was placed on BiPAP. Preliminary workup was significant for chest x-ray with infiltrates. Patient has been admitted for further evaluation management and treatment. EXAMINATION:? XR chest 1V portable Exam Date/Time:? 10/09/2023 20:55 CDT HISTORY: SOB ? Comparison:? 05/23/2023. RESULT: Lines, tubes, and devices:? Surgical clips over the lower neck. Lungs and pleura:? Diffuse reticular and groundglass opacities. Subsegmental left and segmental right basilar airspace disease. Mild right costophrenic angle blunting. Cardiomediastinal silhouette:? Stable. Other:? No acute osseous or upper abdominal finding. ? IMPRESSION: Segmental right and subsegmental left basilar atelectasis/consolidation. Diffuse pulmonary opacities may represent mild-moderate interstitial edema. Possible small right pleural effusion. Review of Systems Review of Systems: ROS unobtainable: Yes other ( patient on BiPAP) [facility] Past Medical History Medical History Anemia Anxiety Chronic anticoagulation Chronic diastolic congestive heart failure Echocardiogram in October 2018 demonstrated hyperdynamic left ventricular function with an ejection fraction of 71%, moderate left atrial enlargement, and grade 2 diastolic dysfunction. Chronic pain syndrome Chronic wound infection of abdomen On long-term doxycycline b.i.d. Current use of fdc anticoagulation On Xarelto for stroke prophylaxis given paroxysmal atrial fibrillation. Depression Essential hypertension Gastroesophageal reflux disease Hyperlipidemia Macular degeneration Morbid obesity Obstructive sleep apnea on CPAP Overactive bladder Persistent atrial fibrillation Pneumonia due to COVID-19 virus (03/2020) Postsurgical hypothyroidism Restless leg syndrome Shingles Thyroid cancer Status post thyroidectomy. Surgical History Surgical History History of appendectomy (2003) Complicated postoperative course with chronic midline abdominal wound. History of bilateral cataract extraction History of hernia repair History of orthopedic surgery ORIF right lower extremity fracture. History of ovarian cystectomy History of spinal surgery History of thyroidectomy History of total abdominal hysterectomy History of total bilateral knee replacement Family History Family History Mother Alzheimer's dementia Hypertension Father Acute myocardial infarction Sibling Hypertension Son Heart attack Social History Social History Social History: Surrogate decision maker: Prince Rogel, . Code status: Full code. Smoking status: Never smoker Second hand tobacco smoke exposure: No Alcohol intake: never Substance use: never Substance use type: does not use Do You Feel Safe in your Home?: Yes Lack of Transportation: No Lack of Food: Never True Current Housing: I Have Housing Concerned About Future Housing: No Difficulty Paying Gas/Electric Bills: No Difficulty Paying for Meds: No Currently Unemployed: No Education: Associate Degree Difficulty w/ Childcare or Family Care: No Additional living arrangements comments: Lives in [place]
[2023-10-09] MEDS: dilTIAZem HCl INJ 25 MG/5 ML VIAL 10 MG IV PUSH (22:34)
--- NOTE | 2023-10-09 22:45 | ED.GENADULT ---
HPI - General Adult General Chief complaint: Shortness of Breath/Dyspnea Stated complaint: DIFFICULTY BREATHING Time Seen by Provider: 10/09/23 20:28 History of Present Illness HPI narrative: The patient is 82-year-old female who presents emergency department chief complaint of shortness of breath. Patient has prior history of AFib and history of congestive heart failure. The patient was having low oxygen levels with sats in the 80s on 5 L at the [facility]. Patient has had multiple admissions for congestive heart failure Related Data Home Medications Medication Instructions Recorded Confirmed atorvastatin 40 mg tablet 40 mg PO HS 02/16/20 05/18/23 bupropion HCl 150 mg tablet,12 hr 150 mg PO BID 02/16/20 05/18/23 sustained-release clonazepam 1 mg tablet 1 mg PO DAILY PRN Anxiety 02/16/20 05/18/23 gabapentin 100 mg capsule 100 mg PO QAM 02/16/20 05/18/23 mirtazapine 15 mg disintegrating 15 mg PO HS 02/16/20 05/18/23 tablet rivaroxaban 20 mg tablet (Xarelto) 20 mg PO DAILY 02/16/20 05/18/23 vit C 250 mg-vit E 90 mg-zinc 40 2 tablet PO DAILY 02/16/20 05/18/23 mg-copper 1 wy-pfmanm-tyolvn capsule (PreserVision AREDS-2) calcium carbonate 600 mg-vitamin 1 cap PO DAILY 10/15/20 05/18/23 D3 12.5 mcg (500 unit) capsule famotidine 40 mg tablet 40 mg PO HS 10/15/20 05/18/23 mirabegron 25 mg tablet,extended 25 mg PO DAILY 10/15/20 05/18/23 release 24 hr (Myrbetriq) pramipexole 0.25 mg tablet 1.25 mg PO HS 10/15/20 05/18/23 Fleet Enema 1 ea RECTAL DAILY PRN Constipation 01/06/23 05/18/23 acetaminophen 500 mg tablet 1,000 mg PO Q6H PRN Pain (Scale 01/06/23 05/18/23 (Tylenol Extra Strength) Score 1-3) ascorbic acid (vitamin C) 500 mg 500 mg PO BID 01/06/23 05/18/23 tablet cetirizine 10 mg tablet 10 mg PO DAILY PRN Allergy Symptoms 01/06/23 05/18/23 ferrous gluconate 324 mg (38 mg 324 mg PO BID 01/06/23 05/18/23 iron) tablet gabapentin 100 mg capsule 400 mg PO HS 01/06/23 05/18/23 levothyroxine 150 mcg capsule 150 mcg PO QAM 01/06/23 05/18/23 oxycodone 5 mg tablet 5 mg PO Q6H PRN Pain, Moderate 02/17/23 05/18/23 trazodone 100 mg tablet 100 mg PO HS PRN Insomnia 02/21/23 05/18/23 duloxetine 30 mg PO DAILY 05/18/23 05/18/23 omeprazole 40 mg capsule,delayed 40 mg PO DAILY 05/18/23 05/18/23 release potassium chloride 20 mEq oral 20 meq PO DAILY 05/18/23 05/18/23 packet (Klor-Con) valsartan 320 mg tablet 320 mg PO DAILY 05/18/23 05/18/23 Allergies Allergy/AdvReac Type Severity Reaction Status Date / Time Methotrexate Analogues Allergy Unknown mouth sores Verified 02/17/23 13:43 Sulfa (Sulfonamide Allergy Unknown unknown Verified 02/17/23 13:43 Antibiotics) Review of Systems Review of Systems: A 10 system review of systems was completed on the patient and is negative except for what is stated in the HPI. Nursing and ancillary documentation was reviewed. [facility] Past Medical History Medical History Anemia Anxiety Chronic anticoagulation Chronic diastolic congestive heart failure Echocardiogram in October 2018 demonstrated hyperdynamic left ventricular function with an ejection fraction of 71%, moderate left atrial enlargement, and grade 2 diastolic dysfunction. Chronic pain syndrome Chronic wound infection of abdomen On long-term doxycycline b.i.d. 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 Depression Essential hypertension Gastroesophageal reflux disease Hyperlipidemia Macular degeneration Morbid obesity Obstructive sleep apnea on CPAP Overactive bladder Persistent atrial fibrillation Pneumonia due to COVID-19 virus (03/2020) Postsurgical hypothyroidism Restless leg syndrome Shingles Thyroid cancer Status post thyroidectomy. Surgical History Surgical History History of appendectomy (2003) Comp
--- NOTE | 2023-10-09 23:12 | ECG_ITS ---
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 Measurements Intervals [place] Rate: 105 P: 0 [place]: 0 QRS: 57 QRSD: 90 T: 16 QT: 322 QTc: 426 Interpretive Statements ATRIAL FIBRILLATION WITH RAPID VENTRICULAR RESPONSE NONSPECIFIC ST-TWAVE ABNORMALITY- INFERIOR LEADS BASELINE ARTIFACT- I, III, AVR, AVL, AVF, V1-V6 ABNORMAL ECG Compared to ECG 10/09/2023 20:21:24 NO SIGNIFICANT CHANGE Electronically Signed On 10-10-2023 15:04:28 CDT by Saji Lyons D.O.
[2023-10-09] MEDS: FUROSEMIDE INJ 40 MG/4 ML VIAL IV PUSH (23:29)
[2023-10-09] MEDS: dilTIAZem 100 MG/100 ML 100 MG/100 ML BAG IV CONT (23:33)
[2023-10-09] MEDS: AZITHROMYCIN 500 MG/NS 250 ML 500 MG/250 ML BAG 250 MG IVPB (23:35)
--- NOTE | 2023-10-09 23:40 | PC.NURSE ---
report received from EDWARD Gomes
[2023-10-10] VITALS (25 sets, daily range): BP systolic 101–141; BP diastolic 54–103; PULSE 72–107; RESP 20–29; TEMP 35.8–37.1; O2SAT 92–100; BMI 51.5
--- NOTE | 2023-10-10 00:23 | ADMGEN ---
This patient, Michelle Rogel, was admitted to IMU Room 211-01 on 10/10/23 at 0120. Patient/family oriented to hospital policies and general routines including ID bracelet, bed and alarms, visiting hours, pain management, procedures, bathroom and other care routines, personal items, smoking policy, room service/diet, and visiting hours. Information on how to activate the Rapid Response Team has been discussed. Patient/Family are encouraged to report perceived risks to care and to ask questions if they do not understand what they are told or what they should do.
[2023-10-10 00:24] LABS: Troponin I < 0.012 ng/mL (0.000-0.034)
[2023-10-10] MEDS: clonazePAM (*CRX) 0.5 MG TABLET 1 MG PO ×2 (03:29→20:27)
[2023-10-10] MEDS: ATORVASTATIN 40 MG TABLET PO ×2 (03:29→20:27)
[2023-10-10] MEDS: GABAPENTIN 300 MG CAPSULE 600 MG PO ×2 (03:30→20:28)
[2023-10-10] MEDS: FAMOTIDINE 20 MG TABLET 40 MG PO ×2 (03:30→20:28)
[2023-10-10] MEDS: MIRTAZAPINE SOLTAB 15 MG TAB.DISPER PO ×2 (03:31→20:28)
[2023-10-10] MEDS: PRAMIPEXOLE 0.25 MG TABLET PO ×2 (03:31→20:29)
[2023-10-10] MEDS: traZODone HCL 50 MG TABLET 200 MG PO ×2 (03:32→20:29)
[2023-10-10] MEDS: PRAMIPEXOLE 1 MG TABLET PO ×2 (03:36→20:30)
[2023-10-10 05:12] LABS: Troponin I < 0.012 ng/mL (0.000-0.034)
[2023-10-10] MEDS: LEVOTHYROXINE SODIUM 150 MCG TABLET PO (06:40)
[2023-10-10] MEDS: DOXYCYCLINE HYCLATE 100 MG TABLET PO ×2 (08:53→20:30)
[2023-10-10] MEDS: PANTOPRAZOLE 40 MG TABLET PO ×2 (08:53→17:28)
[2023-10-10] MEDS: DULoxetine HCL 30 MG CAPSULE.DR PO (08:53)
[2023-10-10] MEDS: buPROPion HCL SR (12 HR) 150 MG TAB PO ×2 (08:53→20:27)
[2023-10-10] MEDS: LORATADINE 10 MG TABLET PO (08:53)
[2023-10-10] MEDS: MIRABEGRON 25 MG ER TABLET PO (08:53)
[2023-10-10] MEDS: METOPROLOL TARTRATE 25 MG TABLET PO (08:53)
[2023-10-10] MEDS: CALCIUM/VITAMIN D 500 MG/5 MCG (200 I.U.) TABLET PO (08:53)
[2023-10-10] MEDS: GABAPENTIN 100 MG CAPSULE PO ×2 (08:53→17:28)
[2023-10-10] MEDS: FUROSEMIDE INJ 40 MG/4 ML VIAL IV PUSH ×2 (08:57→20:28)
--- NOTE | 2023-10-10 10:59 | PHAR ---
TALKED TO DR SMITH. HE OK'D CHLORP/HYDROCODONE PRN USE WITH GABAPENTIN, CLONAZEPAM & OXYCODONE.
[2023-10-10] MEDS: oxyCODONE HCL (*CRX) 5 MG TAB IR PO (11:07)
[2023-10-10] MEDS: FERROUS GLUCONATE 324 MG TABLET 648 MG PO (12:21)
[2023-10-10] MEDS: VALSARTAN 160 MG TABLET 320 MG PO (12:21)
--- NOTE | 2023-10-10 14:15 | PM.CNCAR ---
Assessment and Plan Assessment and plan (1) Atrial fibrillation with RVR: Code(s): I48.91 - Unspecified atrial fibrillation Status: Acute Assessment and Plan: Chronic atrial fibrillation rate controlled with metoprolol at home. She has molina placed on a diltiazem drip for additional rate control. Will increase metoprolol to 37.5mg b.i.d. and discontinue diltiazem drip. Continue to monitor on telemetry. (2) Acute exacerbation of congestive heart failure: Code(s): I50.9 - Heart failure, unspecified Status: Acute Assessment and Plan: Agree with IV furosemide. Continue this for now. Supplemental O2 as needed. Monitor intake and output. Daily weights. (3) CHARLES (obstructive sleep apnea): Code(s): G47.33 - Obstructive sleep apnea (adult) (pediatric) Status: Acute Assessment and Plan: Continue with CPAP History of Present Illness History of Present Illness Consult date/time: 10/10/23 14:15 Requesting physician: Joby Yee MD Consult reason: atrial fibrillation Reason For Visit: Acute exacerbation of CHF, Pnemonia, Atrial fibril Narrative: Michelle Rogel is an 82 year old female with persistent atrial fibrillation, pulmonary hypertension, hypertension, dyslipidemia, and HFpEF.? She follows with Dr. Field at [facility].? This is a patient who presents to the hospital with a chief complaint of shortness of breath. Shortness of breath started about a week ago. No edema, orthopnea. She does complain of chest pressure that has been ongoing for many years. Feeling somewhat better after receiving diuretics. Her atrial fibrillation is rate controlled on metoprolol and a small dose of IV diltiazem. Review of Systems Review of Systems: All systems reviewed & are unremarkable except as noted in HPI and below PMFSH Past Medical History Medical History Anemia Anxiety Chronic anticoagulation Chronic diastolic congestive heart failure Echocardiogram in October 2018 demonstrated hyperdynamic left ventricular function with an ejection fraction of 71%, moderate left atrial enlargement, and grade 2 diastolic dysfunction. Chronic pain syndrome Chronic wound infection of abdomen On long-term doxycycline b.i.d. Current use of senior living anticoagulation On Xarelto for stroke prophylaxis given paroxysmal atrial fibrillation. Depression Essential hypertension Gastroesophageal reflux disease Hyperlipidemia Macular degeneration Morbid obesity Obstructive sleep apnea on CPAP Overactive bladder Persistent atrial fibrillation Pneumonia due to COVID-19 virus (03/2020) Postsurgical hypothyroidism Restless leg syndrome Shingles Thyroid cancer Status post thyroidectomy. Surgical History Surgical History History of appendectomy (2003) Complicated postoperative course with chronic midline abdominal wound. History of bilateral cataract extraction History of hernia repair History of orthopedic surgery ORIF right lower extremity fracture. History of ovarian cystectomy History of spinal surgery History of thyroidectomy History of total abdominal hysterectomy History of total bilateral knee replacement Family History Family History Mother Alzheimer's dementia Hypertension Father Acute myocardial infarction Sibling Hypertension Son Heart attack Social History Social History Social History: Surrogate decision maker: Prince Juan F, . Code status: Full code. Smoking status: Never smoker Second hand tobacco smoke exposure: No Alcohol intake: never Substance use: never Substance use type: does not use Do You Feel Safe in your Home?: Yes Lack of Transportation: No Lack of Food: Never True Current Housing: I Have Housing Concerned About Futur
[2023-10-10] MEDS: RIVAROXABAN 20 MG TABLET PO (17:28)
[2023-10-10] MEDS: ONDANSETRON INJ 4 MG/2 ML VIAL IV PUSH (19:00)
--- NOTE | 2023-10-10 20:00 | PM.IMPN ---
Progress Note: A&P Assessment and Plan (1) Acute and chronic respiratory failure with hypoxia: Code(s): J96.21 - Acute and chronic respiratory failure with hypoxia Status: Acute Assessment and Plan: admit to IMU under full inpatient status continuous BiPAP, to be be weaned off as tolerated (2) Paroxysmal atrial fibrillation: Code(s): I48.0 - Paroxysmal atrial fibrillation Status: Chronic Assessment and Plan: on DIltiazem drip Cardiology consult given for evaluate (3) Acute exacerbation of congestive heart failure: Code(s): I50.9 - Heart failure, unspecified Status: Acute Assessment and Plan: diurese as needed Strict input and output monitoring (4) Atrial fibrillation with RVR: Code(s): I48.91 - Unspecified atrial fibrillation Status: Acute Assessment and Plan: patient started on diltiazem drip Follow-up closely as per cardiology (5) Generalized weakness: Code(s): R53.1 - Weakness Status: Acute Assessment and Plan: likely secondary to chronic illness and deconditioning PT/OT evaluation ordered (6) Morbid obesity with BMI of 50.0-59.9, adult: Code(s): E66.01 - Morbid (severe) obesity due to excess calories; Z68.43 - Body mass index [BMI] 50.0-59.9, adult Status: Acute Assessment and Plan: lifestyle and diet modifications (7) CHARLES (obstructive sleep apnea): Code(s): G47.33 - Obstructive sleep apnea (adult) (pediatric) Status: Acute Assessment and Plan: Continue with BiPAP (8) Chronic wound infection of abdomen: Qualifiers: Encounter type: subsequent encounter Qualified Code(s): S31.109D - Unspecified open wound of abdominal wall, unspecified quadrant without penetration into peritoneal cavity, subsequent encounter; L08.9 - Local infection of the skin and subcutaneous tissue, unspecified Code(s): S31.109A - Unspecified open wound of abdominal wall, unspecified quadrant without penetration into peritoneal cavity, initial encounter; L08.9 - Local infection of the skin and subcutaneous tissue, unspecified Status: Acute Assessment and Plan: local care Plan ? Patient seen and examined at bedside during my morning rounds ? Collaborated with patient's nurse at the bedside in detail and addressed all concerns ? Labs, electrolytes, radiology, investigations and test results reviewed ? Consult/Nursing/Ancilliary notes on the chart reviewed and appreciated ? Spoke with patient/family at the bedside and answered all the questions that they had Repeat labs in a.m. Electrolyte replacement as per protocol. Patient will be monitored very closely on the floor. Further recommendations as per the hospital course. Time Spent With Patient Time with patient: 15 - 25 minutes Subjective Date/time seen: 10/10/23 20:01 Interval history: Patient with the known CHF with multiple exacerbations and hospital admissions, came again with worsening shortness of breath. Started on IV diuresis. Cardiology consulted Review of Systems Review of Systems: 14 systems were reviewed with pertinent positives and negatives per HPI. Except as documented in the HPI/progress notes, all other systems were reviewed and are negative. All systems reviewed & are unremarkable except as noted in HPI and below ROS unobtainable: Yes other ( patient on BiPAP) Exam Narrative: PHYSICAL EXAMINATION: Vital signs: Please see the chart General physical exam: Morbidly cooperative with exam, appears to be weak tired and fatigued Head/eyes: Atraumatic, EOMI, PERRLA ENT: Moist mucous membranes, nasal passages clear Neck: Supple, full range of motion, trachea midline CVS: S1 + S2, regular rate and rhythm, no murmurs Respiratory: Bilaterally decreased air entry in both lung guzman, mild B/L crackles, symmetric chest expansion, + scattered bilateral rales Abdomen: Soft, non-tender, bowel sounds +ve, no org
[2023-10-10] MEDS: METOPROLOL TARTRATE 12.5 MG TABLET 37.5 MG PO (20:27)
[2023-10-10] MEDS: AZITHROMYCIN 500 MG/NS 250 ML 500 MG/250 ML BAG 250 MG IVPB (21:08)
[2023-10-11] VITALS (17 sets, daily range): BP systolic 131–139; BP diastolic 64–103; PULSE 70–102; RESP 12–22; TEMP 35.9–36.5; O2SAT 90–100
[2023-10-11 04:33] LABS: Basophils Percent Auto 0.2 % (0.2-1.2); Eosinophils Percent Auto 0.2 % (0-4.4); Hematocrit 39.4 % (37.0-47.0); Hemoglobin 12.4 g/dL (12.0-15.0); Immature Granulocyte Absolute 0.02 K/mm3 (0.00-0.031); Immature Granulocyte Percent A 0.4 % (0-0.5); Immature Platelet Fraction Pct 3.1 % (0.9-11.2); Lymphocytes Percent Auto 15.4 % (18.3-44.2); Mean Corpuscular HGB Conc 31.5 g/dl (32-36); Mean Corpuscular Hemoglobin 32.3 pg (26-34); Mean Corpuscular Volume 102.6 fl (80-100); Mean Platelet Volume 11.3 fl (7.4-10.4); Monocytes Absolute Auto 0.3 K/mm3 (0.1-0.6); Monocytes Percent Auto 5.2 % (2.6-8.5); Neutrophils Absolute Auto 4.1 K/mm3 (1.3-6.7); Neutrophils Percent Auto 78.6 % (45.5-73.1); Platelet Count Result 102 k/mm3 (150-375); Red Blood Count 3.84 M/mm3 (4.2-5.4); Red Cell Distribution Width 13.7 % (11.5-14.5); White Blood Count 5.2 K/mm3 (4.5-10.0)
[2023-10-11 04:45] LABS: Anion Gap 3 mmol/L (4-12); Blood Urea Nitrogen 28 mg/dL (7-17); Calcium 8.5 mg/dL (8.4-10.2); Carbon Dioxide 39 mmol/L (22-30); Chloride 95 mmol/L (98-107); Estimated CRCL calculation 66 ml/min; Estimated Glomerular Filt Rate > 60; Glucose 90 mg/dL (65-110); Phosphorus 3.8 mg/dL (2.5-4.5); Potassium 4.6 mmol/L (3.4-5.0); Sodium 137 mmol/L (137-145)
[2023-10-11 04:48] LABS: Anisocytosis 1+; Hypochromasia 1+; Microcytosis 1+ (NORMAL); Platelet Estimate Slightly Decreased (Adequate)
[2023-10-11 04:49] LABS: Poikilocytosis 1+; Schistocytes None Seen
[2023-10-11] MEDS: LEVOTHYROXINE SODIUM 150 MCG TABLET PO (06:41)
[2023-10-11] MEDS: GABAPENTIN 100 MG CAPSULE PO ×2 (08:46→18:36)
[2023-10-11] MEDS: METOPROLOL TARTRATE 12.5 MG TABLET 37.5 MG PO ×2 (08:46→20:39)
[2023-10-11] MEDS: FERROUS GLUCONATE 324 MG TABLET 648 MG PO (08:46)
[2023-10-11] MEDS: CALCIUM/VITAMIN D 500 MG/5 MCG (200 I.U.) TABLET PO (08:47)
[2023-10-11] MEDS: DULoxetine HCL 30 MG CAPSULE.DR PO (08:47)
[2023-10-11] MEDS: oxyCODONE HCL (*CRX) 5 MG TAB IR PO ×2 (08:47→15:00)
[2023-10-11] MEDS: buPROPion HCL SR (12 HR) 150 MG TAB PO ×2 (08:47→20:40)
[2023-10-11] MEDS: PANTOPRAZOLE 40 MG TABLET PO ×2 (08:47→18:36)
[2023-10-11] MEDS: VALSARTAN 160 MG TABLET 320 MG PO (08:47)
[2023-10-11] MEDS: MIRABEGRON 25 MG ER TABLET PO (08:47)
[2023-10-11] MEDS: FUROSEMIDE INJ 40 MG/4 ML VIAL IV PUSH ×2 (08:48→20:41)
[2023-10-11] MEDS: DOXYCYCLINE HYCLATE 100 MG TABLET PO ×2 (08:48→20:40)
[2023-10-11] MEDS: LORATADINE 10 MG TABLET PO (08:48)
[2023-10-11] MEDS: LOPERAMIDE HCL 2 MG CAPSULE PO (10:26)
--- NOTE | 2023-10-11 17:45 | PM.IMPN ---
Progress Note: A&P Assessment and Plan (1) Acute and chronic respiratory failure with hypoxia: Code(s): J96.21 - Acute and chronic respiratory failure with hypoxia Status: Acute Assessment and Plan: admit to IMU under full inpatient status continuous BiPAP, weaned off as tolerated Patient now on oxygen 4-5 L per minute by nasal cannula (2) Paroxysmal atrial fibrillation: Code(s): I48.0 - Paroxysmal atrial fibrillation Status: Chronic Assessment and Plan: on DIltiazem drip, to be weaned off as tolerated Cardiology consult given for evaluation (3) Acute exacerbation of congestive heart failure: Code(s): I50.9 - Heart failure, unspecified Status: Acute Assessment and Plan: Continue with IV diuresis Strict input and output monitoring (4) Atrial fibrillation with RVR: Code(s): I48.91 - Unspecified atrial fibrillation Status: Acute Assessment and Plan: Patient started on diltiazem drip to be weaned off as tolerated Follow-up closely as per cardiology (5) Generalized weakness: Code(s): R53.1 - Weakness Status: Acute Assessment and Plan: Likely secondary to chronic illness and deconditioning PT/OT evaluation ordered (6) Morbid obesity with BMI of 50.0-59.9, adult: Code(s): E66.01 - Morbid (severe) obesity due to excess calories; Z68.43 - Body mass index [BMI] 50.0-59.9, adult Status: Acute Assessment and Plan: lifestyle and diet modifications (7) CHARLES (obstructive sleep apnea): Code(s): G47.33 - Obstructive sleep apnea (adult) (pediatric) Status: Acute Assessment and Plan: Continue with BiPAP (8) Chronic wound infection of abdomen: Qualifiers: Encounter type: subsequent encounter Qualified Code(s): S31.109D - Unspecified open wound of abdominal wall, unspecified quadrant without penetration into peritoneal cavity, subsequent encounter; L08.9 - Local infection of the skin and subcutaneous tissue, unspecified Code(s): S31.109A - Unspecified open wound of abdominal wall, unspecified quadrant without penetration into peritoneal cavity, initial encounter; L08.9 - Local infection of the skin and subcutaneous tissue, unspecified Status: Acute Assessment and Plan: local care Wound care consult given Plan ? Patient seen and examined at bedside during my morning rounds ? Collaborated with patient's nurse at the bedside in detail and addressed all concerns ? Labs, electrolytes, radiology, investigations and test results reviewed ? Consult/Nursing/Ancilliary notes on the chart reviewed and appreciated ? Spoke with patient/family at the bedside and answered all the questions that they had Repeat labs in a.m. Electrolyte replacement as per protocol. Patient will be monitored very closely on the floor. Further recommendations as per the hospital course. Time Spent With Patient Time with patient: 15 - 25 minutes Subjective Date/time seen: 10/11/23 17:45 Interval history: Patient with the known CHF with multiple exacerbations and hospital admissions, admitted gain with worsening shortness of breath. Patient is slowly being weaned off BiPaP. Continue with IV diuretics. Follow-up closely by Cardiology. Review of Systems Review of Systems: 14 systems were reviewed with pertinent positives and negatives per HPI. Except as documented in the HPI/progress notes, all other systems were reviewed and are negative. All systems reviewed & are unremarkable except as noted in HPI and below Exam Narrative: PHYSICAL EXAMINATION: Vital signs: Please see the chart General physical exam: Morbidly cooperative with exam, appears to be weak tired and fatigued Head/eyes: Atraumatic, EOMI, PERRLA ENT: Moist mucous membranes, nasal passages clear Neck: Supple, full range of motion, trachea midline CVS: S1 + S2, regular rate and rhythm, no murmurs Respiratory: Bilaterally decreased
[2023-10-11] MEDS: RIVAROXABAN 20 MG TABLET PO (18:36)
[2023-10-11] MEDS: GABAPENTIN 300 MG CAPSULE 600 MG PO (20:39)
[2023-10-11] MEDS: MIRTAZAPINE SOLTAB 15 MG TAB.DISPER PO (20:39)
[2023-10-11] MEDS: ATORVASTATIN 40 MG TABLET PO (20:40)
[2023-10-11] MEDS: PRAMIPEXOLE 1 MG TABLET PO (20:40)
[2023-10-11] MEDS: FAMOTIDINE 20 MG TABLET 40 MG PO (20:40)
[2023-10-11] MEDS: traZODone HCL 50 MG TABLET 200 MG PO (20:40)
[2023-10-11] MEDS: clonazePAM (*CRX) 0.5 MG TABLET 1 MG PO (20:40)
[2023-10-11] MEDS: PRAMIPEXOLE 0.25 MG TABLET PO (20:40)
[2023-10-11] MEDS: AZITHROMYCIN 500 MG/NS 250 ML 500 MG/250 ML BAG 250 MG IVPB (21:09)
[2023-10-12] VITALS (18 sets, daily range): BP systolic 91–176; BP diastolic 38–132; PULSE 65–95; RESP 16–94; TEMP 35.6–36.6; O2SAT 14–100
[2023-10-12 04:31] LABS: Basophils Percent Auto 0.5 % (0.2-1.2); Eosinophils Absolute Auto 0.2 K/mm3 (0-0.3); Eosinophils Percent Auto 2.5 % (0-4.4); Hematocrit 38.6 % (37.0-47.0); Hemoglobin 11.7 g/dL (12.0-15.0); Immature Granulocyte Absolute 0.02 K/mm3 (0.00-0.031); Immature Granulocyte Percent A 0.3 % (0-0.5); Lymphocytes Absolute Auto 1.25 K/mm3 (0.9-3.2); Lymphocytes Percent Auto 19.7 % (18.3-44.2); Mean Corpuscular HGB Conc 30.3 g/dl (32-36); Mean Corpuscular Hemoglobin 31.8 pg (26-34); Mean Corpuscular Volume 104.9 fl (80-100); Mean Platelet Volume 11.1 fl (7.4-10.4); Monocytes Absolute Auto 0.6 K/mm3 (0.1-0.6); Neutrophils Absolute Auto 4.3 K/mm3 (1.3-6.7); Nucleated Red Blood Cells Perc 0.5 % (0.0-0.2); Platelet Count Result 131 k/mm3 (150-375); Red Blood Count 3.68 M/mm3 (4.2-5.4); Red Cell Distribution Width 13.8 % (11.5-14.5); White Blood Count 6.4 K/mm3 (4.5-10.0)
[2023-10-12 06:02] LABS: Anion Gap 3 mmol/L (4-12); Blood Urea Nitrogen 34 mg/dL (7-17); Calcium 8.3 mg/dL (8.4-10.2); Carbon Dioxide 36 mmol/L (22-30); Chloride 98 mmol/L (98-107); Estimated CRCL calculation 58 ml/min; Estimated Glomerular Filt Rate > 60; Glucose 76 mg/dL (65-110); Potassium 3.9 mmol/L (3.4-5.0); Sodium 137 mmol/L (137-145)
[2023-10-12] MEDS: LEVOTHYROXINE SODIUM 150 MCG TABLET PO (06:19)
[2023-10-12] MEDS: FERROUS GLUCONATE 324 MG TABLET 648 MG PO (08:57)
[2023-10-12] MEDS: VALSARTAN 160 MG TABLET 320 MG PO (08:57)
[2023-10-12] MEDS: DULoxetine HCL 30 MG CAPSULE.DR PO (08:58)
[2023-10-12] MEDS: buPROPion HCL SR (12 HR) 150 MG TAB PO ×2 (08:58→20:08)
[2023-10-12] MEDS: PANTOPRAZOLE 40 MG TABLET PO ×2 (08:58→18:35)
[2023-10-12] MEDS: GABAPENTIN 100 MG CAPSULE PO ×2 (08:58→18:35)
[2023-10-12] MEDS: DOXYCYCLINE HYCLATE 100 MG TABLET PO ×2 (08:58→20:08)
[2023-10-12] MEDS: CALCIUM/VITAMIN D 500 MG/5 MCG (200 I.U.) TABLET PO (08:59)
[2023-10-12] MEDS: LORATADINE 10 MG TABLET PO (08:59)
[2023-10-12] MEDS: FUROSEMIDE INJ 40 MG/4 ML VIAL IV PUSH (08:59)
[2023-10-12] MEDS: MIRABEGRON 25 MG ER TABLET PO (08:59)
[2023-10-12] MEDS: METOPROLOL TARTRATE 12.5 MG TABLET 37.5 MG PO (10:47)
[2023-10-12] MEDS: guaiFENesin/DEXTROMETHORPHAN 10 ML UDC PO (10:47)
--- NOTE | 2023-10-12 10:49 | PCPTNOTE ---
Attempted to see patient for PT, however patient refused. Patient did not really give reason why.
--- NOTE | 2023-10-12 12:43 | PM.PNCARD ---
Progress Note: A&P Assessment and Plan (1) Atrial fibrillation with RVR: Code(s): I48.91 - Unspecified atrial fibrillation Status: Acute Assessment and Plan: Was initially on IV Diltiazem, however, now is rate controlled on PO Metoprolol 37.5mg BID. Will change Metoprolol to 50mg BID to make it easier dosing to avoid cutting pills in half. Continue Xarelto for anticoagulation. (2) Acute on chronic diastolic congestive heart failure: Code(s): I50.33 - Acute on chronic diastolic (congestive) heart failure Status: Acute Assessment and Plan: Improved with IV diuresis. Back on home oxygen requirement. Will change IV Lasix to Lasix 40mg once daily. (3) Acute and chronic respiratory failure with hypoxia: Code(s): J96.21 - Acute and chronic respiratory failure with hypoxia Status: Acute Assessment and Plan: Improved. Now back on home oxygen requirement of 4L. (4) Chronic anticoagulation: Code(s): Z79.01 - tube cutter (current) use of anticoagulants Status: Acute Assessment and Plan: Continue Xarelto. (5) CHARLES (obstructive sleep apnea): Code(s): G47.33 - Obstructive sleep apnea (adult) (pediatric) Status: Acute Assessment and Plan: CPAP at night. (6) Essential hypertension: Code(s): I10 - Essential (primary) hypertension Status: Chronic Assessment and Plan: Stable. Continue Metoprolol, Lasix, Valsartan (7) Hyperlipidemia: Qualifiers: Hyperlipidemia type: unspecified Qualified Code(s): E78.5 - Hyperlipidemia, unspecified Code(s): E78.5 - Hyperlipidemia, unspecified Status: Chronic Assessment and Plan: Continue high intensity statin. Plan Cardiology will sign off at this time. Please call us back if needed. Patient to follow up with her primary global marketing specialist after hospital discharge. Subjective Date/time seen: 10/12/23 12:43 Interval history: Reason for visit: CHF, atrial fibrillation with RVR HPI: Michelle Rogel is an 82 year old female with persistent atrial fibrillation, pulmonary hypertension, hypertension, dyslipidemia, and HFpEF.? She follows with Dr. Field at [facility].? This is a patient who presents to the hospital with a chief complaint of shortness of breath.? Shortness of breath started about a week ago.? No edema, orthopnea.? She does complain of chest pressure that has been ongoing for many years.? Feeling somewhat better after receiving diuretics.? Her atrial fibrillation is rate controlled on Metoprolol and a small dose of IV Diltiazem. Date of service 10/11: Has a cough this morning. No shortness of breath, back on her home requirement of oxygen. Review of Systems Review of Systems: All systems reviewed & are unremarkable except as noted in HPI and below (HPI) Exam Const: General: comfortable and no acute distress Other: Morbildy obese female Eyes: General: appearance normal, both eyes and all related structures Sclera: sclerae normal Neck: Neck: supple Resp: Effort & Inspection: normal respiratory effort Other: Diminished sounds at the bases Cardio: Rhythm: abnormal rhythm irregularly irregular Other: No lower extremity edema Neuro: Speech: normal speech Psych: Mental Status: mental status grossly normal Affect: normal affect Objective Data Vital Signs Vital Signs: Vital Signs - 24 hr 10/11/23 13:30 10/11/23 14:00 10/11/23 15:16 Temperature Pulse Rate 84 Respiratory Rate Blood Pressure Pulse Oximetry Oxygen Delivery Nasal Cannula Nasal Cannula Oxygen Flow Rate 5 4 10/11/23 15:41 10/11/23 16:00 10/11/23 16:00 Temperature 36.5 C Pulse Rate 87 91 Respiratory Rate 20 Blood Pressure 139/101 H Pulse Oximetry 100 98 Oxygen Delivery Nasal Cannula Oxygen Flow Rate 4 10/11/23 18:00 10/11/23 19:56 10/11/23 20:00 Temperature 36.4 C L Pulse Rate 94 100 Respiratory Rate 12 Blood Pre
--- NOTE | 2023-10-12 14:35 | PM.DS ---
DS: Admitting Diagnosis Discharge Date 10/12/2023: Admitting Diagnosis (1) Acute and chronic respiratory failure with hypoxia: ?Code(s): J96.21 - Acute and chronic respiratory failure with hypoxia ?Status:?Acute ?Assessment and Plan: ?admit to IMU ?continuous BiPAP (2) Paroxysmal atrial fibrillation: ?Code(s): I48.0 - Paroxysmal atrial fibrillation ?Status:?Chronic ?Assessment and Plan: on DIltiazem drip (3) Acute exacerbation of congestive heart failure: ?Code(s): I50.9 - Heart failure, unspecified ?Status:?Acute ?Assessment and Plan: ?diurese as needed (4) Atrial fibrillation with RVR: ?Code(s): I48.91 - Unspecified atrial fibrillation ?Status:?Acute ?Assessment and Plan: ?patient started on diltiazem drip (5) Generalized weakness: ?Code(s): R53.1 - Weakness ?Status:?Acute ?Assessment and Plan: ?likely secondary to chronic illness and deconditioning (6) Morbid obesity with BMI of 50.0-59.9, adult: ?Code(s): E66.01 - Morbid (severe) obesity due to excess calories; Z68.43 - Body mass index [BMI] 50.0-59.9, adult ?Status:?Acute ?Assessment and Plan: lifestyle and diet modifications (7) CHARLES (obstructive sleep apnea): ?Code(s): G47.33 - Obstructive sleep apnea (adult) (pediatric) ?Status:?Acute ?Assessment and Plan: on BiPAP (8) Chronic wound infection of abdomen: ?Qualifiers: ?Encounter type:?subsequent encounter? Qualified Code(s):?S31.109D - Unspecified open wound of abdominal wall, unspecified quadrant without penetration into peritoneal cavity, subsequent encounter; L08.9 - Local infection of the skin and subcutaneous tissue, unspecified ?Code(s): S31.109A - Unspecified open wound of abdominal wall, unspecified quadrant without penetration into peritoneal cavity, initial encounter; L08.9 - Local infection of the skin and subcutaneous tissue, unspecified ?Status:?Acute ?Assessment and Plan: local care (9) Pneumonia: ?Code(s): J18.9 - Pneumonia, unspecified organism ?Status:?Acute ?Assessment and Plan: ? Started on antibiotics ?await cultures DS: Discharge Diagnosis Discharge Diagnosis (1) Acute and chronic respiratory failure with hypoxia: Code(s): J96.21 - Acute and chronic respiratory failure with hypoxia Status: Acute Assessment and Plan: admit to IMU under full inpatient status continuous BiPAP, weaned off as tolerated Patient now on oxygen 4-5 L per minute by nasal cannula (2) Paroxysmal atrial fibrillation: Code(s): I48.0 - Paroxysmal atrial fibrillation Status: Chronic Assessment and Plan: on DIltiazem drip, to be weaned off as tolerated Cardiology consult given for evaluation (3) Acute exacerbation of congestive heart failure: Code(s): I50.9 - Heart failure, unspecified Status: Acute Assessment and Plan: Continue with IV diuresis Strict input and output monitoring (4) Atrial fibrillation with RVR: Code(s): I48.91 - Unspecified atrial fibrillation Status: Acute Assessment and Plan: Patient started on diltiazem drip to be weaned off as tolerated Follow-up closely as per cardiology (5) Generalized weakness: Code(s): R53.1 - Weakness Status: Acute Assessment and Plan: Likely secondary to chronic illness and deconditioning PT/OT evaluation ordered (6) Morbid obesity with BMI of 50.0-59.9, adult: Code(s): E66.01 - Morbid (severe) obesity due to excess calories; Z68.43 - Body mass index [BMI] 50.0-59.9, adult Status: Acute Assessment and Plan: lifestyle and diet modifications (7) CHARLES (obstructive sleep apnea): Code(s): G47.33 - Obstructive sleep apnea (adult) (pediatric) Status: Acute Assessment and Plan: Continue with BiPAP (8) Chronic wound infection of abdomen: Qualifiers: Encounter type: subsequent encoun
--- NOTE | 2023-10-12 15:03 | PCPTNOTE ---
Attempted to see patient for PT, however patient refused.
[2023-10-12] MEDS: RIVAROXABAN 20 MG TABLET PO (18:35)
[2023-10-12] MEDS: FAMOTIDINE 20 MG TABLET 40 MG PO (20:08)
[2023-10-12] MEDS: GABAPENTIN 300 MG CAPSULE 600 MG PO (20:08)
[2023-10-12] MEDS: LOPERAMIDE HCL 2 MG CAPSULE PO (20:08)
[2023-10-12] MEDS: clonazePAM (*CRX) 0.5 MG TABLET 1 MG PO (20:08)
[2023-10-12] MEDS: ATORVASTATIN 40 MG TABLET PO (20:08)
[2023-10-12] MEDS: MIRTAZAPINE SOLTAB 15 MG TAB.DISPER PO (20:09)
[2023-10-12] MEDS: traZODone HCL 50 MG TABLET 200 MG PO (20:09)
[2023-10-12] MEDS: PRAMIPEXOLE 1 MG TABLET PO (20:09)
[2023-10-12] MEDS: METOPROLOL TARTRATE 50 MG TAB PO (20:09)
[2023-10-12] MEDS: PRAMIPEXOLE 0.25 MG TABLET PO (20:09)
[2023-10-12] MEDS: AZITHROMYCIN 500 MG/NS 250 ML 500 MG/250 ML BAG 250 MG IVPB (22:32)
[2023-10-13] VITALS (11 sets, daily range): BP systolic 130–140; BP diastolic 67–87; PULSE 70–96; RESP 20; TEMP 35.9–36.6; O2SAT 96–100
[2023-10-13 04:38] LABS: Basophils Percent Auto 0.3 % (0.2-1.2); Eosinophils Absolute Auto 0.2 K/mm3 (0-0.3); Eosinophils Percent Auto 3.4 % (0-4.4); Hemoglobin 11.5 g/dL (12.0-15.0); Immature Granulocyte Absolute 0.02 K/mm3 (0.00-0.031); Immature Granulocyte Percent A 0.3 % (0-0.5); Lymphocytes Absolute Auto 1.02 K/mm3 (0.9-3.2); Lymphocytes Percent Auto 16.6 % (18.3-44.2); Mean Corpuscular HGB Conc 31.1 g/dl (32-36); Mean Corpuscular Hemoglobin 31.8 pg (26-34); Mean Corpuscular Volume 102.2 fl (80-100); Monocytes Absolute Auto 0.6 K/mm3 (0.1-0.6); Monocytes Percent Auto 10.3 % (2.6-8.5); Neutrophils Absolute Auto 4.2 K/mm3 (1.3-6.7); Neutrophils Percent Auto 69.1 % (45.5-73.1); Platelet Count Result 102 k/mm3 (150-375); Red Blood Count 3.62 M/mm3 (4.2-5.4); Red Cell Distribution Width 13.6 % (11.5-14.5); White Blood Count 6.1 K/mm3 (4.5-10.0)
[2023-10-13 04:52] LABS: Blood Urea Nitrogen 33 mg/dL (7-17); Calcium 8.2 mg/dL (8.4-10.2); Carbon Dioxide > 40 mmol/L (22-30); Chloride 96 mmol/L (98-107); Estimated CRCL calculation 58 ml/min; Estimated Glomerular Filt Rate > 60; Glucose 86 mg/dL (65-110); Potassium 3.6 mmol/L (3.4-5.0); Sodium 139 mmol/L (137-145)
[2023-10-13] MEDS: LEVOTHYROXINE SODIUM 150 MCG TABLET PO (06:17)
--- NOTE | 2023-10-13 09:09 | PM.DS ---
DS: Admitting Diagnosis Discharge Date 10/13/2023 Admitting Diagnosis Acute on chronic respiratory failure DS: Discharge Diagnosis Discharge Diagnosis (1) Acute and chronic respiratory failure with hypoxia: Code(s): J96.21 - Acute and chronic respiratory failure with hypoxia Status: Acute Assessment and Plan: [place] to be in exacerbation due to pneumonia and acute CHF Required BiPAP during admission, this was weaned Has returned to her baseline oxygen requirement of 4 L (2) Atrial fibrillation with RVR: Code(s): I48.91 - Unspecified atrial fibrillation Status: Acute Assessment and Plan: Seen in consultation by Cardiology Initially required diltiazem drip Transition to p.o. metoprolol 50 mg b.i.d. and remained rate controlled. 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 She feels comfortable to return home and care for herself with the assistance of her and family (6) Pneumonia: Code(s): J18.9 - Pneumonia, unspecified organism Status: Acute Assessment and Plan: Treated appropriately with ceftriaxone and azithromycin during admission with overall improvement Will continue p.o. azithromycin and cefdinir as an outpatient to complete course DS: Summary Hospital Course Hospital Course: Michelle Rogel is an 82-year-old female with a history of chronic respiratory failure, atrial fibrillation on chronic anticoagulation, CHF, obstructive sleep apnea on CPAP, morbid obesity presented to the emergency department on 10/09/2023 with complaints of worsening shortness of breath. She was admitted to the hospitalist service and was seen in consultation by Cardiology. She was treated with BiPAP for her worsening respiratory status, IV diuretics for her acute CHF exacerbation, and IV diltiazem for atrial fibrillation with rapid ventricular response. She had improvement with these therapies and was eventually able to return to her baseline oxygen requirement. She was transitioned back to her p.o. diuretics and p.o. rate controlling medications. She was initially discharged on 10/12/2023, but felt that she was too weak to return home. At this time, she feels improved and feels that she is safe to return home. We discussed worrisome signs and symptoms for which to return and she was educated on her medications. She was discharged in hemodynamically stable condition on 10/13/2023. Time Spent with Patient Time attestation: Total time spent providing and/or coordinating discharge services: Time spent: Greater than 30 minutes Specific discharge activities: 35 minutes Exam Narrative: General: Obese, well-appearing 82-year-old female, sitting up in bed, comfortable, NARD Neuro: awake, alert and oriented x4, speech clear, no focal neuro deficits noted HEENMT: normocephalic, atraumatic, EOMI, sclerae anicteric Respiratory: clear to auscultation bilaterally, nonlabored breathing Cardio: regular rate, irregular rhythm Abdomen: nondistended, normoactive bowel sounds, soft, nontender to palpation Skin: no rashes or lesions, warm and dry Psych: appropriate mood and affect, judgment and insight intact DS: Data Data Completed and Pending Labs
[2023-10-13] MEDS: VALSARTAN 160 MG TABLET 320 MG PO (09:49)
[2023-10-13] MEDS: DOXYCYCLINE HYCLATE 100 MG TABLET PO (09:50)
[2023-10-13] MEDS: FUROSEMIDE 40 MG TABLET PO (09:50)
[2023-10-13] MEDS: LORATADINE 10 MG TABLET PO (09:50)
[2023-10-13] MEDS: CALCIUM/VITAMIN D 500 MG/5 MCG (200 I.U.) TABLET PO (09:50)
[2023-10-13] MEDS: METOPROLOL TARTRATE 50 MG TAB PO (09:50)
[2023-10-13] MEDS: buPROPion HCL SR (12 HR) 150 MG TAB PO (09:50)
[2023-10-13] MEDS: DULoxetine HCL 30 MG CAPSULE.DR PO (09:50)
[2023-10-13] MEDS: MIRABEGRON 25 MG ER TABLET PO (09:50)
[2023-10-13] MEDS: GABAPENTIN 100 MG CAPSULE PO (09:50)
[2023-10-13] MEDS: PANTOPRAZOLE 40 MG TABLET PO (09:50)
[2023-10-13] MEDS: FERROUS GLUCONATE 324 MG TABLET 648 MG PO (09:55)
[2023-10-13] MEDS: guaiFENesin/DEXTROMETHORPHAN 10 ML UDC PO (12:09)
[2023-10-13] MEDS: oxyCODONE HCL (*CRX) 5 MG TAB IR PO (12:09)
[2023-10-13] MEDS: LOPERAMIDE HCL 2 MG CAPSULE PO (13:49)
== END 2023-10-13 13:54 | DRG 291 ==
LOC: ANHED 22:56 → ANHIMU 23:28
PROVIDERS: Admitting Provider Internal Medicine; Emergency Provider Emergency Medicine; Visit Provider Family Medicine
DX: I11.0 Hypertensive heart disease with heart failure (principal); I50.33 Acute on chronic diastolic (congestive) heart failure; J96.21 Acute and chronic respiratory failure with hypoxia; J18.9 Pneumonia, unspecified organism; I48.19 Other persistent atrial fibrillation; E78.5 Hyperlipidemia, unspecified; E66.01 Morbid (severe) obesity due to excess calories; G47.33 Obstructive sleep apnea (adult) (pediatric); G89.4 Chronic pain syndrome; K21.9 Gastro-esophageal reflux disease without esophagitis; Z85.850 Personal history of malignant neoplasm of thyroid; Z79.01 Long term (current) use of anticoagulants; Z90.89 Acquired absence of other organs; Z90.49 Acquired absence of other specified parts of digestive tract; Z98.41 Cataract extraction status, right eye; Z98.42 Cataract extraction status, left eye; Z96.653 Presence of artificial knee joint, bilateral; Z20.822 Contact with and (suspected) exposure to COVID-19
CPT/HCPCS: 36415; 36600; 71045; 80048; 80053; 81001; 82805; 83605; 83690; 83735; 83880; 84100; 84145; 84484; 85025; 85055; 85610; 85730; 87040; 87637; 93005; 96365; 96366; 96367; 96375; 97161; 97166; 99285; A9270; G0378; J0456; J0696; J1940; J2405

== ENCOUNTER 2023-11-02 08:43 | Inpatient (IN) | payer MEDICARE, SELFPAY ==
[2023-11-02] VITALS (24 sets, daily range): BP systolic 131–190; BP diastolic 99–132; PULSE 80–100; RESP 13–25; TEMP 35.6–36.8; O2SAT 85–100; BMI 53.4
--- NOTE | ~2023-11-02 | XR_ITS ---
XR chest 1V portable DATE: 11/02/2023 09:07 INDICATION: Shortness of breath TECHNIQUE: Portable AP chest on 11/02/2023 at 0905 hours COMPARISON: 10/09/2023 level AP chest at 2101 hours FINDINGS: Cardiomegaly, pulmonary vascular congestion or redistribution and bilateral patellae centra l and lower lung zone infiltrates appear relatively unchanged since 10/09/2023, consistent with conges tive heart failure, pulmonary edema. Pneumonia and aspiration are not excluded. Aortic arch calcification. Osteopenia. Severe osteoarthritis at the included right glenohumeral joint. Osteopenia. Resection of the left first rib. Surgical clips overlie the lower cervical area. IMPRESSION: Congestive heart failure, pulmonary edema. Pneumonia or aspiration cannot be excluded. Minimal interval change since 10/09/2023 Reviewed, dictated and finalized at location A.
--- NOTE | ~2023-11-02 | XR_ITS ---
EXAMINATION: XR chest 1V portable DATE: 11/06/2023 10:30 INDICATION: Shortness of breath. TECHNIQUE: A single frontal view of the chest was obtained. COMPARISON: Chest single view 11/04/2023 FINDINGS: There are airspace opacities in the lower lung zones. There is a small right pleural effusi on. No pneumothorax. Cardiomegaly is noted. There are surgical clips in the neck. IMPRESSION: 1. Persistent airspace opacities in the lower lung zones, consistent with atelectasis versus pneumoni a. 2. Small right pleural effusion. 3. Cardiomegaly. Reviewed, dictated and finalized at location A. IMPRESSION: 1. Persistent airspace opacities in the lower lung zones, consistent with atele ctasis versus pneumonia. 2. Small right pleural effusion. 3. Cardiomegaly.
--- NOTE | ~2023-11-02 | CT_ITS ---
EXAMINATION: CT abdomen pelvis w con DATE: 11/08/2023 18:36 INDICATION: Abdominal wall abscess. TECHNIQUE: Computed tomography (CT) of the abdomen and pelvis was performed with 100 mL Omnipaque 350 intravenous contrast. Automated exposure control and iterative reconstruction technique were employe d. The dose-length product was 1382.52 mGy-cm. COMPARISON: CT abdomen and pelvis 01/01/2015 FINDINGS: The visualized portions of the lung bases demonstrate mild atelectasis. No pleural effusion . Cardiomegaly is noted. There is a trace pericardial effusion. There are cysts in the liver measurin g up to 3.6 cm. The gallbladder, spleen, pancreas, and right adrenal gland are normal. There is a 16 mm mass in left adrenal gland measuring low attenuation, consistent with an adenoma. There is mild ri ght hydronephrosis. There are cysts in left kidney measuring up to 2.5 cm. Stool distends the rectum. There is a large volume of stool in the colon. The appendix is normal. There is calcified atheroscle rosis of the aorta and many of the other arteries. There are no pathologically enlarged lymph nodes. There is no free intraperitoneal fluid. There is a surgical changes of anterior abdominal wall. There is a mass in infraumbilical abdominal wall at the midline measuring 7.0 x 4.7 cm. Anterior abdominal wall in the right lower quadrant demonstrates skin thickening and subcutaneous fat stranding, consis tent with inflammation versus scarring. There is internal fixation of left femur. There are changes o f posterior fusion procedure from L3 to L5. There is severe thoracic and lumbar spondylosis. There is mild chronic and loss of multiple thoracic vertebral bodies. IMPRESSION: 1. 7.0 x 4.7 cm mass in infraumbilical abdominal wall at the midline. The differential diagnosis incl udes postsurgical scarring, phlegmon, metastatic disease, and endometriosis. 2. Mild right hydronephrosis. Reviewed, dictated and finalized at location E. IMPRESSION: 1. 7.0 x 4.7 cm mass in infraumbilical abdominal wall at the midline. The diffe rential diagnosis includes postsurgical scarring, phlegmon, metastatic disease, and endometriosis. 2. Mild right hydronephrosis.
--- NOTE | ~2023-11-02 | XR_ITS ---
EXAMINATION: XR chest 1V portable DATE: 11/04/2023 12:37 INDICATION: Shortness of breath. TECHNIQUE: A single frontal view of the chest was obtained. COMPARISON: Chest single view 11/02/2023, chest CT 02/18/2023 FINDINGS: There are airspace opacities in right lower lung zone and left mid and lower lung zones. No pleural effusion or pneumothorax. Cardiomegaly is noted. IMPRESSION: 1. Airspace opacities in right lower lung zone and left mid and lower lung zones with improvement on the left, consistent with atelectasis versus pneumonia. 2. Cardiomegaly. Reviewed, dictated and finalized at location A. IMPRESSION: 1. Airspace opacities in right lower lung zone and left mid and lower lung zone s with improvement on the left, consistent with atelectasis versus pneumonia. 2. Cardiomegaly.
--- NOTE | 2023-11-02 08:53 | ECG_ITS ---
Test Date: 2023-11-02 09:00:33 Measurements Intervals [place] Rate: 99 P: 0 ND: 0 QRS: 67 QRSD: 82 T: 44 QT: 354 QTc: 455 Interpretive Statements ATRIAL FIBRILLATION LOW QRS VOLTAGE IN PRECORDIAL LEADS [QRS DEFLECTION < 1.0 mV IN CHEST LEADS] ABNORMAL RHYTHM ECG Compared to ECG 10/09/2023 23:59:31 NO SIGNIFICANT CHANGE Electronically Signed On 11-03-2023 08:22:35 CDT by Mega Sharp M.D.
[2023-11-02] MEDS: ALBUTEROL SULFATE NEB 2.5 MG/3 ML INH INHALATION (09:31)
--- NOTE | 2023-11-02 09:45 | ED.GENADULT ---
HPI - General Adult General Chief complaint: Shortness of Breath/Dyspnea Stated complaint: sob History of Present Illness HPI narrative: 83-year-old female present to the emergency department from local [place] [facility] for evaluation of worsening shortness of breath. Patient does have history of CHF and is on 4 L of oxygen at all time. Patient is saturating well on her 4 L but does have increased shortness of breath. Related Data Home Medications Medication Instructions Recorded Confirmed bupropion HCl 150 mg tablet,12 hr 150 mg PO BID 02/16/20 11/02/23 sustained-release clonazepam 1 mg tablet 1 mg PO DAILY 02/16/20 11/02/23 gabapentin 100 mg capsule 100 mg PO Q12H PRN Pain 02/16/20 11/02/23 mirtazapine 15 mg disintegrating 15 mg PO HS 02/16/20 11/02/23 tablet rivaroxaban 20 mg tablet (Xarelto) 20 mg PO DAILY 02/16/20 11/02/23 vit C 250 mg-vit E 90 mg-zinc 40 2 tablet PO DAILY 02/16/20 11/02/23 mg-copper 1 [id number] capsule (PreserVision AREDS-2) calcium carbonate 600 mg-vitamin 2 cap PO DAILY 10/15/20 11/02/23 D3 12.5 mcg (500 unit) capsule famotidine 40 mg tablet 40 mg PO HS 10/15/20 11/02/23 mirabegron 25 mg tablet,extended 25 mg PO DAILY 10/15/20 11/02/23 release 24 hr (Myrbetriq) ascorbic acid (vitamin C) 500 mg 500 mg PO DAILY 01/06/23 11/02/23 tablet ferrous gluconate 324 mg (38 mg 648 mg PO DAILY 01/06/23 11/02/23 iron) tablet gabapentin 100 mg capsule 600 mg PO HS 01/06/23 11/02/23 levothyroxine 150 mcg capsule 150 mcg PO QAM 01/06/23 11/02/23 oxycodone 5 mg tablet 5 mg PO Q6H PRN Pain, Moderate 02/17/23 11/02/23 trazodone 100 mg tablet 200 mg PO HS Insomnia 02/21/23 11/02/23 duloxetine 30 mg PO DAILY 05/18/23 11/02/23 omeprazole 40 mg capsule,delayed 40 mg PO DAILY 05/18/23 11/02/23 release potassium chloride 20 mEq oral 20 meq PO DAILY 05/18/23 11/02/23 packet (Klor-Con) valsartan 320 mg tablet 320 mg PO DAILY 05/18/23 11/02/23 hydrocortisone-pramoxine 2.5 %-1 % 1 applic RECTAL Q12H PRN 11/02/23 11/02/23 rectal cream (Analpram-HC) Hemorrhoids hypromellose 2.5 % eye drops 1 drp EACH EYE TID PRN Dry Eye(S) 11/02/23 11/02/23 silver sulfadiazine 1 % topical 1 applic topical DAILY 11/02/23 11/02/23 cream (Silvadene) simethicone 80 mg chewable tablet 80 mg PO Q6H PRN Indigestion 11/02/23 11/02/23 Allergies Allergy/AdvReac Type Severity Reaction Status Date / Time Methotrexate Analogues Allergy Unknown mouth sores Verified 02/17/23 13:43 Sulfa (Sulfonamide Allergy Unknown unknown Verified 02/17/23 13:43 Antibiotics) Review of Systems Review of Systems: All systems reviewed & are unremarkable except as noted in HPI and below PMFSH Past Medical History Medical History Anemia Anxiety Chronic anticoagulation Chronic diastolic congestive heart failure Echocardiogram in October 2018 demonstrated hyperdynamic left ventricular function with an ejection fraction of 71%, moderate left atrial enlargement, and grade 2 diastolic dysfunction. Chronic pain syndrome Chronic wound infection of abdomen On long-term doxycycline b.i.d. Current use of shelter anticoagulation On Xarelto for stroke prophylaxis given paroxysmal atrial fibrillation. Depression Essential hypertension Gastroesophageal reflux disease Hyperlipidemia Macular degeneration Morbid obesity Obstructive sleep apnea on CPAP Overactive bladder Persistent atrial fibrillation Pneumonia due to COVID-19 virus (03/2020) Postsurgical hypothyroidism Restless leg syndrome Shingles Thyroid cancer Status post thyroidectomy. Surgical History Surgical History History of appendectomy (2003) Complicated postoperative course with chronic midline abdominal wound. History of bilateral cataract extraction History of hernia repair History of orthopedic surgery ORIF right lower extremity fracture. History of ovarian cystec
[2023-11-02 10:00] LABS: Alveolar/Arterial O2 Gradient 103.3 mmHg; Base Excess ABG 8.2 mEq/l (+/-2.0); Carboxyhemoglobin 1.4 % THb (0-2.0); Fractional Inspired Oxygen 38 %; HCO3 ABG 36.3 mEq/l (22.0-26.0); Methemoglobin ABG 0.2 %THb (0-1.5); Oxygen Content ABG 16.4 %vol (16.0-22.0); Oxygen Saturation ABG 95.8 % (95.0-100.0); Oxyhemoglobin 94.4 % THb (90.0-100.0); PO2 ABG 87.4 mmHg (80.0-100.0); Total Hemoglobin 12.3 g/dL (12.0-18.0); pH ABG 7.336 (7.350-7.450)
[2023-11-02 10:04] LABS: Device NASAL CANNULA; Liters per Minute 4.5 LPM; PCO2 ABG 69.5 mmHg (35.0-45.0); Site Drawn RIGHT BRACHIAL
[2023-11-02 10:07] LABS: Influenza A QL RT-PCR Negative (Negative); Influenza B QL RT-PCR Negative (Negative); RSV RNA, RT-PCR Negative (Negative); SARS-CoV-2 RNA PCR Negative (Negative)
[2023-11-02 10:12] LABS: Basophils Percent Auto 0.3 % (0.2-1.2); Eosinophils Absolute Auto 0.2 K/mm3 (0-0.3); Eosinophils Percent Auto 2.3 % (0-4.4); Hematocrit 38.3 % (37.0-47.0); Hemoglobin 11.4 g/dL (12.0-15.0); Immature Granulocyte Absolute 0.04 K/mm3 (0.00-0.031); Immature Granulocyte Percent A 0.6 % (0-0.5); Lymphocytes Absolute Auto 0.53 K/mm3 (0.9-3.2); Lymphocytes Percent Auto 7.7 % (18.3-44.2); Mean Corpuscular HGB Conc 29.8 g/dl (32-36); Mean Corpuscular Hemoglobin 31.3 pg (26-34); Mean Corpuscular Volume 105.2 fl (80-100); Mean Platelet Volume 9.4 fl (7.4-10.4); Monocytes Absolute Auto 0.5 K/mm3 (0.1-0.6); Monocytes Percent Auto 7.7 % (2.6-8.5); Neutrophils Absolute Auto 5.6 K/mm3 (1.3-6.7); Neutrophils Percent Auto 81.4 % (45.5-73.1); Platelet Count Result 213 k/mm3 (150-375); Red Blood Count 3.64 M/mm3 (4.2-5.4); Red Cell Distribution Width 16.3 % (11.5-14.5); White Blood Count 6.9 K/mm3 (4.5-10.0)
[2023-11-02 10:21] LABS: Alanine Aminotransferase 14 U/L (6-35); Albumin Level 3.7 g/dL (3.5-5.1); Alkaline Phosphatase 113 U/L (38-126); Aspartate Amino Transferase 21 U/L (14-36); Bilirubin,Total 0.7 mg/dL (0.2-1.3); Blood Urea Nitrogen 15 mg/dL (7-17); Calcium 8.6 mg/dL (8.4-10.2); Carbon Dioxide > 40 mmol/L (22-30); Chloride 98 mmol/L (98-107); Estimated CRCL calculation 71 ml/min; Estimated Glomerular Filt Rate > 60; Glucose 96 mg/dL (65-110); Potassium 4.3 mmol/L (3.4-5.0); Sodium 140 mmol/L (137-145)
[2023-11-02] MEDS: FUROSEMIDE INJ 40 MG/4 ML VIAL IV PUSH (10:25)
[2023-11-02 10:29] LABS: NT Pro B Type Natriuretic Pept 3430 pg/mL (19.9-100)
[2023-11-02 10:45] LABS: Anisocytosis 1+; Macrocytosis 1+ (NORMAL); Platelet Estimate Adequate (Adequate); Schistocytes None Seen
--- NOTE | 2023-11-02 11:43 | PC.NURSE ---
Pt has draining wound to old scar on abd. Has drsg from OR covering area. Also wear splint to Left forearm for pain
--- NOTE | 2023-11-02 12:07 | ADMGEN ---
This patient, Michelle Rogel, was admitted to IMU Room 231-01 at 1157. Patient/family oriented to hospital policies and general routines including ID bracelet, bed and alarms, visiting hours, pain management, procedures, bathroom and other care routines, personal items, smoking policy, room service/diet, and visiting hours. Information on how to activate the Rapid Response Team has been discussed. Patient/Family are encouraged to report perceived risks to care and to ask questions if they do not understand what they are told or what they should do.
--- NOTE | 2023-11-02 14:08 | PM.IMHP ---
H&P: HPI History of Present Illness Date/Time: 11/02/23 14:08 Chief Complaint: shortness of breath Narrative: Mrs. Rogel is an 83-year-old female with a PMHx: CHF, morbid obesity, CHARLES on CPAP, chronic anticoagulation, proximal AFib who presented to the emergency room from [facility] with complaints of ongoing SOB. Patient reports this morning she was unable to catch her breath she states with mild exertion she would become short of breath. Patient states she has a history of home oxygen at 4 L per [place], she denied any chest pain nausea vomiting fever or chills. Of note patient was recently discharged from hospital on 10/13/2023 with diagnosis of acute on chronic respiratory failure with hypoxia. ED Work-up reveals: ABG reveals hypercapnia, chest x-ray with fluid overload bilateral pulmonary edema BNP 3430, viral PCR is negative, BiPAP initiated in the ED, patient given IV Lasix 40 mg IV push, patient EKG reveals atrial fibrillation rate of 99. Review of Systems Review of Systems: All systems reviewed & are unremarkable except as noted in HPI and below PMFSH Past Medical History Medical History Anemia Anxiety Chronic anticoagulation Chronic diastolic congestive heart failure Echocardiogram in October 2018 demonstrated hyperdynamic left ventricular function with an ejection fraction of 71%, moderate left atrial enlargement, and grade 2 diastolic dysfunction. Chronic pain syndrome Chronic wound infection of abdomen On long-term doxycycline b.i.d. 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 Depression Essential hypertension Gastroesophageal reflux disease Hyperlipidemia Macular degeneration Morbid obesity Obstructive sleep apnea on CPAP Overactive bladder Persistent atrial fibrillation Pneumonia due to COVID-19 virus (03/2020) Postsurgical hypothyroidism Restless leg syndrome Shingles Thyroid cancer Status post thyroidectomy. Surgical History Surgical History History of appendectomy (2003) Complicated postoperative course with chronic midline abdominal wound. History of bilateral cataract extraction History of hernia repair History of orthopedic surgery ORIF right lower extremity fracture. History of ovarian cystectomy History of spinal surgery History of thyroidectomy History of total abdominal hysterectomy History of total bilateral knee replacement Family History Family History Mother Alzheimer's dementia Hypertension Father Acute myocardial infarction Sibling Hypertension Son Heart attack Social History Social History Social History: Surrogate decision maker: Prince Rogel, . Code status: Full code. Smoking status: Never smoker Second hand tobacco smoke exposure: No Alcohol intake: never Substance use: never Substance use type: does not use Do You Feel Safe in your Home?: Yes Lack of Transportation: No Lack of Food: Never True Current Housing: I Have Housing Concerned About Future Housing: No Difficulty Paying Gas/Electric Bills: No Difficulty Paying for Meds: No Currently Unemployed: No Education: Associate Degree Difficulty w/ Childcare or Family Care: No Additional living arrangements comments: Lives in [place] with her . They have 3 children. Ambulates with a walker. Occupation/Education: retired Spiritual care concerns: Yes (Evangelical) Meds Home Medications and Allergies Home Medications Medication Instructions Recorded Confirmed Type bupropion HCl 150 mg tablet,12 hr 150 mg PO BID 02/16/20 11/02/23 History sustained-release clonazepam 1 mg tablet 1 mg PO DAILY 02/16/20 11/02/23 History gabapentin 100 mg capsule 10
[2023-11-02 17:18] LABS: Alveolar/Arterial O2 Gradient 75.9 mmHg; Base Excess ABG 13.4 mEq/l (+/-2.0); Fractional Inspired Oxygen 30 %; HCO3 ABG 40.2 mEq/l (22.0-26.0); Oxygen Content ABG 15.7 %vol (16.0-22.0); Oxygen Saturation ABG 92.9 % (95.0-100.0); Oxyhemoglobin 91.3 % THb (90.0-100.0); PO2 ABG 65.6 mmHg (80.0-100.0); PO2 FiO2 Ratio Arterial Blood 2.19 %; Total Hemoglobin 12.2 g/dL (12.0-18.0); pH ABG 7.432 (7.350-7.450)
[2023-11-02 17:26] LABS: Device BIPAP; Expiratory Pressure 7 cmH2O; Inspiratory Pressure 14 cmH2O; PCO2 ABG 61.6 mmHg (35.0-45.0); Site Drawn RIGHT RADIAL
[2023-11-02] MEDS: RIVAROXABAN 20 MG TABLET PO (18:44)
[2023-11-02] MEDS: oxyCODONE HCL (*CRX) 5 MG TAB IR PO (19:42)
[2023-11-02] MEDS: traZODone HCL 50 MG TABLET 200 MG PO (19:48)
[2023-11-02] MEDS: GABAPENTIN 300 MG CAPSULE 600 MG PO (19:48)
[2023-11-02] MEDS: MIRTAZAPINE SOLTAB 15 MG TAB.DISPER PO (19:49)
[2023-11-02] MEDS: METOPROLOL TARTRATE 50 MG TAB PO (19:49)
[2023-11-03] VITALS (21 sets, daily range): BP systolic 118–154; BP diastolic 66–109; PULSE 71–95; RESP 11–22; TEMP 36.2–36.8; O2SAT 90–97
[2023-11-03 04:31] LABS: Basophils Percent Auto 0.5 % (0.2-1.2); Eosinophils Absolute Auto 0.2 K/mm3 (0-0.3); Eosinophils Percent Auto 2.6 % (0-4.4); Hematocrit 41.7 % (37.0-47.0); Hemoglobin 11.9 g/dL (12.0-15.0); Immature Granulocyte Absolute 0.05 K/mm3 (0.00-0.031); Immature Granulocyte Percent A 0.8 % (0-0.5); Lymphocytes Absolute Auto 0.75 K/mm3 (0.9-3.2); Lymphocytes Percent Auto 11.5 % (18.3-44.2); Mean Corpuscular HGB Conc 28.5 g/dl (32-36); Mean Corpuscular Hemoglobin 31.5 pg (26-34); Mean Corpuscular Volume 110.3 fl (80-100); Mean Platelet Volume 9.4 fl (7.4-10.4); Monocytes Absolute Auto 0.8 K/mm3 (0.1-0.6); Monocytes Percent Auto 12.6 % (2.6-8.5); Neutrophils Absolute Auto 4.7 K/mm3 (1.3-6.7); Platelet Count Result 181 k/mm3 (150-375); Red Blood Count 3.78 M/mm3 (4.2-5.4); Red Cell Distribution Width 16.4 % (11.5-14.5); White Blood Count 6.5 K/mm3 (4.5-10.0)
[2023-11-03 04:41] LABS: Anion Gap 4 mmol/L (4-12); Blood Urea Nitrogen 15 mg/dL (7-17); Calcium 8.4 mg/dL (8.4-10.2); Carbon Dioxide 38 mmol/L (22-30); Chloride 98 mmol/L (98-107); Estimated CRCL calculation 66 ml/min; Estimated Glomerular Filt Rate > 60; Glucose 73 mg/dL (65-110); Potassium 3.9 mmol/L (3.4-5.0); Sodium 140 mmol/L (137-145)
[2023-11-03 04:43] LABS: Platelet Estimate Adequate (Adequate)
[2023-11-03 04:45] LABS: Anisocytosis 1+; Macrocytosis 1+ (NORMAL); Ovalocytes 1+; Schistocytes None Seen
[2023-11-03] MEDS: LEVOTHYROXINE SODIUM 150 MCG TABLET PO (05:55)
--- NOTE | 2023-11-03 08:00 | ECG_ITS ---
Test Date: 2023-11-03 07:50:14 Measurements Intervals [place] Rate: 90 P: 0 [place]: 0 QRS: 62 QRSD: 81 T: 11 QT: 372 QTc: 457 Interpretive Statements ATRIAL FIBRILLATION LOW QRS VOLTAGE IN PRECORDIAL LEADS [QRS DEFLECTION < 1.0 mV IN CHEST LEADS] ABNORMAL RHYTHM ECG ABNORMAL ELECTROCARDIOGRAM Compared to ECG 11/02/2023 09:00:33 No significant changes Electronically Signed On 11-03-2023 08:50:43 CDT by Mega Sharp M.D.
[2023-11-03] MEDS: CALCIUM/VITAMIN D 500 MG/5 MCG (200 I.U.) TABLET 1000 MG PO (09:31)
[2023-11-03] MEDS: clonazePAM (*CRX) 0.5 MG TABLET 1 MG PO (09:31)
[2023-11-03] MEDS: buPROPion HCL SR (12 HR) 150 MG TAB PO ×2 (09:31→16:03)
[2023-11-03] MEDS: DULoxetine HCL 30 MG CAPSULE.DR PO (09:31)
[2023-11-03] MEDS: ASCORBIC ACID 500 MG TABLET PO (09:31)
[2023-11-03] MEDS: GABAPENTIN 100 MG CAPSULE PO (09:31)
[2023-11-03] MEDS: POTASSIUM CHLORIDE 20 MEQ PACKET (FOR LIQUID) PO (09:32)
[2023-11-03] MEDS: FERROUS GLUCONATE 324 MG TABLET 648 MG PO (09:32)
[2023-11-03] MEDS: FUROSEMIDE INJ 40 MG/4 ML VIAL IV PUSH ×2 (09:32→16:03)
[2023-11-03] MEDS: PANTOPRAZOLE 40 MG TABLET PO ×2 (09:39→20:46)
[2023-11-03] MEDS: METOPROLOL TARTRATE 50 MG TAB PO ×2 (09:39→20:46)
[2023-11-03] MEDS: VALSARTAN 160 MG TABLET 320 MG PO (09:39)
[2023-11-03] MEDS: oxyCODONE HCL (*CRX) 5 MG TAB IR PO ×3 (09:40→21:34)
[2023-11-03] MEDS: OPTI-GEN TAB 2 TABLET PO (09:40)
[2023-11-03] MEDS: SILVER SULFADIAZINE 1% CR 50 GM JAR (*BKC) 1 APPLIC TOPICAL (09:42)
--- NOTE | 2023-11-03 13:36 | PM.IMPN ---
Progress Note: A&P Assessment and Plan (1) Acute exacerbation of congestive heart failure: Qualifiers: Heart failure type: diastolic Qualified Code(s): I50.33 - Acute on chronic diastolic (congestive) heart failure Code(s): I50.9 - Heart failure, unspecified Status: Acute Assessment and Plan: Acute on chronic, patient from labetalol with complaints of SOB 11/02: BID IV Lasix, patient instructed on need for further diuresis BiPap during the day and night today (2) Atrial fibrillation with RVR: Code(s): I48.91 - Unspecified atrial fibrillation Status: Acute Assessment and Plan: -currently in AFib rate 99, last echocardiogram 05/18/2023, normal LV size mild LVH normal LV systolic function EF 70% -continue telemetry monitoring --continue home medication metoprolol 50mg b.i.d -check EGK p.r.n. for chest pain,sob 11/02: Continue anticoagulation and rate control (3) Respiratory failure with hypoxia and hypercapnia: Qualifiers: Chronicity: acute on chronic Qualified Code(s): J96.21 - Acute and chronic respiratory failure with hypoxia; J96.22 - Acute and chronic respiratory failure with hypercapnia Code(s): J96.91 - Respiratory failure, unspecified with hypoxia; J96.92 - Respiratory failure, unspecified with hypercapnia Status: Acute Assessment and Plan: -admit to IMU under full inpatient status Continue BiPAP to be weaned off as tolerated -recheck ABGs 11/02: Dyspnea on nasal cannula, instructed patient to wear BiPap throughout the day today Recheck ABG tomorrow (4) CHARLES (obstructive sleep apnea): Code(s): G47.33 - Obstructive sleep apnea (adult) (pediatric) Status: Acute Assessment and Plan: -chronic uses CPAP at night (5) Essential hypertension: Code(s): I10 - Essential (primary) hypertension Status: Chronic Assessment and Plan: Chronic, BP 131/99 -continue home medications -check vital signs q.4 hours (6) Morbid obesity with BMI of 50.0-59.9, adult: Code(s): E66.01 - Morbid (severe) obesity due to excess calories; Z68.43 - Body mass index [BMI] 50.0-59.9, adult Status: Acute Assessment and Plan: -low-calorie diet Plan Continue home medications: Levothyroxine 150 mcg p.o. daily mirtazapine 15 mg p.o. HS pantoprazole 40 mg every 12 hours, all p.r.n. medications as ordered VTE Prophylaxis: Xarelto p.o. DIET: Heart healthy Anticipated hospital stay: > 2 days Code Status: Full code Time Spent With Patient Time with patient: Greater than 35 minutes Subjective Date/time seen: 11/03/23 08:36 Interval history: Patient still having dyspnea, may need Bipap throughout the day. Patient refused evening Lasix last night, education provided regarding the need to diurese to help dyspnea. Review of Systems Review of Systems: All systems reviewed & are unremarkable except as noted in HPI and below Exam Narrative: General: A morbidly obese, nontoxic-appearing female lying in bed BiPAP in place HEENT: PERRL, EOMI. Oral mucosa moist. Neck: Supple. No midline cervical tenderness. Respiratory: Moderate labored breathing, diminished lungs with crackles Cardiovascular: Regular rate and rhythm with S1-S2. Gastrointestinal: Abdomen is soft, non-tender, and non-distended with positive bowel sounds. Skin: Warm and dry. Intertriginous folds with yeast odor in groin/abdominal folds Extremities: Left wrist with ortho in soft splint, No cyanosis, clubbing, or edema. Radial and pedal pulses intact. Neurological: Alert and oriented. Cranial nerves 2-12 are grossly intact. No gross focal deficits to casual conversation. Psychiatric: Pleasant and cooperative with normal mood and affect. Judgment and insight intact. Objective Data Vital Signs Vital Signs: Vital Signs - 24 hr 11/02/23 14:04 11/02/23 14:00 11/02/23 16:03 Temperature 35.7 C L Pulse Rate 87 81 87 Respir
[2023-11-03] MEDS: RIVAROXABAN 20 MG TABLET PO (16:03)
[2023-11-03] MEDS: GABAPENTIN 300 MG CAPSULE 600 MG PO (20:45)
[2023-11-03] MEDS: traZODone HCL 50 MG TABLET 200 MG PO (20:45)
[2023-11-03] MEDS: MIRTAZAPINE SOLTAB 15 MG TAB.DISPER PO (20:46)
[2023-11-04] VITALS (16 sets, daily range): BP systolic 128–150; BP diastolic 71–115; PULSE 64–81; RESP 12–20; TEMP 35.8–37.2; O2SAT 92–98
[2023-11-04 04:26] LABS: Basophils Percent Auto 0.4 % (0.2-1.2); Eosinophils Absolute Auto 0.2 K/mm3 (0-0.3); Hematocrit 39.3 % (37.0-47.0); Hemoglobin 12.1 g/dL (12.0-15.0); Immature Granulocyte Absolute 0.04 K/mm3 (0.00-0.031); Immature Granulocyte Percent A 0.6 % (0-0.5); Lymphocytes Absolute Auto 0.93 K/mm3 (0.9-3.2); Lymphocytes Percent Auto 13.8 % (18.3-44.2); Mean Corpuscular HGB Conc 30.8 g/dl (32-36); Mean Corpuscular Hemoglobin 31.6 pg (26-34); Mean Corpuscular Volume 102.6 fl (80-100); Mean Platelet Volume 9.1 fl (7.4-10.4); Monocytes Absolute Auto 0.6 K/mm3 (0.1-0.6); Monocytes Percent Auto 8.6 % (2.6-8.5); Neutrophils Absolute Auto 4.9 K/mm3 (1.3-6.7); Neutrophils Percent Auto 73.6 % (45.5-73.1); Platelet Count Result 198 k/mm3 (150-375); Red Blood Count 3.83 M/mm3 (4.2-5.4); Red Cell Distribution Width 16.3 % (11.5-14.5); White Blood Count 6.7 K/mm3 (4.5-10.0)
[2023-11-04 04:37] LABS: Blood Urea Nitrogen 14 mg/dL (7-17); Calcium 8.6 mg/dL (8.4-10.2); Carbon Dioxide > 40 mmol/L (22-30); Chloride 91 mmol/L (98-107); Estimated CRCL calculation 51 ml/min; Estimated Glomerular Filt Rate 60; Glucose 87 mg/dL (65-110); Magnesium 1.9 mg/dL (1.6-2.3); Potassium 3.5 mmol/L (3.4-5.0); Sodium 138 mmol/L (137-145)
[2023-11-04] MEDS: LEVOTHYROXINE SODIUM 150 MCG TABLET PO (06:37)
[2023-11-04] MEDS: clonazePAM (*CRX) 0.5 MG TABLET 1 MG PO (08:33)
[2023-11-04] MEDS: buPROPion HCL SR (12 HR) 150 MG TAB PO ×2 (08:33→16:22)
[2023-11-04] MEDS: PANTOPRAZOLE 40 MG TABLET PO ×2 (08:33→21:16)
[2023-11-04] MEDS: FERROUS GLUCONATE 324 MG TABLET 648 MG PO (08:33)
[2023-11-04] MEDS: DULoxetine HCL 30 MG CAPSULE.DR PO (08:33)
[2023-11-04] MEDS: VALSARTAN 160 MG TABLET 320 MG PO (08:33)
[2023-11-04] MEDS: CALCIUM/VITAMIN D 500 MG/5 MCG (200 I.U.) TABLET 1000 MG PO (08:33)
[2023-11-04] MEDS: ASCORBIC ACID 500 MG TABLET PO (08:33)
[2023-11-04] MEDS: METOPROLOL TARTRATE 50 MG TAB PO ×2 (08:33→21:16)
[2023-11-04] MEDS: OPTI-GEN TAB 2 TABLET PO (08:33)
[2023-11-04] MEDS: FUROSEMIDE INJ 40 MG/4 ML VIAL IV PUSH ×2 (08:34→16:22)
[2023-11-04] MEDS: POTASSIUM CHLORIDE 20 MEQ PACKET (FOR LIQUID) PO (08:34)
[2023-11-04] MEDS: SILVER SULFADIAZINE 1% CR 50 GM JAR (*BKC) 1 APPLIC TOPICAL (08:35)
[2023-11-04] MEDS: oxyCODONE HCL (*CRX) 5 MG TAB IR PO ×3 (08:36→22:58)
[2023-11-04] MEDS: ONDANSETRON INJ 4 MG/2 ML VIAL IV PUSH (09:54)
--- NOTE | 2023-11-04 10:17 | PM.IMPN ---
Progress Note: A&P Assessment and Plan (1) Respiratory failure with hypoxia and hypercapnia: Qualifiers: Chronicity: acute on chronic Qualified Code(s): J96.21 - Acute and chronic respiratory failure with hypoxia; J96.22 - Acute and chronic respiratory failure with hypercapnia Code(s): J96.91 - Respiratory failure, unspecified with hypoxia; J96.92 - Respiratory failure, unspecified with hypercapnia Status: Acute Assessment and Plan: -admit to IMU under full inpatient status Continue BiPAP to be weaned off as tolerated -recheck ABGs 11/02: Dyspnea on nasal cannula, instructed patient to wear BiPap throughout the day today Recheck ABG tomorrow 11/04/23: secondary to fluid overload and acute on chronic congestive heart failure Continue IV Lasix for continued diuresis Currently on 4L NC which is patient baseline Will get chest x-ray today Plan to move out of IMU today Continue cardiac monitoring Continue PT and OT (2) Acute exacerbation of congestive heart failure: Qualifiers: Heart failure type: diastolic Qualified Code(s): I50.33 - Acute on chronic diastolic (congestive) heart failure Code(s): I50.9 - Heart failure, unspecified Status: Acute Assessment and Plan: Acute on chronic, patient from labetalol with complaints of SOB 11/02: BID IV Lasix, patient instructed on need for further diuresis BiPap during the day and night today 11/04/23: Continue with IV Lasix today Bipap PRN during the day and at HS (3) Atrial fibrillation with RVR: Code(s): I48.91 - Unspecified atrial fibrillation Status: Acute Assessment and Plan: -currently in AFib rate 99, last echocardiogram 05/18/2023, normal LV size mild LVH normal LV systolic function EF 70% -continue telemetry monitoring --continue home medication metoprolol 50mg b.i.d -check EGK p.r.n. for chest pain,sob 11/02: Continue anticoagulation and rate control 11/04/23: No change to current treatment plan (4) CHARLES (obstructive sleep apnea): Code(s): G47.33 - Obstructive sleep apnea (adult) (pediatric) Status: Acute Assessment and Plan: -chronic uses CPAP at night 11/04/23: No change to current treatment plan (5) Essential hypertension: Code(s): I10 - Essential (primary) hypertension Status: Chronic Assessment and Plan: 11/02: Chronic, BP 131/99 -continue home medications -check vital signs q.4 hours 11/04/23: No change to current treatment plan (6) Morbid obesity with BMI of 50.0-59.9, adult: Code(s): E66.01 - Morbid (severe) obesity due to excess calories; Z68.43 - Body mass index [BMI] 50.0-59.9, adult Status: Acute Assessment and Plan: 11/02: -low-calorie diet 11/04/23: No change to current treatment plan Time Spent With Patient Time with patient: Greater than 35 minutes Subjective Date/time seen: 11/04/23 10:17 Interval history: 11/04/23: This is an 83-year-old female who presented to the hospital on 11/02/2023 with shortness of breath. Workup in the hospital included chest x-ray which shows congestive heart failure, pulmonary edema. Initial labs showed a normal white blood cell count of 6.9, hemoglobin 11.4, proBNP 3430. Respiratory panel was negative for influenza a and B, RSV, COVID. ABG shown a pH of 7.336, pCO2 of 69.5. Last echo from 05/18/2023 was reviewed which showed normal LV systolic function with an estimated EF of 70%, moderate pulmonary hypertension. Patient was started on Lasix IV BID for diuresis and was admitted to IMU for Bipap. On examination today patient is alert and oriented x3, sitting in the chair. Patient denies any fever, chills, vomiting, diarrhea, abdominal pain, chest pain. Patient endorses shortness of breath with activity and mildly at rest and nausea today. Labs today are unremarkable. Patient is currently on 4 L nasal cannula which is her baseline. She wears C pap at night at
--- NOTE | 2023-11-04 13:56 | PC.NURSE ---
Pt. arrived to room 325-1 at 13:50. Pt. oriented to unit policies and procedures.
--- NOTE | 2023-11-04 14:41 | PC.NURSE ---
This patient, Michelle Rogel, was transferred to [facility] on 11/04/23 at 1350. Personal belongings sent with patient. Report given to Tova. Appropriate documentation sent with patient.
[2023-11-04] MEDS: RIVAROXABAN 20 MG TABLET PO (16:21)
[2023-11-04] MEDS: traZODone HCL 50 MG TABLET 200 MG PO (21:15)
[2023-11-04] MEDS: GABAPENTIN 300 MG CAPSULE 600 MG PO (21:16)
[2023-11-04] MEDS: MIRTAZAPINE SOLTAB 15 MG TAB.DISPER PO (21:16)
[2023-11-05] VITALS (12 sets, daily range): BP systolic 90–134; BP diastolic 58–74; PULSE 70–102; RESP 13–20; TEMP 35.8–36.8; O2SAT 94–96
[2023-11-05] MEDS: LEVOTHYROXINE SODIUM 150 MCG TABLET PO (05:30)
[2023-11-05 05:42] LABS: Basophils Percent Auto 0.4 % (0.2-1.2); Eosinophils Absolute Auto 0.2 K/mm3 (0-0.3); Eosinophils Percent Auto 3.1 % (0-4.4); Hematocrit 40.5 % (37.0-47.0); Hemoglobin 11.9 g/dL (12.0-15.0); Immature Granulocyte Absolute 0.07 K/mm3 (0.00-0.031); Immature Granulocyte Percent A 0.9 % (0-0.5); Lymphocytes Absolute Auto 0.76 K/mm3 (0.9-3.2); Mean Corpuscular HGB Conc 29.4 g/dl (32-36); Mean Corpuscular Hemoglobin 31.1 pg (26-34); Mean Corpuscular Volume 105.7 fl (80-100); Mean Platelet Volume 9.6 fl (7.4-10.4); Monocytes Absolute Auto 1.1 K/mm3 (0.1-0.6); Monocytes Percent Auto 14.9 % (2.6-8.5); Neutrophils Absolute Auto 5.4 K/mm3 (1.3-6.7); Neutrophils Percent Auto 70.7 % (45.5-73.1); Platelet Count Result 211 k/mm3 (150-375); Red Blood Count 3.83 M/mm3 (4.2-5.4); Red Cell Distribution Width 16.2 % (11.5-14.5); White Blood Count 7.6 K/mm3 (4.5-10.0)
[2023-11-05 05:51] LABS: Anion Gap 6 mmol/L (4-12); Blood Urea Nitrogen 20 mg/dL (7-17); Calcium 8.3 mg/dL (8.4-10.2); Carbon Dioxide 39 mmol/L (22-30); Chloride 91 mmol/L (98-107); Estimated CRCL calculation 46 ml/min; Estimated Glomerular Filt Rate 53; Glucose 115 mg/dL (65-110); Potassium 3.8 mmol/L (3.4-5.0); Sodium 136 mmol/L (137-145)
[2023-11-05 06:08] LABS: Anisocytosis 1+; Macrocytosis 1+ (NORMAL); Ovalocytes 1+; Platelet Estimate Adequate (Adequate); Schistocytes None Seen
[2023-11-05] MEDS: FERROUS GLUCONATE 324 MG TABLET 648 MG PO (08:06)
[2023-11-05] MEDS: DULoxetine HCL 30 MG CAPSULE.DR PO (08:06)
[2023-11-05] MEDS: VALSARTAN 160 MG TABLET 320 MG PO (08:07)
[2023-11-05] MEDS: clonazePAM (*CRX) 0.5 MG TABLET 1 MG PO (08:07)
[2023-11-05] MEDS: METOPROLOL TARTRATE 50 MG TAB PO ×2 (08:07→20:35)
[2023-11-05] MEDS: CALCIUM/VITAMIN D 500 MG/5 MCG (200 I.U.) TABLET 1000 MG PO (08:08)
[2023-11-05] MEDS: buPROPion HCL SR (12 HR) 150 MG TAB PO ×2 (08:08→16:18)
[2023-11-05] MEDS: FUROSEMIDE INJ 40 MG/4 ML VIAL IV PUSH ×2 (08:08→16:18)
[2023-11-05] MEDS: PANTOPRAZOLE 40 MG TABLET PO ×2 (08:08→20:35)
[2023-11-05] MEDS: OPTI-GEN TAB 2 TABLET PO (08:08)
[2023-11-05] MEDS: ASCORBIC ACID 500 MG TABLET PO (08:10)
[2023-11-05] MEDS: oxyCODONE HCL (*CRX) 5 MG TAB IR PO ×2 (08:11→16:17)
[2023-11-05] MEDS: SILVER SULFADIAZINE 1% CR 50 GM JAR (*BKC) 1 APPLIC TOPICAL (08:11)
--- NOTE | 2023-11-05 10:10 | PM.IMPN ---
Progress Note: A&P Assessment and Plan (1) Respiratory failure with hypoxia and hypercapnia: Qualifiers: Chronicity: acute on chronic Qualified Code(s): J96.21 - Acute and chronic respiratory failure with hypoxia; J96.22 - Acute and chronic respiratory failure with hypercapnia Code(s): J96.91 - Respiratory failure, unspecified with hypoxia; J96.92 - Respiratory failure, unspecified with hypercapnia Status: Acute Assessment and Plan: -admit to IMU under full inpatient status Continue BiPAP to be weaned off as tolerated -recheck ABGs 11/02: Dyspnea on nasal cannula, instructed patient to wear BiPap throughout the day today Recheck ABG tomorrow 11/04/23: secondary to fluid overload and acute on chronic congestive heart failure Continue IV Lasix for continued diuresis Currently on 4L NC which is patient baseline Will get chest x-ray today Plan to move out of IMU today Continue cardiac monitoring Continue PT and OT 11/05/23: CXR showing improvement Continue PT and OT Continue cardiac monitoring Will continue with IV Lasix for today, possibly transition back to oral tomorrow (2) Acute exacerbation of congestive heart failure: Qualifiers: Heart failure type: diastolic Qualified Code(s): I50.33 - Acute on chronic diastolic (congestive) heart failure Code(s): I50.9 - Heart failure, unspecified Status: Acute Assessment and Plan: Acute on chronic, patient from labetalol with complaints of SOB 11/02: BID IV Lasix, patient instructed on need for further diuresis BiPap during the day and night today 11/04/23: Continue with IV Lasix today Bipap PRN during the day and at HS 11/05/23: Continue IV lasix today, will likely transition to oral Lasix tomorrow Continue Bipap as needed (3) Atrial fibrillation with RVR: Code(s): I48.91 - Unspecified atrial fibrillation Status: Acute Assessment and Plan: -currently in AFib rate 99, last echocardiogram 05/18/2023, normal LV size mild LVH normal LV systolic function EF 70% -continue telemetry monitoring --continue home medication metoprolol 50mg b.i.d -check EGK p.r.n. for chest pain,sob 11/02: Continue anticoagulation and rate control 11/04/23: No change to current treatment plan (4) CHARLES (obstructive sleep apnea): Code(s): G47.33 - Obstructive sleep apnea (adult) (pediatric) Status: Acute Assessment and Plan: -chronic uses CPAP at night 11/04/23: No change to current treatment plan (5) Essential hypertension: Code(s): I10 - Essential (primary) hypertension Status: Chronic Assessment and Plan: 11/02: Chronic, BP 131/99 -continue home medications -check vital signs q.4 hours 11/04/23: No change to current treatment plan (6) Morbid obesity with BMI of 50.0-59.9, adult: Code(s): E66.01 - Morbid (severe) obesity due to excess calories; Z68.43 - Body mass index [BMI] 50.0-59.9, adult Status: Acute Assessment and Plan: 11/02: -low-calorie diet 11/04/23: No change to current treatment plan Time Spent With Patient Time with patient: 25 - 35 minutes Subjective Date/time seen: 11/05/23 10:10 Interval history: 11/04/23: This is an 83-year-old female who presented to the hospital on 11/02/2023 with shortness of breath. Workup in the hospital included chest x-ray which shows congestive heart failure, pulmonary edema. Initial labs showed a normal white blood cell count of 6.9, hemoglobin 11.4, proBNP 3430. Respiratory panel was negative for influenza a and B, RSV, COVID. ABG shown a pH of 7.336, pCO2 of 69.5. Last echo from 05/18/2023 was reviewed which showed normal LV systolic function with an estimated EF of 70%, moderate pulmonary hypertension. Patient was started on Lasix IV BID for diuresis and was admitted to IMU for Bipap. On examination today patient is alert and oriented x3, sitting in the chair. Patient denies any
[2023-11-05] MEDS: POTASSIUM CHLORIDE 20 MEQ ER TABLET PO (12:17)
[2023-11-05] MEDS: RIVAROXABAN 20 MG TABLET PO (16:18)
[2023-11-05] MEDS: GABAPENTIN 300 MG CAPSULE 600 MG PO (20:35)
[2023-11-05] MEDS: MIRTAZAPINE SOLTAB 15 MG TAB.DISPER PO (20:35)
[2023-11-05] MEDS: traZODone HCL 50 MG TABLET 200 MG PO (20:35)
[2023-11-06] VITALS (14 sets, daily range): BP systolic 106–124; BP diastolic 55–82; PULSE 68–98; RESP 12–18; TEMP 35.7–36; O2SAT 91–97
[2023-11-06 05:16] LABS: Basophils Percent Auto 0.7 % (0.2-1.2); Eosinophils Absolute Auto 0.2 K/mm3 (0-0.3); Eosinophils Percent Auto 3.4 % (0-4.4); Hematocrit 38.2 % (37.0-47.0); Hemoglobin 11.4 g/dL (12.0-15.0); Immature Granulocyte Absolute 0.05 K/mm3 (0.00-0.031); Immature Granulocyte Percent A 0.9 % (0-0.5); Lymphocytes Absolute Auto 0.85 K/mm3 (0.9-3.2); Lymphocytes Percent Auto 14.7 % (18.3-44.2); Mean Corpuscular HGB Conc 29.8 g/dl (32-36); Mean Corpuscular Hemoglobin 31.5 pg (26-34); Mean Corpuscular Volume 105.5 fl (80-100); Mean Platelet Volume 9.6 fl (7.4-10.4); Monocytes Absolute Auto 0.8 K/mm3 (0.1-0.6); Monocytes Percent Auto 13.1 % (2.6-8.5); Neutrophils Absolute Auto 3.9 K/mm3 (1.3-6.7); Neutrophils Percent Auto 67.2 % (45.5-73.1); Platelet Count Result 172 k/mm3 (150-375); Red Blood Count 3.62 M/mm3 (4.2-5.4); Red Cell Distribution Width 15.9 % (11.5-14.5); White Blood Count 5.8 K/mm3 (4.5-10.0)
[2023-11-06 05:38] LABS: Blood Urea Nitrogen 26 mg/dL (7-17); Calcium 8.1 mg/dL (8.4-10.2); Carbon Dioxide > 40 mmol/L (22-30); Chloride 93 mmol/L (98-107); Estimated CRCL calculation 57 ml/min; Estimated Glomerular Filt Rate > 60; Glucose 87 mg/dL (65-110); Magnesium 2.1 mg/dL (1.6-2.3); Sodium 136 mmol/L (137-145)
[2023-11-06 05:40] LABS: Anisocytosis 1+; Ovalocytes 1+; Platelet Estimate Adequate (Adequate); Schistocytes None Seen
[2023-11-06] MEDS: LEVOTHYROXINE SODIUM 150 MCG TABLET PO (06:17)
[2023-11-06] MEDS: VALSARTAN 160 MG TABLET 320 MG PO (08:39)
[2023-11-06] MEDS: clonazePAM (*CRX) 0.5 MG TABLET 1 MG PO (08:39)
[2023-11-06] MEDS: buPROPion HCL SR (12 HR) 150 MG TAB PO ×2 (08:39→16:59)
[2023-11-06] MEDS: FUROSEMIDE INJ 40 MG/4 ML VIAL IV PUSH ×2 (08:39→16:59)
[2023-11-06] MEDS: CALCIUM/VITAMIN D 500 MG/5 MCG (200 I.U.) TABLET 1000 MG PO (08:40)
[2023-11-06] MEDS: FERROUS GLUCONATE 324 MG TABLET 648 MG PO (08:40)
[2023-11-06] MEDS: OPTI-GEN TAB 2 TABLET PO (08:40)
[2023-11-06] MEDS: DULoxetine HCL 30 MG CAPSULE.DR PO (08:40)
[2023-11-06] MEDS: METOPROLOL TARTRATE 50 MG TAB PO ×2 (08:40→20:22)
[2023-11-06] MEDS: ASCORBIC ACID 500 MG TABLET PO (08:41)
[2023-11-06] MEDS: SILVER SULFADIAZINE 1% CR 50 GM JAR (*BKC) 1 APPLIC TOPICAL (08:42)
[2023-11-06] MEDS: PANTOPRAZOLE 40 MG TABLET PO ×2 (08:42→20:22)
[2023-11-06] MEDS: oxyCODONE HCL (*CRX) 5 MG TAB IR PO ×2 (08:47→15:19)
[2023-11-06] MEDS: POTASSIUM CHLORIDE 20 MEQ ER TABLET PO (10:15)
--- NOTE | 2023-11-06 12:02 | P.PNIM_ITS ---
Progress Note: A&P Assessment and Plan (1) Respiratory failure with hypoxia and hypercapnia: Qualifiers: Chronicity: acute on chronic Qualified Code(s): J96.21 - Acute and chronic respiratory failure with hypoxia; J96.22 - Acute and chronic respiratory failure with hypercapnia Code(s): J96.91 - Respiratory failure, unspecified with hypoxia; J96.92 - Respiratory failure, unspecified with hypercapnia Status: Acute Assessment and Plan: -admit to IMU under full inpatient status Continue BiPAP to be weaned off as tolerated -recheck ABGs 11/02: Dyspnea on nasal cannula, instructed patient to wear BiPap throughout the day today Recheck ABG tomorrow 11/04/23: * secondary to fluid overload and acute on chronic congestive heart failure * Continue IV Lasix for continued diuresis * Currently on 4L NC which is patient baseline * Will get chest x-ray today * Plan to move out of IMU today * Continue cardiac monitoring * Continue PT and OT 11/05/23: * CXR showing improvement * Continue PT and OT * Continue cardiac monitoring * Will continue with IV Lasix for today, possibly transition back to oral tomorr ow 11/06/23: * CXR showing significant improvement today * Continue PT and OT * Currently on her 4 L NC which is her baseline * Crackles noted in bases still * Continue IV Lasix for now (2) Acute exacerbation of congestive heart failure: Qualifiers: Heart failure type: diastolic Qualified Code(s): I50.33 - Acute on chronic diastolic (congestive) heart failure Code(s): I50.9 - Heart failure, unspecified Status: Acute Assessment and Plan: Acute on chronic, patient from labetalol with complaints of SOB 11/02: BID IV Lasix, patient instructed on need for further diuresis BiPap during the day and night today 11/04/23: * Continue with IV Lasix today * Bipap PRN during the day and at HS 11/05/23: * Continue IV lasix today, will likely transition to oral Lasix tomorrow * Continue Bipap as needed 11/06/23: * Continue IV lasix again today * CXR showing significant improvement (3) Atrial fibrillation with RVR: Code(s): I48.91 - Unspecified atrial fibrillation Status: Acute Assessment and Plan: -currently in AFib rate 99, last echocardiogram 05/18/2023, normal LV size mild LVH normal LV systolic function EF 70% -continue telemetry monitoring --continue home medication metoprolol 50mg b.i.d -check EGK p.r.n. for chest pain,sob 11/02: Continue anticoagulation and rate control 11/04/23: * No change to current treatment plan (4) CHARLES (obstructive sleep apnea): Code(s): G47.33 - Obstructive sleep apnea (adult) (pediatric) Status: Acute Assessment and Plan: -chronic uses CPAP at night 11/04/23: * No change to current treatment plan (5) Essential hypertension: Code(s): I10 - Essential (primary) hypertension Status: Chronic Assessment and Plan: 11/02: Chronic, BP 131/99 -continue home medications -check vital signs q.4 hours 11/04/23: * No change to current treatment plan (6) Morbid obesity with BMI of 50.0-59.9, adult: Code(s): E66.01 - Morbid (severe) obesity due to excess calories; Z68.43 - Body mass index [BMI] 50.0-59.9, adult Status: Acute Assessment and Plan: 11/02: -low-calorie diet 11/04/23: * No change to current treatment plan Time Spent With Patient Time with patient: 15 - 25 minutes Subjective
--- NOTE | 2023-11-06 12:02 | PM.IMPN ---
Progress Note: A&P Assessment and Plan (1) Respiratory failure with hypoxia and hypercapnia: Qualifiers: Chronicity: acute on chronic Qualified Code(s): J96.21 - Acute and chronic respiratory failure with hypoxia; J96.22 - Acute and chronic respiratory failure with hypercapnia Code(s): J96.91 - Respiratory failure, unspecified with hypoxia; J96.92 - Respiratory failure, unspecified with hypercapnia Status: Acute Assessment and Plan: -admit to IMU under full inpatient status Continue BiPAP to be weaned off as tolerated -recheck ABGs 11/02: Dyspnea on nasal cannula, instructed patient to wear BiPap throughout the day today Recheck ABG tomorrow 11/04/23: secondary to fluid overload and acute on chronic congestive heart failure Continue IV Lasix for continued diuresis Currently on 4L NC which is patient baseline Will get chest x-ray today Plan to move out of IMU today Continue cardiac monitoring Continue PT and OT 11/05/23: CXR showing improvement Continue PT and OT Continue cardiac monitoring Will continue with IV Lasix for today, possibly transition back to oral tomorrow 11/06/23: CXR showing significant improvement today Continue PT and OT Currently on her 4 L NC which is her baseline Crackles noted in bases still Continue IV Lasix for now (2) Acute exacerbation of congestive heart failure: Qualifiers: Heart failure type: diastolic Qualified Code(s): I50.33 - Acute on chronic diastolic (congestive) heart failure Code(s): I50.9 - Heart failure, unspecified Status: Acute Assessment and Plan: Acute on chronic, patient from labetalol with complaints of SOB 11/02: BID IV Lasix, patient instructed on need for further diuresis BiPap during the day and night today 11/04/23: Continue with IV Lasix today Bipap PRN during the day and at HS 11/05/23: Continue IV lasix today, will likely transition to oral Lasix tomorrow Continue Bipap as needed 11/06/23: Continue IV lasix again today CXR showing significant improvement (3) Atrial fibrillation with RVR: Code(s): I48.91 - Unspecified atrial fibrillation Status: Acute Assessment and Plan: -currently in AFib rate 99, last echocardiogram 05/18/2023, normal LV size mild LVH normal LV systolic function EF 70% -continue telemetry monitoring --continue home medication metoprolol 50mg b.i.d -check EGK p.r.n. for chest pain,sob 11/02: Continue anticoagulation and rate control 11/04/23: No change to current treatment plan (4) CAHRLES (obstructive sleep apnea): Code(s): G47.33 - Obstructive sleep apnea (adult) (pediatric) Status: Acute Assessment and Plan: -chronic uses CPAP at night 11/04/23: No change to current treatment plan (5) Essential hypertension: Code(s): I10 - Essential (primary) hypertension Status: Chronic Assessment and Plan: 11/02: Chronic, BP 131/99 -continue home medications -check vital signs q.4 hours 11/04/23: No change to current treatment plan (6) Morbid obesity with BMI of 50.0-59.9, adult: Code(s): E66.01 - Morbid (severe) obesity due to excess calories; Z68.43 - Body mass index [BMI] 50.0-59.9, adult Status: Acute Assessment and Plan: 11/02: -low-calorie diet 11/04/23: No change to current treatment plan Time Spent With Patient Time with patient: 15 - 25 minutes Subjective Date/time seen: 11/06/23 12:02 Interval history: 11/04/23: This is an 83-year-old female who presented to the hospital on 11/02/2023 with shortness of breath. Workup in the hospital included chest x-ray which shows congestive heart failure, pulmonary edema. Initial labs showed a normal white blood cell count of 6.9, hemoglobin 11.4, proBNP 3430. Respiratory panel was negative for influenza a and B, RSV, COVID. ABG shown a pH of 7.336, pCO2 of 69.5. Last echo from 05/18/2023 was reviewed which showed no
[2023-11-06] MEDS: FLUCONAZOLE 100 MG TABLET PO (13:58)
[2023-11-06] MEDS: RIVAROXABAN 20 MG TABLET PO (16:59)
[2023-11-06] MEDS: GABAPENTIN 300 MG CAPSULE 600 MG PO (20:22)
[2023-11-06] MEDS: MIRTAZAPINE SOLTAB 15 MG TAB.DISPER PO (20:22)
[2023-11-06] MEDS: traZODone HCL 50 MG TABLET 200 MG PO (20:22)
[2023-11-06] MEDS: TOLNAFTATE 1% POWDER 45 GM BTL 1 APPLIC TOPICAL (20:23)
[2023-11-07] VITALS (18 sets, daily range): BP systolic 100–132; BP diastolic 50–93; PULSE 69–100; RESP 13–20; TEMP 36–36.5; O2SAT 90–100
[2023-11-07] MEDS: oxyCODONE HCL (*CRX) 5 MG TAB IR PO ×2 (02:05→18:22)
[2023-11-07 05:25] LABS: Basophils Percent Auto 0.4 % (0.2-1.2); Eosinophils Absolute Auto 0.2 K/mm3 (0-0.3); Eosinophils Percent Auto 3.5 % (0-4.4); Hematocrit 37.9 % (37.0-47.0); Hemoglobin 11.3 g/dL (12.0-15.0); Immature Granulocyte Absolute 0.05 K/mm3 (0.00-0.031); Immature Granulocyte Percent A 0.7 % (0-0.5); Lymphocytes Absolute Auto 0.87 K/mm3 (0.9-3.2); Lymphocytes Percent Auto 12.6 % (18.3-44.2); Mean Corpuscular HGB Conc 29.8 g/dl (32-36); Mean Corpuscular Hemoglobin 31.3 pg (26-34); Mean Platelet Volume 9.6 fl (7.4-10.4); Monocytes Absolute Auto 0.7 K/mm3 (0.1-0.6); Monocytes Percent Auto 9.7 % (2.6-8.5); Neutrophils Percent Auto 73.1 % (45.5-73.1); Platelet Count Result 196 k/mm3 (150-375); Red Blood Count 3.61 M/mm3 (4.2-5.4); Red Cell Distribution Width 15.9 % (11.5-14.5); White Blood Count 6.9 K/mm3 (4.5-10.0)
[2023-11-07 05:42] LABS: Blood Urea Nitrogen 27 mg/dL (7-17); Calcium 8.4 mg/dL (8.4-10.2); Carbon Dioxide > 40 mmol/L (22-30); Chloride 91 mmol/L (98-107); Estimated CRCL calculation 56 ml/min; Estimated Glomerular Filt Rate > 60; Glucose 108 mg/dL (65-110); Potassium 3.8 mmol/L (3.4-5.0); Sodium 138 mmol/L (137-145)
[2023-11-07 05:53] LABS: Anisocytosis 1+; Platelet Estimate Adequate (Adequate); Stomatocytes 1+
[2023-11-07 05:54] LABS: Hypochromasia 1+; Schistocytes None Seen
[2023-11-07] MEDS: LEVOTHYROXINE SODIUM 150 MCG TABLET PO (06:10)
--- NOTE | 2023-11-07 08:48 | P.PNIM_ITS ---
Progress Note: A&P Assessment and Plan (1) Respiratory failure with hypoxia and hypercapnia: Qualifiers: Chronicity: acute on chronic Qualified Code(s): J96.21 - Acute and chronic respiratory failure with hypoxia; J96.22 - Acute and chronic respiratory failure with hypercapnia Code(s): J96.91 - Respiratory failure, unspecified with hypoxia; J96.92 - Respiratory failure, unspecified with hypercapnia Status: Acute Assessment and Plan: -admit to IMU under full inpatient status Continue BiPAP to be weaned off as tolerated -recheck ABGs 11/02: Dyspnea on nasal cannula, instructed patient to wear BiPap throughout the day today Recheck ABG tomorrow 11/04/23: * secondary to fluid overload and acute on chronic congestive heart failure * Continue IV Lasix for continued diuresis * Currently on 4L NC which is patient baseline * Will get chest x-ray today * Plan to move out of IMU today * Continue cardiac monitoring * Continue PT and OT 11/05/23: * CXR showing improvement * Continue PT and OT * Continue cardiac monitoring * Will continue with IV Lasix for today, possibly transition back to oral tomorr ow 11/06/23: * CXR showing significant improvement today * Continue PT and OT * Currently on her 4 L NC which is her baseline * Crackles noted in bases still * Continue IV Lasix for now 11/07/23: * Will change Lasix to oral today * Continue PT and OT (2) Acute exacerbation of congestive heart failure: Qualifiers: Heart failure type: diastolic Qualified Code(s): I50.33 - Acute on chronic diastolic (congestive) heart failure Code(s): I50.9 - Heart failure, unspecified Status: Acute Assessment and Plan: Acute on chronic, patient from labetalol with complaints of SOB 11/02: BID IV Lasix, patient instructed on need for further diuresis BiPap during the day and night today 11/04/23: * Continue with IV Lasix today * Bipap PRN during the day and at HS 11/05/23: * Continue IV lasix today, will likely transition to oral Lasix tomorrow * Continue Bipap as needed 11/06/23: * Continue IV lasix again today * CXR showing significant improvement 11/07/23: * Will change Lasix to po today (3) Atrial fibrillation with RVR: Code(s): I48.91 - Unspecified atrial fibrillation Status: Acute Assessment and Plan: -currently in AFib rate 99, last echocardiogram 05/18/2023, normal LV size mild LVH normal LV systolic function EF 70% -continue telemetry monitoring --continue home medication metoprolol 50mg b.i.d -check EGK p.r.n. for chest pain,sob 11/02: Continue anticoagulation and rate control 11/04/23: * No change to current treatment plan (4) CHARLES (obstructive sleep apnea): Code(s): G47.33 - Obstructive sleep apnea (adult) (pediatric) Status: Acute Assessment and Plan: -chronic uses CPAP at night 11/04/23: * No change to current treatment plan (5) Essential hypertension: Code(s): I10 - Essential (primary) hypertension Status: Chronic Assessment and Plan: 11/02: Chronic, BP 131/99 -continue home medications -check vital signs q.4 hours 11/04/23: * No change to current treatment plan (6) Morbid obesity with BMI of 50.0-59.9, adult: Code(s): E66.01 - Morbid (severe) obesity due to excess calories; Z68.43 - Body mass index [BMI] 50.0-59.9, adult Status: Acute Assessment and Plan: 11/02: -low-calorie diet
--- NOTE | 2023-11-07 08:48 | PM.IMPN ---
Progress Note: A&P Assessment and Plan (1) Respiratory failure with hypoxia and hypercapnia: Qualifiers: Chronicity: acute on chronic Qualified Code(s): J96.21 - Acute and chronic respiratory failure with hypoxia; J96.22 - Acute and chronic respiratory failure with hypercapnia Code(s): J96.91 - Respiratory failure, unspecified with hypoxia; J96.92 - Respiratory failure, unspecified with hypercapnia Status: Acute Assessment and Plan: -admit to IMU under full inpatient status Continue BiPAP to be weaned off as tolerated -recheck ABGs 11/02: Dyspnea on nasal cannula, instructed patient to wear BiPap throughout the day today Recheck ABG tomorrow 11/04/23: secondary to fluid overload and acute on chronic congestive heart failure Continue IV Lasix for continued diuresis Currently on 4L NC which is patient baseline Will get chest x-ray today Plan to move out of IMU today Continue cardiac monitoring Continue PT and OT 11/05/23: CXR showing improvement Continue PT and OT Continue cardiac monitoring Will continue with IV Lasix for today, possibly transition back to oral tomorrow 11/06/23: CXR showing significant improvement today Continue PT and OT Currently on her 4 L NC which is her baseline Crackles noted in bases still Continue IV Lasix for now 11/07/23: Will change Lasix to oral today Continue PT and OT (2) Acute exacerbation of congestive heart failure: Qualifiers: Heart failure type: diastolic Qualified Code(s): I50.33 - Acute on chronic diastolic (congestive) heart failure Code(s): I50.9 - Heart failure, unspecified Status: Acute Assessment and Plan: Acute on chronic, patient from labetalol with complaints of SOB 11/02: BID IV Lasix, patient instructed on need for further diuresis BiPap during the day and night today 11/04/23: Continue with IV Lasix today Bipap PRN during the day and at HS 11/05/23: Continue IV lasix today, will likely transition to oral Lasix tomorrow Continue Bipap as needed 11/06/23: Continue IV lasix again today CXR showing significant improvement 11/07/23: Will change Lasix to po today (3) Atrial fibrillation with RVR: Code(s): I48.91 - Unspecified atrial fibrillation Status: Acute Assessment and Plan: -currently in AFib rate 99, last echocardiogram 05/18/2023, normal LV size mild LVH normal LV systolic function EF 70% -continue telemetry monitoring --continue home medication metoprolol 50mg b.i.d -check EGK p.r.n. for chest pain,sob 11/02: Continue anticoagulation and rate control 11/04/23: No change to current treatment plan (4) CHARLES (obstructive sleep apnea): Code(s): G47.33 - Obstructive sleep apnea (adult) (pediatric) Status: Acute Assessment and Plan: -chronic uses CPAP at night 11/04/23: No change to current treatment plan (5) Essential hypertension: Code(s): I10 - Essential (primary) hypertension Status: Chronic Assessment and Plan: 11/02: Chronic, BP 131/99 -continue home medications -check vital signs q.4 hours 11/04/23: No change to current treatment plan (6) Morbid obesity with BMI of 50.0-59.9, adult: Code(s): E66.01 - Morbid (severe) obesity due to excess calories; Z68.43 - Body mass index [BMI] 50.0-59.9, adult Status: Acute Assessment and Plan: 11/02: -low-calorie diet 11/04/23: No change to current treatment plan Time Spent With Patient Time with patient: 25 - 35 minutes Subjective Date/time seen: 11/07/23 08:48 Interval history: 11/04/23: This is an 83-year-old female who presented to the hospital on 11/02/2023 with shortness of breath. Workup in the hospital included chest x-ray which shows congestive heart failure, pulmonary edema. Initial labs showed a normal white blood cell count of 6.9, hemoglobin 11.4, proBNP 3430. Respiratory panel was negative for influenza a a
[2023-11-07] MEDS: OPTI-GEN TAB 2 TABLET PO (09:44)
[2023-11-07] MEDS: clonazePAM (*CRX) 0.5 MG TABLET 1 MG PO (09:44)
[2023-11-07] MEDS: buPROPion HCL SR (12 HR) 150 MG TAB PO ×2 (09:45→18:24)
[2023-11-07] MEDS: VALSARTAN 160 MG TABLET 320 MG PO (09:45)
[2023-11-07] MEDS: CALCIUM/VITAMIN D 500 MG/5 MCG (200 I.U.) TABLET 1000 MG PO (09:45)
[2023-11-07] MEDS: FLUCONAZOLE 100 MG TABLET PO (09:45)
[2023-11-07] MEDS: DULoxetine HCL 30 MG CAPSULE.DR PO (09:46)
[2023-11-07] MEDS: SILVER SULFADIAZINE 1% CR 50 GM JAR (*BKC) 1 APPLIC TOPICAL (09:46)
[2023-11-07] MEDS: TOLNAFTATE 1% POWDER 45 GM BTL 1 APPLIC TOPICAL ×2 (09:46→21:09)
[2023-11-07] MEDS: PANTOPRAZOLE 40 MG TABLET PO ×2 (09:46→21:08)
[2023-11-07] MEDS: FERROUS GLUCONATE 324 MG TABLET 648 MG PO (09:46)
[2023-11-07] MEDS: FUROSEMIDE INJ 40 MG/4 ML VIAL IV PUSH (09:46)
[2023-11-07] MEDS: ASCORBIC ACID 500 MG TABLET PO (09:46)
[2023-11-07] MEDS: METOPROLOL TARTRATE 50 MG TAB PO ×2 (09:46→21:08)
[2023-11-07] MEDS: polyethylene glycoL 3350 17 GM POWD.PACK PO (12:21)
[2023-11-07] MEDS: FUROSEMIDE 40 MG TABLET PO (18:23)
[2023-11-07] MEDS: RIVAROXABAN 20 MG TABLET PO (18:23)
[2023-11-07] MEDS: traZODone HCL 50 MG TABLET 200 MG PO (21:08)
[2023-11-07] MEDS: GABAPENTIN 300 MG CAPSULE 600 MG PO (21:08)
[2023-11-07] MEDS: MIRTAZAPINE SOLTAB 15 MG TAB.DISPER PO (21:08)
[2023-11-08] VITALS (14 sets, daily range): BP systolic 108–146; BP diastolic 54–90; PULSE 72–93; RESP 16–20; TEMP 35.7–36.7; O2SAT 95–100
[2023-11-08] MEDS: LEVOTHYROXINE SODIUM 150 MCG TABLET PO (05:51)
[2023-11-08 06:05] LABS: Basophils Percent Auto 0.6 % (0.2-1.2); Eosinophils Absolute Auto 0.3 K/mm3 (0-0.3); Eosinophils Percent Auto 3.8 % (0-4.4); Hematocrit 42.1 % (37.0-47.0); Hemoglobin 12.5 g/dL (12.0-15.0); Immature Granulocyte Absolute 0.07 K/mm3 (0.00-0.031); Lymphocytes Absolute Auto 0.98 K/mm3 (0.9-3.2); Lymphocytes Percent Auto 14.2 % (18.3-44.2); Mean Corpuscular HGB Conc 29.7 g/dl (32-36); Mean Corpuscular Hemoglobin 31.7 pg (26-34); Mean Corpuscular Volume 106.9 fl (80-100); Mean Platelet Volume 9.7 fl (7.4-10.4); Monocytes Absolute Auto 0.9 K/mm3 (0.1-0.6); Neutrophils Absolute Auto 4.7 K/mm3 (1.3-6.7); Neutrophils Percent Auto 67.4 % (45.5-73.1); Platelet Count Result 182 k/mm3 (150-375); Red Blood Count 3.94 M/mm3 (4.2-5.4); Red Cell Distribution Width 15.7 % (11.5-14.5); White Blood Count 6.9 K/mm3 (4.5-10.0)
[2023-11-08 06:32] LABS: Blood Urea Nitrogen 26 mg/dL (7-17); Calcium 8.4 mg/dL (8.4-10.2); Carbon Dioxide > 40 mmol/L (22-30); Chloride 92 mmol/L (98-107); Estimated CRCL calculation 64 ml/min; Estimated Glomerular Filt Rate > 60; Glucose 84 mg/dL (65-110); Magnesium 2.2 mg/dL (1.6-2.3); Potassium 4.4 mmol/L (3.4-5.0); Sodium 137 mmol/L (137-145)
[2023-11-08 07:19] LABS: Platelet Estimate Adequate (Adequate); Schistocytes None Seen
[2023-11-08 07:20] LABS: Macrocytosis 1+ (NORMAL)
[2023-11-08 07:21] LABS: Hypochromasia 1+
[2023-11-08] MEDS: polyethylene glycoL 3350 17 GM POWD.PACK PO (09:13)
[2023-11-08] MEDS: clonazePAM (*CRX) 0.5 MG TABLET 1 MG PO (09:13)
[2023-11-08] MEDS: FUROSEMIDE 40 MG TABLET PO ×2 (09:13→16:39)
[2023-11-08] MEDS: OPTI-GEN TAB 2 TABLET PO (09:13)
[2023-11-08] MEDS: FERROUS GLUCONATE 324 MG TABLET 648 MG PO (09:13)
[2023-11-08] MEDS: ASCORBIC ACID 500 MG TABLET PO (09:13)
[2023-11-08] MEDS: VALSARTAN 160 MG TABLET 320 MG PO (09:14)
[2023-11-08] MEDS: METOPROLOL TARTRATE 50 MG TAB PO ×2 (09:14→20:35)
[2023-11-08] MEDS: DULoxetine HCL 30 MG CAPSULE.DR PO (09:14)
[2023-11-08] MEDS: FLUCONAZOLE 100 MG TABLET PO (09:14)
[2023-11-08] MEDS: PANTOPRAZOLE 40 MG TABLET PO ×2 (09:14→20:35)
[2023-11-08] MEDS: TOLNAFTATE 1% POWDER 45 GM BTL 1 APPLIC TOPICAL ×2 (09:15→21:09)
[2023-11-08] MEDS: CALCIUM/VITAMIN D 500 MG/5 MCG (200 I.U.) TABLET 1000 MG PO (09:15)
[2023-11-08] MEDS: SILVER SULFADIAZINE 1% CR 50 GM JAR (*BKC) 1 APPLIC TOPICAL (09:16)
[2023-11-08] MEDS: buPROPion HCL SR (12 HR) 150 MG TAB PO ×2 (09:16→16:39)
[2023-11-08] MEDS: oxyCODONE HCL (*CRX) 5 MG TAB IR PO ×2 (09:24→20:35)
--- NOTE | 2023-11-08 16:12 | P.PNIM_ITS ---
Progress Note: A&P Assessment and Plan (1) Respiratory failure with hypoxia and hypercapnia: Qualifiers: Chronicity: acute on chronic Qualified Code(s): J96.21 - Acute and chronic respiratory failure with hypoxia; J96.22 - Acute and chronic respiratory failure with hypercapnia Code(s): J96.91 - Respiratory failure, unspecified with hypoxia; J96.92 - Respiratory failure, unspecified with hypercapnia Status: Acute Assessment and Plan: -admit to IMU under full inpatient status Continue BiPAP to be weaned off as tolerated -recheck ABGs 11/02: Dyspnea on nasal cannula, instructed patient to wear BiPap throughout the day today Recheck ABG tomorrow 11/04/23: * secondary to fluid overload and acute on chronic congestive heart failure * Continue IV Lasix for continued diuresis * Currently on 4L NC which is patient baseline * Will get chest x-ray today * Plan to move out of IMU today * Continue cardiac monitoring * Continue PT and OT 11/05/23: * CXR showing improvement * Continue PT and OT * Continue cardiac monitoring * Will continue with IV Lasix for today, possibly transition back to oral tomorr ow 11/06/23: * CXR showing significant improvement today * Continue PT and OT * Currently on her 4 L NC which is her baseline * Crackles noted in bases still * Continue IV Lasix for now 11/07/23: * Will change Lasix to oral today * Continue PT and OT (2) Acute exacerbation of congestive heart failure: Qualifiers: Heart failure type: diastolic Qualified Code(s): I50.33 - Acute on chronic diastolic (congestive) heart failure Code(s): I50.9 - Heart failure, unspecified Status: Acute Assessment and Plan: Acute on chronic, patient from labetalol with complaints of SOB 11/02: BID IV Lasix, patient instructed on need for further diuresis BiPap during the day and night today 11/04/23: * Continue with IV Lasix today * Bipap PRN during the day and at HS 11/05/23: * Continue IV lasix today, will likely transition to oral Lasix tomorrow * Continue Bipap as needed 11/06/23: * Continue IV lasix again today * CXR showing significant improvement 11/07/23: * Will change Lasix to po today (3) Open abdominal wall wound: Code(s): S31.109A - Unspecified open wound of abdominal wall, unspecified quadrant without penetration into peritoneal cavity, initial encounter Status: Acute Assessment and Plan: 11/08/23: * Blood culture showing MRSA * Nursing reports purulence drainage draining from chronic abdominal wall wound, reports 10 ml initially * Will go ahead and get a CT of the abdomen to rule out abscess * Patient was started on doxycycline (4) Atrial fibrillation with RVR: Code(s): I48.91 - Unspecified atrial fibrillation Status: Acute Assessment and Plan: -currently in AFib rate 99, last echocardiogram 05/18/2023, normal LV size mild LVH normal LV systolic function EF 70% -continue telemetry monitoring --continue home medication metoprolol 50mg b.i.d -check EGK p.r.n. for chest pain,sob 11/02: Continue anticoagulation and rate control 11/04/23: * No change to current treatment plan (5) CHARLES (obstructive sleep apnea): Code(s): G47.33 - Obstructive sleep apnea (adult) (pediatric) Status: Acute Assessment and Plan: -chronic uses CPAP at night 11/04/23: * No change to current treatment plan (6) Essential hypertension: Code(s): I10 - Essential
--- NOTE | 2023-11-08 16:12 | PM.IMPN ---
Progress Note: A&P Assessment and Plan (1) Respiratory failure with hypoxia and hypercapnia: Qualifiers: Chronicity: acute on chronic Qualified Code(s): J96.21 - Acute and chronic respiratory failure with hypoxia; J96.22 - Acute and chronic respiratory failure with hypercapnia Code(s): J96.91 - Respiratory failure, unspecified with hypoxia; J96.92 - Respiratory failure, unspecified with hypercapnia Status: Acute Assessment and Plan: -admit to IMU under full inpatient status Continue BiPAP to be weaned off as tolerated -recheck ABGs 11/02: Dyspnea on nasal cannula, instructed patient to wear BiPap throughout the day today Recheck ABG tomorrow 11/04/23: secondary to fluid overload and acute on chronic congestive heart failure Continue IV Lasix for continued diuresis Currently on 4L NC which is patient baseline Will get chest x-ray today Plan to move out of IMU today Continue cardiac monitoring Continue PT and OT 11/05/23: CXR showing improvement Continue PT and OT Continue cardiac monitoring Will continue with IV Lasix for today, possibly transition back to oral tomorrow 11/06/23: CXR showing significant improvement today Continue PT and OT Currently on her 4 L NC which is her baseline Crackles noted in bases still Continue IV Lasix for now 11/07/23: Will change Lasix to oral today Continue PT and OT (2) Acute exacerbation of congestive heart failure: Qualifiers: Heart failure type: diastolic Qualified Code(s): I50.33 - Acute on chronic diastolic (congestive) heart failure Code(s): I50.9 - Heart failure, unspecified Status: Acute Assessment and Plan: Acute on chronic, patient from labetalol with complaints of SOB 11/02: BID IV Lasix, patient instructed on need for further diuresis BiPap during the day and night today 11/04/23: Continue with IV Lasix today Bipap PRN during the day and at HS 11/05/23: Continue IV lasix today, will likely transition to oral Lasix tomorrow Continue Bipap as needed 11/06/23: Continue IV lasix again today CXR showing significant improvement 11/07/23: Will change Lasix to po today (3) Open abdominal wall wound: Code(s): S31.109A - Unspecified open wound of abdominal wall, unspecified quadrant without penetration into peritoneal cavity, initial encounter Status: Acute Assessment and Plan: 11/08/23: Blood culture showing MRSA Nursing reports purulence drainage draining from chronic abdominal wall wound, reports 10 ml initially Will go ahead and get a CT of the abdomen to rule out abscess Patient was started on doxycycline (4) Atrial fibrillation with RVR: Code(s): I48.91 - Unspecified atrial fibrillation Status: Acute Assessment and Plan: -currently in AFib rate 99, last echocardiogram 05/18/2023, normal LV size mild LVH normal LV systolic function EF 70% -continue telemetry monitoring --continue home medication metoprolol 50mg b.i.d -check EGK p.r.n. for chest pain,sob 11/02: Continue anticoagulation and rate control 11/04/23: No change to current treatment plan (5) CHARLES (obstructive sleep apnea): Code(s): G47.33 - Obstructive sleep apnea (adult) (pediatric) Status: Acute Assessment and Plan: -chronic uses CPAP at night 11/04/23: No change to current treatment plan (6) Essential hypertension: Code(s): I10 - Essential (primary) hypertension Status: Chronic Assessment and Plan: 11/02: Chronic, BP 131/99 -continue home medications -check vital signs q.4 hours 11/04/23: No change to current treatment plan (7) Morbid obesity with BMI of 50.0-59.9, adult: Code(s): E66.01 - Morbid (severe) obesity due to excess calories; Z68.43 - Body mass index [BMI] 50.0-59.9, adult Status: Acute Assessment and Plan: 11/02: -low-calorie diet 11/04/23: No change to current treatment plan Alex
[2023-11-08] MEDS: RIVAROXABAN 20 MG TABLET PO (16:39)
[2023-11-08] MEDS: traZODone HCL 50 MG TABLET 200 MG PO (20:35)
[2023-11-08] MEDS: GABAPENTIN 300 MG CAPSULE 600 MG PO (20:35)
[2023-11-08] MEDS: DOXYCYCLINE HYCLATE 100 MG TABLET PO (20:35)
[2023-11-08] MEDS: MIRTAZAPINE SOLTAB 15 MG TAB.DISPER PO (20:36)
[2023-11-08] MEDS: MAGNESIUM CITRATE 300 ML BTL 150 ML PO (20:36)
[2023-11-09] VITALS (11 sets, daily range): BP systolic 134–149; BP diastolic 84–90; PULSE 70–96; RESP 16–20; TEMP 35.8–36.6; O2SAT 94–100
[2023-11-09] MEDS: LEVOTHYROXINE SODIUM 150 MCG TABLET PO (06:02)
[2023-11-09 06:45] LABS: Basophils Percent Auto 0.7 % (0.2-1.2); Eosinophils Absolute Auto 0.3 K/mm3 (0-0.3); Eosinophils Percent Auto 4.2 % (0-4.4); Hematocrit 40.4 % (37.0-47.0); Hemoglobin 12.3 g/dL (12.0-15.0); Immature Granulocyte Absolute 0.04 K/mm3 (0.00-0.031); Immature Granulocyte Percent A 0.7 % (0-0.5); Lymphocytes Absolute Auto 0.92 K/mm3 (0.9-3.2); Lymphocytes Percent Auto 15.4 % (18.3-44.2); Mean Corpuscular HGB Conc 30.4 g/dl (32-36); Mean Corpuscular Hemoglobin 31.9 pg (26-34); Mean Corpuscular Volume 104.7 fl (80-100); Mean Platelet Volume 10.3 fl (7.4-10.4); Monocytes Absolute Auto 0.6 K/mm3 (0.1-0.6); Monocytes Percent Auto 10.5 % (2.6-8.5); Neutrophils Absolute Auto 4.1 K/mm3 (1.3-6.7); Neutrophils Percent Auto 68.5 % (45.5-73.1); Platelet Count Result 238 k/mm3 (150-375); Red Blood Count 3.86 M/mm3 (4.2-5.4); Red Cell Distribution Width 15.6 % (11.5-14.5)
[2023-11-09 06:51] LABS: Blood Urea Nitrogen 26 mg/dL (7-17); Calcium 8.5 mg/dL (8.4-10.2); Carbon Dioxide > 40 mmol/L (22-30); Chloride 90 mmol/L (98-107); Estimated CRCL calculation 56 ml/min; Estimated Glomerular Filt Rate > 60; Glucose 82 mg/dL (65-110); Magnesium 2.3 mg/dL (1.6-2.3); Potassium 4.7 mmol/L (3.4-5.0); Sodium 137 mmol/L (137-145)
[2023-11-09] MEDS: OPTI-GEN TAB 2 TABLET PO (09:48)
[2023-11-09] MEDS: ASCORBIC ACID 500 MG TABLET PO (09:48)
[2023-11-09] MEDS: PANTOPRAZOLE 40 MG TABLET PO ×2 (09:48→20:25)
[2023-11-09] MEDS: FUROSEMIDE 40 MG TABLET PO ×2 (09:48→18:10)
[2023-11-09] MEDS: VALSARTAN 160 MG TABLET 320 MG PO (09:48)
[2023-11-09] MEDS: buPROPion HCL SR (12 HR) 150 MG TAB PO ×2 (09:48→18:10)
[2023-11-09] MEDS: DULoxetine HCL 30 MG CAPSULE.DR PO (09:48)
[2023-11-09] MEDS: oxyCODONE HCL (*CRX) 5 MG TAB IR PO (09:49)
[2023-11-09] MEDS: METOPROLOL TARTRATE 50 MG TAB PO ×2 (09:49→20:24)
[2023-11-09] MEDS: CALCIUM/VITAMIN D 500 MG/5 MCG (200 I.U.) TABLET 1000 MG PO (09:50)
[2023-11-09] MEDS: clonazePAM (*CRX) 0.5 MG TABLET 1 MG PO (09:51)
[2023-11-09] MEDS: FERROUS GLUCONATE 324 MG TABLET 648 MG PO (09:51)
[2023-11-09] MEDS: polyethylene glycoL 3350 17 GM POWD.PACK PO (09:51)
[2023-11-09] MEDS: DOXYCYCLINE HYCLATE 100 MG TABLET PO ×2 (09:51→20:24)
[2023-11-09] MEDS: TOLNAFTATE 1% POWDER 45 GM BTL 1 APPLIC TOPICAL ×2 (09:52→20:25)
[2023-11-09] MEDS: SILVER SULFADIAZINE 1% CR 50 GM JAR (*BKC) 1 APPLIC TOPICAL (09:52)
--- NOTE | 2023-11-09 15:09 | PM.DS ---
DS: Admitting Diagnosis Discharge Date 11/09/23 Admitting Diagnosis Acute Exacerbation of CHF Atrial fibrillation with RVR Respiratory failure with hypoxia and hypercapnia CHARLES Morbid obesity Essential hypertension DS: Discharge Diagnosis Discharge Diagnosis (1) Respiratory failure with hypoxia and hypercapnia: Qualifiers: Chronicity: acute on chronic Qualified Code(s): J96.21 - Acute and chronic respiratory failure with hypoxia; J96.22 - Acute and chronic respiratory failure with hypercapnia Code(s): J96.91 - Respiratory failure, unspecified with hypoxia; J96.92 - Respiratory failure, unspecified with hypercapnia Status: Acute (2) Acute exacerbation of congestive heart failure: Qualifiers: Heart failure type: diastolic Qualified Code(s): I50.33 - Acute on chronic diastolic (congestive) heart failure Code(s): I50.9 - Heart failure, unspecified Status: Acute (3) Open abdominal wall wound: Code(s): S31.109A - Unspecified open wound of abdominal wall, unspecified quadrant without penetration into peritoneal cavity, initial encounter Status: Acute (4) Atrial fibrillation with RVR: Code(s): I48.91 - Unspecified atrial fibrillation Status: Acute (5) CHARLES (obstructive sleep apnea): Code(s): G47.33 - Obstructive sleep apnea (adult) (pediatric) Status: Acute (6) Essential hypertension: Code(s): I10 - Essential (primary) hypertension Status: Chronic (7) Morbid obesity with BMI of 50.0-59.9, adult: Code(s): E66.01 - Morbid (severe) obesity due to excess calories; Z68.43 - Body mass index [BMI] 50.0-59.9, adult Status: Acute DS: Summary Hospital Course Reason for hospitalization: Acute Exacerbation of CHF Atrial fibrillation with RVR Respiratory failure with hypoxia and hypercapnia CHARLES Morbid obesity Essential hypertension Hospital Course: This is an 83-year-old female who presented to the hospital on 11/02/2023 with shortness of breath. Workup in the hospital included chest x-ray which shows congestive heart failure, pulmonary edema. Initial labs showed a normal white blood cell count of 6.9, hemoglobin 11.4, proBNP 3430. Respiratory panel was negative for influenza a and B, RSV, COVID. ABG shown a pH of 7.336, pCO2 of 69.5. Last echo from 05/18/2023 was reviewed which showed normal LV systolic function with an estimated EF of 70%, moderate pulmonary hypertension. Patient was started on Lasix IV BID for diuresis and was admitted to IMU for Bipap. On examination today patient is alert and oriented x3, sitting in the chair. Patient denies any fever, chills, vomiting, diarrhea, abdominal pain, chest pain. Patient endorses shortness of breath with activity and mildly at rest and nausea today. Labs today are unremarkable. Patient is currently on 4 L nasal cannula which is her baseline. She wears C pap at night at home, currently on bipap here. Patient is stable to move out of IMU today to Med/surg with telemetry monitoring. We will also get another chest x-ray today. Continue diuresis. During the course of her stay chest x-rays improved with diuresis and she was transition to oral Lasix 40 mg b.i.d.. Patient back to baseline oxygen requirement. Cardiology seen patient and increased her metoprolol to 75 mg which took care of her atrial fibrillation with RVR. She is currently rate controlled. She was also found to have a chronic wound to her abdominal wall from previous abdominal surgery. She was noted to have purulence drainage coming out of the wound. It was cultured which shown MRSA. She was started on doxycycline oral. We did get a CT scan her abdomen which showed a 7.0 by 4.7 cm anterior abdominal wall mass in infraumbilical abdominal wall at the midline which could be related to postsurgical scarring in phlegmonous. Spoke with General surgery team regarding chronic wound and they agree to see her on an outpatient basis considering
[2023-11-09] MEDS: RIVAROXABAN 20 MG TABLET PO (18:10)
[2023-11-09] MEDS: GABAPENTIN 300 MG CAPSULE 600 MG PO (20:24)
[2023-11-09] MEDS: traZODone HCL 50 MG TABLET 200 MG PO (20:24)
[2023-11-09] MEDS: MIRTAZAPINE SOLTAB 15 MG TAB.DISPER PO (20:25)
== END 2023-11-09 20:35 | DRG 291 ==
LOC: ANHED 11:07 → ANHIMU 11:27 → ANH3MEDSUR 11-04 14:10
PROVIDERS: Nurse Practitioner; Admitting Provider Internal Medicine; Emergency Provider Emergency Medicine; Visit Provider Nurse Practitioner Acute Care
DX: I11.0 Hypertensive heart disease with heart failure (principal); I50.33 Acute on chronic diastolic (congestive) heart failure; J96.21 Acute and chronic respiratory failure with hypoxia; J96.22 Acute and chronic respiratory failure with hypercapnia; I48.19 Other persistent atrial fibrillation; Z68.43 Body mass index [BMI] 50.0-59.9, adult; L02.211 Cutaneous abscess of abdominal wall; K21.9 Gastro-esophageal reflux disease without esophagitis; E78.5 Hyperlipidemia, unspecified; E66.01 Morbid (severe) obesity due to excess calories; N32.81 Overactive bladder; E89.0 Postprocedural hypothyroidism; T81.41XS Infection following a procedure, superficial incisional surgical site, sequela; B95.62 Methicillin resistant Staphylococcus aureus infection as the cause of diseases classified elsewhere; G25.81 Restless legs syndrome; G47.33 Obstructive sleep apnea (adult) (pediatric); G89.4 Chronic pain syndrome; H35.30 Unspecified macular degeneration; F32.A Depression, unspecified; F41.9 Anxiety disorder, unspecified; Z20.822 Contact with and (suspected) exposure to COVID-19; Z96.653 Presence of artificial knee joint, bilateral; Z99.81 Dependence on supplemental oxygen; Z79.01 Long term (current) use of anticoagulants; Z85.850 Personal history of malignant neoplasm of thyroid
CPT/HCPCS: 36415; 36600; 71045; 74177; 80048; 80053; 82375; 82805; 83050; 83735; 83880; 85025; 87070; 87181; 87205; 87637; 93005; 94002; 94003; 94640; 96374; 97110; 97161; 97530; 99285; A9270; G0378; J1940; J2405; Q9967

== ENCOUNTER 2023-12-25 00:26 | Inpatient (IN) | payer MEDICARE, SELFPAY ==
[2023-12-25] VITALS (32 sets, daily range): BP systolic 97–167; BP diastolic 60–98; PULSE 63–102; RESP 14–24; TEMP 36.2–36.9; O2SAT 94–100
--- NOTE | ~2023-12-25 | XR_ITS ---
EXAMINATION: XR chest 1V portable DATE: 12/27/2023 06:01 INDICATION: Hypoxia. TECHNIQUE: A single frontal view of the chest was obtained. COMPARISON: Chest single view 12/25/2023 FINDINGS: The patient is rotated to her left. There are airspace opacities in the perihilar regions a nd lower lung zones. There is a small left pleural effusion. No pneumothorax. Cardiomegaly is noted. There are surgical clips in the neck. IMPRESSION: 1. Airspace opacities in the perihilar regions and lower lung zones with worsening on the right and m ild improvement on the left, consistent with atelectasis versus pneumonia. 2. Small left pleural effusion. 3. Cardiomegaly. Reviewed, dictated and finalized at location A. IMPRESSION: 1. Airspace opacities in the perihilar regions and lower lung zones with worsen ing on the right and mild improvement on the left, consistent with atelectasis versus pneumonia. 2. Small left pleural effusion. 3. Cardiomegaly.
--- NOTE | ~2023-12-25 | XR_ITS ---
EXAMINATION: XR chest 1V portable DATE: 12/25/2023 00:49 INDICATION: Shortness of breath. TECHNIQUE: A single frontal view of the chest was obtained on 2 radiographs. COMPARISON: Chest single view 11/06/2023, chest CT 02/18/2023 FINDINGS: The patient is rotated to her left. There is a diffuse interstitial pattern in the lungs. T here are airspace opacities in the lower lung zones. There are small pleural effusions. No pneumothor ax. Cardiomegaly is noted. There are surgical clips in the neck. There are changes of posterior fusio n procedure in lumbar spine. IMPRESSION: 1. Diffuse lung disease, likely mild pulmonary edema and basilar atelectasis versus pneumonia. 2. Small pleural effusions. 3. Cardiomegaly. Reviewed, dictated and finalized at location A. IMPRESSION: 1. Diffuse lung disease, likely mild pulmonary edema and basilar atelectasis ve rsus pneumonia. 2. Small pleural effusions. 3. Cardiomegaly.
--- NOTE | 2023-12-25 00:32 | ECG_ITS ---
Test Date: 2023-12-25 00:32:30 Measurements Intervals [place] Rate: 102 P: 0 CT: 0 QRS: 78 QRSD: 85 T: -10 QT: 363 QTc: 475 Interpretive Statements ATRIAL FIBRILLATION NONSPECIFIC T-WAVE ABNORMALITY Compared to ECG 11/03/2023 07:50:14 NO SIGNIFICANT CHANGES Electronically Signed On 12-25-2023 10:46:17 CDT by Marion Lala M.D.
--- NOTE | 2023-12-25 00:49 | ED.SOB ---
HPI - SOB/Dyspnea General Chief Complaint: Shortness of Breath/Dyspnea Stated Complaint: dyspnea Time Seen by Provider: 12/25/23 00:47 History of Present Illness HPI Narrative: This is an 83-year-old female presenting as a medical resuscitation secondary to severe respiratory distress. Patient presents from her longterm facility where she had sudden onset difficulty in breathing, low PO2 and lethargy. Patient was started on BiPAP via EMS. She was initially in the 70% on room air, not properly answering questions. On CPAP she was improving into the mid 90s and was much more awake and answering questions, responding to voice and painful stimuli. She was brought back into the emergency department for medical resuscitation at this time. IV was established in the left EG by EMS, Solu-Medrol, magnesium, nebs were given in route. Patient presently is awake alert x2, intermittently somnolent but able to wake up with sternal rub, answers questions very intermittently but follows commands. Collateral formation is difficult to obtain however review of the EMR notes that she has a history of CHF, COPD and atrial fibrillation on Xarelto. No reported falls or trauma. Related Data Home Medications Medication Instructions Recorded Confirmed bupropion HCl 150 mg tablet,12 hr 150 mg PO Q12H 02/16/20 12/25/23 sustained-release clonazepam 1 mg tablet 1 mg PO DAILY 02/16/20 12/25/23 mirtazapine 15 mg disintegrating 15 mg PO HS 02/16/20 12/25/23 tablet rivaroxaban 20 mg tablet (Xarelto) 20 mg PO DAILY 02/16/20 12/25/23 vit C 250 mg-vit E 90 mg-zinc 40 2 tablet PO DAILY 02/16/20 12/25/23 mg-copper 1 [id number] capsule (PreserVision AREDS-2) calcium carbonate 600 mg-vitamin 2 cap PO DAILY 10/15/20 12/25/23 D3 12.5 mcg (500 unit) capsule famotidine 40 mg tablet 40 mg PO BID 10/15/20 12/25/23 mirabegron 25 mg tablet,extended 25 mg PO DAILY 10/15/20 12/25/23 release 24 hr (Myrbetriq) ascorbic acid (vitamin C) 500 mg 500 mg PO DAILY 01/06/23 12/25/23 tablet ferrous gluconate 324 mg (38 mg 648 mg PO DAILY 01/06/23 12/25/23 iron) tablet levothyroxine 150 mcg capsule 150 mcg PO QAM 01/06/23 12/25/23 oxycodone 5 mg tablet 5 mg PO Q6H PRN Pain 02/17/23 12/25/23 trazodone 100 mg tablet 200 mg PO HS Insomnia 02/21/23 12/25/23 duloxetine 30 mg capsule,delayed 30 mg PO DAILY ##0 05/18/23 12/25/23 release sprinkle omeprazole 40 mg capsule,delayed 40 mg PO DAILY 05/18/23 12/25/23 release potassium chloride 20 mEq oral 20 meq PO DAILY 05/18/23 12/25/23 packet (Klor-Con) valsartan 320 mg tablet 320 mg PO DAILY 05/18/23 12/25/23 hydrocortisone-pramoxine 2.5 %-1 % 1 applic RECTAL Q6H PRN Hemorrhoids 11/02/23 12/25/23 rectal cream (Analpram-HC) hypromellose 2.5 % eye drops 1 drp EACH EYE TID PRN Dry Eye(S) 11/02/23 12/25/23 silver sulfadiazine 1 % topical 1 applic topical DAILY 11/02/23 12/25/23 cream (Silvadene) simethicone 80 mg chewable tablet 80 mg PO Q6H PRN Indigestion 11/02/23 12/25/23 bisacodyl 10 mg rectal suppository 10 mg RECTAL DAILY PRN Constipation 12/25/23 12/25/23 gabapentin 600 mg tablet 600 mg PO TID 12/25/23 12/25/23 magnesium citrate (Citroma oral 300 ml PO DAILY PRN Constipation 12/25/23 12/25/23 solution) magnesium hydroxide 400 mg/5 mL 2,400 mg PO HS PRN Constipation 12/25/23 12/25/23 oral suspension (Milk of Magnesia) sodium phosphates 19 gram-7 118 ml RECTAL ONCE 12/25/23 12/25/23 gram/118 mL enema (Fleet Enema) Allergies Allergy/AdvReac Type Severity Reaction Status Date / Time Methotrexate Analogues Allergy Unknown mouth sores Verified 02/17/23 13:43 Sulfa (Sulfonamide Allergy Unknown unknown Verified 10/08/23 13:43 Antibiotics) Review of Systems Review of Systems: As reviewed above in the HPI, difficult to assess secondary to patient's level of mental status at this time PMFSH Past Medical History Medical History
[2023-12-25] MEDS: IPRATROPIUM BR 0.02% INH SOLN 0.5 MG/2.5 ML VIAL INHALATION ×3 (00:55→01:26)
[2023-12-25] MEDS: ALBUTEROL SULFATE NEB 2.5 MG/3 ML INH 5 MG INHALATION ×3 (00:55→01:26)
[2023-12-25 01:01] LABS: Basophils Percent Auto 0.2 % (0.2-1.2); Eosinophils Absolute Auto 0.1 K/mm3 (0-0.3); Eosinophils Percent Auto 1.3 % (0-4.4); Hematocrit 39.3 % (37.0-47.0); Hemoglobin 11.9 g/dL (12.0-15.0); Immature Granulocyte Absolute 0.05 K/mm3 (0.00-0.031); Immature Granulocyte Percent A 0.5 % (0-0.5); Lymphocytes Percent Auto 5.4 % (18.3-44.2); Mean Corpuscular HGB Conc 30.3 g/dl (32-36); Mean Corpuscular Hemoglobin 31.9 pg (26-34); Mean Corpuscular Volume 105.4 fl (80-100); Monocytes Absolute Auto 0.6 K/mm3 (0.1-0.6); Monocytes Percent Auto 6.6 % (2.6-8.5); Neutrophils Absolute Auto 7.9 K/mm3 (1.3-6.7); Platelet Count Result 184 k/mm3 (150-375); Red Blood Count 3.73 M/mm3 (4.2-5.4); Red Cell Distribution Width 15.6 % (11.5-14.5); White Blood Count 9.2 K/mm3 (4.5-10.0)
[2023-12-25 01:05] LABS: Prothrombin Time 22.9 Seconds (11.1-14.7)
[2023-12-25 01:12] LABS: Lactic Acid Reflex 1.2 mmol/L (0.7-2.0)
[2023-12-25 01:12] LABS: Alveolar/Arterial O2 Gradient 427.7 mmHg; Base Excess ABG 12.3 mEq/l (+/-2.0); Fractional Inspired Oxygen 100 %; HCO3 ABG 41.2 mEq/l (22.0-26.0); Oxygen Content ABG 17.5 %vol (16.0-22.0); Oxygen Saturation ABG 99.3 % (95.0-100.0); Oxyhemoglobin 97.9 % THb (90.0-100.0); PO2 ABG 207.3 mmHg (80.0-100.0); PO2 FiO2 Ratio Arterial Blood 2.07 %; Total Hemoglobin 12.4 g/dL (12.0-18.0); pH ABG 7.341 (7.350-7.450)
[2023-12-25 01:13] LABS: Device NON-INVASIVE VENT; Modified Allen's Test Pass; Site Drawn LEFT RADIAL
[2023-12-25 01:14] LABS: Non-Invasive Expiratory Pressure 8 CMH2O; Non-Invasive Inspiratory Pressure 16 CMH2O; Non-Invasive Vent Rate 14 /MIN
[2023-12-25 01:17] LABS: Troponin I < 0.012 ng/mL (0.000-0.034)
[2023-12-25 01:22] LABS: Ovalocytes 1+; Platelet Estimate Adequate (Adequate); Schistocytes None Seen
[2023-12-25 01:31] LABS: Alanine Aminotransferase 13 U/L (6-35); Albumin Level 3.6 g/dL (3.5-5.1); Alkaline Phosphatase 113 U/L (38-126); Aspartate Amino Transferase 25 U/L (14-36); Bilirubin,Total 0.4 mg/dL (0.2-1.3); Blood Urea Nitrogen 30 mg/dL (7-17); Calcium 8.9 mg/dL (8.4-10.2); Carbon Dioxide > 40 mmol/L (22-30); Chloride 93 mmol/L (98-107); Estimated CRCL calculation 59 ml/min; Estimated Glomerular Filt Rate 60; Glucose 158 mg/dL (65-110); Magnesium 2.4 mg/dL (1.6-2.3); Sodium 140 mmol/L (137-145)
[2023-12-25 03:32] LABS: Alveolar/Arterial O2 Gradient 276.9 mmHg; Fractional Inspired Oxygen 60 %; HCO3 ABG 38.5 mEq/l (22.0-26.0); Oxygen Content ABG 17.1 %vol (16.0-22.0); Oxygen Saturation ABG 93.1 % (95.0-100.0); Oxyhemoglobin 90.8 % THb (90.0-100.0); PCO2 ABG 71.6 mmHg (35.0-45.0); PO2 ABG 72.1 mmHg (80.0-100.0); Site Drawn LEFT BRACHIAL; Total Hemoglobin 13.4 g/dL (12.0-18.0); pH ABG 7.348 (7.350-7.450)
[2023-12-25 03:33] LABS: Device NON-INVASIVE VENT; Non-Invasive Expiratory Pressure 8 CMH2O; Non-Invasive Inspiratory Pressure 16 CMH2O; Non-Invasive Vent Rate 14 /MIN
--- NOTE | 2023-12-25 03:50 | PM.IMHP ---
H&P: HPI History of Present Illness Date/Time: 12/25/23 03:50 Chief Complaint: Shortness of breath Narrative: This is an 83-year-old female with past medical history significant for chronic respiratory failure with hypoxia and hypercapnia, morbid obesity, chronic abdominal wound, peripheral vascular disease, atrial fibrillation, restless leg syndrome. [facility] Brought to the emergency room via EMS due to shortness of breath oxygen saturation 70% placed on BiPAP on route to the emergency room. At the time of my visit patient was on BiPAP unable to provide a history which has been collected from who is at bedside. Preliminary workup was significant for ABG which showed a pCO2 of 78 Review of Systems Review of Systems: ROS unobtainable: Yes unobtainable due to medical condition (On BiPAP) [facility] Past Medical History Medical History Anemia Anxiety Chronic anticoagulation Chronic diastolic congestive heart failure Echocardiogram in October 2018 demonstrated hyperdynamic left ventricular function with an ejection fraction of 71%, moderate left atrial enlargement, and grade 2 diastolic dysfunction. Chronic pain syndrome Chronic wound infection of abdomen On long-term doxycycline b.i.d. Current use of mcc anticoagulation On Xarelto for stroke prophylaxis given paroxysmal atrial fibrillation. Depression Essential hypertension Gastroesophageal reflux disease Hyperlipidemia Macular degeneration Morbid obesity Obstructive sleep apnea on CPAP Overactive bladder Persistent atrial fibrillation Pneumonia due to COVID-19 virus (03/2020) Postsurgical hypothyroidism Restless leg syndrome Shingles Thyroid cancer Status post thyroidectomy. Surgical History Surgical History History of appendectomy (2003) Complicated postoperative course with chronic midline abdominal wound. History of bilateral cataract extraction History of hernia repair History of orthopedic surgery ORIF right lower extremity fracture. History of ovarian cystectomy History of spinal surgery History of thyroidectomy History of total abdominal hysterectomy History of total bilateral knee replacement Family History Family History Mother Alzheimer's dementia Hypertension Father Acute myocardial infarction Sibling Hypertension Son Heart attack Social History Social History Social History: Surrogate decision maker: Prince Rogel, . Code status: Full code. Smoking status: Never smoker Second hand tobacco smoke exposure: No Alcohol intake: never Substance use: never Substance use type: does not use Do You Feel Safe in your Home?: Yes Lack of Transportation: No Lack of Food: Never True Current Housing: I Have Housing Concerned About Future Housing: No Difficulty Paying Gas/Electric Bills: No Difficulty Paying for Meds: No Currently Unemployed: No Education: Decline to Answer Difficulty w/ Childcare or Family Care: No Additional living arrangements comments: Lives in [place] with her . They have 3 children. Ambulates with a walker. Occupation/Education: retired Spiritual care concerns: No Meds Home Medications and Allergies Home Medications Medication Instructions Recorded Confirmed Type bupropion HCl 150 mg tablet,12 hr 150 mg PO BID 02/16/20 11/02/23 History sustained-release clonazepam 1 mg tablet 1 mg PO DAILY 02/16/20 11/02/23 History gabapentin 100 mg capsule 100 mg PO Q12H PRN Pain 02/16/20 11/02/23 History mirtazapine 15 mg disintegrating 15 mg PO HS 02/16/20 11/02/23 History tablet rivaroxaban 20 mg tablet (Xarelto) 20 mg PO DAILY 02/16/20 11/02/23 History vit C 250 mg-vit E 90 mg-zinc 40
--- NOTE | 2023-12-25 05:29 | ADMGEN ---
This patient, Michelle Rogel, was admitted to IMU Room 202-01 at 0528. Patient/family oriented to hospital policies and general routines including ID bracelet, bed and alarms, visiting hours, pain management, procedures, bathroom and other care routines, personal items, smoking policy, room service/diet, and visiting hours. Information on how to activate the Rapid Response Team has been discussed. Patient/Family are encouraged to report perceived risks to care and to ask questions if they do not understand what they are told or what they should do.
--- NOTE | 2023-12-25 14:09 | PM.IMPN ---
Progress Note: A&P Assessment and Plan (1) Respiratory failure with hypoxia and hypercapnia: Qualifiers: Chronicity: acute on chronic Qualified Code(s): J96.21 - Acute and chronic respiratory failure with hypoxia; J96.22 - Acute and chronic respiratory failure with hypercapnia Code(s): J96.91 - Respiratory failure, unspecified with hypoxia; J96.92 - Respiratory failure, unspecified with hypercapnia Status: Acute Assessment and Plan: Patient presents with SOB. ABG showing 7.34/78/207 on bipap. Repeat 7.35/72/72 on bipap CXR showing diffuse lung disease c/w edema and atelectasis; can not exclude PNA WBC normal. No fevers. Had trouble weaning off BiPAP today Lasix once given. Duonebs were not continued so will order. Repeat ABG in the morning. Consider adding steroids. (2) Acute on chronic diastolic CHF (congestive heart failure): Code(s): I50.33 - Acute on chronic diastolic (congestive) heart failure Status: Acute Assessment and Plan: Patient presents with shortness of breath. CXR showing diffuse lung disease. BNP not checked Echo May 2023 showing EF 70%, mild LVH, indeterminate diastolic fxn, mild valvular disease and moderate pHTN. No IV Lasix on admission Lasix IV once. Monitor UOP, BP, renal function and electrolytes (3) Persistent atrial fibrillation: Code(s): I48.19 - Other persistent atrial fibrillation Status: Acute Assessment and Plan: Patient with known AFib. Rate okay. Will resume Xarelto Metoprolol resumed but BP soft after lasix Put parameters on metoprolol (4) Obstructive sleep apnea on CPAP: Code(s): G47.33 - Obstructive sleep apnea (adult) (pediatric); Z99.89 - Dependence on other enabling machines and devices Status: Chronic Assessment and Plan: Currently on BiPAP. Wean off as toelrated (5) Chronic wound infection of abdomen: Qualifiers: Encounter type: subsequent encounter Qualified Code(s): S31.109D - Unspecified open wound of abdominal wall, unspecified quadrant without penetration into peritoneal cavity, subsequent encounter; L08.9 - Local infection of the skin and subcutaneous tissue, unspecified Code(s): S31.109A - Unspecified open wound of abdominal wall, unspecified quadrant without penetration into peritoneal cavity, initial encounter; L08.9 - Local infection of the skin and subcutaneous tissue, unspecified Status: Acute Assessment and Plan: Drerssing changes. Routine wound care (6) Morbid obesity with BMI of 50.0-59.9, adult: Code(s): E66.01 - Morbid (severe) obesity due to excess calories; Z68.43 - Body mass index [BMI] 50.0-59.9, adult Status: Acute Assessment and Plan: Lifestyle and diet modifications Plan DVT prophylaxis - Xarelto Code status - full Subjective Date/time seen: 12/25/23 14:09 Interval history: 82yo female with AFib, HTN, chronic respiratory failure on 4 L, CHARLES and chronic dCHF here for shortness of breath and hypoxic.?? Assuming care. Chart reviewed. Feels better. She has bipap in place and difficult to understand. She denied chest pain. Review of Systems Review of Systems: ROS unobtainable: Yes unobtainable due to mental status Exam Narrative: AF 97.2 145/85 81 23 98% bipap Gen - NARD, appears comfortable with bipap in place Chest - coarse BS anteriorly. CV - irregular. Tele showing AFib with controlled rate Abd - Soft, obese, NT. Mid-abdominal dressing clean and dry Ext - No pedal edema Psych - Nml mood and affect Skin - Warm and dry Objective Data Vital Signs Vital Signs: Vital Signs - 24 hr 12/25/23 00:35 12/25/23 00:57 12/25/23 00:57 Temperature 98.4 F Pulse Rate 98 Respiratory Rate 19 20 Blood Pressure 124/80 134/61 Pulse Oximetry 99 98 96 Oxygen Delivery BiPAP BiPAP Fraction of Inspired Oxygen 12/25/23 00:55 12/25/23 00:30 12/25/23 01:31 Temperature
[2023-12-25] MEDS: GABAPENTIN 300 MG CAPSULE 600 MG PO (16:28)
[2023-12-25] MEDS: PANTOPRAZOLE 40 MG TABLET PO (16:28)
[2023-12-25] MEDS: FUROSEMIDE INJ 40 MG/4 ML VIAL IV PUSH (16:28)
[2023-12-25] MEDS: FAMOTIDINE 20 MG TABLET 40 MG PO (16:29)
[2023-12-25] MEDS: RIVAROXABAN 20 MG TABLET PO (16:29)
[2023-12-25] MEDS: IPRATROPIUM 0.5 MG/ALBUTEROL SULFATE 2.5 MG AMPUL.NEB 3 ML INHALATION (20:15)
[2023-12-25] MEDS: traZODone HCL 50 MG TABLET 200 MG PO (20:44)
[2023-12-25] MEDS: buPROPion HCL SR (12 HR) 150 MG TAB PO (20:44)
[2023-12-25] MEDS: MIRTAZAPINE SOLTAB 15 MG TAB.DISPER PO (20:44)
[2023-12-25] MEDS: METOPROLOL TARTRATE 50 MG TAB PO (20:44)
[2023-12-25] MEDS: TOLNAFTATE 1% POWDER 45 GM BTL 1 APPLIC TOPICAL (20:44)
[2023-12-26] VITALS (28 sets, daily range): BP systolic 124–145; BP diastolic 72–97; PULSE 67–86; RESP 20–24; TEMP 36.4–36.6; O2SAT 95–100
[2023-12-26] MEDS: IPRATROPIUM 0.5 MG/ALBUTEROL SULFATE 2.5 MG AMPUL.NEB 3 ML INHALATION ×4 (02:02→20:33)
[2023-12-26 04:45] LABS: Basophils Percent Auto 0.3 % (0.2-1.2); Eosinophils Absolute Auto 0.1 K/mm3 (0-0.3); Eosinophils Percent Auto 1.1 % (0-4.4); Hematocrit 44.2 % (37.0-47.0); Hemoglobin 13.4 g/dL (12.0-15.0); Immature Granulocyte Absolute 0.02 K/mm3 (0.00-0.031); Immature Granulocyte Percent A 0.3 % (0-0.5); Lymphocytes Absolute Auto 1.03 K/mm3 (0.9-3.2); Lymphocytes Percent Auto 15.5 % (18.3-44.2); Mean Corpuscular HGB Conc 30.3 g/dl (32-36); Mean Corpuscular Hemoglobin 31.9 pg (26-34); Mean Corpuscular Volume 105.2 fl (80-100); Mean Platelet Volume 9.7 fl (7.4-10.4); Monocytes Absolute Auto 0.6 K/mm3 (0.1-0.6); Monocytes Percent Auto 9.5 % (2.6-8.5); Neutrophils Absolute Auto 4.9 K/mm3 (1.3-6.7); Neutrophils Percent Auto 73.3 % (45.5-73.1); Platelet Count Result 158 k/mm3 (150-375); Red Cell Distribution Width 15.8 % (11.5-14.5); White Blood Count 6.6 K/mm3 (4.5-10.0)
[2023-12-26 05:07] LABS: Albumin Level 3.9 g/dL (3.5-5.1); Blood Urea Nitrogen 28 mg/dL (7-17); Calcium 8.7 mg/dL (8.4-10.2); Carbon Dioxide > 40 mmol/L (22-30); Chloride 89 mmol/L (98-107); Estimated CRCL calculation 64 ml/min; Estimated Glomerular Filt Rate > 60; Glucose 85 mg/dL (65-110); Magnesium 2.2 mg/dL (1.6-2.3); Potassium 3.4 mmol/L (3.4-5.0); Sodium 141 mmol/L (137-145)
[2023-12-26 05:12] LABS: Anisocytosis 1+; Macrocytosis 1+ (NORMAL); Platelet Estimate Adequate (Adequate)
[2023-12-26 05:13] LABS: Schistocytes None Seen
[2023-12-26 05:25] LABS: Alveolar/Arterial O2 Gradient 128.8 mmHg; Base Excess ABG 19.1 mEq/l (+/-2.0); Fractional Inspired Oxygen 40 %; Oxygen Content ABG 16.9 %vol (16.0-22.0); Oxyhemoglobin 93.6 % THb (90.0-100.0); PO2 ABG 75.3 mmHg (80.0-100.0); PO2 FiO2 Ratio Arterial Blood 1.88 %; Total Hemoglobin 12.8 g/dL (12.0-18.0); pH ABG 7.442 (7.350-7.450)
[2023-12-26 05:26] LABS: Device NON-INVASIVE VENT; PCO2 ABG 70.5 mmHg (35.0-45.0); Site Drawn RIGHT BRACHIAL
[2023-12-26 05:27] LABS: Non-Invasive Expiratory Pressure 8 CMH2O; Non-Invasive Inspiratory Pressure 18 CMH2O; Non-Invasive Vent Rate 20 /MIN
[2023-12-26] MEDS: LEVOTHYROXINE SODIUM 150 MCG TABLET PO (06:33)
[2023-12-26] MEDS: TOLNAFTATE 1% POWDER 45 GM BTL 1 APPLIC TOPICAL ×2 (08:38→22:03)
[2023-12-26] MEDS: METOPROLOL TARTRATE 50 MG TAB PO ×2 (08:38→21:59)
[2023-12-26] MEDS: GABAPENTIN 300 MG CAPSULE 600 MG PO ×3 (08:38→17:58)
[2023-12-26] MEDS: OPTI-GEN TAB 2 TABLET PO (08:39)
[2023-12-26] MEDS: POTASSIUM CHLORIDE 20 MEQ ER TABLET 40 MEQ PO (08:39)
[2023-12-26] MEDS: CALCIUM/VITAMIN D 500 MG/5 MCG (200 I.U.) TABLET 1000 MG PO (08:39)
[2023-12-26] MEDS: DULoxetine HCL 30 MG CAPSULE.DR PO (08:39)
[2023-12-26] MEDS: FERROUS GLUCONATE 324 MG TABLET 648 MG PO (08:39)
[2023-12-26] MEDS: acetaZOLAMIDE SODIUM FOR INJ 500 MG VIAL 250 MG IV PUSH (08:40)
[2023-12-26] MEDS: ASCORBIC ACID 500 MG TABLET PO (08:40)
[2023-12-26] MEDS: clonazePAM (*CRX) 0.5 MG TABLET 1 MG PO (08:40)
[2023-12-26] MEDS: PANTOPRAZOLE 40 MG TABLET PO ×2 (08:40→17:58)
[2023-12-26] MEDS: WATER, STERILE FOR INJECTION 10 ML VIAL XX (08:40)
[2023-12-26] MEDS: FUROSEMIDE 40 MG TABLET PO (08:40)
[2023-12-26] MEDS: FAMOTIDINE 20 MG TABLET 40 MG PO ×2 (08:40→17:58)
[2023-12-26] MEDS: MIRABEGRON 25 MG ER TABLET PO (08:40)
[2023-12-26] MEDS: buPROPion HCL SR (12 HR) 150 MG TAB PO ×2 (08:41→21:59)
[2023-12-26 09:43] LABS: Folic Acid 9.4 ng/mL (2.76->20)
--- NOTE | 2023-12-26 12:01 | PM.IMPN ---
Progress Note: A&P Assessment and Plan (1) Respiratory failure with hypoxia and hypercapnia: Qualifiers: Chronicity: acute on chronic Qualified Code(s): J96.21 - Acute and chronic respiratory failure with hypoxia; J96.22 - Acute and chronic respiratory failure with hypercapnia Code(s): J96.91 - Respiratory failure, unspecified with hypoxia; J96.92 - Respiratory failure, unspecified with hypercapnia Status: Acute Assessment and Plan: Patient presents with SOB. ABG showing 7.34/78/207 on bipap. Repeat 7./ on bipap CXR showing diffuse lung disease c/w edema and atelectasis; can not exclude PNA WBC normal. No fevers. Had trouble weaning off BiPAP today mostly because difficulty picking up SpO2 Lasix IV x1 on 12/24. Duonebs were not continued so re-ordered. Repeat ABG this morning 7.44/71/75 on bipap. Consider adding steroids. (2) Acute on chronic diastolic CHF (congestive heart failure): Code(s): I50.33 - Acute on chronic diastolic (congestive) heart failure Status: Acute Assessment and Plan: Patient presents with shortness of breath. CXR showing diffuse lung disease. BNP not checked Echo May 2023 showing EF 70%, mild LVH, indeterminate diastolic fxn, mild valvular disease and moderate pHTN. No IV Lasix on admission Lasix IV once 12/24. Monitor UOP, BP, renal function and electrolytes (3) Persistent atrial fibrillation: Code(s): I48.19 - Other persistent atrial fibrillation Status: Acute Assessment and Plan: Patient with known AFib. Rate okay. Continue Xarelto. Metoprolol resumed with parameters on metoprolol (4) Obstructive sleep apnea on CPAP: Code(s): G47.33 - Obstructive sleep apnea (adult) (pediatric); Z99.89 - Dependence on other enabling machines and devices Status: Chronic Assessment and Plan: Currently on BiPAP. Wean off as toelrated (5) Chronic wound infection of abdomen: Qualifiers: Encounter type: subsequent encounter Qualified Code(s): S31.109D - Unspecified open wound of abdominal wall, unspecified quadrant without penetration into peritoneal cavity, subsequent encounter; L08.9 - Local infection of the skin and subcutaneous tissue, unspecified Code(s): S31.109A - Unspecified open wound of abdominal wall, unspecified quadrant without penetration into peritoneal cavity, initial encounter; L08.9 - Local infection of the skin and subcutaneous tissue, unspecified Status: Acute Assessment and Plan: Wound are consulted. Continue dressing changes. Routine wound care. (6) Morbid obesity with BMI of 50.0-59.9, adult: Code(s): E66.01 - Morbid (severe) obesity due to excess calories; Z68.43 - Body mass index [BMI] 50.0-59.9, adult Status: Acute Assessment and Plan: Lifestyle and diet modifications Plan DVT prophylaxis - Xarelto Code status - full Subjective Date/time seen: 12/26/23 12:01 Interval history: 82yo female with AFib, HTN, chronic respiratory failure on 4 L, CHARLES and chronic dCHF here for shortness of breath and hypoxic.?? Slept well. Mild pleuritic chest pain. Cough is nonproductive. no n/v. Tolerated the BiPAP last night. Exam Narrative: AF 97.7 144/97 86 20 99% bipap Gen - NARD, appears comfortable with bipap in place Chest - decreased BS in the right base o/w distant BS with end expiratory wheezes. CV - irregular. Tele showing AFib with controlled rate Abd - Soft, obese, NT. Ext - No pedal edema Psych - Nml mood and affect Skin - Warm and dry. Chronic venous stasis skin changes bilateral lower extremities. Mid-abdominal wound with purulent drainage from a small hole with in the wound. Objective Data Vital Signs Vital Signs: Vital Signs - 24 hr 12/25/23 13:20 12/25/23 14:00 12/25/23 15:05 Temperature Pulse Rate 81 77 78 Respiratory Rate 23 H 22 H Blood Pressure Pulse Oximetry 98 98 Oxygen Delive
[2023-12-26] MEDS: RIVAROXABAN 20 MG TABLET PO (17:58)
[2023-12-26] MEDS: MIRTAZAPINE SOLTAB 15 MG TAB.DISPER PO (21:59)
[2023-12-26] MEDS: traZODone HCL 50 MG TABLET 200 MG PO (21:59)
[2023-12-27] VITALS (31 sets, daily range): BP systolic 126–152; BP diastolic 70–86; PULSE 74–93; RESP 20–24; TEMP 36–37.1; O2SAT 92–100
[2023-12-27] MEDS: IPRATROPIUM 0.5 MG/ALBUTEROL SULFATE 2.5 MG AMPUL.NEB 3 ML INHALATION ×4 (01:51→20:48)
[2023-12-27 04:43] LABS: Blood Urea Nitrogen 25 mg/dL (7-17); Carbon Dioxide > 40 mmol/L (22-30); Chloride 90 mmol/L (98-107); Estimated CRCL calculation 42 ml/min; Estimated Glomerular Filt Rate 48; Glucose 82 mg/dL (65-110); Magnesium 2.3 mg/dL (1.6-2.3); Potassium 3.6 mmol/L (3.4-5.0); Sodium 139 mmol/L (137-145)
[2023-12-27 05:10] LABS: Alveolar/Arterial O2 Gradient 151.4 mmHg; Base Excess ABG 12.5 mEq/l (+/-2.0); Fractional Inspired Oxygen 40 %; HCO3 ABG 39.5 mEq/l (22.0-26.0); Oxygen Content ABG 15.2 %vol (16.0-22.0); Oxygen Saturation ABG 90.8 % (95.0-100.0); Oxyhemoglobin 88.8 % THb (90.0-100.0); PO2 ABG 60.8 mmHg (80.0-100.0); PO2 FiO2 Ratio Arterial Blood 1.52 %; Total Hemoglobin 12.2 g/dL (12.0-18.0); pH ABG 7.412 (7.350-7.450)
[2023-12-27 05:11] LABS: Device BIPAP; Modified Allen's Test Pass; PCO2 ABG 63.5 mmHg (35.0-45.0); Site Drawn RIGHT RADIAL
[2023-12-27 05:13] LABS: Expiratory Pressure 8 cmH2O; Inspiratory Pressure 18 cmH2O
[2023-12-27] MEDS: LEVOTHYROXINE SODIUM 150 MCG TABLET PO (05:57)
[2023-12-27 09:28] LABS: Basophils Percent Auto 0.4 % (0.2-1.2); Eosinophils Absolute Auto 0.2 K/mm3 (0-0.3); Eosinophils Percent Auto 2.2 % (0-4.4); Hematocrit 44.3 % (37.0-47.0); Hemoglobin 13.5 g/dL (12.0-15.0); Immature Granulocyte Absolute 0.03 K/mm3 (0.00-0.031); Immature Granulocyte Percent A 0.4 % (0-0.5); Lymphocytes Absolute Auto 0.82 K/mm3 (0.9-3.2); Mean Corpuscular HGB Conc 30.5 g/dl (32-36); Mean Platelet Volume 10.5 fl (7.4-10.4); Monocytes Absolute Auto 0.5 K/mm3 (0.1-0.6); Monocytes Percent Auto 7.8 % (2.6-8.5); Neutrophils Absolute Auto 5.3 K/mm3 (1.3-6.7); Neutrophils Percent Auto 77.2 % (45.5-73.1); Platelet Count Result 191 k/mm3 (150-375); Red Blood Count 4.22 M/mm3 (4.2-5.4); Red Cell Distribution Width 16.1 % (11.5-14.5); White Blood Count 6.8 K/mm3 (4.5-10.0)
--- NOTE | 2023-12-27 09:40 | PM.IMPN ---
Progress Note: A&P Assessment and Plan (1) Respiratory failure with hypoxia and hypercapnia: Qualifiers: Chronicity: acute on chronic Qualified Code(s): J96.21 - Acute and chronic respiratory failure with hypoxia; J96.22 - Acute and chronic respiratory failure with hypercapnia Code(s): J96.91 - Respiratory failure, unspecified with hypoxia; J96.92 - Respiratory failure, unspecified with hypercapnia Status: Acute Assessment and Plan: Patient presents with SOB. ABG showing 7.34/78/207 on bipap. Repeat 7.3572/72 on bipap CXR showing diffuse lung disease c/w edema and atelectasis; can not exclude PNA WBC normal. No fevers. Lasix IV x1 on 12/24. Duonebs were not continued so re-ordered. BiPAP settings adjusted and repeat ABG this morning 7.41/63/61 on bipap. CXR reviewed showing airspace opacities in the perihilar region and lower lobes worse on right and better on left WBC remains normal. CRP and PCT levels pending Wheezing better. Add CPT to improve atelectasis. PT/OT; ST to evaluate to exclude aspiration (2) Acute on chronic diastolic CHF (congestive heart failure): Code(s): I50.33 - Acute on chronic diastolic (congestive) heart failure Status: Acute Assessment and Plan: Patient presents with shortness of breath. CXR showing diffuse lung disease. BNP not checked Echo May 2023 showing EF 70%, mild LVH, indeterminate diastolic fxn, mild valvular disease and moderate pHTN. No IV Lasix on admission Lasix IV once 12/24 then resumed on home oral lasix. Cr up to 1.1. Monitor UOP, BP, renal function and electrolytes (3) Persistent atrial fibrillation: Code(s): I48.19 - Other persistent atrial fibrillation Status: Acute Assessment and Plan: Patient with known AFib. Rate controlled Continue Xarelto. Metoprolol resumed with parameters on metoprolol (4) Obstructive sleep apnea on CPAP: Code(s): G47.33 - Obstructive sleep apnea (adult) (pediatric); Z99.89 - Dependence on other enabling machines and devices Status: Chronic Assessment and Plan: Currently on BiPAP. Continue to wean to wearing BiPAP at night and with naps. (5) Chronic wound infection of abdomen: Qualifiers: Encounter type: subsequent encounter Qualified Code(s): S31.109D - Unspecified open wound of abdominal wall, unspecified quadrant without penetration into peritoneal cavity, subsequent encounter; L08.9 - Local infection of the skin and subcutaneous tissue, unspecified Code(s): S31.109A - Unspecified open wound of abdominal wall, unspecified quadrant without penetration into peritoneal cavity, initial encounter; L08.9 - Local infection of the skin and subcutaneous tissue, unspecified Status: Acute Assessment and Plan: Wound care consulted. Continue dressing changes. Routine wound care. (6) Morbid obesity with BMI of 50.0-59.9, adult: Code(s): E66.01 - Morbid (severe) obesity due to excess calories; Z68.43 - Body mass index [BMI] 50.0-59.9, adult Status: Acute Assessment and Plan: Lifestyle and diet modifications Plan DVT prophylaxis - Joserelto Code status - full Subjective Date/time seen: 12/27/23 09:40 Interval history: 82yo female with AFib, HTN, chronic respiratory failure on 4 L, CHARLES and chronic dCHF here for shortness of breath and hypoxic.?? Slept okay. No SOB or CP. No odynophagia or dysphagia. Cough nonproductive. no n/v. Feels hungry Exam Narrative: AF 96.8 143/79 81 20 93% bipap (currenlty on NC) Gen - NARD Chest - decreased BS in the right base with left base inspiratory crackles. CV - irregular. Tele showing AFib with controlled rate Abd - Soft, obese, NT. Ext - No pedal edema Psych - Nml mood and affect Skin - Warm and dry. Chronic venous stasis skin changes bilateral lower extremities. Mid-abdominal wound with dressing in place Objective Data Vital Signs Vital Si
[2023-12-27] MEDS: FUROSEMIDE 40 MG TABLET PO (09:42)
[2023-12-27] MEDS: OPTI-GEN TAB 2 TABLET PO (09:42)
[2023-12-27] MEDS: buPROPion HCL SR (12 HR) 150 MG TAB PO ×2 (09:42→20:48)
[2023-12-27] MEDS: ASCORBIC ACID 500 MG TABLET PO (09:42)
[2023-12-27] MEDS: GABAPENTIN 300 MG CAPSULE 600 MG PO ×3 (09:42→16:50)
[2023-12-27] MEDS: DULoxetine HCL 30 MG CAPSULE.DR PO (09:43)
[2023-12-27] MEDS: MIRABEGRON 25 MG ER TABLET PO (09:43)
[2023-12-27] MEDS: FAMOTIDINE 20 MG TABLET 40 MG PO ×2 (09:43→16:50)
[2023-12-27] MEDS: FERROUS GLUCONATE 324 MG TABLET 648 MG PO (09:43)
[2023-12-27] MEDS: CALCIUM/VITAMIN D 500 MG/5 MCG (200 I.U.) TABLET 1000 MG PO (09:44)
[2023-12-27] MEDS: clonazePAM (*CRX) 0.5 MG TABLET 1 MG PO (09:44)
[2023-12-27] MEDS: PANTOPRAZOLE 40 MG TABLET PO ×2 (09:44→16:50)
[2023-12-27] MEDS: METOPROLOL TARTRATE 50 MG TAB PO ×2 (09:44→20:47)
[2023-12-27] MEDS: TOLNAFTATE 1% POWDER 45 GM BTL 1 APPLIC TOPICAL ×2 (09:44→20:48)
[2023-12-27 10:43] LABS: CRP 1.6 mg/dL (<1.0)
[2023-12-27 10:53] LABS: Procalcitonin 0.1 ng/mL
--- NOTE | 2023-12-27 12:16 | PCSTNOTE ---
Please refer to the Bedside Swallow Evaluation in the EMR. Please note, silent aspiration cannot be ruled out at bedside.
--- NOTE | 2023-12-27 12:22 | PCSTNOTE ---
Addendum entered by GARRETT Reyes 12/27/23 12:22: The patient was seen for a Bedside Swallow Evaluation after being admitted with a variety of diagnoses including pneumonia. Chest x-ray 12/26 revealed: airspace opacities in the perihilar regions and lower lung zones with worsening on the right and mild improvement on the left, consistent with atelectasis versus pneumonia, Small left pleural effusion, and Cardiomegaly. Patient admitted that she feels she has been coughing more frequently when consuming meals than she used to and stated that a nurse at her facility wondered after patient had fallen, if patient had had a stroke at some point and patient verbalized wondering this as well. Patient was placed more upright in bed upon therapist arrival as she finished oatmeal and drank water. Nurse was present and stated that patient had been showing no signs of aspiration until she started coughing on a sip of liquid after taking medicine although she had tolerated both pills and liquid up until that point. Patient was observed to cough randomly for several minutes while therapist was speaking with RN however patient no longer coughed when therapist approached her or throughout her interview or evaluation. Patient consumed additional water per hospital mug/straw with no additional coughing noted. She was asked to imitate speech sounds and exhibited mild weakness in labial closure and lingual tip strength. Therapist instructed the patient in the importance of upright positioning, that she must tell nursing to place her upright as possible and use pillows to assist with upright positioning. Patient voiced understanding. Additionally, therapist instructed the patient in the use of head flexion to assist with prevention of aspiration. She voiced and demonstrated understanding. At this time, patient may remain on Regular Diet, Level 7, and Regular Liquids, Level 0 with use of head flexion and upright positioning. She will be seen for direct Speech Therapy 3-5x/weekly for two weeks while inpatient for instruction of swallowing strengthening exercises and to reinforce use of head flexion and other safe swallowing strategies in order to improve airway protection. She voiced understanding of recommendations. Dr. Correa and RN, notified of results and recommendations. Thank you for this referral. Original Note: Please refer to the Bedside Swallow Evaluation in the EMR. Please note, silent aspiration cannot be ruled out at bedside.
[2023-12-27] MEDS: RIVAROXABAN 20 MG TABLET PO (16:50)
[2023-12-27] MEDS: MIRTAZAPINE SOLTAB 15 MG TAB.DISPER PO (20:47)
[2023-12-27] MEDS: traZODone HCL 50 MG TABLET 200 MG PO (20:48)
[2023-12-28] VITALS (31 sets, daily range): BP systolic 123–157; BP diastolic 66–116; PULSE 66–114; RESP 12–28; TEMP 36.3–36.8; O2SAT 88–100
[2023-12-28] MEDS: IPRATROPIUM 0.5 MG/ALBUTEROL SULFATE 2.5 MG AMPUL.NEB 3 ML INHALATION ×4 (01:57→20:34)
[2023-12-28 04:25] LABS: Basophils Percent Auto 0.6 % (0.2-1.2); Eosinophils Absolute Auto 0.2 K/mm3 (0-0.3); Eosinophils Percent Auto 3.7 % (0-4.4); Hematocrit 42.3 % (37.0-47.0); Hemoglobin 12.5 g/dL (12.0-15.0); Immature Granulocyte Absolute 0.02 K/mm3 (0.00-0.031); Immature Granulocyte Percent A 0.4 % (0-0.5); Lymphocytes Absolute Auto 0.74 K/mm3 (0.9-3.2); Lymphocytes Percent Auto 13.7 % (18.3-44.2); Mean Corpuscular HGB Conc 29.6 g/dl (32-36); Mean Corpuscular Hemoglobin 31.7 pg (26-34); Mean Corpuscular Volume 107.4 fl (80-100); Mean Platelet Volume 10.4 fl (7.4-10.4); Monocytes Absolute Auto 0.6 K/mm3 (0.1-0.6); Monocytes Percent Auto 10.3 % (2.6-8.5); Neutrophils Absolute Auto 3.9 K/mm3 (1.3-6.7); Neutrophils Percent Auto 71.3 % (45.5-73.1); Platelet Count Result 175 k/mm3 (150-375); Red Blood Count 3.94 M/mm3 (4.2-5.4); Red Cell Distribution Width 15.8 % (11.5-14.5); White Blood Count 5.4 K/mm3 (4.5-10.0)
[2023-12-28 04:48] LABS: Albumin Level 3.2 g/dL (3.5-5.1); Anion Gap 6 mmol/L (4-12); Blood Urea Nitrogen 22 mg/dL (7-17); Calcium 8.7 mg/dL (8.4-10.2); Carbon Dioxide 33 mmol/L (22-30); Chloride 97 mmol/L (98-107); Estimated CRCL calculation 57 ml/min; Estimated Glomerular Filt Rate > 60; Glucose 86 mg/dL (65-110); Phosphorus 3.5 mg/dL (2.5-4.5); Sodium 136 mmol/L (137-145)
[2023-12-28 04:52] LABS: Anisocytosis 1+; Macrocytosis 1+ (NORMAL); Ovalocytes 1+; Platelet Estimate Adequate (Adequate); Schistocytes None Seen
[2023-12-28] MEDS: LEVOTHYROXINE SODIUM 150 MCG TABLET PO (06:01)
[2023-12-28] MEDS: CALCIUM/VITAMIN D 500 MG/5 MCG (200 I.U.) TABLET 1000 MG PO (09:52)
[2023-12-28] MEDS: FERROUS GLUCONATE 324 MG TABLET 648 MG PO (09:52)
[2023-12-28] MEDS: METOPROLOL TARTRATE 50 MG TAB PO ×2 (09:53→21:12)
[2023-12-28] MEDS: PANTOPRAZOLE 40 MG TABLET PO ×2 (09:53→17:18)
[2023-12-28] MEDS: ASCORBIC ACID 500 MG TABLET PO (09:53)
[2023-12-28] MEDS: GABAPENTIN 300 MG CAPSULE 600 MG PO ×3 (09:53→17:19)
[2023-12-28] MEDS: buPROPion HCL SR (12 HR) 150 MG TAB PO ×2 (09:53→21:13)
[2023-12-28] MEDS: OPTI-GEN TAB 2 TABLET PO (09:53)
[2023-12-28] MEDS: TOLNAFTATE 1% POWDER 45 GM BTL 1 APPLIC TOPICAL ×2 (09:54→21:13)
[2023-12-28] MEDS: clonazePAM (*CRX) 0.5 MG TABLET 1 MG PO (09:54)
[2023-12-28] MEDS: FUROSEMIDE 40 MG TABLET PO (09:54)
[2023-12-28] MEDS: FAMOTIDINE 20 MG TABLET 40 MG PO ×2 (09:54→17:19)
[2023-12-28] MEDS: MIRABEGRON 25 MG ER TABLET PO (09:54)
[2023-12-28] MEDS: DULoxetine HCL 30 MG CAPSULE.DR PO (09:54)
[2023-12-28 11:48] LABS: Glucose Point of Care 126 mg/dl (65-105)
--- NOTE | 2023-12-28 11:56 | PCPTNOTE ---
Addendum entered by Ajit Albright, PT 12/28/23 11:56: Order written for physical therapy, but patient is a [facility] patient [facility] and is mechanical lift mechanical lift for transfers and non-ambulatory. Patient currently at baseline. Original Note: Order written for physicsal therapy
--- NOTE | 2023-12-28 11:58 | PCOTNOTE ---
Order written for occupational therapy, patient is a assisted patient at SNF and is mechanical lift mechanical lift for transfers and non-ambulatory. Patient reports assist for all ADLs and functional transfers. Patient currently at baseline.
--- NOTE | 2023-12-28 12:24 | PM.IMPN ---
Progress Note: A&P Assessment and Plan (1) Respiratory failure with hypoxia and hypercapnia: Qualifiers: Chronicity: acute on chronic Qualified Code(s): J96.21 - Acute and chronic respiratory failure with hypoxia; J96.22 - Acute and chronic respiratory failure with hypercapnia Code(s): J96.91 - Respiratory failure, unspecified with hypoxia; J96.92 - Respiratory failure, unspecified with hypercapnia Status: Acute Assessment and Plan: Patient presents with SOB. ABG showing 7.34/78/207 on bipap. Repeat 7.35/72/72 on bipap CXR showing diffuse lung disease c/w edema and atelectasis; can not exclude PNA WBC normal. No fevers. Lasix IV x1 on 12/24. Duonebs were not continued so re-ordered. BiPAP settings adjusted and repeat ABG 7.41/63/61 on bipap. CXR repeated showing airspace opacities in the perihilar region and lower lobes worse on right and better on left WBC remains normal. CRP 1.6 with PCT 0.1 Wheezing off and on. CPT was added to improve atelectasis. ST evaluation recommended proper positioning when eating PT/OT to evaluate and treat Lasix IV once. Add steroids. Continue to hold on abx (2) Acute on chronic diastolic CHF (congestive heart failure): Code(s): I50.33 - Acute on chronic diastolic (congestive) heart failure Status: Acute Assessment and Plan: Patient presents with shortness of breath. CXR showing diffuse lung disease. BNP not checked Echo May 2023 showing EF 70%, mild LVH, indeterminate diastolic fxn, mild valvular disease and moderate pHTN. No IV Lasix on admission Lasix IV once 12/24 then resumed on home oral lasix. Cr was up to 1.1 but normal now Repeat Lasix IV. Monitor UOP, BP, renal function and electrolytes (3) Persistent atrial fibrillation: Code(s): I48.19 - Other persistent atrial fibrillation Status: Acute Assessment and Plan: Patient with known AFib. Rate controlled Continue Xarelto. Metoprolol resumed with parameters on metoprolol (4) Obstructive sleep apnea on CPAP: Code(s): G47.33 - Obstructive sleep apnea (adult) (pediatric); Z99.89 - Dependence on other enabling machines and devices Status: Chronic Assessment and Plan: Currently on BiPAP. Continue to wean to wearing BiPAP at night and with naps. (5) Chronic wound infection of abdomen: Qualifiers: Encounter type: subsequent encounter Qualified Code(s): S31.109D - Unspecified open wound of abdominal wall, unspecified quadrant without penetration into peritoneal cavity, subsequent encounter; L08.9 - Local infection of the skin and subcutaneous tissue, unspecified Code(s): S31.109A - Unspecified open wound of abdominal wall, unspecified quadrant without penetration into peritoneal cavity, initial encounter; L08.9 - Local infection of the skin and subcutaneous tissue, unspecified Status: Acute Assessment and Plan: Wound care consulted. Continue dressing changes. Routine wound care. (6) Morbid obesity with BMI of 50.0-59.9, adult: Code(s): E66.01 - Morbid (severe) obesity due to excess calories; Z68.43 - Body mass index [BMI] 50.0-59.9, adult Status: Acute Assessment and Plan: Lifestyle and diet modifications Plan DVT prophylaxis - Xarelto Code status - full Subjective Date/time seen: 12/28/23 12:24 Interval history: 82yo female with AFib, HTN, chronic respiratory failure on 4 L, CHARLES and chronic dCHF here for shortness of breath and hypoxic.?? Feels better. Eating well. Tolerated the BiPAP last night. She states she is compliniat with bipap at home. She is AOx4 but has trouble answering direct questions at times. Exam Narrative: AF 97.9 138/108 80 12 92% HFNC Gen - NARD Chest - left base inspiratory crackles with distant BS and expiratory wheeze CV - irregular. Tele showing AFib with controlled rate Abd - Soft, obese, NT. Ext - No pedal edema Psych - Nml mood and aff
[2023-12-28] MEDS: FUROSEMIDE INJ 40 MG/4 ML VIAL IV PUSH (13:22)
[2023-12-28] MEDS: predniSONE 20 MG TABLET 40 MG PO (13:23)
[2023-12-28] MEDS: RIVAROXABAN 20 MG TABLET PO (17:19)
[2023-12-28] MEDS: traZODone HCL 50 MG TABLET 200 MG PO (21:13)
[2023-12-28] MEDS: MIRTAZAPINE SOLTAB 15 MG TAB.DISPER PO (21:13)
[2023-12-29] VITALS (26 sets, daily range): BP systolic 122–150; BP diastolic 76–126; PULSE 64–98; RESP 16–24; TEMP 36.2–36.7; O2SAT 91–100
[2023-12-29 04:56] LABS: Blood Urea Nitrogen 18 mg/dL (7-17); Calcium 8.8 mg/dL (8.4-10.2); Carbon Dioxide > 40 mmol/L (22-30); Chloride 89 mmol/L (98-107); Estimated CRCL calculation 46 ml/min; Estimated Glomerular Filt Rate 53; Glucose 148 mg/dL (65-110); Potassium 3.6 mmol/L (3.4-5.0); Sodium 138 mmol/L (137-145)
[2023-12-29] MEDS: LEVOTHYROXINE SODIUM 150 MCG TABLET PO (06:12)
[2023-12-29] MEDS: IPRATROPIUM 0.5 MG/ALBUTEROL SULFATE 2.5 MG AMPUL.NEB 3 ML INHALATION ×3 (08:43→18:52)
[2023-12-29] MEDS: METOPROLOL TARTRATE 50 MG TAB PO ×2 (09:28→20:40)
[2023-12-29] MEDS: FERROUS GLUCONATE 324 MG TABLET 648 MG PO (09:29)
[2023-12-29] MEDS: predniSONE 20 MG TABLET 40 MG PO (09:29)
[2023-12-29] MEDS: GABAPENTIN 300 MG CAPSULE 600 MG PO ×3 (09:29→17:06)
[2023-12-29] MEDS: clonazePAM (*CRX) 0.5 MG TABLET 1 MG PO (09:29)
[2023-12-29] MEDS: CALCIUM/VITAMIN D 500 MG/5 MCG (200 I.U.) TABLET 1000 MG PO (09:30)
[2023-12-29] MEDS: ASCORBIC ACID 500 MG TABLET PO (09:30)
[2023-12-29] MEDS: TOLNAFTATE 1% POWDER 45 GM BTL 1 APPLIC TOPICAL ×2 (09:30→20:40)
[2023-12-29] MEDS: FAMOTIDINE 20 MG TABLET 40 MG PO ×2 (09:30→17:06)
[2023-12-29] MEDS: OPTI-GEN TAB 2 TABLET PO (09:30)
[2023-12-29] MEDS: MIRABEGRON 25 MG ER TABLET PO (09:30)
[2023-12-29] MEDS: FUROSEMIDE 40 MG TABLET PO (09:30)
[2023-12-29] MEDS: PANTOPRAZOLE 40 MG TABLET PO ×2 (09:30→17:06)
[2023-12-29] MEDS: DULoxetine HCL 30 MG CAPSULE.DR PO (09:30)
[2023-12-29] MEDS: buPROPion HCL SR (12 HR) 150 MG TAB PO ×2 (09:30→20:39)
--- NOTE | 2023-12-29 13:50 | PM.IMPN ---
Progress Note: A&P Assessment and Plan (1) Respiratory failure with hypoxia and hypercapnia: Qualifiers: Chronicity: acute on chronic Qualified Code(s): J96.21 - Acute and chronic respiratory failure with hypoxia; J96.22 - Acute and chronic respiratory failure with hypercapnia Code(s): J96.91 - Respiratory failure, unspecified with hypoxia; J96.92 - Respiratory failure, unspecified with hypercapnia Status: Acute Assessment and Plan: Patient with chronic respiratory failure on 4L NC and wears BiPAP at night. Patient presents with SOB. ABG showing 7.34/78/207 initially (on bipap). Repeat 7.35/72/72 on bipap CXR showing diffuse lung disease c/w edema and atelectasis; can not exclude PNA WBC normal. No fevers. Lasix IV x1 on 12/24. Duonebs ordered. BiPAP settings adjusted and repeat ABG 7.41/63/61 on bipap. CXR repeated showing airspace opacities in the perihilar region and lower lobes worse on right and better on left WBC remains normal. CRP 1.6 with PCT 0.1 Wheezing off and on. Prednisone added. CPT was added to improve atelectasis. ST evaluation recommended proper positioning when eating PT/OT to evaluate and treat Weaned back down to her baseline 4L. Contnue BiPAP at night and with naps (2) Acute on chronic diastolic CHF (congestive heart failure): Code(s): I50.33 - Acute on chronic diastolic (congestive) heart failure Status: Acute Assessment and Plan: Patient presents with shortness of breath. CXR showing diffuse lung disease. BNP not checked Echo May 2023 showing EF 70%, mild LVH, indeterminate diastolic fxn, mild valvular disease and moderate pHTN. No IV Lasix on admission Lasix IV periodically resulting in negative fluid balance (-1.7L plus unmeasured voids) Cr was up to 1.1 but normal now Continue home oral lasix. Monitor UOP, BP, renal function and electrolytes. Add extra lasix. Acetazolamide once. (3) Persistent atrial fibrillation: Code(s): I48.19 - Other persistent atrial fibrillation Status: Acute Assessment and Plan: Patient with known AFib. Rate controlled Continue Xarelto. Metoprolol resumed with parameters on metoprolol (4) Obstructive sleep apnea on CPAP: Code(s): G47.33 - Obstructive sleep apnea (adult) (pediatric); Z99.89 - Dependence on other enabling machines and devices Status: Chronic Assessment and Plan: Currently on BiPAP. Continue BiPAP at night and with naps. (5) Chronic wound infection of abdomen: Qualifiers: Encounter type: subsequent encounter Qualified Code(s): S31.109D - Unspecified open wound of abdominal wall, unspecified quadrant without penetration into peritoneal cavity, subsequent encounter; L08.9 - Local infection of the skin and subcutaneous tissue, unspecified Code(s): S31.109A - Unspecified open wound of abdominal wall, unspecified quadrant without penetration into peritoneal cavity, initial encounter; L08.9 - Local infection of the skin and subcutaneous tissue, unspecified Status: Acute Assessment and Plan: Wound care consulted. Continue dressing changes. Routine wound care. (6) Morbid obesity with BMI of 50.0-59.9, adult: Code(s): E66.01 - Morbid (severe) obesity due to excess calories; Z68.43 - Body mass index [BMI] 50.0-59.9, adult Status: Acute Assessment and Plan: Lifestyle and diet modifications Plan DVT prophylaxis - Xarelto Code status - full Subjective Date/time seen: 12/29/23 13:50 Interval history: 82yo female with AFib, HTN, chronic respiratory failure on 4 L, CHARLES and chronic dCHF here for shortness of breath and hypoxic.?? Slept okay. No n/v. Has molina having dysuria for the past week. Feels SOB but more chronic. Not been out of bed today. Cough is nonproductive. 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 No chest pain Exam Narrative: AF 97.1 143/109 85 20 99% HFNC Gen - NARD Chest - distant B
[2023-12-29] MEDS: VALSARTAN 160 MG TABLET PO (14:37)
[2023-12-29] MEDS: FUROSEMIDE 20 MG TABLET PO (14:37)
[2023-12-29] MEDS: RIVAROXABAN 20 MG TABLET PO (17:06)
--- NOTE | 2023-12-29 19:33 | PC.NURSE ---
This patient, Michelle Rogel, was transferred to [facility] on 12/29/23. Personal belongings sent with patient. Report given to EDWARD Mcginnis. Appropriate documentation sent with patient.
[2023-12-29] MEDS: traZODone HCL 50 MG TABLET 200 MG PO (20:39)
[2023-12-29] MEDS: MIRTAZAPINE SOLTAB 15 MG TAB.DISPER PO (20:44)
[2023-12-30] VITALS (15 sets, daily range): BP systolic 129–153; BP diastolic 84–100; PULSE 69–99; RESP 18–20; TEMP 36.2; O2SAT 93–100
[2023-12-30] MEDS: IPRATROPIUM 0.5 MG/ALBUTEROL SULFATE 2.5 MG AMPUL.NEB 3 ML INHALATION ×3 (01:18→13:54)
[2023-12-30 05:38] LABS: Basophils Percent Auto 0.3 % (0.2-1.2); Eosinophils Absolute Auto 0.1 K/mm3 (0-0.3); Eosinophils Percent Auto 1.6 % (0-4.4); Hematocrit 43.5 % (37.0-47.0); Hemoglobin 13.8 g/dL (12.0-15.0); Immature Granulocyte Absolute 0.04 K/mm3 (0.00-0.031); Immature Granulocyte Percent A 0.6 % (0-0.5); Lymphocytes Absolute Auto 1.01 K/mm3 (0.9-3.2); Lymphocytes Percent Auto 16.1 % (18.3-44.2); Mean Corpuscular HGB Conc 31.7 g/dl (32-36); Mean Corpuscular Hemoglobin 32.2 pg (26-34); Mean Corpuscular Volume 101.4 fl (80-100); Monocytes Absolute Auto 0.7 K/mm3 (0.1-0.6); Monocytes Percent Auto 10.5 % (2.6-8.5); Neutrophils Absolute Auto 4.4 K/mm3 (1.3-6.7); Neutrophils Percent Auto 70.9 % (45.5-73.1); Platelet Count Result 184 k/mm3 (150-375); Red Blood Count 4.29 M/mm3 (4.2-5.4); Red Cell Distribution Width 15.4 % (11.5-14.5); White Blood Count 6.3 K/mm3 (4.5-10.0)
[2023-12-30 05:53] LABS: Albumin Level 3.9 g/dL (3.5-5.1); Blood Urea Nitrogen 22 mg/dL (7-17); Calcium 8.8 mg/dL (8.4-10.2); Carbon Dioxide > 40 mmol/L (22-30); Chloride 90 mmol/L (98-107); Estimated CRCL calculation 51 ml/min; Estimated Glomerular Filt Rate 60; Glucose 88 mg/dL (65-110); Magnesium 2.3 mg/dL (1.6-2.3); Potassium 3.3 mmol/L (3.4-5.0); Sodium 138 mmol/L (137-145)
[2023-12-30] MEDS: LEVOTHYROXINE SODIUM 150 MCG TABLET PO (06:55)
[2023-12-30] MEDS: predniSONE 20 MG TABLET 40 MG PO (08:51)
[2023-12-30] MEDS: acetaZOLAMIDE SODIUM FOR INJ 500 MG VIAL 250 MG IV PUSH (08:51)
[2023-12-30] MEDS: ASCORBIC ACID 500 MG TABLET PO (08:52)
[2023-12-30] MEDS: CYANOCOBALAMIN 1,000 MCG TABLET 1000 MCG PO (08:53)
[2023-12-30] MEDS: clonazePAM (*CRX) 0.5 MG TABLET 1 MG PO (08:53)
[2023-12-30] MEDS: buPROPion HCL SR (12 HR) 150 MG TAB PO (08:53)
[2023-12-30] MEDS: CALCIUM/VITAMIN D 500 MG/5 MCG (200 I.U.) TABLET 1000 MG PO (08:53)
[2023-12-30] MEDS: DULoxetine HCL 30 MG CAPSULE.DR PO (08:54)
[2023-12-30] MEDS: FUROSEMIDE 40 MG TABLET PO (08:54)
[2023-12-30] MEDS: FERROUS GLUCONATE 324 MG TABLET 648 MG PO (08:54)
[2023-12-30] MEDS: FAMOTIDINE 20 MG TABLET 40 MG PO (08:54)
[2023-12-30] MEDS: MIRABEGRON 25 MG ER TABLET PO (08:55)
[2023-12-30] MEDS: GABAPENTIN 300 MG CAPSULE 600 MG PO ×2 (08:55→12:11)
[2023-12-30] MEDS: METOPROLOL TARTRATE 50 MG TAB PO (08:55)
[2023-12-30] MEDS: PANTOPRAZOLE 40 MG TABLET PO (08:56)
[2023-12-30] MEDS: OPTI-GEN TAB 2 TABLET PO (08:56)
[2023-12-30] MEDS: VALSARTAN 160 MG TABLET PO (08:56)
[2023-12-30] MEDS: ACETAMINOPHEN 325 MG TABLET 650 MG PO (10:37)
[2023-12-30] MEDS: WATER, STERILE FOR INJECTION 10 ML VIAL XX (10:38)
--- NOTE | 2023-12-30 10:47 | PM.DS ---
DS: Admitting Diagnosis Discharge Date 12/30/23 Admitting Diagnosis Shortness of breath DS: Discharge Diagnosis Discharge Diagnosis (1) Respiratory failure with hypoxia and hypercapnia: Qualifiers: Chronicity: acute on chronic Qualified Code(s): J96.21 - Acute and chronic respiratory failure with hypoxia; J96.22 - Acute and chronic respiratory failure with hypercapnia Code(s): J96.91 - Respiratory failure, unspecified with hypoxia; J96.92 - Respiratory failure, unspecified with hypercapnia Status: Acute (2) Acute on chronic diastolic CHF (congestive heart failure): Code(s): I50.33 - Acute on chronic diastolic (congestive) heart failure Status: Acute (3) Persistent atrial fibrillation: Code(s): I48.19 - Other persistent atrial fibrillation Status: Acute (4) Obstructive sleep apnea on CPAP: Code(s): G47.33 - Obstructive sleep apnea (adult) (pediatric); Z99.89 - Dependence on other enabling machines and devices Status: Chronic (5) Chronic wound infection of abdomen: Qualifiers: Encounter type: subsequent encounter Qualified Code(s): S31.109D - Unspecified open wound of abdominal wall, unspecified quadrant without penetration into peritoneal cavity, subsequent encounter; L08.9 - Local infection of the skin and subcutaneous tissue, unspecified Code(s): S31.109A - Unspecified open wound of abdominal wall, unspecified quadrant without penetration into peritoneal cavity, initial encounter; L08.9 - Local infection of the skin and subcutaneous tissue, unspecified Status: Acute (6) Morbid obesity with BMI of 50.0-59.9, adult: Code(s): E66.01 - Morbid (severe) obesity due to excess calories; Z68.43 - Body mass index [BMI] 50.0-59.9, adult Status: Acute DS: Summary Hospital Course Reason for hospitalization: 82yo female with AFib, HTN, chronic respiratory failure on 4 L, CHARLES and chronic dCHF here for shortness of breath and hypoxic.?Please see H&P for details. Hospital Course: Patient with chronic respiratory failure on 4L NC and wears BiPAP at night. Patient presented with SOB. ABG showing 7.34/78/207 initially (on bipap). Repeat 7.35/72/72 on bipap. CXR showing diffuse lung disease c/w edema and atelectasis; can not exclude PNA. WBC was normal. No fevers. Duonebs ordered. BiPAP settings adjusted and repeat ABG 7.41/63/61 on bipap. Echo May 2023 showing EF 70%, mild LVH, indeterminate diastolic fxn, mild valvular disease and moderate pHTN. No IV Lasix on admission but given Lasix IV periodically resulting in negative fluid balance (-3.3L plus unmeasured voids). Cr remained stable. She was transitioned to home Lasix and dose advanced. CXR repeated showing airspace opacities in the perihilar region and lower lobes worse on right and better on left. WBC remained normal. CRP 1.6 with PCT 0.1. Wheezing off and on. Prednisone added. CPT was added to improve atelectasis. ST evaluation recommended proper positioning when eating. PT/OT worked with patient. Patient with known AFib. Heart rate remained well controlled. We continued Xarelto. Metoprolol resumed with parameters. Patient with know and longstanding chronic wound infection of abdomen. Wound care consulted. We continued routine wound care and dressing changes. B12 started due to low-normal B12 level and MMA elevation in the past. Diovan held initially but resumed at half dose. Resume full dose at discharge. She had clinical improvement and was able to be weaned off BiPAP during the day. She was weaned back down to her baseline 4L. She did well and was able to be discharged on 12/30/23. Status at Discharge Cognitive/behavioral status at discharge: stable Time Spent with Patient Time attestation: Total time spent providing and/or coordinating discharge services: 35 minutes Time spent: Greater than 30 minutes Exam Narrative: AF 97.2 153/100 73 20 96% 4L Gen - NARD Chest - c
[2023-12-30] MEDS: POTASSIUM CHLORIDE 20 MEQ ER TABLET 40 MEQ PO (11:06)
[2023-12-30] MEDS: CYANOCOBALAMIN INJ 1,000 MCG/ML VIAL 1000 MCG IM (11:07)
[2023-12-30] MEDS: TOLNAFTATE 1% POWDER 45 GM BTL 1 APPLIC TOPICAL (11:10)
[2023-12-31 07:13] LABS: Methylmalonic Acid 412 nmol/L (85-423)
--- NOTE | 2024-01-01 13:36 | PC.NURSE ---
Methyl Malonic Acid results are WNL at 412. Dr. Madeline king.
== END 2023-12-30 15:56 | DRG 189 ==
LOC: ANHED 00:56 → ANHIMU 04:18 → ANH2MED 12-29 18:14
PROVIDERS: Admitting Provider Internal Medicine; Emergency Provider Student in an Organized Health Care Education/Training Program; PCP Family Medicine; Visit Provider Internal Medicine
DX: J96.21 Acute and chronic respiratory failure with hypoxia (principal); I50.33 Acute on chronic diastolic (congestive) heart failure; I48.19 Other persistent atrial fibrillation; Z68.43 Body mass index [BMI] 50.0-59.9, adult; J96.22 Acute and chronic respiratory failure with hypercapnia; I11.0 Hypertensive heart disease with heart failure; T81.41XS Infection following a procedure, superficial incisional surgical site, sequela; E66.01 Morbid (severe) obesity due to excess calories; F41.9 Anxiety disorder, unspecified; F32.A Depression, unspecified; G47.33 Obstructive sleep apnea (adult) (pediatric); G25.81 Restless legs syndrome; G89.29 Other chronic pain; H35.30 Unspecified macular degeneration; J44.9 Chronic obstructive pulmonary disease, unspecified; K21.9 Gastro-esophageal reflux disease without esophagitis; Z79.01 Long term (current) use of anticoagulants; Z85.850 Personal history of malignant neoplasm of thyroid; Z90.89 Acquired absence of other organs; Z99.89 Dependence on other enabling machines and devices; Z90.49 Acquired absence of other specified parts of digestive tract; Z98.41 Cataract extraction status, right eye; Z98.42 Cataract extraction status, left eye; Z96.653 Presence of artificial knee joint, bilateral
CPT/HCPCS: 36415; 36600; 71045; 80048; 80053; 80069; 82607; 82746; 82805; 82948; 83605; 83735; 83921; 84145; 84484; 85025; 85610; 85730; 86140; 92526; 92610; 93005; 94002; 94003; 94640; 99285; A9270; J1120; J1940; J3420; J7512

== ENCOUNTER 2024-01-12 16:29 | Inpatient (IN) | payer MEDICARE, SELFPAY ==
[2024-01-12] VITALS (27 sets, daily range): BP systolic 117–149; BP diastolic 60–102; PULSE 80–100; RESP 13–23; O2SAT 89–100
--- NOTE | ~2024-01-12 | XR_ITS ---
Portable chest x-ray Comparison: 01/12/2024 Clinical History: Evaluate left lung aeration Findings: Probable ahexs-ho-bgxnglya left pleural effusion with left basilar consolidation. There is reexpansion of the left upper lobe. There is stable haziness right lung base. Cardiomediastinal ariel houette is stable. Bones and soft tissues are unremarkable. Impression: Kspct-ct-fpqfbkcu left pleural effusion with probable left lower lobe atelectasis versus possibly pne umonia. Correlate clinically. Interval reexpansion of left upper lobe since prior exam. Persistent hazy airspace disease right lung base, which could reflect pulmonary edema versus pneumoni a. Reviewed, dictated and finalized at location . Impression: Erytm-bd-bqgblmcy left pleural effusion with probable left lower lobe atelectas is versus possibly pneumonia. Correlate clinically. Interval reexpansion of left upper lobe since prior exam. Persistent hazy airspace disease right lung base, which could reflect pulmonary edema versus pneumonia.
--- NOTE | ~2024-01-12 | XR_ITS ---
Portable chest x-ray Comparison: 01/14/2024 Clinical History: Atelectasis Findings: There is complete left lung atelectasis with white out of the left hemithorax and leftward mediastinal shift. There is hazy airspace disease right lung base. Cardiomediastinal silhouette is stable. Bones and soft tissues are unremarkable. Impression: Complete left lung atelectasis with associated leftward mediastinal shift. Hazy right basilar airspace disease, most compatible mild pulmonary edema. Correlate clinically for p neumonia. Reviewed, dictated and finalized at location . Impression: Complete left lung atelectasis with associated leftward mediastinal shift. Hazy right basilar airspace disease, most compatible mild pulmonary edema. Miranda elate clinically for pneumonia.
--- NOTE | ~2024-01-12 | XR_ITS ---
EXAMINATION: XR abdomen gastric tube insert DATE: 01/15/2024 23:54 INDICATION: Nasogastric tube placement. TECHNIQUE: An upright view of the abdomen was obtained. COMPARISON: None. FINDINGS: The nasogastric tube tip is in the stomach. The lower abdomen is excluded. IMPRESSION: 1. Nasogastric tube tip in the stomach. Reviewed, dictated and finalized at location A.
--- NOTE | ~2024-01-12 | XR_ITS ---
Portable chest x-ray Comparison: 01/31/2024 Clinical History: Atelectasis Findings: There is whiteout of the left hemithorax, compatible with extensive left lung atelectasis and possible underlying effusion. There is hazy airspace disease right lung base. Cardiomediastinal silhouette is stable. Bones and soft tissues are unremarkable. Impression: Complete left lung atelectasis with probable associated underlying left pleural effusion. Hazy bibasilar airspace disease, suggestive of pulmonary edema versus possibly pneumonia. Correlate c linically. Reviewed, dictated and finalized at location . Impression: Complete left lung atelectasis with probable associated underlying left pleural effusion. Hazy bibasilar airspace disease, suggestive of pulmonary edema versus possibly pneumonia. Correlate clinically.
--- NOTE | ~2024-01-12 | CT_ITS ---
EXAMINATION: CTA chest PE protocol DATE: 01/12/2024 21:52 INDICATION: Pneumonia. Hypoxia. TECHNIQUE: Computed tomography (CT) pulmonary angiogram of the chest was performed with 100 mL Omnipa que-350 intravenous contrast. Additional 3D reconstructions utilizing coronal maximum intensity proje ction (MIP) were performed. Automated exposure control and iterative reconstruction technique were em ployed. The dose-length product was 992.21 mGy-cm. COMPARISON: CT dated 12/05/2016 and FINDINGS: No pulmonary embolism. There is mucous plugging of the left mainstem bronchus with near complete miranda apse of the left lung. Small right pleural effusion. There is additional atelectasis in the posterior basilar left lower lobe and near complete collapse of the right middle lobe with additional mucous p lugging in the right middle lobe bronchus. 3 likely benign pleural-based nodules at the posterior seg ment of the right upper lobe unchanged since 12/05/2016. No pulmonary edema. Cardiomegaly with biatria l enlargement. Atherosclerotic coronary artery calcific lesion. Small pericardial effusion. Thoracic aorta is normal in caliber with no dissection. No pathologically enlarged thoracic lymphadenopathy. R eflux of contrast into the inferior vena cava and hepatic veins consistent with tricuspid regurgitati on 3 cm cyst at the upper pole of the left kidney. Small midline ventral hernia. Advanced bilateral g lenohumeral osteoarthritis. Severe lower lumbar spondylosis. IMPRESSION: 1. No pulmonary embolism. 2. Mucous plugging in the left mainstem bronchus and in the right middle lobe bronchus with near comp lete collapse of the left lung and right middle lobe. Underlying pneumonia within the collapsed porti on of the lung cannot be excluded. 3. Cardiomegaly with biatrial enlargement and small pericardial effusion. 4. Small fat-containing upper abdominal ventral hernia. Reviewed, dictated and finalized at location A. IMPRESSION: 1. No pulmonary embolism. 2. Mucous plugging in the left mainstem bronchus and in the right middle lobe b ronchus with near complete collapse of the left lung and right middle lobe. Und erlying pneumonia within the collapsed portion of the lung cannot be excluded. 3. Cardiomegaly with biatrial enlargement and small pericardial effusion. 4. Small fat-containing upper abdominal ventral hernia.
--- NOTE | ~2024-01-12 | XR_ITS ---
EXAMINATION: XR chest ET placement DATE: 01/15/2024 23:55 INDICATION: Intubation. TECHNIQUE: A single frontal view of the chest was obtained. COMPARISON: Chest single view 01/15/2024, chest CT 01/12/2024 FINDINGS: There are airspace opacities in all lung zones bilaterally. No pleural effusion. There is a moderate-sized right pneumothorax. There is widespread soft tissue gas in the chest wall and neck. C ardiomegaly is noted. The endotracheal tube tip is 7 mm above the jimmie. The nasogastric tube tip is beyond the inferior margin of the radiograph, but at least to the stomach. IMPRESSION: 1. Moderate-sized right pneumothorax. 2. Worsened airspace opacities in all lung zones bilaterally, consistent with pulmonary edema versus pneumonia versus hemorrhage. 3. Cardiomegaly. 4. Widespread gas in the body wall and neck. Reviewed, dictated and finalized at location A. IMPRESSION: 1. Moderate-sized right pneumothorax. 2. Worsened airspace opacities in all lung zones bilaterally, consistent with p ulmonary edema versus pneumonia versus hemorrhage. 3. Cardiomegaly. 4. Widespread gas in the body wall and neck.
--- NOTE | ~2024-01-12 | XR_ITS ---
EXAMINATION: XR chest 1V portable DATE: 01/12/2024 18:14 INDICATION: Shortness of breath TECHNIQUE: frontal view of the chest was obtained. COMPARISON: Chest radiograph dated 12/27/2023 FINDINGS: Patient is rotated towards the right. Interval improvement in opacities in the right mid and lower eloise ng zone. Bandlike discoid atelectasis/scarring at the right lower lung zone. Significant increase in now near complete opacification of the left hemithorax which obscures the left side of the cardiac me diastinal silhouette. No pneumothorax or definitive right-sided pleural effusion. Postoperative pino e at the thoracic inlet. Severe bilateral glenohumeral osteoarthritis. Thoracolumbar dextroscoliosis with at least moderate spondylosis. Partially visualized bilateral vertical jesús and pedicle screw fix ation for posterior spinal fusion in the lumbar spine. IMPRESSION: 1. New near complete opacification of the left hemithorax which could represent pneumonia, atelectasi s, pleural effusion or combination thereof. 2. Bandlike discoid atelectasis at the right lower lung zone Reviewed, dictated and finalized at location A. IMPRESSION: 1. New near complete opacification of the left hemithorax which could represent pneumonia, atelectasis, pleural effusion or combination thereof. 2. Bandlike discoid atelectasis at the right lower lung zone
--- NOTE | ~2024-01-12 | XR_ITS ---
XR chest 1V portable 01/15/2024 14:32 Indication: Increased oxygen demand Procedure: AP portable chest Comparison: Comparison to multiple prior studies sequentially, with oldest reviewed study dated 05/2023. Findings: Cardiomegaly with pulmonary edema. Small pleural effusions. No acute osseous abnormality. Impression: 1: Megaly with pulmonary edema. Reviewed, dictated and finalized at location B. Impression: 1: Megaly with pulmonary edema.
--- NOTE | 2024-01-12 16:39 | ECG_ITS ---
Test Date: 2024-01-12 16:42:10 Measurements Intervals [place] Rate: 90 P: 0 AK: 0 QRS: 74 QRSD: 78 T: 47 QT: 379 QTc: 465 Interpretive Statements ATRIAL FIBRILLATION BASELINE WANDER- V1-V3 ABNORMAL ECG Compared to ECG 12/25/2023 00:32:30 HEART RATE HAS DECREASED Electronically Signed On 01-12-2024 20:17:04 CDT by Saji Lyons D.O.
[2024-01-12 18:15] LABS: Alveolar/Arterial O2 Gradient 586.9 mmHg; Base Excess ABG 13.4 mEq/l (+/-2.0); Carboxyhemoglobin 1.8 % THb (0-2.0); Fractional Inspired Oxygen 100 %; HCO3 ABG 40.8 mEq/l (22.0-26.0); Methemoglobin ABG 0.3 %THb (0-1.5); Oxygen Content ABG 17.8 %vol (16.0-22.0); Oxygen Saturation ABG 91.7 % (95.0-100.0); Oxyhemoglobin 89.9 % THb (90.0-100.0); PO2 ABG 62.5 mmHg (80.0-100.0); PO2 FiO2 Ratio Arterial Blood 0.63 %; Total Hemoglobin 14.1 g/dL (12.0-18.0); pH ABG 7.425 (7.350-7.450)
[2024-01-12 18:17] LABS: Device NON-REBREATHER MASK; PCO2 ABG 63.6 mmHg (35.0-45.0); Site Drawn LEFT BRACHIAL
--- NOTE | 2024-01-12 18:42 | PC.NURSE ---
Lizbeth from [facility] states she will be here in approx [address] a midline in pt.
--- NOTE | 2024-01-12 20:27 | ED.SOB ---
HPI - SOB/Dyspnea General Chief Complaint: Shortness of Breath/Dyspnea Stated Complaint: SOB Time Seen by Provider: 01/12/24 16:36 Source: patient Mode of arrival: EMS Limitations: no limitations History of Present Illness HPI Narrative: Patient is an 83-year-old female, with PMH of chronic resp failure with hypoxia/hypercapnia on 5L NC at baseline, CHF, Afib on Xarelto, who presents the ED via EMS with report of shortness of breath. Patient reports she was diagnosed with pneumonia 2 days ago. Was started on Levaquin and has been taking this as prescribed. Reported having worsening shortness breath today. Chronically wears 5 L nasal cannula, but was noted to be hypoxic per EMS. Placed on non-rebreather mask. Patient has had some intermittent chest discomfort since last night. Reports persistent cough. Denies known fevers. Related Data Home Medications Medication Instructions Recorded Confirmed bupropion HCl 150 mg tablet,12 hr 150 mg PO Q12H 02/16/20 01/12/24 sustained-release mirtazapine 15 mg disintegrating 15 mg PO HS 02/16/20 01/12/24 tablet rivaroxaban 20 mg tablet (Xarelto) 20 mg PO DAILY 02/16/20 01/12/24 vit C 250 mg-vit E 90 mg-zinc 40 2 tablet PO DAILY 02/16/20 01/12/24 mg-copper 1 [id number] capsule (PreserVision AREDS-2) calcium carbonate 600 mg-vitamin 1 cap PO DAILY 10/15/20 01/13/24 D3 12.5 mcg (500 unit) capsule famotidine 40 mg tablet 40 mg PO BID 10/15/20 01/12/24 mirabegron 25 mg tablet,extended 25 mg PO DAILY 10/15/20 01/12/24 release 24 hr (Myrbetriq) ascorbic acid (vitamin C) 500 mg 500 mg PO DAILY 01/06/23 01/12/24 tablet ferrous gluconate 324 mg (38 mg 648 mg PO DAILY 01/06/23 01/12/24 iron) tablet levothyroxine 150 mcg capsule 150 mcg PO QAM 01/06/23 01/12/24 trazodone 100 mg tablet 200 mg PO HS Insomnia 02/21/23 01/12/24 omeprazole 40 mg capsule,delayed 40 mg PO DAILY 05/18/23 01/12/24 release potassium chloride 20 mEq oral 20 meq PO DAILY 05/18/23 01/12/24 packet (Klor-Con) valsartan 320 mg tablet 320 mg PO DAILY 05/18/23 01/12/24 hypromellose 2.5 % eye drops 1 drp EACH EYE TID PRN Dry Eye(S) 11/02/23 01/12/24 simethicone 80 mg chewable tablet 80 mg PO Q6H PRN Indigestion 11/02/23 01/12/24 gabapentin 600 mg tablet 600 mg PO TID 12/25/23 01/12/24 budesonide-formoterol HFA 160 2 puff inhalation Q12H 01/13/24 01/13/24 mcg-4.5 mcg/actuation aerosol inhaler (Symbicort) duloxetine 30 mg capsule,delayed 30 mg PO DAILY 01/13/24 01/13/24 release (Cymbalta) esomeprazole magnesium 40 mg 40 mg PO DAILY 01/13/24 01/13/24 capsule,delayed release levofloxacin 250 mg tablet 250 mg PO DAILY 01/13/24 01/13/24 oxycodone 5 mg tablet 5 mg PO Q12H PRN Pain 01/13/24 01/13/24 Allergies Allergy/AdvReac Type Severity Reaction Status Date / Time Methotrexate Analogues Allergy Unknown mouth sores Verified 02/17/23 13:43 Sulfa (Sulfonamide Allergy Unknown unknown Verified 02/17/23 13:43 Antibiotics) Review of Systems Review of Systems: All systems reviewed & are unremarkable except as noted in HPI. All systems reviewed & are unremarkable except as noted in HPI and below [facility] Past Medical History Medical History (Updated 01/13/24 @ 01:44 by Indira Rob PA-C) Anemia Anxiety Chronic diastolic congestive heart failure Echocardiogram in October 2018 demonstrated hyperdynamic left ventricular function with an ejection fraction of 71%, moderate left atrial enlargement, and grade 2 diastolic dysfunction. Chronic pain syndrome Chronic wound infection of abdomen On long-term doxycycline b.i.d. 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 Depression Essential hypertension Gastroesophageal reflux disease Hyperlipidemia Macular degeneration Morbid obesity Obstructive sleep apnea on CPAP Overactive bladder Persistent atrial fibrillation Pneumonia due to COVID-19 virus (03/2020) Postsurgical h
[2024-01-12 20:28] LABS: Basophils Percent Auto 0.1 % (0.2-1.2); Eosinophils Percent Auto 0.1 % (0-4.4); Hematocrit 43.5 % (37.0-47.0); Hemoglobin 13.4 g/dL (12.0-15.0); Immature Granulocyte Absolute 0.03 K/mm3 (0.00-0.031); Immature Granulocyte Percent A 0.3 % (0-0.5); Lymphocytes Absolute Auto 0.42 K/mm3 (0.9-3.2); Lymphocytes Percent Auto 4.3 % (18.3-44.2); Mean Corpuscular HGB Conc 30.8 g/dl (32-36); Mean Corpuscular Hemoglobin 31.8 pg (26-34); Mean Corpuscular Volume 103.3 fl (80-100); Mean Platelet Volume 9.8 fl (7.4-10.4); Monocytes Absolute Auto 0.5 K/mm3 (0.1-0.6); Monocytes Percent Auto 5.2 % (2.6-8.5); Neutrophils Absolute Auto 8.7 K/mm3 (1.3-6.7); Platelet Count Result 229 k/mm3 (150-375); Red Blood Count 4.21 M/mm3 (4.2-5.4); Red Cell Distribution Width 15.2 % (11.5-14.5); White Blood Count 9.7 K/mm3 (4.5-10.0)
[2024-01-12] MEDS: AZITHROMYCIN 500 MG/NS 250 ML 500 MG/250 ML BAG 250 MG IVPB (20:31)
[2024-01-12 20:40] LABS: Magnesium 1.9 mg/dL (1.6-2.3)
[2024-01-12 20:42] LABS: Alanine Aminotransferase 27 U/L (6-35); Albumin Level 3.5 g/dL (3.5-5.1); Alkaline Phosphatase 108 U/L (38-126); Aspartate Amino Transferase 29 U/L (14-36); Bilirubin,Total 0.6 mg/dL (0.2-1.3); Blood Urea Nitrogen 20 mg/dL (7-17); Calcium 8.2 mg/dL (8.4-10.2); Carbon Dioxide > 40 mmol/L (22-30); Chloride 92 mmol/L (98-107); Estimated CRCL calculation 58 ml/min; Estimated Glomerular Filt Rate > 60; Glucose 116 mg/dL (65-110); Potassium 3.8 mmol/L (3.4-5.0); Sodium 138 mmol/L (137-145)
[2024-01-12 20:43] LABS: Lactic Acid Reflex 1.2 mmol/L (0.7-2.0)
--- NOTE | 2024-01-12 20:44 | ECG_ITS ---
Test Date: 2024-01-12 20:49:09 Measurements Intervals [place] Rate: 90 P: 0 MT: 0 QRS: 68 QRSD: 74 T: 42 QT: 363 QTc: 446 Interpretive Statements ATRIAL FIBRILLATION BASELINE ARTIFACT- I, II, III, AVR, AVL, AVF, V1-V3 ABNORMAL ECG Compared to ECG 01/12/2024 16:42:10 NO SIGNIFICANT CHANGE Electronically Signed On 01-13-2024 07:43:44 CDT by Saji Lyons D.O.
[2024-01-12 20:53] LABS: NT Pro B Type Natriuretic Pept 5650 pg/mL (19.9-100); Troponin I < 0.012 ng/mL (0.000-0.034)
[2024-01-12] MEDS: VANCOMYCIN 1,250 MG/NS 250 ML 1,250 MG/250 ML BAG 166.67 MG IVPB ×2 (20:59→23:56)
[2024-01-12 21:06] LABS: Influenza A QL RT-PCR Negative (Negative); Influenza B QL RT-PCR Negative (Negative); RSV RNA, RT-PCR Negative (Negative); SARS-CoV-2 RNA PCR Negative (Negative)
[2024-01-12 22:28] LABS: MRSA (PCR) DETECTED (NOT DETECTE)
--- NOTE | 2024-01-12 23:15 | PM.IMHP ---
H&P: HPI History of Present Illness Date/Time: 01/12/24 23:15 Chief Complaint: Shortness of breath Narrative: 83-year-old female with past medical history of morbid obesity, chronic hypoxic hypercapnic respiratory failure, atrial fibrillation on chronic anticoagulation, obstructive sleep apnea, diastolic heart failure among other comorbidities who presented to the ER from [facility] for evaluation of shortness of breath. Patient was evaluated by [facility] providers on January 09 and diagnosed with pneumonia. She was started on Levaquin 250 mg daily. Despite being on antibiotics for 2 days she was developing some increased shortness of breath and chest tightness. She reports that she has chronic sputum production or her sputum is usually yellow in color but more recently her sputum has been green as well. She denies any fevers or chills. She has had slightly decreased appetite. She is usually on 5 L by simple mask during the day and on BiPAP at night. EMS brought the patient in on 15 L non-rebreather. She was transition to either high-flow nasal cannula or Airvo with a flow rate of 60 and 93% FiO2. However as the patient was falling asleep they were having difficulty obtaining pulse oximetry. She was transitioned to BiPAP initially with settings of 14/7 with 80% FiO2 and a rate of 12. At the time my evaluation patient was only pulling tidal volumes of 325-350. The patient had required higher settings of 18/7 during prior hospitalizations. These settings were change in patient's tidal volumes were closer to 450. Patient was still having episodes of pauses on telemetry so rate for BiPAP was increased from 12-16 with improvement in rhythm and decreased pauses. Patient white count in the ER was normal. Her ABG demonstrated compensated hypercapnic respiratory failure with a stable electrolyte panel. The patient's MRSA screen was positive. Patient's influenza and COVID PCRs were negative. Chest x-ray in the ER was grossly abnormal with tracheal deviation to left and what appeared marked atelectasis or pleural effusion. I recommended to the ER perforated patient be sent for stat CT of the chest which demonstrated marked left upper and lower lobe collapse due to mucus plugging. Patient had already been started on empiric antibiotic therapy with Rocephin, azithromycin and vancomycin. Patient reported that her breathing felt better on BiPAP and after a nebulizer treatment. Her chest tightness resolved after being placed on BiPAP. Review of Systems Review of Systems: 12 systems were reviewed with pertinent positives and negatives per HPI. Except as documented in the HPI, all other systems were reviewed and are negative. [facility] Past Medical History Medical History (Updated 01/13/24 @ 04:20 by Liza Natarajan DO) Anemia Anxiety Chronic diastolic congestive heart failure Echocardiogram in October 2018 demonstrated hyperdynamic left ventricular function with an ejection fraction of 71%, moderate left atrial enlargement, and grade 2 diastolic dysfunction. Chronic pain syndrome Chronic venous stasis dermatitis Chronic wound infection of abdomen On long-term doxycycline b.i.d. Current use of skilled nursing anticoagulation On Xarelto for stroke prophylaxis given paroxysmal atrial fibrillation. Depression Essential hypertension Gastroesophageal reflux disease Hyperlipidemia Macular degeneration Morbid obesity Obstructive sleep apnea on CPAP Overactive bladder Persistent atrial fibrillation Pneumonia due to COVID-19 virus (03/2020) Postsurgical hypothyroidism Restless leg syndrome Shingles Thyroid cancer Status post thyroidectomy. Surgical History Surgical History History of appendectomy (2003) Complicated postoperative course with chronic midline abdominal wound. History of bilateral cataract extraction History of hernia repair History of orthopedic surgery ORIF right lo
[2024-01-13] VITALS (29 sets, daily range): BP systolic 129–159; BP diastolic 89–123; PULSE 80–111; RESP 18–28; TEMP 36.1–36.8; O2SAT 90–99; BMI 50.4
[2024-01-13] MEDS: FUROSEMIDE INJ 40 MG/4 ML VIAL IV PUSH (00:10)
--- NOTE | 2024-01-13 00:25 | PC.NURSE ---
This patient, Michelle Rogel, was admitted to IMU Room 232-01. Patient/family oriented to hospital policies and general routines including ID bracelet, bed and alarms, visiting hours, pain management, procedures, bathroom and other care routines, personal items, smoking policy, room service/diet, and visiting hours. Information on how to activate the Rapid Response Team has been discussed. Patient/Family are encouraged to report perceived risks to care and to ask questions if they do not understand what they are told or what they should do.
[2024-01-13] MEDS: IPRATROPIUM BR 0.02% INH SOLN 0.5 MG/2.5 ML VIAL INHALATION ×4 (02:57→19:47)
[2024-01-13] MEDS: LEVALBUTEROL NEB 1.25 MG/3 ML INHALATION ×4 (02:57→19:48)
[2024-01-13 05:28] LABS: Hemoglobin 13.8 g/dL (12.0-15.0); Mean Corpuscular HGB Conc 31.4 g/dl (32-36); Mean Corpuscular Hemoglobin 32.1 pg (26-34); Mean Corpuscular Volume 102.3 fl (80-100); Mean Platelet Volume 9.3 fl (7.4-10.4); Platelet Count Result 197 k/mm3 (150-375); Red Cell Distribution Width 15.4 % (11.5-14.5); White Blood Count 12.5 K/mm3 (4.5-10.0)
[2024-01-13 05:41] LABS: Estimated CRCL calculation 56 ml/min; Estimated Glomerular Filt Rate > 60
[2024-01-13 05:47] LABS: Blood Urea Nitrogen 17 mg/dL (7-17); Calcium 8.3 mg/dL (8.4-10.2); Carbon Dioxide > 40 mmol/L (22-30); Chloride 90 mmol/L (98-107); Estimated CRCL calculation 56 ml/min; Estimated Glomerular Filt Rate > 60; Glucose 101 mg/dL (65-110); Potassium 3.2 mmol/L (3.4-5.0); Sodium 138 mmol/L (137-145)
[2024-01-13 05:51] LABS: Troponin I < 0.012 ng/mL (0.000-0.034)
[2024-01-13] MEDS: LEVOTHYROXINE SODIUM 150 MCG TABLET PO (06:12)
[2024-01-13] MEDS: ACETYLCYSTEINE 20% INHAL SOLN 800 MG/4 ML VIAL 200 MG INHALATION ×4 (06:56→19:48)
--- NOTE | 2024-01-13 06:57 | PCRCNOTE ---
Sputum induction not attempted due to patient being on continuous bipap.
[2024-01-13] MEDS: FLUTICASONE/SALMETEROL 115-21 MCG INHALER 1 PUFF 2 PUFF INHALATION (07:10)
[2024-01-13] MEDS: buPROPion HCL SR (12 HR) 150 MG TAB PO ×2 (09:22→20:39)
[2024-01-13] MEDS: GABAPENTIN 300 MG CAPSULE 600 MG PO ×3 (09:22→17:13)
[2024-01-13] MEDS: guaiFENesin 12 HR 600 MG TABCR 1200 MG PO ×2 (09:22→20:40)
[2024-01-13] MEDS: METOPROLOL TARTRATE 50 MG TAB PO ×2 (09:22→20:41)
[2024-01-13] MEDS: OPTI-GEN TAB 2 TABLET PO (09:22)
[2024-01-13] MEDS: POTASSIUM CHLORIDE 20 MEQ ER TABLET 40 MEQ PO (09:22)
[2024-01-13] MEDS: clonazePAM (*CRX) 0.5 MG TABLET 1 MG PO (09:22)
[2024-01-13] MEDS: TOLNAFTATE 1% POWDER 45 GM BTL 1 APPLIC TOPICAL ×2 (09:23→20:42)
[2024-01-13] MEDS: RIVAROXABAN 20 MG TABLET PO (09:23)
[2024-01-13] MEDS: VALSARTAN 160 MG TABLET 320 MG PO (09:23)
[2024-01-13] MEDS: FAMOTIDINE 20 MG TABLET 40 MG PO ×2 (09:23→20:41)
[2024-01-13] MEDS: DULoxetine HCL 30 MG CAPSULE.DR PO (09:23)
[2024-01-13] MEDS: FUROSEMIDE 40 MG TABLET PO (09:23)
[2024-01-13] MEDS: CYANOCOBALAMIN 1,000 MCG TABLET 1000 MCG PO (09:23)
[2024-01-13] MEDS: PANTOPRAZOLE 40 MG TABLET PO (09:23)
--- NOTE | 2024-01-13 12:07 | PM.IMPN ---
Progress Note: A&P Assessment and Plan (1) Acute on chronic respiratory failure with hypoxia and hypercapnia: Code(s): J96.21 - Acute and chronic respiratory failure with hypoxia; J96.22 - Acute and chronic respiratory failure with hypercapnia Status: Acute Assessment and Plan: Pt appears stable. Continue with BiPap settings currently at 18/7 rate of 16. Recheck CXR to assess for left lung interval inflation/resolution of mucous plugging. Continue medications of Vancomycin, Azithromycin and Rocephin. Continue Guaifenesin, Xopenex, Atrovent, Advair, or Mucomyst Awaiting Pulmonology consult. Blood cultures pending. CTA chest showing no PE, but noted Mucous plugging in the left mainstem bronchus and in the right middle lobe bronchus with near complete collapse of the left lung and RML. Underlying PNA cannot be excluded. (2) Collapse of left lung: Code(s): J98.11 - Atelectasis Status: Acute Assessment and Plan: Secondary to mucous plugging. Continue all treatments as in #1. Monitor labs and VS. Awaiting Pulmonology consult. (3) MRSA carrier: Code(s): Z22.322 - Carrier or suspected carrier of Methicillin resistant Staphylococcus aureus Status: Acute Assessment and Plan: Continue Vancomycin at this time as CTA cannot exclude an underlying PNA in conjunction with the mucous plugging. Blood cultures x2 pending. Recheck CXR. (4) Acute exacerbation of CHF (congestive heart failure): Code(s): I50.9 - Heart failure, unspecified Status: Chronic Assessment and Plan: Continue Lasix 60 mg daily. Accurate I&O Daily weights Continue supplemental Potassium as her Potassium today was 3.2. BNP does appear marginally elevated above her baseline of 2K-3K, however it is currently 5650. (5) Mucus plugging of bronchi: Code(s): T17.500A - Unspecified foreign body in bronchus causing asphyxiation, initial encounter Status: Acute Assessment and Plan: See plan for #2 As noted on CTA chest. Time Spent With Patient Time with patient: Greater than 35 minutes Subjective Date/time seen: 01/13/24 0815 Interval history: From H&P: Narrative: 83-year-old female with past medical history of morbid obesity, chronic hypoxic hypercapnic respiratory failure, atrial fibrillation on chronic anticoagulation, obstructive sleep apnea, diastolic heart failure among other comorbidities who presented to the ER from [facility] for evaluation of shortness of breath. Patient was evaluated by skilled nursing providers on January 09 and diagnosed with pneumonia. She was started on Levaquin 250 mg daily. Despite being on antibiotics for 2 days she was developing some increased shortness of breath and chest tightness. She reports that she has chronic sputum production or her sputum is usually yellow in color but more recently her sputum has been green as well. She denies any fevers or chills. She has had slightly decreased appetite. She is usually on 5 L by simple mask during the day and on BiPAP at night. EMS brought the patient in on 15 L non-rebreather. She was transition to either high-flow nasal cannula or Airvo with a flow rate of 60 and 93% FiO2. However as the patient was falling asleep they were having difficulty obtaining pulse oximetry. She was transitioned to BiPAP initially with settings of 14/7 with 80% FiO2 and a rate of 12. At the time my evaluation patient was only pulling tidal volumes of 325-350. The patient had required higher settings of 18/7 during prior hospitalizations. These settings were change in patient's tidal volumes were closer to 450. Patient was still having episodes of pauses on telemetry so rate for BiPAP was increased from 12-16 with improvement in rhythm and decreased pauses. Patient white count in the ER was normal. Her ABG demonstrated compensated hypercapnic respiratory failure with a stable electrolyte panel. The pat
[2024-01-13] MEDS: FUROSEMIDE 20 MG TABLET PO (12:25)
[2024-01-13] MEDS: FERROUS GLUCONATE 324 MG TABLET 648 MG PO (12:25)
--- NOTE | 2024-01-13 12:59 | PM.CNPUL ---
Assessment and Plan Assessment and plan (1) Acute on chronic respiratory failure with hypoxia and hypercapnia: Code(s): J96.21 - Acute and chronic respiratory failure with hypoxia; J96.22 - Acute and chronic respiratory failure with hypercapnia Status: Acute (2) Mucus plugging of bronchi: Code(s): T17.500A - Unspecified foreign body in bronchus causing asphyxiation, initial encounter Status: Acute Assessment and Plan: This 83-year-old female with a history of morbid obesity, sleep-disordered breathing on auto CPAP, and supplemental oxygen presented with a few days' history of increasing shortness of breath. The patient has been diagnosed with left lung atelectasis related to mucus plugging of the left mainstem bronchus, as well as right middle lobe atelectasis. Due to increasing sputum production of yellow to green color and a positive MRSA screening, she has been appropriately treated with vancomycin and ceftriaxone. Since admission, her respiratory status appears stable while receiving BiPAP support (18/7 cm H2O) and supplemental oxygen with an FiO2 of 0.5. On physical exam, she continues to demonstrate absent breath sounds in the left upper chest anteriorly, consistent with persistent left lung collapse. The patient was also evaluated off BiPAP during supper and had no significant shortness of breath while on supplemental oxygen via nasal cannula. Arterial blood gases showed no evidence of exacerbation of her chronic hypercapnic respiratory failure Plan: Continue aggressive pulmonary toilet with nebulized short-acting bronchodilators and nebulized mucolytic agents as prescribed, along with chest physical therapy. Adjust BiPAP settings to 14/8 cm H2O. Repeat a chest X-ray in the morning. If persistent lung collapse is noted, consider other treatment options such as therapeutic bronchoscopy. Will continue to follow the patient along with you. (3) MRSA carrier: Code(s): Z22.322 - Carrier or suspected carrier of Methicillin resistant Staphylococcus aureus Status: Acute (4) Collapse of left lung: Code(s): J98.11 - Atelectasis Status: Acute (5) Chronic anticoagulation: Code(s): Z79.01 - alf (current) use of anticoagulants Status: Acute (6) Persistent atrial fibrillation: Code(s): I48.19 - Other persistent atrial fibrillation Status: Acute History of Present Illness History of Present Illness Consult date: 01/13/24 Chief complaint: Mucous plugging, PNA, Acute on chronic hypoxia/hyp Narrative: This 83-year-old female with a past medical history significant for morbid obesity, chronic hypoxic hypercapnic respiratory failure, and sleep-disordered breathing managed with auto CPAP (5-14 cm H2O) at home, as well as atrial fibrillation on chronic anticoagulation and diastolic heart failure, presented to the ER from a local [facility] for shortness of breath. Reportedly, the patient was diagnosed with possible pneumonia 2 days prior to coming to the emergency room and had been receiving oral levofloxacin daily. Despite antibiotic treatment, she began experiencing increased shortness of breath and chest tightness. She has had chronic sputum production of light yellow color, with a recent increase in amount and change in color. The patient reportedly had no fevers or chills. Upon evaluation in the emergency room, she was found to have left lung atelectasis related to left mainstem bronchus mucus plugging and right middle lobe atelectasis. MRSA screening was positive. The patient has been on antibiotics, specifically ceftriaxone and vancomycin, and is also receiving BiPAP support with settings of 18/7 cm H2O, 50% FiO2, and a respiratory rate of 16. She seems to be tolerating BiPAP support well but continues to experience shortness of breath when off BiPAP. She has no fever, chills, or hemoptysis. The patient underwent a sleep study approximately 15 years ago in
[2024-01-13] MEDS: CALCIUM/VITAMIN D 500 MG/5 MCG (200 I.U.) TABLET PO (17:13)
[2024-01-13] MEDS: traZODone HCL 50 MG TABLET 200 MG PO (20:39)
[2024-01-13] MEDS: AZITHROMYCIN 500 MG/NS 250 ML 500 MG/250 ML BAG 250 MG IVPB (20:42)
[2024-01-13] MEDS: MIRTAZAPINE SOLTAB 15 MG TAB.DISPER PO (20:44)
[2024-01-13] MEDS: VANCOMYCIN 1,500 MG/NS 500 ML 1,500 MG/500 ML BAG 250 MG IVPB (22:27)
[2024-01-14] VITALS (27 sets, daily range): BP systolic 100–166; BP diastolic 69–108; PULSE 88–116; RESP 18–27; TEMP 36.4–36.6; O2SAT 90–98
[2024-01-14] MEDS: IPRATROPIUM BR 0.02% INH SOLN 0.5 MG/2.5 ML VIAL INHALATION ×4 (01:47→20:59)
[2024-01-14] MEDS: LEVALBUTEROL NEB 1.25 MG/3 ML INHALATION ×4 (01:47→20:59)
[2024-01-14] MEDS: ACETYLCYSTEINE 20% INHAL SOLN 800 MG/4 ML VIAL 200 MG INHALATION ×4 (01:48→20:59)
[2024-01-14] MEDS: LEVOTHYROXINE SODIUM 150 MCG TABLET PO (06:12)
[2024-01-14 06:28] LABS: Estimated CRCL calculation 56 ml/min; Estimated Glomerular Filt Rate > 60
[2024-01-14 06:47] LABS: Potassium 3.5 mmol/L (3.4-5.0)
[2024-01-14] MEDS: METOPROLOL TARTRATE 50 MG TAB PO ×2 (08:45→20:08)
[2024-01-14] MEDS: POTASSIUM CHLORIDE 20 MEQ ER TABLET 40 MEQ PO (08:46)
[2024-01-14] MEDS: guaiFENesin 12 HR 600 MG TABCR 1200 MG PO ×2 (08:46→20:08)
[2024-01-14] MEDS: FUROSEMIDE 40 MG TABLET PO (08:46)
[2024-01-14] MEDS: GABAPENTIN 300 MG CAPSULE 600 MG PO ×3 (08:46→17:37)
[2024-01-14] MEDS: PANTOPRAZOLE 40 MG TABLET PO (08:46)
[2024-01-14] MEDS: CYANOCOBALAMIN 1,000 MCG TABLET 1000 MCG PO (08:46)
[2024-01-14] MEDS: FAMOTIDINE 20 MG TABLET 40 MG PO ×2 (08:46→20:08)
[2024-01-14] MEDS: TOLNAFTATE 1% POWDER 45 GM BTL 1 APPLIC TOPICAL ×2 (08:46→20:15)
[2024-01-14] MEDS: buPROPion HCL SR (12 HR) 150 MG TAB PO ×2 (08:46→20:08)
[2024-01-14] MEDS: clonazePAM (*CRX) 0.5 MG TABLET 1 MG PO (08:46)
[2024-01-14] MEDS: VALSARTAN 160 MG TABLET 320 MG PO (08:46)
[2024-01-14] MEDS: DULoxetine HCL 30 MG CAPSULE.DR PO (08:46)
[2024-01-14] MEDS: OPTI-GEN TAB 2 TABLET PO (08:46)
--- NOTE | 2024-01-14 08:52 | PM.PNPUL ---
Progress Note: A&P Assessment and Plan (1) Acute on chronic respiratory failure with hypoxia and hypercapnia: Code(s): J96.21 - Acute and chronic respiratory failure with hypoxia; J96.22 - Acute and chronic respiratory failure with hypercapnia Status: Acute (2) MRSA carrier: Code(s): Z22.322 - Carrier or suspected carrier of Methicillin resistant Staphylococcus aureus Status: Acute (3) CHARLES (obstructive sleep apnea): Code(s): G47.33 - Obstructive sleep apnea (adult) (pediatric) Status: Acute (4) Chronic anticoagulation: Code(s): Z79.01 - director long term care (current) use of anticoagulants Status: Acute (5) Morbid obesity with BMI of 50.0-59.9, adult: Code(s): E66.01 - Morbid (severe) obesity due to excess calories; Z68.43 - Body mass index [BMI] 50.0-59.9, adult Status: Acute (6) Collapse of left lung: Code(s): J98.11 - Atelectasis Status: Acute Assessment and Plan: This 83-year-old female with a past medical history significant for morbid obesity, chronic hypoxic hypercapnic respiratory failure, and sleep-disordered breathing managed with auto CPAP (5-14 cm H2O) at home, as well as atrial fibrillation on chronic anticoagulation and diastolic heart failure, presented to the ER from a local [facility] for [facility] of breath. Reportedly, the patient was diagnosed with possible pneumonia 2 days prior to coming to the emergency room and had been receiving oral levofloxacin daily. Despite antibiotic treatment, she began experiencing increased shortness of breath and chest tightness. She has had chronic sputum production of light yellow color, with a recent increase in amount and change in color. The patient reportedly had no fevers or chills. Upon evaluation in the emergency room, she was found to have left lung atelectasis related to left mainstem bronchus mucus plugging and right middle lobe atelectasis. MRSA screening was positive. The patient has been on antibiotics, specifically ceftriaxone and vancomycin, and is also receiving BiPAP support with settings of 14/8cm H2O, 50% FiO2, and a respiratory rate of 16. She seems to be tolerating BiPAP support well but continues to experience shortness of breath when off BiPAP. She has no fever, chills, or hemoptysis. The patient underwent a sleep study approximately 15 years ago in [place]. She has been chronically on supplemental oxygen at 4 liters/minute and auto CPAP with pressures of 5-14 cm H2O. Her last echocardiogram, approximately 8 months ago, revealed mild left ventricular hypertrophy (LVH), normal left ventricular systolic function, normal ejection fraction (EF), and moderate pulmonary hypertension at 50 mmHg as calculated by transthoracic echocardiogram. She has been on aggressive pulmonary toilet with nebulized short-acting bronchodilators, nebulized mucolytic agents for left lung collapse and right middle lobe atelectasis probably related to mucus plugging. On today's chest x-ray there has been essentially no improvement of left lung collapse. Her respiratory status and overall clinical condition has been essentially unchanged over the last 24 hours. We plan to proceed with a bronchoscopy, hopefully tomorrow afternoon. In preparation for this, I have discontinued the direct anticoagulant and ordered PT/INR. The procedure was explained to the patient, who agreed to it. We will continue to monitor the patient's respiratory status in collaboration with you. A new chest X-ray will be performed tomorrow morning. Subjective Date/time seen: 01/14/24 08:52 Interval history: Patient reports no new respiratory symptoms. Remains essentially dependent on BiPAP support, except while eating. Shortness of breath about unchanged but no other respiratory symptoms such as fever chills hemoptysis or chest pain. She has minimal cough with no sputum production. She has been on a aggressive pulmonary toilet regimen with nebulized short-ac
[2024-01-14 09:14] LABS: INR 1.5; Prothrombin Time 18.5 Seconds (11.1-14.7)
--- NOTE | 2024-01-14 10:41 | P.PNIM_ITS ---
Progress Note: A&P Assessment and Plan (1) Acute on chronic respiratory failure with hypoxia and hypercapnia: Code(s): J96.21 - Acute and chronic respiratory failure with hypoxia; J96.22 - Acute and chronic respiratory failure with hypercapnia Status: Acute Assessment and Plan: * Pt appears stable. * Continue with BiPap settings currently at 18/7 rate of 16. * Recheck CXR to assess for left lung interval inflation/resolution of mucous plugging. * Continue medications of Vancomycin, Azithromycin and Rocephin. * Continue Guaifenesin, Xopenex, Atrovent, Advair, or Mucomyst * Awaiting Pulmonology consult. * Blood cultures pending. * CTA chest showing no PE, but noted Mucous plugging in the left mainstem bronchus and in the right middle lobe bronchus with near complete collapse of the left lung and RML. Underlying PNA cannot be excluded. 01/14/24: * Continue BiPap at 14/8 rate of 16 and 65% FiO2 per Pulmonology. * Continue IV abx * Continue pulmonary toilet * Continue Xopenex, Atrovent, Advair and mucomyst * Per Pulmonology, Bronchoscopy tomorrow * Xarelto to be held today in preparation for Bronch tomorrow. * CXR this AM showed worsening of what had started to look improved. (2) Collapse of left lung: Code(s): J98.11 - Atelectasis Status: Acute Assessment and Plan: * Secondary to mucous plugging. * Continue all treatments as in #1. * Monitor labs and VS. * Awaiting Pulmonology consult. 01/14/24: * See Problem #1 (3) MRSA carrier: Code(s): Z22.322 - Carrier or suspected carrier of Methicillin resistant Staphylococcus aureus Status: Acute Assessment and Plan: * Continue Vancomycin at this time as CTA cannot exclude an underlying PNA in conjunction with the mucous plugging. * Blood cultures x2 pending. * Recheck CXR. 01/14/24: * Continue IV Vancomycin.. * Blood cultures are still pending, but are preliminarily negative. (4) Acute exacerbation of CHF (congestive heart failure): Code(s): I50.9 - Heart failure, unspecified Status: Chronic Assessment and Plan: * Continue Lasix 60 mg daily. * Accurate I&O * Daily weights * Continue supplemental Potassium as her Potassium today was 3.2. * BNP does appear marginally elevated above her baseline of 2K-3K, however it is currently 5650. 01/14/24: * Continue all current treatment. (5) Mucus plugging of bronchi: Code(s): T17.500A - Unspecified foreign body in bronchus causing asphyxiation, initial encounter Status: Acute Assessment and Plan: * See plan for #2 * As noted on CTA chest. Time Spent With Patient Time with patient: 25 - 35 minutes Subjective Date/time seen: 01/14/24 0900 Interval history: Interval history: From H&P: Narrative: 83-year-old female with past medical history of morbid obesity, chronic hypoxic hypercapnic respiratory failure, atrial fibrillation on chronic anticoagulation, obstructive sleep apnea, diastolic heart failure among other comorbidities who presented to the ER from [facility] for evaluation of shortness of breath. Patient was evaluated by [facility] providers on January 09 and diagnosed with pneumonia. She was started on Levaquin 250 mg daily. Despite being on antibiotics for 2 days she was developing some increased shortness of breath and chest tightness. She reports that she has chronic sputum production or her sputum is usually yellow in color but more recently her sputum has been green as well. She denies any fevers or chills. She has had slightly decreased appetite.
--- NOTE | 2024-01-14 10:41 | PM.IMPN ---
Progress Note: A&P Assessment and Plan (1) Acute on chronic respiratory failure with hypoxia and hypercapnia: Code(s): J96.21 - Acute and chronic respiratory failure with hypoxia; J96.22 - Acute and chronic respiratory failure with hypercapnia Status: Acute Assessment and Plan: Pt appears stable. Continue with BiPap settings currently at 18/7 rate of 16. Recheck CXR to assess for left lung interval inflation/resolution of mucous plugging. Continue medications of Vancomycin, Azithromycin and Rocephin. Continue Guaifenesin, Xopenex, Atrovent, Advair, or Mucomyst Awaiting Pulmonology consult. Blood cultures pending. CTA chest showing no PE, but noted Mucous plugging in the left mainstem bronchus and in the right middle lobe bronchus with near complete collapse of the left lung and RML. Underlying PNA cannot be excluded. 01/14/24: Continue BiPap at 14/8 rate of 16 and 65% FiO2 per Pulmonology. Continue IV abx Continue pulmonary toilet Continue Xopenex, Atrovent, Advair and mucomyst Per Pulmonology, Bronchoscopy tomorrow Xarelto to be held today in preparation for Bronch tomorrow. CXR this AM showed worsening of what had started to look improved. (2) Collapse of left lung: Code(s): J98.11 - Atelectasis Status: Acute Assessment and Plan: Secondary to mucous plugging. Continue all treatments as in #1. Monitor labs and VS. Awaiting Pulmonology consult. 01/14/24: See Problem #1 (3) MRSA carrier: Code(s): Z22.322 - Carrier or suspected carrier of Methicillin resistant Staphylococcus aureus Status: Acute Assessment and Plan: Continue Vancomycin at this time as CTA cannot exclude an underlying PNA in conjunction with the mucous plugging. Blood cultures x2 pending. Recheck CXR. 01/14/24: Continue IV Vancomycin.. Blood cultures are still pending, but are preliminarily negative. (4) Acute exacerbation of CHF (congestive heart failure): Code(s): I50.9 - Heart failure, unspecified Status: Chronic Assessment and Plan: Continue Lasix 60 mg daily. Accurate I&O Daily weights Continue supplemental Potassium as her Potassium today was 3.2. BNP does appear marginally elevated above her baseline of 2K-3K, however it is currently 5650. 01/14/24: Continue all current treatment. (5) Mucus plugging of bronchi: Code(s): T17.500A - Unspecified foreign body in bronchus causing asphyxiation, initial encounter Status: Acute Assessment and Plan: See plan for #2 As noted on CTA chest. Time Spent With Patient Time with patient: 25 - 35 minutes Subjective Date/time seen: 01/14/24 0900 Interval history: Interval history: From H&P: Narrative: 83-year-old female with past medical history of morbid obesity, chronic hypoxic hypercapnic respiratory failure, atrial fibrillation on chronic anticoagulation, obstructive sleep apnea, diastolic heart failure among other comorbidities who presented to the ER from [facility] for evaluation of shortness of breath. Patient was evaluated by assisted providers on January 09 and diagnosed with pneumonia. She was started on Levaquin 250 mg daily. Despite being on antibiotics for 2 days she was developing some increased shortness of breath and chest tightness. She reports that she has chronic sputum production or her sputum is usually yellow in color but more recently her sputum has been green as well. She denies any fevers or chills. She has had slightly decreased appetite. She is usually on 5 L by simple mask during the day and on BiPAP at night. EMS brought the patient in on 15 L non-rebreather. She was transition to either high-flow nasal cannula or Airvo with a flow rate of 60 and 93% FiO2. However as the patient was falling asleep they were having difficulty obtaining pulse oximetry. She was transitioned to BiPAP initially with settings of 14/7 with 80% FiO2 and a rate of 12. At
[2024-01-14] MEDS: FERROUS GLUCONATE 324 MG TABLET 648 MG PO (12:29)
[2024-01-14] MEDS: FUROSEMIDE 20 MG TABLET PO (12:29)
[2024-01-14] MEDS: CALCIUM/VITAMIN D 500 MG/5 MCG (200 I.U.) TABLET PO (17:37)
[2024-01-14] MEDS: traZODone HCL 50 MG TABLET 200 MG PO (20:08)
[2024-01-14] MEDS: MIRTAZAPINE SOLTAB 15 MG TAB.DISPER PO (20:08)
[2024-01-14 20:42] LABS: Vancomycin Trough 8.4 ug/mL (10.0-20.0)
[2024-01-14] MEDS: AZITHROMYCIN 500 MG/NS 250 ML 500 MG/250 ML BAG 250 MG IVPB (20:47)
[2024-01-14] MEDS: FLUTICASONE/SALMETEROL 115-21 MCG INHALER 1 PUFF 2 PUFF INHALATION (20:59)
[2024-01-14] MEDS: VANCOMYCIN 1,500 MG/NS 500 ML 1,500 MG/500 ML BAG 250 MG IVPB (21:44)
[2024-01-15] VITALS (41 sets, daily range): BP systolic 110–153; BP diastolic 69–109; PULSE 70–132; RESP 16–28; TEMP 36.1–36.6; O2SAT 75–100
[2024-01-15] MEDS: LEVALBUTEROL NEB 1.25 MG/3 ML INHALATION ×4 (02:35→20:35)
[2024-01-15] MEDS: IPRATROPIUM BR 0.02% INH SOLN 0.5 MG/2.5 ML VIAL INHALATION ×4 (02:36→20:34)
[2024-01-15] MEDS: ACETYLCYSTEINE 20% INHAL SOLN 800 MG/4 ML VIAL 200 MG INHALATION ×4 (02:36→20:34)
[2024-01-15] MEDS: LEVOTHYROXINE SODIUM 150 MCG TABLET PO (05:13)
[2024-01-15 05:29] LABS: Estimated CRCL calculation 45 ml/min; Estimated Glomerular Filt Rate 53
[2024-01-15] MEDS: FLUTICASONE/SALMETEROL 115-21 MCG INHALER 1 PUFF 2 PUFF INHALATION ×2 (07:57→20:35)
[2024-01-15 08:45] LABS: Alanine Aminotransferase 20 U/L (6-35); Alkaline Phosphatase 88 U/L (38-126); Aspartate Amino Transferase 24 U/L (14-36); Bilirubin,Total 0.7 mg/dL (0.2-1.3); Blood Urea Nitrogen 18 mg/dL (7-17); Calcium 7.9 mg/dL (8.4-10.2); Carbon Dioxide > 40 mmol/L (22-30); Chloride 90 mmol/L (98-107); Estimated CRCL calculation 46 ml/min; Estimated Glomerular Filt Rate 53; Glucose 96 mg/dL (65-110); Potassium 3.9 mmol/L (3.4-5.0); Sodium 135 mmol/L (137-145)
[2024-01-15 08:47] LABS: Basophils Percent Auto 0.4 % (0.2-1.2); Eosinophils Absolute Auto 0.1 K/mm3 (0-0.3); Eosinophils Percent Auto 0.8 % (0-4.4); Hematocrit 37.9 % (37.0-47.0); Hemoglobin 11.5 g/dL (12.0-15.0); Immature Granulocyte Absolute 0.05 K/mm3 (0.00-0.031); Immature Granulocyte Percent A 0.7 % (0-0.5); Lymphocytes Absolute Auto 0.49 K/mm3 (0.9-3.2); Lymphocytes Percent Auto 6.7 % (18.3-44.2); Mean Corpuscular HGB Conc 30.3 g/dl (32-36); Mean Corpuscular Hemoglobin 31.3 pg (26-34); Mean Corpuscular Volume 103.3 fl (80-100); Mean Platelet Volume 10.3 fl (7.4-10.4); Monocytes Absolute Auto 0.7 K/mm3 (0.1-0.6); Monocytes Percent Auto 9.3 % (2.6-8.5); Neutrophils Percent Auto 82.1 % (45.5-73.1); Platelet Count Result 169 k/mm3 (150-375); Red Blood Count 3.67 M/mm3 (4.2-5.4); Red Cell Distribution Width 15.7 % (11.5-14.5); White Blood Count 7.3 K/mm3 (4.5-10.0)
[2024-01-15] MEDS: VANCOMYCIN 1,500 MG/NS 500 ML 1,500 MG/500 ML BAG 250 MG IVPB ×2 (08:54→21:19)
[2024-01-15] MEDS: VALSARTAN 160 MG TABLET 320 MG PO (08:57)
[2024-01-15] MEDS: guaiFENesin 12 HR 600 MG TABCR 1200 MG PO ×2 (08:57→21:08)
[2024-01-15] MEDS: OPTI-GEN TAB 2 TABLET PO (08:58)
[2024-01-15] MEDS: clonazePAM (*CRX) 0.5 MG TABLET 1 MG PO (08:58)
[2024-01-15] MEDS: METOPROLOL TARTRATE 50 MG TAB PO ×2 (08:59→21:08)
[2024-01-15] MEDS: buPROPion HCL SR (12 HR) 150 MG TAB PO (08:59)
[2024-01-15] MEDS: GABAPENTIN 300 MG CAPSULE 600 MG PO (08:59)
[2024-01-15] MEDS: CYANOCOBALAMIN 1,000 MCG TABLET 1000 MCG PO (08:59)
[2024-01-15] MEDS: DULoxetine HCL 30 MG CAPSULE.DR PO (08:59)
[2024-01-15] MEDS: FUROSEMIDE 40 MG TABLET PO (08:59)
[2024-01-15] MEDS: FAMOTIDINE 20 MG TABLET 40 MG PO ×2 (08:59→21:08)
[2024-01-15] MEDS: PANTOPRAZOLE 40 MG TABLET PO (08:59)
[2024-01-15] MEDS: POTASSIUM CHLORIDE 20 MEQ ER TABLET 40 MEQ PO (08:59)
[2024-01-15] MEDS: TOLNAFTATE 1% POWDER 45 GM BTL 1 APPLIC TOPICAL ×2 (09:00→21:08)
--- NOTE | 2024-01-15 09:15 | PM.IMPN ---
Progress Note: A&P Assessment and Plan (1) Acute on chronic respiratory failure with hypoxia and hypercapnia: Code(s): J96.21 - Acute and chronic respiratory failure with hypoxia; J96.22 - Acute and chronic respiratory failure with hypercapnia Status: Acute Assessment and Plan: Patient is chronically on 5 L mask daily and BIPAP at night. - Acute component of respiratory failure is likely due to mucus plugging suspected underlying pneumonia that cannot be ruled out. - Remains on BIPAP at this time with plan of bronchoscopy on 01/14. - Pulmonology following. (2) Acute exacerbation of CHF (congestive heart failure): Code(s): I50.9 - Heart failure, unspecified Status: Chronic Assessment and Plan: - Symptoms: shortness of breath - Current medications: lasix 20 mg daily - BNP: 5650 - EKG: atrial fibrillation - Chest XR 01/11: New near complete opacification of the left hemithorax which could represent pneumonia, atelectasis, pleural effusion or combination thereof. Bandlike discoid atelectasis at the right lower lung zone. Chest CTA 01/11: 1. No pulmonary embolism. 2. Mucous plugging in the left mainstem bronchus and in the right middle lobe bronchus with near complete collapse of the left lung and right middle lobe. Underlying pneumonia within the collapsed portion of the lung cannot be excluded. 3. Cardiomegaly with biatrial enlargement and small pericardial effusion. 4. Small fat-containing upper abdominal ventral hernia. Chest XR 01/12: [id number] left pleural effusion with probable left lower lobe atelectasis versus possibly pneumonia. Correlate clinically. Interval reexpansion of left upper lobe since prior exam. Persistent hazy airspace disease right lung base, which could reflect pulmonary edema versus pneumonia. Chest XR 01/13: Complete left lung atelectasis with probable associated underlying left pleural effusion. Hazy bibasilar airspace disease, suggestive of pulmonary edema versus possibly pneumonia. Correlate clinically. Chest XR 01/14: Complete left lung atelectasis with associated leftward mediastinal shift. Hazy right basilar airspace disease, most compatible mild pulmonary edema. Correlate clinically for pneumonia. - Monitor vital signs, I&Os, BUN/creatinine, daily weights, neuro status and patient is a fall risk - Monitor serum electrolytes, Keep serum Potassium>4 and serum Magnesium>2 and CBC - Continue Lasix 60 mg daily. (3) Collapse of left lung: Code(s): J98.11 - Atelectasis Status: Acute Assessment and Plan: Secondary to mucous plugging. Pneumonia cannot be ruled out. - Chest XR 01/11: New near complete opacification of the left hemithorax which could represent pneumonia, atelectasis, pleural effusion or combination thereof. Bandlike discoid atelectasis at the right lower lung zone. Chest CTA 01/11: 1. No pulmonary embolism. 2. Mucous plugging in the left mainstem bronchus and in the right middle lobe bronchus with near complete collapse of the left lung and right middle lobe. Underlying pneumonia within the collapsed portion of the lung cannot be excluded. 3. Cardiomegaly with biatrial enlargement and small pericardial effusion. 4. Small fat-containing upper abdominal ventral hernia. Chest XR /2: [id number] left pleural effusion with probable left lower lobe atelectasis versus possibly pneumonia. Correlate clinically. Interval reexpansion of left upper lobe since prior exam. Persistent hazy airspace disease right lung base, which could reflect pulmonary edema versus pneumonia. Chest XR /3: Complete left lung atelectasis with probable associated underlying left pleural effusion. Hazy bibasilar airspace disease, suggestive of pulmonary edema versus possibly pneumonia. Correlate clinically. Chest XR /4: Complete left lung atelectasis with associated leftward mediastinal shift. Hazy right basilar airspace disease, most compatible mild pulmonary edema. Correlate clinically for pne
[2024-01-15 12:12] LABS: INR 1.3; Prothrombin Time 16.2 Seconds (11.1-14.7)
--- NOTE | 2024-01-15 12:42 | WPDANESEPPF ---
Anes - Initial Pre Proc Eval Procedure: Operation Date: 01/15/24 13:00 Proposed Procedures p Flexible Bronchoscopy - Dustin Ang MD Date/Time: 01/15/24 12:42 Surgeon: Emani Dooley PA-C Pre Op Diagnosis: Mucous plugging, PNA, Acute on chronic hypoxia/hyp Patient Data Age: 83 Gender: F Height: 1.52 m Weight: 117.5 kg Last Vital Signs Temp 96.9 F L 01/15/24 11:48 Pulse 78 01/15/24 12:00 Resp 18 01/15/24 11:48 BP 153/87 H 01/15/24 11:48 Pulse Ox 100 01/15/24 11:48 O2 Del Method BiPAP 01/15/24 11:45 O2 Flow Rate 60 01/12/24 18:40 FiO2 75 01/15/24 04:00 Allergies Allergy/AdvReac Type Severity Reaction Status Date / Time Methotrexate Analogues Allergy Unknown mouth sores Verified 02/17/23 13:43 Sulfa (Sulfonamide Allergy Unknown unknown Verified 02/17/23 13:43 Antibiotics) Home Medications Medication Instructions Recorded Confirmed Type bupropion HCl 150 mg tablet,12 hr 150 mg PO Q12H 02/16/20 01/12/24 History sustained-release mirtazapine 15 mg disintegrating 15 mg PO HS 02/16/20 01/12/24 History tablet rivaroxaban 20 mg tablet (Xarelto) 20 mg PO DAILY 02/16/20 01/12/24 History vit C 250 mg-vit E 90 mg-zinc 40 2 tablet PO DAILY 02/16/20 01/12/24 History mg-copper 1 [id number]-[id number] capsule (PreserVision AREDS-2) calcium carbonate 600 mg-vitamin 1 cap PO DAILY 10/15/20 01/13/24 History D3 12.5 mcg (500 unit) capsule famotidine 40 mg tablet 40 mg PO BID 10/15/20 01/12/24 History mirabegron 25 mg tablet,extended 25 mg PO DAILY 10/15/20 01/12/24 History release 24 hr (Myrbetriq) ascorbic acid (vitamin C) 500 mg 500 mg PO DAILY 01/06/23 01/12/24 History tablet ferrous gluconate 324 mg (38 mg 648 mg PO DAILY 01/06/23 01/12/24 History iron) tablet levothyroxine 150 mcg capsule 150 mcg PO QAM 01/06/23 01/12/24 History trazodone 100 mg tablet 200 mg PO HS Insomnia 02/21/23 01/12/24 History omeprazole 40 mg capsule,delayed 40 mg PO DAILY 05/18/23 01/12/24 History release potassium chloride 20 mEq oral 20 meq PO DAILY 05/18/23 01/12/24 History packet (Klor-Con) valsartan 320 mg tablet 320 mg PO DAILY 05/18/23 01/12/24 History metoprolol tartrate 50 mg tablet 50 mg PO Q12HR #60 tabs 10/12/23 01/12/24 Rx furosemide 40 mg tablet (Lasix) 40 mg PO DAILY #30 tabs 10/13/23 01/12/24 Rx hypromellose 2.5 % eye drops 1 drp EACH EYE TID PRN Dry Eye(S) 11/02/23 01/12/24 History simethicone 80 mg chewable tablet 80 mg PO Q6H PRN Indigestion 11/02/23 01/12/24 History tolnaftate 1 % topical powder 1 applic topical Q12HR #1 11/09/23 01/12/24 Rx applicator gabapentin 600 mg tablet 600 mg PO TID 12/25/23 01/12/24 History clonazepam 1 mg tablet 1 mg PO DAILY #10 tabs 12/30/23 01/12/24 Rx cyanocobalamin (vitamin B-12) 1,000 mcg PO QAM #30 tabs 12/30/23 01/12/24 Rx 1,000 mcg tablet (Vitamin B-12) furosemide 20 mg tablet 20 mg PO 1400 #30 tabs 12/30/23 01/12/24 Rx ipratropium 0.5 mg-albuterol 3 mg 3 ml inhalation Q6HRT PRN 12/30/23 01/12/24 Rx (2.5 mg base)/3 mL nebulization Shortness Of Breath Or Wheezing soln #90 mL budesonide-formoterol HFA 160 2 puff inhalation Q12H 01/13/24 01/13/24 History mcg-4.5 mcg/actuation aerosol inhaler (Symbicort) duloxetine 30 mg capsule,delayed 30 mg PO DAILY 01/13/24 01/13/24 History release (Cymbalta) esomeprazole magnesium 40 mg 40 mg PO DAILY 01/13/24 01/13/24 History capsule,delayed release levofloxacin 250 mg tablet 250 mg PO DAILY 01/13/24 01/13/24 History oxycodone 5 mg tablet 5 mg PO Q12H PRN Pain 01/13/24 01/13/24 History Laboratory Tests 01/14/24 01/15/24 01/15/24 19:55 05:09 05:11 WBC 7.3 K/mm3 (4.5-10.0) RBC 3.67 L M/mm3 (4.2-5.4) Hgb 11.5 L g/dL (12.0-15.0) Hct 37.9 % (37.0-47.0) MCV 103.3 H fl (80-100) MCH 31.3 pg (26-34) MCHC 30.3 L g/dl (32-36) RDW 15.7 H % (11.5-14.5) Plt Coun
[2024-01-15] MEDS: SODIUM CHLORIDE 0.9% IV 500 ML BAG IRRIGATION (12:54)
[2024-01-15] MEDS: LACTATED RINGERS 1,000 ML 150 ML IV CONT (13:03)
[2024-01-15] MEDS: LIDOCAINE HCL 2% JELLY 5 ML TUBE 1 APPLIC MUCOUS MEM (13:08)
[2024-01-15] MEDS: LIDOCAINE HCL 2% LOCAL INJ 20 ML VIAL IRRIGATION (13:55)
--- NOTE | 2024-01-15 14:37 | SUR.OPER ---
1421Decision made to send pt to ICU. Dr. Ang attempted to reach the life educator Dr. Tillman. Message left. 1438 Dr Tillman returned call and report being given to Dr. Tillman from Dr. Day.
--- NOTE | 2024-01-15 14:43 | PM.PNPUL ---
Progress Note: A&P Assessment and Plan (1) Acute on chronic respiratory failure with hypoxia and hypercapnia: Code(s): J96.21 - Acute and chronic respiratory failure with hypoxia; J96.22 - Acute and chronic respiratory failure with hypercapnia Status: Acute (2) MRSA carrier: Code(s): Z22.322 - Carrier or suspected carrier of Methicillin resistant Staphylococcus aureus Status: Acute (3) CHARLES (obstructive sleep apnea): Code(s): G47.33 - Obstructive sleep apnea (adult) (pediatric) Status: Acute (4) Chronic anticoagulation: Code(s): Z79.01 - intermediate card tender (current) use of anticoagulants Status: Acute (5) Morbid obesity with BMI of 50.0-59.9, adult: Code(s): E66.01 - Morbid (severe) obesity due to excess calories; Z68.43 - Body mass index [BMI] 50.0-59.9, adult Status: Acute (6) Collapse of left lung: Code(s): J98.11 - Atelectasis Status: Acute Assessment and Plan: This 83-year-old female with a past medical history significant for morbid obesity, chronic hypoxic hypercapnic respiratory failure, and sleep-disordered breathing managed with auto CPAP (5-14 cm H2O) at home, as well as atrial fibrillation on chronic anticoagulation and diastolic heart failure, presented to the ER from a local half-way for shortness of breath. Reportedly, the patient was diagnosed with possible pneumonia 2 days prior to coming to the emergency room and had been receiving oral levofloxacin daily. Despite antibiotic treatment, she began experiencing increased shortness of breath and chest tightness. She has had chronic sputum production of light yellow color, with a recent increase in amount and change in color. The patient reportedly had no fevers or chills. Upon evaluation in the emergency room, she was found to have left lung atelectasis related to left mainstem bronchus mucus plugging and right middle lobe atelectasis. MRSA screening was positive. The patient has been on antibiotics, specifically ceftriaxone and vancomycin, and is also receiving BiPAP support with settings of 14/8cm H2O, 50% FiO2, and a respiratory rate of 16. She seems to be tolerating BiPAP support well but continues to experience shortness of breath when off BiPAP. She has no fever, chills, or hemoptysis. The patient underwent a sleep study approximately 15 years ago in [place]. She has been chronically on supplemental oxygen at 4 liters/minute and auto CPAP with pressures of 5-14 cm H2O. Her last echocardiogram, approximately 8 months ago, revealed mild left ventricular hypertrophy (LVH), normal left ventricular systolic function, normal ejection fraction (EF), and moderate pulmonary hypertension at 50 mmHg as calculated by transthoracic echocardiogram. Despite aggressive pulmonary toilet with nebulized short-acting bronchodilators, nebulized mucolytic agents for left lung collapse and right middle lobe atelectasis the left lung atelectasis persisted. The patient underwent therapeutic bronchoscopy this p.m.. On bronchoscopy she had mucus plugging in the left lung at the level of secondary jimmie with marked bronchial wall edema erythema i involving both the left upper lobe and the left lower lobe. there was more narrowing there was more narrowing in the left upper lobe as the scope could not get advanced into the left upper lobe. When the scope advanced into the left lower lobe there was some narrowing related to bronchial wall mucosa and also is narrowing related to extrinsic compression. A small amount of secretions were suction also from the left lower lobe. A postprocedure the patient required BiPAP support with pressures 14/8 but 100% FiO2 to maintain O2 saturation around 91-94%. On physical exam there was air entry to the left lung postprocedure. Chest x-ray done post bronchoscopy showed inflated left lung the bilateral lower lobe atelectasis. Plan: Patient will be transferred to the intensive care unit to be
[2024-01-15] MEDS: methylPREDNISolone SOD SUCC 125 MG VIAL 80 MG IV PUSH (15:23)
[2024-01-15 15:26] LABS: Alveolar/Arterial O2 Gradient 523.5 mmHg; Base Excess ABG 8.9 mEq/l (+/-2.0); Fractional Inspired Oxygen 100 %; HCO3 ABG 35.5 mEq/l (22.0-26.0); Oxygen Content ABG 17.7 %vol (16.0-22.0); Oxygen Saturation ABG 98.6 % (95.0-100.0); Oxyhemoglobin 97.2 % THb (90.0-100.0); PCO2 ABG 58.1 mmHg (35.0-45.0); PO2 ABG 131.4 mmHg (80.0-100.0); PO2 FiO2 Ratio Arterial Blood 1.31 %; Total Hemoglobin 12.8 g/dL (12.0-18.0); pH ABG 7.404 (7.350-7.450)
[2024-01-15 15:27] LABS: Device NON-INVASIVE VENT; Modified Allen's Test Pass; Non-Invasive Expiratory Pressure 8 CMH2O; Non-Invasive Inspiratory Pressure 14 CMH2O; Non-Invasive Vent Rate 16 /MIN; Site Drawn RIGHT RADIAL
[2024-01-15] MEDS: AZITHROMYCIN 500 MG/NS 250 ML 500 MG/250 ML BAG 250 MG IVPB (21:14)
[2024-01-15 22:02] LABS: INR 1.3; Prothrombin Time 16.3 Seconds (11.1-14.7)
[2024-01-15 22:56] LABS: Glucose Point of Care 134 mg/dl (65-105)
[2024-01-15 23:20] LABS: Alveolar/Arterial O2 Gradient 567.5 mmHg; Base Excess ABG -1.4 mEq/l (+/-2.0); Fractional Inspired Oxygen 100 %; Oxygen Content ABG 20.1 %vol (16.0-22.0); Oxygen Saturation ABG 97.5 % (95.0-100.0); Oxyhemoglobin 96.2 % THb (90.0-100.0); PCO2 ABG 42.8 mmHg (35.0-45.0); PO2 ABG 102.7 mmHg (80.0-100.0); PO2 FiO2 Ratio Arterial Blood 1.03 %; Total Hemoglobin 14.8 g/dL (12.0-18.0); pH ABG 7.366 (7.350-7.450)
[2024-01-15 23:23] LABS: Device OTHER DEVICE; Site Drawn ARTLINE
--- NOTE | 2024-01-16 00:39 | PDCODEBLUE ---
Code Blue Note Code Blue Note Time Arrived at Code Blue: 22:42 Initial Rhythm on Arrival: PEA Airway Management: Pt intubated during resuscitation (Patient intubated during prior resuscitation) Chest Compressions: In process on arrival to bedside Result of Code Blue: Pt Cardiac Rhythm Post Code: Asystole Code Blue Summary: Patient had went into PEA at 22:14. The patient had been resuscitated by the nurse practitioner. Labs were drawn post initial code with results still pending when the patient had her 2nd code. Lab called that the patient's blood specimens had clotted and lab results were not available for review. The patient had received 1 round of epinephrine and was intubated with Rosc. Then at 22:42 the patient again Ar down and went in to PEA. I arrived about a minute after the code was called chest compressions were in process and epinephrine was being administered. The patient received several rounds of epinephrine, an amp of calcium and a couple of amps of bicarb. We got ROSC. Patient's heart rate was in the 130s in appeared to be sinus. Patient blood pressure post code was initially in the 160s systolic but diastolics were elevated into the 120s. The patient's and son arrived at bedside at this point. Patient was given a L fluid bolus as blood pressures began to declined. Patient was initiated on Levophed through midline. Patient had pulses at or difficult to palpate I attempted arterial line in the right groin. I did obtain or blood return but guidewire would not feed. I also attempted in the left groin during further resuscitation efforts but patient's blood clotted in the needle multiple times. Throughout this whole process patient was monitored continuously and fluids were administered and titrated. Respiratory therapy to the patient off ventilator and continued to bag the patient with improvement in oxygen saturations. Patient's heart rate also improved an oxygen saturations were in the upper 80s and low 90s. But the patient's PEEP had to be increased to 20 to maintain sats. The patient's blood pressure had dropped on 1 pressor and it was uncertain if we could feel pulses. I used bedside ultrasound to evaluate cardiac motion. At that time patient did have will look like markedly decreased right ventricular filling but clearly perfusing rhythm. At that time dopamine was added. Of the patient had crepitus of the chest wall and was difficult to bad. Patient had large amounts of blood coming up from the ET tube since intubation during initials resuscitation. Patient had increasing amounts of hemorrhage from the ET tube. When femoral line was attempted patient also had copious amounts of blood loss from puncture site with probably 50 mL of blood loss. Patient had marked bruising to the chest wall. Chest x-ray was performed. I stepped other room to discuss the patient's case with the family while chest x-ray was being obtained. While I was discussing the patient's condition with the family her heart rate again began to decline. As I arrived at the patient's bedside 23:53 the patient again went into PEA. CPR was again resumed. Patient again received 3 doses of epinephrine and 1 or 2 amps of bicarb. Initial rhythm was again PEA after 3 rounds of CPR patient's rhythm was then asystole. At that time the patient's eye movements that had been roving with fixed pupils were fixed with no further movement. Time of was called at 00:01 on 01/16/2024. Post code radiology called noted finding of right pneumothorax on x-ray to check ET tube placement. However, official radiology interpretation the received until patient had already went into asystole. I Had not had a chance to review the repeat chest x-ray that occurred between the 2nd and 3rd code as I was in the conference room discussing the patient's condition with family members when she actually coded the 3rd time.. Postmortem follow-up of x-ray did demonstrate large
--- NOTE | 2024-01-16 01:43 | PCRCNOTE ---
RT received call from ICU charge nurse that the comic writer had been called. RT terminally extubated pt at 01:35 on 01/16/24. Nurse at bedside.
--- NOTE | 2024-01-16 01:51 | PDCODEBLUE ---
Code Blue Note Code Blue Note Time Arrived at Code Natanael: 22:14 Initial Rhythm on Arrival: sinus tachycardia Airway Management: Pt intubated during resuscitation Chest Compressions: Initiated upon arrival Result of Code Blue: ROSC Cardiac Rhythm Post Code: Sinus tachycardia, briefly converted to V-tach and was converted back to sinus tachycardia with defibrillation Code Blue Summary: Patient had change in condition around 10:11 p.m. Patient reported to bedside nurse that she was feeling unwell prior to change and appeared restless. Patient then became unresponsive with agonal breathing. Upon my arrival patient was unresponsive to noxious stimuli, O2 sat at 100%, and sinus tachycardic on the monitor at 100-120. Ambu bag was applied to patient for ventilation. While bagging was initiated patient became bradycardic in the 20s and 30s. No pulse was palpable and CPR was started at 10:19 p.m. Genesis vick called. During intubation patient had brief episode of VFib, then returned to PEA. Patient was intubated at 10:22 p.m., see procedure note. Patient given 2nd dose of epi at 07/02/2023 and ROSC was achieved at 10:25 p.m. Shortly after ROSC was achieved V-tach noted on the monitor and patient was defibrillated at 11:26 p.m. with conversion back to sinus tachycardia with rate ranging between 100-120. BP 133/48. Critical Care Time: I personally spent 35 minutes of direct patient care including (but not limited to) the physical examination, decision-making, bedside evaluation, review of medical records, review of labs and imaging, discussion with nursing staff and other providers for collaborative, critical care management of this patient.
--- NOTE | 2024-01-16 02:02 | P.PCNBED_ITS ---
Procedures Intubation Intubation Date: 01/15/24 Intubation Time: 22:22 Consent: emergent procedure A pre-procedural Time-Out was completed immediately before starting the procedure and confirmed: Patient Identification, Site, Procedure, Patient Position and the Availability of Requisite Equipment: No Sedative: none Laryngoscope: fiber optic video scope ET tube size: 7.5 Tube secured depth (cm): 25 Tube secured location: teeth Tube placement confirmation: visualized tube passing through cords, equal breath sounds bilaterally, no breath sounds over epigastrium and confirmation by capnometry Patient tolerated procedure: well Intubation complications: other (pneumothorax later noted on CXR post- intubation)
--- NOTE | 2024-01-16 02:34 | PC.NURSE ---
Pt pulled up in bed at 2204 and began to feel dizzy and SOB while on Bipap. Pt told RN she was anxious, just needed something for anxiety relief and normally takes Klonipin. RN assessed pt and noted vitals and pt condition stable and went out to call provider. 2209 pt began to yell for help, RN went in to assess. Vitals remained stable and pt c/o anxiousness and feeling SOB again. RN assessing pt when pt began to decompensate. RN yelled for Hailee Hoskins RN to come also assess pt condition. RN was on phone with Olimpia Prasad APRN at the time and updated her on condition when pt became unresponsive and pulse . While NESTOR was in route, pt was agonally breathing and became bradycardiac with a weak pulse. Pt respiratory arrested and pulse was lost, compressions started and Genesis Santoyo called.
--- NOTE | 2024-01-16 02:53 | PC.NURSE ---
Code blue called at 2214.
--- NOTE | 2024-01-16 17:48 | PM.DDS ---
Discharge Summary Date and Time Date of : 01/16/24 Time of : 00:01 Provider Pronounced By: Provider Name of Provider That Pronounced: Dr. Natarajan Probable Cause of Probable Cause of : cardiac arrest Summary Hospital Course: 83-year-old female with past medical history of morbid obesity, chronic hypoxic hypercapnic respiratory failure on 5L mask at baseline, atrial fibrillation on chronic anticoagulation, obstructive sleep apnea on BIPAP, diastolic heart failure among other comorbidities who presented to the ER from [facility] for evaluation of shortness of breath and increased oxygen supplementation requirement. An ABG was obtained and showed compensated hypercapnic respiratory failure. MRSA swab was positive. A chest XR in [facility] ER showed near complete opacification of the left hemithorax which could represent pneumonia, atelectasis, pleural effusion or combination thereof and bandlike discoid atelectasis at the right lower lung zone. Patient was started on empriric antibiotics at that time. Chest CTA showed no PE, but mucous plugging in the left mainstem bronchus and in the right middle lobe bronchus with near complete collapse of the left lung and right middle lobe. Underlying pneumonia within the collapsed portion of the lung cannot be excluded. Pulmonology was consulted at that time. Patient placed on continuous BIPAP and settings adjusted per pulmonology. A repeat lisa XR was obtained on 01/12 which showed [id number] left pleural effusion with probable left lower lobe atelectasis versus possibly pneumonia. Correlate clinically. Interval reexpansion of left upper lobe since prior exam. Persistent hazy airspace disease right lung base, which could reflect pulmonary edema versus pneumonia. The current treatment was continued that day with nebulizers, CPT and antibiotics. A chest XR was obtained on 01/13 complete left lung atelectasis with probable associated underlying left pleural effusion. Hazy bibasilar airspace disease, suggestive of pulmonary edema versus possibly pneumonia. Due to essentially no improvement, pulmonology planned on a bronchoscopy for 01/14. Chest XR on 01/14 showed complete left lung atelectasis with associated leftward mediastinal shift. Hazy right basilar airspace disease, most compatible mild pulmonary edema. The bronchoscopy was performed by Dr. Ang, per note patient tolerated the procedure well. Chest XR post bronchoscopy showed left lung inflation. The patient was then transferred to ICU following the procedure. Overnight patient coded, going into PEA. Please see code blue event notes as I was not present at that time. Additional Data Confirmation of as documented by pronouncing clinician: Pupillary Reflex, Palpable Pulses, Response to Stimuli, Heart Tones and Breath Sounds Name of Provider Notified: Dr. Natarajan Time Provider Notified: 00:01 Provider Requests Autopsy: No Family Requests Autopsy: No Digital Operations Analyst Notified: Yes Date [facility] Transplant Notified of : 01/16/24 Time [facility] Transplant Notified of : 00:56
[2024-01-20 08:02] LABS: Pneumocystis Carinii Smear Not Detected
== END 2024-01-16 00:01 | disposition expired | DRG 208 ==
LOC: ANHED 16:52 → ANHIMU 01-13 00:03 → ANHICU 01-17 10:31 → ANHIMU 01-17 10:31
PROVIDERS: Internal Medicine; Internal Medicine Pulmonary Disease; Nurse Practitioner Adult Health; Student in an Organized Health Care Education/Training Program; Admitting Provider Internal Medicine; Emergency Provider Physician Assistant; PCP Family Medicine; Visit Provider Student in an Organized Health Care Education/Training Program
PROC: 0BJ08ZZ Inspection of Tracheobronchial Tree, Via Natural or Artificial Opening Endoscopic (ICD-10-PCS; CPT 31622; principal; 2024-01-15 13:00)
DX: T17.890A Other foreign object in other parts of respiratory tract causing asphyxiation, initial encounter (principal); J96.22 Acute and chronic respiratory failure with hypercapnia; J18.9 Pneumonia, unspecified organism; J96.21 Acute and chronic respiratory failure with hypoxia; J98.19 Other pulmonary collapse; Z68.43 Body mass index [BMI] 50.0-59.9, adult; I48.19 Other persistent atrial fibrillation; I50.32 Chronic diastolic (congestive) heart failure; J90 Pleural effusion, not elsewhere classified; J93.9 Pneumothorax, unspecified; I11.0 Hypertensive heart disease with heart failure; E66.01 Morbid (severe) obesity due to excess calories; D64.9 Anemia, unspecified; K21.9 Gastro-esophageal reflux disease without esophagitis; H35.30 Unspecified macular degeneration; G89.4 Chronic pain syndrome; G47.33 Obstructive sleep apnea (adult) (pediatric); G25.81 Restless legs syndrome; I46.9 Cardiac arrest, cause unspecified; R00.0 Tachycardia, unspecified; E78.5 Hyperlipidemia, unspecified; N32.81 Overactive bladder; Z96.653 Presence of artificial knee joint, bilateral; Z20.822 Contact with and (suspected) exposure to COVID-19; Z85.850 Personal history of malignant neoplasm of thyroid; Z90.49 Acquired absence of other specified parts of digestive tract; Z98.42 Cataract extraction status, left eye; Z98.41 Cataract extraction status, right eye; Z90.710 Acquired absence of both cervix and uterus; Z79.01 Long term (current) use of anticoagulants; Z86.16 Personal history of COVID-19; Z22.322 Carrier or suspected carrier of Methicillin resistant Staphylococcus aureus; Z99.81 Dependence on supplemental oxygen
CPT/HCPCS: 31500; 36415; 36569; 36600; 71045; 71275; 80048; 80053; 80202; 82375; 82565; 82805; 82948; 83050; 83605; 83735; 83880; 84132; 84484; 85025; 85027; 85610; 87015; 87040; 87070; 87102; 87116; 87205; 87206; 87281; 87637; 87641; 92950; 93005; 94002; 94003; 94640; 94667; 94668; 96365; 96366; 96367; 99285; A9270; C1751; J0171; J0330; J0456; J0696; J1265; J1940; J2371; J2704; J2919; J3010; J3370; J7030; J7040; J7120; Q9967